=== PATIENT | male | born 1960 | race Caucasian/White ===

== ENCOUNTER 2017-02-24 10:31 | Inpatient (IN) | payer OTHER ==
--- NOTE | 2017-02-24 12:24 | ED ---
General Adult HPI - General Chief complaint: Abdominal Pain Stated complaint: abd pain Time Seen by Provider: 02/24/17 12:03 Source: patient, RN notes reviewed Mode of arrival: ambulatory Limitations: no limitations - History of Present Illness Initial comments: Patient is a 48-year-old male presents emergency room for evaluation shortness of breath. Patient states he has a history of COPD. Consider the past week he began having increasing shortness of breath. Patient states he also noticed that his abdomen is very distended along with swelling of his lower legs. Patient states he went to see his primary care provider today. Patient states that she was sent here for further workup. Patient states he was told that he gained 46 pounds in the last 2 months. Patient does admit that he had abnormal labs during last visit and was supposed to follow-up and have imaging and stress test done and never followed up. Patient states he has a history of stroke about 4 years ago. Patient denies history of OR. Patient does state he smokes about a pack per day. Patient states he has a history of alcohol abuse. Patient states he has been alcohol free for about 21 days. Patient states he' s having very short of breath. Patient states having abdominal pain from distention. Patient denies nausea or vomiting. - Related Data Home Medications Medication Instructions Recorded Confirmed Ferrous Sulfate [Feosol] 325 mg PO BID 02/24/17 02/24/17 Levothyroxine Sodium [Synthroid] 150 mcg PO DAILY 02/24/17 02/24/17 Mirtazapine [Remeron] 45 mg PO HS 02/24/17 02/24/17 Nitrostat 0.3mg 1 tab PO Q5M PRN 02/24/17 02/24/17 Pravastatin Sodium [Pravachol] 40 mg PO DAILY 02/24/17 02/24/17 QUEtiapine FUMARATE [SEROquel] 400 mg PO HS 02/24/17 02/24/17 amLODIPine [Norvasc] 10 mg PO DAILY 02/24/17 02/24/17 metFORMIN HCL [Glucophage] 500 mg PO BID 02/24/17 02/24/17 Allergies Allergy/AdvReac Type Severity Reaction Status Date / Time Penicillins Allergy Unknown Verified 02/24/17 13:11 Childhood Review of Systems ROS Statement: Those systems with pertinent positive or pertinent negative responses have been documented in the HPI. ROS Other: All systems not noted in ROS Statement are negative. Past Medical History Past Medical History: COPD, Hypertension, Thyroid Disorder History of Any Multi-Drug Resistant Organisms: None Reported Past Surgical History: Orthopedic Surgery Additional Past Surgical History / Comment(s): right kidney removed Past Psychological History: Depression Smoking Status: Current every day smoker Past Alcohol Use History: Heavy, Occasional Past Drug Use History: None Reported General Exam Limitations: no limitations General appearance: alert Head exam: Present: atraumatic, normocephalic, normal inspection Eye exam: Present: normal appearance Neck exam: Present: normal inspection Respiratory exam: Present: respiratory distress, rales, decreased breath sounds Cardiovascular Exam: Present: normal rhythm, tachycardia, normal heart sounds GI/Abdominal exam: Present: distended, tenderness Extremities exam: Present: other (Bilateral pitting edema) Back exam: Present: normal inspection Neurological exam: Present: alert, oriented X3 Psychiatric exam: Present: normal affect, normal mood Skin exam: Present: warm, dry, intact, normal color. Absent: rash Course Vital Signs 02/24/17 02/24/17 02/24/17 10:33 16:10 16:44 Temperature 97.5 F L 98.9 F 98.8 F Pulse Rate 108 H 99 Pulse Rate [ 100 Pulse Oximetery ] Respiratory 20 16 16 Rate Blood Pressure 149/68 160/85 Blood Pressure 170/80 [Left Arm] O2 Sat by Pulse 99 99 100 Oximetry EKG Findings - EKG Comments: EKG Findings:: Normal sinus rhythm, ventricular rate 100 bpm, DE interval 130 ms , QS duration 80 ms, QT/QTC 382/492 ms Medical Decision Making - Medical Decision Making Patient is a 56-year-old male presents to the emergency room for evaluation of shortness of breath and abdominal distention. D-dimer elevated. CT shows no evidence of PE. Case discussed Dr. Chavis. Dr. Chavis discussed case with Dr. Camargo who came in and evaluated patient. Patient will be admitted for further evaluation of ascites. - Lab Data Result diagrams: 02/24/17 12:42 02/24/17 12:42 Lab Results 02/24/17 02/24/17 02/24/17 Range/Units 12:42 12:42 12:42 WBC 2.6 L (3.8-10.6) k/uL RBC 3.42 L (4.30-5.90) m/uL Hgb 10.3 L (13.0-17.5) gm/dL Hct 32.6 L (39.0-53.0) % MCV 95.2 (80.0-100.0) fL MCH 30.2 (25.0-35.0) pg MCHC 31.7 (31.0-37.0) g/dL RDW 17.0 H (11.5-15.5) % Plt Count 115 L (150-450) k/uL Neutrophils % (Manual) 65.0 % Lymphocytes % (Manual) 24.0 % Monocytes % (Manual) 10.0 % Eosinophils % (Manual) 1.0 % Neutrophils # (Manual) 1.7 (1.3-7.7) k/uL Lymphocytes # (Manual) 0.6 L (1.0-4.8) k/uL Monocytes # (Manual) 0.3 (0-1.0) k/uL Eosinophils # (Manual) 0.0 (0-0.7) k/uL Nucleated RBCs 0 (0-0) /100 WBC Manual Slide Review Performed Hypochromasia Marked Poikilocytosis (manual Present Anisocytosis Slight PT (9.0-12.0) sec INR (<1.1) APTT (22.0-30.0) sec D-Dimer (<0.60) mg/L FEU Sodium 138 (137-145) mmol/L Potassium 4.1 (3.5-5.1) mmol/L Chloride 107 (98-107) mmol/L Carbon Dioxide 22 (22-30) mmol/L Anion Gap 9 mmol/L BUN 9 (9-20) mg/dL Creatinine 0.72 (0.66-1.25) mg/dL Est GFR (MDRD) Af Amer >60 (>60 ml/min/1.73 sqM) Est GFR (MDRD) Non-Af >60 (>60 ml/min/1.73 sqM) Glucose 111 H (74-99) mg/dL Estimated Ave Glu mg/dL mg/dL Hemoglobin A1c (4.2-6.1) % Plasma Lactic Acid Iker (0.7-2.0) mmol/L Calcium 8.7 (8.4-10.2) mg/dL Magnesium 1.8 (1.6-2.3) mg/dL Total Bilirubin 1.7 H (0.2-1.3) mg/dL AST 74 H (17-59) U/L ALT 33 (21-72) U/L Alkaline Phosphatase 146 H (38-126) U/L Total Creatine Kinase 120 (55-170) U/L CK-MB (CK-2) 3.6 H* (0.0-2.4) ng/mL CK-MB (CK-2) Rel Index 3.0 Troponin I <0.012 (0.000-0.034) ng/mL NT-Pro-B Natriuret Pep pg/mL Total Protein 7.5 (6.3-8.2) g/dL Albumin 3.1 L (3.5-5.0) g/dL Amylase 57 (30-110) U/L Lipase 149 (23-300) U/L 02/24/17 02/24/17 02/24/17 Range/Units 12:42 12:42 12:42 WBC (3.8-10.6) k/uL RBC (4.30-5.90) m/uL Hgb (13.0-17.5) gm/dL Hct (39.0-53.0) % MCV (80.0-100.0) fL MCH (25.0-35.0) pg MCHC (31.0-37.0) g/dL RDW (11.5-15.5) % Plt Count (150-450) k/uL Neutrophils % (Manual) % Lymphocytes % (Manual) % Monocytes % (Manual) % Eosinophils % (Manual) % Neutrophils # (Manual) (1.3-7.7) k/uL Lymphocytes # (Manual) (1.0-4.8) k/uL Monocytes # (Manual) (0-1.0) k/uL Eosinophils # (Manual) (0-0.7) k/uL Nucleated RBCs (0-0) /100 WBC Manual Slide Review Hypochromasia Poikilocytosis (manual Anisocytosis PT 15.4 H (9.0-12.0) sec INR 1.6 (<1.1) APTT 29.9 (22.0-30.0) sec D-Dimer 4.72 H (<0.60) mg/L FEU Sodium (137-145) mmol/L Potassium (3.5-5.1) mmol/L Chloride (98-107) mmol/L Carbon Dioxide (22-30) mmol/L Anion Gap mmol/L BUN (9-20) mg/dL Creatinine (0.66-1.25) mg/dL Est GFR (MDRD) Af Amer (>60 ml/min/1.73 sqM) Est GFR (MDRD) Non-Af (>60 ml/min/1.73 sqM) Glucose (74-99) mg/dL Estimated Ave Glu mg/dL mg/dL Hemoglobin A1c (4.2-6.1) % Plasma Lactic Acid Iker 2.8 H* (0.7-2.0) mmol/L Calcium (8.4-10.2) mg/dL Magnesium (1.6-2.3) mg/dL Total Bilirubin (0.2-1.3) mg/dL AST (17-59) U/L ALT (21-72) U/L Alkaline Phosphatase (38-126) U/L Total Creatine Kinase (55-170) U/L CK-MB (CK-2) (0.0-2.4) ng/mL CK-MB (CK-2) Rel Index Troponin I (0.000-0.034) ng/mL NT-Pro-B Natriuret Pep 38 pg/mL Total Protein (6.3-8.2) g/dL Albumin (3.5-5.0) g/dL Amylase (30-110) U/L Lipase (23-300) U/L 02/24/17 Range/Units 12:42 WBC (3.8-10.6) k/uL RBC (4.30-5.90) m/uL Hgb (13.0-17.5) gm/dL Hct (39.0-53.0) % MCV (80.0-100.0) fL MCH (25.0-35.0) pg MCHC (31.0-37.0) g/dL RDW (11.5-15.5) % Plt Count (150-450) k/uL Neutrophils % (Manual) % Lymphocytes % (Manual) % Monocytes % (Manual) % Eosinophils % (Manual) % Neutrophils # (Manual) (1.3-7.7) k/uL Lymphocytes # (Manual) (1.0-4.8) k/uL Monocytes # (Manual) (0-1.0) k/uL Eosinophils # (Manual) (0-0.7) k/uL Nucleated RBCs (0-0) /100 WBC Manual Slide Review Hypochromasia Poikilocytosis (manual Anisocytosis PT (9.0-12.0) sec INR (<1.1) APTT (22.0-30.0) sec D-Dimer (<0.60) mg/L FEU Sodium (137-145) mmol/L Potassium (3.5-5.1) mmol/L Chloride (98-107) mmol/L Carbon Dioxide (22-30) mmol/L Anion Gap mmol/L BUN (9-20) mg/dL Creatinine (0.66-1.25) mg/dL Est GFR (MDRD) Af Amer (>60 ml/min/1.73 sqM) Est GFR (MDRD) Non-Af (>60 ml/min/1.73 sqM) Glucose (74-99) mg/dL Estimated Ave Glu mg/dL 88 mg/dL Hemoglobin A1c 4.7 (4.2-6.1) % Plasma Lactic Acid Iker (0.7-2.0) mmol/L Calcium (8.4-10.2) mg/dL Magnesium (1.6-2.3) mg/dL Total Bilirubin (0.2-1.3) mg/dL AST (17-59) U/L ALT (21-72) U/L Alkaline Phosphatase (38-126) U/L Total Creatine Kinase (55-170) U/L CK-MB (CK-2) (0.0-2.4) ng/mL CK-MB (CK-2) Rel Index Troponin I (0.000-0.034) ng/mL NT-Pro-B Natriuret Pep pg/mL Total Protein (6.3-8.2) g/dL Albumin (3.5-5.0) g/dL Amylase (30-110) U/L Lipase (23-300) U/L - Radiology Data Radiology results: report reviewed, image reviewed Disposition Clinical Impression: Ascites Disposition: ADMITTED IP TO THIS [facility] Condition: Stable Decision Date: 02/24/17
[2017-02-24 12:59] LABS: Anisocytosis Slight; Aty Lym Flag Slight; CH 29.1; CHCM 30.7; HCT 32.6 % (39.0-53.0); HDW 3.12; HGB 10.3 gm/dL (13.0-17.5); Hypochromasia Marked; MCH 30.2 pg (25.0-35.0); MCHC 31.7 g/dL (31.0-37.0); MCV 95.2 fL (80.0-100.0); Mean Platelet Volume 9.2; RBC 3.42 m/uL (4.30-5.90); WBC 2.6 k/uL (3.8-10.6); WBC (Perox) 2.68
--- NOTE | 2017-02-24 13:12 | XR ---
EXAMINATION TYPE: XR chest 2V DATE OF EXAM: 02/24/2017 1:02 PM COMPARISON: Prior chest x-ray 08 June 2014 HISTORY: Chest pain TECHNIQUE: Frontal and lateral views of the chest are obtained. FINDINGS: There is no pleural effusion, or pneumothorax seen. The cardiac silhouette size is within normal limits. Strand-like densities at the right lung base likely represent subsegmental atelectas is. There are overlying cardiac leads. The osseous structures are intact. IMPRESSION: Basilar atelectasis, follow-up as indicated
[2017-02-24 13:17] LABS: ALT 33 U/L (21-72); AST 74 U/L (17-59); Alkaline Phosphatase 146 U/L (38-126); Amylase 57 U/L (30-110); Anion Gap 9 mmol/L; Blood Urea Nitrogen 9 mg/dL (9-20); Calcium 8.7 mg/dL (8.4-10.2); Carbon Dioxide 22 mmol/L (22-30); Chloride 107 mmol/L (98-107); Glucose 111 mg/dL (74-99); INR 1.6 (<1.1); Magnesium 1.8 mg/dL (1.6-2.3); Non-African American GFR(MDRD) >60 (>60 ml/min/1.73 sqM); Partial Thromboplastin Time 29.9 sec (22.0-30.0); Potassium 4.1 mmol/L (3.5-5.1); Prothrombin Time 15.4 sec (9.0-12.0); Sodium 138 mmol/L (137-145); Total Bilirubin 1.7 mg/dL (0.2-1.3); Total Protein 7.5 g/dL (6.3-8.2)
[2017-02-24 13:19] LABS: Creatine Kinase 120 U/L (55-170)
[2017-02-24] MEDS ORDERED: DEXAMETHASONE ORAL 4 MG/ML VIAL PO ONE (13:24)
[2017-02-24] MEDS ORDERED: RX INFO: IV CONTRAST WAS GIVEN 1 EACH MISC MISCELLANE PRN (13:24)
[2017-02-24 13:31] LABS: Troponin I <0.012 ng/mL (0.000-0.034)
[2017-02-24 13:34] LABS: Creatine Kinase MB 3.6 ng/mL (0.0-2.4)
[2017-02-24 13:53] LABS: Add Differential Manual Differential
[2017-02-24 13:56] LABS: Manual Review Performed; Nucleated Red Blood Cells 0 /100 WBC (0-0); Total Cells Counted 100
--- NOTE | 2017-02-24 14:25 | CT ---
EXAMINATION TYPE: CT angio chest DATE OF EXAM: 02/24/2017 2:09 PM COMPARISON: Chest x-ray same date HISTORY: SOB due to abdomen swelling CT DLP: 383.1 mGycm Automated exposure control for dose reduction was used. CONTRAST: CTA scan of the thorax is performed with IV Contrast, patient injected with 100 mL of Omnipaque 350, pulmonary embolism protocol. MIP images are created and reviewed. 3D reconstructed images are creat ed on an independent workstation and reviewed. FINDINGS: LUNGS: The lungs are grossly clear, there is no concerning parenchymal mass or nodule identified. T here is no pleural effusion or pneumothorax seen. The tracheobronchial tree is patent, some retained secretions likely present. AORTA: Root of the aorta measures approximately 4.1 cm, borderline enlarged. There are calcification s present in the coronary arteries. MEDIASTINUM: There is poor enhancement of the pulmonary artery and its branches, there is no CT evide nce for pulmonary embolism. There are no greater than 1 cm hilar or mediastinal lymph nodes. No pe ricardial effusion is seen. OTHER: There is extensive ascites. Nodular contour within the liver compatible with underlying cirrh osis. Hepatosplenomegaly is suspected. 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 IMPRESSION: THE EXAM IS LIMITED FOR PULMONARY EMBOLISM EVALUATION. ASCITES, EVIDENCE OF PORTAL HYPERTENSION WITH CIRRHOSIS, HEPATOSPLENOMEGALY. 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
[2017-02-24] MEDS ORDERED: PROCHLORPERAZINE 5 MG TAB PO PRN (15:37)
--- NOTE | 2017-02-24 17:34 | P.HPIM ---
History of Present Illness H&P Date: 02/24/17 Chief Complaint: abd distention 56 yr old with history of bipolar disorder, alcohol use was admitted to the hospital with complaints of worsening abdominal distention and lower extremity edema. pt's last drink was 21 days, ago. Pt noted progressively worsening of abdominal distention. Pt also noted a rash on his upper chest area. Pt has been drinking 6 beers regularly for the last few decades. Denies having chest pain, nausea, vomiting, TREVON, urinary urgency or frequency or change in bowel habits. NO fevers are reported. Pt doesnot have a history of liver disease in the past. Review of Systems All systems: negative (Noted in the HPI) Past Medical History Past Medical History: COPD, Hypertension, Thyroid Disorder History of Any Multi-Drug Resistant Organisms: None Reported Past Surgical History: Orthopedic Surgery Additional Past Surgical History / Comment(s): right kidney removed Past Psychological History: Depression Smoking Status: Current every day smoker Past Alcohol Use History: Heavy, Occasional Past Drug Use History: None Reported Medications and Allergies Home Medications Medication Instructions Recorded Confirmed Type Ferrous Sulfate [Feosol] 325 mg PO BID 02/24/17 02/24/17 History Levothyroxine Sodium [Synthroid] 150 mcg PO DAILY 02/24/17 02/24/17 History Mirtazapine [Remeron] 45 mg PO HS 02/24/17 02/24/17 History Nitrostat 0.3mg 1 tab PO Q5M PRN 02/24/17 02/24/17 History Pravastatin Sodium [Pravachol] 40 mg PO DAILY 02/24/17 02/24/17 History QUEtiapine FUMARATE [SEROquel] 400 mg PO HS 02/24/17 02/24/17 History amLODIPine [Norvasc] 10 mg PO DAILY 02/24/17 02/24/17 History metFORMIN HCL [Glucophage] 500 mg PO BID 02/24/17 02/24/17 History Allergies Allergy/AdvReac Type Severity Reaction Status Date / Time Penicillins Allergy Unknown Verified 02/24/17 13:11 Childhood Physical Exam Vitals: Vital Signs Temp Pulse Resp BP Pulse Ox 02/24/17 16:10 98.9 F 99 16 160/85 99 - Constitutional General appearance: average body habitus, no acute distress - EENT Eyes: PERRLA - Respiratory Respiratory: negative: CTA, dullness, rales, rhonchi - Cardiovascular Rhythm: regular Heart sounds: normal: S1, S2 Abnormal Heart Sounds: no systolic murmur leg Peripheral Edema: bilateral: 2+, Pitting - Gastrointestinal General gastrointestinal: distended, normal bowel sounds Localized gastrointestinal: tender: diffuse (ascites noted, not tense at this time.) - Integumentary Integumentary: rash (diffuse, purpura noted. ) - Neurologic Neurologic: CNII-XII intact (No focal deficits. ) - Psychiatric Psychiatric: A&O x's 3 Results CBC & Chem 7: 02/24/17 12:42 02/24/17 12:42 Assessment and Plan Plan: 1. Acute alcoholic Hepatitis causing ascites. 2. Pancytopenia likely sec to alcohol use. 3. Hypothyroidism 4. Bipolar disorder 5. HTN 6. Dyslipidemia Plan Hold off on paracentesis Iv lasix 40mg bid spironolactone 25mg bid Fluid restriction repeat labs Strict I/o DVT prophylaxis.
[2017-02-24 17:36] VITALS: BMI 33.5
[2017-02-24] MEDS: oxyCODONE-APAP 5-325MG 1 EACH TAB PO PRN ×2 (17:47→21:45)
[2017-02-24 18:07] LABS: Hemoglobin A1C 4.7 % (4.2-6.1)
[2017-02-24] MEDS: MIRTAZAPINE 45 MG TABLET PO SCH (20:16)
[2017-02-24] MEDS: FUROSEMIDE 10 MG/ML 4 ML VIAL IV SCH (20:17)
[2017-02-24] MEDS: QUEtiapine 400 MG TAB PO SCH (20:17)
[2017-02-24] MEDS: SPIRONOLACTONE 25 MG TAB PO SCH (20:17)
[2017-02-24 21:27] LABS: Hepatitis B Surface Ag Index 0.09
[2017-02-24 21:32] LABS: Hepatitis B Core IgM Index 0.05
[2017-02-24 21:44] LABS: Hepatitis C Virus IgG Index 0.06
[2017-02-24 21:46] LABS: Hepatitis C Virus IgG Ab Negative (Negative)
[2017-02-24 21:53] LABS: Glucose,Whole Blood 102 mg/dL (75-99)
[2017-02-25] MEDS: oxyCODONE-APAP 5-325MG 1 EACH TAB PO PRN ×5 (03:59→19:43)
[2017-02-25 04:09] LABS: Glucose,Whole Blood 82 mg/dL (75-99)
--- NOTE | 2017-02-25 06:16 | XR ---
EXAM: XR Right Elbow Complete, 3 or More Views. CLINICAL HISTORY: Reason: swollen right elbow TECHNIQUE: Frontal, lateral and oblique views of the right elbow. COMPARISON: No relevant prior studies available. FINDINGS: Bones/joints: Unremarkable. No acute fracture. No dislocation. Soft tissues: Soft tissue swelling is suspected in the lateral aspect of distal arm and elbow. IMPRESSION: No fracture or dislocation.
[2017-02-25] MEDS: NICOTINE 21MG/24HR PATCH TRANSDERM SCH (06:49)
[2017-02-25] MEDS: PANTOPRAZOLE 40 MG TABLET PO SCH (06:49)
[2017-02-25] MEDS: LEVOTHYROXINE 75 MCG TAB PO SCH (06:50)
[2017-02-25 07:06] LABS: INR 1.6 (<1.1); Prothrombin Time 15.3 sec (9.0-12.0)
[2017-02-25 07:08] LABS: ALT 27 U/L (21-72); AST 67 U/L (17-59); Alkaline Phosphatase 128 U/L (38-126); Anion Gap 7 mmol/L; Blood Urea Nitrogen 10 mg/dL (9-20); Calcium 8.4 mg/dL (8.4-10.2); Carbon Dioxide 24 mmol/L (22-30); Chloride 107 mmol/L (98-107); Glucose 78 mg/dL (74-99); Magnesium 1.8 mg/dL (1.6-2.3); Non-African American GFR(MDRD) >60 (>60 ml/min/1.73 sqM); Sodium 138 mmol/L (137-145); Total Bilirubin 1.4 mg/dL (0.2-1.3); Total Protein 6.9 g/dL (6.3-8.2)
[2017-02-25 07:40] LABS: Anisocytosis Slight; Aty Lym Flag Slight; CH 28.5; HCT 30.6 % (39.0-53.0); HDW 3.06; HGB 9.5 gm/dL (13.0-17.5); Hypochromasia Marked; MCH 29.6 pg (25.0-35.0); MCV 95.2 fL (80.0-100.0); Mean Platelet Volume 7.9; RBC 3.21 m/uL (4.30-5.90); RDW 16.6 % (11.5-15.5); WBC 2.8 k/uL (3.8-10.6); WBC (Perox) 2.86
[2017-02-25] MEDS: FUROSEMIDE 10 MG/ML 4 ML VIAL IV SCH (07:50)
[2017-02-25] MEDS: PRAVASTATIN SODIUM 40 MG TAB PO SCH (07:51)
[2017-02-25] MEDS: SPIRONOLACTONE 25 MG TAB PO SCH ×3 (07:51→19:45)
[2017-02-25 08:34] LABS: Add Differential Manual Differential
[2017-02-25 08:37] LABS: Nucleated Red Blood Cells 0 /100 WBC (0-0); Total Cells Counted 100
[2017-02-25 08:43] LABS: Polychromasia Present
[2017-02-25] MEDS: ENOXAPARIN 40 MG/0.4 ML SYRINGE SQ SCH (10:01)
[2017-02-25 12:13] LABS: Glucose,Whole Blood 96 mg/dL (75-99)
--- NOTE | 2017-02-25 13:08 | P.PN ---
Subjective 56 yr old with history of bipolar disorder, alcohol use was admitted to the hospital with complaints of worsening abdominal distention and lower extremity edema. pt's last drink was 21 days, ago. Pt noted progressively worsening of abdominal distention. Pt also noted a rash on his upper chest area. Pt has been drinking 6 beers regularly for the last few decades. Denies having chest pain, nausea, vomiting, TREVON, urinary urgency or frequency or change in bowel habits. NO fevers are reported. Pt doesnot have a history of liver disease in the past. 02/25/17 States to be feeling slightly better. Notices that his edema in his legs is decreased. States his abdomen is not as distended as well. States that he has been having diffuse cramps. No fevers, chills, nausea, vomiting, diarrhea reported at this time. Patient also does not report headaches, blurry vision or chest pain. Objective - Vital Signs Vital signs: Vital Signs Temp 97.3 F L 02/25/17 11:01 Pulse 92 02/25/17 11:01 Resp 18 02/25/17 11:01 BP 141/77 02/25/17 11:01 Pulse Ox 97 02/25/17 11:01 Intake & Output 02/24/17 02/25/17 02/25/17 18:59 06:59 18:59 Output Total 2240 275 Balance -2240 -275 Weight 112 kg 108.3 kg Output: Urine 2240 275 Other: Voiding Method Urinal Urinal # Voids 1 - Exam Physical exam Gen. appearance oriented 3 in no distress Neck is supple no JVD Lungs good air entry clear to auscultation no rhonchi or wheezing Heart S1-S2 heard regular rate and rhythm no murmurs appreciated Abdomen distended however no tense ascites noted tympanic to percussion. No organomegaly appreciated. Genitourinary no scrotal edema noted. Lower extremities 1+ edema significantly improved since admission Neurologically cranial nerves II-12 grossly intact no focal motor or sensory deficits noted Skin no abnormalities appreciated - Labs CBC & Chem 7: 02/25/17 06:18 02/25/17 06:18 Labs: Abnormal Lab Results - Last 24 Hours (Table) 02/24/17 02/25/17 02/25/17 Range/Units 21:42 06:18 06:18 WBC 2.8 L (3.8-10.6) k/uL RBC 3.21 L (4.30-5.90) m/uL Hgb 9.5 L (13.0-17.5) gm/dL Hct 30.6 L (39.0-53.0) % RDW 16.6 H (11.5-15.5) % Plt Count 133 L (150-450) k/uL Lymphocytes # (Manual) 0.5 L (1.0-4.8) k/uL PT 15.3 H (9.0-12.0) sec POC Glucose (mg/dL) 102 H (75-99) mg/dL Total Bilirubin (0.2-1.3) mg/dL AST (17-59) U/L Alkaline Phosphatase (38-126) U/L Albumin (3.5-5.0) g/dL 02/25/17 Range/Units 06:18 WBC (3.8-10.6) k/uL RBC (4.30-5.90) m/uL Hgb (13.0-17.5) gm/dL Hct (39.0-53.0) % RDW (11.5-15.5) % Plt Count (150-450) k/uL Lymphocytes # (Manual) (1.0-4.8) k/uL PT (9.0-12.0) sec POC Glucose (mg/dL) (75-99) mg/dL Total Bilirubin 1.4 H (0.2-1.3) mg/dL AST 67 H (17-59) U/L Alkaline Phosphatase 128 H (38-126) U/L Albumin 2.8 L (3.5-5.0) g/dL Assessment and Plan Plan: 1. Acute alcoholic Hepatitis causing ascites. 2. Pancytopenia likely sec to alcohol use. 3. Hypothyroidism 4. Bipolar disorder 5. HTN 6. Dyslipidemia Plan Continue holding off on paracentesis. Lasix will be increased to 60 mg IV twice a day. Spironolactone will be titrated up to 50 mg twice a day. DVT prophylaxis.
[2017-02-25] MEDS ORDERED: IPRATROPIUM-ALBUTEROL 3 ML NEB INHALATION PRN (15:20)
[2017-02-25] MEDS: MAGNESIUM OXIDE 400 MG TAB PO SCH ×2 (15:51→19:45)
[2017-02-25 17:16] LABS: Glucose,Whole Blood 87 mg/dL (75-99)
[2017-02-25] MEDS: FUROSEMIDE 10 MG/ML 10 ML VIAL IV SCH (19:44)
[2017-02-25] MEDS: MIRTAZAPINE 45 MG TABLET PO SCH (19:45)
[2017-02-25] MEDS: QUEtiapine 400 MG TAB PO SCH (19:45)
[2017-02-25 20:57] LABS: Glucose,Whole Blood 89 mg/dL (75-99)
[2017-02-26] MEDS: MAGNESIUM SULFATE-D5W PMX 1 GM in DEXTROSE/WATER 1 100ML.BAG IVPB SCH ×2 (00:10→01:40)
[2017-02-26] MEDS: oxyCODONE-APAP 5-325MG 1 EACH TAB PO PRN ×4 (00:11→15:48)
[2017-02-26 06:14] LABS: Glucose,Whole Blood 108 mg/dL (75-99)
[2017-02-26] MEDS: LEVOTHYROXINE 75 MCG TAB PO SCH (06:32)
[2017-02-26] MEDS: PANTOPRAZOLE 40 MG TABLET PO SCH (06:33)
[2017-02-26] MEDS: NICOTINE 21MG/24HR PATCH TRANSDERM SCH (06:33)
[2017-02-26 06:45] LABS: Anisocytosis Slight; CHCM 30.9; HCT 30.6 % (39.0-53.0); HDW 3.06; HGB 9.2 gm/dL (13.0-17.5); Hypochromasia Moderate; MCH 28.3 pg (25.0-35.0); MCHC 30.1 g/dL (31.0-37.0); MCV 93.9 fL (80.0-100.0); Mean Platelet Volume 8.7; RBC 3.26 m/uL (4.30-5.90); RDW 16.9 % (11.5-15.5); WBC 2.6 k/uL (3.8-10.6); WBC (Perox) 2.55
[2017-02-26 06:48] LABS: ALT 34 U/L (21-72); AST 65 U/L (17-59); Alkaline Phosphatase 117 U/L (38-126); Anion Gap 5 mmol/L; Blood Urea Nitrogen 12 mg/dL (9-20); Calcium 7.8 mg/dL (8.4-10.2); Carbon Dioxide 28 mmol/L (22-30); Chloride 104 mmol/L (98-107); Glucose 94 mg/dL (74-99); Magnesium 2.1 mg/dL (1.6-2.3); Non-African American GFR(MDRD) >60 (>60 ml/min/1.73 sqM); Potassium 3.9 mmol/L (3.5-5.1); Sodium 137 mmol/L (137-145); Total Protein 6.4 g/dL (6.3-8.2)
[2017-02-26 07:21] LABS: Add Differential Manual Differential
[2017-02-26 07:29] LABS: Manual Review Performed; Nucleated Red Blood Cells 0 /100 WBC (0-0); Total Cells Counted 100
[2017-02-26] MEDS: MAGNESIUM OXIDE 400 MG TAB PO SCH ×3 (09:49→21:14)
[2017-02-26] MEDS: PRAVASTATIN SODIUM 40 MG TAB PO SCH (09:49)
[2017-02-26] MEDS: SPIRONOLACTONE 25 MG TAB PO SCH ×2 (09:50→21:14)
[2017-02-26] MEDS: FUROSEMIDE 10 MG/ML 10 ML VIAL IV SCH ×2 (10:04→21:14)
[2017-02-26 12:12] LABS: Glucose,Whole Blood 145 mg/dL (75-99)
[2017-02-26] MEDS: ENOXAPARIN 40 MG/0.4 ML SYRINGE SQ SCH (12:33)
--- NOTE | 2017-02-26 15:25 | P.PN ---
Subjective 56 yr old with history of bipolar disorder, alcohol use was admitted to the hospital with complaints of worsening abdominal distention and lower extremity edema. pt's last drink was 21 days, ago. Pt noted progressively worsening of abdominal distention. Pt also noted a rash on his upper chest area. Pt has been drinking 6 beers regularly for the last few decades. Denies having chest pain, nausea, vomiting, TREVON, urinary urgency or frequency or change in bowel habits. NO fevers are reported. Pt doesnot have a history of liver disease in the past. 02/25/17 States to be feeling slightly better. Notices that his edema in his legs is decreased. States his abdomen is not as distended as well. States that he has been having diffuse cramps. No fevers, chills, nausea, vomiting, diarrhea reported at this time. Patient also does not report headaches, blurry vision or chest pain. 02/26/2017 Patient states to be feeling significantly better. Abdomen size has decreased according to him. No fevers, chills, nausea, vomiting, abdominal pain, chest pain, difficulty breathing reported. His respiratory status has significantly improved since admission as well. Objective - Vital Signs Vital signs: Vital Signs Temp 97.2 F L 02/26/17 11:00 Pulse 97 02/26/17 11:00 Resp 16 02/26/17 12:00 BP 121/70 02/26/17 11:00 Pulse Ox 96 02/26/17 11:00 Intake & Output 02/25/17 02/26/17 02/26/17 18:59 06:59 18:59 Intake Total 360 680 300 Output Total 525 2070 2200 Balance -165 -1390 -1900 Weight 107.1 kg Intake: IV 200 Magnesium Sulfate-D5w Pmx 200 1 gm In Dextrose/Water 1 100ml.bag @ 100 mls/hr IVPB Q1H ON LICENSE OF [facility] Rx#: [id number] Oral 360 480 300 Output: Urine 525 2070 2200 Other: Voiding Method Urinal Urinal # Voids 1 - Exam Physical exam Gen. appearance oriented 3 in no distress Neck is supple no JVD Lungs good air entry clear to auscultation no rhonchi or wheezing Heart S1-S2 heard regular rate and rhythm no murmurs appreciated Abdomen distended however no tense ascites noted tympanic to percussion. No organomegaly appreciated. Genitourinary no scrotal edema noted. Lower extremities 1+ edema significantly improved since admission Neurologically cranial nerves II-12 grossly intact no focal motor or sensory deficits noted Skin no abnormalities appreciated - Labs CBC & Chem 7: 02/26/17 06:17 02/26/17 06:17 Labs: Abnormal Lab Results - Last 24 Hours (Table) 02/26/17 02/26/17 02/26/17 Range/Units 06:12 06:17 06:17 WBC 2.6 L (3.8-10.6) k/uL RBC 3.26 L (4.30-5.90) m/uL Hgb 9.2 L (13.0-17.5) gm/dL Hct 30.6 L (39.0-53.0) % MCHC 30.1 L (31.0-37.0) g/dL RDW 16.9 H (11.5-15.5) % Plt Count 123 L (150-450) k/uL Lymphocytes # (Manual) 0.6 L (1.0-4.8) k/uL POC Glucose (mg/dL) 108 H (75-99) mg/dL Calcium 7.8 L (8.4-10.2) mg/dL AST 65 H (17-59) U/L Albumin 2.6 L (3.5-5.0) g/dL 02/26/17 Range/Units 12:10 WBC (3.8-10.6) k/uL RBC (4.30-5.90) m/uL Hgb (13.0-17.5) gm/dL Hct (39.0-53.0) % MCHC (31.0-37.0) g/dL RDW (11.5-15.5) % Plt Count (150-450) k/uL Lymphocytes # (Manual) (1.0-4.8) k/uL POC Glucose (mg/dL) 145 H (75-99) mg/dL Calcium (8.4-10.2) mg/dL AST (17-59) U/L Albumin (3.5-5.0) g/dL Assessment and Plan Plan: 1. Acute alcoholic Hepatitis causing ascites. 2. Pancytopenia likely sec to alcohol use. 3. Hypothyroidism 4. Bipolar disorder 5. HTN 6. Dyslipidemia Plan Continue holding off on paracentesis. Lasix will be increased to 60 mg IV twice a day. Spironolactone will be titrated up to 100 mg by mouth twice a day. Protein supplements will be added. If patient does have significant amount of distention we'll likely perform a bedside paracentesis tomorrow. DVT prophylaxis.
[2017-02-26 17:02] LABS: Glucose,Whole Blood 115 mg/dL (75-99)
[2017-02-26 20:31] LABS: Glucose,Whole Blood 98 mg/dL (75-99)
[2017-02-26] MEDS: RIFAMPIN 300 MG CAP PO SCH (21:13)
[2017-02-26] MEDS: MIRTAZAPINE 45 MG TABLET PO SCH (21:14)
[2017-02-26] MEDS: QUEtiapine 400 MG TAB PO SCH (21:15)
[2017-02-27 06:06] LABS: Glucose,Whole Blood 98 mg/dL (75-99)
[2017-02-27 06:33] LABS: ALT 31 U/L (21-72); AST 63 U/L (17-59); Alkaline Phosphatase 116 U/L (38-126); Anion Gap 4 mmol/L; Blood Urea Nitrogen 13 mg/dL (9-20); Carbon Dioxide 29 mmol/L (22-30); Chloride 104 mmol/L (98-107); Glucose 84 mg/dL (74-99); Non-African American GFR(MDRD) >60 (>60 ml/min/1.73 sqM); Potassium 3.8 mmol/L (3.5-5.1); Sodium 137 mmol/L (137-145); Total Bilirubin 1.5 mg/dL (0.2-1.3); Total Protein 6.6 g/dL (6.3-8.2)
[2017-02-27] MEDS: PANTOPRAZOLE 40 MG TABLET PO SCH (06:47)
[2017-02-27] MEDS: LEVOTHYROXINE 75 MCG TAB PO SCH (06:47)
[2017-02-27 06:49] LABS: Anisocytosis Slight; CHCM 31.3; HCT 30.1 % (39.0-53.0); HDW 3.11; HGB 9.3 gm/dL (13.0-17.5); Hypochromasia Moderate; MCH 28.7 pg (25.0-35.0); MCHC 30.9 g/dL (31.0-37.0); MCV 93.1 fL (80.0-100.0); Mean Platelet Volume 8.8; RBC 3.23 m/uL (4.30-5.90); RDW 16.8 % (11.5-15.5); WBC 2.3 k/uL (3.8-10.6); WBC (Perox) 2.37
[2017-02-27] MEDS: oxyCODONE-APAP 5-325MG 1 EACH TAB PO PRN ×2 (06:51→12:56)
[2017-02-27 07:16] LABS: Add Differential Manual Differential
[2017-02-27 07:21] LABS: Manual Review Performed; Nucleated Red Blood Cells 0 /100 WBC (0-0); Target Cells Present; Total Cells Counted 100
[2017-02-27] MEDS: NICOTINE 21MG/24HR PATCH TRANSDERM SCH (08:28)
[2017-02-27] MEDS: FUROSEMIDE 10 MG/ML 10 ML VIAL IV SCH (08:28)
[2017-02-27] MEDS: ENOXAPARIN 40 MG/0.4 ML SYRINGE SQ SCH (08:28)
[2017-02-27] MEDS: SPIRONOLACTONE 25 MG TAB PO SCH (08:28)
[2017-02-27] MEDS: MAGNESIUM OXIDE 400 MG TAB PO SCH (08:29)
[2017-02-27] MEDS: RIFAMPIN 300 MG CAP PO SCH (08:29)
[2017-02-27] MEDS: PRAVASTATIN SODIUM 40 MG TAB PO SCH (08:29)
[2017-02-27 08:45] VITALS: RESP 18
[2017-02-27 11:21] VITALS: BP 117/62; PULSE 87; TEMP 97.2
[2017-02-27 12:06] LABS: Glucose,Whole Blood 123 mg/dL (75-99)
--- NOTE | 2017-02-27 20:10 | P.DS ---
Providers Date of admission: 02/24/17 15:38 Attending physician: Darvin Camargo MD Primary care physician: [facility] Course: 56 yr old with history of bipolar disorder, alcohol use was admitted to the hospital with complaints of worsening abdominal distention and lower extremity edema. pt's last drink was 21 days, ago. Pt noted progressively worsening of abdominal distention. Pt also noted a rash on his upper chest area. Pt has been drinking 6 beers regularly for the last few decades. Denies having chest pain, nausea, vomiting, TREVON, urinary urgency or frequency or change in bowel habits. NO fevers are reported. Pt doesnot have a history of liver disease in the past. 02/25/17 States to be feeling slightly better. Notices that his edema in his legs is decreased. States his abdomen is not as distended as well. States that he has been having diffuse cramps. No fevers, chills, nausea, vomiting, diarrhea reported at this time. Patient also does not report headaches, blurry vision or chest pain. 02/26/2017 Patient states to be feeling significantly better. Abdomen size has decreased according to him. No fevers, chills, nausea, vomiting, abdominal pain, chest pain, difficulty breathing reported. His respiratory status has significantly improved since admission as well. 02/27/17 NO complaints reported. - Exam Physical exam Gen. appearance oriented 3 in no distress Neck is supple no JVD Lungs good air entry clear to auscultation no rhonchi or wheezing Heart S1-S2 heard regular rate and rhythm no murmurs appreciated Abdomen distended however no tense ascites noted tympanic to percussion. No organomegaly appreciated. Genitourinary no scrotal edema noted. Lower extremities 1+ edema significantly improved since admission Neurologically cranial nerves II-12 grossly intact no focal motor or sensory deficits noted Skin no abnormalities appreciated Assessment and Plan Plan: 1. Acute alcoholic Hepatitis causing ascites. 2. Pancytopenia likely sec to alcohol use. 3. Hypothyroidism 4. Bipolar disorder 5. HTN 6. Dyslipidemia Over 14 l negative since admission Dc home to [facility] up [facility]. Continue diuretics High protein diet recommended. NO need for paracentesis Renal function needs to monitered closely Pt only has one kidney. Patient Condition at Discharge: Stable Plan - Discharge Summary New Discharge Prescriptions: Furosemide [Lasix] 60 mg PO BID #60 tablet Magnesium Oxide [Mag-Ox] 400 mg PO TID #90 tab Spironolactone [Aldactone] 100 mg PO BID #60 tab Discharge Medication List Ferrous Sulfate [Iron (65 MG Elemental)] 325 mg PO BID 02/24/17 [History] Levothyroxine Sodium [Synthroid] 150 mcg PO DAILY 02/24/17 [History] Mirtazapine [Remeron] 45 mg PO HS 02/24/17 [History] Nitrostat 0.3mg 1 tab PO Q5M PRN 02/24/17 [History] Pravastatin Sodium [Pravachol] 40 mg PO DAILY 02/24/17 [History] QUEtiapine FUMARATE [SEROquel] 400 mg PO HS 02/24/17 [History] metFORMIN HCL [Glucophage] 500 mg PO BID 02/24/17 [History] Furosemide [Lasix] 60 mg PO BID #60 tablet 02/27/17 [Rx] Magnesium Oxide [Mag-Ox] 400 mg PO TID #90 tab 02/27/17 [Rx] Spironolactone [Aldactone] 100 mg PO BID #60 tab 02/27/17 [Rx] Follow up Appointment(s)/Referral(s): Lenora Tan MD [Primary Care Provider] - 1-2 days Ambulatory/Diagnostic Orders: Complete Blood Count w/diff [LAB.AMB] Time Frame: 1 Week, Location: Determined By Patient Comprehensive Metabolic Panel [LAB.AMB] Location: Determined By Patient Patient Instructions/Handouts: How to Stop Smoking (GEN), Ascites (GEN) Discharge Disposition: HOME SELF-CARE
== END 2017-02-27 16:55 | disposition home or self-care (01) | DRG 433 ==
LOC: EC 10:31 → 6SEL 15:38
PROVIDERS: ADMIT Internal Medicine; ATTEND Internal Medicine
DX: K70.11 Alcoholic hepatitis with ascites (principal); D61.818 Other pancytopenia; D50.9 Iron deficiency anemia, unspecified; I10 Essential (primary) hypertension; J44.9 Chronic obstructive pulmonary disease, unspecified; F10.10 Alcohol abuse, uncomplicated; E03.9 Hypothyroidism, unspecified; E78.5 Hyperlipidemia, unspecified; F31.9 Bipolar disorder, unspecified; R60.0 Localized edema; R25.2 Cramp and spasm; R21 Rash and other nonspecific skin eruption; F17.200 Nicotine dependence, unspecified, uncomplicated; Z88.0 Allergy status to penicillin; Z79.899 Other long term (current) drug therapy; Z86.73 Personal history of transient ischemic attack (TIA), and cerebral infarction without residual deficits; Z71.3 Dietary counseling and surveillance; Z91.19 Patient's noncompliance with other medical treatment and regimen; Z90.5 Acquired absence of kidney; Z79.84 Long term (current) use of oral hypoglycemic drugs
CPT/HCPCS: 36415; 71020; 71275; 80053; 80074; 82150; 82550; 82553; 83036; 83605; 83690; 83735; 83880; 84484; 85025; 85379; 85610; 85730; 87040; 93005; 99285

== ENCOUNTER → 2017-03-18 | Outpatient (CLI) | payer OTHER ==
[2017-03-18 11:19] LABS: ALT 24 U/L (21-72); AST 58 U/L (17-59); Alkaline Phosphatase 171 U/L (38-126); Anion Gap 9 mmol/L; Blood Urea Nitrogen 14 mg/dL (9-20); Calcium 8.9 mg/dL (8.4-10.2); Carbon Dioxide 24 mmol/L (22-30); Chloride 104 mmol/L (98-107); Cholesterol 180 mg/dL (<200); Glucose 94 mg/dL (74-99); HDL Cholesterol 41 mg/dL (40-60); Non-African American GFR(MDRD) >60 (>60 ml/min/1.73 sqM); Potassium 3.9 mmol/L (3.5-5.1); Sodium 137 mmol/L (137-145); Total Bilirubin 2.2 mg/dL (0.2-1.3); Total Protein 8.9 g/dL (6.3-8.2); Triglycerides 131 mg/dL (<150)
== END | disposition home or self-care (01) ==
LOC: LABWHC1 10:29
PROVIDERS: ATTEND Physician Assistant Medical
DX: E11.9 Type 2 diabetes mellitus without complications (principal); I10 Essential (primary) hypertension; E78.5 Hyperlipidemia, unspecified; R18.8 Other ascites; Z79.899 Other long term (current) drug therapy
CPT/HCPCS: 36415; 80053; 80061; 84436; 84443

== ENCOUNTER 2017-04-05 13:46 | Inpatient (IN) | payer OTHER ==
[2017-04-05] MEDS ORDERED: SODIUM CHLORIDE 0.9% 500 ML IV ONE (14:09)
[2017-04-05] MEDS ORDERED: SODIUM CHLORIDE 0.9% 1,000 ML with MVI, ADULT NO.4 WITH VIT K 10 ML, THIAMINE 100 MG, F... IV ONE ×4 (14:15)
--- NOTE | 2017-04-05 14:15 | ED ---
General Adult HPI - General Chief complaint: GI Bleed Stated complaint: Diabetic Seizure Time Seen by Provider: 04/05/17 13:55 Source: EMS, RN notes reviewed Mode of arrival: EMS Limitations: altered mental status - History of Present Illness Initial comments: This is a 56-year-old male who presents emergency Department by EMS. Per EMS the call came in for someone who was altered mentally and because the patient had a distended abdomen. There was some mention of a possible GI bleed. We are not sure why that was brought up. Patient is unable to give us any history he is only alert and oriented times one. Patient does not complain of any pain currently he denies headache denies chest pain denies abdominal pain. Aside from that there is no further history that's available no family member is with him and that is all the information EMS gave us. - Related Data Home Medications Medication Instructions Recorded Confirmed Ferrous Sulfate [Iron (65 MG 325 mg PO BID 02/24/17 04/05/17 Elemental)] Mirtazapine [Remeron] 45 mg PO HS 02/24/17 04/05/17 Pravastatin Sodium [Pravachol] 40 mg PO DAILY 02/24/17 04/05/17 QUEtiapine FUMARATE [SEROquel] 400 mg PO HS 02/24/17 04/05/17 metFORMIN HCL [Glucophage] 500 mg PO BID 02/24/17 04/05/17 Furosemide [Lasix] 60 mg PO BID 04/05/17 04/05/17 Lactulose 20 gm PO DAILY 04/05/17 04/05/17 Levothyroxine Sodium [Synthroid] 175 mcg PO DAILY 04/05/17 04/05/17 Nitroglycerin Sl Tabs [Nitrostat] 0.4 mg SUBLINGUAL Q5M PRN 04/05/17 04/05/17 Sennosides [Senokot] 8.6 mg PO DAILY PRN 04/05/17 04/05/17 Spironolactone [Aldactone] 100 mg PO BID 04/05/17 04/05/17 amLODIPine [Norvasc] 10 mg PO DAILY 04/05/17 04/05/17 Previous Rx's Medication Instructions Recorded Magnesium Oxide [Mag-Ox] 400 mg PO TID #90 tab 02/27/17 Allergies Allergy/AdvReac Type Severity Reaction Status Date / Time Penicillins Allergy Unknown Verified 04/05/17 14:48 Childhood Review of Systems ROS Statement: Those systems with pertinent positive or pertinent negative responses have been documented in the HPI. ROS Other: All systems not noted in ROS Statement are negative. Past Medical History Past Medical History: COPD, CVA/TIA, Diabetes Mellitus, Hypertension, Thyroid Disorder History of Any Multi-Drug Resistant Organisms: None Reported Past Surgical History: Orthopedic Surgery Additional Past Surgical History / Comment(s): right kidney removed Past Psychological History: Depression Smoking Status: Current every day smoker Past Alcohol Use History: Heavy, Occasional Past Drug Use History: Unable to Obtain General Exam - General Exam Comments Initial Comments: GENERAL: Patient is well-developed and well-nourished. Patient is nontoxic and well- hydrated and is in no acute distress. ENT: Neck is soft and supple. No significant lymphadenopathy is noted. Oropharynx is clear. Moist mucous membranes. Neck has full range of motion without eliciting any pain. EYES: The sclera were anicteric and conjunctiva were pink and moist. Extraocular movements were intact and pupils were equal round and reactive to light. Eyelids were unremarkable. PULMONARY: Unlabored respirations. Good breath sounds bilaterally. No audible rales rhonchi or wheezing was noted. CARDIOVASCULAR: There is a regular rate and rhythm without any murmurs gallops or rubs. ABDOMEN: Patient has a distended abdomen. No palpable organomegaly was noted. There is no palpable pulsatile mass. SKIN: Skin is clear with no lesions or rashes and otherwise unremarkable. NEUROLOGIC: Patient is alert and oriented 1. Cranial nerves II through XII are grossly intact. Motor and sensory are also intact. Normal speech, volume and content. Symmetrical smile. MUSCULOSKELETAL: Normal extremities with adequate strength and full range of motion. No lower extremity swelling or edema. No calf tenderness. LYMPHATICS: No significant lymphadenopathy is noted PSYCHIATRIC: Normal psychiatric evaluation. Limitations: altered mental status Course Vital Signs 04/05/17 04/05/17 04/05/17 13:55 14:04 15:04 Temperature 98.1 F Pulse Rate 105 H 106 H 104 H Respiratory 20 20 20 Rate Blood Pressure 115/78 132/75 131/69 O2 Sat by Pulse 100 100 10 L Oximetry 04/05/17 16:04 Temperature Pulse Rate 98 Respiratory 20 Rate Blood Pressure 126/60 O2 Sat by Pulse 100 Oximetry Medical Decision Making - Medical Decision Making EKG shows a sinus tachycardia at 108 bpm WI interval is 120 QRS is 82 QT interval 388 QTC is 519 per patient's EKG shows no ST segment elevation or depression or T wave abnormalities are noted. CT of the brain shows no acute abnormality. Chest x-ray shows no acute abnormality. Patient's ammonia level is elevated I believe the patient has hepatic encephalopathy says started patient on Lasix. I 'm also repeat CBCs to see if the patient's hemoglobin continues to drop as it has since beginning of the year. Spoke with Dr. Forbes agreed to admit the patient admitted the patient and I wrote admitting orders I continue lactulose on the floor as well as followed the CBCs in the emergency department. - Lab Data Result diagrams: 04/05/17 14:00 04/05/17 14:00 Lab Results 04/05/17 04/05/17 04/05/17 Range/Units 14:00 14:00 14:00 WBC (3.8-10.6) k/uL RBC (4.30-5.90) m/uL Hgb (13.0-17.5) gm/dL Hct (39.0-53.0) % MCV (80.0-100.0) fL MCH (25.0-35.0) pg MCHC (31.0-37.0) g/dL RDW (11.5-15.5) % Plt Count (150-450) k/uL Neutrophils % % Lymphocytes % % Monocytes % % Eosinophils % % Basophils % % Neutrophils # (1.3-7.7) k/uL Lymphocytes # (1.0-4.8) k/uL Monocytes # (0-1.0) k/uL Eosinophils # (0-0.7) k/uL Basophils # (0-0.2) k/uL Anisocytosis Macrocytosis PT (9.0-12.0) sec INR (<1.1) APTT (22.0-30.0) sec Sodium 137 (137-145) mmol/L Potassium 4.8 (3.5-5.1) mmol/L Chloride 108 H (98-107) mmol/L Carbon Dioxide 22 (22-30) mmol/L Anion Gap 7 mmol/L BUN 37 H (9-20) mg/dL Creatinine 0.76 (0.66-1.25) mg/dL Est GFR (MDRD) Af Amer >60 (>60 ml/min/1.73 sqM) Est GFR (MDRD) Non-Af >60 (>60 ml/min/1.73 sqM) Glucose 119 H (74-99) mg/dL POC Glucose (mg/dL) (75-99) mg/dL POC Glu Vision Therapist ID Calcium 8.9 (8.4-10.2) mg/dL Total Bilirubin 1.5 H (0.2-1.3) mg/dL AST 59 (17-59) U/L ALT 36 (21-72) U/L Alkaline Phosphatase 107 (38-126) U/L Ammonia 57 H (<30) umol/L Total Creatine Kinase 29 L (55-170) U/L CK-MB (CK-2) 0.6 (0.0-2.4) ng/mL CK-MB (CK-2) Rel Index 2.1 Troponin I <0.012 (0.000-0.034) ng/mL Total Protein 7.3 (6.3-8.2) g/dL Albumin 2.9 L (3.5-5.0) g/dL Urine Color Urine Appearance (Clear) Urine pH (5.0-8.0) Ur Specific [place] (1.001-1.035) Urine Protein (Negative) Urine Glucose (UA) (Negative) Urine Ketones (Negative) Urine Blood (Negative) Urine Nitrite (Negative) Urine Bilirubin (Negative) Urine Urobilinogen (<2.0) mg/dL Ur Leukocyte Esterase (Negative) Urine Opiates Screen (NotDetected) Ur Oxycodone Screen (NotDetected) Urine Methadone Screen (NotDetected) Ur Propoxyphene Screen (NotDetected) Ur Barbiturates Screen (NotDetected) U Tricyclic Antidepress (NotDetected) Ur Phencyclidine Scrn (NotDetected) Ur Amphetamines Screen (NotDetected) U Methamphetamines Scrn (NotDetected) U Benzodiazepines Scrn (NotDetected) Urine Cocaine Screen (NotDetected) U Marijuana (THC) Screen (NotDetected) Serum Alcohol <10 mg/dL 04/05/17 04/05/17 04/05/17 Range/Units 14:00 14:00 14:16 WBC 16.2 H (3.8-10.6) k/uL RBC 2.66 L (4.30-5.90) m/uL Hgb 8.0 L (13.0-17.5) gm/dL Hct 25.1 L (39.0-53.0) % MCV 94.4 (80.0-100.0) fL MCH 30.2 (25.0-35.0) pg MCHC 32.0 (31.0-37.0) g/dL RDW 21.1 H (11.5-15.5) % Plt Count 237 D (150-450) k/uL Neutrophils % 77 % Lymphocytes % 14 % Monocytes % 6 % Eosinophils % 0 % Basophils % 1 % Neutrophils # 12.4 H (1.3-7.7) k/uL Lymphocytes # 2.2 (1.0-4.8) k/uL Monocytes # 0.9 (0-1.0) k/uL Eosinophils # 0.1 (0-0.7) k/uL Basophils # 0.1 (0-0.2) k/uL Anisocytosis Moderate Macrocytosis Slight PT 15.6 H (9.0-12.0) sec INR 1.6 (<1.1) APTT 25.5 (22.0-30.0) sec Sodium (137-145) mmol/L Potassium (3.5-5.1) mmol/L Chloride (98-107) mmol/L Carbon Dioxide (22-30) mmol/L Anion Gap mmol/L BUN (9-20) mg/dL Creatinine (0.66-1.25) mg/dL Est GFR (MDRD) Af Amer (>60 ml/min/1.73 sqM) Est GFR (MDRD) Non-Af (>60 ml/min/1.73 sqM) Glucose (74-99) mg/dL POC Glucose (mg/dL) 118 H (75-99) mg/dL POC Glu Vision Therapist ID Gregoria Inman Calcium (8.4-10.2) mg/dL Total Bilirubin (0.2-1.3) mg/dL AST (17-59) U/L ALT (21-72) U/L Alkaline Phosphatase (38-126) U/L Ammonia (<30) umol/L Total Creatine Kinase (55-170) U/L CK-MB (CK-2) (0.0-2.4) ng/mL CK-MB (CK-2) Rel Index Troponin I (0.000-0.034) ng/mL Total Protein (6.3-8.2) g/dL Albumin (3.5-5.0) g/dL Urine Color Urine Appearance (Clear) Urine pH (5.0-8.0) Ur Specific [place] (1.001-1.035) Urine Protein (Negative) Urine Glucose (UA) (Negative) Urine Ketones (Negative) Urine Blood (Negative) Urine Nitrite (Negative) Urine Bilirubin (Negative) Urine Urobilinogen (<2.0) mg/dL Ur Leukocyte Esterase (Negative) Urine Opiates Screen (NotDetected) Ur Oxycodone Screen (NotDetected) Urine Methadone Screen (NotDetected) Ur Propoxyphene Screen (NotDetected) Ur Barbiturates Screen (NotDetected) U Tricyclic Antidepress (NotDetected) Ur Phencyclidine Scrn (NotDetected) Ur Amphetamines Screen (NotDetected) U Methamphetamines Scrn (NotDetected) U Benzodiazepines Scrn (NotDetected) Urine Cocaine Screen (NotDetected) U Marijuana (THC) Screen (NotDetected) Serum Alcohol mg/dL 04/05/17 04/05/17 Range/Units 15:18 15:18 WBC (3.8-10.6) k/uL RBC (4.30-5.90) m/uL Hgb (13.0-17.5) gm/dL Hct (39.0-53.0) % MCV (80.0-100.0) fL MCH (25.0-35.0) pg MCHC (31.0-37.0) g/dL RDW (11.5-15.5) % Plt Count (150-450) k/uL Neutrophils % % Lymphocytes % % Monocytes % % Eosinophils % % Basophils % % Neutrophils # (1.3-7.7) k/uL Lymphocytes # (1.0-4.8) k/uL Monocytes # (0-1.0) k/uL Eosinophils # (0-0.7) k/uL Basophils # (0-0.2) k/uL Anisocytosis Macrocytosis PT (9.0-12.0) sec INR (<1.1) APTT (22.0-30.0) sec Sodium (137-145) mmol/L Potassium (3.5-5.1) mmol/L Chloride (98-107) mmol/L Carbon Dioxide (22-30) mmol/L Anion Gap mmol/L BUN (9-20) mg/dL Creatinine (0.66-1.25) mg/dL Est GFR (MDRD) Af Amer (>60 ml/min/1.73 sqM) Est GFR (MDRD) Non-Af (>60 ml/min/1.73 sqM) Glucose (74-99) mg/dL POC Glucose (mg/dL) (75-99) mg/dL POC Glu Vision Therapist ID Calcium (8.4-10.2) mg/dL Total Bilirubin (0.2-1.3) mg/dL AST (17-59) U/L ALT (21-72) U/L Alkaline Phosphatase (38-126) U/L Ammonia (<30) umol/L Total Creatine Kinase (55-170) U/L CK-MB (CK-2) (0.0-2.4) ng/mL CK-MB (CK-2) Rel Index Troponin I (0.000-0.034) ng/mL Total Protein (6.3-8.2) g/dL Albumin (3.5-5.0) g/dL Urine Color Yellow Urine Appearance Clear (Clear) Urine pH 6.0 (5.0-8.0) Ur Specific [place] 1.013 (1.001-1.035) Urine Protein Negative (Negative) Urine Glucose (UA) Negative (Negative) Urine Ketones Negative (Negative) Urine Blood Negative (Negative) Urine Nitrite Negative (Negative) Urine Bilirubin Negative (Negative) Urine Urobilinogen 3.0 (<2.0) mg/dL Ur Leukocyte Esterase Negative (Negative) Urine Opiates Screen Not Detected (NotDetected) Ur Oxycodone Screen Not Detected (NotDetected) Urine Methadone Screen Not Detected (NotDetected) Ur Propoxyphene Screen Not Detected (NotDetected) Ur Barbiturates Screen Not Detected (NotDetected) U Tricyclic Antidepress Not Detected (NotDetected) Ur Phencyclidine Scrn Not Detected (NotDetected) Ur Amphetamines Screen Not Detected (NotDetected) U Methamphetamines Scrn Not Detected (NotDetected) U Benzodiazepines Scrn Not Detected (NotDetected) Urine Cocaine Screen Not Detected (NotDetected) U Marijuana (THC) Screen Not Detected (NotDetected) Serum Alcohol mg/dL Disposition Clinical Impression: Hepatic encephalopathy, Anemia, Dehydration Disposition: ADMITTED IP TO THIS [facility] Time of Disposition: 16:41
[2017-04-05 14:19] LABS: Glucose,Whole Blood 118 mg/dL (75-99)
[2017-04-05 14:27] LABS: Anisocytosis Moderate; Basophils # (A) 0.1 k/uL (0-0.2); Basophils % (A) 1 %; CH 30.1; CHCM 31.9; Eosinophils # (A) 0.1 k/uL (0-0.7); Eosinophils % (A) 0 %; HCT 25.1 % (39.0-53.0); HDW 2.59; Luc # (Auto) 0.53; Luc % (Auto) 3; Lymphocytes # (A) 2.2 k/uL (1.0-4.8); Lymphocytes % (A) 14 %; MCH 30.2 pg (25.0-35.0); MCV 94.4 fL (80.0-100.0); Macrocytosis Slight; Mean Platelet Volume 7.7; Monocytes # (A) 0.9 k/uL (0-1.0); Monocytes % (A) 6 %; Neutrophils # (A) 12.4 k/uL (1.3-7.7); Neutrophils % (A) 77 %; RBC 2.66 m/uL (4.30-5.90); RDW 21.1 % (11.5-15.5); WBC 16.2 k/uL (3.8-10.6)
[2017-04-05 14:39] LABS: ALT 36 U/L (21-72); AST 59 U/L (17-59); Alcohol <10 mg/dL; Alkaline Phosphatase 107 U/L (38-126); Anion Gap 7 mmol/L; Blood Urea Nitrogen 37 mg/dL (9-20); Calcium 8.9 mg/dL (8.4-10.2); Carbon Dioxide 22 mmol/L (22-30); Chloride 108 mmol/L (98-107); Glucose 119 mg/dL (74-99); Non-African American GFR(MDRD) >60 (>60 ml/min/1.73 sqM); Potassium 4.8 mmol/L (3.5-5.1); Sodium 137 mmol/L (137-145); Total Bilirubin 1.5 mg/dL (0.2-1.3); Total Protein 7.3 g/dL (6.3-8.2)
--- NOTE | 2017-04-05 14:42 | CT ---
EXAMINATION TYPE: CT brain wo con DATE OF EXAM: 04/05/2017 2:30 PM COMPARISON: NONE HISTORY: Patient poor historian. Patient shows signs of altered mental status. Patient possible sari betic seizure. CT DLP: 888.2 mGycm Automated exposure control for dose reduction was used. FINDINGS: There is no acute intracranial hemorrhage, mass effect, or midline shift identified. The ventricles and sulci are within normal limits in size. Cerebral vascular calcifications are present. There is a ge-related atrophy suspected. Periventricular white matter shows patchy low attenuation. The globes a re intact and the visualized sinuses are clear. IMPRESSION: No acute intracranial hemorrhage, mass effect, or midline shift is seen. Suspect some age-related atr ophy and chronic small vessel ischemia.
[2017-04-05 14:43] LABS: INR 1.6 (<1.1); Partial Thromboplastin Time 25.5 sec (22.0-30.0); Prothrombin Time 15.6 sec (9.0-12.0)
--- NOTE | 2017-04-05 14:44 | XR ---
EXAMINATION TYPE: XR chest 2V DATE OF EXAM: 04/05/2017 2:38 PM COMPARISON: Prior chest x-ray 24 February 2017 HISTORY: Altered mental status TECHNIQUE: Frontal and lateral views of the chest are obtained. FINDINGS: There is no focal air space opacity, pleural effusion, or pneumothorax seen. The cardiac silhouette size is within normal limits. There are overlying cardiac leads. Patient is rotated. The osseous structures are intact. IMPRESSION: No acute cardiopulmonary process.
[2017-04-05 14:47] LABS: Creatine Kinase 29 U/L (55-170)
[2017-04-05 14:58] LABS: Creatine Kinase MB 0.6 ng/mL (0.0-2.4); Troponin I <0.012 ng/mL (0.000-0.034)
[2017-04-05 15:28] LABS: Appearance,Urine Clear (Clear); Bilirubin,Urine Negative (Negative); Glucose,Urine (UA) Negative (Negative); Ketones,Urine Negative (Negative); Leukocyte Esterase,Urine Negative (Negative); Nitrite,Urine Negative (Negative); Protein,Urine Negative (Negative); Specific Gravity,Urine 1.013 (1.001-1.035); UA Billing (MACRO vs. MICRO) CHEM
[2017-04-05] MEDS ORDERED: LACTULOSE 20 GM/30 ML CUP PO ONE (16:09)
[2017-04-05] MEDS ORDERED: SODIUM CHLORIDE 0.9% 1,000 ML IV ONE (16:41)
[2017-04-05 19:49] VITALS: BMI 25.1
[2017-04-05] MEDS: QUEtiapine 400 MG TAB PO SCH (22:15)
[2017-04-05] MEDS: SPIRONOLACTONE 25 MG TAB PO SCH (22:15)
[2017-04-05] MEDS: MAGNESIUM OXIDE 400 MG TAB PO SCH (22:15)
[2017-04-05] MEDS: FUROSEMIDE 20 MG TAB PO SCH (22:15)
[2017-04-05] MEDS: MIRTAZAPINE 45 MG TABLET PO SCH (22:15)
[2017-04-05] MEDS: metFORMIN 500 MG TAB PO SCH (22:15)
[2017-04-05] MEDS: LACTULOSE 20 GM/30 ML CUP PO SCH (22:16)
[2017-04-05 22:18] LABS: Glucose,Whole Blood 130 mg/dL (75-99)
[2017-04-06] MEDS: LEVOTHYROXINE 75 MCG TAB PO SCH (05:58)
[2017-04-06] MEDS: LEVOTHYROXINE 100 MCG TAB PO SCH (05:58)
[2017-04-06 07:14] LABS: Glucose,Whole Blood 143 mg/dL (75-99)
[2017-04-06] MEDS: SPIRONOLACTONE 25 MG TAB PO SCH ×2 (09:56→21:00)
[2017-04-06] MEDS: FUROSEMIDE 20 MG TAB PO SCH ×2 (09:57→16:52)
[2017-04-06] MEDS: MAGNESIUM OXIDE 400 MG TAB PO SCH ×3 (09:57→21:00)
[2017-04-06] MEDS: FERROUS SULFATE 325 MG TAB PO SCH ×2 (09:58→20:59)
[2017-04-06] MEDS: metFORMIN 500 MG TAB PO SCH ×2 (09:58→20:59)
[2017-04-06] MEDS: amLODIPine 10 MG TAB PO SCH (09:58)
[2017-04-06 11:13] LABS: Glucose,Whole Blood 138 mg/dL (75-99)
[2017-04-06] MEDS: LACTULOSE 20 GM/30 ML CUP PO SCH ×4 (11:37→21:00)
[2017-04-06] MEDS ORDERED: SENNOSIDES 8.6 MG TAB PO PRN (13:44)
[2017-04-06] MEDS ORDERED: NITROGLYCERIN SL TABS 0.4 MG TAB SUBLINGUAL PRN (13:44)
--- NOTE | 2017-04-06 14:16 | P.CONS ---
History of Present Illness - Reason for Consult Consult date: 04/06/17 Hepatic encephalopathy Requesting physician: Darvin Camargo - History of Present Illness 56-year-old gentleman with a history of long-standing EtOH abuse, bipolar depression, CVA, COPD, diabetes mellitus, hypertension, and hypothyroidism. Patient admitted with mental status changes and elevated ammonia level 57. Recently hospitalized a month ago for acute alcohol hepatitis. Home medications include Aldactone, lactulose, and Lasix. He drinks alcohol when he can afford it. No history of paracentesis. Hemoglobin 8.0. MCV 94. White count 16.2. INR 1.6. Bilirubin 1.5. AST 59. ALT 36. Alkaline phosphates 107. No history of intravenous drug abuse or hepatitis. Hepatitis screen negative. Review of Systems Constitutional: Denies fever, chills, sweats, weight gain, or loss. HEENT: Negative for migraines, blurred vision or loss, earaches, drainage, tinnitus, oral mucosal lesions, dysphagia, or odynophagia. Cardiac: Nicotine cigarette dependency. Hypertension. Negative for chest pain , arrhythmias, or palpitation. Respiratory: COPD. Negative for shortness of breath, hemoptysis, cough, or sputum production. Gastrointestinal: See HPI for pertinent findings. Genitourinary: Negative for hematuria, urgency, frequency, polyuria, dysuria, or penile discharge. Musculoskeletal: Negative for muscle aches, swelling, arthritis, and arthralgias. Neurologic: History of CVA/TIA. Endocrine: Hypothyroidism problems. Diabetes mellitus. Skin: Negative for rash or itching. Psychiatric: History of bipolar depression. All systems: negative (See HPI) Past Medical History Past Medical History: COPD, CVA/TIA, Diabetes Mellitus, Hypertension, Thyroid Disorder History of Any Multi-Drug Resistant Organisms: None Reported Past Surgical History: Orthopedic Surgery Additional Past Surgical History / Comment(s): right kidney removed. kristina knee surgery. kidney stent for stones Past Psychological History: Bipolar, Depression Smoking Status: Current every day smoker Past Alcohol Use History: Heavy, Occasional Additional Past Alcohol Use History / Comment(s): has not drank in the past month Past Drug Use History: Unable to Obtain - Past Family History Mother Additional Family Medical History / Comment(s): skin cancer Medications and Allergies Home Medications Medication Instructions Recorded Confirmed Type Ferrous Sulfate [Iron (65 MG 325 mg PO BID 02/24/17 04/05/17 History Elemental)] Mirtazapine [Remeron] 45 mg PO HS 02/24/17 04/05/17 History Pravastatin Sodium [Pravachol] 40 mg PO DAILY 02/24/17 04/05/17 History QUEtiapine FUMARATE [SEROquel] 400 mg PO HS 02/24/17 04/05/17 History metFORMIN HCL [Glucophage] 500 mg PO BID 02/24/17 04/05/17 History Furosemide [Lasix] 60 mg PO BID 04/05/17 04/05/17 History Lactulose 20 gm PO DAILY 04/05/17 04/05/17 History Levothyroxine Sodium [Synthroid] 175 mcg PO DAILY 04/05/17 04/05/17 History Nitroglycerin Sl Tabs [Nitrostat] 0.4 mg SUBLINGUAL Q5M PRN 04/05/17 04/05/17 History Sennosides [Senokot] 8.6 mg PO DAILY PRN 04/05/17 04/05/17 History Spironolactone [Aldactone] 100 mg PO BID 04/05/17 04/05/17 History amLODIPine [Norvasc] 10 mg PO DAILY 04/05/17 04/05/17 History Allergies Allergy/AdvReac Type Severity Reaction Status Date / Time Penicillins Allergy Unknown Verified 04/05/17 14:48 Childhood Physical Exam Vitals: Vital Signs Temp Pulse Pulse Resp BP BP Pulse Ox 04/06/17 08:00 100 20 04/06/17 07:00 98.4 F 100 20 112/48 97 04/06/17 00:00 107 H 16 04/05/17 23:00 98.7 F 107 H 16 133/60 98 04/05/17 18:02 98 F 106 H 20 137/67 99 04/05/17 17:30 99.1 F 105 H 20 151/70 100 Intake and Output 04/05/17 04/06/17 04/06/17 22:59 06:59 14:59 Output Total 500 Balance -500 Output: Urine 500 Other: Voiding Method Diaper Diaper Incontinent Incontinent # Voids 3 Weight 81.647 kg General appearance: The patient is alert, oriented, in no acute distress. HET: Head is normocephalic and atraumatic. Pupils are equal and reactive. Oropharynx is clear without lesions. Neck: Supple without lymphadenopathy. Trachea midline. Heart: S1 S2. Regular rate and rhythm. Lungs: No crackles or wheezes are heard. Abdomen: Soft, nontender, bloated no appreciable ascites with bowel sounds. No peritoneal signs. No palpable organomegaly or masses. Extremities: Normal skin color and turgor. No cyanosis, rash, ulceration, clubbing, or edema. Radial and pedal pulses are 2/4 bilaterally. Neurological: No focal deficits. Strength and sensation are grossly intact. Results CBC & Chem 7: 04/05/17 14:00 04/05/17 14:00 Labs: Abnormal Lab Results - Last 24 Hours (Table) 04/05/17 04/06/17 04/06/17 Range/Units 22:17 07:03 11:03 POC Glucose (mg/dL) 130 H 143 H 138 H (75-99) mg/dL Ammonia (<30) umol/L 04/06/17 Range/Units 11:50 POC Glucose (mg/dL) (75-99) mg/dL Ammonia 55 H (<30) umol/L Assessment and Plan (1) Hepatic encephalopathy Status: Acute (2) Chronic liver disease Narrative/Plan: possible cirrhosis Status: Acute (3) ETOH abuse Status: Acute (4) Anemia Narrative/Plan: acute suspect chronic from ETOH abuse. No overt GI bleeding. Status: Acute Plan: 1. Continue with iron twice daily. 2. Folic acid daily. 3. Lactulose 30 g 4 times a day; 3-4 bowel movements daily. 4. Will obtain alpha-fetoprotein marker and ultrasound of the abdomen. 5. Alcohol abstinence strongly advised. 6. Protonix 40 mg daily. Thank you for this kind referral and the opportunity to participate in the care of your patient. This consultation was discussed with Dr. Arzola. The impression and plan of care have been directed as dictated.
[2017-04-06] MEDS ORDERED: LEVOFLOXACIN 500MG-D5W PMX 500 MG in DEXTROSE/WATER 1 100ML.BAG IVPB SCH (15:00)
--- NOTE | 2017-04-06 16:43 | HP ---
DATE OF ADMISSION: CHIEF COMPLAINT: Change in mental status. HISTORY OF PRESENT ILLNESS: This 56-year-old gentleman with past history of chronic obstructive pulmonary disease, history of diabetes, hypertension, hypothyroidism, history of bipolar depression, history of possible alcoholic hepatitis and possible cirrhosis of the liver was admitted to [facility] with complaints of change in mental status. Patient apparently drinks too much according to him. The patient's ammonia was found to be high. was suspected. The patient was admitted for further evaluation and treatment. There is no history of fever, rigors or chills. No history of headache, loss of consciousness or seizures. The patient is able to give a more coherent history at this time even though patient still has some change in mental status. Hepatic flapping tremors also seen. Hemoglobin was 8 and concern of GI bleed also. No active GI bleed after admission. Baseline CAT scan and chest x-ray were done, which did not show any acute abnormality. There is no history of fevers, rigors, headache, loss of consciousness or seizures. Hematoma of the right elbow present. PAST MEDICAL HISTORY: History of COPD, history of cerebrovascular accident, transient ischemic attack, history of diabetes mellitus type 2, hypertension, history of hypothyroidism, history of degenerative joint disease, history of knee surgery, kidney stones, bipolar depression. Medications prior to admission include home medications: 1. Nitro 0.4 sublingual p.r.n. 2. Synthroid 175 mcg p.o. daily. 3. Norvasc 10 mg p.o. daily. 4. Pravachol 40 mg daily. 5. Iron 325 mg p.o. b.i.d. 6. Aldactone 100 mg p.o. b.i.d. 7. Magnesium oxide 400 mg p.o. t.i.d. 8. Glucophage 500 mg p.o. b.i.d. 9. Remeron 45 mg q.h.s. 11. Seroquel 400 mg p.o. q.h.s. 12. Lactulose 20 grams p.o. daily. 13. Senokot 8.6 p.o. daily p.r.n. ALLERGIES: PENICILLIN. FAMILY HISTORY: History of skin cancer in the family. SOCIAL HISTORY: History of smoking on a daily basis. history of alcohol. REVIEW OF SYSTEMS: ENT: No diminished hearing or diminished vision. CARDIOVASCULAR: No angina. RESPIRATORY: As mentioned earlier. GI: No nausea. : No dysuria. NERVOUS SYSTEM: NO numbness or weakness. ALLERGY/IMMUNOLOGY: No asthma or hayfever. MUSCULOSKELETAL: As mentioned earlier. HEMATOLOGY/ONCOLOGY: No history of anemia. ENDOCRINE: History of diabetes mellitus and hypothyroidism. CONSTITUTIONAL: As mentioned earlier. DERMATOLOGY: Negative. RHEUMATOLOGY: Negative. PSYCHIATRY: As mentioned earlier. PHYSICAL EXAMINATION: Patient is alert and oriented x2. Pulse is 100, blood pressure 112/42, respirations 20, temperature 98.4. Pulse ox is 97% on room air. HEENT: Conjunctivae normal. Oral mucosa moist. CARDIOVASCULAR: S1 and S2, muffled. No S3, no S4. RESPIRATORY: Breath sounds diminished at the bases. No rhonchi, no crackles. ABDOMEN: Soft. Diffuse distention present. No mass palpable. Flanks are minimal also present. LEGS: No edema, no swelling. NERVOUS SYSTEM: Higher function as mentioned. Moves all four limbs. No focal motor sensory deficits. Gait not tested. Hepatic flap present. SKIN: No ulcer, rash or bleeding. LYMPHATIC: No lymphadenopathy in the neck, axillae or groin. JOINTS: No active arthropathy. LABS: At this time shows WBC 16.2, hemoglobin 8. INR is 1.6. Glucose 130. Chloride is 108. Ammonia is 57 and 55. ASSESSMENT: 1. Change in mental status and acute metabolic encephalopathy with hepatic encephalopathy secondary to hyperammonemia and chronic liver disease secondary to alcohol. 2. Alcoholic liver disease and chronic liver disease. 3. Increased WBC. 4. Anemia, normocytic. 5. Hematoma of the right elbow. 6. Coagulopathy secondary to chronic liver disease. 7. Increased random blood sugar. 8. Hyperbilirubinemia. 9. Hypoalbuminemia with mild to moderate protein calorie malnutrition. 10. History of cerebrovascular accident, transient ischemic attack. 11. History of chronic obstructive pulmonary disease. 12. Diabetes type 2. 13. Hypertension. 14. Hypothyroidism. 15. History of right kidney surgery. 16. Bilateral knee surgery. 17. Bipolar depression, not otherwise specified. 18. History of nicotine dependence. 19. FULL CODE. RECOMMENDATIONS AND DISCUSSION: This 56-year-old gentleman who presented with multiple complex medical issues, will monitor the patient closely. Continue the current management and continue with the symptomatic treatment. Will initiate broad-spectrum IV antibiotics as well. Obtain the cultures. Continue the rest of the medications and lactulose. Monitor blood sugars closely. Otherwise, guarded prognosis because of multiple complex medical issues. Further recommendations to follow. See orders for details. Copy of dictation forwarded to Dr. Tan who is the primary physician. Also obtain gastroenterology evaluation also. FATOU
[2017-04-06 17:07] LABS: Glucose,Whole Blood 122 mg/dL (75-99)
[2017-04-06 19:59] LABS: Glucose,Whole Blood 136 mg/dL (75-99)
[2017-04-06] MEDS: PRAVASTATIN SODIUM 40 MG TAB PO SCH (20:59)
[2017-04-06] MEDS: QUEtiapine 400 MG TAB PO SCH (20:59)
[2017-04-06] MEDS: MIRTAZAPINE 45 MG TABLET PO SCH (20:59)
[2017-04-07] MEDS: LEVOTHYROXINE 100 MCG TAB PO SCH (05:40)
[2017-04-07] MEDS: LEVOTHYROXINE 75 MCG TAB PO SCH (05:40)
[2017-04-07 07:10] LABS: Glucose,Whole Blood 142 mg/dL (75-99)
[2017-04-07] MEDS ORDERED: PANTOPRAZOLE 40 MG TABLET PO SCH (07:30)
[2017-04-07 08:16] LABS: INR 1.7 (<1.1); Prothrombin Time 16.7 sec (9.0-12.0)
[2017-04-07 08:30] LABS: Anion Gap 6 mmol/L; Blood Urea Nitrogen 38 mg/dL (9-20); Calcium 7.9 mg/dL (8.4-10.2); Carbon Dioxide 19 mmol/L (22-30); Chloride 109 mmol/L (98-107); Glucose 109 mg/dL (74-99); Non-African American GFR(MDRD) >60 (>60 ml/min/1.73 sqM); Potassium 4.1 mmol/L (3.5-5.1); Sodium 134 mmol/L (137-145)
--- NOTE | 2017-04-07 08:31 | P.PN ---
Subjective Principal diagnosis: Chronic liver disease history of EtOH abuse hepatic encephalopathy 56-year-old male admitted with acute hepatic encephalopathy with underlying alcohol liver disease EtOH abuse. Ultrasound abdomen scheduled this morning. Ammonia level pending. No bowel movements with lactulose. Denies abdominal pain. Afebrile. Objective - Vital Signs Vital signs: Vital Signs Temp 97.9 F 04/07/17 07:00 Pulse 95 04/07/17 07:00 Resp 18 04/07/17 07:00 BP 103/50 04/07/17 07:00 Pulse Ox 99 04/07/17 07:00 Intake & Output 04/06/17 04/07/17 04/07/17 18:59 06:59 18:59 Intake Total 1815 Output Total 500 200 Balance -500 1615 Weight 81.647 kg Intake: Intake, IV Titration 225 Amount Sodium Chloride 0.9% 1, 225 000 ml @ 75 mls/hr IV . [id number] ONE Rx#:[id number] Oral 1590 Output: Urine 500 200 Other: Voiding Method Diaper Urinal Incontinent Diaper Incontinent # Voids 450 2 - Exam General appearance: The patient is alert, oriented, in no acute distress. HET: Head is normocephalic and atraumatic. Pupils are equal and reactive. Oropharynx is clear without lesions. Neck: Supple without lymphadenopathy. Trachea midline. Heart: S1 S2. Regular rate and rhythm. Lungs: No crackles or wheezes are heard. Abdomen: Soft, nontender, obese protuberant, no appreciable large amount of ascites, with bowel sounds. No peritoneal signs. No palpable organomegaly or masses. Extremities: Normal skin color and turgor. No cyanosis, rash, ulceration, clubbing, or edema. Radial and pedal pulses are 2/4 bilaterally. Neurological: No focal deficits. Strength and sensation are grossly intact. - Labs CBC & Chem 7: 04/05/17 14:00 04/05/17 14:00 Labs: Abnormal Lab Results - Last 24 Hours (Table) 04/06/17 04/06/17 04/06/17 Range/Units 11:03 11:50 17:06 PT (9.0-12.0) sec POC Glucose (mg/dL) 138 H 122 H (75-99) mg/dL Ammonia 55 H (<30) umol/L 04/06/17 04/07/1704/07/17 Range/Units 19:58 07:08 07:37 PT 16.7 H (9.0-12.0) sec POC Glucose (mg/dL) 136 H 142 H (75-99) mg/dL Ammonia (<30) umol/L Microbiology - Last 24 Hours (Table) 04/06/17 15:35 Urine Culture - Preliminary Urine,Voided Assessment and Plan (1) Hepatic encephalopathy Status: Acute (2) Chronic liver disease Narrative/Plan: possible cirrhosis Status: Acute (3) ETOH abuse Status: Acute (4) Anemia Narrative/Plan: acute suspect chronic from ETOH abuse. No overt GI bleeding. Status: Acute Plan: 1. Ultrasound abdomen. 2. Await morning chemistries for review. 3. Low-salt diet. 4. Discharge per medicine if ammonia level is satisfactory. Continue lactulose on discharge 3-4 times daily; titrate 3-4 bowel movements daily. Return GI office in 1-2 weeks for reevaluation. Assessment and plan of care discussed with Dr. Arzola.
[2017-04-07 08:38] LABS: Anisocytosis Moderate; Basophils % (A) 0 %; CH 31.3; CHCM 31.7; Eosinophils % (A) 0 %; HDW 2.85; Hypochromasia Slight; Luc # (Auto) 0.21; Luc % (Auto) 3; Lymphocytes % (A) 12 %; MCH 31.2 pg (25.0-35.0); MCHC 31.5 g/dL (31.0-37.0); MCV 99.1 fL (80.0-100.0); Macrocytosis Moderate; Mean Platelet Volume 8.4; Monocytes # (A) 0.6 k/uL (0-1.0); Monocytes % (A) 7 %; Neutrophils # (A) 6.3 k/uL (1.3-7.7); Neutrophils % (A) 78 %; RBC 1.76 m/uL (4.30-5.90); RDW 23.5 % (11.5-15.5); WBC 8.1 k/uL (3.8-10.6); WBC (Perox) 8.18
[2017-04-07 08:56] LABS: HGB 5.5 gm/dL (13.0-17.5)
[2017-04-07 08:57] LABS: HCT 17.4 % (39.0-53.0)
--- NOTE | 2017-04-07 09:13 | XR ---
EXAMINATION TYPE: XR elbow complete RT DATE OF EXAM: 04/07/2017 9:06 AM COMPARISON: 02/25/2017 HISTORY: 56-year-old male hematoma, swelling distal elbow, open wound. TECHNIQUE: 3 views FINDINGS: Stable small corticated ossific density just distal to the medial epicondyle. No elbow joint effusion . No acute fracture, subluxation, or dislocation. No elbow joint effusion. IMPRESSION: Some subtle bony changes could represent chronic UCL injury. No acute osseous abnormality seen.
--- NOTE | 2017-04-07 09:38 | P.CNOR ---
History of Present Illness - HPI Consult date: 04/07/17 History of present illness: This is a 56-year-old male who was admitted for hepatic encephalopathy, dehydration and anemia yesterday by the emergency department. Orthopedics was consulted due to an area of swelling to the patient's right forearm. Patient is a poor historian and is unable to recall how this happened. Patient states he noticed this area of swelling for about one month. Patient states he fell yesterday. Patient denies IV drug abuse, but patient admits to being an alcoholic. Patient denies any numbness, tingling, or weakness in the right upper extremity. Review of Systems See HPI. Past Medical History Past Medical History: COPD, CVA/TIA, Diabetes Mellitus, Hypertension, Thyroid Disorder History of Any Multi-Drug Resistant Organisms: None Reported Past Surgical History: Orthopedic Surgery Additional Past Surgical History / Comment(s): right kidney removed. kristina knee surgery. kidney stent for stones Past Psychological History: Bipolar, Depression Smoking Status: Current every day smoker Past Alcohol Use History: Heavy, Occasional Additional Past Alcohol Use History / Comment(s): has not drank in the past month Past Drug Use History: Unable to Obtain - Past Family History Mother Additional Family Medical History / Comment(s): skin cancer Medications and Allergies Home Medications Medication Instructions Recorded Confirmed Type Ferrous Sulfate [Iron (65 MG 325 mg PO BID 02/24/17 04/05/17 History Elemental)] Mirtazapine [Remeron] 45 mg PO HS 02/24/17 04/05/17 History Pravastatin Sodium [Pravachol] 40 mg PO DAILY 02/24/17 04/05/17 History QUEtiapine FUMARATE [SEROquel] 400 mg PO HS 02/24/17 04/05/17 History metFORMIN HCL [Glucophage] 500 mg PO BID 02/24/17 04/05/17 History Furosemide [Lasix] 60 mg PO BID 04/05/17 04/05/17 History Lactulose 20 gm PO DAILY 04/05/17 04/05/17 History Levothyroxine Sodium [Synthroid] 175 mcg PO DAILY 04/05/17 04/05/17 History Nitroglycerin Sl Tabs [Nitrostat] 0.4 mg SUBLINGUAL Q5M PRN 04/05/17 04/05/17 History Sennosides [Senokot] 8.6 mg PO DAILY PRN 04/05/17 04/05/17 History Spironolactone [Aldactone] 100 mg PO BID 04/05/17 04/05/17 History amLODIPine [Norvasc] 10 mg PO DAILY 04/05/17 04/05/17 History Allergies Allergy/AdvReac Type Severity Reaction Status Date / Time Penicillins Allergy Unknown Verified 04/05/17 14:48 Childhood Physical Examination This is an area of erythema and swelling to the patient's proximal right forearm. The area is fluctuant and draining purulent material. The area has no apparent tenderness to palpation. Neurovascular status for the right upper extremity is intact. Results X-ray of the right forearm is done and reviewed showing: Some subtle bony changes could represent chronic ACL injury. No acute osseous abnormality seen. Reported by Dr. Clark - Labs Labs: Abnormal Lab Results - Last 24 Hours (Table) 04/06/17 04/06/17 04/06/17 Range/Units 11:03 11:50 17:06 RBC (4.30-5.90) m/uL Hgb (13.0-17.5) gm/dL Hct (39.0-53.0) % RDW (11.5-15.5) % Plt Count (150-450) k/uL PT (9.0-12.0) sec Sodium (137-145) mmol/L Chloride (98-107) mmol/L Carbon Dioxide (22-30) mmol/L BUN (9-20) mg/dL Glucose (74-99) mg/dL POC Glucose (mg/dL) 138 H 122 H (75-99) mg/dL Calcium (8.4-10.2) mg/dL Ammonia 55 H (<30) umol/L 04/06/17 04/07/17 04/07/17 Range/Units 19:58 07:08 07:37 RBC 1.76 L (4.30-5.90) m/uL Hgb 5.5 L* D (13.0-17.5) gm/dL Hct 17.4 L* (39.0-53.0) % RDW 23.5 H (11.5-15.5) % Plt Count 100 L D (150-450) k/uL PT (9.0-12.0) sec Sodium (137-145) mmol/L Chloride (98-107) mmol/L Carbon Dioxide (22-30) mmol/L BUN (9-20) mg/dL Glucose (74-99) mg/dL POC Glucose (mg/dL) 136 H 142 H (75-99) mg/dL Calcium (8.4-10.2) mg/dL Ammonia (<30) umol/L 04/07/17 04/07/17 Range/Units 07:37 07:37 RBC (4.30-5.90) m/uL Hgb (13.0-17.5) gm/dL Hct (39.0-53.0) % RDW (11.5-15.5) % Plt Count (150-450) k/uL PT 16.7 H (9.0-12.0) sec Sodium 134 L (137-145) mmol/L Chloride 109 H (98-107) mmol/L Carbon Dioxide 19 L (22-30) mmol/L BUN 38 H (9-20) mg/dL Glucose 109 H (74-99) mg/dL POC Glucose (mg/dL) (75-99) mg/dL Calcium 7.9 L (8.4-10.2) mg/dL Ammonia (<30) umol/L Microbiology - Last 24 Hours (Table) 04/06/17 15:35 Urine Culture - Preliminary Urine,Voided H & H 04/07/17 Range/Units 07:37 Hgb 5.5 L* D (13.0-17.5) gm/dL Hct 17.4 L* (39.0-53.0) % Coagulation 04/07/17 Range/Units 07:37 INR 1.7 (<1.1) Result Diagrams: 04/07/17 07:37 04/07/17 07:37 Assessment and Plan (1) Hematoma Status: Acute (2) Abscess Status: Acute Plan: Patient has been made NPO for I&D of right forearm taking place today, 2016.
[2017-04-07] MEDS ORDERED: FUROSEMIDE 10 MG/ML 2 ML VIAL IV ONE ×3 (10:12→20:00)
[2017-04-07] MEDS: SPIRONOLACTONE 25 MG TAB PO SCH ×2 (10:38→20:27)
[2017-04-07] MEDS: metFORMIN 500 MG TAB PO SCH ×2 (10:38→20:26)
[2017-04-07] MEDS: FUROSEMIDE 20 MG TAB PO SCH ×2 (10:39→15:20)
[2017-04-07 10:50] LABS: Manual Review Performed
[2017-04-07 10:51] LABS: Polychromasia Present
[2017-04-07] MEDS: MAGNESIUM OXIDE 400 MG TAB PO SCH ×3 (11:02→20:25)
[2017-04-07] MEDS: LACTULOSE 20 GM/30 ML CUP PO SCH ×4 (11:02→20:25)
[2017-04-07] MEDS: NICOTINE 14MG/24HR PATCH TRANSDERM SCH (11:02)
[2017-04-07] MEDS: PANTOPRAZOLE 40 MG/10 ML VIAL IVP SCH ×2 (11:12→20:26)
[2017-04-07] MEDS: FERROUS SULFATE 325 MG TAB PO SCH (11:23)
[2017-04-07 11:33] LABS: Glucose,Whole Blood 144 mg/dL (75-99)
[2017-04-07] MEDS ORDERED: SODIUM CHLORIDE 0.9% 500 ML IV ONE (12:16)
[2017-04-07] MEDS ORDERED: MIDAZOLAM 2 MG/2 ML VIAL ONE (12:16)
[2017-04-07] MEDS ORDERED: KETAMINE 10 MG/ML 20 ML VIAL ONE (12:16)
[2017-04-07] MEDS ORDERED: CLINDAMYCIN 600 MG in SODIUM CHLORIDE 0.9% 1,000 ML IRRIGATION ONE (12:16)
[2017-04-07] MEDS ORDERED: BUPIVACAINE (PF) 0.25% 30 ML VIAL SQ ONE (12:22)
--- NOTE | 2017-04-07 12:36 | P.OP ---
Date of Procedure: 04/07/17 Preoperative Diagnosis: Abscess right arm Postoperative Diagnosis: Abscess right arm Procedure(s) Performed: Incision and drainage of abscess of the right arm Surgeon: Marquez Pettit Canine Enforcement Officer #1: Rupa Seymour Estimated Blood Loss (ml): 5 Pathology: other (Gram stain and cultures) Condition: stable Disposition: PACU Indications for Procedure: This is a 56-year-old gentleman who is a poor historian. He has chronic hepatic encephalopathy. Apparently he injured his right arm and an indeterminate time. He has an area of swelling and drainage from his right arm , and after discussing the surgical and nonsurgical treatment options with him and his family at length, I recommended an incision and drainage of the site. Informed consent was obtained. Operative Findings: Operative findings are consistent with an abscess of the right arm Description of Procedure: Patient was seen and evaluated in the preoperative area, the operative site was marked with a skin marker. The patient was then brought to the operating room . A general anesthetic was administered by the anesthesia department. The right upper extremity was then prepped and draped in usual sterile fashion. A universal timeout was then performed confirming the patient's name, surgical site, ALLERGIES, and consent. The area was then sharply incised. A moderate amount of purulent material as well as coagulated blood expressed. This was then cultured. A knife was used to sharply excise skin, subcutanenous tissue and fascia. It was then irrigated with antibiotic solution. It was then packed open with gauze. A dressing was then applied. The administrative assistant front desk GIGI Jackson was required due the complexity of the surgery and the need for a skilled pathologist assistant. Patient was then transferred to recovery room in stable condition.
--- NOTE | 2017-04-07 13:07 | US ---
EXAMINATION TYPE: US abdomen limited DATE OF EXAM: 04/07/2017 11:25 AM COMPARISON: 09/08/2016 CLINICAL HISTORY: 56-year-old male elevated liver enzymes. Evaluated cirrhosis/ascites, history of ri ght nephrectomy. TECHNIQUE: Multiple sonographic images of the right upper quadrant are obtained. FINDINGS: Liver Length: 17.1 cm Gallbladder Wall: 3.5 mm CBD: 6.4 mm Right Kidney: Surgically absent Pancreas: Obscured by bowel gas Liver: Diffusely coarsened echotexture with nodular contour. No focal lesion is seen. Gallbladder: No abnormal gallbladder distention, pericholecystic fluid, or shadowing calculi. Gallbl adder wall measures borderline to mildly thickened, likely due to incomplete distention. Evidence for sonographic Casanova's sign: no CBD: Upper limits of normal in caliber. Right Kidney: Surgically absent The main portal vein and right portal vein branch were interrogated with color Doppler and spectral w aveform analysis. There is appropriate hepatopedal flow into the liver but with velocities of 10 cm/s or less. There is mild abdominal ascites fluid throughout the abdomen. IMPRESSION: 1. Frankly cirrhotic morphology of the liver. Abdominal ascites compatible with underlying portal zo ous hypertension. 2. There is appropriate direction of blood flow in the portal vein. However, blood flow is sluggish w hich is also in keeping with portal venous hypertension. 3. Right kidney surgically absent.
[2017-04-07] MEDS: amLODIPine 10 MG TAB PO SCH (15:14)
[2017-04-07 15:18] LABS: Anisocytosis Moderate; Basophils % (A) 0 %; CH 30.9; CHCM 33.2; Eosinophils # (A) 0.1 k/uL (0-0.7); Eosinophils % (A) 1 %; HCT 23.6 % (39.0-53.0); HDW 3.53; Luc # (Auto) 0.36; Luc % (Auto) 3; Lymphocytes # (A) 1.3 k/uL (1.0-4.8); Lymphocytes % (A) 12 %; MCH 30.7 pg (25.0-35.0); MCHC 32.7 g/dL (31.0-37.0); Macrocytosis Slight; Monocytes # (A) 0.7 k/uL (0-1.0); Monocytes % (A) 7 %; Neutrophils # (A) 8.7 k/uL (1.3-7.7); Neutrophils % (A) 78 %; Poikilocytosis Slight; RBC 2.51 m/uL (4.30-5.90); RDW 22.6 % (11.5-15.5); WBC 11.2 k/uL (3.8-10.6); WBC (Perox) 11.05
[2017-04-07] MEDS: THIAMINE 100 MG TAB PO SCH (15:20)
[2017-04-07] MEDS: SODIUM CHLORIDE 0.9% 1,000 ML IV SCH (15:20)
[2017-04-07] MEDS: FOLIC ACID 1 MG TAB PO SCH (15:20)
[2017-04-07] MEDS: MULTIVITAMINS, THERA 1 EACH TAB PO SCH (15:20)
[2017-04-07] MEDS: LEVOFLOXACIN 500 MG TAB PO SCH (15:20)
[2017-04-07 15:23] LABS: HGB 7.7 gm/dL (13.0-17.5)
[2017-04-07 17:23] LABS: Glucose,Whole Blood 115 mg/dL (75-99)
--- NOTE | 2017-04-07 19:35 | PN ---
DATE OF SERVICE: 04/07/2017 This 56-year-old gentleman with change in mental status, hepatic encephalopathy, also had significant hematoma of the left elbow also. Orthopedic surgery is planning incision and drainage. Patient also has anemia, which could multifactorial at this time. No active bleeding was noted. Hemoglobin dropped down to 5.5 at this time. PAST MEDICAL HISTORY: Reviewed. REVIEW OF SYSTEMS: CARDIOVASCULAR: No angina. RESPIRATORY: As mentioned earlier. GI: As mentioned earlier. GENITOURINARY: As mentioned earlier. NERVOUS SYSTEM: The patient is still drowsy at this time. Current medications are reviewed and include: 1. [place] 5 mg q.6. 2. Norvasc 10 mg daily. 3. Folic acid 1 mg daily. 4. Lasix 60 b.i.d. 5. Cephulac 30 mg q.i.d. 6. Levaquin 500 mg daily. 7. Synthroid 75 mcg. 8. ( ) 100 mg. 9. Magnesium oxide 400 mg. 10. Glucophage 500 mg daily. 11. Remeron 40 mg q.h.s. 12. Multivitamins 1 daily. 13. Habitrol 24 daily. 14. Protonix 40 mg b.i.d. 15. Seroquel 400 mg q.h.s. 16. Senokot. 17. Aldactone. 18. Vitamin B1. PHYSICAL EXAMINATION: The patient is alert and oriented x2. Pulse 89, blood pressure 124/56, respirations 18, temperature is 97.9. Pulse ox 99% on room air. HEENT: Conjunctivae normal. Oral mucosa moist. NECK: No jugular venous distention. No thyroid enlargement or carotid bruit. CARDIOVASCULAR: S1 and S2. No S3, no S4. Ejection systolic murmur present. RESPIRATORY: Breath sounds diminished at the bases. A few scattered rhonchi and crackles. ABDOMEN: Soft, distended. Ascites present. Nontender. No guarding. No rigidity. LEGS: Minimal edema. NERVOUS SYSTEM: Diffusely weak. Examination of the right elbow swelling and possible hematoma and abscess. LABS: WBC 8.1, hemoglobin is 5.5, and platelet count is 100 and INR 1.7, sodium 134. Ammonia is 59. ASSESSMENT: 1. Change in mental status acute metabolic encephalopathy hepatic encephalopathy secondary to hyperammonemia and chronic liver disease and cirrhosis of liver secondary to alcohol. 2. Abscess and hematoma of the right elbow. 3. Alcoholic liver disease with chronic liver disease. 4. Increased WBC. 5. Anemia, normocytic. 6. Coagulopathy secondary to chronic liver disease. 7. Increased random blood sugar. 8. Hyperbilirubinemia. 9. Hypoalbuminemia with mild to moderate protein calorie malnutrition. 10. History of cerebrovascular accident, transient ischemic attack. 11. History of chronic obstructive pulmonary disease. 12. Diabetes mellitus type 2. 13. Hypertension, essential. 14. Hypothyroidism. 15. History of right kidney surgery. 16. Bilateral knee surgery, degenerative joint disease. 17. Bipolar depression, not otherwise specified. 18. History of nicotine dependence. 19. FULL CODE. RECOMMENDATIONS AND DISCUSSION: I recommend to continue current medications. Continue symptomatic treatment. I would recommend 2 units of transfusion with Lasix and continue with lactulose to have at least 2 to 3 bowel movements. The patient also only had one bowel movement. Low protein diet. Orthopedic evaluation, possible incision and drainage of the abscess. Otherwise, continue the rest of the medications. Cultures. Guarded prognosis. Further recommendations to follow. MTDD
[2017-04-07 20:24] LABS: Glucose,Whole Blood 150 mg/dL (75-99)
[2017-04-07] MEDS: MIRTAZAPINE 45 MG TABLET PO SCH (20:26)
[2017-04-07] MEDS: PRAVASTATIN SODIUM 40 MG TAB PO SCH (20:27)
[2017-04-07] MEDS: QUEtiapine 400 MG TAB PO SCH (20:37)
[2017-04-07] MEDS ORDERED: IV VANCOMYCIN PER PHARMACY 1 EACH MISC MISCELLANE PRN (21:54)
--- NOTE | 2017-04-07 22:09 | P.CONS ---
History of Present Illness - Reason for Consult Consult date: 04/07/17 - Chief Complaint . Mental status - History of Present Illness 56-year-old male with a long-standing history of alcohol abuse as well as bipolar depression history of stroke and COPD other medical conditions that includes diabetes hypertension and hypothyroidism presents to the emergency center with altered mental status. Is a known long-standing history of alcohol abuse and hospitalization for acute hepatitis from alcohol use recently. Presents with marked change of his status. He was having distinct encephalopathy. Worsening ascites. Apparently developed a worsening abscess to his right arm. This has now been taking the operating room and incised and drained. Cultures are pending. Infectious disease consult for antibiotic recommendations given his extensive past medical history. The patient currently is unable to give any further history. It does seem to be comfortable. Review of Systems ROS unobtainable: due to mental status Past Medical History Past Medical History: COPD, CVA/TIA, Diabetes Mellitus, Hypertension, Thyroid Disorder History of Any Multi-Drug Resistant Organisms: None Reported Past Surgical History: Orthopedic Surgery Additional Past Surgical History / Comment(s): right kidney removed. kristina knee surgery. kidney stent for stones Past Psychological History: Bipolar, Depression Smoking Status: Current every day smoker Past Alcohol Use History: Heavy, Occasional Additional Past Alcohol Use History / Comment(s): has not drank in the past month Past Drug Use History: Unable to Obtain - Past Family History Mother Additional Family Medical History / Comment(s): skin cancer Medications and Allergies Home Medications and Allergies Comment(s): Current Medications Hydrocodone Bitart/Acetaminophen ([place] 5-325) 1 each PO Q6HR PRN PRN Reason: Pain Amlodipine Besylate (Norvasc) 10 mg PO DAILY [facility] Last Admin: 04/07/17 15:14 Dose: Not Given Folic Acid (Folic Acid) 1 mg PO DAILY@1200 [facility] Last Admin: 04/07/17 15:20 Dose: 1 mg Furosemide (Lasix) 60 mg PO BID@0900,1600 [facility] Last Admin: 04/07/17 15:20 Dose: 60 mg Sodium Chloride (Saline 0.9%) 1,000 mls @ 50 mls/hr IV .Q20H [facility] Last Admin: 04/07/17 15:20 Dose: 50 mls/hr Lactulose (Cephulac) 30 gm PO Q3H [place] Levofloxacin (Levaquin) 500 mg PO DAILY@1600 [facility] Last Admin: 04/07/17 15:20 Dose: 500 mg Levothyroxine Sodium (Synthroid) 75 mcg PO DAILY@0630 [facility] Last Admin: 04/07/17 05:40 Dose: 75 mcg Levothyroxine Sodium (Synthroid) 100 mcg PO DAILY@0630 [facility] Last Admin: 04/07/17 05:40 Dose: 100 mcg Magnesium Oxide (Mag-Ox) 400 mg PO TID [facility] Last Admin: 04/07/17 20:25 Dose: 400 mg Metformin HCl (Glucophage) 500 mg PO BID [facility] Last Admin: 04/07/17 20:26 Dose: 500 mg Mirtazapine (Remeron) 45 mg PO [facility] Last Admin: 04/07/17 20:26 Dose: 45 mg Miscellaneous Information (Pharmacy To Dose Iv Vancomycin) 1 each MISCELLANE DIRECTED PRN PRN Reason: Per Protocol Multivitamins (Theragran) 1 each PO DAILY@1200 [facility] Last Admin: 04/07/17 15:20 Dose: 1 each Nicotine (Habitrol 14mg/24hr Patch) 1 patch TRANSDERM DAILY [facility] Last Admin: 04/07/17 11:02 Dose: 1 patch Nitroglycerin (Nitrostat) 0.4 mg SUBLINGUAL Q5M PRN PRN Reason: Chest Pain Pantoprazole Sodium (Protonix) 40 mg IVP BID [facility] Last Admin: 04/07/17 20:26 Dose: 40 mg Pravastatin Sodium (Pravachol) 40 mg PO [facility] Last Admin: 04/07/17 20:27 Dose: 40 mg Quetiapine Fumarate (Seroquel) 400 mg PO [facility] Last Admin: 04/07/17 20:37 Dose: Not Given Senna (Senokot) 8.6 mg PO DAILY PRN PRN Reason: Constipation Spironolactone (Aldactone) 100 mg PO BID [facility] Last Admin: 04/07/17 20:27 Dose: Not Given Thiamine HCl (Vitamin B-1) 100 mg PO DAILY@1200 [facility] Last Admin: 04/07/17 15:20 Dose: 100 mg Home Medications Medication Instructions Recorded Confirmed Type Ferrous Sulfate [Iron (65 MG 325 mg PO BID 02/24/17 04/05/17 History Elemental)] Mirtazapine [Remeron] 45 mg PO HS 02/24/17 04/05/17 History Pravastatin Sodium [Pravachol] 40 mg PO DAILY 02/24/17 04/05/17 History QUEtiapine FUMARATE [SEROquel] 400 mg PO HS 02/24/17 04/05/17 History metFORMIN HCL [Glucophage] 500 mg PO BID 02/24/17 04/05/17 History Furosemide [Lasix] 60 mg PO BID 04/05/17 04/05/17 History Lactulose 20 gm PO DAILY 04/05/17 04/05/17 History Levothyroxine Sodium [Synthroid] 175 mcg PO DAILY 04/05/17 04/05/17 History Nitroglycerin Sl Tabs [Nitrostat] 0.4 mg SUBLINGUAL Q5M PRN 04/05/17 04/05/17 History Sennosides [Senokot] 8.6 mg PO DAILY PRN 04/05/17 04/05/17 History Spironolactone [Aldactone] 100 mg PO BID 04/05/17 04/05/17 History amLODIPine [Norvasc] 10 mg PO DAILY 04/05/17 04/05/17 History Allergies Allergy/AdvReac Type Severity Reaction Status Date / Time Penicillins Allergy Unknown Verified 04/05/17 14:48 Childhood Physical Exam Vitals: Vital Signs Temp Pulse Pulse Resp BP BP Pulse Ox 04/07/17 19:19 98.1 F 92 16 119/59 98 04/07/17 18:49 97.7 F 91 16 119/58 99 04/07/17 18:39 97.7 F 92 16 113/59 99 04/07/17 15:00 97.9 F 89 18 121/56 99 04/07/17 13:15 81 16 128/67 99 04/07/17 13:00 82 16 129/66 99 04/07/17 12:45 82 16 129/66 99 04/07/17 12:37 98.4 F 90 14 126/60 99 04/07/17 12:31 98 F 89 16 111/52 98 04/07/17 12:04 97.9 F 92 124/59 99 04/07/17 11:57 98 F 88 13 158/63 100 04/07/17 11:47 98.0 F 89 16 117/56 100 04/07/17 11:44 98 F 89 16 117/56 04/07/17 11:34 98.0 F 90 16 118/58 99 04/07/17 10:43 98.2 F 89 16 114/55 98 04/07/17 10:13 97.7 F 95 16 122/58 04/07/17 10:03 97.4 F L 94 16 101/52 04/07/17 07:00 97.9 F 95 18 103/50 99 04/06/17 23:00 97.9 F 100 16 108/55 100 Intake and Output 04/07/17 04/07/17 04/07/17 06:59 14:59 22:59 Intake Total 1090 721 0 Output Total 555 Balance 1090 166 0 Intake: IV 101 Oral 1090 Blood Product 620 0 Rc As-1 Unit 0 [id number] Rc As-1 Unit 310 [id number] Rc As-1 Unit 310 [id number] Output: Urine 550 Estimated Blood Loss 5 Other: Voiding Method Urinal Urinal Urinal Diaper Diaper Diaper Incontinent # Voids 2 56-year-old male who is mildly jaundiced his postoperative, with encephalopathy HEENT:mildly Icteric conjunctiva are pink and moist nasal mucosa grossly intact without significant lesions, there is no thrush. Neck: The neck is supple without significant lymphadenopathy or thyromegaly. Lungs: Good bilateral air entry without significant crackles or wheezing. There is no significant bronchial sounds. There is no egophony or dullness. Heart: Regular rate and rhythm with an audible S1-S2, no S3 no S4. There is no significant murmur click or rub, PMI was nondisplaced. Abdomen: Ascites is easily palpated. Organomegaly cannot be palpated. Abdomen does seem to be nontender. No palpable masses. Significant dilatated vessels of the abdominal wall. Extremities: The upper extremities have excellent pulses they are symmetric, no significant petechiae or telangiectasia. No splinter hemorrhages were noted. Lower extremity is evidence of trace edema. Peripheral pulses 2+ and symmetric. Neuro: The patient is I's open to stimulation only no other significant interactions at this time. Your does have evidence of asterixis Results CBC & Chem 7: 04/07/17 14:25 04/07/17 07:37 Labs: Abnormal Lab Results - Last 24 Hours (Table) 0504/07/17 04/07/17 Range/Units 07:08 07:37 07:37 WBC (3.8-10.6) k/uL RBC 1.76 L (4.30-5.90) m/uL Hgb 5.5 L* D (13.0-17.5) gm/dL Hct 17.4 L* (39.0-53.0) % RDW 23.5 H (11.5-15.5) % Plt Count 100 L D (150-450) k/uL Neutrophils # (1.3-7.7) k/uL PT 16.7 H (9.0-12.0) sec Sodium (137-145) mmol/L Chloride (98-107) mmol/L Carbon Dioxide (22-30) mmol/L BUN (9-20) mg/dL Glucose (74-99) mg/dL POC Glucose (mg/dL) 142 H (75-99) mg/dL Calcium (8.4-10.2) mg/dL Ammonia (<30) umol/L 04/07/17 04/07/17 04/07/17 Range/Units 07:37 07:37 11:30 WBC (3.8-10.6) k/uL RBC (4.30-5.90) m/uL Hgb (13.0-17.5) gm/dL Hct (39.0-53.0) % RDW (11.5-15.5) % Plt Count (150-450) k/uL Neutrophils # (1.3-7.7) k/uL PT (9.0-12.0) sec Sodium 134 L (137-145) mmol/L Chloride 109 H (98-107) mmol/L Carbon Dioxide 19 L (22-30) mmol/L BUN 38 H (9-20) mg/dL Glucose 109 H (74-99) mg/dL POC Glucose (mg/dL) 144 H (75-99) mg/dL Calcium 7.9 L (8.4-10.2) mg/dL Ammonia 59 H (<30) umol/L 04/07/17 04/07/17 04/07/17 Range/Units 14:25 17:16 20:23 WBC 11.2 H (3.8-10.6) k/uL RBC 2.51 L (4.30-5.90) m/uL Hgb 7.7 L D (13.0-17.5) gm/dL Hct 23.6 L (39.0-53.0) % RDW 22.6 H (11.5-15.5) % Plt Count 121 L (150-450) k/uL Neutrophils # 8.7 H (1.3-7.7) k/uL PT (9.0-12.0) sec Sodium (137-145) mmol/L Chloride (98-107) mmol/L Carbon Dioxide (22-30) mmol/L BUN (9-20) mg/dL Glucose (74-99) mg/dL POC Glucose (mg/dL) 115 H 150 H (75-99) mg/dL Calcium (8.4-10.2) mg/dL Ammonia (<30) umol/L Microbiology - Last 24 Hours (Table) 04/07/17 12:29 Anaerobic Culture - Preliminary Arm - Right 04/07/17 12:29 Wound Culture - Preliminary Arm - Right 04/06/17 13:59 Blood Culture - Preliminary Blood No Growth after 24 hours 04/06/17 15:35 Urine Culture - Preliminary Urine,Voided Laboratory Results WBC 11.2 k/uL (3.8-10.6) H 04/07/17 14:25 RBC 2.51 m/uL (4.30-5.90) L 04/07/17 14:25 Hgb 7.7 gm/dL (13.0-17.5) L D 04/07/17 14:25 Hct 23.6 % (39.0-53.0) L 04/07/17 14:25 MCV 94.0 fL (80.0-100.0) D 04/07/17 14:25 MCH 30.7 pg (25.0-35.0) 04/07/17 14:25 MCHC 32.7 g/dL (31.0-37.0) 04/07/17 14:25 RDW 22.6 % (11.5-15.5) H 04/07/17 14:25 Plt Count 121 k/uL (150-450) L 04/07/17 14:25 Neutrophils % 78 % 04/07/17 14:25 Lymphocytes % 12 % 04/07/17 14:25 Monocytes % 7 % 04/07/17 14:25 Eosinophils % 1 % 04/07/17 14:25 Basophils % 0 % 04/07/17 14:25 Neutrophils # 8.7 k/uL (1.3-7.7) H 04/07/17 14:25 Lymphocytes # 1.3 k/uL (1.0-4.8) 04/07/17 14:25 Monocytes # 0.7 k/uL (0-1.0) 04/07/17 14:25 Eosinophils # 0.1 k/uL (0-0.7) 04/07/17 14:25 Basophils # 0.0 k/uL (0-0.2) 04/07/17 14:25 Manual Slide Review Performed 04/07/17 07:37 Polychromasia Present 04/07/17 07:37 Hypochromasia Slight 04/07/17 07:37 Poikilocytosis Slight 04/07/17 14:25 Poikilocytosis (manual Present 04/07/17 07:37 Anisocytosis Moderate 04/07/17 14:25 Macrocytosis Slight 04/07/17 14:25 PT 16.7 sec (9.0-12.0) H 04/07/17 07:37 INR 1.7 (<1.1) 04/07/17 07:37 APTT 25.5 sec (22.0-30.0) 04/05/17 14:00 Sodium 134 mmol/L (137-145) L 04/07/17 07:37 Potassium 4.1 mmol/L (3.5-5.1) 04/07/17 07:37 Chloride 109 mmol/L (98-107) H 04/07/17 07:37 Carbon Dioxide 19 mmol/L (22-30) L 04/07/17 07:37 Anion Gap 6 mmol/L 04/07/17 07:37 BUN 38 mg/dL (9-20) H 04/07/17 07:37 Creatinine 1.06 mg/dL (0.66-1.25) 04/07/17 07:37 Est GFR (MDRD) Af Amer >60 (>60 ml/min/1.73 sqM) 04/07/17 07:37 Est GFR (MDRD) Non-Af >60 (>60 ml/min/1.73 sqM) 04/07/17 07:37 Glucose 109 mg/dL (74-99) H 04/07/17 07:37 POC Glucose (mg/dL) 150 mg/dL (75-99) H 04/07/17 20:23 POC Glu [employer] ID Jenelle Mcneil 04/07/17 20:23 Calcium 7.9 mg/dL (8.4-10.2) L 04/07/17 07:37 Total Bilirubin 1.5 mg/dL (0.2-1.3) H 04/05/17 14:00 AST 59 U/L (17-59) 04/05/17 14:00 ALT 36 U/L (21-72) 04/05/17 14:00 Alkaline Phosphatase 107 U/L (38-126) 04/05/17 14:00 Ammonia 59 umol/L (<30) H 04/07/17 07:37 Total Creatine Kinase 29 U/L (55-170) L 04/05/17 14:00 CK-MB (CK-2) 0.6 ng/mL (0.0-2.4) 04/05/17 14:00 CK-MB (CK-2) Rel Index 2.1 04/05/17 14:00 Troponin I <0.012 ng/mL (0.000-0.034) 04/05/17 14:00 Total Protein 7.3 g/dL (6.3-8.2) 04/05/17 14:00 Albumin 2.9 g/dL (3.5-5.0) L 04/05/17 14:00 Tumor Marker AFP 3.4 ng/mL (0.0-7.9) 04/06/17 11:50 Urine Color Yellow 04/05/17 15:18 Urine Appearance Clear (Clear) 04/05/17 15:18 Urine pH 6.0 (5.0-8.0) 04/05/17 15:18 Ur Specific [place] 1.013 (1.001-1.035) 04/05/17 15:18 Urine Protein Negative (Negative) 04/05/17 15:18 Urine Glucose (UA) Negative (Negative) 04/05/17 15:18 Urine Ketones Negative (Negative) 04/05/17 15:18 Urine Blood Negative (Negative) 04/05/17 15:18 Urine Nitrite Negative (Negative) 04/05/17 15:18 Urine Bilirubin Negative (Negative) 04/05/17 15:18 Urine Urobilinogen 3.0 mg/dL (<2.0) 04/05/17 15:18 Ur Leukocyte Esterase Negative (Negative) 04/05/17 15:18 Urine Opiates Screen Not Detected (NotDetected) 04/05/17 15:18 Ur Oxycodone Screen Not Detected (NotDetected) 04/05/17 15:18 Urine Methadone Screen Not Detected (NotDetected) 04/05/17 15:18 Ur Propoxyphene Screen Not Detected (NotDetected) 04/05/17 15:18 Ur Barbiturates Screen Not Detected (NotDetected) 04/05/17 15:18 U Tricyclic Antidepress Not Detected (NotDetected) 04/05/17 15:18 Ur Phencyclidine Scrn Not Detected (NotDetected) 04/05/17 15:18 Ur Amphetamines Screen Not Detected (NotDetected) 04/05/17 15:18 U Methamphetamines Scrn Not Detected (NotDetected) 04/05/17 15:18 U Benzodiazepines Scrn Not Detected (NotDetected) 04/05/17 15:18 Urine Cocaine Screen Not Detected (NotDetected) 04/05/17 15:18 U Marijuana (THC) Screen Not Detected (NotDetected) 04/05/17 15:18 Serum Alcohol <10 mg/dL 04/05/17 14:00 Blood Type A Negative 04/05/17 14:00 Blood Type Confirm A Negative 04/05/17 17:20 Blood Type Recheck CABO Indicated 04/05/17 14:00 Antibody Screen NEGATIVE 04/05/17 14:00 Crossmatch See Detail 04/05/17 14:00 Spec Expiration Date 04/08/2017229904/05/17 14:00 Microbiology 04/07/17 12:29 Arm - Right Anaerobic Culture - Preliminary 04/07/17 12:29 Arm - Right Wound Culture - Preliminary 04/06/17 13:59 Blood Blood Culture - Preliminary No Growth after 24 hours 04/06/17 15:35 Urine,Voided Urine Culture - Preliminary Assessment and Plan (1) Hepatic encephalopathy Narrative/Plan: 56-year-old male presents to Hospital altered mental status. His known history of extensive alcohol abuse. Is a known history of alcoholic hepatitis. Presents now with significant hepatic encephalopathy has been seen by gastroenterology treatment is being utilized. Patient did develop significant abscess to his right arm. Is now status post incision and drainage. Dressing is not removed since just a few hours and surgery. Patient is quite comfortable despite time again is quite encephalopathic. Does have evidence of some asterixis being seen. Patient does have leukocytosis likely due to the multiple processes at this time including abscess to his arm. He has significant anemia. Vancomycin therapy is added to current antibiotics with concerns with his history of prior hospitalization for persistent pathogen. Ultrasound process. Status: Acute (2) Abscess of right arm Status: Acute (3) Leukocytosis Status: Acute
[2017-04-07] MEDS ORDERED: VANCOMYCIN 2,000 MG in SODIUM CHLORIDE 0.9% 500 ML IVPB ONE (22:30)
[2017-04-08] MEDS: LACTULOSE 20 GM/30 ML CUP PO SCH ×7 (01:45→22:29)
[2017-04-08] MEDS: LEVOTHYROXINE 100 MCG TAB PO SCH (06:25)
[2017-04-08] MEDS: LEVOTHYROXINE 75 MCG TAB PO SCH (06:25)
[2017-04-08] MEDS ORDERED: PROPOFOL 10 MG/ML 20 ML VIAL IV ONE (07:02)
[2017-04-08] MEDS ORDERED: LIDOCAINE 1% INJ 10MG/ML (20 ML MDV) ONE (07:02)
[2017-04-08] MEDS ORDERED: IV FLUID CONTINUATION 1,000 ML IV ONE (07:07)
--- NOTE | 2017-04-08 07:20 | P.PCN ---
Date of Procedure: 04/08/17 Procedure(s) Performed: BRIEF HISTORY: Patient is a 56-year-old, pleasant, white male with history of alcohol cirrhosis of the liver was admitted to the hospital with hepatic encephalopathy. While in the hospital his drop his hemoglobin from 7.5-5.9 g/ dL requiring 2 units of blood transfusion. Yesterday his girlfriend stated that he had an episode of upper GI bleed prior to admission to the hospital. However the patient does not recall of this episode. Because of the severe anemia he scheduled for an upper endoscopy today. PROCEDURE PERFORMED: Esophagogastroduodenoscopy. PREOPERATIVE DIAGNOSIS: Severe anemia and recent episode of upper GI bleed. IV sedation per anesthesia. PROCEDURE: After informed consent was obtained, the patient was brought into the endoscopy unit. IV sedation was administered by Anesthesia under continuous monitoring. Initially the Olympus GIF-140 video endoscope was inserted into the mouth. Esophagus intubated without any difficulty. It was gradually advanced into the stomach and duodenum and carefully examined. The bulb and the second part of the duodenum appeared normal. The scope at this time was withdrawn to the stomach, adequately insufflated with air, and upon careful examination, mucosa of the antrum, body, cardia and the fundus had changes consistent with mild portal gastric hypertensive gastropathy. In the fundus of the stomach there was isolated large gastric varix identified with no stigmata of recent bleed. The scope was then withdrawn into the esophagus. The GE junction was located at 39 cm from the incisors. There were grade 1/2 distal esophageal varices seen. The rest of the esophagus appeared normal. There were no erosions or ulcerations seen and the patient tolerated the procedure well. IMPRESSION: 1. Gastric varices and grade 1/2 distal esophageal varices with no stigmata of recent bleed. 2. Portal hypertensive gastropathy. RECOMMENDATIONS: The findings of this examination were discussed with the patient . He will be started on a soft diet today. He will also be started on nonselective beta blockers to prevent variceal bleeding in the future.
[2017-04-08 08:00] LABS: Glucose,Whole Blood 116 mg/dL (75-99)
[2017-04-08 08:22] LABS: Anisocytosis Moderate; Basophils % (A) 0 %; CH 30.7; CHCM 33.8; Eosinophils # (A) 0.1 k/uL (0-0.7); Eosinophils % (A) 1 %; HCT 24.9 % (39.0-53.0); HDW 4.21; HGB 8.3 gm/dL (13.0-17.5); Hypochromasia Slight; Luc # (Auto) 0.39; Luc % (Auto) 3; Lymphocytes # (A) 1.3 k/uL (1.0-4.8); Lymphocytes % (A) 10 %; MCH 30.8 pg (25.0-35.0); MCHC 33.4 g/dL (31.0-37.0); MCV 92.3 fL (80.0-100.0); Macrocytosis Slight; Mean Platelet Volume 7.6; Monocytes # (A) 0.9 k/uL (0-1.0); Monocytes % (A) 7 %; Neutrophils # (A) 10.3 k/uL (1.3-7.7); Neutrophils % (A) 79 %; Poikilocytosis Moderate; RDW 22.7 % (11.5-15.5); WBC 13.1 k/uL (3.8-10.6); WBC (Perox) 12.94
[2017-04-08 08:23] LABS: Anion Gap 8 mmol/L; Blood Urea Nitrogen 32 mg/dL (9-20); Calcium 7.6 mg/dL (8.4-10.2); Carbon Dioxide 17 mmol/L (22-30); Chloride 110 mmol/L (98-107); Glucose 101 mg/dL (74-99); Non-African American GFR(MDRD) >60 (>60 ml/min/1.73 sqM); Potassium 3.9 mmol/L (3.5-5.1); Sodium 135 mmol/L (137-145)
[2017-04-08 08:42] LABS: INR 1.7 (<1.1); Prothrombin Time 16.3 sec (9.0-12.0)
[2017-04-08] MEDS: VANCOMYCIN 1,500 MG in SODIUM CHLORIDE 0.9% 250 ML IVPB SCH ×2 (08:52→22:27)
[2017-04-08] MEDS: SODIUM CHLORIDE 0.9% 1,000 ML IV SCH (08:53)
[2017-04-08] MEDS: PROPRANOLOL 10 MG TAB PO SCH ×3 (08:55→22:32)
[2017-04-08] MEDS: PANTOPRAZOLE 40 MG/10 ML VIAL IVP SCH ×2 (08:56→22:30)
[2017-04-08] MEDS: metFORMIN 500 MG TAB PO SCH ×2 (08:56→22:30)
[2017-04-08] MEDS: SPIRONOLACTONE 25 MG TAB PO SCH ×2 (08:56→22:29)
[2017-04-08] MEDS: amLODIPine 10 MG TAB PO SCH (08:56)
[2017-04-08] MEDS: RIFAXIMIN 550 MG TABLET PO SCH ×2 (08:56→22:29)
[2017-04-08] MEDS: MAGNESIUM OXIDE 400 MG TAB PO SCH ×3 (08:58→22:32)
[2017-04-08] MEDS: MULTIVITAMINS, THERA 1 EACH TAB PO SCH (08:59)
[2017-04-08] MEDS: THIAMINE 100 MG TAB PO SCH (08:59)
[2017-04-08] MEDS: NICOTINE 14MG/24HR PATCH TRANSDERM SCH (08:59)
[2017-04-08] MEDS: FOLIC ACID 1 MG TAB PO SCH (08:59)
--- NOTE | 2017-04-08 09:06 | P.PN ---
Subjective Principal diagnosis: Abscess of forearm. This is a 56-year-old male was admitted for hepatic encephalopathy, anemia and dehydration. Patient is status post I&D of the right forearm. Patient is postop day #1. Patient is doing well, denies any pain and has no new complaints. Objective - Vital Signs Vital signs: Vital Signs Temp 98 F 04/08/17 07:00 Pulse 85 04/08/17 07:00 Resp 18 04/08/17 07:00 BP 123/96 04/08/17 07:00 Pulse Ox 96 04/08/17 07:00 Intake & Output 04/07/17 04/08/17 04/08/17 18:59 06:59 18:59 Intake Total 721 1490 200 Output Total 555 Balance 166 1490 200 Intake: IV 101 200 Oral 1180 Blood Product 620 310 Rc As-1 Unit 0 310 [id number] Rc As-1 Unit 310 [id number] Rc As-1 Unit 310 [id number] Output: Urine 550 Estimated Blood Loss 5 Other: Voiding Method Urinal Urinal Diaper Diaper # Voids 3 # Bowel Movements 3 - Exam Right proximal forearm wound site with mild surrounding erythema, wound packing in place. No evidence of purulent drainage. No tenderness to palpation. Patient has full range of motion of the right upper extremity. Neurovascular status is intact. - Labs CBC & Chem 7: 04/08/17 07:48 04/08/17 07:48 Labs: Abnormal Lab Results - Last 24 Hours (Table) 04/07/17 04/07/17 04/07/17 Range/Units 07:37 07:37 11:30 WBC (3.8-10.6) k/uL RBC 1.76 L (4.30-5.90) m/uL Hgb 5.5 L* D (13.0-17.5) gm/dL Hct 17.4 L* (39.0-53.0) % RDW 23.5 H (11.5-15.5) % Plt Count 100 L D (150-450) k/uL Neutrophils # (1.3-7.7) k/uL PT (9.0-12.0) sec Sodium (137-145) mmol/L Chloride (98-107) mmol/L Carbon Dioxide (22-30) mmol/L BUN (9-20) mg/dL Glucose (74-99) mg/dL POC Glucose (mg/dL) 144 H (75-99) mg/dL Calcium (8.4-10.2) mg/dL Ammonia 59 H (<30) umol/L 04/07/17 04/07/17 04/07/17 Range/Units 14:25 17:16 20:23 WBC 11.2 H (3.8-10.6) k/uL RBC 2.51 L (4.30-5.90) m/uL Hgb 7.7 L D (13.0-17.5) gm/dL Hct 23.6 L (39.0-53.0) % RDW 22.6 H (11.5-15.5) % Plt Count 121 L (150-450) k/uL Neutrophils # 8.7 H (1.3-7.7) k/uL PT (9.0-12.0) sec Sodium (137-145) mmol/L Chloride (98-107) mmol/L Carbon Dioxide (22-30) mmol/L BUN (9-20) mg/dL Glucose (74-99) mg/dL POC Glucose (mg/dL) 115 H 150 H (75-99) mg/dL Calcium (8.4-10.2) mg/dL Ammonia (<30) umol/L 04/07/17 04/08/17 04/08/17 Range/Units 22:27 07:48 07:48 WBC 13.1 H (3.8-10.6) k/uL RBC 2.70 L (4.30-5.90) m/uL Hgb 8.3 L (13.0-17.5) gm/dL Hct 24.9 L (39.0-53.0) % RDW 22.7 H (11.5-15.5) % Plt Count 133 L (150-450) k/uL Neutrophils # 10.3 H (1.3-7.7) k/uL PT 16.3 H (9.0-12.0) sec Sodium (137-145) mmol/L Chloride (98-107) mmol/L Carbon Dioxide (22-30) mmol/L BUN (9-20) mg/dL Glucose (74-99) mg/dL POC Glucose (mg/dL) (75-99) mg/dL Calcium (8.4-10.2) mg/dL Ammonia 107 H (<30) umol/L 04/08/17 04/08/17 Range/Units 07:48 07:57 WBC (3.8-10.6) k/uL RBC (4.30-5.90) m/uL Hgb (13.0-17.5) gm/dL Hct (39.0-53.0) % RDW (11.5-15.5) % Plt Count (150-450) k/uL Neutrophils # (1.3-7.7) k/uL PT (9.0-12.0) sec Sodium 135 L (137-145) mmol/L Chloride 110 H (98-107) mmol/L Carbon Dioxide 17 L (22-30) mmol/L BUN 32 H (9-20) mg/dL Glucose 101 H (74-99) mg/dL POC Glucose (mg/dL) 116 H (75-99) mg/dL Calcium 7.6 L (8.4-10.2) mg/dL Ammonia (<30) umol/L Microbiology - Last 24 Hours (Table) 04/07/17 12:29 Gram Stain - Preliminary Arm - Right Wound Culture - Preliminary 04/07/17 12:29 Anaerobic Culture - Preliminary Arm - Right 04/06/17 13:59 Blood Culture - Preliminary Blood No Growth after 24 hours Assessment and Plan (1) Abscess Status: Acute Plan: #1. Continue antibiotics per medicine. #2. Continue routine wound care. #3. Will follow the patient closely.
--- NOTE | 2017-04-08 09:47 | P.PN ---
Subjective Principal diagnosis: Chronic liver disease history of EtOH abuse hepatic encephalopathy Status post incision and drainage right elbow abscess yesterday with orthopedics. Hemoglobin yesterday was 5.5 without overt GI bleeding such as hematemesis hematochezia or melena. s/p EGD this morning for evaluation of reported hematemesis prior to admission and anemia. Grade 1/2 varices identified without stigmata of bleeding. Variceal ligation not performed. Ammonia level CIX last night. Patient is alert this morning conversation is appropriate. He has had 4 large bowel movements. Tolerating clear liquids. Denies abdominal pain. Ultrasound abdomen reviewed features of cirrhosis small amount of abdominal ascites paracentesis not needed at this time. Objective - Vital Signs Vital signs: Vital Signs Temp 98 F 04/08/17 07:00 Pulse 85 04/08/17 07:00 Resp 18 04/08/17 07:00 BP 123/96 04/08/17 07:00 Pulse Ox 96 04/08/17 07:00 Intake & Output 04/07/17 04/08/17 04/08/17 18:59 06:59 18:59 Intake Total 721 1490 200 Output Total 555 Balance 166 1490 200 Intake: IV 101 200 Oral 1180 Blood Product 620 310 Rc As-1 Unit 0 310 [id number] Rc As-1 Unit 310 [id number] Rc As-1 Unit 310 [id number] Output: Urine 550 Estimated Blood Loss 5 Other: Voiding Method Urinal Urinal Diaper Diaper # Voids 3 # Bowel Movements 3 - Exam General appearance: The patient is alert, oriented, in no acute distress. HET: Head is normocephalic and atraumatic. Pupils are equal and reactive. Oropharynx is clear without lesions. Neck: Supple without lymphadenopathy. Trachea midline. Heart: S1 S2. Regular rate and rhythm. Lungs: No crackles or wheezes are heard. Abdomen: Soft, nontender, obese protuberant, no appreciable large amount of ascites, with bowel sounds. No peritoneal signs. No palpable organomegaly or masses. Extremities: Normal skin color and turgor. No cyanosis, rash, ulceration, clubbing, or edema. Radial and pedal pulses are 2/4 bilaterally. Neurological: Asterixis present. No focal deficits. Strength and sensation are grossly intact. - Labs CBC & Chem 7: 04/08/17 07:48 04/08/17 07:48 Labs: Abnormal Lab Results - Last 24 Hours (Table) 04/07/17 04/07/17 04/07/17 Range/Units 07:37 07:37 11:30 WBC (3.8-10.6) k/uL RBC 1.76 L (4.30-5.90) m/uL Hgb 5.5 L* D (13.0-17.5) gm/dL Hct 17.4 L* (39.0-53.0) % RDW 23.5 H (11.5-15.5) % Plt Count 100 L D (150-450) k/uL Neutrophils # (1.3-7.7) k/uL PT (9.0-12.0) sec Sodium (137-145) mmol/L Chloride (98-107) mmol/L Carbon Dioxide (22-30) mmol/L BUN (9-20) mg/dL Glucose (74-99) mg/dL POC Glucose (mg/dL) 144 H (75-99) mg/dL Calcium (8.4-10.2) mg/dL Ammonia 59 H (<30) umol/L 04/07/17 04/07/17 04/07/17 Range/Units 14:25 17:16 20:23 WBC 11.2 H (3.8-10.6) k/uL RBC 2.51 L (4.30-5.90) m/uL Hgb 7.7 L D (13.0-17.5) gm/dL Hct 23.6 L (39.0-53.0) % RDW 22.6 H (11.5-15.5) % Plt Count 121 L (150-450) k/uL Neutrophils # 8.7 H (1.3-7.7) k/uL PT (9.0-12.0) sec Sodium (137-145) mmol/L Chloride (98-107) mmol/L Carbon Dioxide (22-30) mmol/L BUN (9-20) mg/dL Glucose (74-99) mg/dL POC Glucose (mg/dL) 115 H 150 H (75-99) mg/dL Calcium (8.4-10.2) mg/dL Ammonia (<30) umol/L 04/07/17 04/08/17 04/08/17 Range/Units 22:27 07:48 07:48 WBC 13.1 H (3.8-10.6) k/uL RBC 2.70 L (4.30-5.90) m/uL Hgb 8.3 L (13.0-17.5) gm/dL Hct 24.9 L (39.0-53.0) % RDW 22.7 H (11.5-15.5) % Plt Count 133 L (150-450) k/uL Neutrophils # 10.3 H (1.3-7.7) k/uL PT 16.3 H (9.0-12.0) sec Sodium (137-145) mmol/L Chloride (98-107) mmol/L Carbon Dioxide (22-30) mmol/L BUN (9-20) mg/dL Glucose (74-99) mg/dL POC Glucose (mg/dL) (75-99) mg/dL Calcium (8.4-10.2) mg/dL Ammonia 107 H (<30) umol/L 04/08/17 04/08/17 04/08/17 Range/Units 07:48 07:48 07:57 WBC (3.8-10.6) k/uL RBC (4.30-5.90) m/uL Hgb (13.0-17.5) gm/dL Hct (39.0-53.0) % RDW (11.5-15.5) % Plt Count (150-450) k/uL Neutrophils # (1.3-7.7) k/uL PT (9.0-12.0) sec Sodium 135 L (137-145) mmol/L Chloride 110 H (98-107) mmol/L Carbon Dioxide 17 L (22-30) mmol/L BUN 32 H (9-20) mg/dL Glucose 101 H (74-99) mg/dL POC Glucose (mg/dL) 116 H (75-99) mg/dL Calcium 7.6 L (8.4-10.2) mg/dL Ammonia 65 H (<30) umol/L Microbiology - Last 24 Hours (Table) 04/07/17 12:29 Gram Stain - Preliminary Arm - Right Wound Culture - Preliminary 04/07/17 12:29 Anaerobic Culture - Preliminary Arm - Right 04/06/17 13:59 Blood Culture - Preliminary Blood No Growth after 24 hours Assessment and Plan (1) Hepatic encephalopathy Status: Acute (2) Chronic liver disease Status: Acute (3) ETOH abuse Status: Acute (4) Cirrhosis Status: Acute (5) Acute blood loss anemia Status: Acute (6) Ascites due to chronic alcoholic hepatitis Status: Acute (7) Abscess of right arm Status: Acute Plan: 1. Xifaxan 550 mg twice daily. 2. Adjust Lactulose 30 g 4 times a day. Patient is having more than 3 bowel movements daily. 3. Ammonia level pending we'll review. 4. Inderal 10 mg 3 times a day for esophageal varices management. 5. Low-salt diet. 6. We'll continue to monitor. Assessment and plan of care discussed with Dr. Azrola.
[2017-04-08 11:31] LABS: Glucose,Whole Blood 87 mg/dL (75-99)
--- NOTE | 2017-04-08 12:58 | CDI ---
In responding to this query, please exercise your independent professional judgment. The [facility] Coding Staff and Clinical Documentation Specialists appreciate your assistance in clarifying documentation, maintaining compliance with coding guidelines, accurately documenting patients condition and capturing severity of illness. The fact that a question is asked does not imply that any particular answer is desired or expected. Communication forms are a method of clarifying documentation and are not made part of the Legal Health Record. Thank you in advance for your clarification. Last Revision, September 2015 Janethtabitha Souza [address] [facility] [place] [address] Documentation Clarification Form Date: 04/08/2017 12:49:00 PM From: Shaunaelier Petercharity Admit Date: 04/05/2017 4:43:00 PM Patient Name: Brodie Douglass Visit Number: [id number] Dr. Marquez Pettit Per your progress notes/operative note, please clarify if a debridement was performed on 04/07/2017. Documentation included 'a knife was used to sharply excise skin, subcutaneous tissue and fascia'. History/Risk Factors: Abscess of right arm Clinical Indicators: Incision and Drainage of Abscess of right arm on 04/07 - tissue was excised Treatment: Irrigation Arm was packed open with gauze Five elements required for accurate and compliant documentation of a debridement : 1. Technique used (e.g., excisional, excised, cutting, etc.) 2. Instrument(s) used (e.g., scalpel, curette, etc.) 3. Nature of the tissue removed (e.g., necrotic, devitalized tissues, non- viable tissue, etc.) 4. Appearance and size of the wound (e.g., down to fresh bleeding tissue, 7cm x 10cm, etc.) 5. Depth of the debridement* (e.g., skin, subcutaneous tissue, fascia, muscle , bone, etc.) In order to capture the severity of condition and code the appropriate procedure could you please document the following: Excisional debridement (the removal of necrotic, devitalized tissue or slough by means of cutting away of tissue) Non-excisional debridement (the removal of necrotic, devitalized tissue or slough by means of flushing, brushing, or washing. (Irrigation) Other; with explanation for clinical findings Unable to determine (no explanation for clinical findings) Please document in your progress notes and discharge summary in order to capture severity of illness and risk of mortality. Include clinical findings that support your diagnosis. FYI: Press F11 to launch patient chart. Place X here if this finding has no clinical significance, is not applicable or if you are not able to provide any additional documentation. BARNEYD
[2017-04-08] MEDS: FUROSEMIDE 20 MG TAB PO SCH ×2 (13:14→17:38)
[2017-04-08 17:10] LABS: Glucose,Whole Blood 103 mg/dL (75-99)
[2017-04-08] MEDS: LEVOFLOXACIN 500 MG TAB PO SCH (17:38)
[2017-04-08] MEDS: PHYTONADIONE ORAL 5 MG/5 ML ORAL.SYRG PO SCH (17:39)
--- NOTE | 2017-04-08 19:09 | PN ---
DATE OF SERVICE: 04/08/2017 This 56-year-old gentleman who was admitted with change in mental status, also had acute metabolic encephalopathy and hepatic encephalopathy. The patient did not have bowel movements, but after increased dose of Lasix the patient had multiple, at least 3 or 4, large bowel movements. Patient's sensorium improved significantly. Ammonia is still elevated at 107 and 65. The patient also started on Rifaximin. Sodium is 135. WBC 13.1. Patient remains on empiric antibiotics and cultures are negative so for. PAST MEDICAL HISTORY: Reviewed. REVIEW OF SYSTEMS: CARDIOVASCULAR: No angina. RESPIRATORY: As mentioned earlier. GI: As mentioned earlier. : No dysuria. NERVOUS SYSTEM: As mentioned earlier, diffusely weak. Current medications are reviewed and include: 1. Tina 5 mg q.6. 2. Norvasc. 3. Folic acid. 4. Cephulac. 5. Levaquin 500 mg a day. 6. Synthroid 175 mcg p.o. daily. 7. Magnesium oxide 400 mg p.o. t.i.d. 9. Remeron 45 mg p.o. q.h.s. 10. Multivitamins 1 p.o. daily. 11. Habitrol 14 daily. 12. Nitrostat 0.4 sublingual. 13. Protonix 40 mg b.i.d. 14. Pravachol 40 mg p.o. daily. 15. Inderal 10 mg p.o. t.i.d. 16. Seroquel 400 mg q.h.s. 17. Rifaximin 550 mg p.o. b.i.d. 18. Senokot 8.6 daily. 19. Aldactone 100 mg b.i.d. 20. Vitamin B 100 mg daily. 21. Vancomycin IV. PHYSICAL EXAMINATION: Patient is alert, oriented x2. Pulse 85, blood pressure is 123/96, respirations 18, temperature 98.2. Pulse ox 90% on room air. HEENT: Conjunctivae normal. Oral mucosa moist. NECK: No jugular venous distention. CARDIOVASCULAR: S1 and S2, muffled. RESPIRATORY: Breath sounds diminished at the bases. A few scattered rhonchi and crackles. ABDOMEN: Soft, obese. Ascites present, mostly distention. Bowel sounds present. No guarding. no rigidity. No hepatosplenomegaly. LEGS: Minimal edema. NERVOUS SYSTEM: Higher function as mentioned. Moves all four limbs. No focal motor deficits. LYMPHATIC: No lymphadenopathy in the neck, axillae or groin. SKIN: No ulcer, rash or bleeding. LABS: WBC 13, hemoglobin 8.9, INR 1.7, sodium 135, ammonia 65. ASSESSMENT: 1. Change in mental status with acute metabolic encephalopathy, hepatic encephalopathy secondary to hyperammonemia and chronic liver disease and cirrhosis of liver secondary to alcohol. 2. Abscess and hematoma of the right elbow status post incision and drainage. 3. Alcoholic with chronic liver disease. 4. Increased WBC. 5. Anemia, normocytic. 6. Coagulopathy secondary to chronic liver disease. 7. Increased random blood sugar. 8. Hyperbilirubinemia. 9. Hypoalbuminemia with mild to moderate protein calorie malnutrition. 10. History of cerebrovascular accident, transient ischemic attack. 11. History of chronic obstructive pulmonary disease. 12. History of diabetes mellitus type 2. 13. Hypertension, essential. 14. Hypothyroidism. 15. History of right kidney surgery. 16. Bilateral knee surgery and degenerative joint disease. 17. Bipolar depression, not otherwise specified. 18. History of nicotine dependence. 19. FULL CODE. 20. Gastric varices and portal gastropathy. RECOMMENDATIONS AND DISCUSSION: In this 56-year-old gentleman who presented with multiple complex medical issues, we will monitor the patient closely. Continue the current medications and symptomatic treatment. Otherwise at this time I recommend continue with lactulose at least 2 to 3 bowel movements, rifaximin and EGD report noted, which showed gastric varices and grade 1 to 2 distal esophageal varices with bleed and portal hypertension and portal gastropathy. I recommend to continue the rest of the medications. Otherwise, repeat labs. The patient also had coagulopathy. Vitamin K will also be given. Further recommendations to follow. MTDD
[2017-04-08 21:03] LABS: Glucose,Whole Blood 125 mg/dL (75-99)
[2017-04-08] MEDS: PRAVASTATIN SODIUM 40 MG TAB PO SCH (22:30)
[2017-04-08] MEDS: MIRTAZAPINE 45 MG TABLET PO SCH (22:31)
[2017-04-08] MEDS: QUEtiapine 400 MG TAB PO SCH (22:32)
--- NOTE | 2017-04-08 23:44 | P.PN ---
Subjective Principal diagnosis: hepatic encephalopathy 56-year-old male with a long-standing history of alcohol abuse as well as bipolar depression history of stroke and COPD other medical conditions that includes diabetes hypertension and hypothyroidism presents to the emergency center with altered mental status. Is a known long-standing history of alcohol abuse and hospitalization for acute hepatitis from alcohol use recently. Presents with marked change of his status. He was having distinct encephalopathy. Worsening ascites. Apparently developed a worsening abscess to his right arm. This has now been taking the operating room and incised and drained. Cultures are pending. Infectious disease consult for antibiotic recommendations given his extensive past medical history. Patient is status post EGD. Evidence of bleeding and esophageal varices. Is being followed by gastroenterology. Objective - Vital Signs Vital signs: Vital Signs Temp 97.6 F 04/08/17 23:00 Pulse 64 04/08/17 23:00 Resp 18 04/08/17 23:00 BP 125/42 04/08/17 23:00 Pulse Ox 97 04/08/17 23:00 Intake & Output 04/08/17 04/08/17 04/09/17 06:59 18:59 06:59 Intake Total 1490 1250 Balance 1490 1250 Intake: IV 200 Intake, IV Titration 650 Amount Sodium Chloride 0.9% 1, 400 000 ml @ 50 mls/hr IV . Q20H TEQUILA Rx#:[id number] Vancomycin 1,500 mg In 250 Sodium Chloride 0.9% 250 ml @ 125 mls/hr IVPB Q12H TEQUILA Rx#:[id number] Oral 1180 400 Blood Product 310 Rc As-1 Unit 310 [id number] Other: Voiding Method Urinal Urinal Diaper Diaper # Voids 3 2 # Bowel Movements 3 1 - Exam 56-year-old male who is mildly jaundiced his postoperative, with encephalopathy HEENT:mildly Icteric conjunctiva are pink and moist nasal mucosa grossly intact without significant lesions, there is no thrush. Neck: The neck is supple without significant lymphadenopathy or thyromegaly. Lungs: Good bilateral air entry without significant crackles or wheezing. There is no significant bronchial sounds. There is no egophony or dullness. Heart: Regular rate and rhythm with an audible S1-S2, no S3 no S4. There is no significant murmur click or rub, PMI was nondisplaced. Abdomen: Ascites is easily palpated. Organomegaly cannot be palpated. Abdomen does seem to be nontender. No palpable masses. Significant dilatated vessels of the abdominal wall. Extremities: The upper extremities have excellent pulses they are symmetric, no significant petechiae or telangiectasia. No splinter hemorrhages were noted. Lower extremity is evidence of trace edema. Peripheral pulses 2+ and symmetric. Neuro: The patient isnow awake and alert. Still very poor - Labs CBC & Chem 7: 04/08/17 07:48 04/08/17 07:48 Labs: Abnormal Lab Results - Last 24 Hours (Table) 04/08/17 04/08/17 04/08/17 Range/Units 07:48 07:48 07:48 WBC 13.1 H (3.8-10.6) k/uL RBC 2.70 L (4.30-5.90) m/uL Hgb 8.3 L (13.0-17.5) gm/dL Hct 24.9 L (39.0-53.0) % RDW 22.7 H (11.5-15.5) % Plt Count 133 L (150-450) k/uL Neutrophils # 10.3 H (1.3-7.7) k/uL PT 16.3 H (9.0-12.0) sec Sodium 135 L (137-145) mmol/L Chloride 110 H (98-107) mmol/L Carbon Dioxide 17 L (22-30) mmol/L BUN 32 H (9-20) mg/dL Glucose 101 H (74-99) mg/dL POC Glucose (mg/dL) (75-99) mg/dL Calcium 7.6 L (8.4-10.2) mg/dL Ammonia (<30) umol/L 04/08/17 04/08/17 04/08/17 Range/Units 07:48 07:57 16:58 WBC (3.8-10.6) k/uL RBC (4.30-5.90) m/uL Hgb (13.0-17.5) gm/dL Hct (39.0-53.0) % RDW (11.5-15.5) % Plt Count (150-450) k/uL Neutrophils # (1.3-7.7) k/uL PT (9.0-12.0) sec Sodium (137-145) mmol/L Chloride (98-107) mmol/L Carbon Dioxide (22-30) mmol/L BUN (9-20) mg/dL Glucose (74-99) mg/dL POC Glucose (mg/dL) 116 H 103 H (75-99) mg/dL Calcium (8.4-10.2) mg/dL Ammonia 65 H (<30) umol/L 04/08/17 Range/Units 21:02 WBC (3.8-10.6) k/uL RBC (4.30-5.90) m/uL Hgb (13.0-17.5) gm/dL Hct (39.0-53.0) % RDW (11.5-15.5) % Plt Count (150-450) k/uL Neutrophils # (1.3-7.7) k/uL PT (9.0-12.0) sec Sodium (137-145) mmol/L Chloride (98-107) mmol/L Carbon Dioxide (22-30) mmol/L BUN (9-20) mg/dL Glucose (74-99) mg/dL POC Glucose (mg/dL) 125 H (75-99) mg/dL Calcium (8.4-10.2) mg/dL Ammonia (<30) umol/L Microbiology - Last 24 Hours (Table) 04/06/17 15:35 Urine Culture - Final Urine,Voided Enterococcus faecalis 04/06/17 13:59 Blood Culture - Preliminary Blood No Growth after 48 hours 04/07/17 12:29 Gram Stain - Preliminary Arm - Right Wound Culture - Preliminary Presumptive Staph aureus Laboratory Results WBC 13.1 k/uL (3.8-10.6) H 04/08/17 07:48 RBC 2.70 m/uL (4.30-5.90) L 04/08/17 07:48 Hgb 8.3 gm/dL (13.0-17.5) L 04/08/17 07:48 Hct 24.9 % (39.0-53.0) L 04/08/17 07:48 MCV 92.3 fL (80.0-100.0) 04/08/17 07:48 MCH 30.8 pg (25.0-35.0) 04/08/17 07:48 MCHC 33.4 g/dL (31.0-37.0) 04/08/17 07:48 RDW 22.7 % (11.5-15.5) H 04/08/17 07:48 Plt Count 133 k/uL (150-450) L 04/08/17 07:48 Neutrophils % 79 % 04/08/17 07:48 Lymphocytes % 10 % 04/08/17 07:48 Monocytes % 7 % 04/08/17 07:48 Eosinophils % 1 % 04/08/17 07:48 Basophils % 0 % 04/08/17 07:48 Neutrophils # 10.3 k/uL (1.3-7.7) H 04/08/17 07:48 Lymphocytes # 1.3 k/uL (1.0-4.8) 04/08/17 07:48 Monocytes # 0.9 k/uL (0-1.0) 04/08/17 07:48 Eosinophils # 0.1 k/uL (0-0.7) 04/08/17 07:48 Basophils # 0.0 k/uL (0-0.2) 04/08/17 07:48 Manual Slide Review Performed 04/07/17 07:37 Polychromasia Present 04/07/17 07:37 Hypochromasia Slight 04/08/17 07:48 Poikilocytosis Moderate 04/08/17 07:48 Poikilocytosis (manual Present 04/07/17 07:37 Anisocytosis Moderate 04/08/17 07:48 Macrocytosis Slight 04/08/17 07:48 PT 16.3 sec (9.0-12.0) H 04/08/17 07:48 INR 1.7 (<1.1) 04/08/17 07:48 APTT 25.5 sec (22.0-30.0) 04/05/17 14:00 Sodium 135 mmol/L (137-145) L 04/08/17 07:48 Potassium 3.9 mmol/L (3.5-5.1) 04/08/17 07:48 Chloride 110 mmol/L (98-107) H 04/08/17 07:48 Carbon Dioxide 17 mmol/L (22-30) L 04/08/17 07:48 Anion Gap 8 mmol/L 04/08/17 07:48 BUN 32 mg/dL (9-20) H 04/08/17 07:48 Creatinine 0.92 mg/dL (0.66-1.25) 04/08/17 07:48 Est GFR (MDRD) Af Amer >60 (>60 ml/min/1.73 sqM) 04/08/17 07:48 Est GFR (MDRD) Non-Af >60 (>60 ml/min/1.73 sqM) 04/08/17 07:48 Glucose 101 mg/dL (74-99) H 04/08/17 07:48 POC Glucose (mg/dL) 125 mg/dL (75-99) H 04/08/17 21:02 POC Glu Dormitory Maid ID Altagracia Lewis 04/08/17 21:02 Calcium 7.6 mg/dL (8.4-10.2) L 04/08/17 07:48 Total Bilirubin 1.5 mg/dL (0.2-1.3) H 04/05/17 14:00 AST 59 U/L (17-59) 04/05/17 14:00 ALT 36 U/L (21-72) 04/05/17 14:00 Alkaline Phosphatase 107 U/L (38-126) 04/05/17 14:00 Ammonia 65 umol/L (<30) H 04/08/17 07:48 Total Creatine Kinase 29 U/L (55-170) L 04/05/17 14:00 CK-MB (CK-2) 0.6 ng/mL (0.0-2.4) 04/05/17 14:00 CK-MB (CK-2) Rel Index 2.1 04/05/17 14:00 Troponin I <0.012 ng/mL (0.000-0.034) 04/05/17 14:00 Total Protein 7.3 g/dL (6.3-8.2) 04/05/17 14:00 Albumin 2.9 g/dL (3.5-5.0) L 04/05/17 14:00 Tumor Marker AFP 3.4 ng/mL (0.0-7.9) 04/06/17 11:50 Urine Color Yellow 04/05/17 15:18 Urine Appearance Clear (Clear) 04/05/17 15:18 Urine pH 6.0 (5.0-8.0) 04/05/17 15:18 Ur Specific [place] 1.013 (1.001-1.035) 04/05/17 15:18 Urine Protein Negative (Negative) 04/05/17 15:18 Urine Glucose (UA) Negative (Negative) 04/05/17 15:18 Urine Ketones Negative (Negative) 04/05/17 15:18 Urine Blood Negative (Negative) 04/05/17 15:18 Urine Nitrite Negative (Negative) 04/05/17 15:18 Urine Bilirubin Negative (Negative) 04/05/17 15:18 Urine Urobilinogen 3.0 mg/dL (<2.0) 04/05/17 15:18 Ur Leukocyte Esterase Negative (Negative) 04/05/17 15:18 Urine Opiates Screen Not Detected (NotDetected) 04/05/17 15:18 Ur Oxycodone Screen Not Detected (NotDetected) 04/05/17 15:18 Urine Methadone Screen Not Detected (NotDetected) 04/05/17 15:18 Ur Propoxyphene Screen Not Detected (NotDetected) 04/05/17 15:18 Ur Barbiturates Screen Not Detected (NotDetected) 04/05/17 15:18 U Tricyclic Antidepress Not Detected (NotDetected) 04/05/17 15:18 Ur Phencyclidine Scrn Not Detected (NotDetected) 04/05/17 15:18 Ur Amphetamines Screen Not Detected (NotDetected) 04/05/17 15:18 U Methamphetamines Scrn Not Detected (NotDetected) 04/05/17 15:18 U Benzodiazepines Scrn Not Detected (NotDetected) 04/05/17 15:18 Urine Cocaine Screen Not Detected (NotDetected) 04/05/17 15:18 U Marijuana (THC) Screen Not Detected (NotDetected) 04/05/17 15:18 Serum Alcohol <10 mg/dL 04/05/17 14:00 Blood Type A Negative 04/05/17 14:00 Blood Type Confirm A Negative 04/05/17 17:20 Blood Type Recheck CABO Indicated 04/05/17 14:00 Antibody Screen NEGATIVE 04/05/17 14:00 Crossmatch See Detail 04/05/17 14:00 Spec Expiration Date 04/08/2017229904/05/17 14:00 Microbiology 04/06/17 15:35 Urine,Voided Urine Culture - Final Enterococcus faecalis 04/06/17 13:59 Blood Blood Culture - Preliminary No Growth after 48 hours 04/07/17 12:29 Arm - Right Gram Stain - Preliminary 04/07/17 12:29 Arm - Right Wound Culture - Preliminary Presumptive Staph aureus 04/07/17 12:29 Arm - Right Anaerobic Culture - Preliminary Assessment and Plan (1) Hepatic encephalopathy Narrative/Plan: 56-year-old male presents to Hospital altered mental status. His known history of extensive alcohol abuse. Is a known history of alcoholic hepatitis. Presents now with significant hepatic encephalopathy has been seen by gastroenterology treatment is being utilized. Patient did develop significant abscess to his right arm. Is now status post incision and drainage. Dressing is not removed since just a few hours and surgery. Patient is quite comfortable despite time again is quite encephalopathic. had evidence of some asterixis yesterday Now improved. Patient does have leukocytosis likely due to the multiple processes at this time including abscess to his arm. He has significant anemia. Vancomycin therapy is added to current antibiotics with concerns with his history of prior hospitalization for persistent pathogen.currently lab is relating a staph iván Ultrasound process. Status: Acute (2) Abscess of right arm Status: Acute (3) Leukocytosis Status: Acute
[2017-04-09] MEDS: SODIUM CHLORIDE 0.9% 1,000 ML IV SCH ×2 (04:47→18:29)
[2017-04-09] MEDS: LEVOTHYROXINE 100 MCG TAB PO SCH (06:21)
[2017-04-09] MEDS: LEVOTHYROXINE 75 MCG TAB PO SCH (06:21)
[2017-04-09 07:24] LABS: Glucose,Whole Blood 109 mg/dL (75-99)
[2017-04-09 08:18] LABS: INR 1.6 (<1.1); Prothrombin Time 15.3 sec (9.0-12.0)
[2017-04-09 08:20] LABS: Anisocytosis Moderate; Basophils % (A) 0 %; CH 30.1; CHCM 32.3; Eosinophils # (A) 0.1 k/uL (0-0.7); Eosinophils % (A) 1 %; HCT 23.9 % (39.0-53.0); HDW 3.92; HGB 7.5 gm/dL (13.0-17.5); Hypochromasia Slight; Luc # (Auto) 0.27; Luc % (Auto) 4; Lymphocytes # (A) 1.4 k/uL (1.0-4.8); Lymphocytes % (A) 19 %; MCH 29.5 pg (25.0-35.0); MCHC 31.2 g/dL (31.0-37.0); MCV 94.4 fL (80.0-100.0); Macrocytosis Slight; Mean Platelet Volume 8.1; Monocytes # (A) 0.9 k/uL (0-1.0); Monocytes % (A) 12 %; Neutrophils # (A) 4.8 k/uL (1.3-7.7); Neutrophils % (A) 65 %; Poikilocytosis Slight; RBC 2.53 m/uL (4.30-5.90); RDW 21.9 % (11.5-15.5); WBC 7.5 k/uL (3.8-10.6); WBC (Perox) 7.62
[2017-04-09] MEDS: MAGNESIUM OXIDE 400 MG TAB PO SCH ×3 (09:02→20:53)
[2017-04-09] MEDS: RIFAXIMIN 550 MG TABLET PO SCH ×2 (09:03→20:53)
[2017-04-09] MEDS: PROPRANOLOL 10 MG TAB PO SCH ×3 (09:03→20:53)
[2017-04-09] MEDS: SPIRONOLACTONE 25 MG TAB PO SCH ×2 (09:03→20:43)
[2017-04-09] MEDS: NICOTINE 14MG/24HR PATCH TRANSDERM SCH (09:03)
[2017-04-09 09:04] LABS: Anion Gap 6 mmol/L; Blood Urea Nitrogen 25 mg/dL (9-20); Calcium 7.4 mg/dL (8.4-10.2); Carbon Dioxide 18 mmol/L (22-30); Chloride 108 mmol/L (98-107); Glucose 86 mg/dL (74-99); Non-African American GFR(MDRD) >60 (>60 ml/min/1.73 sqM); Potassium 3.7 mmol/L (3.5-5.1); Sodium 132 mmol/L (137-145)
[2017-04-09] MEDS: FUROSEMIDE 20 MG TAB PO SCH ×2 (09:06→16:13)
[2017-04-09] MEDS: LACTULOSE 20 GM/30 ML CUP PO SCH ×4 (09:11→21:54)
[2017-04-09] MEDS: PANTOPRAZOLE 40 MG/10 ML VIAL IVP SCH ×2 (09:11→20:52)
[2017-04-09] MEDS: metFORMIN 500 MG TAB PO SCH ×2 (09:12→20:52)
[2017-04-09] MEDS: PHYTONADIONE ORAL 5 MG/5 ML ORAL.SYRG PO SCH (09:14)
--- NOTE | 2017-04-09 09:20 | P.PN ---
Subjective Principal diagnosis: Abscess of forearm. This is a 56-year-old male was admitted for hepatic encephalopathy, anemia and dehydration. Patient was consulted for orthopedic evaluation due to a forearm abscess. Patient is status post I&D of the right forearm. Patient is postop day #2. Patient is doing well, denies any pain and has no new complaints. Objective - Vital Signs Vital signs: Vital Signs Temp 98.5 F 04/09/17 07:00 Pulse 71 04/09/17 07:00 Resp 16 04/09/17 07:00 BP 96/55 04/09/17 07:00 Pulse Ox 96 04/09/17 07:00 Intake & Output 04/08/17 04/09/17 04/09/17 18:59 06:59 18:59 Intake Total 1250 1380 Output Total 950 Balance 1250 430 Intake: IV 200 Intake, IV Titration 650 500 Amount Sodium Chloride 0.9% 1, 400 500 000 ml @ 50 mls/hr IV . Q20H [facility] Rx#:[id number] Vancomycin 1,500 mg In 250 Sodium Chloride 0.9% 250 ml @ 125 mls/hr IVPB Q12H [facility] Rx#:[id number] Oral 400 880 Output: Urine 950 Other: Voiding Method Urinal Urinal Diaper Diaper # Voids 2 3 # Bowel Movements 1 1 - Exam Right proximal forearm wound site with mild erythema, wound packing in place. Wound is healing well. No evidence of purulent drainage. No tenderness to palpation. Patient has full range of motion of the right upper extremity. Neurovascular status is intact. - Labs CBC & Chem 7: 04/09/17 07:51 04/09/17 07:51 Labs: Abnormal Lab Results - Last 24 Hours (Table) 04/08/17 04/08/17 04/08/17 Range/Units 07:48 16:58 21:02 RBC (4.30-5.90) m/uL Hgb (13.0-17.5) gm/dL Hct (39.0-53.0) % RDW (11.5-15.5) % Plt Count (150-450) k/uL PT (9.0-12.0) sec POC Glucose (mg/dL) 103 H 125 H (75-99) mg/dL Ammonia 65 H (<30) umol/L 0504/09/17 04/09/17 Range/Units 07:22 07:51 07:51 RBC 2.53 L (4.30-5.90) m/uL Hgb 7.5 L (13.0-17.5) gm/dL Hct 23.9 L (39.0-53.0) % RDW 21.9 H (11.5-15.5) % Plt Count 119 L (150-450) k/uL PT 15.3 H (9.0-12.0) sec POC Glucose (mg/dL) 109 H (75-99) mg/dL Ammonia (<30) umol/L Microbiology - Last 24 Hours (Table) 04/06/17 15:35 Urine Culture - Final Urine,Voided Enterococcus faecalis 04/06/17 13:59 Blood Culture - Preliminary Blood No Growth after 48 hours 04/07/17 12:29 Gram Stain - Preliminary Arm - Right Wound Culture - Preliminary Presumptive Staph aureus Assessment and Plan (1) Abscess Status: Acute Plan: #1. Continue antibiotics per medicine. #2. Continue routine daily wound care. #3. Patient may follow up in the office with Dr. Marquez Pettit if needed.
[2017-04-09] MEDS: HYDROcodone/APAP 5-325MG 1 EACH TAB PO PRN ×3 (09:27→20:53)
[2017-04-09] MEDS: amLODIPine 10 MG TAB PO SCH (09:30)
[2017-04-09] MEDS: VANCOMYCIN 1,500 MG in SODIUM CHLORIDE 0.9% 250 ML IVPB SCH ×2 (09:37→21:54)
--- NOTE | 2017-04-09 11:37 | P.PN ---
Subjective Principal diagnosis: Chronic liver disease history of EtOH abuse hepatic encephalopathy Status post incision and drainage right elbow abscess and EGD for evaluation of anemia and reported hematemesis prior to admission. Grade 1/2 varices identified without stigmata of bleeding. Variceal ligation not performed. Hemoglobin 7.5. No episodes of GI bleeding such as hematemesis hematochezia or melena. INR 1.6. Ammonia level 114 receiving lactulose and Xifaxan. Patient is alert this morning conversation is appropriate. Passing bowel movements. Tolerating regular liquids. Denies abdominal pain. Wound cultures presumptive Staphylococcus aureus. Urine culture Enterococcus faecalis. Objective - Vital Signs Vital signs: Vital Signs Temp 98.5 F 04/09/17 07:00 Pulse 71 04/09/17 08:00 Resp 16 04/09/17 08:00 BP 96/55 04/09/17 07:00 Pulse Ox 96 04/09/17 07:00 Intake & Output 04/08/17 04/09/17 04/09/17 18:59 06:59 18:59 Intake Total 1250 1380 Output Total 950 400 Balance 1250 430 -400 Intake: IV 200 Intake, IV Titration 650 500 Amount Sodium Chloride 0.9% 1, 400 500 000 ml @ 50 mls/hr IV . Q20H [facility] Rx#:[id number] Vancomycin 1,500 mg In 250 Sodium Chloride 0.9% 250 ml @ 125 mls/hr IVPB Q12H [facility] Rx#:[id number] Oral 400 880 Output: Urine 950 400 Other: Voiding Method Urinal Urinal Urinal Diaper Diaper Diaper # Voids 2 3 3 # Bowel Movements 1 1 1 - Exam General appearance: The patient is alert, oriented, in no acute distress. HET: Head is normocephalic and atraumatic. Pupils are equal and reactive. Oropharynx is clear without lesions. Neck: Supple without lymphadenopathy. Trachea midline. Heart: S1 S2. Regular rate and rhythm. Lungs: No crackles or wheezes are heard. Abdomen: Soft, nontender, obese protuberant, no appreciable large amount of ascites, with bowel sounds. No peritoneal signs. No palpable organomegaly or masses. Extremities: Normal skin color and turgor. No cyanosis, rash, ulceration, clubbing, or edema. Radial and pedal pulses are 2/4 bilaterally. Right elbow dressing intact. Neurological: Asterixis present. No focal deficits. Strength and sensation are grossly intact. - Labs CBC & Chem 7: 04/09/17 07:51 04/09/17 07:51 Labs: Abnormal Lab Results - Last 24 Hours (Table) 04/08/17 04/08/17 04/09/17 Range/Units 16:58 21:02 07:22 RBC (4.30-5.90) m/uL Hgb (13.0-17.5) gm/dL Hct (39.0-53.0) % RDW (11.5-15.5) % Plt Count (150-450) k/uL PT (9.0-12.0) sec Sodium (137-145) mmol/L Chloride (98-107) mmol/L Carbon Dioxide (22-30) mmol/L BUN (9-20) mg/dL POC Glucose (mg/dL) 103 H 125 H 109 H (75-99) mg/dL Calcium (8.4-10.2) mg/dL Ammonia (<30) umol/L 04/09/17 04/09/17 04/09/17 Range/Units 07:51 07:51 07:51 RBC 2.53 L (4.30-5.90) m/uL Hgb 7.5 L (13.0-17.5) gm/dL Hct 23.9 L (39.0-53.0) % RDW 21.9 H (11.5-15.5) % Plt Count 119 L (150-450) k/uL PT 15.3 H (9.0-12.0) sec Sodium 132 L (137-145) mmol/L Chloride 108 H (98-107) mmol/L Carbon Dioxide 18 L (22-30) mmol/L BUN 25 H (9-20) mg/dL POC Glucose (mg/dL) (75-99) mg/dL Calcium 7.4 L (8.4-10.2) mg/dL Ammonia (<30) umol/L 04/09/17 Range/Units 07:51 RBC (4.30-5.90) m/uL Hgb (13.0-17.5) gm/dL Hct (39.0-53.0) % RDW (11.5-15.5) % Plt Count (150-450) k/uL PT (9.0-12.0) sec Sodium (137-145) mmol/L Chloride (98-107) mmol/L Carbon Dioxide (22-30) mmol/L BUN (9-20) mg/dL POC Glucose (mg/dL) (75-99) mg/dL Calcium (8.4-10.2) mg/dL Ammonia 114 H (<30) umol/L Microbiology - Last 24 Hours (Table) 04/06/17 15:35 Urine Culture - Final Urine,Voided Enterococcus faecalis 04/06/17 13:59 Blood Culture - Preliminary Blood No Growth after 48 hours 04/07/17 12:29 Gram Stain - Preliminary Arm - Right Wound Culture - Preliminary Presumptive Staph aureus Assessment and Plan (1) Hepatic encephalopathy Narrative/Plan: Most likely exacerbated by wound in urine infection. Status: Acute (2) Chronic liver disease Narrative/Plan: possible cirrhosis Status: Acute (3) ETOH abuse Status: Acute (4) Cirrhosis Status: Acute (5) Acute blood loss anemia Status: Acute (6) Ascites due to chronic alcoholic hepatitis Status: Acute (7) Abscess of right arm Status: Acute Plan: 1. Continue Xifaxan 550 mg twice daily. 2. Continue Lactulose 30 g 4 times a day. 3. Ammonia level daily. 4. Inderal 10 mg 3 times a day for esophageal varices management. 5. Low-salt diet. 6. We'll continue to monitor. Assessment and plan of care discussed with Dr. Arzola.
[2017-04-09] MEDS: MULTIVITAMINS, THERA 1 EACH TAB PO SCH (11:50)
[2017-04-09] MEDS: FOLIC ACID 1 MG TAB PO SCH (11:51)
[2017-04-09] MEDS: THIAMINE 100 MG TAB PO SCH (11:52)
[2017-04-09 11:54] LABS: Glucose,Whole Blood 142 mg/dL (75-99)
--- NOTE | 2017-04-09 13:31 | CDI ---
In responding to this query, please exercise your independent professional judgment. The [facility] Coding Staff and Clinical Documentation Specialists appreciate your assistance in clarifying documentation, maintaining compliance with coding guidelines, accurately documenting patients condition and capturing severity of illness. The fact that a question is asked does not imply that any particular answer is desired or expected. Communication forms are a method of clarifying documentation and are not made part of the Legal Health Record. Thank you in advance for your clarification. Last Revision, September 2015 Janethtabitha Souza [address] [facility] [place] [address] Documentation Clarification Form Date: 04/08/2017 12:49:00 PM From: Shaunaelier Petercharity Admit Date: 04/05/2017 4:43:00 PM Patient Name: Brodie Douglass Visit Number: [id number] Dr. Marquez Pettit Per your progress notes/operative note, please clarify if a debridement was performed on 04/07/2017. Documentation included 'a knife was used to sharply excise skin, subcutaneous tissue and fascia'. History/Risk Factors: Abscess of right arm Clinical Indicators: Incision and Drainage of Abscess of right arm on 04/07 - tissue was excised Treatment: Irrigation Arm was packed open with gauze Five elements required for accurate and compliant documentation of a debridement : 1. Technique used (e.g., excisional, excised, cutting, etc.) 2. Instrument(s) used (e.g., scalpel, curette, etc.) 3. Nature of the tissue removed (e.g., necrotic, devitalized tissues, non- viable tissue, etc.) 4. Appearance and size of the wound (e.g., down to fresh bleeding tissue, 7cm x 10cm, etc.) 5. Depth of the debridement* (e.g., skin, subcutaneous tissue, fascia, muscle , bone, etc.) In order to capture the severity of condition and code the appropriate procedure could you please document the following: Excisional debridement (the removal of necrotic, devitalized tissue or slough by means of cutting away of tissue) Non-excisional debridement (the removal of necrotic, devitalized tissue or slough by means of flushing, brushing, or washing. (Irrigation) Other; with explanation for clinical findings Unable to determine (no explanation for clinical findings) Please document in your progress notes and discharge summary in order to capture severity of illness and risk of mortality. Include clinical findings that support your diagnosis. FYI: Press F11 to launch patient chart. Place X here if this finding has no clinical significance, is not applicable or if you are not able to provide any additional documentation. BARNEYD
--- NOTE | 2017-04-09 13:43 | XR ---
EXAMINATION TYPE: XR chest 2V DATE OF EXAM: 04/09/2017 1:40 PM HISTORY: Ascites. REFERENCE: Previous study dated 04/05/2017. FINDINGS: The lungs are clear. Pleural space are clear. Heart size is normal. IMPRESSION: NO ACUTE INTRATHORACIC ABNORMALITY.
[2017-04-09] MEDS: LEVOFLOXACIN 500 MG TAB PO SCH (16:13)
[2017-04-09 17:46] LABS: Glucose,Whole Blood 105 mg/dL (75-99)
[2017-04-09 20:12] LABS: Glucose,Whole Blood 127 mg/dL (75-99)
--- NOTE | 2017-04-09 20:26 | P.PN ---
Subjective Principal diagnosis: hepatic encephalopathy 56-year-old male with a long-standing history of alcohol abuse as well as bipolar depression history of stroke and COPD other medical conditions that includes diabetes hypertension and hypothyroidism presents to the emergency center with altered mental status. Is a known long-standing history of alcohol abuse and hospitalization for acute hepatitis from alcohol use recently. Presents with marked change of his status. He was having distinct encephalopathy. Worsening ascites. Apparently developed a worsening abscess to his right arm. This has now been taking the operating room and incised and drained. Cultures are pending. Infectious disease consult for antibiotic recommendations given his extensive past medical history. Patient is status post EGD. Evidence of bleeding and esophageal varices. Is being followed by gastroenterology. Has been some improvement today. Is doing well with the lactulose. Objective - Vital Signs Vital signs: Vital Signs Temp 98 F 04/09/17 15:00 Pulse 71 04/09/17 16:00 Resp 16 04/09/17 16:00 BP 93/56 04/09/17 15:00 Pulse Ox 98 04/09/17 15:00 Intake & Output 04/09/17 04/09/17 04/10/17 06:59 18:59 06:59 Intake Total 1380 1550 Output Total 950 2106 Balance 430 -556 Intake: Intake, IV Titration 500 950 Amount Sodium Chloride 0.9% 1, 500 000 ml @ 50 mls/hr IV . Q20H [facility] Rx#:[id number] Vancomycin 1,500 mg In 700 Sodium Chloride 0.9% 250 ml @ 125 mls/hr IVPB Q12H [facility] Rx#:[id number] Vancomycin 1,500 mg In 250 Sodium Chloride 0.9% 250 ml @ 125 mls/hr IVPB Q12H [facility] Rx#:[id number] Oral 880 600 Output: Urine 950 2100 Stool 6 Other: Voiding Method Urinal Urinal Diaper Diaper # Voids 3 3 # Bowel Movements 1 4 - Exam 56-year-old male who is mildly jaundiced his postoperative, with encephalopathy HEENT:mildly Icteric conjunctiva are pink and moist nasal mucosa grossly intact without significant lesions, there is no thrush. Neck: The neck is supple without significant lymphadenopathy or thyromegaly. Lungs: Good bilateral air entry without significant crackles or wheezing. There is no significant bronchial sounds. There is no egophony or dullness. Heart: Regular rate and rhythm with an audible S1-S2, no S3 no S4. There is no significant murmur click or rub, PMI was nondisplaced. Abdomen: Ascites is easily palpated. Organomegaly cannot be palpated. Abdomen does seem to be nontender. No palpable masses. Significant dilatated vessels of the abdominal wall. Extremities: The upper extremities have excellent pulses they are symmetric, no significant petechiae or telangiectasia. No splinter hemorrhages were noted. Lower extremity is evidence of trace edema. Peripheral pulses 2+ and symmetric. Neuro: The patient is now awake and alert. Still very poor historian - Labs CBC & Chem 7: 04/09/17 07:51 04/09/17 07:51 Labs: Abnormal Lab Results - Last 24 Hours (Table) 04/08/17 04/09/17 04/09/17 Range/Units 21:02 07:22 07:51 RBC 2.53 L (4.30-5.90) m/uL Hgb 7.5 L (13.0-17.5) gm/dL Hct 23.9 L (39.0-53.0) % RDW 21.9 H (11.5-15.5) % Plt Count 119 L (150-450) k/uL PT (9.0-12.0) sec Sodium (137-145) mmol/L Chloride (98-107) mmol/L Carbon Dioxide (22-30) mmol/L BUN (9-20) mg/dL POC Glucose (mg/dL) 125 H 109 H (75-99) mg/dL Calcium (8.4-10.2) mg/dL Ammonia (<30) umol/L 04/09/17 04/09/17 04/09/17 Range/Units 07:51 07:51 07:51 RBC (4.30-5.90) m/uL Hgb (13.0-17.5) gm/dL Hct (39.0-53.0) % RDW (11.5-15.5) % Plt Count (150-450) k/uL PT 15.3 H (9.0-12.0) sec Sodium 132 L (137-145) mmol/L Chloride 108 H (98-107) mmol/L Carbon Dioxide 18 L (22-30) mmol/L BUN 25 H (9-20) mg/dL POC Glucose (mg/dL) (75-99) mg/dL Calcium 7.4 L (8.4-10.2) mg/dL Ammonia 114 H (<30) umol/L 04/09/17 04/09/17 04/09/17 Range/Units 11:52 17:34 20:09 RBC (4.30-5.90) m/uL Hgb (13.0-17.5) gm/dL Hct (39.0-53.0) % RDW (11.5-15.5) % Plt Count (150-450) k/uL PT (9.0-12.0) sec Sodium (137-145) mmol/L Chloride (98-107) mmol/L Carbon Dioxide (22-30) mmol/L BUN (9-20) mg/dL POC Glucose (mg/dL) 142 H 105 H 127 H (75-99) mg/dL Calcium (8.4-10.2) mg/dL Ammonia (<30) umol/L Microbiology - Last 24 Hours (Table) 04/06/17 13:59 Blood Culture - Preliminary Blood No Growth after 72 hours 04/07/17 12:29 Anaerobic Culture - Preliminary Arm - Right 04/07/17 12:29 Gram Stain - Final Arm - Right Wound Culture - Final Staphylococcus aureus 04/06/17 15:35 Urine Culture - Final Urine,Voided Enterococcus faecalis Laboratory Results WBC 7.5 k/uL (3.8-10.6) 04/09/17 07:51 RBC 2.53 m/uL (4.30-5.90) L 04/09/17 07:51 Hgb 7.5 gm/dL (13.0-17.5) L 04/09/17 07:51 Hct 23.9 % (39.0-53.0) L 04/09/17 07:51 MCV 94.4 fL (80.0-100.0) 04/09/17 07:51 MCH 29.5 pg (25.0-35.0) 04/09/17 07:51 MCHC 31.2 g/dL (31.0-37.0) 04/09/17 07:51 RDW 21.9 % (11.5-15.5) H 04/09/17 07:51 Plt Count 119 k/uL (150-450) L 04/09/17 07:51 Neutrophils % 65 % 04/09/17 07:51 Lymphocytes % 19 % 04/09/17 07:51 Monocytes % 12 % 04/09/17 07:51 Eosinophils % 1 % 04/09/17 07:51 Basophils % 0 % 04/09/17 07:51 Neutrophils # 4.8 k/uL (1.3-7.7) 04/09/17 07:51 Lymphocytes # 1.4 k/uL (1.0-4.8) 04/09/17 07:51 Monocytes # 0.9 k/uL (0-1.0) 04/09/17 07:51 Eosinophils # 0.1 k/uL (0-0.7) 04/09/17 07:51 Basophils # 0.0 k/uL (0-0.2) 04/09/17 07:51 Manual Slide Review Performed 04/07/17 07:37 Polychromasia Present 04/07/17 07:37 Hypochromasia Slight 04/09/17 07:51 Poikilocytosis Slight 04/09/17 07:51 Poikilocytosis (manual Present 04/07/17 07:37 Anisocytosis Moderate 04/09/17 07:51 Macrocytosis Slight 04/09/17 07:51 PT 15.3 sec (9.0-12.0) H 04/09/17 07:51 INR 1.6 (<1.1) 04/09/17 07:51 APTT 25.5 sec (22.0-30.0) 04/05/17 14:00 Sodium 132 mmol/L (137-145) L 04/09/17 07:51 Potassium 3.7 mmol/L (3.5-5.1) 04/09/17 07:51 Chloride 108 mmol/L (98-107) H 04/09/17 07:51 Carbon Dioxide 18 mmol/L (22-30) L 04/09/17 07:51 Anion Gap 6 mmol/L 04/09/17 07:51 BUN 25 mg/dL (9-20) H 04/09/17 07:51 Creatinine 0.88 mg/dL (0.66-1.25) 04/09/17 07:51 Est GFR (MDRD) Af Amer >60 (>60 ml/min/1.73 sqM) 04/09/17 07:51 Est GFR (MDRD) Non-Af >60 (>60 ml/min/1.73 sqM) 04/09/17 07:51 Glucose 86 mg/dL (74-99) 04/09/17 07:51 POC Glucose (mg/dL) 127 mg/dL (75-99) H 04/09/17 20:09 POC Glu Email Designer Shameka Christianson 04/09/17 20:09 Calcium 7.4 mg/dL (8.4-10.2) L 04/09/17 07:51 Total Bilirubin 1.5 mg/dL (0.2-1.3) H 04/05/17 14:00 AST 59 U/L (17-59) 04/05/17 14:00 ALT 36 U/L (21-72) 04/05/17 14:00 Alkaline Phosphatase 107 U/L (38-126) 04/05/17 14:00 Ammonia 114 umol/L (<30) H 04/09/17 07:51 Total Creatine Kinase 29 U/L (55-170) L 04/05/17 14:00 CK-MB (CK-2) 0.6 ng/mL (0.0-2.4) 04/05/17 14:00 CK-MB (CK-2) Rel Index 2.1 04/05/17 14:00 Troponin I <0.012 ng/mL (0.000-0.034) 04/05/17 14:00 Total Protein 7.3 g/dL (6.3-8.2) 04/05/17 14:00 Albumin 2.9 g/dL (3.5-5.0) L 04/05/17 14:00 Tumor Marker AFP 3.4 ng/mL (0.0-7.9) 04/06/17 11:50 Urine Color Yellow 04/05/17 15:18 Urine Appearance Clear (Clear) 04/05/17 15:18 Urine pH 6.0 (5.0-8.0) 04/05/17 15:18 Ur Specific [place] 1.013 (1.001-1.035) 04/05/17 15:18 Urine Protein Negative (Negative) 04/05/17 15:18 Urine Glucose (UA) Negative (Negative) 04/05/17 15:18 Urine Ketones Negative (Negative) 04/05/17 15:18 Urine Blood Negative (Negative) 04/05/17 15:18 Urine Nitrite Negative (Negative) 04/05/17 15:18 Urine Bilirubin Negative (Negative) 04/05/17 15:18 Urine Urobilinogen 3.0 mg/dL (<2.0) 04/05/17 15:18 Ur Leukocyte Esterase Negative (Negative) 04/05/17 15:18 Urine Opiates Screen Not Detected (NotDetected) 04/05/17 15:18 Ur Oxycodone Screen Not Detected (NotDetected) 04/05/17 15:18 Urine Methadone Screen Not Detected (NotDetected) 04/05/17 15:18 Ur Propoxyphene Screen Not Detected (NotDetected) 04/05/17 15:18 Ur Barbiturates Screen Not Detected (NotDetected) 04/05/17 15:18 U Tricyclic Antidepress Not Detected (NotDetected) 04/05/17 15:18 Ur Phencyclidine Scrn Not Detected (NotDetected) 04/05/17 15:18 Ur Amphetamines Screen Not Detected (NotDetected) 04/05/17 15:18 U Methamphetamines Scrn Not Detected (NotDetected) 04/05/17 15:18 U Benzodiazepines Scrn Not Detected (NotDetected) 04/05/17 15:18 Urine Cocaine Screen Not Detected (NotDetected) 04/05/17 15:18 U Marijuana (THC) Screen Not Detected (NotDetected) 04/05/17 15:18 Serum Alcohol <10 mg/dL 04/05/17 14:00 Blood Type A Negative 04/05/17 14:00 Blood Type Confirm A Negative 04/05/17 17:20 Blood Type Recheck CABO Indicated 04/05/17 14:00 Antibody Screen NEGATIVE 04/05/17 14:00 Crossmatch See Detail 04/05/17 14:00 Spec Expiration Date 04/08/2017 - 229904/05/17 14:00 Microbiology 04/06/17 13:59 Blood Blood Culture - Preliminary No Growth after 72 hours 04/07/17 12:29 Arm - Right Anaerobic Culture - Preliminary 04/07/17 12:29 Arm - Right Gram Stain - Final 04/07/17 12:29 Arm - Right Wound Culture - Final Staphylococcus aureus 04/06/17 15:35 Urine,Voided Urine Culture - Final Enterococcus faecalis Assessment and Plan (1) Hepatic encephalopathy Narrative/Plan: 56-year-old male presents to Hospital altered mental status. His known history of extensive alcohol abuse. Is a known history of alcoholic hepatitis. Presents now with significant hepatic encephalopathy has been seen by gastroenterology treatment is being utilized. Patient did develop significant abscess to his right arm. Is now status post incision and drainage. Dressing is not removed since just a few hours and surgery. Patient is quite comfortable despite time again is quite encephalopathic. had evidence of some asterixis yesterday Now improved. Patient does have leukocytosis likely due to the multiple processes at this time including abscess to his arm. He has significant anemia. Vancomycin therapy is added to current antibiotics with concerns with his history of prior hospitalization . MSSA has been isolated from the arm ulcer, enterococcus from the urine. With his penicillin ALLERGY of unclear severity vancomycin will be continued and plan for the next period time. Cultures are negative. Status: Acute (2) Abscess of right arm Status: Acute (3) Leukocytosis Status: Acute
--- NOTE | 2017-04-09 20:29 | PN ---
DATE OF SERVICE: 04/09/2017 This 56-year-old gentleman admitted with change in mental status and acute hepatic encephalopathy is being closely monitored at this time. The patient had some abscess and hematoma formation which was incised, and the patient has multiple organisms grown from the culture. Wound culture is showing MSSA and the urine culture is showing Enterococcus faecalis which was vancomycin-sensitive. The patient is being closely monitored at this time. The patient still has some change in mental status. Past medical history reviewed. REVIEW OF SYSTEMS: CARDIOVASCULAR SYSTEM: No angina, palpitations. RESPIRATORY SYSTEM: As mentioned earlier. GI: As mentioned earlier. : No dysuria. NERVOUS SYSTEM: No numbness or weakness. Current medications are reviewed and include: 1. Monitor 5 mg q.6 p.r.n. 2. Norvasc 10 mg daily. 3. Folic acid 1 mg daily. 4. Lasix 60 mg b.i.d. 5. Cephulac 30 mg daily. 6. Levaquin 500 mg daily. 7. Synthroid 75 mcg p.o. daily and 100 mcg p.o. daily. 8. Magnesium oxide 400 mg p.o. t.i.d. 9. Glucophage 500 mg b.i.d. 10. Remeron 45 mg p.o. at bedtime. 11. Multivitamins 1 p.o. daily. 12. Habitrol 14 daily. 13. Nitrostat 0.4 sublingually p.r.n. 14. Protonix 40 mg IV b.i.d. 15. Vitamin K 5 mg p.o. daily. 16. Pravachol 40 mg at bedtime. 17. Inderal 10 mg p.o. t.i.d. 18. Seroquel 400 mg at bedtime. 19. Xifaxan 50 mg p.o. b.i.d. 20. Senokot 8.6 mg p.o. b.i.d. 21. Aldactone 100 mg p.o. b.i.d. 22. Vitamin B1 100 mg p.o. daily. 23. Vancomycin ( ) mg IV b.i.d. PHYSICAL EXAMINATION: Patient is alert and oriented x3. Pulse 64, blood pressure 93/56, respiration 18, temperature 98 degrees, pulse ox 98% on room air. HEENT: Conjunctivae normal. NECK: No jugular venous distention. CARDIOVASCULAR SYSTEM: S1, S2 muffled. RESPIRATORY SYSTEM: Breath sounds diminished at the bases. Scattered rhonchi. No crackles. ABDOMEN: Soft, nontender. No mass palpable. Mild diffuse distention. Minimal ascites. LEGS: Minimal edema. NERVOUS SYSTEM: Diffusely weak. Hepatic flap is still present. LABS: WBC 7.5, hemoglobin 7.5. INR is 1.6. Ammonia 114. ASSESSMENT: 1. Change in mental status with acute metabolic encephalopathy, hepatic encephalopathy secondary to hyperammonemia and chronic liver disease and cirrhosis of the liver secondary to alcohol. 2. Abscess and hematoma of the right elbow, status post incision and drainage. 3. Methicillin-susceptible Staphylococcus aureus from the wound culture and vancomycin-sensitive Enterococcus faecalis from the urine. 4. Alcoholic liver disease with chronic liver disease. 5. Increased white count. 6. Anemia, normocytic. 7. Coagulopathy secondary to chronic liver disease. 8. Increased random blood sugar. 9. Hyperbilirubinemia. 10. Hypoalbuminemia with mild to moderate protein-calorie malnutrition. 11. History of cerebrovascular accident, transient ischemic attack. 12. History of chronic obstructive pulmonary disease. 13. History of diabetes mellitus, type 2. 14. Hypertension, essential. 15. Hypothyroidism. 16. History of right kidney surgery. 17. Bilateral knee surgery with degenerative joint disease. 18. Bipolar depression not otherwise specified. 19. History of nicotine dependence. 20. Gastric varices and portal gastropathy. 21. FULL CODE. RECOMMENDATIONS AND DISCUSSION: I recommend to continue with the current medications, continue with the monitoring, symptomatic treatment, increase the dose of lactulose. Avoid sedatives. Guarded prognosis because of multiple complex medical issues. Further recommendations to follow. Patient is started on vancomycin.
[2017-04-09] MEDS: PRAVASTATIN SODIUM 40 MG TAB PO SCH (20:52)
[2017-04-09] MEDS: QUEtiapine 400 MG TAB PO SCH (21:51)
[2017-04-09] MEDS: MIRTAZAPINE 45 MG TABLET PO SCH (21:51)
[2017-04-10] MEDS: LEVOTHYROXINE 75 MCG TAB PO SCH (06:10)
[2017-04-10] MEDS: LEVOTHYROXINE 100 MCG TAB PO SCH (06:10)
[2017-04-10 07:37] LABS: Glucose,Whole Blood 85 mg/dL (75-99)
[2017-04-10 07:57] LABS: Anisocytosis Moderate; Basophils % (A) 0 %; CH 30.4; CHCM 32.7; Eosinophils # (A) 0.1 k/uL (0-0.7); Eosinophils % (A) 2 %; HGB 7.7 gm/dL (13.0-17.5); Hypochromasia Slight; INR 1.5 (<1.1); Luc # (Auto) 0.27; Luc % (Auto) 4; Lymphocytes # (A) 1.3 k/uL (1.0-4.8); Lymphocytes % (A) 18 %; MCH 30.3 pg (25.0-35.0); MCHC 32.1 g/dL (31.0-37.0); MCV 94.2 fL (80.0-100.0); Macrocytosis Slight; Mean Platelet Volume 7.9; Monocytes # (A) 0.9 k/uL (0-1.0); Monocytes % (A) 13 %; Neutrophils # (A) 4.7 k/uL (1.3-7.7); Neutrophils % (A) 64 %; Poikilocytosis Slight; Prothrombin Time 14.5 sec (9.0-12.0); RBC 2.55 m/uL (4.30-5.90); RDW 21.3 % (11.5-15.5); WBC 7.3 k/uL (3.8-10.6); WBC (Perox) 6.98
[2017-04-10] MEDS: amLODIPine 10 MG TAB PO SCH (08:00)
[2017-04-10] MEDS ORDERED: VANCOMYCIN TROUGH DUE 1 EACH MISC MISCELLANE ONE (08:00)
[2017-04-10 08:19] LABS: Anion Gap 5 mmol/L; Blood Urea Nitrogen 21 mg/dL (9-20); Calcium 7.5 mg/dL (8.4-10.2); Carbon Dioxide 19 mmol/L (22-30); Chloride 107 mmol/L (98-107); Glucose 72 mg/dL (74-99); Magnesium 2.2 mg/dL (1.6-2.3); Non-African American GFR(MDRD) >60 (>60 ml/min/1.73 sqM); Potassium 3.6 mmol/L (3.5-5.1); Sodium 131 mmol/L (137-145)
[2017-04-10] MEDS: NICOTINE 14MG/24HR PATCH TRANSDERM SCH (08:40)
[2017-04-10] MEDS: LACTULOSE 20 GM/30 ML CUP PO SCH ×4 (08:40→20:05)
[2017-04-10] MEDS: PANTOPRAZOLE 40 MG/10 ML VIAL IVP SCH ×2 (08:41→20:06)
[2017-04-10] MEDS: RIFAXIMIN 550 MG TABLET PO SCH ×2 (08:41→20:06)
[2017-04-10] MEDS: PROPRANOLOL 10 MG TAB PO SCH ×3 (08:41→20:06)
[2017-04-10] MEDS: FUROSEMIDE 20 MG TAB PO SCH ×2 (08:41→16:25)
[2017-04-10] MEDS: SPIRONOLACTONE 25 MG TAB PO SCH ×2 (08:42→20:07)
[2017-04-10] MEDS: MAGNESIUM OXIDE 400 MG TAB PO SCH ×3 (08:42→20:06)
[2017-04-10] MEDS: metFORMIN 500 MG TAB PO SCH ×2 (08:42→20:06)
[2017-04-10] MEDS: HYDROcodone/APAP 5-325MG 1 EACH TAB PO PRN (08:51)
[2017-04-10] MEDS: VANCOMYCIN 1,500 MG in SODIUM CHLORIDE 0.9% 250 ML IVPB SCH ×2 (09:30→20:05)
[2017-04-10 10:08] LABS: Polychromasia Present; Target Cells Present
[2017-04-10] MEDS: PHYTONADIONE ORAL 5 MG/5 ML ORAL.SYRG PO SCH (10:24)
[2017-04-10] MEDS: THIAMINE 100 MG TAB PO SCH (12:00)
[2017-04-10] MEDS: MULTIVITAMINS, THERA 1 EACH TAB PO SCH (12:00)
[2017-04-10] MEDS: FOLIC ACID 1 MG TAB PO SCH (12:00)
[2017-04-10 12:15] LABS: Glucose,Whole Blood 120 mg/dL (75-99)
[2017-04-10] MEDS: LEVOFLOXACIN 500 MG TAB PO SCH (16:25)
[2017-04-10 16:45] LABS: Glucose,Whole Blood 120 mg/dL (75-99)
--- NOTE | 2017-04-10 17:30 | PN ---
DATE OF SERVICE: 04/10/2017 Patient is a 56-year-old white male with history of alcoholic cirrhosis of the liver with portal hypertension, ascites and hepatic encephalopathy, admitted to the hospital with hepatic encephalopathy and gastrointestinal bleed. He had an upper endoscopy done 5 days ago that showed evidence of gastric and esophageal varices, but no active bleeding. Presently on Lasix 60 mg twice daily and spironolactone 100 mg twice daily for ascites. He is also on oral lactulose and Xifaxan for hepatic encephalopathy. He is feeling much better today. He is awake and oriented. He denies any symptoms. On physical examination, he appears comfortable in no apparent distress. Vitals as are stable. Blood pressure 193/56, pulse rate 64, temperature 98.7. HEENT unremarkable. Conjunctivae pink. Sclerae anicteric. Oral cavity, no lesions. NECK: No JVD. No lymph node enlargement. CHEST: Clear to auscultation. HEART: Regular rate and rhythm. ABDOMEN: Soft. Bowel sounds are positive. No organomegaly. EXTREMITIES: No pedal edema. SKIN: No rashes. NEURO: He is alert, and oriented x3. No focal deficits. ABDOMEN: Slightly distended. There was some free fluid noted. EXTREMITIES: No pedal edema. NEURO: Alert and oriented x2. No focal deficits. Labs done from today: WBC 7.3, hemoglobin 7.7, platelets 118, BUN is 21, creatinine 0.9, sodium 131, potassium 3.6, chloride 107, CO2 19. IMPRESSION: 1. Alcoholic cirrhosis of the liver with portal hypertension. 2. Ascites on Lasix 60 b.i.d. and Aldactone 100 b.i.d., gradually improving. 3. Hepatic encephalopathy on lactulose and oral Xifaxan and hepatic encephalopathy, resolved. Ammonia level is down to 35 today. 4. Generalized weakness. RECOMMENDATIONS: At this time, continue with the current diuretic regimen. Continue with oral Xifaxan as well as oral lactulose. Continue with a low salt diet and will follow him closely during his hospital stay. Thank you for this consultation.
[2017-04-10] MEDS: SODIUM CHLORIDE 0.9% 1,000 ML IV SCH (17:31)
[2017-04-10] MEDS: MIRTAZAPINE 45 MG TABLET PO SCH (20:06)
[2017-04-10] MEDS: PRAVASTATIN SODIUM 40 MG TAB PO SCH (20:06)
[2017-04-10] MEDS: QUEtiapine 400 MG TAB PO SCH (20:06)
[2017-04-10 20:13] LABS: Glucose,Whole Blood 109 mg/dL (75-99)
[2017-04-11] MEDS: LEVOTHYROXINE 100 MCG TAB PO SCH (06:17)
[2017-04-11] MEDS: LEVOTHYROXINE 75 MCG TAB PO SCH (06:17)
[2017-04-11 07:41] LABS: Glucose,Whole Blood 109 mg/dL (75-99)
[2017-04-11] MEDS: LACTULOSE 20 GM/30 ML CUP PO SCH ×4 (08:28→20:53)
[2017-04-11] MEDS: PANTOPRAZOLE 40 MG/10 ML VIAL IVP SCH ×2 (08:28→20:52)
[2017-04-11] MEDS: RIFAXIMIN 550 MG TABLET PO SCH ×2 (08:28→20:53)
[2017-04-11] MEDS: FUROSEMIDE 20 MG TAB PO SCH ×2 (08:28→17:26)
[2017-04-11] MEDS: SPIRONOLACTONE 25 MG TAB PO SCH ×2 (08:28→20:53)
[2017-04-11] MEDS: NICOTINE 14MG/24HR PATCH TRANSDERM SCH (08:29)
[2017-04-11] MEDS: MAGNESIUM OXIDE 400 MG TAB PO SCH ×3 (08:29→20:54)
[2017-04-11] MEDS: metFORMIN 500 MG TAB PO SCH ×2 (08:29→20:51)
[2017-04-11] MEDS: PROPRANOLOL 10 MG TAB PO SCH ×3 (08:29→22:39)
[2017-04-11] MEDS: VANCOMYCIN 1,500 MG in SODIUM CHLORIDE 0.9% 250 ML IVPB SCH ×2 (08:35→22:38)
[2017-04-11] MEDS: amLODIPine 10 MG TAB PO SCH (09:00)
[2017-04-11 09:18] LABS: INR 1.4 (<1.1); Prothrombin Time 14.1 sec (9.0-12.0)
[2017-04-11 09:21] LABS: Anisocytosis Moderate; Basophils % (A) 0 %; CH 29.6; CHCM 31.3; Eosinophils # (A) 0.2 k/uL (0-0.7); Eosinophils % (A) 2 %; HCT 26.7 % (39.0-53.0); HDW 3.64; HGB 8.2 gm/dL (13.0-17.5); Hypochromasia Moderate; Luc # (Auto) 0.26; Luc % (Auto) 3; Lymphocytes # (A) 0.9 k/uL (1.0-4.8); Lymphocytes % (A) 10 %; MCH 29.5 pg (25.0-35.0); MCHC 30.9 g/dL (31.0-37.0); MCV 95.4 fL (80.0-100.0); Macrocytosis Slight; Monocytes % (A) 10 %; Neutrophils # (A) 7.4 k/uL (1.3-7.7); Neutrophils % (A) 76 %; Poikilocytosis Slight; RDW 20.1 % (11.5-15.5); WBC 9.8 k/uL (3.8-10.6); WBC (Perox) 10.08
[2017-04-11 09:35] LABS: Anion Gap 8 mmol/L; Blood Urea Nitrogen 16 mg/dL (9-20); Calcium 7.7 mg/dL (8.4-10.2); Carbon Dioxide 17 mmol/L (22-30); Chloride 110 mmol/L (98-107); Glucose 95 mg/dL (74-99); Non-African American GFR(MDRD) >60 (>60 ml/min/1.73 sqM); Potassium 3.5 mmol/L (3.5-5.1); Sodium 135 mmol/L (137-145)
[2017-04-11] MEDS: PHYTONADIONE ORAL 5 MG/5 ML ORAL.SYRG PO SCH (10:05)
[2017-04-11] MEDS: THIAMINE 100 MG TAB PO SCH (12:00)
[2017-04-11 12:05] LABS: Glucose,Whole Blood 134 mg/dL (75-99)
[2017-04-11] MEDS: MULTIVITAMINS, THERA 1 EACH TAB PO SCH (12:08)
[2017-04-11] MEDS: FOLIC ACID 1 MG TAB PO SCH (12:09)
[2017-04-11] MEDS: ARTIFICIAL TEARS-HYPROMELLOSE DROPS 15 ML BTL BOTH EYES PRN (12:09)
--- NOTE | 2017-04-11 15:05 | PN ---
DATE OF SERVICE: 04/10/2017 This is a 56-year-old gentleman who was admitted with change in mental status as well as acute metabolic encephalopathy, is improving significantly. The patient is having increased bowel movements at this time. Ammonia is improved to 35 from 114 yesterday. No chest pain, no palpitations, no fever. On exam, alert and oriented x3. Pulse 66, blood pressure 108/63, respirations 16, temperature 97.7, pulse ox 99% on room air. HEENT: Conjunctivae normal. Oral mucosa moist. NECK: No JVD. No carotid bruits. CARDIOVASCULAR: S1 and S2. Tachycardic. LUNGS: Breath sounds diminished at the bases. Few scattered rhonchi and crackles. ABDOMEN: Soft, minimal distention. Minimal ascites present. EXTREMITIES: No edema. NERVOUS SYSTEM: No focal deficits. LABS: WBC 7.7, hemoglobin 7.7 and INR is 1.5. ASSESSMENT: 1. Change in mental status with acute metabolic encephalopathy and hepatic encephalopathy secondary to hyperammonemia and chronic liver disease and cirrhosis of the liver secondary to alcohol. 2. Mass with abscess/hematoma of the right elbow, status post incision and drainage. Abscess growing MSSA from the wound culture and enterococcus faecalis from the urine. 3. Alcoholic liver disease with chronic liver disease. 4. Increased WBC. 5. Anemia, normocytic. 6. Coagulopathy secondary to chronic liver disease. 7. Increased random blood sugar. 8. Hyperbilirubinemia. 9. Hypoalbuminemia with mild to moderate protein calorie malnutrition. 10. History of cerebrovascular accident, transient ischemic attack. 11. History of COPD. 12. History of diabetes mellitus type 2. 13. Hypertension, essential. 14. Hypothyroidism. 15. History of right kidney surgery. 16. Bilateral knee surgery. 17. Bilateral knee surgery with degenerative joint disease. 18. Bipolar depression, not otherwise specified. 19. History of nicotine dependence. 20. Gastric bypass and possible portal gastropathy with portal hypertension. 21. FULL CODE. RECOMMENDATIONS/DISCUSSION: In this 56-year-old gentleman who presented with multiple complex medical issues, we will monitor the patient closely. Continue current medications and symptomatic treatment. Continue IV antibiotics. Cultures as detailed above. Closely monitor. Further recommendations to follow. Prognosis guarded. See orders for details. The ammonia is improving as mentioned earlier. Discussed with family.
[2017-04-11] MEDS: LEVOFLOXACIN 500 MG TAB PO SCH (17:26)
[2017-04-11 17:46] LABS: Glucose,Whole Blood 128 mg/dL (75-99)
[2017-04-11] MEDS: SODIUM CHLORIDE 0.9% 1,000 ML IV SCH (18:13)
[2017-04-11] MEDS: MIRTAZAPINE 45 MG TABLET PO SCH (20:52)
[2017-04-11] MEDS: PRAVASTATIN SODIUM 40 MG TAB PO SCH (20:52)
[2017-04-11] MEDS: QUEtiapine 400 MG TAB PO SCH (20:53)
[2017-04-11 21:25] LABS: Glucose,Whole Blood 132 mg/dL (75-99)
[2017-04-12] MEDS: HYDROcodone/APAP 5-325MG 1 EACH TAB PO PRN (05:52)
[2017-04-12] MEDS: LEVOTHYROXINE 100 MCG TAB PO SCH (06:27)
[2017-04-12] MEDS: LEVOTHYROXINE 75 MCG TAB PO SCH (06:27)
[2017-04-12 07:33] LABS: Glucose,Whole Blood 132 mg/dL (75-99)
[2017-04-12 08:52] LABS: Anisocytosis Slight; Aty Lym Flag Slight; CH 29.7; CHCM 31.2; HCT 25.2 % (39.0-53.0); HDW 3.55; HGB 7.7 gm/dL (13.0-17.5); Hypochromasia Moderate; MCH 29.4 pg (25.0-35.0); MCHC 30.7 g/dL (31.0-37.0); MCV 95.8 fL (80.0-100.0); Macrocytosis Slight; Mean Platelet Volume 8.2; Poikilocytosis Slight; RBC 2.63 m/uL (4.30-5.90); RDW 19.6 % (11.5-15.5); WBC 8.3 k/uL (3.8-10.6); WBC (Perox) 8.71
[2017-04-12] MEDS: amLODIPine 10 MG TAB PO SCH (09:00)
[2017-04-12] MEDS: VANCOMYCIN 1,500 MG in SODIUM CHLORIDE 0.9% 250 ML IVPB SCH (09:11)
[2017-04-12] MEDS: NICOTINE 14MG/24HR PATCH TRANSDERM SCH (09:12)
[2017-04-12] MEDS: RIFAXIMIN 550 MG TABLET PO SCH (09:12)
[2017-04-12] MEDS: LACTULOSE 20 GM/30 ML CUP PO SCH ×2 (09:12→12:33)
[2017-04-12] MEDS: PANTOPRAZOLE 40 MG/10 ML VIAL IVP SCH (09:13)
[2017-04-12] MEDS: SPIRONOLACTONE 25 MG TAB PO SCH (09:13)
[2017-04-12] MEDS: FUROSEMIDE 20 MG TAB PO SCH (09:13)
[2017-04-12] MEDS: ARTIFICIAL TEARS-HYPROMELLOSE DROPS 15 ML BTL BOTH EYES PRN (09:14)
[2017-04-12] MEDS: PROPRANOLOL 10 MG TAB PO SCH (09:14)
[2017-04-12] MEDS: metFORMIN 500 MG TAB PO SCH (09:15)
[2017-04-12] MEDS: MAGNESIUM OXIDE 400 MG TAB PO SCH (09:15)
[2017-04-12 09:22] LABS: Anion Gap 6 mmol/L; Blood Urea Nitrogen 14 mg/dL (9-20); Calcium 7.2 mg/dL (8.4-10.2); Carbon Dioxide 17 mmol/L (22-30); Chloride 111 mmol/L (98-107); Glucose 97 mg/dL (74-99); Non-African American GFR(MDRD) >60 (>60 ml/min/1.73 sqM); Potassium 3.6 mmol/L (3.5-5.1); Sodium 134 mmol/L (137-145)
[2017-04-12 10:53] LABS: Add Differential Manual Differential
[2017-04-12 10:54] VITALS: BP 100/46; PULSE 70; RESP 18; TEMP 97
[2017-04-12 10:59] LABS: Nucleated Red Blood Cells 0 /100 WBC (0-0); Total Cells Counted 100
[2017-04-12 11:01] LABS: Polychromasia Present
[2017-04-12 11:47] LABS: Glucose,Whole Blood 124 mg/dL (75-99)
--- NOTE | 2017-04-12 12:03 | PN ---
DATE OF SERVICE: 04/11/2017 This 56-year-old gentleman who was admitted with change in mental status, metabolic encephalopathy is improving significantly. No chest pain or palpitation. The patient complained of some weakness. PT, OT is evaluating the patient and following the patient closely. The patient has alcoholic cirrhosis. On exam, alert and oriented x3. Pulse is 76, blood pressure 103/51, respirations 16, temperature 98.2, pulse ox 97% on room air. HEENT: Conjunctivae normal. NECK: No jugular venous distention. CARDIOVASCULAR: S1 and S2, muffled. RESPIRATORY: Breath sounds diminished at the bases. A few scattered rhonchi, no crackles. ABDOMEN: Soft, obese. Ascites present. LEGS: Minimal edema. NERVOUS SYSTEM: No focal deficits. LABS: Hemoglobin 8.2. Sodium 135. Ammonia is 46. ASSESSMENT: 1. Change in mental status with acute metabolic encephalopathy and hepatic encephalopathy secondary hyperammonemia and chronic liver disease cirrhosis of the liver secondary to alcohol. 2. Abscess, hematoma of the right elbow, status post incision and drainage showing methicillin-susceptible Staphylococcus aureus. 3. Enterococcus faecalis vancomycin sensitive from the urine culture. 4. Alcoholic liver disease with chronic liver disease. 5. Increased WBC. 6. Anemia, normocytic. 7. Coagulopathy secondary to chronic liver disease and cirrhosis of the liver. 8. Increased random blood sugar. 9. Hyperbilirubinemia secondary from chronic liver disease. 10. Hypoalbuminemia with mild to moderate protein calorie malnutrition. 11. History of cerebrovascular accident, transient ischemic attack. 12. History of chronic obstructive pulmonary disease. 13. History of diabetes type 2. 14. Hypertension, essential. 15. Hypothyroidism. 16. History of right kidney surgery. 17. Bilateral knee surgery with degenerative joint disease. 18. Bipolar depression, not otherwise specified. 19. History of nicotine dependence. 20. Portal gastropathy and portal hypertension. 21. FULL CODE. RECOMMENDATIONS AND DISCUSSION: This 56-year-old gentleman who presented with multiple complex medical issues. Will monitor the patient closely. Continue the current medications. Continue symptomatic treatment. Otherwise, repeat labs. Continue the current dose of medications and increase ambulation. Further recommendations to follow. MTDD
[2017-04-12] MEDS: FOLIC ACID 1 MG TAB PO SCH (12:33)
[2017-04-12] MEDS: MULTIVITAMINS, THERA 1 EACH TAB PO SCH (12:33)
[2017-04-12] MEDS: THIAMINE 100 MG TAB PO SCH (12:34)
--- NOTE | 2017-04-14 17:57 | DS ---
DATE OF ADMISSION: 04/05/2017 DATE OF DISCHARGE: 04/12/2017 FINAL DIAGNOSES: 1. Change in mental status with acute metabolic encephalopathy and hepatic secondary to hyperammonemia as well as chronic liver disease and cirrhosis of the liver secondary to ETOH. 2. Abscess and hematoma of the right elbow status post incision and drainage, Methicillin-susceptible Staph aureus. 3. Enterococcus faecalis Vancomycin from the urine culture. 4. Alcoholic liver disease with chronic liver disease. 5. Increased WBC. 6. Anemia, normocytic. 7. Coagulopathy secondary chronic liver disease and cirrhosis of the liver. 8. Increased random blood sugar. 9. Hyperbilirubinemia secondary from chronic liver disease. 10. Hypoalbuminemia with mild to moderate protein calorie malnutrition. 11. History of cerebrovascular accident, transient ischemic attack. 12. History of chronic obstructive pulmonary disease. 13. History of diabetes type 2. 14. History of hypertension, essential. 15. Hypothyroidism. 16. Right knee surgery. 17. Bilateral knee surgery with degenerative joint disease. 18. Bipolar depression, not otherwise specified. 19. History of nicotine dependence. 20. Portal gastropathy and portal hypertension. 21. FULL CODE. DISCHARGE DISPOSITION: The patient will be discharged in stable condition with guarded prognosis. Total time taken 35 minutes. HISTORY OF PRESENT ILLNESS: This 56 -year-old gentleman with a past medical history of multiple medical problems including change in mental status, hypoammonemia. The patient was given lactulose. Multiple bowel movements and ammonia also improved. Currently ammonia hovering around 50 to 68 with maintaining in mental status changes. Otherwise, on exam, vital signs are stable. CARDIOVASCULAR: S1, S2 muffled. A few scattered rhonchi. Abdomen is ascites. Legs minimal edema. Central nervous system: No focal deficits. LABS: Hemoglobin 7.7, ammonia 67 and 89 as mentioned earlier. DISCHARGE ADVICE AND MEDICATIONS: 1. Diet: Hepatic low protein activity as tolerated. 2. Follow up with Dr. Tan in 2 to 3 days. 3. CBC, CMP, follow up with Dr. Arzola as recommended. 4. The home medications are as follows: 5. Artificial tears, one drop b.i.d. 6. Iron sulfate 325 mg p.o. b.i.d. 7. Folic acid 1 mg p.o. daily. 8. Lasix 60 mg p.o. b.i.d. 9. Lactulose 30 mL q.i.d. Titrate 2 to 3 bowel movements per day. Discussed with the patient. 10. Synthroid 175 mcg p.o. daily. 11. Magnesium oxide 400 mg p.o. t.i.d. 12. Remeron 45 mg q.h.s. 13. Multivitamin 1 p.o. daily. 14. Habitrol 14 daily. 15. Nitro 0.4 sublingual p.r.n. 16. Vitamin K 5 mg p.o. daily. 17. Pravachol 40 mg p.o. daily. 18. Inderal 10 mg p.o. t.i.d. 19. Seroquel 400 mg q.h.s. 20. xifaxan 550 mg p.o. b.i.d. for a month. 21. Senokot 8.6 mg daily. 22. Aldactone 100 mg p.o. b.i.d. 23. Thiamine 100 mg p.o. daily. 24. Norvasc 10 mg p.o. daily. 25. Glucophage 500 mg p.o. b.i.d. 26. results to Dr. Tan. Once again, the patient will be discharged in a stable condition with guarded prognosis. [facility]
--- NOTE | 2017-04-16 12:41 | CDI ---
In responding to this query, please exercise your independent professional judgment. The [facility] Coding Staff and Clinical Documentation Specialists appreciate your assistance in clarifying documentation, maintaining compliance with coding guidelines, accurately documenting patients condition and capturing severity of illness. The fact that a question is asked does not imply that any particular answer is desired or expected. Communication forms are a method of clarifying documentation and are not made part of the Legal Health Record. Thank you in advance for your clarification. Last Revision, September 2015 Janethtabitha Souza [address] [facility] [place] [address] Documentation Clarification Form Date: 04/08/2017 12:49:00 PM From: Shauna Phan RN, CDI, CCDS Admit Date: 04/05/2017 4:43:00 PM Patient Name: Brodie Douglass Visit Number: [id number] Discharge Date: 04/12/17 Dr. Marquez Pettit: Per your progress notes/operative note, please clarify if a debridement was performed on 04/07/2017. Documentation included 'a knife was used to sharply excise skin, subcutaneous tissue and fascia'. History/Risk Factors: Abscess of right arm Clinical Indicators: Incision and Drainage of Abscess of right arm on 04/07 - tissue was excised Treatment: Irrigation Arm was packed open with gauze In order to capture the severity of condition and code the appropriate procedure could you please document the following: Excisional debridement (the removal of necrotic, devitalized tissue or slough by means of cutting away of tissue) Non-excisional debridement (the removal of necrotic, devitalized tissue or slough by means of flushing, brushing, or washing. (Irrigation) Other; with explanation for clinical findings Unable to determine (no explanation for clinical findings) Five elements required for accurate and compliant documentation of a debridement : 1. Technique used (e.g., excisional, excised, cutting, etc.) 2. Instrument(s) used (e.g., scalpel, curette, etc.) 3. Nature of the tissue removed (e.g., necrotic, devitalized tissues, non- viable tissue, etc.) 4. Appearance and size of the wound (e.g., down to fresh bleeding tissue, 7cm x 10cm, etc.) 5. Depth of the debridement* (e.g., skin, subcutaneous tissue, fascia, muscle , bone, etc.) Please document in your progress notes and discharge summary in order to capture severity of illness and risk of mortality. Include clinical findings that support your diagnosis. FYI: Press F11 to launch patient chart. Place X here if this finding has no clinical significance, is not applicable or if you are not able to provide any additional documentation. BARNEYD
== END 2017-04-12 15:35 | disposition home or self-care (01) | DRG 423 ==
LOC: EC 13:46 → 5MS5E 16:43
PROVIDERS: ADMIT Internal Medicine; ATTEND Internal Medicine
PROC: 0JBG0ZZ Excision of Right Lower Arm Subcutaneous Tissue and Fascia, Open Approach (ICD-10-PCS; 2017-04-07)
PROC: 0J9H0ZZ Drainage of Left Lower Arm Subcutaneous Tissue and Fascia, Open Approach (ICD-10-PCS; principal; 2017-04-07 12:00)
PROC: 0DJ08ZZ Inspection of Upper Intestinal Tract, Via Natural or Artificial Opening Endoscopic (ICD-10-PCS; 2017-04-08)
DX: K70.40 Alcoholic hepatic failure without coma (principal); G93.41 Metabolic encephalopathy; I85.01 Esophageal varices with bleeding; E44.0 Moderate protein-calorie malnutrition; K76.6 Portal hypertension; L02.413 Cutaneous abscess of right upper limb; D62 Acute posthemorrhagic anemia; D68.4 Acquired coagulation factor deficiency; K70.31 Alcoholic cirrhosis of liver with ascites; K70.11 Alcoholic hepatitis with ascites; F10.10 Alcohol abuse, uncomplicated; F17.200 Nicotine dependence, unspecified, uncomplicated; F31.9 Bipolar disorder, unspecified; I10 Essential (primary) hypertension; I86.4 Gastric varices; J44.9 Chronic obstructive pulmonary disease, unspecified; K31.89 Other diseases of stomach and duodenum; M19.90 Unspecified osteoarthritis, unspecified site; E86.0 Dehydration; E66.9 Obesity, unspecified; E11.9 Type 2 diabetes mellitus without complications; E03.9 Hypothyroidism, unspecified; S50.01XA Contusion of right elbow, initial encounter; Z79.899 Other long term (current) drug therapy; Z86.73 Personal history of transient ischemic attack (TIA), and cerebral infarction without residual deficits; Z87.442 Personal history of urinary calculi; Z88.0 Allergy status to penicillin; Z98.84 Bariatric surgery status; Z79.84 Long term (current) use of oral hypoglycemic drugs; A49.01 Methicillin susceptible Staphylococcus aureus infection, unspecified site; B95.2 Enterococcus as the cause of diseases classified elsewhere
CPT/HCPCS: 36415; 43235; 51701; 70450; 71020; 76705; 80048; 80053; 80202; 80306; 80320; 81003; 82105; 82140; 82550; 82553; 83735; 84484; 85025; 85610; 85730; 86850; 86900; 86901; 86920; 87040; 87070; 87075; 87077; 87086; 87186; 87205; 93005; 93975; 93976; 94760; 96361; 96365; 96366; 99285

== ENCOUNTER 2017-04-15 17:23 | Inpatient (IN) | payer OTHER ==
[2017-04-15] MEDS ORDERED: SODIUM CHLORIDE 0.9% 500 ML IV STA (17:48)
--- NOTE | 2017-04-15 17:53 | ED ---
Abdominal Pain HPI - General Chief Complaint: Abdominal Pain Stated Complaint: abdominal pain Time Seen by Provider: 04/15/17 17:44 Source: patient, EMS, RN notes reviewed Mode of arrival: EMS Limitations: no limitations - History of Present Illness Initial Comments: 56-year-old male presents to the emergency department with a chief complaint of increasing size of abdomen. Patient states she was recently discharged from the hospital on Wednesday. Patient states she was doing well until today when he woke up he notices abdomen was larger than normal. Patient is changes in mental status. Patient states the visiting nurse came to see him today and they noticed that his blood pressure was forcibly sent him here. Patient states that besides admitted to larger she has not noticed any other problems. Patient states that he is not having any other symptoms at this time.Patient denies any recent fever, chills, shortness of breath, chest pain, back pain, nausea vomiting, numbness or tingling, dysuria or hematuria, constipation or diarrhea, headaches or visual changes, or any other current symptoms. - Related Data Home Medications Medication Instructions Recorded Confirmed Ferrous Sulfate [Iron (65 MG 325 mg PO BID 02/24/17 04/15/17 Elemental)] Mirtazapine [Remeron] 45 mg PO HS 02/24/17 04/15/17 Pravastatin Sodium [Pravachol] 40 mg PO DAILY 02/24/17 04/15/17 metFORMIN HCL [Glucophage] 500 mg PO BID 02/24/17 04/15/17 Furosemide [Lasix] 20 mg PO BID 04/05/17 04/15/17 Nitroglycerin Sl Tabs [Nitrostat] 0.4 mg SUBLINGUAL Q5M PRN 04/05/17 04/15/17 Sennosides [Senokot] 8.6 mg PO DAILY PRN 04/05/17 04/15/17 Spironolactone [Aldactone] 100 mg PO BID 04/05/17 04/15/17 amLODIPine [Norvasc] 10 mg PO DAILY 04/05/17 04/15/17 Albuterol Inhaler [Ventolin Hfa 1 - 2 puff INHALATION RT-Q4H PRN 04/15/17 Inhaler] Lactulose [Cephulac] 30 gm PO QID 04/15/17 04/15/17 Multivitamins, Thera [Multivitamin 1 tab PO DAILY@1200 04/15/17 04/15/17 (formulary)] QUEtiapine [SEROquel] 100 mg PO HS 04/15/17 04/15/17 Previous Rx's Medication Instructions Recorded Magnesium Oxide [Mag-Ox] 400 mg PO TID #90 tab 02/27/17 Artificial Tears-Hypromellose 1 drops BOTH EYES TID PRN #0 bottle 04/12/17 [Artificial Tear Drops] Folic Acid 1 mg PO DAILY@1200 #30 tab 04/12/17 Nicotine 14Mg/24Hr Patch [Habitrol] 1 patch TRANSDERM DAILY #30 patch 04/12/17 Phytonadione Oral [Vitamin K Oral] 5 mg PO DAILY #30 oral.syrg 04/12/17 Propranolol [Inderal] 10 mg PO TID #90 tab 04/12/17 Rifaximin [Xifaxan] 550 mg PO BID #60 tablet 04/12/17 Thiamine [Vitamin B-1] 100 mg PO DAILY@1200 #30 tab 04/12/17 Allergies Allergy/AdvReac Type Severity Reaction Status Date / Time Penicillins Allergy Unknown Verified 04/15/17 17:40 Childhood Review of Systems ROS Statement: Those systems with pertinent positive or pertinent negative responses have been documented in the HPI. ROS Other: All systems not noted in ROS Statement are negative. Past Medical History Past Medical History: COPD, CVA/TIA, Diabetes Mellitus, Hyperlipidemia, Hypertension, Liver Disease, Thyroid Disorder Additional Past Medical History / Comment(s): etoh abuse, cirrosis History of Any Multi-Drug Resistant Organisms: None Reported Past Surgical History: Orthopedic Surgery Additional Past Surgical History / Comment(s): right kidney removed. kristina knee surgery. kidney stent for stones Past Psychological History: Bipolar, Depression Smoking Status: Current every day smoker Past Alcohol Use History: None Reported Additional Past Alcohol Use History / Comment(s): has not drank in the past month Past Drug Use History: None Reported - Past Family History Mother Additional Family Medical History / Comment(s): skin cancer General Exam - General Exam Comments Initial Comments: General: The patient is awake and alert, in no distress, and does not appear acutely ill. Eye: Pupils are equal, round and reactive to light, extra-ocular movements are intact; there is normal conjunctiva bilaterally. No signs of icterus. Ears, nose, mouth and throat: There are moist mucous membranes. Neck: The neck is supple, there is no tenderness. Cardiovascular: There is a regular rate and rhythm. No murmur, rub or gallop is appreciated. Respiratory: Lungs are clear to auscultation, respirations are non-labored, breath sounds are equal. No wheezes, stridor, rales, or rhonchi. Gastrointestinal: Distended, soft, ascites, non-tender abdomen without masses or organomegaly noted. There is no rebound or guarding present. No CVA tenderness. Bowel sounds are unremarkable. Back: There is no tenderness to palpation in the midline. There is no obvious deformity. No rashes noted. Musculoskeletal: Normal ROM, no tenderness, There is no pedal edema. There is no calf tenderness or swelling. Sensation intact. Pulses equal bilaterally 2+. Neurological: CN II-XII intact, There are no obvious motor or sensory deficits. Coordination appears grossly intact. Speech is normal. Skin: Skin is warm and dry and no rashes or lesions are noted. Psychiatric: Cooperative, appropriate mood & affect, normal judgment. Limitations: no limitations Course Vital Signs 04/15/17 04/15/17 17:35 19:44 Temperature 98.1 F Pulse Rate 67 76 Respiratory 18 22 Rate Blood Pressure 103/52 97/45 O2 Sat by Pulse 100 Oximetry Medical Decision Making - Medical Decision Making 56-year-old man presents for an increased distention to the abdomen with a history of cirrhosis and liver failure due to alcoholism. At this time the patient's lab work is reviewed. Patient does appear to have anemia that is new compared to previous hemoglobin of 7.7 which has appeared to be more closely patient's baseline. Hemoccult is positive and patient does have esophageal varices on recent scope. At this time we will give the patient 10 units of blood. Patient is also found to have an elevated lactic acid we will hydrate the patient appropriately as well. Patient does have an elevated potassium we will repeat this after hydration to see the patient's improvement. At this time we did discuss admission with the patient is in agreement with plan. All questions have been answered. Patient's ammonia is also found to be elevated however does appear to be closed patient's baseline. - Lab Data Result diagrams: 04/15/17 18:30 04/15/17 18:30 Lab Results 04/15/17 04/15/17 04/15/17 Range/Units 18:30 18:30 18:30 WBC 10.2 (3.8-10.6) k/uL RBC 1.79 L (4.30-5.90) m/uL Hgb 5.1 L* D (13.0-17.5) gm/dL Hct 17.0 L* (39.0-53.0) % MCV 95.0 (80.0-100.0) fL MCH 28.7 (25.0-35.0) pg MCHC 30.3 L (31.0-37.0) g/dL RDW 18.8 H (11.5-15.5) % Plt Count 197 (150-450) k/uL Neutrophils % 67 % Lymphocytes % 15 % Monocytes % 13 % Eosinophils % 1 % Basophils % 1 % Neutrophils # 6.8 (1.3-7.7) k/uL Lymphocytes # 1.5 (1.0-4.8) k/uL Monocytes # 1.3 H (0-1.0) k/uL Eosinophils # 0.1 (0-0.7) k/uL Basophils # 0.1 (0-0.2) k/uL Hypochromasia Marked Poikilocytosis Slight Anisocytosis Slight Macrocytosis Slight PT (9.0-12.0) sec INR (<1.1) APTT (22.0-30.0) sec Sodium 128 L (137-145) mmol/L Potassium 5.6 H (3.5-5.1) mmol/L Chloride 105 (98-107) mmol/L Carbon Dioxide 16 L (22-30) mmol/L Anion Gap 7 mmol/L BUN 33 H (9-20) mg/dL Creatinine 1.00 (0.66-1.25) mg/dL Est GFR (MDRD) Af Amer >60 (>60 ml/min/1.73 sqM) Est GFR (MDRD) Non-Af >60 (>60 ml/min/1.73 sqM) Glucose 72 L (74-99) mg/dL Plasma Lactic Acid Iker 5.4 H* (0.7-2.0) mmol/L Calcium 7.3 L (8.4-10.2) mg/dL Total Bilirubin 0.9 (0.2-1.3) mg/dL AST 47 (17-59) U/L ALT 41 (21-72) U/L Alkaline Phosphatase 104 (38-126) U/L Ammonia 77 H (<30) umol/L Total Protein 4.9 L (6.3-8.2) g/dL Albumin 1.9 L (3.5-5.0) g/dL Amylase 101 (30-110) U/L Lipase 565 H (23-300) U/L Stool Occult Blood (Negative) 04/15/17 04/15/17 Range/Units 18:30 19:47 WBC (3.8-10.6) k/uL RBC (4.30-5.90) m/uL Hgb (13.0-17.5) gm/dL Hct (39.0-53.0) % MCV (80.0-100.0) fL MCH (25.0-35.0) pg MCHC (31.0-37.0) g/dL RDW (11.5-15.5) % Plt Count (150-450) k/uL Neutrophils % % Lymphocytes % % Monocytes % % Eosinophils % % Basophils % % Neutrophils # (1.3-7.7) k/uL Lymphocytes # (1.0-4.8) k/uL Monocytes # (0-1.0) k/uL Eosinophils # (0-0.7) k/uL Basophils # (0-0.2) k/uL Hypochromasia Poikilocytosis Anisocytosis Macrocytosis PT 16.6 H (9.0-12.0) sec INR 1.7 (<1.1) APTT 26.3 (22.0-30.0) sec Sodium (137-145) mmol/L Potassium (3.5-5.1) mmol/L Chloride (98-107) mmol/L Carbon Dioxide (22-30) mmol/L Anion Gap mmol/L BUN (9-20) mg/dL Creatinine (0.66-1.25) mg/dL Est GFR (MDRD) Af Amer (>60 ml/min/1.73 sqM) Est GFR (MDRD) Non-Af (>60 ml/min/1.73 sqM) Glucose (74-99) mg/dL Plasma Lactic Acid Iker (0.7-2.0) mmol/L Calcium (8.4-10.2) mg/dL Total Bilirubin (0.2-1.3) mg/dL AST (17-59) U/L ALT (21-72) U/L Alkaline Phosphatase (38-126) U/L Ammonia (<30) umol/L Total Protein (6.3-8.2) g/dL Albumin (3.5-5.0) g/dL Amylase (30-110) U/L Lipase (23-300) U/L Stool Occult Blood Positive (Negative) Disposition Clinical Impression: Chronic liver disease, ETOH abuse, Esophageal varices, Acute blood loss anemia , GI bleed, Lactic acidosis, Hepatic encephalopathy, Ascites due to chronic alcoholic hepatitis, Dehydration, Hyperkalemia, Hyponatremia Disposition: ADMITTED IP TO THIS [facility] Condition: Fair Referrals: Lenora Tan MD [Primary Care Provider] - 1-2 days Time of Disposition: 20:11 Decision Date: 04/15/17 Decision Time: 20:12
[2017-04-15 19:04] LABS: Anisocytosis Slight; Basophils # (A) 0.1 k/uL (0-0.2); Basophils % (A) 1 %; CH 28.9; CHCM 30.6; Eosinophils # (A) 0.1 k/uL (0-0.7); Eosinophils % (A) 1 %; HDW 3.59; Hypochromasia Marked; Luc # (Auto) 0.45; Luc % (Auto) 5; Lymphocytes # (A) 1.5 k/uL (1.0-4.8); Lymphocytes % (A) 15 %; MCH 28.7 pg (25.0-35.0); MCHC 30.3 g/dL (31.0-37.0); Macrocytosis Slight; Mean Platelet Volume 8.6; Monocytes # (A) 1.3 k/uL (0-1.0); Monocytes % (A) 13 %; Neutrophils # (A) 6.8 k/uL (1.3-7.7); Neutrophils % (A) 67 %; Poikilocytosis Slight; RBC 1.79 m/uL (4.30-5.90); RDW 18.8 % (11.5-15.5); WBC 10.2 k/uL (3.8-10.6); WBC (Perox) 10.25
[2017-04-15 19:09] LABS: HGB 5.1 gm/dL (13.0-17.5)
[2017-04-15 19:12] LABS: INR 1.7 (<1.1); Partial Thromboplastin Time 26.3 sec (22.0-30.0); Prothrombin Time 16.6 sec (9.0-12.0)
[2017-04-15] MEDS ORDERED: SODIUM CHLORIDE 0.9% 1,000 ML IV STA (19:30)
[2017-04-15 19:34] LABS: ALT 41 U/L (21-72); AST 47 U/L (17-59); Alkaline Phosphatase 104 U/L (38-126); Amylase 101 U/L (30-110); Anion Gap 7 mmol/L; Blood Urea Nitrogen 33 mg/dL (9-20); Calcium 7.3 mg/dL (8.4-10.2); Carbon Dioxide 16 mmol/L (22-30); Chloride 105 mmol/L (98-107); Glucose 72 mg/dL (74-99); Non-African American GFR(MDRD) >60 (>60 ml/min/1.73 sqM); Potassium 5.6 mmol/L (3.5-5.1); Sodium 128 mmol/L (137-145); Total Bilirubin 0.9 mg/dL (0.2-1.3); Total Protein 4.9 g/dL (6.3-8.2)
--- NOTE | 2017-04-15 20:05 | XR ---
EXAMINATION TYPE: XR abdomen 2V DATE OF EXAM: 04/15/2017 7:34 PM COMPARISON: NONE HISTORY: pain TECHNIQUE: 1 upright and 3 supine views FINDINGS: The visualized lung bases and pleural spaces are negative. Bowel gas pattern is normal. There is no pneumoperitoneum or pneumatosis. The bones and soft tissues are unremarkable. IMPRESSION: NO ACUTE PROCESS.
[2017-04-15] MEDS ORDERED: NALOXONE 0.4 MG/ML 1 ML VIAL IV PRN (20:12)
[2017-04-15 20:15] LABS: Appearance,Urine Clear (Clear); Bilirubin,Urine Negative (Negative); Glucose,Urine (UA) Negative (Negative); Ketones,Urine Negative (Negative); Leukocyte Esterase,Urine Negative (Negative); Nitrite,Urine Negative (Negative); PH, Urine 5.5 (5.0-8.0); Protein,Urine Negative (Negative); Specific Gravity,Urine 1.009 (1.001-1.035); UA Billing (MACRO vs. MICRO) CHEM; Urobilinogen,Urine <2.0 mg/dL (<2.0)
[2017-04-15] MEDS ORDERED: METOCLOPRAMIDE 5 MG/ML 2 ML VIAL IVP STA (21:54)
[2017-04-15 23:36] LABS: Glucose,Whole Blood 85 mg/dL (75-99)
[2017-04-16 00:06] LABS: Anisocytosis Slight; CH 28.6; CHCM 30.4; HCT 21.7 % (39.0-53.0); Hypochromasia Marked; MCH 29.6 pg (25.0-35.0); MCHC 31.2 g/dL (31.0-37.0); Macrocytosis Slight; Mean Platelet Volume 8.7; Poikilocytosis Slight; RBC 2.29 m/uL (4.30-5.90); RDW 18.6 % (11.5-15.5); WBC 11.8 k/uL (3.8-10.6)
[2017-04-16 00:12] VITALS: BMI 29.0
[2017-04-16 00:13] LABS: HGB 6.8 gm/dL (13.0-17.5)
[2017-04-16] MEDS: SODIUM CHLORIDE 0.9% 1,000 ML IV SCH ×3 (00:17→16:39)
[2017-04-16] MEDS: OCTREOTIDE 200 MCG in SODIUM CHLORIDE 0.9% 100 ML IV SCH ×6 (00:48→20:48)
[2017-04-16] MEDS ORDERED: SODIUM CHLORIDE 0.9% 1,000 ML IV ONE ×2 (03:06→16:37)
[2017-04-16 05:38] LABS: ALT 35 U/L (21-72); AST 54 U/L (17-59); Alkaline Phosphatase 79 U/L (38-126); Anion Gap 7 mmol/L; Blood Urea Nitrogen 40 mg/dL (9-20); Calcium 6.8 mg/dL (8.4-10.2); Carbon Dioxide 13 mmol/L (22-30); Chloride 108 mmol/L (98-107); Glucose 89 mg/dL (74-99); Magnesium 1.8 mg/dL (1.6-2.3); Non-African American GFR(MDRD) >60 (>60 ml/min/1.73 sqM); Phosphorous 3.1 mg/dL (2.5-4.5); Potassium 5.3 mmol/L (3.5-5.1); Sodium 128 mmol/L (137-145); Total Protein 4.4 g/dL (6.3-8.2)
[2017-04-16] MEDS ORDERED: Magnesium Replacement Protocol 1 EACH MISC MISCELLANE PRN (05:42)
[2017-04-16] MEDS: MAGNESIUM SULFATE-D5W PMX 1 GM in DEXTROSE/WATER 1 100ML.BAG IVPB SCH ×2 (06:06→06:53)
[2017-04-16 07:36] LABS: Anisocytosis Slight; CH 28.5; CHCM 29.5; HDW 4.21; Hypochromasia Marked; MCH 30.1 pg (25.0-35.0); MCHC 30.8 g/dL (31.0-37.0); MCV 97.6 fL (80.0-100.0); Macrocytosis Slight; Mean Platelet Volume 9.2; Poikilocytosis Moderate; RBC 1.96 m/uL (4.30-5.90); RDW 18.8 % (11.5-15.5); WBC 10.1 k/uL (3.8-10.6); WBC (Perox) 9.75
[2017-04-16 07:37] LABS: HGB 5.9 gm/dL (13.0-17.5)
[2017-04-16 07:38] LABS: HCT 19.2 % (39.0-53.0)
[2017-04-16 07:53] LABS: INR 1.9 (<1.1)
--- NOTE | 2017-04-16 08:10 | XR ---
EXAMINATION TYPE: XR chest 1V DATE OF EXAM: 04/16/2017 6:42 AM COMPARISON: 04/09/2017 HISTORY: 56 year-old male shortness of breath TECHNIQUE: Single frontal view of the chest is obtained. FINDINGS: Heart is upper limits of normal in size. Lung volumes are low with crowded vascular markings. This re sults in some patchy left basilar opacity. No significant pleural effusion. IMPRESSION: Hypoventilatory changes with some patchy atelectasis or early infiltrate at the left base.
[2017-04-16 08:17] LABS: Glucose,Whole Blood 135 mg/dL (75-99)
[2017-04-16] MEDS: PIPERACILLIN-TAZOBACTAM 3.375 GM in DEXTROSE/WATER 1 50ML.BAG IVPB SCH ×2 (08:21→15:30)
[2017-04-16] MEDS: PANTOPRAZOLE 40 MG/10 ML VIAL IVP SCH ×2 (08:21→20:48)
[2017-04-16 08:45] LABS: Add Differential Manual Differential
[2017-04-16 08:50] LABS: Nucleated Red Blood Cells 0 /100 WBC (0-0); Total Cells Counted 100
[2017-04-16 08:53] LABS: Polychromasia Present
[2017-04-16] MEDS ORDERED: PANTOPRAZOLE 40 MG/10 ML VIAL IV SCH (09:00)
[2017-04-16 11:58] LABS: Glucose,Whole Blood 128 mg/dL (75-99)
--- NOTE | 2017-04-16 12:40 | P.CONS ---
History of Present Illness - Reason for Consult Consult date: 04/16/17 GI bleed Requesting physician: Darvin Camargo - History of Present Illness 56-year-old gentleman with a past medical history of long-standing EtOH abuse, hepatic encephalopathy, bipolar depression, CVA, COPD, diabetes mellitus, hypertension, esophageal varices, and hypothyroidism. Patient was evaluated by the GI service a week ago in regards to hepatic encephalopathy with elevated ammonia level as well as underlying alcohol liver disease/hepatitis. During his hospitalization hemoglobin decreased to 5.5 without overt bleeding however prior to admission there was reports that he may have had hematemesis. He received 3 units of blood and underwent EGD evaluation by Dr. Arzola on 2016 with findings of gastric varices and grade 1/2 distal esophageal varices with no stigmata of recent bleed. Portal hypertensive gastropathy. Discharged on 04/12/2017 and returned yesterday with reports of increased abdominal distention, hematemesis and bloody bowel movements red/black mix. Discharge hemoglobin was 7.7 on the . Admission hemoglobin 5.1 he has received 2 units of blood and repeat hemoglobin 6.8 but decreased to 5.9 this morning. He is receiving a third unit of blood with repeat CBC after infusion. Presently not receiving IV pressors. Receiving IV Sandostatin. INR 1.9. BUN 40. Creatinine 0.9. Total bilirubin 3.0. AST 54. ALT 35. Alkaline phosphatase 79. Ammonia 77. Review of Systems Constitutional: Denies fever, chills, sweats, weight gain, or loss. HEENT: Negative for migraines, blurred vision or loss, earaches, drainage, tinnitus, oral mucosal lesions, dysphagia, or odynophagia. Cardiac: Nicotine cigarette dependency. Hypertension. Negative for chest pain , arrhythmias, or palpitation. Respiratory: COPD. Negative for shortness of breath, hemoptysis, cough, or sputum production. Gastrointestinal: See HPI for pertinent findings. Genitourinary: Negative for hematuria, urgency, frequency, polyuria, dysuria, or penile discharge. Musculoskeletal: Negative for muscle aches, swelling, arthritis, and arthralgias. Neurologic: History of CVA/TIA. Endocrine: Hypothyroidism problems. Diabetes mellitus. Skin: Negative for rash or itching. Psychiatric: History of bipolar depression. All systems: negative (See HPI) Past Medical History Past Medical History: COPD, CVA/TIA, Diabetes Mellitus, Hyperlipidemia, Hypertension, Liver Disease, Thyroid Disorder Additional Past Medical History / Comment(s): etoh abuse, cirrosis History of Any Multi-Drug Resistant Organisms: None Reported Past Surgical History: Orthopedic Surgery Additional Past Surgical History / Comment(s): right kidney removed. kristina knee surgery. kidney stent for stones Past Psychological History: Bipolar, Depression Smoking Status: Current every day smoker Past Alcohol Use History: None Reported Additional Past Alcohol Use History / Comment(s): has not drank in the past month Past Drug Use History: None Reported - Past Family History Mother Additional Family Medical History / Comment(s): skin cancer Medications and Allergies Home Medications Medication Instructions Recorded Confirmed Type Ferrous Sulfate [Iron (65 MG 325 mg PO BID 02/24/17 04/15/17 History Elemental)] Mirtazapine [Remeron] 45 mg PO HS 02/24/17 04/15/17 History Pravastatin Sodium [Pravachol] 40 mg PO DAILY 02/24/17 04/15/17 History metFORMIN HCL [Glucophage] 500 mg PO BID 02/24/17 04/15/17 History Furosemide [Lasix] 20 mg PO BID 04/05/17 04/15/17 History Nitroglycerin Sl Tabs [Nitrostat] 0.4 mg SUBLINGUAL Q5M PRN 04/05/17 04/15/17 History Sennosides [Senokot] 8.6 mg PO DAILY PRN 04/05/17 04/15/17 History Spironolactone [Aldactone] 100 mg PO BID 04/05/17 04/15/17 History amLODIPine [Norvasc] 10 mg PO DAILY 04/05/17 04/15/17 History Albuterol Inhaler [Ventolin Hfa 1 - 2 puff INHALATION RT-Q4H PRN 04/15/17 History Inhaler] Lactulose [Cephulac] 30 gm PO QID 04/15/17 04/15/17 History Multivitamins, Thera [Multivitamin 1 tab PO DAILY@1200 04/15/17 04/15/17 History (formulary)] QUEtiapine [SEROquel] 100 mg PO HS 04/15/17 04/15/17 History Allergies Allergy/AdvReac Type Severity Reaction Status Date / Time Penicillins Allergy Unknown Verified 04/15/17 17:40 Childhood Physical Exam Vitals: Vital Signs Temp Pulse Resp BP Pulse Ox 04/16/17 11:00 73 17 114/50 100 04/16/17 10:32 97.7 F 71 20 103/47 100 04/16/17 10:22 97.5 F L 74 22 119/57 100 04/16/17 10:02 98 F 78 21 115/59 99 04/16/17 10:00 76 20 106/40 100 04/16/17 09:52 97.9 F 76 20 106/40 100 04/16/17 09:00 73 15 108/51 100 04/16/17 08:00 97.8 F 74 16 97/38 100 04/16/17 07:00 62 19 86/40 100 04/16/17 06:00 64 13 78/42 99 04/16/17 05:00 79 18 103/56 97 04/16/17 04:00 97.8 F 75 20 108/55 100 04/16/17 03:47 97.8 F 70 22 78/46 100 04/16/17 03:00 66 16 72/43 99 04/16/17 02:10 97.8 F 76 26 H 72/43 98 04/16/17 02:00 74 16 84/43 100 04/16/17 01:40 98.0 F 72 20 86/52 97 04/16/17 01:30 98.2 F 77 19 84/44 96 04/16/17 01:20 97.6 F 68 20 82/48 98 04/16/17 01:00 71 14 101/50 98 04/16/17 00:00 97.8 F 71 29 H 93/40 100 04/15/17 23:43 97.8 F 72 22 93/56 98 04/15/17 23:13 97.0 F L 74 24 90/45 100 04/15/17 23:03 96.9 F L 73 24 95/50 95 04/15/17 22:25 79 24 90/42 100 04/15/17 22:16 97.8 F 04/15/17 21:46 73 22 89/51 97 04/15/17 21:08 75 22 102/44 97 04/15/17 19:44 76 22 97/45 04/15/17 17:35 98.1 F 67 18 103/52 100 Intake and Output 04/15/17 04/16/17 04/16/17 22:59 06:59 14:59 Intake Total 1288.175 638.5 Output Total 500 375 Balance 788.175 263.5 Intake: IV 600 500 Sodium Chloride 0.9% 1, 600 500 000 ml @ 100 mls/hr IV . Q10H TEQUILA Rx#:[id number] Intake, IV Titration 68.175 138.5 Amount Octreotide 200 mcg In 68.175 101 Sodium Chloride 0.9% 100 ml @ 50 MCG/HR 25.25 mls/ hr IV .Q4H TEQUILA Rx#: [id number] Piperacillin-Tazobactam 3 37.5 .375 gm In Dextrose/Water 1 50ml.bag @ 12.5 mls/hr IVPB Q8HR TEQUILA Rx#: [id number] Oral 0 Blood Product 620 Rc Pheresis As-3 Unit 310 [id number] Rc Pheresis As-3 Unit 310 [id number] Output: Urine 500 375 Other: Voiding Method Urinal Urinal # Bowel Movements 1 1 Weight 94.6 kg 94.6 kg General appearance: The patient is alert, oriented, in no acute distress. HET: Head is normocephalic and atraumatic. Pupils are equal and reactive. Oropharynx is clear without lesions. Neck: Supple without lymphadenopathy. Trachea midline. Heart: S1 S2. Regular rate and rhythm. Lungs: No crackles or wheezes are heard. Abdomen: Soft, distended with moderate ascites, tympanic, with bowel sounds. Mild midepigastric tenderness. No peritoneal signs. No palpable organomegaly or masses. Extremities: Normal skin color and turgor. No cyanosis, rash, ulceration, clubbing, or edema. Radial and pedal pulses are 2/4 bilaterally. Mild asterixis. Bilateral palmar erythema. Neurological: No focal deficits. Strength and sensation are grossly intact. Results CBC & Chem 7: 04/16/17 04:50 04/16/17 04:50 Labs: Abnormal Lab Results - Last 24 Hours (Table) 04/15/17 04/15/17 04/15/17 Range/Units 18:30 18:30 18:30 WBC (3.8-10.6) k/uL RBC 1.79 L (4.30-5.90) m/uL Hgb 5.1 L* D (13.0-17.5) gm/dL Hct 17.0 L* (39.0-53.0) % MCHC 30.3 L (31.0-37.0) g/dL RDW 18.8 H (11.5-15.5) % Plt Count (150-450) k/uL Monocytes # 1.3 H (0-1.0) k/uL PT (9.0-12.0) sec Sodium 128 L (137-145) mmol/L Potassium 5.6 H (3.5-5.1) mmol/L Chloride (98-107) mmol/L Carbon Dioxide 16 L (22-30) mmol/L BUN 33 H (9-20) mg/dL Glucose 72 L (74-99) mg/dL POC Glucose (mg/dL) (75-99) mg/dL Plasma Lactic Acid Iker 5.4 H* (0.7-2.0) mmol/L Calcium 7.3 L (8.4-10.2) mg/dL Total Bilirubin (0.2-1.3) mg/dL Ammonia 77 H (<30) umol/L Total Protein 4.9 L (6.3-8.2) g/dL Albumin 1.9 L (3.5-5.0) g/dL Lipase 565 H (23-300) U/L Crossmatch 04/15/17 04/15/17 04/15/17 Range/Units 18:30 18:50 21:08 WBC (3.8-10.6) k/uL RBC (4.30-5.90) m/uL Hgb (13.0-17.5) gm/dL Hct (39.0-53.0) % MCHC (31.0-37.0) g/dL RDW (11.5-15.5) % Plt Count (150-450) k/uL Monocytes # (0-1.0) k/uL PT 16.6 H (9.0-12.0) sec Sodium (137-145) mmol/L Potassium (3.5-5.1) mmol/L Chloride (98-107) mmol/L Carbon Dioxide (22-30) mmol/L BUN (9-20) mg/dL Glucose (74-99) mg/dL POC Glucose (mg/dL) (75-99) mg/dL Plasma Lactic Acid Iker 6.6 H* (0.7-2.0) mmol/L Calcium (8.4-10.2) mg/dL Total Bilirubin (0.2-1.3) mg/dL Ammonia (<30) umol/L Total Protein (6.3-8.2) g/dL Albumin (3.5-5.0) g/dL Lipase (23-300) U/L Crossmatch See Detail 04/15/17 04/15/17 04/16/17 Range/Units 23:35 23:35 04:50 WBC 11.8 H (3.8-10.6) k/uL RBC 2.29 L 1.96 L (4.30-5.90) m/uL Hgb 6.8 L* D 5.9 L* (13.0-17.5) gm/dL Hct 21.7 L 19.2 L* (39.0-53.0) % MCHC 30.8 L (31.0-37.0) g/dL RDW 18.6 H 18.8 H (11.5-15.5) % Plt Count 148 L (150-450) k/uL Monocytes # (0-1.0) k/uL PT (9.0-12.0) sec Sodium (137-145) mmol/L Potassium (3.5-5.1) mmol/L Chloride (98-107) mmol/L Carbon Dioxide (22-30) mmol/L BUN (9-20) mg/dL Glucose (74-99) mg/dL POC Glucose (mg/dL) (75-99) mg/dL Plasma Lactic Acid Iker (0.7-2.0) mmol/L Calcium (8.4-10.2) mg/dL Total Bilirubin (0.2-1.3) mg/dL Ammonia (<30) umol/L Total Protein (6.3-8.2) g/dL Albumin (3.5-5.0) g/dL Lipase (23-300) U/L Crossmatch See Detail 04/16/17 04/16/17 04/16/17 Range/Units 04:50 04:50 07:38 WBC (3.8-10.6) k/uL RBC (4.30-5.90) m/uL Hgb (13.0-17.5) gm/dL Hct (39.0-53.0) % MCHC (31.0-37.0) g/dL RDW (11.5-15.5) % Plt Count (150-450) k/uL Monocytes # (0-1.0) k/uL PT 18.0 H (9.0-12.0) sec Sodium 128 L (137-145) mmol/L Potassium 5.3 H (3.5-5.1) mmol/L Chloride 108 H (98-107) mmol/L Carbon Dioxide 13 L (22-30) mmol/L BUN 40 H (9-20) mg/dL Glucose (74-99) mg/dL POC Glucose (mg/dL) (75-99) mg/dL Plasma Lactic Acid Iker 5.3 H* (0.7-2.0) mmol/L Calcium 6.8 L (8.4-10.2) mg/dL Total Bilirubin 3.0 H (0.2-1.3) mg/dL Ammonia (<30) umol/L Total Protein 4.4 L (6.3-8.2) g/dL Albumin 1.6 L (3.5-5.0) g/dL Lipase (23-300) U/L Crossmatch 04/16/17 04/16/17 Range/Units 08:14 11:57 WBC (3.8-10.6) k/uL RBC (4.30-5.90) m/uL Hgb (13.0-17.5) gm/dL Hct (39.0-53.0) % MCHC (31.0-37.0) g/dL RDW (11.5-15.5) % Plt Count (150-450) k/uL Monocytes # (0-1.0) k/uL PT (9.0-12.0) sec Sodium (137-145) mmol/L Potassium (3.5-5.1) mmol/L Chloride (98-107) mmol/L Carbon Dioxide (22-30) mmol/L BUN (9-20) mg/dL Glucose (74-99) mg/dL POC Glucose (mg/dL) 135 H 128 H (75-99) mg/dL Plasma Lactic Acid Iker (0.7-2.0) mmol/L Calcium (8.4-10.2) mg/dL Total Bilirubin (0.2-1.3) mg/dL Ammonia (<30) umol/L Total Protein (6.3-8.2) g/dL Albumin (3.5-5.0) g/dL Lipase (23-300) U/L Crossmatch Assessment and Plan (1) GI bleed Narrative/Plan: History of esophageal varices status post EGD 04/08/2017 without variceal ligation findings of gastric varices and 1/2 distal esophageal varices without stigmata of bleeding with portal hypertensive gastropathy. Suspect variceal bleed. Status: Acute (2) Coagulopathy Status: Acute (3) Acute blood loss anemia Status: Acute (4) Ascites due to chronic alcoholic hepatitis Status: Acute (5) Chronic liver disease Status: Acute (6) ETOH abuse Status: Acute (7) Esophageal varices Status: Acute (8) Hepatic encephalopathy Status: Acute Plan: 1. EGD evaluation today. 2. IV Protonix twice daily concomitant with IV Sandostatin. 3. FFP transfusion 4 units per INR 1.9. CBC PT/INR this afternoon after FFP infuse. 4. Nothing by mouth. 5. CBC every 6 hours. 6. We'll consider paracentesis after EGD is performed and patient is stabilized. For now will order ultrasound of the abdomen to assess for ascites. Diuretics as indicated. 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 The patient has indicated understanding and acceptance of the risks and procedures discussed. Thank you for this kind referral and the opportunity to participate in the care of your patient. This consultation was discussed with Dr. Blackwood. The impression and plan of care have been directed as dictated.
--- NOTE | 2017-04-16 14:35 | P.CNPUL ---
History of Present Illness Consult date: 04/16/17 Chief complaint: GI bleed, hypertension History of present illness: This is a 56-year-old male patient with known history of alcoholic liver cirrhosis in addition multiple to multiple other medical problems and comorbidities. The patient was drinking alcohol up to recently and apparently quit drinking approximately a month ago. He was in the hospital last week and he was seen by GI services regarding GI bleeding. He was admitted to the hospital for the same. Note that during his hospitalization, the patient's hematoma was at 5.5 and he got transfused with packed RBC a total of 3 units and he was evaluated by gastroenterology and underwent a EGD on 04/08/2017 and he was found to have gastric varices with a grade 1-2 distal esophageal varices without stigmata of any recent bleeding. He also had portal hypertensive gastropathy. He was discharged home to be admitted with the bowels of melanotic bowel movements yesterday and another episode this morning. On admission his hemoglobin was down to 5.1. The patient has already received 2 units of packed RBC. Repeat hemoglobin is up to 6.8 and subsequently dropped down to 5.9 this morning. Based on this, the patient will be given another unit of packed RBC. The patient is on octreotide. The patient will be undergoing another EGD by gastroenterology. Note that he is seated total of 4 units of IV fluids and currently he is on a maintenance IV fluids. He is a bit lethargic. A bit sleepy. Ammonia level is at 77. Abdomen is distended and there is positive ascites. No fever. No chills. No abdominal pain. No agitation. The patient's chest x-ray is free of any acute pulmonary infiltrates or pneumonias. I do not see any evidence of any pneumonia. Review of Systems All systems: negative Constitutional: Denies chills, Denies fever Eyes: denies blurred vision, denies pain Ears, nose, mouth and throat: Denies headache, Denies sore throat Cardiovascular: Denies chest pain, Denies shortness of breath Respiratory: Denies cough Gastrointestinal: Reports melena, Denies abdominal pain, Denies diarrhea, Denies nausea, Denies vomiting Musculoskeletal: Denies myalgias Integumentary: Denies pruritus, Denies rash Neurological: Denies numbness, Denies weakness Psychiatric: Denies anxiety, Denies depression Endocrine: Denies fatigue, Denies weight change Past Medical History Past Medical History: COPD, CVA/TIA, Diabetes Mellitus, Hyperlipidemia, Hypertension, Liver Disease, Thyroid Disorder Additional Past Medical History / Comment(s): Alcoholism, alcoholic liver cirrhosis, history of hepatic encephalopathy, portal hypertension and esophageal varices and portal hypertensive gastropathy, bipolar disorder, depression, CVA, COPD, diabetes mellitus, hypertension, hypothyroidism History of Any Multi-Drug Resistant Organisms: None Reported Past Surgical History: Orthopedic Surgery Additional Past Surgical History / Comment(s): Right nephrectomy, bilateral knee surgery, stents for kidney stones, EGD Past Psychological History: Bipolar, Depression Smoking Status: Current every day smoker Past Alcohol Use History: None Reported Additional Past Alcohol Use History / Comment(s): has not drank in the past month Past Drug Use History: None Reported - Past Family History Mother Additional Family Medical History / Comment(s): skin cancer Medications and Allergies Home Medications Medication Instructions Recorded Confirmed Type Ferrous Sulfate [Iron (65 MG 325 mg PO BID 02/24/17 04/15/17 History Elemental)] Mirtazapine [Remeron] 45 mg PO HS 02/24/17 04/15/17 History Pravastatin Sodium [Pravachol] 40 mg PO DAILY 02/24/17 04/15/17 History metFORMIN HCL [Glucophage] 500 mg PO BID 02/24/17 04/15/17 History Furosemide [Lasix] 20 mg PO BID 04/05/17 04/15/17 History Nitroglycerin Sl Tabs [Nitrostat] 0.4 mg SUBLINGUAL Q5M PRN 04/05/17 04/15/17 History Sennosides [Senokot] 8.6 mg PO DAILY PRN 04/05/17 04/15/17 History Spironolactone [Aldactone] 100 mg PO BID 04/05/17 04/15/17 History amLODIPine [Norvasc] 10 mg PO DAILY 04/05/17 04/15/17 History Albuterol Inhaler [Ventolin Hfa 1 - 2 puff INHALATION RT-Q4H PRN 04/15/17 History Inhaler] Lactulose [Cephulac] 30 gm PO QID 04/15/17 04/15/17 History Multivitamins, Thera [Multivitamin 1 tab PO DAILY@1200 04/15/17 04/15/17 History (formulary)] QUEtiapine [SEROquel] 100 mg PO HS 04/15/17 04/15/17 History Allergies Allergy/AdvReac Type Severity Reaction Status Date / Time Penicillins Allergy Unknown Verified 04/15/17 17:40 Childhood Physical Exam Vitals: Vital Signs Temp Pulse Resp BP Pulse Ox 04/16/17 14:01 97.8 F 74 18 122/44 100 04/16/17 14:00 74 13 122/44 99 04/16/17 13:16 97.9 F 77 14 88/37 100 04/16/17 13:15 97.9 F 72 14 96/43 100 04/16/17 13:10 98 F 73 16 91/44 100 04/16/17 13:06 98 F 73 18 91/44 100 04/16/17 13:00 97.7 F 73 17 109/46 100 04/16/17 12:16 97.9 F 18 105/46 100 04/16/17 12:00 97.9 F 68 12 114/43 100 04/16/17 11:00 73 17 114/50 100 04/16/17 10:32 97.7 F 71 20 103/47 100 04/16/17 10:22 97.5 F L 74 22 119/57 100 04/16/17 10:02 98 F 78 21 115/59 99 04/16/17 10:00 76 20 106/40 100 04/16/17 09:52 97.9 F 76 20 106/40 100 04/16/17 09:00 73 15 108/51 100 04/16/17 08:00 97.8 F 74 16 97/38 100 04/16/17 07:00 62 19 86/40 100 04/16/17 06:00 64 13 78/42 99 04/16/17 05:00 79 18 103/56 97 04/16/17 04:00 97.8 F 75 20 108/55 100 04/16/17 03:47 97.8 F 70 22 78/46 100 04/16/17 03:00 66 16 72/43 99 04/16/17 02:10 97.8 F 76 26 H 72/43 98 04/16/17 02:00 74 16 84/43 100 04/16/17 01:40 98.0 F 72 20 86/52 97 04/16/17 01:30 98.2 F 77 19 84/44 96 04/16/17 01:20 97.6 F 68 20 82/48 98 04/16/17 01:00 71 14 101/50 98 04/16/17 00:00 97.8 F 71 29 H 93/40 100 04/15/17 23:43 97.8 F 72 22 93/56 98 04/15/17 23:13 97.0 F L 74 24 90/45 100 04/15/17 23:03 96.9 F L 73 24 95/50 95 04/15/17 22:25 79 24 90/42 100 04/15/17 22:16 97.8 F 04/15/17 21:46 73 22 89/51 97 04/15/17 21:08 75 22 102/44 97 04/15/17 19:44 76 22 97/45 04/15/17 17:35 98.1 F 67 18 103/52 100 Intake and Output 04/15/17 04/16/17 04/16/17 22:59 06:59 14:59 Intake Total 2649.469 0295.0 Output Total 500 626 Balance 570.018 3817.0 Intake: IV 600 800 Sodium Chloride 0.9% 1, 600 800 000 ml @ 100 mls/hr IV . Q10H TE[facility] Rx#:[id number] Intake, IV Titration 68.175 252.0 Amount Octreotide 200 mcg In 68.175 202 Sodium Chloride 0.9% 100 ml @ 50 MCG/HR 25.25 mls/ hr IV .Q4H [facility] Rx#: [id number] Piperacillin-Tazobactam 3 50.0 .375 gm In Dextrose/Water 1 50ml.bag @ 12.5 mls/hr IVPB Q8HR [facility] Rx#: [id number] Oral 0 Blood Product 620 1357 Ffp 24 Cp2d Unit 216 [id number] Ffp 24 Cpd Unit 305 [id number] Rc As-1 Unit 310 [id number] Rc Pheresis As-3 Unit 310 [id number] Rc Pheresis As-3 Unit 310 [id number] Output: Urine 500 625 Urine/Stool Mix 1 Other: Voiding Method Urinal Urinal # Bowel Movements 1 1 Weight 94.6 kg 94.6 kg Not in acute acute distress, resting comfortably in bed. Pain. No shortness of breath.Head exam was generally normal. There was no scleral icterus or corneal arcus. Mucous membranes were moist.Neck was supple and without jugular venous distension, thyromegaly, or carotid bruits. Carotids were easily palpable bilaterally. There was no adenopathy. Patient has conjunctival pallor. No icterus. Lung sounds are diminished in the lung bases bilaterally. Otherwise breath sounds are equal and symmetrical. My normal heart abdomen is distended and there is positive ascites. There is no direct tenderness, rebound tenderness or guarding. Extremities show trace edema and there is no cyanosis or clubbing. Neurologically, awake and alert and moving all flex images without any limitation. Results - Laboratory Findings CBC and BMP: 04/16/17 04:50 04/16/17 04:50 PT/INR, D-dimer PT 18.0 sec (9.0-12.0) H 04/16/17 07:38 INR 1.9 (<1.1) 04/16/17 07:38 Abnormal lab findings: Abnormal Labs 04/15/17 04/15/17 04/15/17 18:30 18:30 18:30 WBC RBC 1.79 L Hgb 5.1 L* D Hct 17.0 L* MCHC 30.3 L RDW 18.8 H Plt Count Monocytes # 1.3 H PT Sodium 128 L Potassium 5.6 H Chloride Carbon Dioxide 16 L BUN 33 H Glucose 72 L POC Glucose (mg/dL) Plasma Lactic Acid Iker 5.4 H* Calcium 7.3 L Total Bilirubin Ammonia 77 H Total Protein 4.9 L Albumin 1.9 L Lipase 565 H Crossmatch 04/15/17 04/15/17 04/15/17 18:30 18:50 21:08 WBC RBC Hgb Hct MCHC RDW Plt Count Monocytes # PT 16.6 H Sodium Potassium Chloride Carbon Dioxide BUN Glucose POC Glucose (mg/dL) Plasma Lactic Acid Iker 6.6 H* Calcium Total Bilirubin Ammonia Total Protein Albumin Lipase Crossmatch See Detail 04/15/17 04/15/17 04/16/17 23:35 23:35 04:50 WBC 11.8 H RBC 2.29 L 1.96 L Hgb 6.8 L* D 5.9 L* Hct 21.7 L 19.2 L* MCHC 30.8 L RDW 18.6 H 18.8 H Plt Count 148 L Monocytes # PT Sodium Potassium Chloride Carbon Dioxide BUN Glucose POC Glucose (mg/dL) Plasma Lactic Acid Iker Calcium Total Bilirubin Ammonia Total Protein Albumin Lipase Crossmatch See Detail 04/16/17 04/16/17 04/16/17 04:50 04:50 07:38 WBC RBC Hgb Hct MCHC RDW Plt Count Monocytes # PT 18.0 H Sodium 128 L Potassium 5.3 H Chloride 108 H Carbon Dioxide 13 L BUN 40 H Glucose POC Glucose (mg/dL) Plasma Lactic Acid Iker 5.3 H* Calcium 6.8 L Total Bilirubin 3.0 H Ammonia Total Protein 4.4 L Albumin 1.6 L Lipase Crossmatch 04/16/17 04/16/17 08:14 11:57 WBC RBC Hgb Hct MCHC RDW Plt Count Monocytes # PT Sodium Potassium Chloride Carbon Dioxide BUN Glucose POC Glucose (mg/dL) 135 H 128 H Plasma Lactic Acid Iker Calcium Total Bilirubin Ammonia Total Protein Albumin Lipase Crossmatch - Diagnostic Findings Chest x-ray: image reviewed Assessment and Plan Plan: Assessment 1 GI bleeding in the setting of liver cirrhosis. This is likely an upper GI bleed as the patient is known to have portal hypertension, esophageal varices and portal hypertensive gastropathy. Last EGD was done on 04/08/2017 and the patient did not have any variceal ligation and the patient also had grade 1 distal esophageal varices. There was no stigmata of any acute bleeding. 2 hypotension secondary to GI bleed, improved 3 profound anemia secondary to GI bleed, status post incision packed RBCs 4 alcoholic liver cirrhosis 5 liver cirrhosis with stigmata of chronic liver failure including coagulopathy and portal hypertension and hepatic encephalopathy 6 ascites 7 coagulopathy with an INR of 1.9 secondary to liver cirrhosis 8 hypertension 9 diabetes mellitus 10 COPD 11 CVA 12 bipolar disorder /depression 13 hypernatremia secondary to above 14 non-anion gap metabolic acidosis Plan We'll continue monitoring this patient in intensive care unit. IV fluids. Packed RBC to maintain hemoglobin above 7. Give 2 units of fresh frozen plasma. IV Protonix. I view of 2 types. EGD today. IV Zosyn as an empiric antibiotic coverage. No evidence of any pneumonia at this point. No evidence of any aspiration. Monitor the hemoglobin. Paracentesis probably later stage as the patient has significant amount of ascitic fluid accumulation. Watch for any signs of hepatic encephalopathy. Monitor neuro status. Monitored hemodynamics. We'll follow.
--- NOTE | 2017-04-16 15:02 | P.HPIM ---
History of Present Illness H&P Date: 04/16/17 56-year-old gentleman with history of alcoholic cirrhosis who was admitted to the hospital multiple times in the last 5 weeks with decompensation. Patient was apparently seen in the hospital over week ago with the GI bleed was noted to have gastric and esophageal varices. No intervention was done at that time Patient comes in to the hospital with complains of and intermittent dizziness and chest pain. Patient noted to have one episode of hematemesis and multiple episodes of dark stools or the last 24 hours. In the emergency room patient was noted to have a hemoglobin around the 5 g per DL ophelia patient was given 3 units of PRBC and triaged to the intensive care unit as an active GI bleed Patient was also given 3 L of crystalloids. Patient is started on Protonix 40 mg IV twice a day and octreotide 50 mg IV At the time of evaluation patient states to be not having any additional symptoms Review of Systems All systems: negative (Noted in HPI) Past Medical History Past Medical History: COPD, CVA/TIA, Diabetes Mellitus, Hyperlipidemia, Hypertension, Liver Disease, Thyroid Disorder Additional Past Medical History / Comment(s): Alcoholism, alcoholic liver cirrhosis, history of hepatic encephalopathy, portal hypertension and esophageal varices and portal hypertensive gastropathy, bipolar disorder, depression, CVA, COPD, diabetes mellitus, hypertension, hypothyroidism History of Any Multi-Drug Resistant Organisms: None Reported Past Surgical History: Orthopedic Surgery Additional Past Surgical History / Comment(s): Right nephrectomy, bilateral knee surgery, stents for kidney stones, EGD Past Psychological History: Bipolar, Depression Smoking Status: Current every day smoker Past Alcohol Use History: None Reported Additional Past Alcohol Use History / Comment(s): has not drank in the past month Past Drug Use History: None Reported - Past Family History Mother Additional Family Medical History / Comment(s): skin cancer Medications and Allergies Home Medications Medication Instructions Recorded Confirmed Type Ferrous Sulfate [Iron (65 MG 325 mg PO BID 02/24/17 04/15/17 History Elemental)] Mirtazapine [Remeron] 45 mg PO HS 02/24/17 04/15/17 History Pravastatin Sodium [Pravachol] 40 mg PO DAILY 02/24/17 04/15/17 History metFORMIN HCL [Glucophage] 500 mg PO BID 02/24/17 04/15/17 History Furosemide [Lasix] 20 mg PO BID 04/05/17 04/15/17 History Nitroglycerin Sl Tabs [Nitrostat] 0.4 mg SUBLINGUAL Q5M PRN 04/05/17 04/15/17 History Sennosides [Senokot] 8.6 mg PO DAILY PRN 04/05/17 04/15/17 History Spironolactone [Aldactone] 100 mg PO BID 04/05/17 04/15/17 History amLODIPine [Norvasc] 10 mg PO DAILY 04/05/17 04/15/17 History Albuterol Inhaler [Ventolin Hfa 1 - 2 puff INHALATION RT-Q4H PRN 04/15/17 History Inhaler] Lactulose [Cephulac] 30 gm PO QID 04/15/17 04/15/17 History Multivitamins, Thera [Multivitamin 1 tab PO DAILY@1200 04/15/17 04/15/17 History (formulary)] QUEtiapine [SEROquel] 100 mg PO HS 04/15/17 04/15/17 History Allergies Allergy/AdvReac Type Severity Reaction Status Date / Time Penicillins Allergy Unknown Verified 04/15/17 17:40 Childhood Physical Exam Vitals: Vital Signs Temp Pulse Resp BP Pulse Ox 04/16/17 14:53 98.1 F 14 112/45 100 04/16/17 14:43 98 F 77 14 112/50 100 04/16/17 14:42 98 F 77 14 112/50 100 04/16/17 14:31 97.9 F 73 14 107/45 100 04/16/17 14:21 97.9 F 74 20 113/46 100 04/16/17 14:01 97.8 F 74 18 122/44 100 04/16/17 14:00 74 13 122/44 99 04/16/17 13:16 97.9 F 77 14 88/37 100 04/16/17 13:15 97.9 F 72 14 96/43 100 04/16/17 13:10 98 F 73 16 91/44 100 04/16/17 13:06 98 F 73 18 91/44 100 04/16/17 13:00 97.7 F 73 17 109/46 100 04/16/17 12:16 97.9 F 18 105/46 100 04/16/17 12:00 97.9 F 68 12 114/43 100 04/16/17 11:00 73 17 114/50 100 04/16/17 10:32 97.7 F 71 20 103/47 100 04/16/17 10:22 97.5 F L 74 22 119/57 100 04/16/17 10:02 98 F 78 21 115/59 99 04/16/17 10:00 76 20 106/40 100 04/16/17 09:52 97.9 F 76 20 106/40 100 04/16/17 09:00 73 15 108/51 100 04/16/17 08:00 97.8 F 74 16 97/38 100 04/16/17 07:00 62 19 86/40 100 04/16/17 06:00 64 13 78/42 99 04/16/17 05:00 79 18 103/56 97 04/16/17 04:00 97.8 F 75 20 108/55 100 04/16/17 03:47 97.8 F 70 22 78/46 100 04/16/17 03:00 66 16 72/43 99 04/16/17 02:10 97.8 F 76 26 H 72/43 98 04/16/17 02:00 74 16 84/43 100 04/16/17 01:40 98.0 F 72 20 86/52 97 04/16/17 01:30 98.2 F 77 19 84/44 96 04/16/17 01:20 97.6 F 68 20 82/48 98 04/16/17 01:00 71 14 101/50 98 04/16/17 00:00 97.8 F 71 29 H 93/40 100 04/15/17 23:43 97.8 F 72 22 93/56 98 04/15/17 23:13 97.0 F L 74 24 90/45 100 04/15/17 23:03 96.9 F L 73 24 95/50 95 04/15/17 22:25 79 24 90/42 100 04/15/17 22:16 97.8 F 05 21:46 73 22 89/51 97 04/15/17 21:08 75 22 102/44 97 04/15/17 19:44 76 22 97/45 05 17:35 98.1 F 67 18 103/52 100 Intake and Output 04/15/17 04/16/17 04/16/17 22:59 06:59 14:59 Intake Total 3150.939 5187.0 Output Total 500 626 Balance 744.614 1184.0 Intake: IV 600 800 Sodium Chloride 0.9% 1, 600 800 000 ml @ 100 mls/hr IV . Q10H [facility] Rx#:[id number] Intake, IV Titration 68.175 252.0 Amount Octreotide 200 mcg In 68.175 202 Sodium Chloride 0.9% 100 ml @ 50 MCG/HR 25.25 mls/ hr IV .Q4H [facility] Rx#: [id number] Piperacillin-Tazobactam 3 50.0 .375 gm In Dextrose/Water 1 50ml.bag @ 12.5 mls/hr IVPB Q8HR [facility] Rx#: [id number] Oral 0 Blood Product 620 1585 Ffp 24 Cp2d Unit 216 [id number] Ffp 24 Cp2d Unit 228 [id number] Ffp 24 Cp2d Unit 0 [id number] Ffp 24 Cpd Unit 305 [id number] Rc As-1 Unit 310 [id number] Rc Pheresis As-3 Unit 310 [id number] Rc Pheresis As-3 Unit 310 [id number] Output: Urine 500 625 Urine/Stool Mix 1 Other: Voiding Method Urinal Urinal # Bowel Movements 1 1 Weight 94.6 kg 94.6 kg Physical exam Gen. appearance oriented 3 in no distress Neck is supple no JVD Lungs good air entry clear to auscultation no rhonchi or wheezing Heart S1-S2 heard regular rate and rhythm no murmurs appreciated Abdomen distended nontender to palpation no organomegaly Neurologically cranial nerves II-12 grossly intact no focal motor or sensory deficits noted Skin no abnormalities appreciated Results CBC & Chem 7: 04/16/17 04:50 04/16/17 04:50 Labs: Abnormal Lab Results - Last 24 Hours (Table) 04/15/17 04/15/17 04/15/17 Range/Units 18:30 18:30 18:30 WBC (3.8-10.6) k/uL RBC 1.79 L (4.30-5.90) m/uL Hgb 5.1 L* D (13.0-17.5) gm/dL Hct 17.0 L* (39.0-53.0) % MCHC 30.3 L (31.0-37.0) g/dL RDW 18.8 H (11.5-15.5) % Plt Count (150-450) k/uL Monocytes # 1.3 H (0-1.0) k/uL PT (9.0-12.0) sec Sodium 128 L (137-145) mmol/L Potassium 5.6 H (3.5-5.1) mmol/L Chloride (98-107) mmol/L Carbon Dioxide 16 L (22-30) mmol/L BUN 33 H (9-20) mg/dL Glucose 72 L (74-99) mg/dL POC Glucose (mg/dL) (75-99) mg/dL Plasma Lactic Acid Iker 5.4 H* (0.7-2.0) mmol/L Calcium 7.3 L (8.4-10.2) mg/dL Total Bilirubin (0.2-1.3) mg/dL Ammonia 77 H (<30) umol/L Total Protein 4.9 L (6.3-8.2) g/dL Albumin 1.9 L (3.5-5.0) g/dL Lipase 565 H (23-300) U/L Crossmatch 04/15/17 04/15/17 04/15/17 Range/Units 18:30 18:50 21:08 WBC (3.8-10.6) k/uL RBC (4.30-5.90) m/uL Hgb (13.0-17.5) gm/dL Hct (39.0-53.0) % MCHC (31.0-37.0) g/dL RDW (11.5-15.5) % Plt Count (150-450) k/uL Monocytes # (0-1.0) k/uL PT 16.6 H (9.0-12.0) sec Sodium (137-145) mmol/L Potassium (3.5-5.1) mmol/L Chloride (98-107) mmol/L Carbon Dioxide (22-30) mmol/L BUN (9-20) mg/dL Glucose (74-99) mg/dL POC Glucose (mg/dL) (75-99) mg/dL Plasma Lactic Acid Iker 6.6 H* (0.7-2.0) mmol/L Calcium (8.4-10.2) mg/dL Total Bilirubin (0.2-1.3) mg/dL Ammonia (<30) umol/L Total Protein (6.3-8.2) g/dL Albumin (3.5-5.0) g/dL Lipase (23-300) U/L Crossmatch See Detail 04/15/17 04/15/17 04/16/17 Range/Units 23:35 23:35 04:50 WBC 11.8 H (3.8-10.6) k/uL RBC 2.29 L 1.96 L (4.30-5.90) m/uL Hgb 6.8 L* D 5.9 L* (13.0-17.5) gm/dL Hct 21.7 L 19.2 L* (39.0-53.0) % MCHC 30.8 L (31.0-37.0) g/dL RDW 18.6 H 18.8 H (11.5-15.5) % Plt Count 148 L (150-450) k/uL Monocytes # (0-1.0) k/uL PT (9.0-12.0) sec Sodium (137-145) mmol/L Potassium (3.5-5.1) mmol/L Chloride (98-107) mmol/L Carbon Dioxide (22-30) mmol/L BUN (9-20) mg/dL Glucose (74-99) mg/dL POC Glucose (mg/dL) (75-99) mg/dL Plasma Lactic Acid Iker (0.7-2.0) mmol/L Calcium (8.4-10.2) mg/dL Total Bilirubin (0.2-1.3) mg/dL Ammonia (<30) umol/L Total Protein (6.3-8.2) g/dL Albumin (3.5-5.0) g/dL Lipase (23-300) U/L Crossmatch See Detail 04/16/17 04/16/17 04/16/17 Range/Units 04:50 04:50 07:38 WBC (3.8-10.6) k/uL RBC (4.30-5.90) m/uL Hgb (13.0-17.5) gm/dL Hct (39.0-53.0) % MCHC (31.0-37.0) g/dL RDW (11.5-15.5) % Plt Count (150-450) k/uL Monocytes # (0-1.0) k/uL PT 18.0 H (9.0-12.0) sec Sodium 128 L (137-145) mmol/L Potassium 5.3 H (3.5-5.1) mmol/L Chloride 108 H (98-107) mmol/L Carbon Dioxide 13 L (22-30) mmol/L BUN 40 H (9-20) mg/dL Glucose (74-99) mg/dL POC Glucose (mg/dL) (75-99) mg/dL Plasma Lactic Acid Iker 5.3 H* (0.7-2.0) mmol/L Calcium 6.8 L (8.4-10.2) mg/dL Total Bilirubin 3.0 H (0.2-1.3) mg/dL Ammonia (<30) umol/L Total Protein 4.4 L (6.3-8.2) g/dL Albumin 1.6 L (3.5-5.0) g/dL Lipase (23-300) U/L Crossmatch 04/16/17 04/16/17 Range/Units 08:14 11:57 WBC (3.8-10.6) k/uL RBC (4.30-5.90) m/uL Hgb (13.0-17.5) gm/dL Hct (39.0-53.0) % MCHC (31.0-37.0) g/dL RDW (11.5-15.5) % Plt Count (150-450) k/uL Monocytes # (0-1.0) k/uL PT (9.0-12.0) sec Sodium (137-145) mmol/L Potassium (3.5-5.1) mmol/L Chloride (98-107) mmol/L Carbon Dioxide (22-30) mmol/L BUN (9-20) mg/dL Glucose (74-99) mg/dL POC Glucose (mg/dL) 135 H 128 H (75-99) mg/dL Plasma Lactic Acid Iker (0.7-2.0) mmol/L Calcium (8.4-10.2) mg/dL Total Bilirubin (0.2-1.3) mg/dL Ammonia (<30) umol/L Total Protein (6.3-8.2) g/dL Albumin (3.5-5.0) g/dL Lipase (23-300) U/L Crossmatch Thrombosis Risk Factor Assmnt - Choose All That Apply Each Factor Represents 1 point: Abnormal pulmonary function (COPD), Age 41-60 years, Sepsis (< 1month) Other Risk Factors: No Other congenital or acquired thrombophilia - If yes, enter type in comment: No Thrombosis Risk Factor Assessment Total Risk Factor Score: 3 Thrombosis Risk Factor Assessment Level: Moderate Risk Assessment and Plan Plan: #1 acute upper GI blood loss likely variceal in nature #2 non-anion gap metabolic acidosis #3 hyponatremia likely hypovolemic #4 hyperkalemia #5 decompensated liver cirrhosis #6 lactic acidosis #7 hypoalbuminemia #8 hypotension due to blood loss Plan Continue ongoing care. Once patient undergoes a EGD with possible intervention thereafter patient can be started on Midrin 10 mg 3 times a day. Repeat labs in a.m. Patient can be started on IV Lasix once blood pressures are stable Continue with Protonix and octreotide at this time Once patient is stable we'll need to diurese out the large volume that was given in resuscitation
[2017-04-16] MEDS ORDERED: IV FLUID CONTINUATION 1,000 ML IV ONE (15:55)
[2017-04-16 16:13] LABS: Anisocytosis Slight; Basophils # (A) 0.1 k/uL (0-0.2); Basophils % (A) 1 %; CH 29.7; CHCM 33.4; Eosinophils # (A) 0.1 k/uL (0-0.7); Eosinophils % (A) 1 %; HCT 20.8 % (39.0-53.0); HDW 4.83; Hypochromasia Moderate; Luc # (Auto) 0.42; Luc % (Auto) 4; Lymphocytes # (A) 1.8 k/uL (1.0-4.8); Lymphocytes % (A) 19 %; MCH 30.1 pg (25.0-35.0); MCHC 33.4 g/dL (31.0-37.0); Monocytes # (A) 1.1 k/uL (0-1.0); Monocytes % (A) 11 %; Neutrophils # (A) 6.2 k/uL (1.3-7.7); Neutrophils % (A) 64 %; Poikilocytosis Marked; RDW 19.1 % (11.5-15.5); WBC 9.7 k/uL (3.8-10.6); WBC (Perox) 8.98
[2017-04-16 16:18] LABS: HGB 6.9 gm/dL (13.0-17.5); MCV 90.1 fL (80.0-100.0)
[2017-04-16 16:20] LABS: INR 1.5 (<1.1); Prothrombin Time 14.5 sec (9.0-12.0)
[2017-04-16] MEDS ORDERED: LIDOCAINE 1% INJ 10MG/ML (20 ML MDV) ONE (16:21)
[2017-04-16] MEDS ORDERED: PROPOFOL 10 MG/ML 20 ML VIAL IV ONE (16:21)
--- NOTE | 2017-04-16 17:21 | P.PCN ---
Date of Procedure: 04/16/17 Preoperative Diagnosis: Postoperative Diagnosis: Procedure(s) Performed: Procedure: Esophagogastroduodenoscopy. PREOPERATIVE DIAGNOSIS: Severe anemia and recent episode of upper GI bleed. POSTOPERATIVE DIAGNOSIS: 1. Gastric varices with stigmata of prior bleeding and grade 1 to 2 distal esophageal varices with no stigmata of recent bleed. 2. Portal hypertensive gastropathy. 3. No active bleeding noted on this exam. Preparation and sedation: Was provided by anesthesia. Brief Clinical history: The patient is a 56-year-old male with past medical history of long-standing EtOH abuse and alcoholic cirrhosis with portal HTN and hepatic encephalopathy and esophageal and gastric varices and portal gastropathy , bipolar depression, CVA, COPD, diabetes mellitus, hypertension and hypothyroidism. Patient was evaluated by our service a week ago in regards to hepatic encephalopathy with elevated ammonia level as well as underlying alcohol liver disease/hepatitis. During his hospitalization hemoglobin decreased to 5.5 without overt bleeding however prior to admission there was reports that he may have had hematemesis. He received 3 units of blood and underwent EGD evaluation by Dr. Arzola on 04/08/2017 with findings of gastric varices and grade 1 to 2 distal esophageal varices with no stigmata of recent bleed as well as portal hypertensive gastropathy. He was discharged on 2016 and returned yesterday with reports of increased abdominal distention, hematemesis and bloody bowel movements red/black mix. His discharge hemoglobin was 7.7 on the . Admission hemoglobin 5.1 last night. He has received 2 units of blood and repeat hemoglobin was 6.8 but decreased to 5.9 this morning. He is receiving a third unit of blood with repeat CBC after infusion. Receiving IV Sandostatin. INR 1.9, received 4 units of FFP prior to this EGD. Total bilirubin 3.0. AST 54. ALT 35. Alkaline phosphatase 79. Ammonia 77. Other details as per H&P and dictated consultation. This evaluation is to asses for the source of bleeding and guide therapy. PROCEDURE: Procedure was performed at the bedside in ICU. After informed consent was obtained, IV sedation was administered by Anesthesia under continuous monitoring. Initially the Olympus GIF-160 video upper endoscope was inserted into the mouth. Esophagus was intubated without any difficulty. The endoscope was gradually advanced into the stomach and duodenum which were carefully examined. The bulb and the second part of the duodenum appeared normal. The scope at this time was withdrawn to the stomach which was adequately insufflated with air, and upon careful examination, mucosa of the antrum, body, cardia and the fundus had changes consistent with portal gastric hypertensive gastropathy. In the fundus of the stomach there was isolated large gastric varix identified with stigmata of recent bleed. A picture was obtained. The scope was then withdrawn into the esophagus. The GE junction was located at 39 cm from the incisors. There were grade 1 to 2 distal esophageal varices seen. The rest of the esophagus appeared normal. There were no erosions or ulcerations seen. Additional pictures were obtained in the esophagus. The patient tolerated the procedure well. Plan: The findings of this examination were discussed with the patient and family. Sandostatin will be continued. Consideration can be made for transfer to a tertiary center for possible TIPS. I will discuss with you and follow with you with interest. Implants: Indications for Procedure: Operative Findings: Description of Procedure:
[2017-04-16 17:45] LABS: Glucose,Whole Blood 111 mg/dL (75-99)
[2017-04-16] MEDS: MIDODRINE 5 MG TAB PO SCH (17:55)
[2017-04-16] MEDS ORDERED: FUROSEMIDE 10 MG/ML 4 ML VIAL IV ONE (19:00)
[2017-04-16 22:55] LABS: Anisocytosis Slight; Basophils # (A) 0.1 k/uL (0-0.2); Basophils % (A) 1 %; CH 29.5; CHCM 32.6; Eosinophils # (A) 0.2 k/uL (0-0.7); Eosinophils % (A) 2 %; HCT 23.7 % (39.0-53.0); HDW 4.44; HGB 7.6 gm/dL (13.0-17.5); Hypochromasia Moderate; Luc # (Auto) 0.27; Luc % (Auto) 3; Lymphocytes # (A) 1.4 k/uL (1.0-4.8); Lymphocytes % (A) 18 %; MCH 29.4 pg (25.0-35.0); MCHC 32.1 g/dL (31.0-37.0); MCV 91.7 fL (80.0-100.0); Mean Platelet Volume 8.2; Monocytes # (A) 0.9 k/uL (0-1.0); Monocytes % (A) 11 %; Neutrophils # (A) 5.1 k/uL (1.3-7.7); Neutrophils % (A) 65 %; Poikilocytosis Moderate; RBC 2.59 m/uL (4.30-5.90); RDW 18.6 % (11.5-15.5); WBC 7.9 k/uL (3.8-10.6); WBC (Perox) 7.93
[2017-04-17] MEDS: OCTREOTIDE 200 MCG in SODIUM CHLORIDE 0.9% 100 ML IV SCH ×4 (00:30→11:36)
[2017-04-17] MEDS: PIPERACILLIN-TAZOBACTAM 3.375 GM in DEXTROSE/WATER 1 50ML.BAG IVPB SCH ×3 (00:32→16:26)
[2017-04-17] MEDS: SODIUM CHLORIDE 0.9% 1,000 ML IV SCH ×2 (02:44→13:08)
[2017-04-17 06:12] LABS: Anisocytosis Slight; Basophils % (A) 0 %; CH 29.7; CHCM 33.1; Eosinophils # (A) 0.1 k/uL (0-0.7); Eosinophils % (A) 2 %; HCT 23.4 % (39.0-53.0); HDW 4.59; HGB 7.7 gm/dL (13.0-17.5); Hypochromasia Moderate; Luc # (Auto) 0.27; Luc % (Auto) 4; Lymphocytes # (A) 1.2 k/uL (1.0-4.8); Lymphocytes % (A) 16 %; Monocytes % (A) 13 %; Neutrophils # (A) 5.1 k/uL (1.3-7.7); Neutrophils % (A) 66 %; Poikilocytosis Moderate; RBC 2.57 m/uL (4.30-5.90); RDW 18.9 % (11.5-15.5); WBC 7.6 k/uL (3.8-10.6); WBC (Perox) 7.66
[2017-04-17 06:19] LABS: INR 1.6 (<1.1); Prothrombin Time 15.4 sec (9.0-12.0)
[2017-04-17 06:37] LABS: ALT 50 U/L (21-72); AST 94 U/L (17-59); Alkaline Phosphatase 94 U/L (38-126); Anion Gap 5 mmol/L; Bilirubin, Delta 1.2 mg/dL (0.0-0.2); Blood Urea Nitrogen 28 mg/dL (9-20); Calcium 7.4 mg/dL (8.4-10.2); Carbon Dioxide 19 mmol/L (22-30); Chloride 110 mmol/L (98-107); Glucose 92 mg/dL (74-99); Magnesium 2.2 mg/dL (1.6-2.3); Non-African American GFR(MDRD) >60 (>60 ml/min/1.73 sqM); Potassium 3.9 mmol/L (3.5-5.1); Sodium 134 mmol/L (137-145); Total Bilirubin 2.6 mg/dL (0.2-1.3); Total Protein 5.4 g/dL (6.3-8.2)
[2017-04-17 07:31] LABS: Glucose,Whole Blood 100 mg/dL (75-99)
--- NOTE | 2017-04-17 08:01 | XR ---
EXAMINATION TYPE: XR chest 1V DATE OF EXAM: 04/17/2017 7:10 AM COMPARISON: 04/16/2017 HISTORY: 56 year-old male shortness of breath TECHNIQUE: Single frontal view of the chest is obtained. FINDINGS: There is now interval clearance at the left base and a new band of atelectasis at the right base. Hea rt is normal size. Upper to mid lungs appear clear. IMPRESSION: Resolution of previous opacity at the left base with a new band of atelectasis at the right base.
[2017-04-17] MEDS: MIDODRINE 5 MG TAB PO SCH ×4 (09:00→17:44)
[2017-04-17] MEDS: PANTOPRAZOLE 40 MG/10 ML VIAL IVP SCH ×2 (09:01→20:27)
--- NOTE | 2017-04-17 10:07 | P.PN ---
Subjective Principal diagnosis: Gastrointestinal bleeding This is a 56-year-old male patient with known history of alcoholic liver cirrhosis in addition multiple to multiple other medical problems and comorbidities. The patient was drinking alcohol up to recently and apparently quit drinking approximately a month ago. He was in the hospital last week and he was seen by GI services regarding GI bleeding. He was admitted to the hospital for the same. Note that during his hospitalization, the patient's hematoma was at 5.5 and he got transfused with packed RBC a total of 3 units and he was evaluated by gastroenterology and underwent a EGD on 04/08/2017 and he was found to have gastric varices with a grade 1-2 distal esophageal varices without stigmata of any recent bleeding. He also had portal hypertensive gastropathy. He was discharged home to be admitted with the bowels of melanotic bowel movements yesterday and another episode this morning. On admission his hemoglobin was down to 5.1. The patient has already received 2 units of packed RBC. Repeat hemoglobin is up to 6.8 and subsequently dropped down to 5.9 this morning. Based on this, the patient will be given another unit of packed RBC. The patient is on octreotide. The patient will be undergoing another EGD by gastroenterology. Note that he is seated total of 4 units of IV fluids and currently he is on a maintenance IV fluids. He is a bit lethargic. A bit sleepy. Ammonia level is at 77. Abdomen is distended and there is positive ascites. No fever. No chills. No abdominal pain. No agitation. The patient's chest x-ray is free of any acute pulmonary infiltrates or pneumonias. I do not see any evidence of any pneumonia. The patient is seen again today in 04/17/2017 in follow-up in the intensive care unit. He is awake and alert in no acute distress. He did undergo EGD yesterday which revealed gastric varices with stigmata of prior bleeding and grade 1-2 distal esophageal varices with no stigmata of recent bleed. There was portal hypertensive gastropathy. No active bleeding throughout the exam. He has had no active bleeding throughout the night. Current hemoglobin 7.7. He is status post 4 units of packed red blood cell infusions and 4 units of fresh frozen plasma. He remains on Octreotide at 50 g per hour. He remains on Protonix IV 40 mg twice a day. He has some vague abdominal discomfort. Otherwise no complaints. He currently has no pulmonary complaints. No shortness of breath, cough or congestion. He is maintaining good O2 saturations in the 90s on room air. He is covered with Zosyn. Objective - Vital Signs Vital signs: Vital Signs Temp 97.8 F 04/17/17 04:00 Pulse 72 04/17/17 07:00 Resp 22 04/17/17 07:00 BP 115/54 04/17/17 07:00 Pulse Ox 97 04/17/17 07:00 Intake & Output 04/16/17 04/17/17 04/17/17 18:59 06:59 18:59 Intake Total 4250.0 1862.113 300 Output Total 1026 1850 Balance 3224.0 12.113 300 Weight 98.2 kg Intake: IV 1350 1200 300 Sodium Chloride 0.9% 1, 1200 1200 300 000 ml @ 100 mls/hr IV . Q10H [facility] Rx#:[id number] Intake, IV Titration 378.0 352.113 Amount Octreotide 200 mcg In 303 339.613 Sodium Chloride 0.9% 100 ml @ 50 MCG/HR 25.25 mls/ hr IV .Q4H [facility] Rx#: [id number] Piperacillin-Tazobactam 3 75.0 12.5 .375 gm In Dextrose/Water 1 50ml.bag @ 12.5 mls/hr IVPB Q8HR TEQU[facility]A Rx#: [id number] Oral 50 Blood Product 2472 310 Ffp 24 Cp2d Unit 216 [id number] Ffp 24 Cp2d Unit 228 [id number] Ffp 24 Cp2d Unit 177 [id number] Ffp 24 Cpd Unit 305 [id number] Rc As-1 Unit 310 [id number] Rc Pheresis As-3 Unit 0 310 [id number] Output: Urine 1025 1850 Urine/Stool Mix 1 Other: Voiding Method Urinal Urinal # Bowel Movements 1 - Exam Not in acute acute distress, resting comfortably in bed. Pain. No shortness of breath.Head exam was generally normal. There was no scleral icterus or corneal arcus. Mucous membranes were moist.Neck was supple and without jugular venous distension, thyromegaly, or carotid bruits. Carotids were easily palpable bilaterally. There was no adenopathy. Patient has conjunctival pallor. No icterus. Lung sounds are diminished in the lung bases bilaterally. Otherwise breath sounds are equal and symmetrical. My normal heart abdomen is distended and there is positive ascites. There is no direct tenderness, rebound tenderness or guarding. Extremities show trace edema and there is no cyanosis or clubbing. Neurologically, awake and alert and moving all flex images without any limitation. - Labs CBC & Chem 7: 04/17/17 05:31 04/17/17 05:31 Labs: Abnormal Lab Results - Last 24 Hours (Table) 04/15/17 04/15/17 04/16/17 Range/Units 18:50 23:35 11:57 RBC (4.30-5.90) m/uL Hgb (13.0-17.5) gm/dL Hct (39.0-53.0) % RDW (11.5-15.5) % Monocytes # (0-1.0) k/uL PT (9.0-12.0) sec Sodium (137-145) mmol/L Chloride (98-107) mmol/L Carbon Dioxide (22-30) mmol/L BUN (9-20) mg/dL POC Glucose (mg/dL) 128 H (75-99) mg/dL Calcium (8.4-10.2) mg/dL Total Bilirubin (0.2-1.3) mg/dL Unconjugated Bilirubin (0.0-1.1) mg/dL Delta Bilirubin (0.0-0.2) mg/dL AST (17-59) U/L Total Protein (6.3-8.2) g/dL Albumin (3.5-5.0) g/dL Lipase (23-300) U/L Crossmatch See Detail See Detail 04/16/17 04/16/17 04/16/17 Range/Units 16:04 16:04 17:43 RBC 2.30 L (4.30-5.90) m/uL Hgb 6.9 L* (13.0-17.5) gm/dL Hct 20.8 L (39.0-53.0) % RDW 19.1 H (11.5-15.5) % Monocytes # 1.1 H (0-1.0) k/uL PT 14.5 H (9.0-12.0) sec Sodium (137-145) mmol/L Chloride (98-107) mmol/L Carbon Dioxide (22-30) mmol/L BUN (9-20) mg/dL POC Glucose (mg/dL) 111 H (75-99) mg/dL Calcium (8.4-10.2) mg/dL Total Bilirubin (0.2-1.3) mg/dL Unconjugated Bilirubin (0.0-1.1) mg/dL Delta Bilirubin (0.0-0.2) mg/dL AST (17-59) U/L Total Protein (6.3-8.2) g/dL Albumin (3.5-5.0) g/dL Lipase (23-300) U/L Crossmatch 04/16/17 04/17/17 04/17/17 Range/Units 22:36 05:31 05:31 RBC 2.59 L 2.57 L (4.30-5.90) m/uL Hgb 7.6 L 7.7 L (13.0-17.5) gm/dL Hct 23.7 L 23.4 L (39.0-53.0) % RDW 18.6 H 18.9 H (11.5-15.5) % Monocytes # (0-1.0) k/uL PT (9.0-12.0) sec Sodium 134 L (137-145) mmol/L Chloride 110 H (98-107) mmol/L Carbon Dioxide 19 L (22-30) mmol/L BUN 28 H (9-20) mg/dL POC Glucose (mg/dL) (75-99) mg/dL Calcium 7.4 L (8.4-10.2) mg/dL Total Bilirubin 2.6 H (0.2-1.3) mg/dL Unconjugated Bilirubin 1.3 H (0.0-1.1) mg/dL Delta Bilirubin 1.2 H (0.0-0.2) mg/dL AST 94 H (17-59) U/L Total Protein 5.4 L (6.3-8.2) g/dL Albumin 2.1 L (3.5-5.0) g/dL Lipase 394 H (23-300) U/L Crossmatch 04/17/17 04/17/17 Range/Units 05:31 07:29 RBC (4.30-5.90) m/uL Hgb (13.0-17.5) gm/dL Hct (39.0-53.0) % RDW (11.5-15.5) % Monocytes # (0-1.0) k/uL PT 15.4 H (9.0-12.0) sec Sodium (137-145) mmol/L Chloride (98-107) mmol/L Carbon Dioxide (22-30) mmol/L BUN (9-20) mg/dL POC Glucose (mg/dL) 100 H (75-99) mg/dL Calcium (8.4-10.2) mg/dL Total Bilirubin (0.2-1.3) mg/dL Unconjugated Bilirubin (0.0-1.1) mg/dL Delta Bilirubin (0.0-0.2) mg/dL AST (17-59) U/L Total Protein (6.3-8.2) g/dL Albumin (3.5-5.0) g/dL Lipase (23-300) U/L Crossmatch Microbiology - Last 24 Hours (Table) 04/16/17 04:50 Blood Culture - Preliminary Blood No Growth after 24 hours Assessment and Plan Plan: Assessment 1 GI bleeding in the setting of liver cirrhosis. This is likely an upper GI bleed as the patient is known to have portal hypertension, esophageal varices and portal hypertensive gastropathy. Last EGD was done on 04/08/2017 and the patient did not have any variceal ligation and the patient also had grade 1 distal esophageal varices. There was no stigmata of any acute bleeding. Repeat EGD done on 04/16/2017 revealed gastric varices with stigmata of prior bleeding and a grade 1-2 distal esophageal varices with no stigmata of recent bleed. There is portal hypertensive gastropathy. No active bleeding during this exam. 2 hypotension secondary to GI bleed, improved, not requiring pressors. 3 profound anemia secondary to GI bleed, status post 4 units packed RBCs, current hemoglobin 7.7. 4 alcoholic liver cirrhosis 5 liver cirrhosis with stigmata of chronic liver failure including coagulopathy and portal hypertension and hepatic encephalopathy 6 ascites 7 coagulopathy with an INR of 1.9 secondary to liver cirrhosis, currently 1.6. 8 hypertension 9 diabetes mellitus 10 COPD 11 CVA 12 bipolar disorder /depression 13 hypernatremia secondary to above 14 non-anion gap metabolic acidosis Plan: The patient was seen and evaluated by Dr. Moore. His chest x-ray shows resolution of the previous opacity in the left base and some atelectasis at the right base. We'll add bronchodilators and encourage cough and deep breathing exercises and initiate incentive spirometer. He is currently stable with hemoglobin of 7.7. Currently hemodynamically stable. We will discontinue the octreotide. He remains on IV Protonix. We will resume his home medications. We 'll transfer him out of the intensive care unit. We'll continue to monitor his hemoglobins and watch for any recurrence of bleeding.
[2017-04-17] MEDS ORDERED: NITROGLYCERIN SL TABS 0.4 MG TAB SUBLINGUAL PRN (10:09)
[2017-04-17] MEDS ORDERED: SENNOSIDES 8.6 MG TAB PO PRN (10:09)
[2017-04-17] MEDS ORDERED: ARTIFICIAL TEARS-HYPROMELLOSE DROPS 15 ML BTL BOTH EYES PRN (10:09)
[2017-04-17] MEDS: NICOTINE 14MG/24HR PATCH TRANSDERM SCH (11:35)
[2017-04-17] MEDS: SPIRONOLACTONE 25 MG TAB PO SCH ×2 (11:36→20:27)
[2017-04-17] MEDS: PRAVASTATIN SODIUM 40 MG TAB PO SCH ×2 (11:37→13:04)
[2017-04-17] MEDS: PROPRANOLOL 10 MG TAB PO SCH ×5 (11:39→22:05)
[2017-04-17] MEDS: FOLIC ACID 1 MG TAB PO SCH (11:42)
[2017-04-17] MEDS: THIAMINE 100 MG TAB PO SCH (11:42)
[2017-04-17 11:45] LABS: Anisocytosis Slight; Basophils % (A) 0 %; CH 29.7; CHCM 32.9; Eosinophils # (A) 0.2 k/uL (0-0.7); Eosinophils % (A) 2 %; HCT 24.2 % (39.0-53.0); HDW 4.51; HGB 8.1 gm/dL (13.0-17.5); Hypochromasia Moderate; Luc # (Auto) 0.25; Luc % (Auto) 3; Lymphocytes # (A) 1.2 k/uL (1.0-4.8); Lymphocytes % (A) 14 %; MCH 30.6 pg (25.0-35.0); MCHC 33.5 g/dL (31.0-37.0); MCV 91.4 fL (80.0-100.0); Mean Platelet Volume 8.2; Monocytes # (A) 1.1 k/uL (0-1.0); Monocytes % (A) 13 %; Neutrophils # (A) 5.7 k/uL (1.3-7.7); Neutrophils % (A) 68 %; Poikilocytosis Moderate; RBC 2.65 m/uL (4.30-5.90); RDW 18.9 % (11.5-15.5); WBC 8.4 k/uL (3.8-10.6); WBC (Perox) 8.23
[2017-04-17 12:16] LABS: Glucose,Whole Blood 114 mg/dL (75-99)
[2017-04-17] MEDS: LACTULOSE 20 GM/30 ML CUP PO SCH ×3 (13:08→20:27)
[2017-04-17] MEDS: MAGNESIUM OXIDE 400 MG TAB PO SCH ×2 (16:24→20:27)
[2017-04-17] MEDS: FUROSEMIDE 20 MG TAB PO SCH (17:44)
[2017-04-17 17:55] LABS: Anisocytosis Slight; Basophils % (A) 1 %; CH 29.5; CHCM 31.9; Eosinophils # (A) 0.2 k/uL (0-0.7); Eosinophils % (A) 3 %; HCT 24.6 % (39.0-53.0); HDW 4.22; HGB 7.8 gm/dL (13.0-17.5); Hypochromasia Moderate; Luc # (Auto) 0.23; Luc % (Auto) 3; Lymphocytes # (A) 1.2 k/uL (1.0-4.8); Lymphocytes % (A) 16 %; MCH 29.9 pg (25.0-35.0); MCHC 31.9 g/dL (31.0-37.0); MCV 93.6 fL (80.0-100.0); Macrocytosis Slight; Mean Platelet Volume 8.1; Monocytes # (A) 0.9 k/uL (0-1.0); Monocytes % (A) 13 %; Neutrophils # (A) 4.8 k/uL (1.3-7.7); Neutrophils % (A) 65 %; Poikilocytosis Moderate; RBC 2.63 m/uL (4.30-5.90); RDW 18.8 % (11.5-15.5); WBC 7.4 k/uL (3.8-10.6); WBC (Perox) 7.72
--- NOTE | 2017-04-17 18:28 | P.PN ---
Subjective 56-year-old gentleman with history of alcoholic cirrhosis who was admitted to the hospital multiple times in the last 5 weeks with decompensation. Patient was apparently seen in the hospital over week ago with the GI bleed was noted to have gastric and esophageal varices. No intervention was done at that time Patient comes in to the hospital with complains of and intermittent dizziness and chest pain. Patient noted to have one episode of hematemesis and multiple episodes of dark stools or the last 24 hours. In the emergency room patient was noted to have a hemoglobin around the 5 g per DL ophelia patient was given 3 units of PRBC and triaged to the intensive care unit as an active GI bleed Patient was also given 3 L of crystalloids. Patient is started on Protonix 40 mg IV twice a day and octreotide 50 mg IV At the time of evaluation patient states to be not having any additional symptoms 04/17/17 No cp, dizziness, fatigue reported abdomen is distended No further episodes of nausea, vomiting no further bowel movements with blood reported. Objective - Vital Signs Vital signs: Vital Signs Temp 97.9 F 04/17/17 16:00 Pulse 70 04/17/17 16:00 Resp 24 04/17/17 16:00 BP 112/67 04/17/17 16:00 Pulse Ox 100 04/17/17 12:00 Intake & Output 04/16/17 04/17/17 04/17/17 18:59 06:59 18:59 Intake Total 4250.0 1862.113 901 Output Total 1026 1850 500 Balance 3224.0 12.113 401 Weight 98.2 kg 98.2 kg Intake: IV 1350 1200 800 Sodium Chloride 0.9% 1, 1200 1200 800 000 ml @ 100 mls/hr IV . Q10H [facility] Rx#:[id number] Intake, IV Titration 378.0 352.113 101 Amount Octreotide 200 mcg In 303 339.613 101 Sodium Chloride 0.9% 100 ml @ 50 MCG/HR 25.25 mls/ hr IV .Q4H [facility] Rx#: [id number] Piperacillin-Tazobactam 3 75.0 12.5 .375 gm In Dextrose/Water 1 50ml.bag @ 12.5 mls/hr IVPB Q8HR [facility] Rx#: [id number] Oral 50 Blood Product 2472 310 Ffp 24 Cp2d Unit 216 [id number] Ffp 24 Cp2d Unit 228 [id number] Ffp 24 Cp2d Unit 177 [id number] Ffp 24 Cpd Unit 305 [id number] Rc As-1 Unit 310 [id number] Rc Pheresis As-3 Unit 0 310 [id number] Output: Urine 1025 1850 500 Urine/Stool Mix 1 Other: Voiding Method Urinal Urinal Urinal # Bowel Movements 1 1 - Constitutional General appearance: Present: no acute distress - EENT Eyes: Present: EOMI - Neck Neck: Present: normal ROM - Respiratory Respiratory: bilateral: diminished, negative: rales, rhonchi - Cardiovascular Rhythm: regular Heart sounds: normal: S1, S2 Abnormal Heart Sounds: Absent: systolic murmur - Peripheral edema leg Peripheral Edema: bilateral: 2+, Pitting - Gastrointestinal General gastrointestinal: Present: distended (dull to percussion above the umbilicus) - Neurologic Neurologic: Present: CNII-XII intact. Absent: focal deficits - Psychiatric Psychiatric: Present: A&O x's 3 - Labs CBC & Chem 7: 04/17/17 17:46 04/17/17 05:31 Labs: Abnormal Lab Results - Last 24 Hours (Table) 04/15/17 04/16/17 04/17/17 Range/Units 23:35 22:36 05:31 RBC 2.59 L (4.30-5.90) m/uL Hgb 7.6 L (13.0-17.5) gm/dL Hct 23.7 L (39.0-53.0) % RDW 18.6 H (11.5-15.5) % Monocytes # (0-1.0) k/uL PT (9.0-12.0) sec Sodium 134 L (137-145) mmol/L Chloride 110 H (98-107) mmol/L Carbon Dioxide 19 L (22-30) mmol/L BUN 28 H (9-20) mg/dL POC Glucose (mg/dL) (75-99) mg/dL Calcium 7.4 L (8.4-10.2) mg/dL Total Bilirubin 2.6 H (0.2-1.3) mg/dL Unconjugated Bilirubin 1.3 H (0.0-1.1) mg/dL Delta Bilirubin 1.2 H (0.0-0.2) mg/dL AST 94 H (17-59) U/L Total Protein 5.4 L (6.3-8.2) g/dL Albumin 2.1 L (3.5-5.0) g/dL Lipase 394 H (23-300) U/L Crossmatch See Detail 04/17/17 04/17/17 04/17/17 Range/Units 05:31 05:31 07:29 RBC 2.57 L (4.30-5.90) m/uL Hgb 7.7 L (13.0-17.5) gm/dL Hct 23.4 L (39.0-53.0) % RDW 18.9 H (11.5-15.5) % Monocytes # (0-1.0) k/uL PT 15.4 H (9.0-12.0) sec Sodium (137-145) mmol/L Chloride (98-107) mmol/L Carbon Dioxide (22-30) mmol/L BUN (9-20) mg/dL POC Glucose (mg/dL) 100 H (75-99) mg/dL Calcium (8.4-10.2) mg/dL Total Bilirubin (0.2-1.3) mg/dL Unconjugated Bilirubin (0.0-1.1) mg/dL Delta Bilirubin (0.0-0.2) mg/dL AST (17-59) U/L Total Protein (6.3-8.2) g/dL Albumin (3.5-5.0) g/dL Lipase (23-300) U/L Crossmatch 04/17/17 04/17/17 04/17/17 Range/Units 11:28 12:14 17:46 RBC 2.65 L 2.63 L (4.30-5.90) m/uL Hgb 8.1 L 7.8 L (13.0-17.5) gm/dL Hct 24.2 L 24.6 L (39.0-53.0) % RDW 18.9 H 18.8 H (11.5-15.5) % Monocytes # 1.1 H (0-1.0) k/uL PT (9.0-12.0) sec Sodium (137-145) mmol/L Chloride (98-107) mmol/L Carbon Dioxide (22-30) mmol/L BUN (9-20) mg/dL POC Glucose (mg/dL) 114 H (75-99) mg/dL Calcium (8.4-10.2) mg/dL Total Bilirubin (0.2-1.3) mg/dL Unconjugated Bilirubin (0.0-1.1) mg/dL Delta Bilirubin (0.0-0.2) mg/dL AST (17-59) U/L Total Protein (6.3-8.2) g/dL Albumin (3.5-5.0) g/dL Lipase (23-300) U/L Crossmatch Microbiology - Last 24 Hours (Table) 04/16/17 04:50 Blood Culture - Preliminary Blood No Growth after 24 hours Assessment and Plan Plan: #1 acute upper GI blood loss likely variceal in nature #2 non-anion gap metabolic acidosis #3 hyponatremia likely hypovolemic #4 hyperkalemia #5 decompensated liver cirrhosis #6 lactic acidosis #7 hypoalbuminemia #8 hypotension due to blood loss Plan hb stable restart diuretics continue midodrine strict I/O one dose of lasix 40mg iv transfer out of ICU will discuss transfer edna, as pt has had multiple bleeding episodes would benefit from TIPS
[2017-04-17] MEDS ORDERED: FUROSEMIDE 10 MG/ML 4 ML VIAL IV STA (18:30)
[2017-04-17] MEDS ORDERED: FUROSEMIDE 20 MG TAB PO STA (19:37)
[2017-04-17 20:05] LABS: Glucose,Whole Blood 162 mg/dL (75-99)
[2017-04-17] MEDS: QUEtiapine 100 MG TAB PO SCH (20:27)
[2017-04-17] MEDS: MIRTAZAPINE 45 MG TABLET PO SCH (20:27)
[2017-04-17] MEDS: FERROUS SULFATE 325 MG TAB PO SCH (20:27)
[2017-04-17] MEDS: RIFAXIMIN 550 MG TABLET PO SCH (20:27)
[2017-04-18] MEDS: PIPERACILLIN-TAZOBACTAM 3.375 GM in DEXTROSE/WATER 1 50ML.BAG IVPB SCH ×3 (00:05→16:13)
[2017-04-18] MEDS: SODIUM CHLORIDE 0.9% 1,000 ML IV SCH ×3 (00:07→17:58)
[2017-04-18 05:17] LABS: Anion Gap 4 mmol/L; Blood Urea Nitrogen 17 mg/dL (9-20); Calcium 7.5 mg/dL (8.4-10.2); Carbon Dioxide 20 mmol/L (22-30); Chloride 112 mmol/L (98-107); Glucose 84 mg/dL (74-99); Non-African American GFR(MDRD) >60 (>60 ml/min/1.73 sqM); Potassium 3.8 mmol/L (3.5-5.1); Sodium 136 mmol/L (137-145)
[2017-04-18] MEDS ORDERED: Potassium Replacement Protocol 1 EACH MISC MISCELLANE PRN (06:03)
[2017-04-18 06:11] LABS: Anisocytosis Slight; Basophils % (A) 1 %; CH 29.4; CHCM 31.6; Eosinophils # (A) 0.2 k/uL (0-0.7); Eosinophils % (A) 3 %; HCT 25.5 % (39.0-53.0); HDW 4.03; Hypochromasia Moderate; Luc # (Auto) 0.15; Luc % (Auto) 3; Lymphocytes # (A) 1.2 k/uL (1.0-4.8); Lymphocytes % (A) 21 %; MCH 29.5 pg (25.0-35.0); MCHC 31.4 g/dL (31.0-37.0); Macrocytosis Slight; Mean Platelet Volume 7.9; Monocytes # (A) 0.6 k/uL (0-1.0); Monocytes % (A) 12 %; Neutrophils # (A) 3.3 k/uL (1.3-7.7); Neutrophils % (A) 61 %; Poikilocytosis Moderate; RBC 2.71 m/uL (4.30-5.90); RDW 18.7 % (11.5-15.5); WBC 5.5 k/uL (3.8-10.6); WBC (Perox) 5.33
[2017-04-18] MEDS ORDERED: POTASSIUM CHLORIDE ER 20 MEQ TAB.ER PO SCH (06:59)
[2017-04-18] MEDS: ALBUTEROL NEBULIZED 2.5 MG/3 ML INHALATION PRN (07:50)
[2017-04-18 07:51] LABS: Glucose,Whole Blood 91 mg/dL (75-99)
[2017-04-18 08:38] LABS: Manual Review Performed
[2017-04-18] MEDS ORDERED: PHYTONADIONE ORAL 5 MG/5 ML ORAL.SYRG PO SCH (09:00)
[2017-04-18] MEDS: INSULIN LISPRO (humaLOG) 300 UNIT/3 ML VIAL SQ SCH ×3 (09:03→17:22)
[2017-04-18] MEDS: MIDODRINE 5 MG TAB PO SCH ×3 (09:04→17:40)
[2017-04-18] MEDS: PANTOPRAZOLE 40 MG/10 ML VIAL IVP SCH ×2 (09:05→22:11)
[2017-04-18] MEDS: RIFAXIMIN 550 MG TABLET PO SCH (09:08)
[2017-04-18] MEDS: FERROUS SULFATE 325 MG TAB PO SCH ×2 (09:10→22:11)
[2017-04-18] MEDS: FUROSEMIDE 20 MG TAB PO SCH (09:10)
[2017-04-18] MEDS: NICOTINE 14MG/24HR PATCH TRANSDERM SCH (09:10)
[2017-04-18] MEDS: LACTULOSE 20 GM/30 ML CUP PO SCH ×4 (09:13→22:13)
[2017-04-18] MEDS: MAGNESIUM OXIDE 400 MG TAB PO SCH ×2 (09:13→16:13)
[2017-04-18] MEDS: SPIRONOLACTONE 25 MG TAB PO SCH ×2 (09:14→22:13)
--- NOTE | 2017-04-18 09:21 | XR ---
EXAMINATION TYPE: XR chest 1V DATE OF EXAM: 04/18/2017 6:53 AM COMPARISON: NONE INDICATION: Short of breath, previous abnormal chest TECHNIQUE: Single frontal view of the chest is obtained. FINDINGS: The heart size is normal. The pulmonary vasculature is normal. The lungs are clear. Previous right basilar atelectasis has resolved. IMPRESSION: 1. No acute pulmonary process.
--- NOTE | 2017-04-18 10:52 | P.PN ---
Subjective This is a 56-year-old male patient with known history of alcoholic liver cirrhosis in addition multiple to multiple other medical problems and comorbidities. The patient was drinking alcohol up to recently and apparently quit drinking approximately a month ago. He was in the hospital last week and he was seen by GI services regarding GI bleeding. He was admitted to the hospital for the same. Note that during his hospitalization, the patient's hematoma was at 5.5 and he got transfused with packed RBC a total of 3 units and he was evaluated by gastroenterology and underwent a EGD on 04/08/2017 and he was found to have gastric varices with a grade 1-2 distal esophageal varices without stigmata of any recent bleeding. He also had portal hypertensive gastropathy. He was discharged home to be admitted with the bowels of melanotic bowel movements yesterday and another episode this morning. On admission his hemoglobin was down to 5.1. The patient has already received 2 units of packed RBC. Repeat hemoglobin is up to 6.8 and subsequently dropped down to 5.9 this morning. Based on this, the patient will be given another unit of packed RBC. The patient is on octreotide. The patient will be undergoing another EGD by gastroenterology. Note that he is seated total of 4 units of IV fluids and currently he is on a maintenance IV fluids. He is a bit lethargic. A bit sleepy. Ammonia level is at 77. Abdomen is distended and there is positive ascites. No fever. No chills. No abdominal pain. No agitation. The patient's chest x-ray is free of any acute pulmonary infiltrates or pneumonias. I do not see any evidence of any pneumonia. The patient is seen again today in 04/17/2017 in follow-up in the intensive care unit. He is awake and alert in no acute distress. He did undergo EGD yesterday which revealed gastric varices with stigmata of prior bleeding and grade 1-2 distal esophageal varices with no stigmata of recent bleed. There was portal hypertensive gastropathy. No active bleeding throughout the exam. He has had no active bleeding throughout the night. Current hemoglobin 7.7. He is status post 4 units of packed red blood cell infusions and 4 units of fresh frozen plasma. He remains on Octreotide at 50 g per hour. He remains on Protonix IV 40 mg twice a day. He has some vague abdominal discomfort. Otherwise no complaints. He currently has no pulmonary complaints. No shortness of breath, cough or congestion. He is maintaining good O2 saturations in the 90s on room air. He is covered with Zosyn. On 04/18/2017 the patient is resting comfortably in bed. No evidence of bleeding. The acute side drip has been discontinued. The patient is on IV Protonix. Hemodynamically stable and the patient is not hypotensive at this point. The patient is producing some urine output around 50 mL an hourly basis. He has a massive ascites and he may benefit from paracentesis at a later stage. He wants his diet to be advanced which I think it's possible. No signs of encephalopathy. Most recent hemoglobin is at 8. IV fluids are running at 100 mL an hour of 0.9 saline and this needs to be kept down. His creatinine today is at 0.9. BNP is at 17. The bicarb level is at 20. Objective - Vital Signs Vital signs: Vital Signs Temp 98.2 F 04/18/17 04:00 Pulse 78 04/18/17 09:00 Resp 26 H 04/18/17 09:00 BP 133/64 04/18/17 09:00 Pulse Ox 98 04/18/17 09:00 Intake & Output 04/17/17 04/18/17 04/18/17 18:59 06:59 18:59 Intake Total 1351 1600 350 Output Total 650 875 250 Balance 701 725 100 Weight 98.2 kg 98.6 kg Intake: IV 1200 1200 300 Sodium Chloride 0.9% 1, 1200 1200 300 000 ml @ 100 mls/hr IV . Q10H [facility] Rx#:[id number] Intake, IV Titration 151 50 Amount Octreotide 200 mcg In 101 Sodium Chloride 0.9% 100 ml @ 50 MCG/HR 25.25 mls/ hr IV .Q4H [facility] Rx#: [id number] Piperacillin-Tazobactam 3 50 50 .375 gm In Dextrose/Water 1 50ml.bag @ 12.5 mls/hr IVPB Q8HR [facility] Rx#: [id number] Oral 400 Output: Urine 650 875 250 Other: Voiding Method Urinal Urinal # Voids 1 # Bowel Movements 1 1 1 - Exam Not in acute acute distress, resting comfortably in bed. Pain. No shortness of breath.Head exam was generally normal. There was no scleral icterus or corneal arcus. Mucous membranes were moist.Neck was supple and without jugular venous distension, thyromegaly, or carotid bruits. Carotids were easily palpable bilaterally. There was no adenopathy. Patient has conjunctival pallor. No icterus. Lung sounds are diminished in the lung bases bilaterally. Otherwise breath sounds are equal and symmetrical. My normal heart abdomen is distended and there is positive ascites. There is no direct tenderness, rebound tenderness or guarding. Extremities show trace edema and there is no cyanosis or clubbing. Neurologically, awake and alert and moving all flex images without any limitation. - Labs CBC & Chem 7: 04/18/17 04:04 04/18/17 04:04 Labs: Abnormal Lab Results - Last 24 Hours (Table) 04/15/17 04/17/17 04/17/17 Range/Units 18:50 11:28 12:14 RBC 2.65 L (4.30-5.90) m/uL Hgb 8.1 L (13.0-17.5) gm/dL Hct 24.2 L (39.0-53.0) % RDW 18.9 H (11.5-15.5) % Plt Count (150-450) k/uL Monocytes # 1.1 H (0-1.0) k/uL Sodium (137-145) mmol/L Chloride (98-107) mmol/L Carbon Dioxide (22-30) mmol/L POC Glucose (mg/dL) 114 H (75-99) mg/dL Calcium (8.4-10.2) mg/dL Crossmatch See Detail 04/17/17 04/17/17 04/18/17 Range/Units 17:46 20:03 04:04 RBC 2.63 L (4.30-5.90) m/uL Hgb 7.8 L (13.0-17.5) gm/dL Hct 24.6 L (39.0-53.0) % RDW 18.8 H (11.5-15.5) % Plt Count (150-450) k/uL Monocytes # (0-1.0) k/uL Sodium 136 L (137-145) mmol/L Chloride 112 H (98-107) mmol/L Carbon Dioxide 20 L (22-30) mmol/L POC Glucose (mg/dL) 162 H (75-99) mg/dL Calcium 7.5 L (8.4-10.2) mg/dL Crossmatch 04/18/17 Range/Units 04:04 RBC 2.71 L (4.30-5.90) m/uL Hgb 8.0 L (13.0-17.5) gm/dL Hct 25.5 L (39.0-53.0) % RDW 18.7 H (11.5-15.5) % Plt Count 129 L (150-450) k/uL Monocytes # (0-1.0) k/uL Sodium (137-145) mmol/L Chloride (98-107) mmol/L Carbon Dioxide (22-30) mmol/L POC Glucose (mg/dL) (75-99) mg/dL Calcium (8.4-10.2) mg/dL Crossmatch Microbiology - Last 24 Hours (Table) 04/16/17 04:50 Blood Culture - Preliminary Blood No Growth after 48 hours Assessment and Plan Plan: Assessment 1 GI bleeding in the setting of liver cirrhosis. This is likely an upper GI bleed as the patient is known to have portal hypertension, esophageal varices and portal hypertensive gastropathy. Last EGD was done on 04/08/2017 and the patient did not have any variceal ligation and the patient also had grade 1 distal esophageal varices. There was no stigmata of any acute bleeding. On 04/18/2017 the patient is being seen in follow-up in no signs of any recurrent bleeding. His last endoscopy was done on 04/16 and there was no stigmata of acute bleeding. The hemoglobin stable at 8.0. 2 hypotension secondary to GI bleed, improved 3 profound anemia secondary to GI bleed, status post asked fusion packed RBCs 4 alcoholic liver cirrhosis 5 liver cirrhosis with stigmata of chronic liver failure including coagulopathy and portal hypertension and hepatic encephalopathy 6 ascites, massive 7 coagulopathy with an INR of 1.6 secondary to liver cirrhosis 8 hypertension 9 diabetes mellitus 10 COPD 11 CVA 12 bipolar disorder /depression 13 hyponatremia secondary to above, improved 14 non-anion gap metabolic acidosis, resolved Plan Patient is stable. The patient is awaiting to be transferred out of the intensive care unit. Advance diet. Consider large volume paracentesis in a.m. regarding the massive abdominal ascites.
[2017-04-18] MEDS: PROPRANOLOL 10 MG TAB PO SCH ×2 (11:50→16:13)
[2017-04-18 12:57] LABS: Glucose,Whole Blood 95 mg/dL (75-99)
[2017-04-18] MEDS: THIAMINE 100 MG TAB PO SCH (12:59)
[2017-04-18] MEDS: FOLIC ACID 1 MG TAB PO SCH (12:59)
[2017-04-18] MEDS: FUROSEMIDE 10 MG/ML 4 ML VIAL IV SCH ×2 (13:31→22:10)
[2017-04-18] MEDS: traMADol 50 MG TAB PO PRN ×2 (14:02→22:19)
[2017-04-18 16:50] LABS: Glucose,Whole Blood 88 mg/dL (75-99)
--- NOTE | 2017-04-18 17:43 | P.PN ---
Subjective 56-year-old gentleman with history of alcoholic cirrhosis who was admitted to the hospital multiple times in the last 5 weeks with decompensation. Patient was apparently seen in the hospital over week ago with the GI bleed was noted to have gastric and esophageal varices. No intervention was done at that time Patient comes in to the hospital with complains of and intermittent dizziness and chest pain. Patient noted to have one episode of hematemesis and multiple episodes of dark stools or the last 24 hours. In the emergency room patient was noted to have a hemoglobin around the 5 g per DL ophelia patient was given 3 units of PRBC and triaged to the intensive care unit as an active GI bleed Patient was also given 3 L of crystalloids. Patient is started on Protonix 40 mg IV twice a day and octreotide 50 mg IV At the time of evaluation patient states to be not having any additional symptoms 04/17/17 No cp, dizziness, fatigue reported abdomen is distended No further episodes of nausea, vomiting no further bowel movements with blood reported. 04/18 states to have some alysa No cp, fevers, chills, headaches, blurry vision, bleeding episodes reported Objective - Vital Signs Vital signs: Vital Signs Temp 97.1 F L 04/18/17 16:00 Pulse 61 04/18/17 16:00 Resp 20 04/18/17 16:00 BP 126/68 04/18/17 16:00 Pulse Ox 100 04/18/17 16:00 Intake & Output 04/17/17 04/18/17 04/18/17 18:59 06:59 18:59 Intake Total 1351 1600 490 Output Total 917 106 7148 Balance 701 725 -1660 Weight 98.2 kg 98.6 kg 98.6 kg Intake: IV 1200 1200 440 Sodium Chloride 0.9% 1, 1200 1200 440 000 ml @ 100 mls/hr IV . Q10H [facility] Rx#:[id number] Intake, IV Titration 151 50 Amount Octreotide 200 mcg In 101 Sodium Chloride 0.9% 100 ml @ 50 MCG/HR 25.25 mls/ hr IV .Q4H [facility] Rx#: [id number] Piperacillin-Tazobactam 3 50 50 .375 gm In Dextrose/Water 1 50ml.bag @ 12.5 mls/hr IVPB Q8HR [facility] Rx#: [id number] Oral 400 Output: Urine 714 401 7576 Stool 1000 Other: Voiding Method Urinal Urinal Urinal # Voids 3 # Bowel Movements 1 1 3 - Constitutional General appearance: Present: no acute distress - EENT Eyes: Present: EOMI, PERRLA - Neck Neck: Present: normal ROM - Respiratory Respiratory: bilateral: diminished, negative: rales, rhonchi - Cardiovascular Rhythm: regular Heart sounds: normal: S1, S2 Abnormal Heart Sounds: Present: systolic murmur - Gastrointestinal General gastrointestinal: Present: distended (asictes noted, not tense, appropriately tender to palpation), normal bowel sounds - Integumentary Integumentary: Present: normal - Neurologic Neurologic: Present: CNII-XII intact. Absent: focal deficits - Psychiatric Psychiatric: Present: A&O x's 3, appropriate affect - Labs CBC & Chem 7: 04/18/17 04:04 04/18/17 04:04 Labs: Abnormal Lab Results - Last 24 Hours (Table) 04/15/17 04/17/17 04/17/17 Range/Units 18:50 17:46 20:03 RBC 2.63 L (4.30-5.90) m/uL Hgb 7.8 L (13.0-17.5) gm/dL Hct 24.6 L (39.0-53.0) % RDW 18.8 H (11.5-15.5) % Plt Count (150-450) k/uL Sodium (137-145) mmol/L Chloride (98-107) mmol/L Carbon Dioxide (22-30) mmol/L POC Glucose (mg/dL) 162 H (75-99) mg/dL Calcium (8.4-10.2) mg/dL Crossmatch See Detail 04/18/17 04/18/17 Range/Units 04:04 04:04 RBC 2.71 L (4.30-5.90) m/uL Hgb 8.0 L (13.0-17.5) gm/dL Hct 25.5 L (39.0-53.0) % RDW 18.7 H (11.5-15.5) % Plt Count 129 L (150-450) k/uL Sodium 136 L (137-145) mmol/L Chloride 112 H (98-107) mmol/L Carbon Dioxide 20 L (22-30) mmol/L POC Glucose (mg/dL) (75-99) mg/dL Calcium 7.5 L (8.4-10.2) mg/dL Crossmatch Microbiology - Last 24 Hours (Table) 04/16/17 04:50 Blood Culture - Preliminary Blood No Growth after 48 hours Assessment and Plan Plan: #1 acute upper GI blood loss likely variceal in nature #2 non-anion gap metabolic acidosis #3 hyponatremia likely hypovolemic #4 hyperkalemia #5 decompensated liver cirrhosis #6 lactic acidosis #7 hypoalbuminemia #8 hypotension due to blood loss Plan hb stable restart diuretics continue midodrine strict I/O lasix 40mg iv bid repeat labs b gustavo PPI will discuss transfer edna, as pt has had multiple bleeding episodes would benefit from TIPS
[2017-04-18] MEDS: MIRTAZAPINE 45 MG TABLET PO SCH (22:11)
[2017-04-19] MEDS: RIFAXIMIN 550 MG TABLET PO SCH ×2 (00:16→09:17)
[2017-04-19] MEDS: QUEtiapine 100 MG TAB PO SCH (00:16)
[2017-04-19] MEDS: INSULIN LISPRO (humaLOG) 300 UNIT/3 ML VIAL SQ SCH ×3 (00:21→14:04)
[2017-04-19] MEDS: MAGNESIUM OXIDE 400 MG TAB PO SCH ×2 (00:21→09:17)
[2017-04-19] MEDS: PROPRANOLOL 10 MG TAB PO SCH ×2 (00:22→09:16)
[2017-04-19 06:37] LABS: Anisocytosis Slight; CH 29.5; HCT 24.3 % (39.0-53.0); HDW 3.87; HGB 7.5 gm/dL (13.0-17.5); Hypochromasia Marked; MCH 29.5 pg (25.0-35.0); MCHC 30.7 g/dL (31.0-37.0); MCV 96.2 fL (80.0-100.0); Macrocytosis Slight; Mean Platelet Volume 7.7; Poikilocytosis Slight; RBC 2.53 m/uL (4.30-5.90); RDW 19.1 % (11.5-15.5); WBC (Perox) 4.01
[2017-04-19 06:53] LABS: Glucose,Whole Blood 85 mg/dL (75-99)
[2017-04-19] MEDS: SODIUM CHLORIDE 0.9% 1,000 ML IV SCH (07:09)
[2017-04-19 07:19] LABS: ALT 48 U/L (21-72); AST 66 U/L (17-59); Alkaline Phosphatase 96 U/L (38-126); Anion Gap 4 mmol/L; Blood Urea Nitrogen 12 mg/dL (9-20); Calcium 7.5 mg/dL (8.4-10.2); Carbon Dioxide 20 mmol/L (22-30); Chloride 111 mmol/L (98-107); Glucose 73 mg/dL (74-99); Magnesium 1.9 mg/dL (1.6-2.3); Non-African American GFR(MDRD) >60 (>60 ml/min/1.73 sqM); Potassium 3.9 mmol/L (3.5-5.1); Sodium 135 mmol/L (137-145); Total Bilirubin 1.9 mg/dL (0.2-1.3); Total Protein 5.3 g/dL (6.3-8.2)
[2017-04-19 07:47] LABS: Add Differential Manual Differential
[2017-04-19 07:52] LABS: Manual Review Performed; Myelocytes % 0.5 %; Nucleated Red Blood Cells 0 /100 WBC (0-0); Total Cells Counted 200
[2017-04-19] MEDS: SPIRONOLACTONE 25 MG TAB PO SCH (09:16)
[2017-04-19] MEDS: FERROUS SULFATE 325 MG TAB PO SCH (09:16)
[2017-04-19] MEDS: PIPERACILLIN-TAZOBACTAM 3.375 GM in DEXTROSE/WATER 1 50ML.BAG IVPB SCH ×2 (09:16)
[2017-04-19] MEDS: NICOTINE 14MG/24HR PATCH TRANSDERM SCH (09:17)
[2017-04-19] MEDS: traMADol 50 MG TAB PO PRN (09:17)
[2017-04-19] MEDS: PANTOPRAZOLE 40 MG/10 ML VIAL IVP SCH (09:18)
[2017-04-19] MEDS: LACTULOSE 20 GM/30 ML CUP PO SCH ×2 (09:18→14:02)
[2017-04-19] MEDS: FUROSEMIDE 10 MG/ML 4 ML VIAL IV SCH (09:18)
--- NOTE | 2017-04-19 11:02 | P.PN ---
Subjective Principal diagnosis: Acute GI bleeding in the setting of liver cirrhosis and portal hypertension. This is a 56-year-old male patient with known history of alcoholic liver cirrhosis in addition multiple to multiple other medical problems and comorbidities. The patient was drinking alcohol up to recently and apparently quit drinking approximately a month ago. He was in the hospital last week and he was seen by GI services regarding GI bleeding. He was admitted to the hospital for the same. Note that during his hospitalization, the patient's hematoma was at 5.5 and he got transfused with packed RBC a total of 3 units and he was evaluated by gastroenterology and underwent a EGD on 04/08/2017 and he was found to have gastric varices with a grade 1-2 distal esophageal varices without stigmata of any recent bleeding. He also had portal hypertensive gastropathy. He was discharged home to be admitted with the bowels of melanotic bowel movements yesterday and another episode this morning. On admission his hemoglobin was down to 5.1. The patient has already received 2 units of packed RBC. Repeat hemoglobin is up to 6.8 and subsequently dropped down to 5.9 this morning. Based on this, the patient will be given another unit of packed RBC. The patient is on octreotide. The patient will be undergoing another EGD by gastroenterology. Note that he is seated total of 4 units of IV fluids and currently he is on a maintenance IV fluids. He is a bit lethargic. A bit sleepy. Ammonia level is at 77. Abdomen is distended and there is positive ascites. No fever. No chills. No abdominal pain. No agitation. The patient's chest x-ray is free of any acute pulmonary infiltrates or pneumonias. I do not see any evidence of any pneumonia. The patient is seen again today in 04/17/2017 in follow-up in the intensive care unit. He is awake and alert in no acute distress. He did undergo EGD yesterday which revealed gastric varices with stigmata of prior bleeding and grade 1-2 distal esophageal varices with no stigmata of recent bleed. There was portal hypertensive gastropathy. No active bleeding throughout the exam. He has had no active bleeding throughout the night. Current hemoglobin 7.7. He is status post 4 units of packed red blood cell infusions and 4 units of fresh frozen plasma. He remains on Octreotide at 50 g per hour. He remains on Protonix IV 40 mg twice a day. He has some vague abdominal discomfort. Otherwise no complaints. He currently has no pulmonary complaints. No shortness of breath, cough or congestion. He is maintaining good O2 saturations in the 90s on room air. He is covered with Zosyn. On 04/18/2017 the patient is resting comfortably in bed. No evidence of bleeding. The acute side drip has been discontinued. The patient is on IV Protonix. Hemodynamically stable and the patient is not hypotensive at this point. The patient is producing some urine output around 50 mL an hourly basis. He has a massive ascites and he may benefit from paracentesis at a later stage. He wants his diet to be advanced which I think it's possible. No signs of encephalopathy. Most recent hemoglobin is at 8. IV fluids are running at 100 mL an hour of 0.9 saline and this needs to be kept down. His creatinine today is at 0.9. BNP is at 17. The bicarb level is at 20. On 04/19/2017, patient seems to be resting again in bed, comfortable, in no distress, no evidence of any active bleeding. Patient remains on Protonix, hemodynamically stable, good urine output noted, however the main issue remains is his massive ascites. Patient may benefit from ultrasound guided paracentesis by interventional radiology. No signs of encephalopathy. Hemoglobin is 7.5 today, normal metabolic profile was noted. Total bilirubin is 1.9. Liver enzymes were noted. Albumin is 1.9. Objective - Vital Signs Vital signs: Vital Signs Temp 96.6 F L 04/19/17 08:00 Pulse 98 04/19/17 08:00 Resp 20 04/19/17 08:00 BP 115/64 04/19/17 08:00 Pulse Ox 98 04/19/17 08:59 Intake & Output 04/18/17 04/19/17 04/19/17 18:59 06:59 18:59 Intake Total 1090 400 Output Total 2950 3625 850 Balance -8898 -9924 -679 Weight 98.6 kg 100.5 kg Intake: IV 440 Sodium Chloride 0.9% 1, 440 000 ml @ 100 mls/hr IV . Q10H [facility] Rx#:[id number] Intake, IV Titration 50 Amount Piperacillin-Tazobactam 3 50 .375 gm In Dextrose/Water 1 50ml.bag @ 12.5 mls/hr IVPB Q8HR [facility] Rx#: [id number] Oral 600 400 Output: Urine 1600 1450 600 Stool 1350 1625 250 Other: Voiding Method Urinal Urinal # Voids 1 1 1 # Bowel Movements 1 1 1 - Exam Physical Exam: Revealed a 56-year-old white male in no distress. HEENT:[Neck is supple.] [No neck masses.] [No thyromegaly.] [No JVD.] Chest: [Diminished breath sounds at the bases no crackles or rhonchi or wheezes. ] Cardiac Exam: [Normal S1 and S2, no S3 gallop, no murmur.] Abdomen: [Distended, positive ascites, no guarding, no rebound, positive bowel sounds..] Extremities: [No clubbing, no edema, no cyanosis.] Neurological Exam: [No focal neurologic deficit.] - Labs CBC & Chem 7: 04/19/17 06:08 04/19/17 06:08 Labs: Abnormal Lab Results - Last 24 Hours (Table) 04/15/17 04/19/17 04/19/17 Range/Units 18:50 06:08 06:08 RBC 2.53 L (4.30-5.90) m/uL Hgb 7.5 L (13.0-17.5) gm/dL Hct 24.3 L (39.0-53.0) % MCHC 30.7 L (31.0-37.0) g/dL RDW 19.1 H (11.5-15.5) % Plt Count 131 L (150-450) k/uL Lymphocytes # (Manual) 0.9 L (1.0-4.8) k/uL Sodium 135 L (137-145) mmol/L Chloride 111 H (98-107) mmol/L Carbon Dioxide 20 L (22-30) mmol/L Glucose 73 L (74-99) mg/dL Calcium 7.5 L (8.4-10.2) mg/dL Total Bilirubin 1.9 H (0.2-1.3) mg/dL AST 66 H (17-59) U/L Total Protein 5.3 L (6.3-8.2) g/dL Albumin 1.9 L (3.5-5.0) g/dL Crossmatch See Detail Microbiology - Last 24 Hours (Table) 04/16/17 04:50 Blood Culture - Preliminary Blood No Growth after 72 hours Assessment and Plan Plan: 1 GI bleeding in the setting of liver cirrhosis. This is likely an upper GI bleed as the patient is known to have portal hypertension, esophageal varices and portal hypertensive gastropathy. Last EGD was done on 04/08/2017 and the patient did not have any variceal ligation and the patient also had grade 1 distal esophageal varices. There was no stigmata of any acute bleeding. On 04/18/2017 the patient is being seen in follow-up in no signs of any recurrent bleeding. His last endoscopy was done on 04/16 and there was no stigmata of acute bleeding. The hemoglobin stable at 8.0. On 04/19/2017, patient is about the same, relatively asymptomatic, however I think it is probably time to consider ultrasound guided paracentesis by interventional radiology for his massive ascites. 2 hypotension secondary to GI bleed, improved 3 profound anemia secondary to GI bleed, status post asked fusion packed RBCs 4 alcoholic liver cirrhosis 5 liver cirrhosis with stigmata of chronic liver failure including coagulopathy and portal hypertension and hepatic encephalopathy 6 ascites, massive. I believe the patient may benefit from paracentesis. 7 coagulopathy with an INR of 1.6 secondary to liver cirrhosis 8 hypertension 9 diabetes mellitus 10 COPD 11 CVA 12 bipolar disorder /depression 13 hyponatremia secondary to above, improved 14 non-anion gap metabolic acidosis, resolved Recommendation: Continue present supportive care measures, consider large volume paracentesis by interventional radiology. We will continue to follow. Time with Patient: Less than 30
[2017-04-19 12:07] LABS: Glucose,Whole Blood 95 mg/dL (75-99)
[2017-04-19] MEDS: FOLIC ACID 1 MG TAB PO SCH (14:03)
[2017-04-19] MEDS: THIAMINE 100 MG TAB PO SCH (14:03)
[2017-04-19] MEDS: MIDODRINE 5 MG TAB PO SCH (14:03)
--- NOTE | 2017-04-19 14:11 | P.DS ---
Providers Date of admission: 04/15/17 20:25 Attending physician: Heavenly Cardenas Consults: 04/15/17 20:25 Consult Physician Routine Consulting Provider: Ambreen Arzola Consult Reason/Comments: GI bleed Do you want consulting provider notified?: Yes, Notify in am 04/15/17 22:20 Consult Physician Routine Consulting Provider: Analy Moore Consult Reason/Comments: acute blood loss anemia, gi bleed Do you want consulting provider notified?: Already Contacted Primary care physician: Lenora [facility] Course: 6-year-old gentleman with history of alcoholic cirrhosis who was admitted to the hospital multiple times in the last 5 weeks with decompensation. Patient was apparently seen in the hospital over week ago with the GI bleed was noted to have gastric and esophageal varices. No intervention was done at that time Patient comes in to the hospital with complains of and intermittent dizziness and chest pain. Patient noted to have one episode of hematemesis and multiple episodes of dark stools or the last 24 hours. In the emergency room patient was noted to have a hemoglobin around the 5 g per DL ophelia patient was given 3 units of PRBC and triaged to the intensive care unit as an active GI bleed Patient was also given 3 L of crystalloids. Patient is started on Protonix 40 mg IV twice a day and octreotide 50 mg IV At the time of evaluation patient states to be not having any additional symptoms 04/17/17 No cp, dizziness, fatigue reported abdomen is distended No further episodes of nausea, vomiting no further bowel movements with blood reported. 04/18 states to have some alysa No cp, fevers, chills, headaches, blurry vision, bleeding episodes reported - Constitutional General appearance: Present: no acute distress - EENT Eyes: Present: EOMI, PERRLA - Neck Neck: Present: normal ROM - Respiratory Respiratory: bilateral: diminished, negative: rales, rhonchi - Cardiovascular Rhythm: regular Heart sounds: normal: S1, S2 Abnormal Heart Sounds: Present: systolic murmur - Gastrointestinal General gastrointestinal: Present: distended (asictes noted, not tense, appropriately tender to palpation), normal bowel sounds - Integumentary Integumentary: Present: normal - Neurologic Neurologic: Present: CNII-XII intact. Absent: focal deficits - Psychiatric Psychiatric: Present: A&O x's 3, appropriate affect Assessment and Plan Plan: #1 acute upper GI blood loss likely variceal in nature #2 non-anion gap metabolic acidosis #3 hyponatremia likely hypovolemic #4 hyperkalemia #5 decompensated liver cirrhosis #6 lactic acidosis #7 hypoalbuminemia #8 hypotension due to blood loss 9. RLL pneumonia HCAP on zosyn day 5 Plan hb stable continue midodrine strict I/O lasix 40mg iv bid repeat labs b gustavo PPI as pt has had multiple bleeding episodes. was noted to have gastric varices, no intervention was done. During 2 EGD's no active bleeding was noted. s/p 4 units of prbc this admission Consideration for TIPS. Patient Condition at Discharge: Fair Plan - Discharge Summary Discharge Medication List Ferrous Sulfate [Iron (65 MG Elemental)] 325 mg PO BID 02/24/17 [History] Mirtazapine [Remeron] 45 mg PO HS 02/24/17 [History] Pravastatin Sodium [Pravachol] 40 mg PO DAILY 02/24/17 [History] metFORMIN HCL [Glucophage] 500 mg PO BID 02/24/17 [History] Magnesium Oxide [Mag-Ox] 400 mg PO TID #90 tab 02/27/17 [Rx] Furosemide [Lasix] 20 mg PO BID 04/05/17 [History] Nitroglycerin Sl Tabs [Nitrostat] 0.4 mg SUBLINGUAL Q5M PRN 04/05/17 [History] Sennosides [Senokot] 8.6 mg PO DAILY PRN 04/05/17 [History] Spironolactone [Aldactone] 100 mg PO BID 04/05/17 [History] amLODIPine [Norvasc] 10 mg PO DAILY 04/05/17 [History] Artificial Tears-Hypromellose [Artificial Tear Drops] 1 drops BOTH EYES TID PRN #0 bottle 04/12/17 [Rx] Folic Acid 1 mg PO DAILY@1200 #30 tab 04/12/17 [Rx] Nicotine 14Mg/24Hr Patch [Habitrol] 1 patch TRANSDERM DAILY #30 patch 04/12/17 [ Rx] Phytonadione Oral [Vitamin K Oral] 5 mg PO DAILY #30 oral.syrg 04/12/17 [Rx] Propranolol [Inderal] 10 mg PO TID #90 tab 04/12/17 [Rx] Rifaximin [Xifaxan] 550 mg PO BID #60 tablet 04/12/17 [Rx] Thiamine [Vitamin B-1] 100 mg PO DAILY@1200 #30 tab 04/12/17 [Rx] Albuterol Inhaler [Ventolin Hfa Inhaler] 1 - 2 puff INHALATION RT-Q4H PRN [History] Lactulose [Cephulac] 30 gm PO QID 04/15/17 [History] Multivitamins, Thera [Multivitamin (formulary)] 1 tab PO DAILY@1200 04/15/17 [ History] QUEtiapine [SEROquel] 100 mg PO HS 04/15/17 [History] Follow up Appointment(s)/Referral(s): Lenora Tan MD [Primary Care Provider] - 1-2 days
[2017-04-19] MEDS ORDERED: traMADol 50 MG TAB PO STA (16:04)
[2017-04-19] MEDS: ALBUTEROL NEBULIZED 2.5 MG/3 ML INHALATION PRN (16:22)
[2017-04-19 16:39] LABS: Glucose,Whole Blood 90 mg/dL (75-99)
[2017-04-19 18:00] VITALS: BP 109/67; PULSE 57; RESP 18; TEMP 96.9
== END 2017-04-19 18:06 | disposition short-term general hospital (02) | DRG 432 ==
LOC: EC 17:23 → 6SEL 20:25 → 6ICU 23:16 → 6SEL 04-18 12:27
PROVIDERS: ADMIT Internal Medicine; ATTEND Internal Medicine
PROC: 30233N1 Transfusion of Nonautologous Red Blood Cells into Peripheral Vein, Percutaneous Approach (ICD-10-PCS; 2017-04-15)
PROC: 0DJ08ZZ Inspection of Upper Intestinal Tract, Via Natural or Artificial Opening Endoscopic (ICD-10-PCS; 2017-04-16)
PROC: 30233L1 Transfusion of Nonautologous Fresh Plasma into Peripheral Vein, Percutaneous Approach (ICD-10-PCS; principal; 2017-04-16 07:30)
DX: K70.31 Alcoholic cirrhosis of liver with ascites (principal); J18.9 Pneumonia, unspecified organism; K70.11 Alcoholic hepatitis with ascites; K92.0 Hematemesis; D68.4 Acquired coagulation factor deficiency; E87.2 Acidosis; I95.9 Hypotension, unspecified; K76.6 Portal hypertension; J44.0 Chronic obstructive pulmonary disease with (acute) lower respiratory infection; I85.10 Secondary esophageal varices without bleeding; E87.1 Hypo-osmolality and hyponatremia; D62 Acute posthemorrhagic anemia; K92.1 Melena; K72.90 Hepatic failure, unspecified without coma; E88.09 Other disorders of plasma-protein metabolism, not elsewhere classified; E87.5 Hyperkalemia; I86.4 Gastric varices; K31.89 Other diseases of stomach and duodenum; F10.20 Alcohol dependence, uncomplicated; E03.9 Hypothyroidism, unspecified; E78.5 Hyperlipidemia, unspecified; E86.1 Hypovolemia; E11.9 Type 2 diabetes mellitus without complications; F17.210 Nicotine dependence, cigarettes, uncomplicated; I10 Essential (primary) hypertension; F31.9 Bipolar disorder, unspecified; Z87.442 Personal history of urinary calculi; Z90.5 Acquired absence of kidney; Z86.73 Personal history of transient ischemic attack (TIA), and cerebral infarction without residual deficits; Z79.2 Long term (current) use of antibiotics; Z79.84 Long term (current) use of oral hypoglycemic drugs; Z79.899 Other long term (current) drug therapy; Y95 Nosocomial condition
CPT/HCPCS: 36415; 36430; 43235; 71010; 74020; 80048; 80053; 81003; 82140; 82150; 82248; 82272; 83605; 83690; 83735; 84100; 85025; 85027; 85610; 85730; 86850; 86870; 86880; 86900; 86901; 86920; 87040; 94640; 94760; 96361; 96374; 99285

== ENCOUNTER → 2017-05-11 | Outpatient (CLI) | payer OTHER ==
[2017-05-11 12:04] LABS: ALT 35 U/L (21-72); AST 73 U/L (17-59); Alkaline Phosphatase 141 U/L (38-126); Anion Gap 8 mmol/L; Blood Urea Nitrogen 18 mg/dL (9-20); Calcium 9.3 mg/dL (8.4-10.2); Carbon Dioxide 22 mmol/L (22-30); Chloride 109 mmol/L (98-107); Glucose 106 mg/dL (74-99); Non-African American GFR(MDRD) >60 (>60 ml/min/1.73 sqM); Potassium 4.5 mmol/L (3.5-5.1); Sodium 139 mmol/L (137-145); Total Bilirubin 1.5 mg/dL (0.2-1.3); Total Protein 7.6 g/dL (6.3-8.2)
[2017-05-11 12:13] LABS: Anisocytosis Slight; Basophils # (A) 0.1 k/uL (0-0.2); Basophils % (A) 1 %; CH 29.7; CHCM 30.4; Eosinophils # (A) 0.1 k/uL (0-0.7); Eosinophils % (A) 2 %; HCT 36.2 % (39.0-53.0); HDW 2.63; Hypochromasia Moderate; Luc # (Auto) 0.24; Luc % (Auto) 4; Lymphocytes # (A) 0.8 k/uL (1.0-4.8); Lymphocytes % (A) 14 %; MCH 29.9 pg (25.0-35.0); MCHC 30.5 g/dL (31.0-37.0); MCV 98.1 fL (80.0-100.0); Macrocytosis Moderate; Mean Platelet Volume 8.3; Monocytes # (A) 0.6 k/uL (0-1.0); Monocytes % (A) 11 %; Neutrophils # (A) 3.9 k/uL (1.3-7.7); Neutrophils % (A) 68 %; RBC 3.69 m/uL (4.30-5.90); RDW 19.5 % (11.5-15.5); WBC 5.8 k/uL (3.8-10.6)
== END | disposition home or self-care (01) ==
LOC: LABWHC1 11:26
DX: K70.31 Alcoholic cirrhosis of liver with ascites (principal)
CPT/HCPCS: 36415; 80053; 82105; 82140; 85025

== ENCOUNTER → 2017-07-02 | Outpatient (CLI) | payer OTHER ==
[2017-07-02 11:25] LABS: Anisocytosis Slight; Basophils % (A) 1 %; CH 31.9; CHCM 32.6; Eosinophils # (A) 0.1 k/uL (0-0.7); Eosinophils % (A) 4 %; HCT 37.9 % (39.0-53.0); HDW 2.97; HGB 12.1 gm/dL (13.0-17.5); Luc % (Auto) 3; Lymphocytes % (A) 30 %; MCH 31.4 pg (25.0-35.0); MCV 98.2 fL (80.0-100.0); Macrocytosis Slight; Mean Platelet Volume 8.9; Monocytes # (A) 0.3 k/uL (0-1.0); Monocytes % (A) 9 %; Neutrophils # (A) 1.7 k/uL (1.3-7.7); Neutrophils % (A) 54 %; RBC 3.85 m/uL (4.30-5.90); RDW 16.5 % (11.5-15.5); WBC 3.2 k/uL (3.8-10.6); WBC (Perox) 3.48
[2017-07-02 11:42] LABS: INR 1.5 (<1.2); Prothrombin Time 14.4 sec (9.0-12.0)
[2017-07-02 13:14] LABS: ALT 36 U/L (21-72); AST 52 U/L (17-59); Alkaline Phosphatase 105 U/L (38-126); Anion Gap 7 mmol/L; Blood Urea Nitrogen 9 mg/dL (9-20); Carbon Dioxide 23 mmol/L (22-30); Chloride 109 mmol/L (98-107); Glucose 214 mg/dL (74-99); Magnesium 1.7 mg/dL (1.6-2.3); Non-African American GFR(MDRD) >60 (>60 ml/min/1.73 sqM); Sodium 139 mmol/L (137-145); Total Bilirubin 1.3 mg/dL (0.2-1.3); Total Protein 6.7 g/dL (6.3-8.2)
[2017-07-02 13:17] LABS: Hemoglobin A1C 5.1 % (4.2-6.1)
[2017-07-02 13:59] LABS: Vitamin B12 827 pg/mL (239-931)
== END | disposition home or self-care (01) ==
LOC: LABWHC1 11:03
PROVIDERS: ATTEND Physician Assistant Medical
DX: E55.9 Vitamin D deficiency, unspecified (principal); E11.9 Type 2 diabetes mellitus without complications; F10.20 Alcohol dependence, uncomplicated; K70.31 Alcoholic cirrhosis of liver with ascites
CPT/HCPCS: 36415; 80053; 82140; 82306; 82607; 83036; 83735; 84439; 84443; 85025; 85610

== ENCOUNTER → 2017-11-18 | Outpatient (CLI) | payer OTHER ==
[2017-11-18 08:53] LABS: CH 31.4; CHCM 32.4; HCT 43.4 % (39.0-53.0); HDW 2.71; HGB 13.7 gm/dL (13.0-17.5); MCH 30.6 pg (25.0-35.0); MCHC 31.4 g/dL (31.0-37.0); MCV 97.4 fL (80.0-100.0); Macrocytosis Slight; Mean Platelet Volume 8.8; RBC 4.46 m/uL (4.30-5.90); RDW 15.9 % (11.5-15.5); WBC 4.7 k/uL (3.8-10.6)
[2017-11-18 09:37] LABS: ALT 40 U/L (21-72); AST 53 U/L (17-59); Alkaline Phosphatase 133 U/L (38-126); Anion Gap 6 mmol/L; Blood Urea Nitrogen 13 mg/dL (9-20); Calcium 9.9 mg/dL (8.4-10.2); Carbon Dioxide 29 mmol/L (22-30); Chloride 106 mmol/L (98-107); Cholesterol 195 mg/dL (<200); Glucose 113 mg/dL (74-99); HDL Cholesterol 58 mg/dL (40-60); Non-African American GFR(MDRD) >60 (>60 ml/min/1.73 sqM); Potassium 4.5 mmol/L (3.5-5.1); Sodium 141 mmol/L (137-145); Total Bilirubin 1.3 mg/dL (0.2-1.3); Total Protein 7.8 g/dL (6.3-8.2)
== END | disposition home or self-care (01) ==
LOC: LABWHC1 08:20
DX: E78.2 Mixed hyperlipidemia (principal); E11.9 Type 2 diabetes mellitus without complications; K70.31 Alcoholic cirrhosis of liver with ascites
CPT/HCPCS: 36415; 80053; 80061; 82105; 82140; 83036; 85027

== ENCOUNTER 2017-12-21 13:58 | Emergency (ER) | payer OTHER ==
[2017-12-21 15:23] LABS: Appearance,Urine Clear (Clear); Bacteria,Urine Few /hpf; Bilirubin,Urine Negative (Negative); Blood,Urine Large (Negative); Color,Urine Light Red; Glucose,Urine (UA) Negative (Negative); Ketones,Urine Negative (Negative); Leukocyte Esterase,Urine Large (Negative); Nitrite,Urine Negative (Negative); Protein,Urine Trace (Negative); RBC,Urine 75 /hpf (0-5); Specific Gravity,Urine 1.006 (1.001-1.035); Squamous Epithelial Cell,Urine 1 /hpf (0-4); Urobilinogen,Urine <2.0 mg/dL (<2.0); WBC,Urine 71 /hpf (0-5)
[2017-12-21 15:29] LABS: Basophils % (A) 0 %; Eosinophils # (A) 0.1 k/uL (0-0.7); Eosinophils % (A) 3 %; HCT 39.1 % (39.0-53.0); HGB 12.8 gm/dL (13.0-17.5); Lymphocytes # (A) 0.7 k/uL (1.0-4.8); Lymphocytes % (A) 27 %; MCH 31.3 pg (25.0-35.0); MCHC 32.7 g/dL (31.0-37.0); MCV 95.6 fL (80.0-100.0); Mean Platelet Volume 10.2; Monocytes # (A) 0.3 k/uL (0-1.0); Monocytes % (A) 12 %; Neutrophils # (A) 1.4 k/uL (1.3-7.7); Neutrophils % (A) 54 %; RBC 4.08 m/uL (4.30-5.90); RDW 13.9 % (11.5-15.5); WBC 2.6 k/uL (3.8-10.6)
[2017-12-21 15:39] LABS: Anion Gap 8 mmol/L; Blood Urea Nitrogen 14 mg/dL (9-20); Calcium 9.4 mg/dL (8.4-10.2); Carbon Dioxide 22 mmol/L (22-30); Chloride 106 mmol/L (98-107); Glucose 250 mg/dL (74-99); Potassium 4.5 mmol/L (3.5-5.1); Sodium 136 mmol/L (137-145)
--- NOTE | 2017-12-21 15:50 | CT ---
EXAMINATION TYPE: CT abdomen pelvis wo con DATE OF EXAM: 12/21/2017 COMPARISON: NONE HISTORY: Hematuria without pain CT DLP: 1110 mGycm Automated exposure control for dose reduction was used. TECHNIQUE: Helical acquisition of images was performed from the lung bases through the pelvis. FINDINGS: LUNG BASES: Linear left basilar subsegmental atelectasis is noted. Small paraseptal bleb is also seen . LIVER/GB: There is a cirrhotic morphology of the liver and TIPS catheter. Embolization coils are seen near the splenic veins from prior probable variceal embolizations. Cholelithiasis is incidentally no driss. Evaluation for hepatic masses is limited without the utilization of intravenous contrast and sec ondary to the patient's underlying hepatocellular disease. There is splenic enlargement indicative of portal venous hypertension and gastrohepatic varices, splenic varices and esophageal varices. There is also recanalization of the umbilical vein. No abdominal ascites or anasarca is noted. PANCREAS: No significant abnormality is seen. SPLEEN: Splenomegaly ADRENALS: No significant abnormality is seen. KIDNEYS: Some renal arterial calcifications are seen although at least one punctate 2 mm upper pole a nd one punctate 2 mm lower pole nonobstructing left renal calculi are seen. 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 There is compensatory hypertrophy of the left kidney. No evidence of hy dronephrosis. No hydroureter. FREE AIR: No free air is visualized ADENOPATHY: None visualized REPRODUCTIVE ORGANS: No significant abnormality is seen URINARY BLADDER: Urinary bladder is partially decompressed with circumferential urinary bladder wall thickening and trabeculation. Correlation with urinalysis is recommended. OSSEOUS STRUCTURES: Sclerotic focus of the L3 vertebral body likely represents a benign bone island. Osseous structures appear intact. BOWEL: No evidence of bowel obstruction, bowel enlargement or dilatation. Evaluation is somewhat rivas ited given the lack of oral contrast. IMPRESSION: 1. NONOBSTRUCTING LEFT RENAL CALCULI. NO OBSTRUCTIVE UROPATHY. 2. CIRCUMFERENTIAL TRABECULATED URINARY BLADDER WALL THICKENING. THIS IS PARTIALLY RELATED TO INCOMPL ETE DISTENTION BUT CYSTITIS IS ALSO SUSPECTED. CORRELATE WITH URINALYSIS. 3. CIRRHOTIC MORPHOLOGY OF THE LIVER WITH PORTAL VENOUS SHUNT, SEQUELA PORTAL VENOUS HYPERTENSION, AN D ABDOMINAL/ESOPHAGEAL VARICES. NO EVIDENCE OF ASCITES. 4. CHOLELITHIASIS.
[2017-12-21 16:18] LABS: Platelet Count 73 k/uL (150-450)
[2017-12-21 16:21] VITALS: BP 139/65; PULSE 64; RESP 16; TEMP 98.1
--- NOTE | 2017-12-21 16:29 | ED ---
Male Urogenital HPI - General Chief complaint: Urogenital Stated complaint: blood in urine Time Seen by Provider: 12/21/17 14:53 Source: patient, family Mode of arrival: ambulatory Limitations: no limitations - History of Present Illness Initial comments: This 57-year-old white male presents with a complaint of some hematuria. He states that it just started this morning. He denies any urgency or dysuria. He states that he normally has frequency due to him being on Lasix and this is unchanged. He denies any fevers or chills. He denies any abdominal or flank pain. He apparently was seen at the urgent care and they sent him to the ER for further evaluation. They did not note any urinary tract infection at the urgent care. He denies any previous similar incidents. - Related Data Home Medications Medication Instructions Recorded Confirmed Ferrous Sulfate [Iron (65 MG 325 mg PO BID 02/24/17 12/21/17 Elemental)] Pravastatin Sodium [Pravachol] 40 mg PO DAILY 02/24/17 12/21/17 metFORMIN HCL [Glucophage] 500 mg PO DAILY 02/24/17 12/21/17 Nitroglycerin Sl Tabs [Nitrostat] 0.4 mg SUBLINGUAL Q5M PRN 04/05/17 12/21/17 Albuterol Inhaler [Ventolin Hfa 1 - 2 puff INHALATION RT-Q4H PRN 04/15/17 Inhaler] QUEtiapine [SEROquel] 150 mg PO HS 04/15/17 12/21/17 Cholecalciferol [Vitamin D3] 5,000 unit PO DAILY 11/08/17 12/21/17 Levothyroxine Sodium [Synthroid] 175 mcg PO DAILY 11/08/17 12/21/17 Multivitamins, Thera [Multivitamin 1 tab PO DAILY@1200 12/21/17 12/21/17 (formulary)] Previous Rx's Medication Instructions Recorded Magnesium Oxide [Mag-Ox] 400 mg PO TID #90 tab 02/27/17 Folic Acid 1 mg PO DAILY@1200 #30 tab 04/12/17 Rifaximin [Xifaxan] 550 mg PO BID #60 tablet 04/12/17 Furosemide [Lasix] 40 mg PO BID #60 tab 11/10/17 Lactulose [Cephulac] 20 gm PO QID #0 11/10/17 Thiamine [Vitamin B-1] 100 mg PO DAILY@1200 #30 tab 11/10/17 Ciprofloxacin HCl [Cipro] 500 mg PO Q12HR #20 tablet 12/21/17 Allergies Allergy/AdvReac Type Severity Reaction Status Date / Time Penicillins Allergy Unknown Verified 12/21/17 15:28 Childhood Review of Systems ROS Statement: Those systems with pertinent positive or pertinent negative responses have been documented in the HPI. ROS Other: All systems not noted in ROS Statement are negative. Past Medical History Past Medical History: COPD, CVA/TIA, Diabetes Mellitus, Hearing Disorder / Deafness, Hyperlipidemia, Hypertension, Liver Disease, Thyroid Disorder Additional Past Medical History / Comment(s): Alcoholism, alcoholic liver cirrhosis, history of hepatic encephalopathy, portal hypertension and esophageal varices and portal hypertensive gastropathy, bipolar disorder, depression, CVA, COPD, diabetes mellitus, hypertension, hypothyroidism, per "lt ear is deaf" History of Any Multi-Drug Resistant Organisms: None Reported Past Surgical History: Orthopedic Surgery Additional Past Surgical History / Comment(s): Right nephrectomy, bilateral knee surgery, stents for kidney stones, EGD Past Anesthesia/Blood Transfusion Reactions: No Reported Reaction Additional Past Anesthesia/Blood Transfusion Reaction / Comment(s): blood trandfusion - no known reaction Past Psychological History: Bipolar, Depression Smoking Status: Current every day smoker Past Alcohol Use History: None Reported Past Drug Use History: None Reported - Past Family History Mother Additional Family Medical History / Comment(s): skin cancer Father History Unknown: Yes Additional Family Medical History / Comment(s): pt was raised buy his step dad. General Exam - General Exam Comments Initial Comments: GENERAL: The patient is well nourished and well hydrated. VITAL SIGNS: Heart rate, blood pressure, respiratory rate reviewed as recorded in nurse's notes. EYES: Pupils are round and reactive. Extraocular movements are intact. No conjunctival / lid redness or swelling. ENT: No external evidence of injury, swelling, or ecchymosis. Airway is patent. Throat is clear. NECK: Nontender. No swelling or evidence of injury. No subcutaneous emphysema. Trachea is midline. No thyroid mass. HEART: Regular rate and rhythm. Good peripheral pulses. LUNGS/CHEST: Breath sounds clear and equal bilaterally. No rales, rhonchi, or wheezes. No ecchymosis, subcutaneous emphysema, or tenderness. ABDOMEN: Abdomen soft without tenderness. No palpable masses or organomegaly. No peritoneal signs. No abdominal wall swelling or ecchymosis. EXTREMITIES: No extremity tenderness. Normal muscle tone and function. No thoracolumbar tenderness. NEUROLOGIC: Sensation is grossly intact. Cranial nerve exam reveals face is symmetrical, tongue is midline, speech is clear. SKIN: No abrasions or ecchymosis is noted. No induration or masses noted. PSYCHIATRIC: Alert and oriented. Appropriate behavior and judgment. Limitations: no limitations Course Vital Signs 12/21/17 12/21/17 14:55 16:21 Temperature 98.3 F 98.1 F Pulse Rate 90 64 Respiratory 20 16 Rate Blood Pressure 144/65 139/65 O2 Sat by Pulse 98 95 Oximetry Medical Decision Making - Medical Decision Making The patient was seen and examined. All diagnostics were reviewed. The computed tomography scan of the abdomen and pelvis does show some stones in the kidneys but there is no obstructive uropathy noted. They do note some cystitis. The scan also shows multiple sequelae of his advanced liver disease and cirrhosis. Please see report for details. He apparently has stopped the alcohol use. The urinalysis does show evidence of hematuria but it also shows evidence of a urinary tract infection. It is felt as though he likely does have gross hematuria due to the urinary tract infection. He will be treated with antibiotics. The laboratory does show evidence of a pancytopenia. This is a changes compared to previous. The exact cause is not definitively determine but it is felt as though he should have close follow-up with his primary care physician in this regard. Return parameters are discussed and he leaves in no distress. - Lab Data Result diagrams: 12/21/17 15:18 12/21/17 15:18 Lab Results 12/21/17 12/21/17 12/21/17 Range/Units 15:00 15:18 15:18 WBC 2.6 L (3.8-10.6) k/uL RBC 4.08 L (4.30-5.90) m/uL Hgb 12.8 L (13.0-17.5) gm/dL Hct 39.1 (39.0-53.0) % MCV 95.6 (80.0-100.0) fL MCH 31.3 (25.0-35.0) pg MCHC 32.7 (31.0-37.0) g/dL RDW 13.9 (11.5-15.5) % Plt Count 73 L (150-450) k/uL Neutrophils % 54 % Lymphocytes % 27 % Monocytes % 12 % Eosinophils % 3 % Basophils % 0 % Neutrophils # 1.4 (1.3-7.7) k/uL Lymphocytes # 0.7 L (1.0-4.8) k/uL Monocytes # 0.3 (0-1.0) k/uL Eosinophils # 0.1 (0-0.7) k/uL Basophils # 0.0 (0-0.2) k/uL Manual Slide Review Performed RBC Morphology Normal Sodium 136 L (137-145) mmol/L Potassium 4.5 (3.5-5.1) mmol/L Chloride 106 (98-107) mmol/L Carbon Dioxide 22 (22-30) mmol/L Anion Gap 8 mmol/L BUN 14 (9-20) mg/dL Creatinine 0.86 (0.66-1.25) mg/dL Est GFR (MDRD) Af Amer >60 (>60 ml/min/1.73 sqM) Est GFR (MDRD) Non-Af >60 (>60 ml/min/1.73 sqM) Glucose 250 H (74-99) mg/dL Calcium 9.4 (8.4-10.2) mg/dL Urine Color Light Red Urine Appearance Clear (Clear) Urine pH 6.0 (5.0-8.0) Ur Specific [place] 1.006 (1.001-1.035) Urine Protein Trace H (Negative) Urine Glucose (UA) Negative (Negative) Urine Ketones Negative (Negative) Urine Blood Large H (Negative) Urine Nitrite Negative (Negative) Urine Bilirubin Negative (Negative) Urine Urobilinogen <2.0 (<2.0) mg/dL Ur Leukocyte Esterase Large H (Negative) Urine RBC 75 H (0-5) /hpf Urine WBC 71 H (0-5) /hpf Ur Squamous Epith Cells 1 (0-4) /hpf Urine Bacteria Few H (None) /hpf Disposition Clinical Impression: Pancytopenia, UTI (urinary tract infection), Hematuria Disposition: HOME SELF-CARE Condition: Good Instructions: Urinary Tract Infection in Men (ED), Hematuria (ED) Prescriptions: Ciprofloxacin HCl [Cipro] 500 mg PO Q12HR #20 tablet Referrals: Lenora Tan MD [Primary Care Provider] - 1-2 days Time of Disposition: 16:27
[2017-12-21] MEDS ORDERED: LEVOFLOXACIN 750 MG TAB PO STA (16:34)
== END 2017-12-21 16:49 | disposition home or self-care (01) ==
LOC: EC 13:58
DX: N39.0 Urinary tract infection, site not specified (principal); D61.818 Other pancytopenia; E11.9 Type 2 diabetes mellitus without complications; E78.5 Hyperlipidemia, unspecified; E03.9 Hypothyroidism, unspecified; F31.9 Bipolar disorder, unspecified; F17.200 Nicotine dependence, unspecified, uncomplicated; Z86.73 Personal history of transient ischemic attack (TIA), and cerebral infarction without residual deficits; Z79.84 Long term (current) use of oral hypoglycemic drugs; Z79.899 Other long term (current) drug therapy; Z88.0 Allergy status to penicillin
CPT/HCPCS: 36415; 74176; 80048; 81001; 85025; 99284

== ENCOUNTER → 2018-03-25 | Outpatient (CLI) | payer OTHER ==
[2018-03-25 08:54] LABS: Basophils # (A) 0.1 k/uL (0-0.2); Basophils % (A) 1 %; Eosinophils # (A) 0.2 k/uL (0-0.7); Eosinophils % (A) 4 %; HCT 47.9 % (39.0-53.0); HGB 16.2 gm/dL (13.0-17.5); Lymphocytes # (A) 1.6 k/uL (1.0-4.8); Lymphocytes % (A) 32 %; MCH 30.8 pg (25.0-35.0); MCHC 33.8 g/dL (31.0-37.0); MCV 90.9 fL (80.0-100.0); Mean Platelet Volume 8.9; Monocytes # (A) 0.4 k/uL (0-1.0); Monocytes % (A) 8 %; Neutrophils # (A) 2.6 k/uL (1.3-7.7); Neutrophils % (A) 53 %; Platelet Count 108 k/uL (150-450); RBC 5.27 m/uL (4.30-5.90); RDW 13.7 % (11.5-15.5); WBC 4.9 k/uL (3.8-10.6)
[2018-03-25 09:00] LABS: INR 1.5 (<1.2); Prothrombin Time 13.7 sec (9.0-12.0)
[2018-03-25 09:03] LABS: ALT 34 U/L (21-72); AST 44 U/L (17-59); Albumin 3.9 g/dL (3.5-5.0); Alkaline Phosphatase 162 U/L (38-126); Anion Gap 12 mmol/L; Bilirubin, Delta 0.7 mg/dL (0.0-0.2); Bilirubin,Unconjugated 1.8 mg/dL (0.0-1.1); Blood Urea Nitrogen 12 mg/dL (9-20); Calcium 10.1 mg/dL (8.4-10.2); Carbon Dioxide 28 mmol/L (22-30); Chloride 102 mmol/L (98-107); Cholesterol 163 mg/dL (<200); Glucose 274 mg/dL (74-99); HDL Cholesterol 45 mg/dL (40-60); LDL Cholesterol,Calculated 87 mg/dL (0-99); Potassium 4.1 mmol/L (3.5-5.1); Sodium 142 mmol/L (137-145); Total Bilirubin 2.5 mg/dL (0.2-1.3); Triglycerides 153 mg/dL (<150)
[2018-03-25 09:20] LABS: T4, Free (Free Thyroxine) 2.12 ng/dL (0.78-2.19)
[2018-03-25 16:19] LABS: Iron Saturation 54.74 (15.00-50.00)
[2018-03-25 17:23] LABS: Hemoglobin A1C 10.8 % (4.0-6.0)
== END | disposition home or self-care (01) ==
LOC: LABWHC1 08:28
PROVIDERS: ATTEND Physician Assistant
DX: K70.30 Alcoholic cirrhosis of liver without ascites (principal); E11.9 Type 2 diabetes mellitus without complications; E03.9 Hypothyroidism, unspecified
CPT/HCPCS: 36415; 80053; 80061; 82140; 82248; 83036; 83540; 83550; 84439; 84443; 85025; 85610

== ENCOUNTER → 2018-07-01 | Outpatient (CLI) | payer OTHER ==
[2018-07-01 09:11] LABS: HGB 12.8 gm/dL (13.0-17.5); MCH 31.2 pg (25.0-35.0); MCHC 33.6 g/dL (31.0-37.0); MCV 92.8 fL (80.0-100.0); Mean Platelet Volume 8.2; RDW 13.3 % (11.5-15.5); WBC 2.8 k/uL (3.8-10.6)
[2018-07-01 09:25] LABS: Platelet Count 61 k/uL (150-450)
[2018-07-01 10:14] LABS: ALT 35 U/L (21-72); AST 41 U/L (17-59); Albumin 3.1 g/dL (3.5-5.0); Alkaline Phosphatase 163 U/L (38-126); Anion Gap 7 mmol/L; Blood Urea Nitrogen 14 mg/dL (9-20); Calcium 9.5 mg/dL (8.4-10.2); Carbon Dioxide 24 mmol/L (22-30); Chloride 105 mmol/L (98-107); Glucose 277 mg/dL (74-99); Magnesium 1.6 mg/dL (1.6-2.3); Potassium 3.9 mmol/L (3.5-5.1); Sodium 136 mmol/L (137-145); Total Bilirubin 1.2 mg/dL (0.2-1.3); Total Protein 6.7 g/dL (6.3-8.2)
[2018-07-01 10:27] LABS: T4, Free (Free Thyroxine) 1.43 ng/dL (0.78-2.19)
[2018-07-01 16:34] LABS: Iron Saturation 20.88 (15.00-50.00)
== END | disposition home or self-care (01) ==
LOC: LABWHC1 08:47
PROVIDERS: ATTEND Physician Assistant Medical
DX: E78.2 Mixed hyperlipidemia (principal); E55.9 Vitamin D deficiency, unspecified; Z79.899 Other long term (current) drug therapy
CPT/HCPCS: 36415; 80053; 82140; 82306; 82607; 83540; 83550; 83735; 84439; 84443; 85027

== ENCOUNTER 2018-08-05 13:48 | Observation (INO) | payer OTHER ==
[2018-08-05] MEDS ORDERED: SODIUM CHLORIDE 0.9% 1,000 ML IV ONE (14:08)
--- NOTE | 2018-08-05 14:23 | ED ---
General Adult HPI - General Chief complaint: Altered Mental Status Stated complaint: Altered LOC Time Seen by Provider: 08/05/18 14:08 Source: family, EMS, RN notes reviewed, old records reviewed Mode of arrival: EMS Limitations: altered mental status - History of Present Illness Initial comments: This is a 4-year-old male to the ER for evaluation of multiple altered mental status. Patient's poor historian unable to give history. Patient has known underlying history of hepatic cirrhosis secondary to alcohol use. Hyperammonemia secondary to cirrhosis. History obtained from patient EMS. They deny any recent alcohol use - Related Data Home Medications Medication Instructions Recorded Confirmed Ferrous Sulfate [Iron (65 MG 325 mg PO BID 02/24/17 08/05/18 Elemental)] metFORMIN HCL [Glucophage] 500 mg PO TID 02/24/17 08/05/18 Nitroglycerin Sl Tabs [Nitrostat] 0.4 mg SUBLINGUAL Q5M PRN 04/05/17 08/05/18 Levothyroxine Sodium [Synthroid] 175 mcg PO DAILY 11/08/17 08/05/18 Multivitamins, Thera [Multivitamin 1 tab PO DAILY@1200 12/21/17 08/05/18 (formulary)] Furosemide [Lasix] 20 mg PO DAILY 08/05/18 08/05/18 Lisinopril [Prinivil] 5 mg PO DAILY 08/05/18 08/05/18 QUEtiapine FUMARATE [SEROquel] 200 mg PO HS 08/05/18 08/05/18 Rifaximin [Xifaxan] 550 mg PO AC-BID 08/05/18 08/05/18 Previous Rx's Medication Instructions Recorded Magnesium Oxide [Mag-Ox] 400 mg PO TID #90 tab 02/27/17 Folic Acid 1 mg PO DAILY@1200 #30 tab 04/12/17 Allergies Allergy/AdvReac Type Severity Reaction Status Date / Time Penicillins Allergy Unknown Verified 08/05/18 14:46 Childhood Review of Systems ROS Statement: Those systems with pertinent positive or pertinent negative responses have been documented in the HPI. ROS Other: All systems not noted in ROS Statement are negative. Past Medical History Past Medical History: COPD, CVA/TIA, Diabetes Mellitus, Hearing Disorder / Deafness, Hyperlipidemia, Hypertension, Liver Disease, Thyroid Disorder Additional Past Medical History / Comment(s): Alcoholism, alcoholic liver cirrhosis, history of hepatic encephalopathy, portal hypertension and esophageal varices and portal hypertensive gastropathy, bipolar disorder, depression, CVA, COPD, diabetes mellitus, hypertension, hypothyroidism, per "lt ear is deaf" History of Any Multi-Drug Resistant Organisms: None Reported Past Surgical History: Orthopedic Surgery Additional Past Surgical History / Comment(s): Right nephrectomy, bilateral knee surgery, stents for kidney stones, EGD Past Anesthesia/Blood Transfusion Reactions: No Reported Reaction Additional Past Anesthesia/Blood Transfusion Reaction / Comment(s): blood trandfusion - no known reaction Past Psychological History: Bipolar, Depression Smoking Status: Current every day smoker Past Alcohol Use History: None Reported Past Drug Use History: None Reported - Past Family History Mother Additional Family Medical History / Comment(s): skin cancer Father History Unknown: Yes Additional Family Medical History / Comment(s): pt was raised buy his step dad. General Exam Limitations: altered mental status General appearance: alert, in no apparent distress Head exam: Present: atraumatic, normocephalic, normal inspection Eye exam: Present: normal appearance, PERRL, EOMI. Absent: scleral icterus, conjunctival injection, periorbital swelling ENT exam: Present: normal exam, mucous membranes moist Neck exam: Present: normal inspection. Absent: tenderness, meningismus, lymphadenopathy Respiratory exam: Present: normal lung sounds bilaterally. Absent: respiratory distress, wheezes, rales, rhonchi, stridor Cardiovascular Exam: Present: regular rate, normal rhythm, normal heart sounds. Absent: systolic murmur, diastolic murmur, rubs, gallop, clicks GI/Abdominal exam: Present: soft, normal bowel sounds. Absent: distended, tenderness, guarding, rebound, rigid Extremities exam: Present: normal inspection, full ROM, normal capillary refill. Absent: tenderness, pedal edema, joint swelling, calf tenderness Back exam: Present: normal inspection Neurological exam: Present: alert, oriented X3, CN II-XII intact Psychiatric exam: Present: normal affect, normal mood Skin exam: Present: warm, dry, intact, normal color. Absent: rash Course Vital Signs 08/05/18 08/05/18 13:53 15:00 Temperature 97.9 F Pulse Rate 78 65 Respiratory 18 18 Rate Blood Pressure 177/87 161/74 O2 Sat by Pulse 97 96 Oximetry - Reevaluation(s) Reevaluation #1: 08/05/18 15:03 Patient's medical record is reviewed including prior ER visits and hospitalizations EKG Findings - EKG Comments: EKG Findings:: EKG shows normal sinus rate of 74, OR 144, QRS 70, QTc 463 Medical Decision Making - Medical Decision Making 4-year-old male the ER with hepatic encephalopathy, patient is unresponsive significant significantly encephalopathic and ammonia of 103. We'll admit placed on lactulose admitted for electrolytes and evaluation - Lab Data Result diagrams: 08/05/18 14:18 08/05/18 14:18 Lab Results 08/05/18 08/05/18 08/05/18 Range/Units 14:18 14:18 14:18 WBC 3.6 L (3.8-10.6) k/uL RBC 4.60 (4.30-5.90) m/uL Hgb 14.0 (13.0-17.5) gm/dL Hct 42.6 (39.0-53.0) % MCV 92.7 (80.0-100.0) fL MCH 30.5 (25.0-35.0) pg MCHC 32.9 (31.0-37.0) g/dL RDW 14.5 (11.5-15.5) % PT (9.0-12.0) sec INR (<1.2) APTT (22.0-30.0) sec Sodium (137-145) mmol/L Potassium (3.5-5.1) mmol/L Chloride (98-107) mmol/L Carbon Dioxide (22-30) mmol/L Anion Gap mmol/L BUN (9-20) mg/dL Creatinine (0.66-1.25) mg/dL Est GFR (CKD-EPI)AfAm (>60 ml/min/1.73 sqM) Est GFR (CKD-EPI)NonAf (>60 ml/min/1.73 sqM) Glucose (74-99) mg/dL Calcium (8.4-10.2) mg/dL Total Bilirubin (0.2-1.3) mg/dL AST (17-59) U/L ALT (21-72) U/L Alkaline Phosphatase (38-126) U/L Ammonia 105 H (<30) umol/L Total Creatine Kinase 46 L (55-170) U/L Total Protein (6.3-8.2) g/dL Albumin (3.5-5.0) g/dL 08/05/18 08/05/18 Range/Units 14:18 14:18 WBC (3.8-10.6) k/uL RBC (4.30-5.90) m/uL Hgb (13.0-17.5) gm/dL Hct (39.0-53.0) % MCV (80.0-100.0) fL MCH (25.0-35.0) pg MCHC (31.0-37.0) g/dL RDW (11.5-15.5) % PT 12.6 H (9.0-12.0) sec INR 1.3 H (<1.2) APTT 26.8 (22.0-30.0) sec Sodium 144 (137-145) mmol/L Potassium 4.5 (3.5-5.1) mmol/L Chloride 114 H (98-107) mmol/L Carbon Dioxide 20 L (22-30) mmol/L Anion Gap 10 mmol/L BUN 11 (9-20) mg/dL Creatinine 0.65 L (0.66-1.25) mg/dL Est GFR (CKD-EPI)AfAm >90 (>60 ml/min/1.73 sqM) Est GFR (CKD-EPI)NonAf >90 (>60 ml/min/1.73 sqM) Glucose 206 H (74-99) mg/dL Calcium 9.6 (8.4-10.2) mg/dL Total Bilirubin 1.6 H (0.2-1.3) mg/dL AST 41 (17-59) U/L ALT 34 (21-72) U/L Alkaline Phosphatase 148 H (38-126) U/L Ammonia (<30) umol/L Total Creatine Kinase (55-170) U/L Total Protein 7.5 (6.3-8.2) g/dL Albumin 3.6 (3.5-5.0) g/dL Disposition Clinical Impression: Delirium due to general medical condition, Hepatic encephalopathy Disposition: ADMITTED IP TO THIS HOSP Condition: Fair Is patient prescribed a controlled substance at d/c from ED?: No Referrals: [facility] [Primary Care Provider] - 1-2 days
[2018-08-05] MEDS ORDERED: LORazepam 2 MG/ML INJ IV STA (14:32)
[2018-08-05] MEDS ORDERED: SODIUM CHLORIDE 0.9% 1,000 ML IV STA (14:32)
[2018-08-05 14:41] LABS: INR 1.3 (<1.2); Partial Thromboplastin Time 26.8 sec (22.0-30.0); Prothrombin Time 12.6 sec (9.0-12.0)
[2018-08-05 14:45] LABS: ALT 34 U/L (21-72); AST 41 U/L (17-59); Albumin 3.6 g/dL (3.5-5.0); Alkaline Phosphatase 148 U/L (38-126); Anion Gap 10 mmol/L; Blood Urea Nitrogen 11 mg/dL (9-20); Calcium 9.6 mg/dL (8.4-10.2); Carbon Dioxide 20 mmol/L (22-30); Chloride 114 mmol/L (98-107); Glucose 206 mg/dL (74-99); Potassium 4.5 mmol/L (3.5-5.1); Sodium 144 mmol/L (137-145); Total Bilirubin 1.6 mg/dL (0.2-1.3); Total Protein 7.5 g/dL (6.3-8.2)
[2018-08-05 14:55] LABS: HCT 42.6 % (39.0-53.0); MCH 30.5 pg (25.0-35.0); MCHC 32.9 g/dL (31.0-37.0); MCV 92.7 fL (80.0-100.0); Mean Platelet Volume 9.8; Poikilocytosis Slight; RDW 14.5 % (11.5-15.5); WBC 3.6 k/uL (3.8-10.6)
[2018-08-05] MEDS ORDERED: THIAMINE 100 MG/ML 2 ML VIAL IM STA (15:00)
[2018-08-05] MEDS ORDERED: LORazepam 2 MG/ML INJ IV PRN ×3 (15:00)
[2018-08-05] MEDS ORDERED: LACTULOSE 20 GM/30 ML CUP PO ONE (15:02)
[2018-08-05 15:07] LABS: Creatine Kinase MB 0.4 ng/mL (0.0-2.4); Troponin I 0.018 ng/mL (0.000-0.034)
[2018-08-05 15:11] LABS: Band Neutrophils % 1 %; Eosinophils # (M) 0.04 k/uL (0-0.7); Lymphocytes # (M) 0.86 k/uL (1.0-4.8); Monocytes # (M) 0.29 k/uL (0-1.0); Neutrophils % (M) 66 %; Nucleated Red Blood Cells 0 /100 WBC (0-0); Total Cells Counted 100
[2018-08-05 15:12] LABS: Platelet Count 89 k/uL (150-450); Poikilocytosis (M) Present
[2018-08-05 17:05] LABS: Glucose,Whole Blood 190 mg/dL (75-99)
[2018-08-05] MEDS: THIAMINE 100 MG TAB PO SCH (17:26)
[2018-08-05] MEDS: INSULIN ASPART 100 UNIT/ML 1 ML 10 ML VIAL SQ SCH ×2 (17:44→22:12)
--- NOTE | 2018-08-05 17:50 | P.HPIM ---
History of Present Illness H&P Date: 08/05/18 Chief Complaint: Altered mental status Patient is a 58-year-old male with a known history of hypertension, diabetes type 2, history of CVA/TIA and alcohol at liver cirrhosis and previous encephalopathy was brought to the hospital due to altered mental status. Patient has been incontinent and not responding very well since morning as per family and was brought to the hospital. Denied any complaints of fever or chills. No nausea vomiting or diarrhea. Denied any complains abdominal pain. Denied any recent illnesses. Denied cough or sputum production. Patient was found have hyper ammonemia with level 104. Patient denied any recent alcohol use. Patient is awake alert and and oriented but very lethargic and could not provide complete history. Most of the history was taken from the family at bedside and EMS note. Review of Systems Constitutional: Patient denies any fever or chills . No generalized weakness or weight loss. Abdomen: Patient denied nausea vomiting and diarrhea and abdominal pain. Cardiovascular: Patient denies any chest pain or short of breath no palpitations. Respiratory: patient denied any cough is from production. No shortness of breath Complete review of systems could not be obtained from the patient. Past Medical History Past Medical History: COPD, CVA/TIA, Diabetes Mellitus, Hearing Disorder / Deafness, Hyperlipidemia, Hypertension, Liver Disease, Thyroid Disorder Additional Past Medical History / Comment(s): Alcoholism, alcoholic liver cirrhosis, history of hepatic encephalopathy, portal hypertension and esophageal varices and portal hypertensive gastropathy, bipolar disorder, depression, CVA, COPD, diabetes mellitus, hypertension, hypothyroidism, per "lt ear is deaf" History of Any Multi-Drug Resistant Organisms: None Reported Past Surgical History: Orthopedic Surgery Additional Past Surgical History / Comment(s): Right nephrectomy, bilateral knee surgery, stents for kidney stones, EGD Past Anesthesia/Blood Transfusion Reactions: No Reported Reaction Additional Past Anesthesia/Blood Transfusion Reaction / Comment(s): blood trandfusion - no known reaction Past Psychological History: Bipolar, Depression Smoking Status: Current every day smoker Past Alcohol Use History: None Reported Past Drug Use History: None Reported - Past Family History Mother Additional Family Medical History / Comment(s): skin cancer Father History Unknown: Yes Additional Family Medical History / Comment(s): pt was raised buy his step dad. Medications and Allergies Home Medications Medication Instructions Recorded Confirmed Type Ferrous Sulfate [Iron (65 MG 325 mg PO BID 02/24/17 08/05/18 History Elemental)] metFORMIN HCL [Glucophage] 500 mg PO TID 02/24/17 08/05/18 History Magnesium Oxide [Mag-Ox] 400 mg PO TID #90 tab 02/27/17 08/05/18 Rx Nitroglycerin Sl Tabs [Nitrostat] 0.4 mg SUBLINGUAL Q5M PRN 04/05/17 08/05/18 History Folic Acid 1 mg PO DAILY@1200 #30 tab 04/12/17 08/05/18 Rx Levothyroxine Sodium [Synthroid] 175 mcg PO DAILY 11/08/17 08/05/18 History Multivitamins, Thera [Multivitamin 1 tab PO DAILY@1200 12/21/17 08/05/18 History (formulary)] Furosemide [Lasix] 20 mg PO DAILY 08/05/18 08/05/18 History Lactulose [Cephulac] 30 gm PO QID 08/05/18 08/05/18 History Lisinopril [Prinivil] 5 mg PO DAILY 08/05/18 08/05/18 History QUEtiapine FUMARATE [SEROquel] 200 mg PO HS 08/05/18 08/05/18 History Rifaximin [Xifaxan] 550 mg PO AC-BID 08/05/18 08/05/18 History Allergies Allergy/AdvReac Type Severity Reaction Status Date / Time Penicillins Allergy Unknown Verified 08/05/18 14:46 Childhood Physical Exam Vitals: Vital Signs Temp Pulse Pulse Resp BP BP Pulse Ox 08/05/18 16:39 98.8 F 84 16 151/78 93 L 08/05/18 15:56 93 18 161/74 98 08/05/18 15:00 65 18 161/74 96 08/05/18 13:53 97.9 F 78 18 177/87 97 Intake and Output 08/05/18 08/05/18 08/05/18 06:59 14:59 22:59 Other: Weight 104.326 kg PHYSICAL EXAMINATION: Patient is lying in the bed comfortably, no acute distress, awake alert and oriented but very drowsy and lethargic.. HEENT: Normocephalic. Neck is supple. Pupils reactive. Nostrils clear. Oral cavity is moist. Ears reveal no drainage. Neck reveals no JVD, carotid bruits, or thyromegaly. CHEST EXAMINATION: Trachea is central. Symmetrical expansion. Lung lance clear to auscultation and percussion. CARDIAC: Normal S1, S2 with no gallops. No murmurs ABDOMEN: Soft. Bowel sounds normal. No organomegaly. No abdominal bruits. Extremities: reveal no edema. No clubbing or cyanosis Neurologically awake, alert, oriented x3 . Lethargic and drowsy. with well- coordinated movements. No focal deficits noted Skin: No rash or skin lesions. Psychiatric: Coperative. Could not be assessed completely Musculoskeletal: No joint swelling or deformity. Normal range of motion. Results CBC & Chem 7: 08/05/18 14:18 08/05/18 14:18 Labs: Abnormal Lab Results - Last 24 Hours (Table) 08/05/18 08/05/18 08/05/18 Range/Units 14:18 14:18 14:18 WBC 3.6 L (3.8-10.6) k/uL Plt Count 89 L (150-450) k/uL Lymphocytes # (Manual) 0.86 L (1.0-4.8) k/uL PT (9.0-12.0) sec INR (<1.2) Chloride (98-107) mmol/L Carbon Dioxide (22-30) mmol/L Creatinine (0.66-1.25) mg/dL Glucose (74-99) mg/dL POC Glucose (mg/dL) (75-99) mg/dL Total Bilirubin (0.2-1.3) mg/dL Alkaline Phosphatase (38-126) U/L Ammonia 105 H (<30) umol/L Total Creatine Kinase 46 L (55-170) U/L 08/05/18 08/05/18 08/05/18 Range/Units 14:18 14:18 16:55 WBC (3.8-10.6) k/uL Plt Count (150-450) k/uL Lymphocytes # (Manual) (1.0-4.8) k/uL PT 12.6 H (9.0-12.0) sec INR 1.3 H (<1.2) Chloride 114 H (98-107) mmol/L Carbon Dioxide 20 L (22-30) mmol/L Creatinine 0.65 L (0.66-1.25) mg/dL Glucose 206 H (74-99) mg/dL POC Glucose (mg/dL) 190 H (75-99) mg/dL Total Bilirubin 1.6 H (0.2-1.3) mg/dL Alkaline Phosphatase 148 H (38-126) U/L Ammonia (<30) umol/L Total Creatine Kinase (55-170) U/L Thrombosis Risk Factor Assmnt - DVT/VTE Prophylaxis DVT/VTE Prophylaxis: Pharmacologic Prophylaxis ordered Assessment and Plan Assessment: Acute hepatic encephalopathy with ammonia level 104 Alcoholic liver cirrhosis History of alcohol abuse Chronic thrombocytopenia Coagulopathy with INR level I.3 due to alcohol liver disease Hypertension. Uncontrolled Mild hyperglycemia with uncontrolled diabetes type 2. [id number] at home History of CVA/TIA without residual deficits. Hearing disorder/deafness Hyperlipidemia Hypothyroidism Portal hypertension and esophageal varices and portal hypertensive gastropathy Depression/bipolar disorder COPD stable Currently every day smoker DVT prophylaxis Plan: Patient will be continued on lactulose twice daily. Continue with gentle hydration and continue the home medications and follow up closely. Insulin sliding scale. Follow-up labs tomorrow. Further recommendations based on the clinical course. Prognosis is poor with multiple medical problems and comorbid conditions. Time with Patient: Greater than 30
[2018-08-05] MEDS ORDERED: LACTULOSE 20 GM/30 ML CUP PO SCH ×2 (18:15→21:00)
[2018-08-05 20:21] LABS: Appearance,Urine Clear (Clear); Bilirubin,Urine Negative (Negative); Blood,Urine Negative (Negative); Color,Urine Yellow; Glucose,Urine (UA) 2+ (Negative); Ketones,Urine Negative (Negative); Leukocyte Esterase,Urine Negative (Negative); Nitrite,Urine Negative (Negative); Protein,Urine Negative (Negative); Specific Gravity,Urine 1.015 (1.001-1.035)
[2018-08-05] MEDS: MAGNESIUM OXIDE 400 MG TAB PO SCH (20:22)
[2018-08-05] MEDS: LACTULOSE 20 GM/30 ML CUP PO SCH (20:25)
[2018-08-05 20:31] LABS: Amphetamine Screen,Urine Not Detected (NotDetected); Barbiturate Screen,Urine Not Detected (NotDetected); Benzodiazepines Screen,Urine Detected (NotDetected); Cocaine Screen,Urine Not Detected (NotDetected); Methadone Screen, Urine Not Detected (NotDetected); Opiate Screen,Urine Not Detected (NotDetected); Oxycodone Screen, Urine Not Detected (NotDetected); Phencyclidine Screen,Urine Not Detected (NotDetected); Tricyclic Antidepressant,Urine Detected (NotDetected); Urn Cannabinoid Scrn Not Detected (NotDetected)
[2018-08-05] MEDS ORDERED: QUEtiapine 200 MG TAB PO SCH (21:00)
[2018-08-05 21:07] LABS: Glucose,Whole Blood 234 mg/dL (75-99)
[2018-08-06 00:19] VITALS: RESP 20
[2018-08-06 06:24] VITALS: BP 156/79; PULSE 82; TEMP 98.1
[2018-08-06] MEDS ORDERED: LEVOTHYROXINE 100 MCG TAB PO SCH (06:30)
[2018-08-06] MEDS ORDERED: LEVOTHYROXINE 75 MCG TAB PO SCH (06:30)
[2018-08-06 07:30] LABS: Glucose,Whole Blood 173 mg/dL (75-99)
[2018-08-06] MEDS ORDERED: RIFAXIMIN 550 MG TABLET PO SCH (07:30)
[2018-08-06] MEDS: LACTULOSE 20 GM/30 ML CUP PO SCH ×2 (07:55→12:15)
[2018-08-06] MEDS: MAGNESIUM OXIDE 400 MG TAB PO SCH (07:55)
[2018-08-06] MEDS: INSULIN ASPART 100 UNIT/ML 1 ML 10 ML VIAL SQ SCH ×2 (07:55→12:47)
[2018-08-06 08:25] LABS: Basophils % (A) 1 %; Eosinophils # (A) 0.1 k/uL (0-0.7); Eosinophils % (A) 4 %; HCT 40.7 % (39.0-53.0); HGB 13.1 gm/dL (13.0-17.5); Lymphocytes % (A) 25 %; MCHC 32.2 g/dL (31.0-37.0); MCV 93.2 fL (80.0-100.0); Mean Platelet Volume 8.4; Monocytes # (A) 0.3 k/uL (0-1.0); Monocytes % (A) 8 %; Neutrophils # (A) 2.3 k/uL (1.3-7.7); Neutrophils % (A) 59 %; Platelet Count 101 k/uL (150-450); RBC 4.37 m/uL (4.30-5.90); WBC 3.8 k/uL (3.8-10.6)
[2018-08-06 08:31] LABS: ALT 33 U/L (21-72); AST 38 U/L (17-59); Albumin 3.2 g/dL (3.5-5.0); Alkaline Phosphatase 130 U/L (38-126); Anion Gap 6 mmol/L; Blood Urea Nitrogen 10 mg/dL (9-20); Carbon Dioxide 23 mmol/L (22-30); Chloride 112 mmol/L (98-107); Glucose 246 mg/dL (74-99); Potassium 4.1 mmol/L (3.5-5.1); Sodium 141 mmol/L (137-145); Total Bilirubin 1.8 mg/dL (0.2-1.3); Total Protein 6.8 g/dL (6.3-8.2)
[2018-08-06] MEDS ORDERED: LISINOPRIL 5 MG TAB PO SCH (09:00)
[2018-08-06] MEDS ORDERED: ENOXAPARIN 40 MG/0.4 ML SYRINGE SQ SCH (09:00)
[2018-08-06] MEDS ORDERED: FUROSEMIDE 20 MG TAB PO SCH (09:00)
[2018-08-06] MEDS ORDERED: MULTIVITAMINS, THERA 1 EACH TAB PO SCH (12:00)
[2018-08-06] MEDS ORDERED: FOLIC ACID 1 MG TAB PO SCH (12:00)
[2018-08-06] MEDS: THIAMINE 100 MG TAB PO SCH (12:15)
[2018-08-06 12:29] LABS: Glucose,Whole Blood 265 mg/dL (75-99)
[2018-08-06 18:36] LABS: Hemoglobin A1C 10.7 % (4.0-6.0)
--- NOTE | 2018-08-07 05:08 | DS ---
DISCHARGE SUMMARY FINAL DIAGNOSES: 1. Acute hepatic encephalopathy with ammonia level of 104, improved. 2. Alcoholic liver cirrhosis history. 3. History of EtOH. 4. History of chronic thrombocytopenia. 5. Coagulopathy with INR 1.3. 6. Hypertension. 7. History of CVA, TIA. DISCHARGE DISPOSITION: The patient is discharged with guarded prognosis. HISTORY OF PRESENT ILLNESS: This 58-year-old gentleman with a past medical history was admitted with acute hepatic encephalopathy with ammonia is elevated more than 100. Patient improved significantly. On exam, vitals are stable. Cardiovascular S1, S2. Abdomen is soft. Nervous system: No focal deficits. The ammonia improved to 46. The patient is keen on going home at this time. DISCHARGE DIET: Hepatic. FOLLOWUP: Follow up with the [facility] in 1-2 days. Follow up with the GI as recommended. MEDICATIONS: 1. Iron sulfate 320 mg p.o. b.i.d. 2. Lasix 20 mg p.o. daily. 3. Cephulac 30 grams p.o. q.i.d. until having 2-3 bowel movements per day. 4. Synthroid 175 mcg p.o. daily. 5. Prinivil 5 mg p.o. daily. 6. Glucophage 500 mg p.o. t.i.d. 7. Multivitamins 1 p.o. daily. 8. Nitrostat 0.4 mg p.r.n. 9. Seroquel 200 mg q.h.s. 10.Xifaxan 50 mg p.o. b.i.d. 11.Folic acid 1 mg p.o. daily. 12.Magnesium oxide 400 mg t.i.d. 13.Thiamine 100 mg p.o. b.i.d. Once again, the patient is being discharged in stable condition with guarded prognosis. MMODL / IJN: [id number] / MTDD
== END 2018-08-06 14:31 | disposition home or self-care (01) ==
LOC: EC 13:48 → 4MS4W 15:00 → INTOOBSV 15:00 → UNDODISIN 08-06 14:31
PROVIDERS: ADMIT Hospitalist; ATTEND Hospitalist
DX: K72.00 Acute and subacute hepatic failure without coma (principal); D68.9 Coagulation defect, unspecified; I85.10 Secondary esophageal varices without bleeding; K76.6 Portal hypertension; D69.6 Thrombocytopenia, unspecified; E03.9 Hypothyroidism, unspecified; E11.65 Type 2 diabetes mellitus with hyperglycemia; E78.5 Hyperlipidemia, unspecified; F17.200 Nicotine dependence, unspecified, uncomplicated; I10 Essential (primary) hypertension; J44.9 Chronic obstructive pulmonary disease, unspecified; K70.30 Alcoholic cirrhosis of liver without ascites; F31.9 Bipolar disorder, unspecified; K31.89 Other diseases of stomach and duodenum; F10.20 Alcohol dependence, uncomplicated; H91.92 Unspecified hearing loss, left ear; Z79.84 Long term (current) use of oral hypoglycemic drugs; Z79.890 Hormone replacement therapy; Z79.899 Other long term (current) drug therapy; Z90.5 Acquired absence of kidney; Z87.442 Personal history of urinary calculi; Z86.73 Personal history of transient ischemic attack (TIA), and cerebral infarction without residual deficits; Z88.0 Allergy status to penicillin; Z80.8 Family history of malignant neoplasm of other organs or systems
CPT/HCPCS: 96361 ×4; 96372 ×2; 96374; 99285; 36415; 93005; 80053 ×2; 82140 ×2; 82550; 82553; 84484; 85025 ×2; 85610; 85730; 81003; 80306; 87086; 83036; G0378 ×2; J2060; J3411; J1650

== ENCOUNTER → 2018-08-08 | Outpatient (CLI) | payer OTHER ==
[2018-08-08 09:26] LABS: HCT 37.4 % (39.0-53.0); HGB 12.5 gm/dL (13.0-17.5); MCH 30.7 pg (25.0-35.0); MCHC 33.4 g/dL (31.0-37.0); MCV 91.9 fL (80.0-100.0); Mean Platelet Volume 8.1; RBC 4.07 m/uL (4.30-5.90); RDW 13.8 % (11.5-15.5); WBC 1.8 k/uL (3.8-10.6)
[2018-08-08 09:30] LABS: Platelet Count 70 k/uL (150-450)
[2018-08-08 10:26] LABS: Band Neutrophils % 1 %; Eosinophils # (M) 0.07 k/uL (0-0.7); Lymphocytes # (M) 0.83 k/uL (1.0-4.8); Monocytes # (M) 0.27 k/uL (0-1.0); Neutrophils % (M) 34 %; Nucleated Red Blood Cells 0 /100 WBC (0-0); Total Cells Counted 100
[2018-08-08 10:28] LABS: Anisocytosis (M) Present; Poikilocytosis (M) Present
== END | disposition home or self-care (01) ==
LOC: LABWHC1 08:20
PROVIDERS: ATTEND Hospitalist
DX: D64.9 Anemia, unspecified (principal)
CPT/HCPCS: 36415; 82140; 85025

== ENCOUNTER 2018-08-18 09:19 | Observation (INO) | payer OTHER ==
[2018-08-18] MEDS ORDERED: SODIUM CHLORIDE 0.9% 1,000 ML IV ONE ×2 (09:26)
--- NOTE | 2018-08-18 09:30 | ED ---
Altered Mental Status HPI - General Stated Complaint: Altered mental status Time Seen by Provider: 08/18/18 09:19 Source: patient, EMS, RN notes reviewed, old records reviewed Mode of arrival: EMS - History of Present Illness Initial Comments: This is a [id number] male who was brought in by EMS when family called because of altered level of consciousness. This is been progressing over last 2 days apparently. The patient is awake alert oriented only to his name. Of note he was recently admitted for apparently a similar episode he does have a history of hypertension type 2 diabetes CVA/TIA has had a previous history of cirrhosis and encephalopathy he apparently at that time was found have an ammonia level CIV. Past history also includes COPD and some deafness hyperlipidemia and thyroid disorder MD Complaint: altered mental status, confusion, decreased responsiveness - Related Data Home Medications Medication Instructions Recorded Confirmed metFORMIN HCL [Glucophage] 500 mg PO TID 02/24/17 08/18/18 Nitroglycerin Sl Tabs [Nitrostat] 0.4 mg SUBLINGUAL Q5M PRN 04/05/17 08/18/18 Levothyroxine Sodium [Synthroid] 175 mcg PO DAILY 11/08/17 08/18/18 Furosemide [Lasix] 20 mg PO DAILY 08/05/18 08/18/18 Lactulose [Cephulac] 30 gm PO QID 08/05/18 08/18/18 Lisinopril [Prinivil] 5 mg PO DAILY 08/05/18 08/18/18 QUEtiapine FUMARATE [SEROquel] 200 mg PO HS 08/05/18 08/18/18 Cholecalciferol [Vitamin D3] 5,000 unit PO DAILY 08/18/18 08/18/18 Ferrous Sulfate [Feosol] 325 mg PO BID 08/18/18 08/18/18 Rifaximin [Xifaxan] 200 mg PO BID 08/18/18 08/18/18 Previous Rx's Medication Instructions Recorded Magnesium Oxide [Mag-Ox] 400 mg PO TID #90 tab 02/27/17 Folic Acid 1 mg PO DAILY@1200 #30 tab 04/12/17 Allergies Allergy/AdvReac Type Severity Reaction Status Date / Time Penicillins Allergy Unknown Verified 08/18/18 09:35 Childhood Review of Systems ROS Statement: Those systems with pertinent positive or pertinent negative responses have been documented in the HPI. ROS Other: All systems not noted in ROS Statement are negative. Limitations: ROS unobtainable due to patients medical condition Past Medical History Past Medical History: COPD, CVA/TIA, Diabetes Mellitus, Hearing Disorder / Deafness, Hyperlipidemia, Hypertension, Liver Disease, Thyroid Disorder Additional Past Medical History / Comment(s): Alcoholism, alcoholic liver cirrhosis, history of hepatic encephalopathy, portal hypertension and esophageal varices and portal hypertensive gastropathy, bipolar disorder, depression, CVA, COPD, diabetes mellitus, hypertension, hypothyroidism, per "lt ear is deaf" History of Any Multi-Drug Resistant Organisms: None Reported Past Surgical History: Orthopedic Surgery Additional Past Surgical History / Comment(s): Right nephrectomy, bilateral knee surgery, stents for kidney stones, EGD Past Anesthesia/Blood Transfusion Reactions: No Reported Reaction Additional Past Anesthesia/Blood Transfusion Reaction / Comment(s): blood trandfusion - no known reaction Past Psychological History: Bipolar, Depression Smoking Status: Current every day smoker Past Alcohol Use History: None Reported Past Drug Use History: None Reported - Past Family History Mother Additional Family Medical History / Comment(s): skin cancer Father History Unknown: Yes Additional Family Medical History / Comment(s): pt was raised buy his step dad. General Exam - General Exam Comments Initial Comments: Is a well-developed well-nourished awake alert but confused male General appearance: alert, in no apparent distress Head exam: Present: atraumatic, normocephalic, normal inspection Eye exam: Present: normal appearance, PERRL, EOMI. Absent: scleral icterus, conjunctival injection, periorbital swelling ENT exam: Present: mucous membranes dry Neck exam: Present: normal inspection. Absent: tenderness, meningismus, lymphadenopathy Respiratory exam: Present: normal lung sounds bilaterally. Absent: respiratory distress, wheezes, rales, rhonchi, stridor Cardiovascular Exam: Present: regular rate, normal rhythm, normal heart sounds. Absent: systolic murmur, diastolic murmur, rubs, gallop, clicks GI/Abdominal exam: Present: soft, normal bowel sounds. Absent: distended, tenderness, guarding, rebound, rigid Extremities exam: Present: normal inspection, full ROM, normal capillary refill. Absent: tenderness, pedal edema, joint swelling, calf tenderness Back exam: Present: normal inspection Neurological exam: Present: alert, altered, CN II-XII intact Psychiatric exam: Present: flat affect Skin exam: Present: warm, dry, intact, normal color. Absent: rash Course Vital Signs 08/18/18 08/18/18 09:31 09:56 Temperature 97.5 F L Pulse Rate 107 H 104 H Respiratory 18 18 Rate Blood Pressure 176/77 160/76 O2 Sat by Pulse 98 98 Oximetry - Reevaluation(s) Reevaluation #1: 08/18/18 12:05 Further evaluation the patient reveals no changes mentation still no family members available Medical Decision Making - Medical Decision Making Patient will be admitted for inpatient evaluation of a pack encephalopathy dehydration and altered mental status - Lab Data Result diagrams: 08/18/18 09:12 08/18/18 09:12 Lab Results 08/18/18 08/18/18 08/18/18 Range/Units 09:12 09:12 09:12 WBC 2.3 L (3.8-10.6) k/uL RBC 4.70 (4.30-5.90) m/uL Hgb 14.2 (13.0-17.5) gm/dL Hct 43.3 (39.0-53.0) % MCV 92.1 (80.0-100.0) fL MCH 30.3 (25.0-35.0) pg MCHC 32.9 (31.0-37.0) g/dL RDW 14.5 (11.5-15.5) % Plt Count 68 L (150-450) k/uL Neutrophils % 50 % Lymphocytes % 32 % Monocytes % 7 % Eosinophils % 5 % Basophils % 2 % Neutrophils # 1.1 L (1.3-7.7) k/uL Lymphocytes # 0.7 L (1.0-4.8) k/uL Monocytes # 0.2 (0-1.0) k/uL Eosinophils # 0.1 (0-0.7) k/uL Basophils # 0.1 (0-0.2) k/uL Manual Slide Review Performed PT (9.0-12.0) sec INR (<1.2) APTT (22.0-30.0) sec Sodium (137-145) mmol/L Potassium (3.5-5.1) mmol/L Chloride (98-107) mmol/L Carbon Dioxide (22-30) mmol/L Anion Gap mmol/L BUN (9-20) mg/dL Creatinine (0.66-1.25) mg/dL Est GFR (CKD-EPI)AfAm (>60 ml/min/1.73 sqM) Est GFR (CKD-EPI)NonAf (>60 ml/min/1.73 sqM) Glucose (74-99) mg/dL POC Glucose (mg/dL) (75-99) mg/dL POC Glu Gambling Box Person ID Calcium (8.4-10.2) mg/dL Total Bilirubin (0.2-1.3) mg/dL AST (17-59) U/L ALT (21-72) U/L Alkaline Phosphatase (38-126) U/L Ammonia 93 H (<30) umol/L Total Creatine Kinase 29 L (55-170) U/L CK-MB (CK-2) 0.4 (0.0-2.4) ng/mL CK-MB (CK-2) Rel Index 1.4 Troponin I <0.012 (0.000-0.034) ng/mL Total Protein (6.3-8.2) g/dL Albumin (3.5-5.0) g/dL TSH (0.465-4.680) mIU/L Free T4 (0.78-2.19) ng/dL Urine Color Urine Appearance (Clear) Urine pH (5.0-8.0) Ur Specific [place] (1.001-1.035) Urine Protein (Negative) Urine Glucose (UA) (Negative) Urine Ketones (Negative) Urine Blood (Negative) Urine Nitrite (Negative) Urine Bilirubin (Negative) Urine Urobilinogen (<2.0) mg/dL Ur Leukocyte Esterase (Negative) Urine WBC (0-5) /hpf Ur Squamous Epith Cells (0-4) /hpf Urine Mucus (None) /hpf Urine Opiates Screen (NotDetected) Ur Oxycodone Screen (NotDetected) Urine Methadone Screen (NotDetected) Ur Propoxyphene Screen (NotDetected) Ur Barbiturates Screen (NotDetected) U Tricyclic Antidepress (NotDetected) Ur Phencyclidine Scrn (NotDetected) Ur Amphetamines Screen (NotDetected) U Methamphetamines Scrn (NotDetected) U Benzodiazepines Scrn (NotDetected) Urine Cocaine Screen (NotDetected) U Marijuana (THC) Screen (NotDetected) Serum Alcohol mg/dL 08/18/18 08/18/18 08/18/18 Range/Units 09:12 09:12 09:12 WBC (3.8-10.6) k/uL RBC (4.30-5.90) m/uL Hgb (13.0-17.5) gm/dL Hct (39.0-53.0) % MCV (80.0-100.0) fL MCH (25.0-35.0) pg MCHC (31.0-37.0) g/dL RDW (11.5-15.5) % Plt Count (150-450) k/uL Neutrophils % % Lymphocytes % % Monocytes % % Eosinophils % % Basophils % % Neutrophils # (1.3-7.7) k/uL Lymphocytes # (1.0-4.8) k/uL Monocytes # (0-1.0) k/uL Eosinophils # (0-0.7) k/uL Basophils # (0-0.2) k/uL Manual Slide Review PT 12.6 H (9.0-12.0) sec INR 1.3 H (<1.2) APTT 24.6 (22.0-30.0) sec Sodium 145 (137-145) mmol/L Potassium 4.2 (3.5-5.1) mmol/L Chloride 114 H (98-107) mmol/L Carbon Dioxide 18 L (22-30) mmol/L Anion Gap 13 mmol/L BUN 12 (9-20) mg/dL Creatinine 0.78 (0.66-1.25) mg/dL Est GFR (CKD-EPI)AfAm >90 (>60 ml/min/1.73 sqM) Est GFR (CKD-EPI)NonAf >90 (>60 ml/min/1.73 sqM) Glucose 156 H (74-99) mg/dL POC Glucose (mg/dL) (75-99) mg/dL POC Glu Gambling Box Person ID Calcium 9.7 (8.4-10.2) mg/dL Total Bilirubin 1.5 H (0.2-1.3) mg/dL AST 43 (17-59) U/L ALT 26 (21-72) U/L Alkaline Phosphatase 148 H (38-126) U/L Ammonia (<30) umol/L Total Creatine Kinase (55-170) U/L CK-MB (CK-2) (0.0-2.4) ng/mL CK-MB (CK-2) Rel Index Troponin I (0.000-0.034) ng/mL Total Protein 7.6 (6.3-8.2) g/dL Albumin 3.6 (3.5-5.0) g/dL TSH 0.367 L (0.465-4.680) mIU/L Free T4 2.59 H (0.78-2.19) ng/dL Urine Color Yellow Urine Appearance Clear (Clear) Urine pH 6.5 (5.0-8.0) Ur Specific [place] 1.015 (1.001-1.035) Urine Protein Negative (Negative) Urine Glucose (UA) Negative (Negative) Urine Ketones Negative (Negative) Urine Blood Negative (Negative) Urine Nitrite Negative (Negative) Urine Bilirubin Negative (Negative) Urine Urobilinogen <2.0 (<2.0) mg/dL Ur Leukocyte Esterase Trace H (Negative) Urine WBC 9 H (0-5) /hpf Ur Squamous Epith Cells <1 (0-4) /hpf Urine Mucus Rare H (None) /hpf Urine Opiates Screen Not Detected (NotDetected) Ur Oxycodone Screen Not Detected (NotDetected) Urine Methadone Screen Not Detected (NotDetected) Ur Propoxyphene Screen Not Detected (NotDetected) Ur Barbiturates Screen Not Detected (NotDetected) U Tricyclic Antidepress Detected H (NotDetected) Ur Phencyclidine Scrn Not Detected (NotDetected) Ur Amphetamines Screen Not Detected (NotDetected) U Methamphetamines Scrn Not Detected (NotDetected) U Benzodiazepines Scrn Not Detected (NotDetected) Urine Cocaine Screen Not Detected (NotDetected) U Marijuana (THC) Screen Not Detected (NotDetected) Serum Alcohol <10 mg/dL 08/18/18 Range/Units 09:59 WBC (3.8-10.6) k/uL RBC (4.30-5.90) m/uL Hgb (13.0-17.5) gm/dL Hct (39.0-53.0) % MCV (80.0-100.0) fL MCH (25.0-35.0) pg MCHC (31.0-37.0) g/dL RDW (11.5-15.5) % Plt Count (150-450) k/uL Neutrophils % % Lymphocytes % % Monocytes % % Eosinophils % % Basophils % % Neutrophils # (1.3-7.7) k/uL Lymphocytes # (1.0-4.8) k/uL Monocytes # (0-1.0) k/uL Eosinophils # (0-0.7) k/uL Basophils # (0-0.2) k/uL Manual Slide Review PT (9.0-12.0) sec INR (<1.2) APTT (22.0-30.0) sec Sodium (137-145) mmol/L Potassium (3.5-5.1) mmol/L Chloride (98-107) mmol/L Carbon Dioxide (22-30) mmol/L Anion Gap mmol/L BUN (9-20) mg/dL Creatinine (0.66-1.25) mg/dL Est GFR (CKD-EPI)AfAm (>60 ml/min/1.73 sqM) Est GFR (CKD-EPI)NonAf (>60 ml/min/1.73 sqM) Glucose (74-99) mg/dL POC Glucose (mg/dL) 166 H (75-99) mg/dL POC Glu Gambling Box Person ID Salgat, Padmini Calcium (8.4-10.2) mg/dL Total Bilirubin (0.2-1.3) mg/dL AST (17-59) U/L ALT (21-72) U/L Alkaline Phosphatase (38-126) U/L Ammonia (<30) umol/L Total Creatine Kinase (55-170) U/L CK-MB (CK-2) (0.0-2.4) ng/mL CK-MB (CK-2) Rel Index Troponin I (0.000-0.034) ng/mL Total Protein (6.3-8.2) g/dL Albumin (3.5-5.0) g/dL TSH (0.465-4.680) mIU/L Free T4 (0.78-2.19) ng/dL Urine Color Urine Appearance (Clear) Urine pH (5.0-8.0) Ur Specific [place] (1.001-1.035) Urine Protein (Negative) Urine Glucose (UA) (Negative) Urine Ketones (Negative) Urine Blood (Negative) Urine Nitrite (Negative) Urine Bilirubin (Negative) Urine Urobilinogen (<2.0) mg/dL Ur Leukocyte Esterase (Negative) Urine WBC (0-5) /hpf Ur Squamous Epith Cells (0-4) /hpf Urine Mucus (None) /hpf Urine Opiates Screen (NotDetected) Ur Oxycodone Screen (NotDetected) Urine Methadone Screen (NotDetected) Ur Propoxyphene Screen (NotDetected) Ur Barbiturates Screen (NotDetected) U Tricyclic Antidepress (NotDetected) Ur Phencyclidine Scrn (NotDetected) Ur Amphetamines Screen (NotDetected) U Methamphetamines Scrn (NotDetected) U Benzodiazepines Scrn (NotDetected) Urine Cocaine Screen (NotDetected) U Marijuana (THC) Screen (NotDetected) Serum Alcohol mg/dL - EKG Data -: EKG Interpreted by Me EKG shows normal: sinus rhythm (Sinus tachycardia rate 114. We'll 148 QRS 84 QT since QTC 346/[address] configuration) - Radiology Data Radiology results: report reviewed (I did review the imaging and report no acute findings on either the CAT scan or the X-ray), image reviewed Critical Care Time Critical Care Time: Yes Critical Care Time: 34 minutes of critical care time which includes monitoring the EMS run and discussed with paramedics history physical labs x-rays several reevaluation of the patient. Review of old charting was available. Discussed with the beta physician admission orders and documentation of the above. Disposition Clinical Impression: Hepatic encephalopathy, Dehydration Disposition: ADMITTED IP TO THIS HOSP Condition: Stable Referrals: [facility] [Primary Care Provider] - 1-2 days
[2018-08-18 10:09] LABS: Basophils # (A) 0.1 k/uL (0-0.2); Basophils % (A) 2 %; Eosinophils # (A) 0.1 k/uL (0-0.7); Eosinophils % (A) 5 %; HCT 43.3 % (39.0-53.0); HGB 14.2 gm/dL (13.0-17.5); Lymphocytes # (A) 0.7 k/uL (1.0-4.8); Lymphocytes % (A) 32 %; MCH 30.3 pg (25.0-35.0); MCHC 32.9 g/dL (31.0-37.0); MCV 92.1 fL (80.0-100.0); Mean Platelet Volume 8.9; Monocytes # (A) 0.2 k/uL (0-1.0); Monocytes % (A) 7 %; Neutrophils # (A) 1.1 k/uL (1.3-7.7); Neutrophils % (A) 50 %; RDW 14.5 % (11.5-15.5); WBC 2.3 k/uL (3.8-10.6)
[2018-08-18 10:10] LABS: Glucose,Whole Blood 166 mg/dL (75-99)
[2018-08-18 10:25] LABS: INR 1.3 (<1.2); Partial Thromboplastin Time 24.6 sec (22.0-30.0); Prothrombin Time 12.6 sec (9.0-12.0)
[2018-08-18 10:28] LABS: Creatine Kinase 29 U/L (55-170)
[2018-08-18 10:29] LABS: Platelet Count 68 k/uL (150-450)
[2018-08-18 10:30] LABS: ALT 26 U/L (21-72); AST 43 U/L (17-59); Albumin 3.6 g/dL (3.5-5.0); Alcohol <10 mg/dL; Alkaline Phosphatase 148 U/L (38-126); Anion Gap 13 mmol/L; Blood Urea Nitrogen 12 mg/dL (9-20); Calcium 9.7 mg/dL (8.4-10.2); Carbon Dioxide 18 mmol/L (22-30); Chloride 114 mmol/L (98-107); Glucose 156 mg/dL (74-99); Potassium 4.2 mmol/L (3.5-5.1); Sodium 145 mmol/L (137-145); Total Bilirubin 1.5 mg/dL (0.2-1.3); Total Protein 7.6 g/dL (6.3-8.2)
[2018-08-18 10:32] LABS: Amphetamine Screen,Urine Not Detected (NotDetected); Barbiturate Screen,Urine Not Detected (NotDetected); Benzodiazepines Screen,Urine Not Detected (NotDetected); Cocaine Screen,Urine Not Detected (NotDetected); Methadone Screen, Urine Not Detected (NotDetected); Opiate Screen,Urine Not Detected (NotDetected); Oxycodone Screen, Urine Not Detected (NotDetected); Phencyclidine Screen,Urine Not Detected (NotDetected); Tricyclic Antidepressant,Urine Detected (NotDetected); Urn Cannabinoid Scrn Not Detected (NotDetected)
[2018-08-18 10:40] LABS: Creatine Kinase MB 0.4 ng/mL (0.0-2.4); Troponin I <0.012 ng/mL (0.000-0.034)
[2018-08-18 10:41] LABS: Appearance,Urine Clear (Clear); Bilirubin,Urine Negative (Negative); Blood,Urine Negative (Negative); Color,Urine Yellow; Glucose,Urine (UA) Negative (Negative); Ketones,Urine Negative (Negative); Leukocyte Esterase,Urine Trace (Negative); Mucus,Urine Rare /hpf; Nitrite,Urine Negative (Negative); PH, Urine 6.5 (5.0-8.0); Protein,Urine Negative (Negative); Specific Gravity,Urine 1.015 (1.001-1.035); Squamous Epithelial Cell,Urine <1 /hpf (0-4); Urobilinogen,Urine <2.0 mg/dL (<2.0); WBC,Urine 9 /hpf (0-5)
--- NOTE | 2018-08-18 11:03 | XR ---
EXAMINATION TYPE: XR chest 2V DATE OF EXAM: 08/18/2018 COMPARISON: 11/08/2017 HISTORY: Shortness of breath TECHNIQUE: Frontal and lateral views of the chest are obtained. FINDINGS: Scattered senescent parenchymal changes noted. Hyperinflation compatible with COPD. No evidence for infiltrate. No evidence for atelectasis. Heart size is stable. Mediastinal structures are stable and grossly unremarkable. No evidence for hilar prominence. Degenerative changes dorsal spine. IMPRESSION: 1. No evidence for acute pulmonary disease.
[2018-08-18 11:38] LABS: T4, Free (Free Thyroxine) 2.59 ng/dL (0.78-2.19)
--- NOTE | 2018-08-18 11:41 | CT ---
EXAMINATION TYPE: CT brain wo con DATE OF EXAM: 08/18/2018 COMPARISON: 11/08/2017 HISTORY: Altered mental status CT DLP: [address] of the brain was performed. The ventricles, basal cisterns and sulci overlying the cerebral convexities demonstrate mild enlargem ent. There is no evidence for intracranial hemorrhage or sulcal effacement. There is decreased attenuation about the periventricular white matter and deep white matter of both c erebral hemispheres, compatible with chronic small vessel ischemia. Differential diagnosis does inclu de demyelination. No mass effects are seen.No midline shift. Osseous calvarium is intact. If symptoms persist consider MRI. IMPRESSION: 1. Age related atrophic and chronic small vessel ischemic change without acute intracranial process s een at this time.
[2018-08-18] MEDS ORDERED: NALOXONE 0.4 MG/ML 1 ML VIAL IV PRN (12:07)
[2018-08-18] MEDS ORDERED: NITROGLYCERIN SL TABS 0.4 MG TAB SUBLINGUAL PRN (12:15)
[2018-08-18] MEDS: INSULIN ASPART 100 UNIT/ML 1 ML 10 ML VIAL SQ SCH ×3 (13:16→20:57)
[2018-08-18] MEDS: SODIUM CHLORIDE 0.9% 1,000 ML IV SCH ×2 (13:18→22:12)
[2018-08-18] MEDS: metFORMIN 500 MG TAB PO SCH ×2 (15:20→17:50)
[2018-08-18] MEDS: LACTULOSE 20 GM/30 ML CUP PO SCH ×3 (15:21→22:13)
[2018-08-18] MEDS: MAGNESIUM OXIDE 400 MG TAB PO SCH ×2 (15:22→20:59)
[2018-08-18 17:12] LABS: Glucose,Whole Blood 125 mg/dL (75-99)
[2018-08-18] MEDS: FERROUS SULFATE 325 MG TAB PO SCH (17:42)
[2018-08-18 20:52] LABS: Glucose,Whole Blood 120 mg/dL (75-99)
[2018-08-18] MEDS: RIFAXIMIN 200 MG TAB PO SCH (20:58)
[2018-08-18] MEDS ORDERED: QUEtiapine 200 MG TAB PO SCH (21:00)
[2018-08-19 05:07] VITALS: TEMP 97.9
[2018-08-19] MEDS ORDERED: LEVOTHYROXINE 75 MCG TAB PO SCH (06:30)
[2018-08-19] MEDS ORDERED: LEVOTHYROXINE 100 MCG TAB PO SCH (06:30)
[2018-08-19 07:02] LABS: Glucose,Whole Blood 101 mg/dL (75-99)
[2018-08-19] MEDS: LACTULOSE 20 GM/30 ML CUP PO SCH ×2 (08:18→12:33)
[2018-08-19] MEDS: metFORMIN 500 MG TAB PO SCH (08:19)
[2018-08-19] MEDS: RIFAXIMIN 200 MG TAB PO SCH (08:20)
[2018-08-19] MEDS: FERROUS SULFATE 325 MG TAB PO SCH (08:21)
[2018-08-19] MEDS: INSULIN ASPART 100 UNIT/ML 1 ML 10 ML VIAL SQ SCH ×2 (08:21→12:34)
[2018-08-19 08:40] LABS: Basophils % (A) 1 %; Eosinophils # (A) 0.1 k/uL (0-0.7); Eosinophils % (A) 5 %; HGB 12.4 gm/dL (13.0-17.5); Lymphocytes # (A) 0.9 k/uL (1.0-4.8); Lymphocytes % (A) 37 %; MCH 30.5 pg (25.0-35.0); MCHC 32.7 g/dL (31.0-37.0); MCV 93.2 fL (80.0-100.0); Mean Platelet Volume 9.2; Monocytes # (A) 0.2 k/uL (0-1.0); Monocytes % (A) 8 %; Neutrophils # (A) 1.1 k/uL (1.3-7.7); Neutrophils % (A) 45 %; RBC 4.08 m/uL (4.30-5.90); RDW 14.7 % (11.5-15.5); WBC 2.5 k/uL (3.8-10.6)
[2018-08-19 08:58] LABS: ALT 19 U/L (21-72); AST 40 U/L (17-59); Albumin 3.1 g/dL (3.5-5.0); Alkaline Phosphatase 129 U/L (38-126); Anion Gap 7 mmol/L; Blood Urea Nitrogen 14 mg/dL (9-20); Calcium 8.4 mg/dL (8.4-10.2); Carbon Dioxide 19 mmol/L (22-30); Chloride 117 mmol/L (98-107); Glucose 142 mg/dL (74-99); Potassium 4.1 mmol/L (3.5-5.1); Sodium 143 mmol/L (137-145); Total Bilirubin 1.5 mg/dL (0.2-1.3); Total Protein 6.7 g/dL (6.3-8.2)
[2018-08-19] MEDS ORDERED: LISINOPRIL 5 MG TAB PO SCH (09:00)
[2018-08-19] MEDS ORDERED: FUROSEMIDE 20 MG TAB PO SCH (09:00)
[2018-08-19] MEDS ORDERED: CHOLECALCIFEROL 1,000 UNIT TAB PO SCH (09:00)
[2018-08-19 10:14] LABS: Platelet Count 69 k/uL (150-450)
[2018-08-19 10:15] LABS: Anisocytosis (M) Present; Poikilocytosis (M) Present
[2018-08-19] MEDS: MAGNESIUM OXIDE 400 MG TAB PO SCH ×2 (11:02→15:39)
[2018-08-19 11:43] LABS: Glucose,Whole Blood 165 mg/dL (75-99)
--- NOTE | 2018-08-19 11:43 | P.HPIM ---
History of Present Illness 58-year-old gentleman came in with altered mental status found to have hyperammonemia. Patient does have history of cirrhosis and does use lactulose and ran out of rifaximin which he got it filled today. Patient ammonia has gone down from 91-70 and feeling better now wanted to go home. Patient does have lactic acidosis I ordered it because of metformin and the his lactic acid is definitely elevated patient is not a candidate for metformin because of the liver failure. Metformin will be discontinued although lactic acid again patient will be discharged later in the day as he is insisting on going home. Patient has elevated it T4 and low TSH will cut down the dose of thyroid hormone. Review of Systems REVIEW OF SYSTEMS: CONSTITUTIONAL: No fever, no malaise, no fatigue. HEENT: No recent visual problems or hearing problems. Denied any sore throat. CARDIOVASCULAR: No chest pain, orthopnea, PND, no palpitations, no syncope. PULMONARY: No shortness of breath, no cough, no hemoptysis. GASTROINTESTINAL: No diarrhea, no nausea, no vomiting, no abdominal pain. Normoactive bowel sounds. NEUROLOGICAL: No headaches, no weakness, no numbness. HEMATOLOGICAL: Denies any bleeding or petechiae. GENITOURINARY: Denies any burning micturition, frequency, or urgency. MUSCULOSKELETAL/RHEUMATOLOGICAL: Denies any joint pain, swelling, or any muscle pain. ENDOCRINE: Denies any polyuria or polydipsia. The rest of the 14-point review of systems is negative. Past Medical History Past Medical History: COPD, CVA/TIA, Diabetes Mellitus, Hearing Disorder / Deafness, Hyperlipidemia, Hypertension, Liver Disease, Thyroid Disorder Additional Past Medical History / Comment(s): Pt recently admitted to [facility] on 08/05/18 with acute hepatic encephalopathy/increased ammonia levels. Other hx: Alcoholism, alcoholic liver cirrhosis, history of hepatic encephalopathy, portal hypertension and esophageal varices and portal hypertensive gastropathy, significant other states pt has not drank alcohol since March 2018, CVA, kidney stones, hypothyroidism, L ear deafness. 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 Medications and Allergies Home Medications Medication Instructions Recorded Confirmed Type metFORMIN HCL [Glucophage] 500 mg PO TID 02/24/17 08/18/18 History Magnesium Oxide [Mag-Ox] 400 mg PO TID #90 tab 02/27/17 08/18/18 Rx Nitroglycerin Sl Tabs [Nitrostat] 0.4 mg SUBLINGUAL Q5M PRN 04/05/17 08/18/18 History Folic Acid 1 mg PO DAILY@1200 #30 tab 04/12/17 08/18/18 Rx Levothyroxine Sodium [Synthroid] 175 mcg PO DAILY 11/08/17 08/18/18 History Furosemide [Lasix] 20 mg PO DAILY 08/05/18 08/18/18 History Lactulose [Cephulac] 30 gm PO QID 08/05/18 08/18/18 History Lisinopril [Prinivil] 5 mg PO DAILY 08/05/18 08/18/18 History QUEtiapine FUMARATE [SEROquel] 200 mg PO HS 08/05/18 08/18/18 History Cholecalciferol [Vitamin D3] 5,000 unit PO DAILY 08/18/18 08/18/18 History Ferrous Sulfate [Feosol] 325 mg PO BID 08/18/18 08/18/18 History Rifaximin [Xifaxan] 200 mg PO BID 08/18/18 08/18/18 History Allergies Allergy/AdvReac Type Severity Reaction Status Date / Time Penicillins Allergy Unknown Verified 08/18/18 09:35 Childhood Physical Exam Vitals: Vital Signs Temp Pulse Pulse Resp BP BP BP 08/19/18 06:55 08/19/18 05:05 97.9 F 90 17 119/65 08/18/18 21:56 98.5 F 89 14 160/70 08/18/18 13:14 97.2 F L 87 17 151/67 08/18/18 12:42 97.9 F 93 16 150/66 Pulse Ox 09/21/18 06:55 96 08/19/18 05:05 96 08/18/18 21:56 95 08/18/18 13:14 98 08/18/18 12:42 97 Intake and Output 08/18/18 08/19/18 08/19/18 22:59 06:59 14:59 Intake Total 60 600 Output Total 400 Balance -340 600 Intake: Intake, IV Titration 480 Amount Sodium Chloride 0.9% 1, 480 000 ml @ 80 mls/hr IV . [id number] Rx#:[id number] Oral 60 120 Output: Stool 400 Other: Voiding Method Bedside Commode Bedside Commode Bedside Commode # Voids 1 # Bowel Movements 1 Weight 104.3 kg PHYSICAL EXAMINATION: GENERAL: The patient is alert and oriented x3, not in any acute distress. Well developed, well nourished. HEENT: Pupils are round and equally reacting to light. EOMI. No scleral icterus. No conjunctival pallor. Normocephalic, atraumatic. No pharyngeal erythema. No thyromegaly. CARDIOVASCULAR: S1 and S2 present. No murmurs, rubs, or gallops. PULMONARY: Chest is clear to auscultation, no wheezing or crackles. ABDOMEN: Soft, nontender, nondistended, normoactive bowel sounds. No palpable organomegaly. MUSCULOSKELETAL: No joint swelling or deformity. EXTREMITIES: No cyanosis, clubbing, or pedal edema. NEUROLOGICAL: Gross neurological examination did not reveal any focal deficits. SKIN: No rashes. Results CBC & Chem 7: 08/19/18 08:23 08/19/18 08:23 Labs: Abnormal Lab Results - Last 24 Hours (Table) 08/18/18 08/18/18 08/18/18 Range/Units 09:12 17:11 20:32 WBC (3.8-10.6) k/uL RBC (4.30-5.90) m/uL Hgb (13.0-17.5) gm/dL Hct (39.0-53.0) % Plt Count (150-450) k/uL Neutrophils # (1.3-7.7) k/uL Lymphocytes # (1.0-4.8) k/uL Chloride (98-107) mmol/L Carbon Dioxide (22-30) mmol/L Glucose (74-99) mg/dL POC Glucose (mg/dL) 125 H 120 H (75-99) mg/dL Plasma Lactic Acid Iker (0.7-2.0) mmol/L Total Bilirubin (0.2-1.3) mg/dL ALT (21-72) U/L Alkaline Phosphatase (38-126) U/L Ammonia (<30) umol/L Albumin (3.5-5.0) g/dL Free T4 2.59 H (0.78-2.19) ng/dL 08/19/18 08/19/18 08/19/18 Range/Units 06:57 08:23 08:23 WBC 2.5 L (3.8-10.6) k/uL RBC 4.08 L (4.30-5.90) m/uL Hgb 12.4 L (13.0-17.5) gm/dL Hct 38.0 L (39.0-53.0) % Plt Count 69 L (150-450) k/uL Neutrophils # 1.1 L (1.3-7.7) k/uL Lymphocytes # 0.9 L (1.0-4.8) k/uL Chloride 117 H (98-107) mmol/L Carbon Dioxide 19 L (22-30) mmol/L Glucose 142 H (74-99) mg/dL POC Glucose (mg/dL) 101 H (75-99) mg/dL Plasma Lactic Acid Iker (0.7-2.0) mmol/L Total Bilirubin 1.5 H (0.2-1.3) mg/dL ALT 19 L (21-72) U/L Alkaline Phosphatase 129 H (38-126) U/L Ammonia (<30) umol/L Albumin 3.1 L (3.5-5.0) g/dL Free T4 (0.78-2.19) ng/dL 08/19/18 08/19/18 Range/Units 08:23 08:23 WBC (3.8-10.6) k/uL RBC (4.30-5.90) m/uL Hgb (13.0-17.5) gm/dL Hct (39.0-53.0) % Plt Count (150-450) k/uL Neutrophils # (1.3-7.7) k/uL Lymphocytes # (1.0-4.8) k/uL Chloride (98-107) mmol/L Carbon Dioxide (22-30) mmol/L Glucose (74-99) mg/dL POC Glucose (mg/dL) (75-99) mg/dL Plasma Lactic Acid Iker 2.8 H* (0.7-2.0) mmol/L Total Bilirubin (0.2-1.3) mg/dL ALT (21-72) U/L Alkaline Phosphatase (38-126) U/L Ammonia 76 H (<30) umol/L Albumin (3.5-5.0) g/dL Free T4 (0.78-2.19) ng/dL Thrombosis Risk Factor Assmnt - Choose All That Apply Any of the Below Risk Factors Present?: Yes Each Factor Represents 1 point: Abnormal pulmonary function (COPD), Age 41-60 years, Obesity (BMI >25) Other Risk Factors: No Other congenital or acquired thrombophilia - If yes, enter type in comment: No Thrombosis Risk Factor Assessment Total Risk Factor Score: 3 Thrombosis Risk Factor Assessment Level: Moderate Risk Assessment and Plan Plan: -Altered mental status secondary to hepatic encephalopathy: Improved ammonia level patient will be discharged on lactulose and will continue his is a pack Kerrie and. -Anion gap metabolic acidosis as well as non-anion gap metabolic acidosis anion gap metabolic acidosis secondary to lactic acidosis which is again secondary to metformin which will be discontinued as since patient wanted to go home as repeat ammonia level and lactic acid level need to be obtained on Wednesday. Patient will be discharged on . -Cirrhosis: Probable alcoholic cirrhosis dietary counseling was provided will get a naphthalene operator helper to evaluate the patient patient since patient is diabetic as well as cirrhotic they're not many foods that he can tolerate. -Type 2 diabetes mellitus: Management as mentioned about his continue metformin -hyperlipidemia -Hypothyroidism will cut down the dose of levothyroxine.
[2018-08-19] MEDS ORDERED: FOLIC ACID 1 MG TAB PO SCH (12:00)
[2018-08-19] MEDS: SODIUM CHLORIDE 0.9% 1,000 ML IV SCH (12:34)
[2018-08-19 13:03] VITALS: BMI 31.1
--- NOTE | 2018-08-19 14:18 | P.DS ---
Providers Date of admission: 08/18/18 12:17 Attending physician: Xiomara Langston Primary care physician: [facility] Course: Will be discharged today patient the did receive dietary counseling I believe lactic acidosis is secondary to metformin 8 is expected to improve in next couple days. Patient is not hypovolemic apparently continues to drink counseling regarding alcoholism was provided. Patient will be referred to Dr. Lucy Gonzales Patient Condition at Discharge: Stable Plan - Discharge Summary Discharge Rx Participant: No New Discharge Prescriptions: New Levothyroxine Sodium 150 mcg PO DAILY #30 tablet sitaGLIPtin PHOSPHATE [Januvia] 50 mg PO DAILY #30 tab Continue Magnesium Oxide [Mag-Ox] 400 mg PO TID #90 tab Nitroglycerin Sl Tabs [Nitrostat] 0.4 mg SUBLINGUAL Q5M PRN PRN Reason: Chest Pain Folic Acid 1 mg PO DAILY@1200 #30 tab QUEtiapine FUMARATE [SEROquel] 200 mg PO HS Lisinopril [Prinivil] 5 mg PO DAILY Furosemide [Lasix] 20 mg PO DAILY Lactulose [Cephulac] 30 gm PO QID Cholecalciferol [Vitamin D3] 5,000 unit PO DAILY Rifaximin [Xifaxan] 200 mg PO BID Ferrous Sulfate [Iron (65 MG Elemental)] 325 mg PO BID Discontinued metFORMIN HCL [Glucophage] 500 mg PO TID Levothyroxine Sodium [Synthroid] 175 mcg PO DAILY Discharge Medication List Magnesium Oxide [Mag-Ox] 400 mg PO TID #90 tab 02/27/17 [Rx] Nitroglycerin Sl Tabs [Nitrostat] 0.4 mg SUBLINGUAL Q5M PRN 04/05/17 [History] Folic Acid 1 mg PO DAILY@1200 #30 tab 04/12/17 [Rx] Furosemide [Lasix] 20 mg PO DAILY 08/05/18 [History] Lactulose [Cephulac] 30 gm PO QID 08/05/18 [History] Lisinopril [Prinivil] 5 mg PO DAILY 08/05/18 [History] QUEtiapine FUMARATE [SEROquel] 200 mg PO HS 08/05/18 [History] Cholecalciferol [Vitamin D3] 5,000 unit PO DAILY 08/18/18 [History] Ferrous Sulfate [Iron (65 MG Elemental)] 325 mg PO BID 08/18/18 [History] Rifaximin [Xifaxan] 200 mg PO BID 08/18/18 [History] Levothyroxine Sodium 150 mcg PO DAILY #30 tablet 08/19/18 [Rx] sitaGLIPtin PHOSPHATE [Januvia] 50 mg PO DAILY #30 tab 08/19/18 [Rx] Follow up Appointment(s)/Referral(s): Lucy Gonzales MD [STAFF PHYSICIAN] - 3 Days [facility] [Primary Care Provider] - 1-2 days Patient Instructions/Handouts: Levothyroxine (By mouth), Sitagliptin (By mouth) , Hepatic Encephalopathy (DC) Discharge Disposition: HOME SELF-CARE
[2018-08-19 15:00] VITALS: BP 170/74; PULSE 92; RESP 16
== END 2018-08-19 16:58 | disposition home or self-care (01) ==
LOC: EC 09:19 → INTOOBSV 12:17 → 5MS5E 12:17 → UNDODISIN 08-19 16:10
PROVIDERS: ADMIT Internal Medicine; ATTEND Internal Medicine
DX: K70.40 Alcoholic hepatic failure without coma (principal); E87.2 Acidosis; K76.6 Portal hypertension; T38.3X5A Adverse effect of insulin and oral hypoglycemic [antidiabetic] drugs, initial encounter; K70.30 Alcoholic cirrhosis of liver without ascites; E86.0 Dehydration; E11.9 Type 2 diabetes mellitus without complications; F10.20 Alcohol dependence, uncomplicated; K31.89 Other diseases of stomach and duodenum; E78.5 Hyperlipidemia, unspecified; J44.9 Chronic obstructive pulmonary disease, unspecified; I10 Essential (primary) hypertension; E03.9 Hypothyroidism, unspecified; F31.9 Bipolar disorder, unspecified; H91.92 Unspecified hearing loss, left ear; E66.9 Obesity, unspecified; Z68.31 Body mass index [BMI] 31.0-31.9, adult; Z79.84 Long term (current) use of oral hypoglycemic drugs; Z79.890 Hormone replacement therapy; Z79.899 Other long term (current) drug therapy; Z88.0 Allergy status to penicillin; Z96.653 Presence of artificial knee joint, bilateral; Z86.73 Personal history of transient ischemic attack (TIA), and cerebral infarction without residual deficits; Z87.442 Personal history of urinary calculi; Z87.891 Personal history of nicotine dependence; Z90.5 Acquired absence of kidney; Z80.8 Family history of malignant neoplasm of other organs or systems
CPT/HCPCS: 96361 ×3; 96360; 99291; 36415; 94760; 93005; 84439; 80053 ×2; 84443; 82140 ×2; 82550; 82553; 83605; 84484; 85025 ×2; 85610; 85730; 81001; 80306; 71046; 70450; G0378 ×2; G0480; 80320

== ENCOUNTER → 2018-08-22 | Outpatient (CLI) | payer OTHER ==
[2018-08-22 07:47] LABS: HCT 36.8 % (39.0-53.0); HGB 12.3 gm/dL (13.0-17.5); MCH 31.2 pg (25.0-35.0); MCHC 33.5 g/dL (31.0-37.0); MCV 93.2 fL (80.0-100.0); Mean Platelet Volume 8.3; RBC 3.95 m/uL (4.30-5.90); RDW 14.7 % (11.5-15.5); WBC 2.5 k/uL (3.8-10.6)
[2018-08-22 07:49] LABS: Platelet Count 73 k/uL (150-450)
[2018-08-22 08:02] LABS: Lactic Acid, Venous 1.3 mmol/L (0.7-2.0)
[2018-08-22 08:31] LABS: ALT 19 U/L (21-72); AST 50 U/L (17-59); Albumin 3.2 g/dL (3.5-5.0); Alkaline Phosphatase 128 U/L (38-126); Anion Gap 5 mmol/L; Blood Urea Nitrogen 10 mg/dL (9-20); Calcium 8.9 mg/dL (8.4-10.2); Carbon Dioxide 23 mmol/L (22-30); Chloride 110 mmol/L (98-107); Glucose 143 mg/dL (74-99); Sodium 138 mmol/L (137-145); Total Bilirubin 1.4 mg/dL (0.2-1.3); Total Protein 6.8 g/dL (6.3-8.2)
[2018-08-22 09:17] LABS: Potassium 4.4 mmol/L (3.5-5.1)
== END ==
LOC: LABWHC1 07:15
PROVIDERS: ATTEND Internal Medicine
DX: K72.90 Hepatic failure, unspecified without coma (principal)
CPT/HCPCS: 36415; 80053; 82140; 83605; 85027

== ENCOUNTER → 2018-09-20 | Outpatient (CLI) | payer OTHER ==
[2018-09-20 08:20] LABS: ALT 32 U/L (21-72); AST 47 U/L (17-59); Albumin 3.4 g/dL (3.5-5.0); Alkaline Phosphatase 132 U/L (38-126); Anion Gap 6 mmol/L; Blood Urea Nitrogen 14 mg/dL (9-20); Calcium 9.3 mg/dL (8.4-10.2); Carbon Dioxide 26 mmol/L (22-30); Chloride 108 mmol/L (98-107); Cholesterol 186 mg/dL (<200); Glucose 216 mg/dL (74-99); HDL Cholesterol 61 mg/dL (40-60); LDL Cholesterol,Calculated 98 mg/dL (0-99); Sodium 140 mmol/L (137-145); Total Bilirubin 1.5 mg/dL (0.2-1.3); Total Protein 7.2 g/dL (6.3-8.2); Triglycerides 135 mg/dL (<150)
[2018-09-20 08:23] LABS: Basophils % (A) 0 %; Eosinophils # (A) 0.1 k/uL (0-0.7); Eosinophils % (A) 4 %; HCT 40.3 % (39.0-53.0); HGB 13.3 gm/dL (13.0-17.5); Lymphocytes # (A) 0.8 k/uL (1.0-4.8); Lymphocytes % (A) 29 %; MCH 30.7 pg (25.0-35.0); MCHC 32.9 g/dL (31.0-37.0); MCV 93.2 fL (80.0-100.0); Monocytes # (A) 0.2 k/uL (0-1.0); Monocytes % (A) 8 %; Neutrophils # (A) 1.4 k/uL (1.3-7.7); Neutrophils % (A) 55 %; RBC 4.32 m/uL (4.30-5.90); RDW 13.8 % (11.5-15.5); WBC 2.6 k/uL (3.8-10.6)
[2018-09-20 08:37] LABS: T4, Free (Free Thyroxine) 1.14 ng/dL (0.78-2.19)
[2018-09-20 08:49] LABS: Platelet Count 84 k/uL (150-450)
--- NOTE | 2018-09-20 11:26 | US ---
EXAMINATION TYPE: US liver DATE OF EXAM: 09/20/2018 COMPARISON: CT & US CLINICAL HISTORY: K70.31 Alcohol cirrhosis. Alcoholic cirrhosis, TIPS placed in 2017 EXAM MEASUREMENTS: Liver Length: 17.0 cm Gallbladder Wall: 0.3 cm CBD: 0.5 cm Pancreas: Varicosities at pancreatic head as seen on previous Liver: Heterogeneous, lobulated contour, TIPS patent and PV flow hepatopedal Gallbladder: Multiple gallstones as seen on previous CT Evidence for sonographic Casanova's sign: No CBD: wnl Right Kidney: Surgically absent IMPRESSION: 1. Patency of the TIPS and hepatopedal flow within the portal vein. 2. Hepatic cirrhosis. 3. Cholelithiasis with no current sonographic evidence of acute cholecystitis.
[2018-09-20 16:20] LABS: Vitamin D 25 Hydroxy 28.8 ng/mL (30.0-100.0)
== END | disposition home or self-care (01) ==
LOC: RADUSWWP 07:15
DX: K74.60 Unspecified cirrhosis of liver (principal); E11.65 Type 2 diabetes mellitus with hyperglycemia; E03.9 Hypothyroidism, unspecified; E55.9 Vitamin D deficiency, unspecified
CPT/HCPCS: 76705; 80053; 80061; 82043; 82105; 82140; 82306; 82570; 84439; 84443; 85025

== ENCOUNTER → 2018-11-15 | Outpatient (CLI) | payer OTHER ==
[2018-11-15 06:50] LABS: Basophils % (A) 0 %; Eosinophils % (A) 0 %; HCT 36.4 % (39.0-53.0); HGB 11.7 gm/dL (13.0-17.5); Lymphocytes # (A) 0.4 k/uL (1.0-4.8); Lymphocytes % (A) 6 %; MCH 30.8 pg (25.0-35.0); MCHC 32.3 g/dL (31.0-37.0); MCV 95.4 fL (80.0-100.0); Mean Platelet Volume 9.3; Monocytes # (A) 0.2 k/uL (0-1.0); Monocytes % (A) 4 %; Neutrophils # (A) 5.4 k/uL (1.3-7.7); Neutrophils % (A) 89 %; RBC 3.81 m/uL (4.30-5.90); RDW 14.4 % (11.5-15.5); WBC 6.1 k/uL (3.8-10.6)
[2018-11-15 07:14] LABS: Platelet Count 84 k/uL (150-450)
[2018-11-15 11:52] LABS: Albumin 3.6 g/dL (3.80-4.90); Albumin/Globulin Ratio 1.13 (1.20-2.10); Anion Gap 7.5 mmol/L (4.00-12.00); Calcium 8.8 mg/dL (8.7-10.3); Carbon Dioxide 22.5 mmol/L (21.6-31.8); Globulin 3.2 g/dL (2.1-3.7); Potassium 4.6 mmol/L (3.5-5.5); Total Protein 6.8 g/dL (6.2-8.2)
[2018-11-15 11:53] LABS: Iron Saturation 37.12 (15.00-50.00)
[2018-11-15 12:00] LABS: Vitamin D 25 Hydroxy 30.9 ng/mL (30.0-100.0)
[2018-11-15 12:34] LABS: T4, Free (Free Thyroxine) 0.9 ng/dL (0.80-1.80)
[2018-11-15 15:01] LABS: Hemoglobin A1C 7.1 % (4.0-6.0)
== END ==
LOC: LABWHC1 06:30
PROVIDERS: ATTEND Physician Assistant Medical
DX: I10 Essential (primary) hypertension (principal); E03.9 Hypothyroidism, unspecified; E11.9 Type 2 diabetes mellitus without complications; D50.9 Iron deficiency anemia, unspecified; Z12.5 Encounter for screening for malignant neoplasm of prostate
CPT/HCPCS: 84439; 80053; 82607; 82728; 82140; 83540; 83550; 83735; 84443; 85025; 82306; 83036; 36415; G0103

== ENCOUNTER → 2019-04-03 | Outpatient (CLI) | payer OTHER ==
[2019-04-03 08:35] LABS: HCT 40.9 % (39.0-53.0); HGB 13.5 gm/dL (13.0-17.5); MCH 32.1 pg (25.0-35.0); MCV 97.2 fL (80.0-100.0); Mean Platelet Volume 8.9; RBC 4.21 m/uL (4.30-5.90); RDW 15.4 % (11.5-15.5); WBC 3.7 k/uL (3.8-10.6)
[2019-04-03 12:38] LABS: Eosinophils # (M) 0.11 k/uL (0-0.7); Lymphocytes # (M) 1.22 k/uL (1.0-4.8); Monocytes # (M) 0.59 k/uL (0-1.0); Neutrophils # (M) 1.78 k/uL (1.3-7.7); Neutrophils % (M) 48 %; Nucleated Red Blood Cells 0 /100 WBC (0-0); Total Cells Counted 100
[2019-04-03 12:39] LABS: Platelet Count 99 k/uL (150-450)
[2019-04-03 16:40] LABS: Vitamin D 25 Hydroxy 40.6 ng/mL (30.0-100.0)
[2019-04-03 16:41] LABS: Albumin 3.6 g/dL (3.80-4.90); Albumin/Globulin Ratio 1.24 (1.60-3.17); Anion Gap 4.5 mmol/L (4.00-12.00); Calcium 9.6 mg/dL (8.7-10.3); Carbon Dioxide 25.5 mmol/L (21.6-31.8); Globulin 2.9 g/dL (1.6-3.3); LDL Cholesterol,Calculated 103.2 mg/dL (0.0-131.0); Magnesium 1.8 mg/dL (1.5-2.4); Potassium 4.3 mmol/L (3.5-5.5); Total Bilirubin 1.3 mg/dL (0.3-1.2); Total Protein 6.5 g/dL (6.2-8.2); VLDL Calculation 22.8 mg/dL (5.00-40.00)
== END | disposition home or self-care (01) ==
LOC: LABWHC1 07:31
PROVIDERS: ATTEND Internal Medicine
DX: E11.65 Type 2 diabetes mellitus with hyperglycemia (principal); E03.9 Hypothyroidism, unspecified; I10 Essential (primary) hypertension; E55.9 Vitamin D deficiency, unspecified; D50.9 Iron deficiency anemia, unspecified; K74.60 Unspecified cirrhosis of liver
CPT/HCPCS: 36415; 80053; 80061; 82043; 82140; 82306; 82570; 82607; 83036; 83735; 84439; 84443; 85025

== ENCOUNTER → 2019-07-27 | Outpatient (CLI) | payer OTHER ==
[2019-07-27 20:35] LABS: Hemoglobin A1C 5.7 % (4.0-6.0)
== END | disposition home or self-care (01) ==
LOC: LABWHC1 09:26
PROVIDERS: ATTEND Internal Medicine
DX: E11.65 Type 2 diabetes mellitus with hyperglycemia (principal)
CPT/HCPCS: 36415; 83036

== ENCOUNTER → 2019-08-24 | Outpatient (CLI) | payer OTHER ==
[2019-08-24 09:13] LABS: Anisocytosis Slight; HCT 38.4 % (39.0-53.0); MCH 31.7 pg (25.0-35.0); MCHC 33.8 g/dL (31.0-37.0); MCV 93.8 fL (80.0-100.0); Mean Platelet Volume 9.1; RBC 4.09 m/uL (4.30-5.90); RDW 16.5 % (11.5-15.5); WBC 3.5 k/uL (3.8-10.6)
[2019-08-24 09:35] LABS: Platelet Count 69 k/uL (150-450)
[2019-08-24 17:20] LABS: African American GFR (CKD) 93.7 (60.0-200.0); Albumin 3.5 g/dL (3.80-4.90); Albumin/Globulin Ratio 1.35 (1.60-3.17); Anion Gap 10.3 mmol/L (4.00-12.00); Calcium 8.7 mg/dL (8.7-10.3); Carbon Dioxide 19.7 mmol/L (21.6-31.8); Globulin 2.6 g/dL (1.6-3.3); Potassium 4.1 mmol/L (3.5-5.5); Total Bilirubin 1.5 mg/dL (0.2-1.2); Total Protein 6.1 g/dL (6.2-8.2)
== END | disposition home or self-care (01) ==
LOC: LABWHC1 08:41
PROVIDERS: ATTEND Physician Assistant
DX: K70.31 Alcoholic cirrhosis of liver with ascites (principal)
CPT/HCPCS: 36415; 80053; 82105; 82140; 85027

== ENCOUNTER → 2019-08-24 | Outpatient (CLI) | payer OTHER ==
--- NOTE | 2019-08-24 11:58 | US ---
EXAMINATION TYPE: US liver DATE OF EXAM: 08/24/2019 COMPARISON: US & CT 2018 CLINICAL HISTORY: K70.31 Alcoholic cirrhosis w/ascites. Alcoholic cirrhosis, TIPS procedure 2017, His tory of right nephrectomy EXAM MEASUREMENTS: Liver Length: 16.4 cm Gallbladder Wall: 0.3 cm CBD: 0.5 cm Right Kidney: surgically absent Pancreas: varicosities at pancreatic head as seen on previous, limited by overlying midline bowel ga s Liver: Cirrhotic morphology, heterogeneous, lobulated contour, TIPS patent, portal vein patent with hepatopedal flow Gallbladder: multiple gallstones as seen on previous Evidence for sonographic Casanova's sign: no CBD: wnl Right Kidney: surgically absent IMPRESSION: 1. Hepatopedal flow is maintained in the portal vein and the TIPS appears patent. 2. Redemonstration of peripancreatic varicosities, cirrhotic morphology of the liver, and cholelithia sis.
== END | disposition home or self-care (01) ==
LOC: RADUSWWP 08:58
PROVIDERS: ATTEND Internal Medicine Gastroenterology
DX: K74.60 Unspecified cirrhosis of liver (principal); K80.20 Calculus of gallbladder without cholecystitis without obstruction; I86.8 Varicose veins of other specified sites
CPT/HCPCS: 76705

== ENCOUNTER 2019-09-14 14:41 | Inpatient (IN) | payer OTHER ==
[2019-09-14] MEDS ORDERED: LACTULOSE 20 GM/30 ML CUP PO STA (15:09)
[2019-09-14] MEDS ORDERED: SODIUM CHLORIDE 0.9% 1,000 ML IV ONE ×2 (15:09)
[2019-09-14 15:22] LABS: Basophils % (A) 1 %; Eosinophils # (A) 0.1 k/uL (0-0.7); Eosinophils % (A) 2 %; HCT 43.4 % (39.0-53.0); HGB 13.5 gm/dL (13.0-17.5); Lymphocytes # (A) 0.9 k/uL (1.0-4.8); Lymphocytes % (A) 22 %; MCH 30.6 pg (25.0-35.0); MCHC 31.2 g/dL (31.0-37.0); MCV 98.1 fL (80.0-100.0); Mean Platelet Volume 8.3; Monocytes # (A) 0.2 k/uL (0-1.0); Monocytes % (A) 6 %; Neutrophils # (A) 2.7 k/uL (1.3-7.7); Neutrophils % (A) 66 %; RBC 4.43 m/uL (4.30-5.90); RDW 14.9 % (11.5-15.5); WBC 4.1 k/uL (3.8-10.6)
[2019-09-14 15:30] LABS: ALT 35 U/L (21-72); AST 58 U/L (17-59); African American GFR (CKD) 88 (>60 ml/min/1.73 sqM); Albumin 3.5 g/dL (3.5-5.0); Alcohol <10 mg/dL; Alkaline Phosphatase 99 U/L (38-126); Anion Gap 7 mmol/L; Blood Urea Nitrogen 17 mg/dL (9-20); Calcium 9.8 mg/dL (8.4-10.2); Carbon Dioxide 22 mmol/L (22-30); Chloride 113 mmol/L (98-107); Glucose 109 mg/dL (74-99); Potassium 4.5 mmol/L (3.5-5.1); Sodium 142 mmol/L (137-145); Total Bilirubin 1.7 mg/dL (0.2-1.3); Total Protein 7.3 g/dL (6.3-8.2)
[2019-09-14 15:34] LABS: INR 1.3 (<1.2); Partial Thromboplastin Time 31.6 sec (22.0-30.0); Prothrombin Time 13.4 sec (9.0-12.0)
--- NOTE | 2019-09-14 15:46 | CT ---
EXAMINATION TYPE: CT brain wo con DATE OF EXAM: 09/14/2019 COMPARISON: 08/18/2018 INDICATION: Altered mental status DLP: 1147.4 mGycm, Automated exposure control for dose reduction was used. CONTRAST: None CT of the brain is performed utilizing 3 mm thick sections through the posterior fossa and 3 mm thick sections through the remaining calvarium. Study is performed within 24 hours of arrival to the hosp [facility]. No abnormal hyperdensity is present to suggest an acute intracranial hemorrhage. No mass lesion is evident. Small lacunar infarct within the right basal ganglia may be present. This may be an interval change f rom 2018. This is of indeterminate age. No additional suspicious areas of ischemic change or infarcts are evident. Ventricles and sulci are appropriate for the patient age. Paranasal sinuses and mastoid air cells within the [id number] are clear. IMPRESSIONS: 1. Small lacunar infarct right basal ganglion of indeterminate age. This is an interval change from 2018.
--- NOTE | 2019-09-14 15:47 | XR ---
EXAMINATION TYPE: XR chest 2V DATE OF EXAM: 09/14/2019 COMPARISON: 08/18/2018 INDICATION: Altered mental status TECHNIQUE: Frontal and lateral views of the chest are obtained. FINDINGS: The heart size is normal. The pulmonary vasculature is normal. The lungs are clear. IMPRESSION: 1. No acute pulmonary process.
--- NOTE | 2019-09-14 15:49 | ED ---
Altered Mental Status HPI - General Chief Complaint: Altered Mental Status Stated Complaint: Abnormal labs Time Seen by Provider: 09/14/19 15:01 Source: EMS, RN notes reviewed, old records reviewed Mode of arrival: EMS Limitations: altered mental status - History of Present Illness Initial Comments: 59-year-old male presents emergency room today after being evaluated by [facility]. Patient had [facility] to come check on him due to see they found the Patient was altered. According to [facility] and EMS, he hasn't taking his meds for the past week. Patient is unable to state date or why he is here. He denies any pain at this time. He reports that he has a history of cirrhosis, and has a history of a TIPS procedure in the past. Patient has been reportedly sober for the past 3 years. Patient reports that he has not been taking his lactulose other medications for over a week. Patient's reports that they're currently moving. They started shows significant swelling is her extremities and was resting at home last night trying to keep his feet up and elevated and he started to have some changes in mental status last night. - Related Data Home Medications Medication Instructions Recorded Confirmed Nitroglycerin Sl Tabs [Nitrostat] 0.4 mg SUBLINGUAL Q5M PRN 04/05/17 08/18/18 Furosemide [Lasix] 20 mg PO DAILY 08/05/18 08/18/18 Lactulose [Cephulac] 30 gm PO QID 08/05/18 08/18/18 Lisinopril [Prinivil] 5 mg PO DAILY 08/05/18 08/18/18 QUEtiapine FUMARATE [SEROquel] 200 mg PO HS 08/05/18 08/18/18 Cholecalciferol [Vitamin D3 (25 5,000 unit PO DAILY 08/18/18 08/18/18 Mcg = 1000 Iu)] Ferrous Sulfate [Iron (65 MG 325 mg PO BID 08/18/18 08/18/18 Elemental)] Rifaximin [Xifaxan] 200 mg PO BID 08/18/18 08/18/18 Previous Rx's Medication Instructions Recorded Magnesium Oxide [Mag-Ox] 400 mg PO TID #90 tab 02/27/17 Folic Acid 1 mg PO DAILY@1200 #30 tab 04/12/17 Levothyroxine Sodium 150 mcg PO DAILY #30 tablet 08/19/18 sitaGLIPtin PHOSPHATE [Januvia] 50 mg PO DAILY #30 tab 08/19/18 Allergies Allergy/AdvReac Type Severity Reaction Status Date / Time Penicillins Allergy Unknown Verified 09/14/19 18:00 Childhood Review of Systems ROS Statement: Those systems with pertinent positive or pertinent negative responses have been documented in the HPI. ROS Other: All systems not noted in ROS Statement are negative. Past Medical History Past Medical History: COPD, CVA/TIA, Diabetes Mellitus, Hearing Disorder / Deafness, Hyperlipidemia, Hypertension, Liver Disease, Thyroid Disorder Additional Past Medical History / Comment(s): Pt recently admitted to [facility] on 08/05/18 with acute hepatic encephalopathy/increased ammonia levels. Other hx: Alcoholism, alcoholic liver cirrhosis, history of hepatic encephalopathy, portal hypertension and esophageal varices and portal hypertensive gastropathy, significant other states pt has not drank alcohol since March 2018, CVA, kidney stones, hypothyroidism, L ear deafness. History of Any Multi-Drug Resistant Organisms: None Reported Past Surgical History: Joint Replacement Additional Past Surgical History / Comment(s): Right nephrectomy as an for nonfunctioning kidney, bilateral total knee surgery, liver drain or stents done at [facility], EGD Past Anesthesia/Blood Transfusion Reactions: No Reported Reaction Additional Past Anesthesia/Blood Transfusion Reaction / Comment(s): blood trandfusion - no known reaction Past Psychological History: Bipolar, Depression Smoking Status: Former smoker - Past Family History Mother Family Medical History: Cancer Additional Family Medical History / Comment(s): skin cancer Father History Unknown: Yes Additional Family Medical History / Comment(s): pt was raised buy his step dad. General Exam - General Exam Comments Initial Comments: [id number] male. Unable to state the time or date. Does know location and know name. Limitations: altered mental status General appearance: alert, in no apparent distress Head exam: Present: atraumatic, normocephalic, normal inspection Eye exam: Present: normal appearance, PERRL, EOMI. Absent: scleral icterus, conjunctival injection, periorbital swelling ENT exam: Present: normal exam, mucous membranes moist Neck exam: Present: normal inspection. Absent: tenderness, meningismus, lymphadenopathy Respiratory exam: Present: normal lung sounds bilaterally Cardiovascular Exam: Present: regular rate, normal rhythm, normal heart sounds. Absent: systolic murmur, diastolic murmur, rubs, gallop, clicks GI/Abdominal exam: Present: soft, normal bowel sounds. Absent: distended, tenderness, guarding, rebound, rigid Extremities exam: Present: normal inspection, full ROM, normal capillary refill. Absent: tenderness, pedal edema, joint swelling, calf tenderness Back exam: Present: normal inspection Neurological exam: Present: alert Expanded Patient oriented to: Present: person, place Speech: Present: expressive aphasia Cranial nerves: EOM's Intact: Normal, Facial Sensation: Normal Cerebellar function: Finger to Nose: Abnormal Right (unable to preform) Sensory exam: Upper Extremity Light Touch: Normal, Lower Extremity Light Touch: Normal Motor strength exam: RUE: 5, LUE: 5, RLE: 5, LLE: 5 Eye Response: (4) open spontaneously Motor Response: (6) obeys commands (obeys some commands) Verbal Response: (4) confused conversation Keyur Total: 14 Psychiatric exam: Present: normal affect, normal mood Skin exam: Present: warm, dry, intact, normal color. Absent: rash Course Vital Signs 09/14/19 09/14/19 09/14/19 14:45 15:22 16:37 Temperature 98.0 F Pulse Rate 94 87 77 Respiratory 18 18 18 Rate Blood Pressure 176/82 159/93 172/65 O2 Sat by Pulse 99 97 97 Oximetry 09/14/19 17:53 Temperature 99.4 F Pulse Rate 86 Respiratory 18 Rate Blood Pressure 187/70 O2 Sat by Pulse 99 Oximetry Medical Decision Making - Medical Decision Making 59-year-old male presents emergency department today for altered mental status. Was evaluated by [facility] today and reportedly has not been taking his medications for the past week. He has had a history of cirrhosis and liver failure. He is supposed to take daily lactulose. They're concerned this was his previous exacerbation of elevated ammonia levels. This time patient's ammonia levels within normal limits. He does have altered mental status GCS of 14 with confused conversation and some aphasia noted. Patient CT without contrast was completed for concern for initial falls he is unable to give a complete history. There is evidence of old lacunar infarct. Family reports that his symptoms started over 24 hours ago. I discussed case with Dr. Vanessa. We will do CT CAZARES Patient. He was given aspirin. Patient continues to have some confused conversation, and ability to follow commands with finger to nose. Patient CT angios shows some carotid artery bifurcations with no evidence of hemodynamic stenosis. Negative CT angiogram of the brain. Patient has been advised patient will be admitted for further evaluation for AMS, lacunar infarct. - Lab Data Result diagrams: 09/14/19 14:54 09/14/19 14:54 Lab Results 09/14/19 09/14/19 09/14/19 Range/Units 14:54 14:54 14:54 WBC 4.1 (3.8-10.6) k/uL RBC 4.43 (4.30-5.90) m/uL Hgb 13.5 (13.0-17.5) gm/dL Hct 43.4 (39.0-53.0) % MCV 98.1 (80.0-100.0) fL MCH 30.6 (25.0-35.0) pg MCHC 31.2 (31.0-37.0) g/dL RDW 14.9 (11.5-15.5) % Plt Count 69 L (150-450) k/uL Neutrophils % 66 % Lymphocytes % 22 % Monocytes % 6 % Eosinophils % 2 % Basophils % 1 % Neutrophils # 2.7 (1.3-7.7) k/uL Lymphocytes # 0.9 L (1.0-4.8) k/uL Monocytes # 0.2 (0-1.0) k/uL Eosinophils # 0.1 (0-0.7) k/uL Basophils # 0.0 (0-0.2) k/uL Manual Slide Review Performed PT (9.0-12.0) sec INR (<1.2) APTT (22.0-30.0) sec Sodium 142 (137-145) mmol/L Potassium 4.5 (3.5-5.1) mmol/L Chloride 113 H (98-107) mmol/L Carbon Dioxide 22 (22-30) mmol/L Anion Gap 7 mmol/L BUN 17 (9-20) mg/dL Creatinine 1.06 (0.66-1.25) mg/dL Est GFR (CKD-EPI)AfAm 88 (>60 ml/min/1.73 sqM) Est GFR (CKD-EPI)NonAf 76 (>60 ml/min/1.73 sqM) Glucose 109 H (74-99) mg/dL Calcium 9.8 (8.4-10.2) mg/dL Total Bilirubin 1.7 H (0.2-1.3) mg/dL AST 58 (17-59) U/L ALT 35 (21-72) U/L Alkaline Phosphatase 99 (38-126) U/L Ammonia 25 (<30) umol/L Troponin I (0.000-0.034) ng/mL Total Protein 7.3 (6.3-8.2) g/dL Albumin 3.5 (3.5-5.0) g/dL Serum Alcohol <10 mg/dL 09/14/19 09/14/19 Range/Units 14:54 14:54 WBC (3.8-10.6) k/uL RBC (4.30-5.90) m/uL Hgb (13.0-17.5) gm/dL Hct (39.0-53.0) % MCV (80.0-100.0) fL MCH (25.0-35.0) pg MCHC (31.0-37.0) g/dL RDW (11.5-15.5) % Plt Count (150-450) k/uL Neutrophils % % Lymphocytes % % Monocytes % % Eosinophils % % Basophils % % Neutrophils # (1.3-7.7) k/uL Lymphocytes # (1.0-4.8) k/uL Monocytes # (0-1.0) k/uL Eosinophils # (0-0.7) k/uL Basophils # (0-0.2) k/uL Manual Slide Review PT 13.4 H (9.0-12.0) sec INR 1.3 H (<1.2) APTT 31.6 H (22.0-30.0) sec Sodium (137-145) mmol/L Potassium (3.5-5.1) mmol/L Chloride (98-107) mmol/L Carbon Dioxide (22-30) mmol/L Anion Gap mmol/L BUN (9-20) mg/dL Creatinine (0.66-1.25) mg/dL Est GFR (CKD-EPI)AfAm (>60 ml/min/1.73 sqM) Est GFR (CKD-EPI)NonAf (>60 ml/min/1.73 sqM) Glucose (74-99) mg/dL Calcium (8.4-10.2) mg/dL Total Bilirubin (0.2-1.3) mg/dL AST (17-59) U/L ALT (21-72) U/L Alkaline Phosphatase (38-126) U/L Ammonia (<30) umol/L Troponin I <0.012 (0.000-0.034) ng/mL Total Protein (6.3-8.2) g/dL Albumin (3.5-5.0) g/dL Serum Alcohol mg/dL Interpretation: no acute changes - Radiology Data Radiology results: report reviewed EKG shows normal sinus rhythm normal EKG. Ventricular rate of 83 bpm. DE interval is 142 ms. QRS duration is 82 ms. QT QTC 376/441 ms. Chest x-rays negative for any acute cardiopulmonary process. CT of the brain shows a small lacunar infarct on the right basal ganglion of indeterminate age. Interval change from 2018. CT angio shows Mild plaque at the artery bifurcations with no evidence of hemodynamic stenosis. Negative CT angios of the brain. Disposition Clinical Impression: AMS (altered mental status), Basal ganglia infarction Disposition: ADMITTED IP TO THIS HOSP Is patient prescribed a controlled substance at d/c from ED?: No Referrals: [facility] [Primary Care Provider] - 1-2 days Time of Disposition: 18:01
[2019-09-14 15:55] LABS: Platelet Count 69 k/uL (150-450)
[2019-09-14] MEDS ORDERED: ASPIRIN 325 MG TAB PO STA (16:00)
--- NOTE | 2019-09-14 17:39 | CT ---
EXAMINATION TYPE: CT angio head neck DATE OF EXAM: 09/14/2019 HISTORY: Neruo Deficit. COMPARISON: CT DLP: 753 mGycm. Automated Exposure Control for Dose Reduction was Utilized. TECHNIQUE: CTA scan of the neck is performed with IV Contrast, patient injected with 65 mL of Isovue 370, axial images are obtained, coronal and sagittal reformatted images are reviewed. Three-D recons tructed images are created on an independent workstation and reviewed. FINDINGS: There is normal branching pattern of the great vessels on the aortic arch. There is bilateral arteria l flow in the subclavian arteries. There is bilateral arterial flow in the common internal and external carotid arteries. There is bilat eral arterial flow in the vertebral arteries. Right vertebral artery is larger than the left. There i s atherosclerotic plaque at the carotid artery bifurcations. There is mild plaque formation with lume n narrowing of approximately 20% at the origins of both internal carotid arteries. There is no eviden ce of hemodynamic stenosis. There is no evidence of carotid or vertebral artery aneurysm or dissectio n. There is arterial flow in the anterior middle and posterior cerebral arteries. There is arterial flow in the vertebrobasilar artery system. There is no contrast seen in the posterior communicating arter ies. There is normal contrast opacification of the venous sinuses. I see no evidence of intracranial aneurysm or neovascularity. There is no evidence of intracranial arterial stenosis. IMPRESSION: There is mild plaque at the carotid artery bifurcations with no evidence of hemodynamic stenosis. Neg ative CT angiogram of the brain.
[2019-09-14] MEDS ORDERED: LABETALOL 5 MG/ML VIAL MDV IVP PRN (17:56)
[2019-09-14] MEDS: SODIUM CHLORIDE 0.9% 1,000 ML IV SCH (18:02)
[2019-09-14] MEDS ORDERED: hydrALAZINE HCL 20 MG/ML 1 ML VIAL IVP STA (18:03)
[2019-09-14] MEDS: MAGNESIUM OXIDE 400 MG TAB PO SCH (21:41)
[2019-09-14] MEDS: FAMOTIDINE 20 MG/2 ML VIAL IV SCH (21:42)
[2019-09-14] MEDS: RIFAXIMIN 550 MG TABLET PO SCH (22:36)
[2019-09-14 23:30] LABS: Glucose,Whole Blood 86 mg/dL (75-99)
[2019-09-15 00:20] LABS: Appearance,Urine Clear (Clear); Bacteria,Urine Occasional /hpf; Bilirubin,Urine Negative (Negative); Blood,Urine Negative (Negative); Color,Urine Yellow; Glucose,Urine (UA) Negative (Negative); Ketones,Urine Negative (Negative); Leukocyte Esterase,Urine Trace (Negative); Mucus,Urine Few /hpf; Nitrite,Urine Negative (Negative); Protein,Urine Trace (Negative); RBC,Urine 2 /hpf (0-5); Squamous Epithelial Cell,Urine 2 /hpf (0-4); WBC,Urine 12 /hpf (0-5)
[2019-09-15 00:22] LABS: Amphetamine Screen,Urine Not Detected (NotDetected); Barbiturate Screen,Urine Not Detected (NotDetected); Benzodiazepines Screen,Urine Not Detected (NotDetected); Cocaine Screen,Urine Not Detected (NotDetected); Methadone Screen, Urine Not Detected (NotDetected); Opiate Screen,Urine Not Detected (NotDetected); Oxycodone Screen, Urine Not Detected (NotDetected); Phencyclidine Screen,Urine Not Detected (NotDetected); Tricyclic Antidepressant,Urine Detected (NotDetected); Urn Cannabinoid Scrn Not Detected (NotDetected)
[2019-09-15 00:25] LABS: Specific Gravity,Urine >1.050 (1.001-1.035)
[2019-09-15 00:33] VITALS: BMI 35.4
--- NOTE | 2019-09-15 01:08 | P.HPIM ---
History of Present Illness H&P Date: 09/14/19 The patient is a 59 yo M with a PMH of alcoholic liver cirrhosis, hepatic encephalopathy, esophageal varices, COPD, hx of CVA, HTN, DM, and hypothyroidism who had presented to the ED due to confusion. The patient was confused during the interview and unable to provide any meaningful history. The patient that he does not know why he is at the hospital. History obtained from the chart. As per the ED documentation, the patient was evaluated by [facility] who had activated EMS since the patient was confused and not been taking his medications. The patient's had reported that they were moving and that the patient might not been taking his medications regularly. She had also reported noticing increased swelling of the patient's legs over the past few days. The patient himself denied having any active complaints. He denied headache, abdominal pain, nausea, vomiting, diarrhea, fever, or chills. He does not know why he is at the hospital. He was not able to state the year or name the hospital. He could not recall any of his medical history or the medications that he takes. He did endorse that he drinks and smokes regularly though couldn't specify the amount. The patient underwent an extensive evaluation in the ED w/ CT brain showing small lacunar infarct not previously seen. CTA of neck was unremarkable. EKG showed NSR @ [address]-T wave changes noted. CXR was unremarkable. Lab evaluation revealed WBC count of 4.1, hgb13.5, platelets 69, T bili 1.7, alb 3.5, Trop < 0.012, BUN 17, and Cr 1.06. Attempted to contact Ruthie Arizmendi ([phone]) w/ no response (person to contact) Past Medical History Past Medical History: COPD, CVA/TIA, Diabetes Mellitus, Hearing Disorder / Deafness, Hyperlipidemia, Hypertension, Liver Disease, Thyroid Disorder Additional Past Medical History / Comment(s): Pt recently admitted to [facility] on 08/05/18 with acute hepatic encephalopathy/increased ammonia levels. Other hx: Alcoholism, alcoholic liver cirrhosis, history of hepatic encephalopathy, portal hypertension and esophageal varices and portal hypertensive gastropathy, significant other states pt has not drank alcohol since March 2018, CVA, kidney stones, hypothyroidism, L ear deafness. History of Any Multi-Drug Resistant Organisms: None Reported Past Surgical History: Joint Replacement Additional Past Surgical History / Comment(s): Right nephrectomy as an for nonfunctioning kidney, bilateral total knee surgery, liver drain or stents done at [facility] Past Anesthesia/Blood Transfusion Reactions: No Reported Reaction Additional Past Anesthesia/Blood Transfusion Reaction / Comment(s): blood trandfusion - no known reaction Past Psychological History: Bipolar, Depression Smoking Status: Former smoker - Past Family History Mother Family Medical History: Cancer Additional Family Medical History / Comment(s): skin cancer Father History Unknown: Yes Additional Family Medical History / Comment(s): pt was raised buy his step dad. Medications and Allergies Home Medications Medication Instructions Recorded Confirmed Type Furosemide [Lasix] 20 mg PO DAILY 08/05/18 09/14/19 History Lactulose [Cephulac] 20 gm PO QID 08/05/18 09/14/19 History Cholecalciferol [Vitamin D3 (25 5,000 unit PO DAILY 08/18/18 09/14/19 History Mcg = 1000 Iu)] Ferrous Sulfate [Iron (65 MG 325 mg PO MOWEFR 08/18/18 09/14/19 History Elemental)] Levothyroxine Sodium 150 mcg PO DAILY #30 tablet 08/19/18 09/14/19 Rx Atorvastatin Calcium [Lipitor] 10 mg PO DAILY 09/14/19 09/14/19 History Insulin Glargine,Hum.rec.anlog 1 dose SQ DIRECTED 09/14/19 09/14/19 History [Basaglar Kwikpen U-100] Lisinopril [Zestril] 10 mg PO DAILY 09/14/19 09/14/19 History Magnesium Oxide [Mag-Ox] 400 mg PO BID 09/14/19 09/14/19 History Multivitamins, Thera [Multivitamin 1 tab PO DAILY 09/14/19 09/14/19 History (formulary)] Nicotine 21Mg/24Hr Patch [Habitrol] 1 patch TRANSDERM DAILY 09/14/19 09/14/19 History Pioglitazone [Actos] 15 mg PO DAILY 09/14/19 09/14/19 History Rifaximin [Xifaxan] 550 mg PO BID 09/14/19 09/14/19 History Allergies Allergy/AdvReac Type Severity Reaction Status Date / Time Penicillins Allergy Unknown Verified 09/14/19 18:00 Childhood Physical Exam Vitals: Vital Signs Temp Pulse Resp BP Pulse Ox 09/14/19 19:38 76 18 169/78 100 09/14/19 17:53 99.4 F 86 18 187/70 99 09/14/19 16:37 77 18 172/65 97 09/14/19 15:22 87 18 159/93 97 09/14/19 14:45 98.0 F 94 18 176/82 99 Intake and Output 09/14/19 09/14/19 09/14/19 06:59 14:59 22:59 Other: Weight 106.141 kg General: non toxic, no distress, appears older than stated age, obese Derm: no unusual rashes/lesions no unusual ecchymoses, warm, dry Head: atraumatic, normocephalic, symmetric Eyes: EOMI, no lid lag, anicteric sclera, pupils equal round reactive to light ENT: Nose and ears atraumatic, no thrush, no pharyngeal erythema Neck: No thyromegaly, no cervical lymphadenopathy, trachea midline, supple Mouth: no lip lesion, mucus membranes moist Cardiovascular: S1S2 reg, no murmur, positive posterior tibial pulse bilateral, 1+ kristina LE edema, capillary refill less than 2 seconds Lungs: CTA bilateral, no rhonchi, no rales , no accessory muscle use Abdominal: soft, nontender to palpation, no guarding, no appreciable organomegaly, normal bowel sounds Ext: no gross muscle atrophy, muscle strength 5 out of 5 in all 4 extremities grossly, no contractures, Neuro: CN II-XI grossly intact, light touch intact all 4 extremities, finger to nose within normal limits, no asterixis noted Psych: Awake, alert, oriented only to self and aware that he is in hospital, not oriented to time/date Results CBC & Chem 7: 09/14/19 14:54 09/14/19 14:54 Labs: Abnormal Lab Results - Last 24 Hours (Table) 09/14/19 09/14/19 09/14/19 Range/Units 14:54 14:54 14:54 Plt Count 69 L (150-450) k/uL Lymphocytes # 0.9 L (1.0-4.8) k/uL PT 13.4 H (9.0-12.0) sec INR 1.3 H (<1.2) APTT 31.6 H (22.0-30.0) sec Chloride 113 H (98-107) mmol/L Glucose 109 H (74-99) mg/dL Total Bilirubin 1.7 H (0.2-1.3) mg/dL Assessment and Plan Plan: Altered mental status in setting of alcoholic cirrhosis -Possibly due to hepatic encephalopathy, though ammonia levels within normal limits at 25 -Monitor ammonia levels -Continue with patient's home medications including lactulose -Consult neurology due to new findings on to be a contaminantCT Brain -Neurochecks -Fall, aspiration, seizure precautions Thrombocytopenia, chronic -Stable Type 2 DM -SUSANA with FS -Levemir 10 U qhs -Hold oral hypoglycemic agents HTN -C/w home meds: Lisinopril Hypothyroidism -C/w levothyroxine DVT prophylaxis -IPCDs The patient is admitted with an anticipated more than 2 midnight stay for evaluation of AMS CODE STATUS: Full Code Discussed with: Patient Anticipated discharge date: 3-[address]: Home A total of 40 minutes was spent on the care of this complex patient more than 50% of the time was spent in counseling and care coordination.
[2019-09-15] MEDS: SODIUM CHLORIDE 0.9% 1,000 ML IV SCH ×3 (04:00→23:37)
[2019-09-15 05:18] LABS: HCT 39.2 % (39.0-53.0); HGB 12.2 gm/dL (13.0-17.5); MCH 31.1 pg (25.0-35.0); MCHC 31.2 g/dL (31.0-37.0); MCV 99.7 fL (80.0-100.0); Macrocytosis Slight; RBC 3.93 m/uL (4.30-5.90); RDW 14.9 % (11.5-15.5); WBC 3.2 k/uL (3.8-10.6)
[2019-09-15 05:19] LABS: Platelet Count 64 k/uL (150-450)
[2019-09-15 05:29] LABS: Albumin 3.2 g/dL (3.5-5.0); Calcium 8.9 mg/dL (8.4-10.2); Potassium 3.9 mmol/L (3.5-5.1); Total Bilirubin 1.7 mg/dL (0.2-1.3); Total Protein 6.6 g/dL (6.3-8.2)
[2019-09-15 08:01] LABS: Glucose,Whole Blood 91 mg/dL (75-99)
[2019-09-15] MEDS: LACTULOSE 20 GM/30 ML CUP PO SCH ×5 (08:25→22:09)
[2019-09-15] MEDS: INSULIN ASPART (NovoLOG) 100 UNIT/ML VIAL SQ SCH ×3 (08:26→17:21)
[2019-09-15] MEDS ORDERED: FERROUS SULFATE 325 MG TAB PO SCH (09:00)
[2019-09-15] MEDS: MULTIVITAMINS, THERA 1 EACH TAB PO SCH (10:01)
[2019-09-15] MEDS: LEVOTHYROXINE 75 MCG TAB PO SCH (10:02)
[2019-09-15] MEDS: CHOLECALCIFEROL 1,000 UNIT TAB PO SCH (10:03)
[2019-09-15] MEDS: ATORVASTATIN 10 MG TAB PO SCH (10:06)
[2019-09-15] MEDS: MAGNESIUM OXIDE 400 MG TAB PO SCH ×2 (10:07→21:16)
[2019-09-15] MEDS: FUROSEMIDE 20 MG TAB PO SCH (10:07)
[2019-09-15] MEDS: LISINOPRIL 10 MG TAB PO SCH (10:07)
[2019-09-15] MEDS: FAMOTIDINE 20 MG/2 ML VIAL IV SCH ×2 (10:09→21:16)
[2019-09-15] MEDS: NICOTINE 21MG/24HR PATCH TRANSDERM SCH (10:39)
[2019-09-15] MEDS: RIFAXIMIN 550 MG TABLET PO SCH ×2 (10:39→21:16)
--- NOTE | 2019-09-15 12:01 | P.PN ---
Subjective Progress Note Date: 09/15/19 Principal diagnosis: Altered mental status Patient feels okay today, he denies chest pain, no abdominal pain, no nausea no vomiting no shortness of breath. He denies focal weakness Objective - Vital Signs Vital signs: Vital Signs Temp 98.7 F 09/15/19 08:00 Pulse 78 09/15/19 11:00 Resp 16 09/15/19 11:00 BP 162/77 09/15/19 11:00 Pulse Ox 94 L 09/15/19 11:00 Intake & Output 09/14/19 09/15/19 09/15/19 18:59 06:59 18:59 Intake Total 100 800 Output Total 300 915 Balance -200 -115 Weight 106.141 kg 115.2 kg Intake: IV 100 800 Sodium Chloride 0.9% 1, 100 800 000 ml @ 100 mls/hr IV . Q10H ONE Rx#:[id number] Output: Urine 300 915 Other: Voiding Method Urinal Urinal - Exam General: non toxic, no distress, Derm: no unusual rashes/lesions no unusual ecchymoses, warm, dry Head: atraumatic, normocephalic, symmetric Eyes: EOMI, no lid lag ENT: Nose and ears atraumatic Neck: No thyromegaly, no cervical lymphadenopathy, trachea midline, supple Mouth: no lip lesion, mucus membranes moist Cardiovascular: S1S2 reg, no murmur, positive posterior tibial pulse bilateral, 1+ kristina LE edema, capillary refill less than 2 seconds Lungs: CTA bilateral, no rhonchi, no rales Abdominal: soft, nontender to palpation Ext: no gross muscle atrophy Neuro: CN II-XI grossly intact Psych: Awake, alert, oriented x3 - Labs CBC & Chem 7: 09/15/19 04:53 09/15/19 04:53 Labs: Abnormal Lab Results - Last 24 Hours (Table) 09/14/19 09/14/19 09/14/19 Range/Units 14:54 14:54 14:54 WBC (3.8-10.6) k/uL RBC (4.30-5.90) m/uL Hgb (13.0-17.5) gm/dL Plt Count 69 L (150-450) k/uL Lymphocytes # 0.9 L (1.0-4.8) k/uL PT 13.4 H (9.0-12.0) sec INR 1.3 H (<1.2) APTT 31.6 H (22.0-30.0) sec Chloride 113 H (98-107) mmol/L Carbon Dioxide (22-30) mmol/L Glucose 109 H (74-99) mg/dL Total Bilirubin 1.7 H (0.2-1.3) mg/dL Ammonia (<30) umol/L Albumin (3.5-5.0) g/dL HDL Cholesterol (40-60) mg/dL Ur Specific [place] (1.001-1.035) Urine Protein (Negative) Ur Leukocyte Esterase (Negative) Urine WBC (0-5) /hpf Urine Bacteria (None) /hpf Urine Mucus (None) /hpf U Tricyclic Antidepress (NotDetected) 09/14/19 09/15/19 09/15/19 Range/Units 23:35 04:53 04:53 WBC 3.2 L (3.8-10.6) k/uL RBC 3.93 L (4.30-5.90) m/uL Hgb 12.2 L (13.0-17.5) gm/dL Plt Count 64 L (150-450) k/uL Lymphocytes # (1.0-4.8) k/uL PT (9.0-12.0) sec INR (<1.2) APTT (22.0-30.0) sec Chloride 114 H (98-107) mmol/L Carbon Dioxide 20 L (22-30) mmol/L Glucose (74-99) mg/dL Total Bilirubin 1.7 H (0.2-1.3) mg/dL Ammonia (<30) umol/L Albumin 3.2 L (3.5-5.0) g/dL HDL Cholesterol 33 L (40-60) mg/dL Ur Specific [place] >1.050 H (1.001-1.035) Urine Protein Trace H (Negative) Ur Leukocyte Esterase Trace H (Negative) Urine WBC 12 H (0-5) /hpf Urine Bacteria Occasional H (None) /hpf Urine Mucus Few H (None) /hpf U Tricyclic Antidepress Detected H (NotDetected) 09/15/19 Range/Units 04:53 WBC (3.8-10.6) k/uL RBC (4.30-5.90) m/uL Hgb (13.0-17.5) gm/dL Plt Count (150-450) k/uL Lymphocytes # (1.0-4.8) k/uL PT (9.0-12.0) sec INR (<1.2) APTT (22.0-30.0) sec Chloride (98-107) mmol/L Carbon Dioxide (22-30) mmol/L Glucose (74-99) mg/dL Total Bilirubin (0.2-1.3) mg/dL Ammonia 37 H (<30) umol/L Albumin (3.5-5.0) g/dL HDL Cholesterol (40-60) mg/dL Ur Specific [place] (1.001-1.035) Urine Protein (Negative) Ur Leukocyte Esterase (Negative) Urine WBC (0-5) /hpf Urine Bacteria (None) /hpf Urine Mucus (None) /hpf U Tricyclic Antidepress (NotDetected) Assessment and Plan Plan: Altered mental status in setting of alcoholic cirrhosis -Possibly due to hepatic encephalopathy -Monitor -Continue lactulose -Consult neurology due to new findings on CT Brain -Possible small lack or infarct right basilar ganglion of indetermined -Fall, aspiration, seizure precautions -PT/OT -Obtain brain MRI - Started aspirin, continue Lipitor Thrombocytopenia, chronic -Stable, monitor. Type 2 DM -SUSANA with FS -Levemir 10 U qhs -Hold oral hypoglycemic agents HTN -C/w home meds: Lisinopril Hypothyroidism -C/w levothyroxine DVT prophylaxis -IPCDs CODE STATUS: Full Code Anticipated discharge date: 1-[address]: Home
[2019-09-15 12:03] LABS: Glucose,Whole Blood 116 mg/dL (75-99)
[2019-09-15] MEDS: ASPIRIN 325 MG TAB PO SCH (15:20)
--- NOTE | 2019-09-15 15:28 | MR ---
EXAMINATION TYPE: MR brain wo con DATE OF EXAM: 09/15/2019 COMPARISON: MRI brain November 09, 2017. CT brain from yesterday. HISTORY: Altered mental status TECHNIQUE: Multiplanar, multisequence imaging of the brain and brainstem is performed without IV cont rast. FINDINGS: Diffusion weighted images demonstrate no evidence of a recent infarct or other diffusion abnormality. There is no worrisome extra-axial fluid collection. Mild ventricular and sulcal prominence. Scattered foci of hyperintense signal most prominent in the deep and periventricular levels. Prominent Virchow -Bola space suspected inferior right basal ganglia image 16 unchanged from prior MRI versus old lacu yefri infarct. Midline structures demonstrate normal morphology. The craniocervical junction appears within normal limits. Normal vascular flow voids are present. The visualized sinuses are clear and the globes are i ntact. IMPRESSION: No evidence of a recent infarct. Mild diffuse cerebral atrophy and moderate chronic small vessel ischemic changes redemonstrated.
--- NOTE | 2019-09-15 15:49 | P.CNNES ---
History of Present Illness Consult date: 09/15/19 Requesting physician: Tayler Yu Reason for Consult: Altered mental status History of Present Illness: Patient is a 59-year-old male with history of alcoholic liver cirrhosis, hepatic encephalopathy, esophageal varices, history of CVA, hypertension, who presented to the ED due to mental confusion. Patient's has mentioned that they were moving, therefore patient may not have taken his medication regularly. Patient has been complaining of increased swelling of the legs. Denies any focal neurological symptoms. Patient had computed tomography scan of the head which revealed small lacunar infarct right basal ganglia on of indeterminate age. Patient underwent CTA of head and neck, which revealed mild plaque at the carotid artery bifurcations with no evidence of hemodynamically significant stenosis. MRI of the brain showed no evidence of recent infarct. Mild diffuse cerebral atrophy and moderate chronic small vessel ischemic change. Patient denies diabetes. He has smoked half pack per day since he is he was in sixth-grade. Patient states that he has drank a lot, "as much as he could", from age 38s up to age 56 when he quit 3 years ago. Denies any drug use. Past Medical History Past Medical History: COPD, CVA/TIA, Diabetes Mellitus, Hearing Disorder / Deafness, Hyperlipidemia, Hypertension, Liver Disease, Thyroid Disorder Additional Past Medical History / Comment(s): Pt recently admitted to [facility] on 08/05/18 with acute hepatic encephalopathy/increased ammonia levels. Other hx: Alcoholism, alcoholic liver cirrhosis, history of hepatic encephalopathy, portal hypertension and esophageal varices and portal hypertensive gastropathy, significant other states pt has not drank alcohol since March 2018, CVA, kidney stones, hypothyroidism, L ear deafness. 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 Medications and Allergies Home Medications Medication Instructions Recorded Confirmed Type Furosemide [Lasix] 20 mg PO DAILY 08/05/18 09/15/19 History Lactulose [Cephulac] 20 gm PO QID 08/05/18 09/15/19 History Cholecalciferol [Vitamin D3 (25 5,000 unit PO DAILY 08/18/18 09/15/19 History Mcg = 1000 Iu)] Ferrous Sulfate [Iron (65 MG 325 mg PO MOWEFR 08/18/18 09/15/19 History Elemental)] Levothyroxine Sodium 150 mcg PO DAILY #30 tablet 08/19/18 09/15/19 Rx Atorvastatin Calcium [Lipitor] 10 mg PO DAILY 09/14/19 09/15/19 History Insulin Glargine,Hum.rec.anlog 25 units SQ HS 09/14/19 09/15/19 History [Basaglar Kwikpen U-100] Lisinopril [Zestril] 10 mg PO DAILY 09/14/19 09/15/19 History Magnesium Oxide [Mag-Ox] 400 mg PO BID 09/14/19 09/15/19 History Multivitamins, Thera [Multivitamin 1 tab PO DAILY 09/14/19 09/15/19 History (formulary)] Nicotine 21Mg/24Hr Patch [Habitrol] 1 patch TRANSDERM DAILY 09/14/19 09/15/19 History Pioglitazone [Actos] 15 mg PO DAILY 09/14/19 09/15/19 History Rifaximin [Xifaxan] 550 mg PO BID 09/14/19 09/15/19 History QUEtiapine [SEROquel] 200 mg PO HS 09/15/19 09/15/19 History Allergies Allergy/AdvReac Type Severity Reaction Status Date / Time Penicillins Allergy Unknown Verified 09/14/19 18:00 Childhood Physical Examination - Vital Signs Vital Signs: Vital Signs Temp Pulse Resp BP Pulse Ox 09/15/19 12:00 98.5 F 75 15 170/70 94 L 09/15/19 11:00 78 16 162/77 94 L 09/15/19 10:00 79 17 161/73 95 09/15/19 09:00 82 15 174/77 95 09/15/19 08:00 98.7 F 89 17 156/64 95 09/15/19 07:57 96 09/15/19 07:00 85 17 156/65 95 09/15/19 06:00 85 20 163/73 94 L 09/15/19 05:00 80 20 157/67 94 L 09/15/19 04:00 98.7 F 79 14 175/68 92 L 09/15/19 03:00 86 10 L 168/69 96 09/15/19 02:00 86 12 160/66 96 09/15/19 01:00 89 15 149/61 96 09/15/19 00:00 98.6 F 88 17 169/64 96 09/14/19 23:30 98.6 F 22 96 09/14/19 21:47 75 18 155/65 98 09/14/19 21:33 74 18 181/72 100 09/14/19 19:38 76 18 169/78 100 09/14/19 17:53 99.4 F 86 18 187/70 99 09/14/19 16:37 77 18 172/65 97 Intake and Output 09/15/19 09/15/19 09/15/19 06:59 14:59 22:59 Intake Total 100 800 Output Total 300 1815 Balance -200 -1015 Intake: IV 100 800 Sodium Chloride 0.9% 1, 100 800 000 ml @ 100 mls/hr IV . Q10H ONE Rx#:[id number] Output: Urine 300 1815 Other: Voiding Method Urinal Urinal Weight 115.2 kg On examination patient is a late middle aged male, in no distress. Patient at present is fully alert awake oriented. He knows that it is August 2019 that he is in [facility] in [facility]. She knows name of the current president. Speech and language functions are normal. Cranial nerves are normal. Visual lance are full. Face is symmetric and tongue protrudes the midline. On muscle strength testing there is no drift and the strength is normal in arms and legs. Reflexes are diminished and plantars are downgoing. Tone and bulk of muscles normal. Bruit or murmur. Results Patient's hemoglobin A1c is 5.7 on 07/27/2019. Ammonia is 37. Patient's total cholesterol is 139, LDL 77, HDL 33. Folate 19.2. B12 is 601. - Laboratory Findings CBC and BMP: 09/15/19 04:53 09/15/19 04:53 Abnormal Lab Findings: Abnormal Labs 09/14/19 09/14/19 09/14/19 14:54 14:54 14:54 WBC RBC Hgb Plt Count 69 L Lymphocytes # 0.9 L PT 13.4 H INR 1.3 H APTT 31.6 H Chloride 113 H Carbon Dioxide Glucose 109 H POC Glucose (mg/dL) Total Bilirubin 1.7 H Ammonia Albumin HDL Cholesterol Ur Specific [place] Urine Protein Ur Leukocyte Esterase Urine WBC Urine Bacteria Urine Mucus U Tricyclic Antidepress 09/14/19 09/15/19 09/15/19 23:35 04:53 04:53 WBC 3.2 L RBC 3.93 L Hgb 12.2 L Plt Count 64 L Lymphocytes # PT INR APTT Chloride 114 H Carbon Dioxide 20 L Glucose POC Glucose (mg/dL) Total Bilirubin 1.7 H Ammonia Albumin 3.2 L HDL Cholesterol 33 L Ur Specific [place] >1.050 H Urine Protein Trace H Ur Leukocyte Esterase Trace H Urine WBC 12 H Urine Bacteria Occasional H Urine Mucus Few H U Tricyclic Antidepress Detected H 09/15/19 09/15/19 04:53 12:01 WBC RBC Hgb Plt Count Lymphocytes # PT INR APTT Chloride Carbon Dioxide Glucose POC Glucose (mg/dL) 116 H Total Bilirubin Ammonia 37 H Albumin HDL Cholesterol Ur Specific [place] Urine Protein Ur Leukocyte Esterase Urine WBC Urine Bacteria Urine Mucus U Tricyclic Antidepress Assessment and Plan Assessment: * Altered mental status, likely due to hepatic encephalopathy. Apparently ammonia level is normal. * Hepatic cirrhosis. * Old lacunar infarct. * Tobacco user. * Hypertension. * Thrombocytopenia due to hepatic disease. Plan: * Neurologically, no other workup is indicated. * Consider starting aspirin 81 mg daily if no medical contraindication. However because of thrombocytopenia would be reluctant to start aspirin. * Strongly recommend tobacco cessation. * Avoid statins due to advanced liver disease. * Neurologically clear. We will sign off.
[2019-09-15 16:51] LABS: Glucose,Whole Blood 97 mg/dL (75-99)
[2019-09-15 20:43] LABS: Glucose,Whole Blood 98 mg/dL (75-99)
[2019-09-16 06:09] LABS: Basophils % (A) 1 %; Eosinophils # (A) 0.1 k/uL (0-0.7); Eosinophils % (A) 4 %; HGB 13.1 gm/dL (13.0-17.5); Lymphocytes # (A) 0.8 k/uL (1.0-4.8); Lymphocytes % (A) 24 %; MCH 32.5 pg (25.0-35.0); MCHC 33.6 g/dL (31.0-37.0); MCV 96.8 fL (80.0-100.0); Mean Platelet Volume 7.3; Monocytes # (A) 0.3 k/uL (0-1.0); Monocytes % (A) 8 %; Neutrophils # (A) 1.9 k/uL (1.3-7.7); Neutrophils % (A) 59 %; RBC 4.03 m/uL (4.30-5.90); RDW 14.2 % (11.5-15.5); WBC 3.2 k/uL (3.8-10.6)
[2019-09-16 06:10] LABS: Platelet Count 65 k/uL (150-450)
[2019-09-16 06:25] LABS: ALT 33 U/L (21-72); AST 63 U/L (17-59); African American GFR (CKD) >90 (>60 ml/min/1.73 sqM); Albumin 3.6 g/dL (3.5-5.0); Alkaline Phosphatase 94 U/L (38-126); Anion Gap 6 mmol/L; Blood Urea Nitrogen 12 mg/dL (9-20); Calcium 9.6 mg/dL (8.4-10.2); Carbon Dioxide 24 mmol/L (22-30); Chloride 110 mmol/L (98-107); Glucose 105 mg/dL (74-99); Potassium 4.1 mmol/L (3.5-5.1); Sodium 140 mmol/L (137-145); Total Bilirubin 2.6 mg/dL (0.2-1.3); Total Protein 7.3 g/dL (6.3-8.2)
[2019-09-16] MEDS: LEVOTHYROXINE 75 MCG TAB PO SCH (06:37)
[2019-09-16 06:56] LABS: Glucose,Whole Blood 112 mg/dL (75-99)
[2019-09-16] MEDS: INSULIN ASPART (NovoLOG) 100 UNIT/ML VIAL SQ SCH ×2 (07:53→12:48)
[2019-09-16] MEDS: ATORVASTATIN 10 MG TAB PO SCH (10:02)
[2019-09-16] MEDS: ASPIRIN 325 MG TAB PO SCH (10:02)
[2019-09-16] MEDS: CHOLECALCIFEROL 1,000 UNIT TAB PO SCH (10:03)
[2019-09-16] MEDS: FUROSEMIDE 20 MG TAB PO SCH (10:03)
[2019-09-16] MEDS: LISINOPRIL 10 MG TAB PO SCH (10:03)
[2019-09-16] MEDS: MAGNESIUM OXIDE 400 MG TAB PO SCH (10:04)
[2019-09-16] MEDS: RIFAXIMIN 550 MG TABLET PO SCH (10:05)
[2019-09-16] MEDS: LACTULOSE 20 GM/30 ML CUP PO SCH ×2 (10:05→13:46)
[2019-09-16] MEDS: FAMOTIDINE 20 MG/2 ML VIAL IV SCH (10:05)
[2019-09-16] MEDS: NICOTINE 21MG/24HR PATCH TRANSDERM SCH (10:11)
[2019-09-16] MEDS: MULTIVITAMINS, THERA 1 EACH TAB PO SCH (10:11)
[2019-09-16 12:09] LABS: Glucose,Whole Blood 108 mg/dL (75-99)
[2019-09-16 12:47] VITALS: BP 158/69; PULSE 73; RESP 19; TEMP 98.5
[2019-09-16] MEDS: SODIUM CHLORIDE 0.9% 1,000 ML IV SCH (12:47)
--- NOTE | 2019-09-16 12:58 | P.DS ---
Providers Date of admission: 09/14/19 18:30 Expected date of discharge: 09/16/19 Attending physician: Titus Robins MD Consults: 09/14/19 17:57 Consult Physician Urgent Consulting Provider: Grace Day Consult Reason/Comments: Lacunar infarct, AMS Do you want consulting provider notified?: Yes Primary care physician: [facility] [place] [facility] Hospital Course: Discharge Diagnosis: Hepatic encephalopathy Hx of TIPS Alcoholic cirrhosis Thrombocytopenia Dm 2 insulin requiring Accelerated hypertension Morbid obesity with BMI 34.6 Hx of Esophageal varicies Hospital Course: Patient is a 59-year-old male past medical history of alcoholic liver cirrhosis with prior esophageal varices and hepatic encephalopathy, COPD, prior stroke, diabetes, and hypertension who presented to the emergency department due to confusion. Per documentation the patient was evaluated by [facility] who activated EMS the patient was confused and had not been taking medications. He had also noted some increased swelling in the patient's legs over the past few days. On arrival to the ER here he was hypertensive the blood pressure 176/82. Initial laboratory analysis was consistent with his chronic thrombocytopenia and elevated bilirubin. UDS demonstrated tricyclic antidepressants. He was admitted for further monitoring. Head CT demonstrated a small lacunar infarct in the right basal ganglia of indeterminate age, chest x-ray was negative, CT head and neck showed mild plaquing of the carotid artery bifurcations and no significant hemodynamic stenosis. There is concern altered mentation. Possible acute stroke. He underwent a MRI brain which showed no evidence of recent infarct but did demonstrate mild diffuse cerebral atrophy and moderate chronic small vessel ischemic changes. He is evaluated by neurology who felt this was likely due to hepatic encephalopathy and not stroke. They did suggest adding a baby aspirin daily if okay with GI. His mentation improved with resumption of his home medications including lactulose and Xifaxan. On the morning of 09/16 he was back to baseline. He was determined stable for discharge home. We will resume his home lactulose twice daily and Xifaxan. He has appointment with Beryl Hahn PA-C at the GI clinic in 2 days. He will discu ss with her then whether he is a candidate for a baby aspirin daily. He was given instructions to stay off of Actos and reduce his long-acting insulin doses as his blood sugars have been normal here without insulin. Samson that he may have had a component of confusion secondary to hypoglycemia, though most blood sugar here was 97. He will also continue to follow at the [facility] as his primary medical home. He states he is unsure if he is taking his medications at home as they had just recently moved. He denies needing refills on any medications. Patient seen and examined at bedside. Feeling well. No chest pain, shortness breath, nausea, or vomiting. Still having some lower extremity edema but this significant as prior. Vital signs reviewed and stable. General: non toxic, no distress, appears at stated age Derm: warm, dry Head: atraumatic, normocephalic, symmetric Eyes: EOMI, no lid lag, anicteric sclera Mouth: no lip lesion, mucus membranes moist Cardiovascular: S1S2 reg, no murmur, positive posterior tibial pulse bilateral, Lungs: CTA bilateral, no rhonchi, no rales , no accessory muscle use, distended Abdominal: soft, nontender to palpation, no guarding, no appreciable organomegaly Ext: no gross muscle atrophy, no edema, no contractures Neuro: CN II-XI grossly intact, no focal neuro deficits Psych: Alert, oriented, appropriate affect A total of 35 minutes of time were spent preparing this complex discharge summary . Patient Condition at Discharge: Stable Plan - Discharge Summary Discharge Rx Participant: No New Discharge Prescriptions: Continue Furosemide [Lasix] 20 mg PO DAILY Cholecalciferol [Vitamin D3 (25 Mcg = 1000 Iu)] 5,000 unit PO DAILY Ferrous Sulfate [Iron (65 MG Elemental)] 325 mg PO MOWEFR Levothyroxine Sodium 150 mcg PO DAILY #30 tablet Atorvastatin Calcium [Lipitor] 10 mg PO DAILY Rifaximin [Xifaxan] 550 mg PO BID Nicotine 21Mg/24Hr Patch [Habitrol] 1 patch TRANSDERM DAILY Multivitamins, Thera [Multivitamin (formulary)] 1 tab PO DAILY Magnesium Oxide [Mag-Ox] 400 mg PO BID Lisinopril [Zestril] 10 mg PO DAILY QUEtiapine [SEROquel] 200 mg PO HS Changed Insulin Glargine,Hum.rec.anlog [Basaglar Kwikpen U-100] 20 units SQ HS #0 Lactulose [Cephulac] 20 gm PO BID #0 Discontinued Pioglitazone [Actos] 15 mg PO DAILY Discharge Medication List Furosemide [Lasix] 20 mg PO DAILY 08/05/18 [History] Cholecalciferol [Vitamin D3 (25 Mcg = 1000 Iu)] 5,000 unit PO DAILY 08/18/18 [History] Ferrous Sulfate [Iron (65 MG Elemental)] 325 mg PO MOWEFR 08/18/18 [History] Levothyroxine Sodium 150 mcg PO DAILY #30 tablet 08/19/18 [Rx] Atorvastatin Calcium [Lipitor] 10 mg PO DAILY 09/14/19 [History] Lisinopril [Zestril] 10 mg PO DAILY 09/14/19 [History] Magnesium Oxide [Mag-Ox] 400 mg PO BID 09/14/19 [History] Multivitamins, Thera [Multivitamin (formulary)] 1 tab PO DAILY 09/14/19 [History] Nicotine 21Mg/24Hr Patch [Habitrol] 1 patch TRANSDERM DAILY 09/14/19 [History] Rifaximin [Xifaxan] 550 mg PO BID 09/14/19 [History] QUEtiapine [SEROquel] 200 mg PO HS 09/15/19 [History] Insulin Glargine,Hum.rec.anlog [Basaglar Kwikpen U-100] 20 units SQ HS #0 09/16/19 [Rx] Lactulose [Cephulac] 20 gm PO BID #0 09/16/19 [Rx] Follow up Appointment(s)/Referral(s): [facility] [Primary Care Provider] - 1-2 days Beryl Hahn PAC [REFERRING] - As Needed (at scheduled appointment on 09/18) Patient Instructions/Handouts: Cirrhosis (DC), Hypoglycemia in a Person with Diabetes (DC) Activity/Diet/Wound Care/Special Instructions: Activity: as tolerated Diet: 2 gram sodium, 2L fluid restriction Special Instructions: Please ask Beryl if you can start a daily baby aspirin regiment to decrease your risk of stroke due to diabetes and high blood pressure Follow blood pressure closely as it was elevated in the hospital. Take blood sugar every morning or if confused. your blood sugars were 97-110 here without your basaglar insulin and actos.
== END 2019-09-16 14:52 | disposition home or self-care (01) | DRG 433 ==
LOC: EC 14:41 → 3SCARD 18:30 → 2SICU 22:00
PROVIDERS: ADMIT Family Medicine; ATTEND Family Medicine
DX: K70.40 Alcoholic hepatic failure without coma (principal); K76.6 Portal hypertension; I85.10 Secondary esophageal varices without bleeding; D69.59 Other secondary thrombocytopenia; E03.9 Hypothyroidism, unspecified; E11.9 Type 2 diabetes mellitus without complications; E66.01 Morbid (severe) obesity due to excess calories; E78.5 Hyperlipidemia, unspecified; F32.9 Major depressive disorder, single episode, unspecified; H91.90 Unspecified hearing loss, unspecified ear; I10 Essential (primary) hypertension; J44.9 Chronic obstructive pulmonary disease, unspecified; K70.30 Alcoholic cirrhosis of liver without ascites; Z68.34 Body mass index [BMI] 34.0-34.9, adult; Z72.0 Tobacco use; Z79.4 Long term (current) use of insulin; Z79.890 Hormone replacement therapy; Z79.899 Other long term (current) drug therapy; Z80.8 Family history of malignant neoplasm of other organs or systems; Z86.73 Personal history of transient ischemic attack (TIA), and cerebral infarction without residual deficits; Z90.5 Acquired absence of kidney; Z91.14 Patient's other noncompliance with medication regimen; Y63.6 Underdosing and nonadministration of necessary drug, medicament or biological substance; Z88.0 Allergy status to penicillin; I65.29 Occlusion and stenosis of unspecified carotid artery; K31.89 Other diseases of stomach and duodenum; Z96.653 Presence of artificial knee joint, bilateral
CPT/HCPCS: 36415; 70450; 70496; 70498; 70551; 71046; 80053; 80061; 80306; 80320; 81001; 82140; 84484; 85025; 85027; 85610; 85730; 93005; 96360; 96361; 96374; 96375; 99285

== ENCOUNTER → 2019-11-01 | Outpatient (CLI) | payer OTHER ==
[2019-11-01 19:16] LABS: Hemoglobin A1C 6.4 % (4.0-6.0)
== END | disposition home or self-care (01) ==
LOC: LABWHC1 10:24
PROVIDERS: ATTEND Internal Medicine
DX: E11.65 Type 2 diabetes mellitus with hyperglycemia (principal)
CPT/HCPCS: 36415; 83036

== ENCOUNTER 2019-11-24 16:37 | Observation (INO) | payer OTHER ==
[2019-11-24] MEDS ORDERED: SODIUM CHLORIDE 0.9% 1,000 ML IV ONE (17:02)
[2019-11-24 17:14] LABS: Basophils % (A) 1 %; Eosinophils # (A) 0.2 k/uL (0-0.7); Eosinophils % (A) 4 %; HCT 38.1 % (39.0-53.0); Lymphocytes # (A) 0.9 k/uL (1.0-4.8); Lymphocytes % (A) 20 %; MCH 32.2 pg (25.0-35.0); MCHC 34.2 g/dL (31.0-37.0); MCV 94.2 fL (80.0-100.0); Mean Platelet Volume 10.3; Monocytes # (A) 0.2 k/uL (0-1.0); Monocytes % (A) 5 %; Neutrophils # (A) 2.9 k/uL (1.3-7.7); Neutrophils % (A) 67 %; RBC 4.04 m/uL (4.30-5.90); RDW 13.6 % (11.5-15.5); WBC 4.4 k/uL (3.8-10.6)
--- NOTE | 2019-11-24 17:17 | ED ---
Altered Mental Status HPI - General Chief Complaint: Altered Mental Status Stated Complaint: AMS Time Seen by Provider: 11/24/19 16:40 Source: EMS Mode of arrival: EMS Limitations: altered mental status - History of Present Illness Initial Comments: The patient is a 59-year-old male with past medical history of end-stage liver disease secondary to alcohol abuse who presents emergency Department with altered mental status. Patient's is at bedside and helps provide history. She states that yesterday the patient's was acting slightly "off". It seemed to progress overnight and into today. States that she's been with him the whole time. He has become less active and more confused. She questioned him whether he is taking his medications and he finally admitted that he did not. He is on rifaximin and lactulose in order to keep his ammonia levels normal. She states that he will have 4 bowel movements a day and he has only had 1 today. The patient has not urinated at all. She denies that he fell or hit his head. There is been no nausea or vomiting from the patient. No recent illnesses. No fevers or chills. The patient denies any headaches or visual changes. No unilateral numbness or weakness. Patient does admit to me that he does not take his medications. Denies any back or abdominal pain. reports the patient recently had a stroke. Remainder of the HPI is limited because the patient's current condition. - Related Data Home Medications Medication Instructions Recorded Confirmed Furosemide [Lasix] 20 mg PO DAILY 08/05/18 11/24/19 Cholecalciferol [Vitamin D3 (25 5,000 unit PO DAILY 08/18/18 11/24/19 Mcg = 1000 Iu)] Ferrous Sulfate [Iron (65 MG 325 mg PO MOWEFR 08/18/18 11/24/19 Elemental)] Atorvastatin Calcium [Lipitor] 10 mg PO DAILY 09/14/19 11/24/19 Lisinopril [Zestril] 10 mg PO DAILY 09/14/19 11/24/19 Magnesium Oxide [Mag-Ox] 400 mg PO BID 09/14/19 11/24/19 Multivitamins, Thera [Multivitamin 1 tab PO DAILY 09/14/19 11/24/19 (formulary)] Nicotine 21Mg/24Hr Patch [Habitrol] 1 patch TRANSDERM DAILY 09/14/19 11/24/19 Rifaximin [Xifaxan] 550 mg PO BID 09/14/19 11/24/19 Albuterol Inhaler [Ventolin Hfa 1 - 2 puff INHALATION RT-Q4H PRN 11/24/19 11/24/19 Inhaler] Aspirin EC [Ecotrin Low Dose] 81 mg PO DAILY 11/24/19 11/24/19 Insulin Glargine,Hum.rec.anlog 25 unit SQ HS 11/24/19 11/24/19 [Basaglar Kwikpen U-100] Nitrostat 0.3mg 0.3 mg SL Q5M PRN 11/24/19 11/24/19 Pioglitazone [Actos] 15 mg PO DAILY 11/24/19 11/24/19 QUEtiapine XR [SEROquel XR] 200 mg PO HS 11/24/19 11/24/19 Previous Rx's Medication Instructions Recorded Levothyroxine Sodium 150 mcg PO DAILY #30 tablet 08/19/18 Insulin Glargine,Hum.rec.anlog 20 units SQ HS #0 09/16/19 [Basaglar Kwikpen U-100] Lactulose [Cephulac] 20 gm PO QID #1 11/27/19 Tamsulosin [Flomax] 0.4 mg PO PC-BRKFST #30 cap.er.24h 11/27/19 Allergies Allergy/AdvReac Type Severity Reaction Status Date / Time Penicillins Allergy Unknown Verified 09/14/19 18:00 Childhood Review of Systems ROS Statement: Those systems with pertinent positive or pertinent negative responses have been documented in the HPI. ROS Other: All systems not noted in ROS Statement are negative. Past Medical History Past Medical History: COPD, CVA/TIA, Diabetes Mellitus, Hearing Disorder / Deafness, Hyperlipidemia, Hypertension, Liver Disease, Thyroid Disorder Additional Past Medical History / Comment(s): Pt recently admitted to [facility] on 08/05/18 with acute hepatic encephalopathy/increased ammonia levels. Other hx: Alcoholism, alcoholic liver cirrhosis, history of hepatic encephalopathy, portal hypertension and esophageal varices and portal hypertensive gastropathy, significant other states pt has not drank alcohol since March 2018, CVA, kidney stones, hypothyroidism, L ear deafness. 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, bilateral total knee surgery, liver drain or stents done at [facility], [place] Past Anesthesia/Blood Transfusion Reactions: No Reported Reaction Additional Past Anesthesia/Blood Transfusion Reaction / Comment(s): blood trandfusion - no known reaction Past Psychological History: Bipolar, Depression Smoking Status: Former smoker Past Alcohol Use History: None Reported Past Drug Use History: None Reported - Past Family History Mother Family Medical History: Cancer Additional Family Medical History / Comment(s): skin cancer Father History Unknown: Yes Additional Family Medical History / Comment(s): pt was raised buy his step dad. General Exam Limitations: altered mental status General appearance: other (confused, tremorous, follows commands. ) Head exam: Present: atraumatic, normocephalic Eye exam: Present: PERRL, EOMI Pupils: Present: normal accommodation ENT exam: Present: mucous membranes dry Neck exam: Absent: tenderness, meningismus Respiratory exam: Present: normal lung sounds bilaterally. Absent: respiratory distress, wheezes, rales, rhonchi Cardiovascular Exam: Present: regular rate, normal rhythm GI/Abdominal exam: Present: other (obese). Absent: tenderness, guarding, rebound Extremities exam: Present: pedal edema, other (asterixis bilaterally upper extremities) Neurological exam: Present: altered, CN II-XII intact, other (follows commands) Psychiatric exam: Present: flat affect Skin exam: Present: diaphoretic Course Vital Signs 11/24/19 11/24/19 11/24/19 16:42 18:21 19:00 Temperature 98.7 F Pulse Rate 82 77 82 Respiratory 18 18 18 Rate Blood Pressure 187/78 157/74 161/67 O2 Sat by Pulse 99 99 98 Oximetry 11/24/19 19:44 Temperature Pulse Rate 75 Respiratory 18 Rate Blood Pressure 163/65 O2 Sat by Pulse 97 Oximetry Medical Decision Making - Medical Decision Making Upon the patient was placed in room 24. A thorough history and physical was performed. a peripheral IV is established. A 12-lead EKG is performed. I recommended laboratory studies and a CT of the patient's brain. CBC shows a platelet count of 78. The patient has chronic thrombocytopenia. INR is elevated at 1.3. CMP shows a glucose of 128. Total bilirubin 1.5. Ammonia elevated at 69. Urinalysis shows 2+ glucose. Urine drug screen positive for tricyclic antidepressants. Salicylate is 1.8. Alcohol is negative. CT of the patient's brain demonstrates no acute findings. chest x-ray demonstrates no active cardiopulmonary disease. I discussed the results with the patient and his at bedside. I reviewed the patient's record. He has had previous altered mental status with normal ammonia levels. Patient was hospitalized and returned to baseline once placed back on rifaximin and lactulose. He was evaluated by neurology and they attribute in the change to his mental status to hepatic encephalopathy. Because of this I called and discussed the case with Dr. Sinha. She does accept admission for the patient. I gave the patient a dose of lactulose while in the ER. I did start his home medications. Patient was then transferred to the floor in stable condition - Lab Data Result diagrams: 11/27/19 07:12 11/27/19 07:12 Lab Results 11/24/19 11/24/19 11/24/19 Range/Units 16:46 16:46 16:46 WBC 4.4 (3.8-10.6) k/uL RBC 4.04 L (4.30-5.90) m/uL Hgb 13.0 (13.0-17.5) gm/dL Hct 38.1 L (39.0-53.0) % MCV 94.2 (80.0-100.0) fL MCH 32.2 (25.0-35.0) pg MCHC 34.2 (31.0-37.0) g/dL RDW 13.6 (11.5-15.5) % Plt Count 78 L (150-450) k/uL Neutrophils % 67 % Lymphocytes % 20 % Monocytes % 5 % Eosinophils % 4 % Basophils % 1 % Neutrophils # 2.9 (1.3-7.7) k/uL Lymphocytes # 0.9 L (1.0-4.8) k/uL Monocytes # 0.2 (0-1.0) k/uL Eosinophils # 0.2 (0-0.7) k/uL Basophils # 0.0 (0-0.2) k/uL Manual Slide Review Performed PT 13.3 H (9.0-12.0) sec INR 1.3 H (<1.2) APTT 29.3 (22.0-30.0) sec Sodium 141 (137-145) mmol/L Potassium 4.2 (3.5-5.1) mmol/L Chloride 116 H (98-107) mmol/L Carbon Dioxide 21 L (22-30) mmol/L Anion Gap 4 mmol/L BUN 13 (9-20) mg/dL Creatinine 0.98 (0.66-1.25) mg/dL Est GFR (CKD-EPI)AfAm >90 (>60 ml/min/1.73 sqM) Est GFR (CKD-EPI)NonAf 84 (>60 ml/min/1.73 sqM) Glucose 128 H (74-99) mg/dL Calcium 8.9 (8.4-10.2) mg/dL Total Bilirubin 1.5 H (0.2-1.3) mg/dL AST 45 (17-59) U/L ALT 21 (4-49) U/L Alkaline Phosphatase 103 (38-126) U/L Ammonia (<30) umol/L Creatine Kinase 70 (55-170) U/L Troponin I (0.000-0.034) ng/mL Total Protein 7.0 (6.3-8.2) g/dL Albumin 3.3 L (3.5-5.0) g/dL TSH (0.465-4.680) mIU/L Urine Color Urine Appearance (Clear) Urine pH (5.0-8.0) Ur Specific [place] (1.001-1.035) Urine Protein (Negative) Urine Glucose (UA) (Negative) Urine Ketones (Negative) Urine Blood (Negative) Urine Nitrite (Negative) Urine Bilirubin (Negative) Urine Urobilinogen (<2.0) mg/dL Ur Leukocyte Esterase (Negative) Salicylates 1.1 mg/dL Urine Opiates Screen (NotDetected) Ur Oxycodone Screen (NotDetected) Urine Methadone Screen (NotDetected) Ur Propoxyphene Screen (NotDetected) Acetaminophen <10.0 ug/mL Ur Barbiturates Screen (NotDetected) U Tricyclic Antidepress (NotDetected) Ur Phencyclidine Scrn (NotDetected) Ur Amphetamines Screen (NotDetected) U Methamphetamines Scrn (NotDetected) U Benzodiazepines Scrn (NotDetected) Urine Cocaine Screen (NotDetected) U Marijuana (THC) Screen (NotDetected) Serum Alcohol <10 mg/dL 11/24/19 11/24/19 11/24/19 Range/Units 16:46 16:46 16:46 WBC (3.8-10.6) k/uL RBC (4.30-5.90) m/uL Hgb (13.0-17.5) gm/dL Hct (39.0-53.0) % MCV (80.0-100.0) fL MCH (25.0-35.0) pg MCHC (31.0-37.0) g/dL RDW (11.5-15.5) % Plt Count (150-450) k/uL Neutrophils % % Lymphocytes % % Monocytes % % Eosinophils % % Basophils % % Neutrophils # (1.3-7.7) k/uL Lymphocytes # (1.0-4.8) k/uL Monocytes # (0-1.0) k/uL Eosinophils # (0-0.7) k/uL Basophils # (0-0.2) k/uL Manual Slide Review PT (9.0-12.0) sec INR (<1.2) APTT (22.0-30.0) sec Sodium (137-145) mmol/L Potassium (3.5-5.1) mmol/L Chloride (98-107) mmol/L Carbon Dioxide (22-30) mmol/L Anion Gap mmol/L BUN (9-20) mg/dL Creatinine (0.66-1.25) mg/dL Est GFR (CKD-EPI)AfAm (>60 ml/min/1.73 sqM) Est GFR (CKD-EPI)NonAf (>60 ml/min/1.73 sqM) Glucose (74-99) mg/dL Calcium (8.4-10.2) mg/dL Total Bilirubin (0.2-1.3) mg/dL AST (17-59) U/L ALT (4-49) U/L Alkaline Phosphatase (38-126) U/L Ammonia 69 H (<30) umol/L Creatine Kinase (55-170) U/L Troponin I <0.012 (0.000-0.034) ng/mL Total Protein (6.3-8.2) g/dL Albumin (3.5-5.0) g/dL TSH 0.959 (0.465-4.680) mIU/L Urine Color Urine Appearance (Clear) Urine pH (5.0-8.0) Ur Specific [place] (1.001-1.035) Urine Protein (Negative) Urine Glucose (UA) (Negative) Urine Ketones (Negative) Urine Blood (Negative) Urine Nitrite (Negative) Urine Bilirubin (Negative) Urine Urobilinogen (<2.0) mg/dL Ur Leukocyte Esterase (Negative) Salicylates mg/dL Urine Opiates Screen (NotDetected) Ur Oxycodone Screen (NotDetected) Urine Methadone Screen (NotDetected) Ur Propoxyphene Screen (NotDetected) Acetaminophen ug/mL Ur Barbiturates Screen (NotDetected) U Tricyclic Antidepress (NotDetected) Ur Phencyclidine Scrn (NotDetected) Ur Amphetamines Screen (NotDetected) U Methamphetamines Scrn (NotDetected) U Benzodiazepines Scrn (NotDetected) Urine Cocaine Screen (NotDetected) U Marijuana (THC) Screen (NotDetected) Serum Alcohol mg/dL 11/24/19 Range/Units 17:54 WBC (3.8-10.6) k/uL RBC (4.30-5.90) m/uL Hgb (13.0-17.5) gm/dL Hct (39.0-53.0) % MCV (80.0-100.0) fL MCH (25.0-35.0) pg MCHC (31.0-37.0) g/dL RDW (11.5-15.5) % Plt Count (150-450) k/uL Neutrophils % % Lymphocytes % % Monocytes % % Eosinophils % % Basophils % % Neutrophils # (1.3-7.7) k/uL Lymphocytes # (1.0-4.8) k/uL Monocytes # (0-1.0) k/uL Eosinophils # (0-0.7) k/uL Basophils # (0-0.2) k/uL Manual Slide Review PT (9.0-12.0) sec INR (<1.2) APTT (22.0-30.0) sec Sodium (137-145) mmol/L Potassium (3.5-5.1) mmol/L Chloride (98-107) mmol/L Carbon Dioxide (22-30) mmol/L Anion Gap mmol/L BUN (9-20) mg/dL Creatinine (0.66-1.25) mg/dL Est GFR (CKD-EPI)AfAm (>60 ml/min/1.73 sqM) Est GFR (CKD-EPI)NonAf (>60 ml/min/1.73 sqM) Glucose (74-99) mg/dL Calcium (8.4-10.2) mg/dL Total Bilirubin (0.2-1.3) mg/dL AST (17-59) U/L ALT (4-49) U/L Alkaline Phosphatase (38-126) U/L Ammonia (<30) umol/L Creatine Kinase (55-170) U/L Troponin I (0.000-0.034) ng/mL Total Protein (6.3-8.2) g/dL Albumin (3.5-5.0) g/dL TSH (0.465-4.680) mIU/L Urine Color Yellow Urine Appearance Clear (Clear) Urine pH 8.0 (5.0-8.0) Ur Specific [place] 1.020 (1.001-1.035) Urine Protein Trace H (Negative) Urine Glucose (UA) 2+ H (Negative) Urine Ketones Negative (Negative) Urine Blood Negative (Negative) Urine Nitrite Negative (Negative) Urine Bilirubin Negative (Negative) Urine Urobilinogen <2.0 (<2.0) mg/dL Ur Leukocyte Esterase Negative (Negative) Salicylates mg/dL Urine Opiates Screen Not Detected (NotDetected) Ur Oxycodone Screen Not Detected (NotDetected) Urine Methadone Screen Not Detected (NotDetected) Ur Propoxyphene Screen Not Detected (NotDetected) Acetaminophen ug/mL Ur Barbiturates Screen Not Detected (NotDetected) U Tricyclic Antidepress Detected H (NotDetected) Ur Phencyclidine Scrn Not Detected (NotDetected) Ur Amphetamines Screen Not Detected (NotDetected) U Methamphetamines Scrn Not Detected (NotDetected) U Benzodiazepines Scrn Not Detected (NotDetected) Urine Cocaine Screen Not Detected (NotDetected) U Marijuana (THC) Screen Not Detected (NotDetected) Serum Alcohol mg/dL - EKG Data EKG Comments: EKG demonstrates a normal sinus rhythm with a ventricular rate of 76. MI interval is 148. QRS 86. QTC of 456. No acute ST segment elevations or depressions concerning for ischemic changes Disposition Clinical Impression: Altered mental status, Hepatic encephalopathy, Chronic liver disease, Coagulopathy, Hyperammonemia Disposition: ADMITTED IP TO THIS [facility] Condition: Serious Is patient prescribed a controlled substance at d/c from ED?: No Decision to Admit Reason: Admit from EC Decision Date: 11/24/19 Decision Time: 19:17
[2019-11-24 17:19] LABS: Platelet Count 78 k/uL (150-450)
[2019-11-24 17:26] LABS: INR 1.3 (<1.2); Partial Thromboplastin Time 29.3 sec (22.0-30.0); Prothrombin Time 13.3 sec (9.0-12.0)
[2019-11-24 17:38] LABS: ALT 21 U/L (4-49); AST 45 U/L (17-59); Acetaminophen <10.0 ug/mL; African American GFR (CKD) >90 (>60 ml/min/1.73 sqM); Albumin 3.3 g/dL (3.5-5.0); Alcohol <10 mg/dL; Alkaline Phosphatase 103 U/L (38-126); Anion Gap 4 mmol/L; Blood Urea Nitrogen 13 mg/dL (9-20); Calcium 8.9 mg/dL (8.4-10.2); Carbon Dioxide 21 mmol/L (22-30); Chloride 116 mmol/L (98-107); Creatine Kinase 70 U/L (55-170); Glucose 128 mg/dL (74-99); Non-African American GFR(CKD) 84 (>60 ml/min/1.73 sqM); Potassium 4.2 mmol/L (3.5-5.1); Salicylate 1.1 mg/dL; Sodium 141 mmol/L (137-145); Total Bilirubin 1.5 mg/dL (0.2-1.3)
--- NOTE | 2019-11-24 17:57 | CT ---
EXAMINATION TYPE: CT brain wo con DATE OF EXAM: 11/24/2019 COMPARISON: None HISTORY: Altered mental status CT DLP: mGycm Automated exposure control for dose reduction was used. Ventricles have normal size. There is no mass effect nor midline shift. There is no sign of intracran ial hemorrhage. There is no evidence of cerebral edema. Calvarium is intact. IMPRESSION: Negative CT scan of the brain. No significant change.
--- NOTE | 2019-11-24 17:59 | XR ---
EXAMINATION TYPE: XR chest 2V DATE OF EXAM: 11/24/2019 COMPARISON: 09/14/2019 HISTORY: Altered mental status TECHNIQUE: 2 views FINDINGS: Heart and mediastinum are normal. Lungs are clear of consolidation. Costophrenic angles are clear. There are chest leads. Bony thorax is intact. IMPRESSION: No active cardiopulmonary disease. Inspiration decreased slightly compared to last exam.
[2019-11-24 18:05] LABS: Appearance,Urine Clear (Clear); Bilirubin,Urine Negative (Negative); Blood,Urine Negative (Negative); Color,Urine Yellow; Glucose,Urine (UA) 2+ (Negative); Ketones,Urine Negative (Negative); Leukocyte Esterase,Urine Negative (Negative); Nitrite,Urine Negative (Negative); Protein,Urine Trace (Negative); Urobilinogen,Urine <2.0 mg/dL (<2.0)
[2019-11-24] MEDS ORDERED: LACTULOSE 20 GM/30 ML CUP PO ONE (18:17)
[2019-11-24 18:20] LABS: Amphetamine Screen,Urine Not Detected (NotDetected); Barbiturate Screen,Urine Not Detected (NotDetected); Benzodiazepines Screen,Urine Not Detected (NotDetected); Cocaine Screen,Urine Not Detected (NotDetected); Methadone Screen, Urine Not Detected (NotDetected); Opiate Screen,Urine Not Detected (NotDetected); Oxycodone Screen, Urine Not Detected (NotDetected); Phencyclidine Screen,Urine Not Detected (NotDetected); Tricyclic Antidepressant,Urine Detected (NotDetected); Urn Cannabinoid Scrn Not Detected (NotDetected)
[2019-11-24] MEDS ORDERED: NALOXONE 0.4 MG/ML 1 ML VIAL IV PRN (19:09)
[2019-11-24] MEDS: SODIUM CHLORIDE 0.9% 1,000 ML IV SCH (19:43)
[2019-11-24 21:02] LABS: Glucose,Whole Blood 164 mg/dL (75-99)
[2019-11-24] MEDS: INSULIN DETEMIR (LEVEMIR) 100 UNIT/ML SYR SQ SCH (22:19)
[2019-11-24] MEDS: RIFAXIMIN 550 MG TABLET PO SCH (22:19)
[2019-11-24] MEDS: MAGNESIUM OXIDE 400 MG TAB PO SCH (22:19)
[2019-11-25] MEDS: LACTULOSE 20 GM/30 ML CUP PO PRN ×3 (00:42→15:44)
[2019-11-25] MEDS ORDERED: NITROGLYCERIN SL TABS 0.4 MG TAB SUBLINGUAL PRN (01:30)
[2019-11-25] MEDS ORDERED: ALBUTEROL NEBULIZED 2.5 MG/3 ML INHALATION PRN (04:00)
[2019-11-25] MEDS: LEVOTHYROXINE 75 MCG TAB PO SCH (05:03)
[2019-11-25] MEDS: SODIUM CHLORIDE 0.9% 1,000 ML IV SCH ×2 (05:08→15:43)
[2019-11-25 07:32] LABS: Basophils % (A) 1 %; Eosinophils # (A) 0.2 k/uL (0-0.7); Eosinophils % (A) 4 %; HCT 38.8 % (39.0-53.0); HGB 12.4 gm/dL (13.0-17.5); Lymphocytes # (A) 0.9 k/uL (1.0-4.8); Lymphocytes % (A) 21 %; MCH 30.8 pg (25.0-35.0); MCHC 32.1 g/dL (31.0-37.0); MCV 95.9 fL (80.0-100.0); Mean Platelet Volume 9.2; Monocytes # (A) 0.3 k/uL (0-1.0); Monocytes % (A) 8 %; Neutrophils # (A) 2.8 k/uL (1.3-7.7); Neutrophils % (A) 63 %; RBC 4.04 m/uL (4.30-5.90); RDW 13.8 % (11.5-15.5); WBC 4.5 k/uL (3.8-10.6)
[2019-11-25 07:49] LABS: ALT 19 U/L (4-49); AST 41 U/L (17-59); African American GFR (CKD) >90 (>60 ml/min/1.73 sqM); Albumin 3.1 g/dL (3.5-5.0); Alkaline Phosphatase 91 U/L (38-126); Anion Gap 7 mmol/L; Blood Urea Nitrogen 16 mg/dL (9-20); Calcium 8.3 mg/dL (8.4-10.2); Carbon Dioxide 20 mmol/L (22-30); Chloride 116 mmol/L (98-107); Glucose 140 mg/dL (74-99); Non-African American GFR(CKD) 86 (>60 ml/min/1.73 sqM); Platelet Count 79 k/uL (150-450); Sodium 143 mmol/L (137-145); Total Bilirubin 1.8 mg/dL (0.2-1.3); Total Protein 6.7 g/dL (6.3-8.2)
[2019-11-25] MEDS: RIFAXIMIN 550 MG TABLET PO SCH ×2 (08:33→21:52)
[2019-11-25] MEDS: NICOTINE 21MG/24HR PATCH TRANSDERM SCH (08:33)
[2019-11-25] MEDS: MAGNESIUM OXIDE 400 MG TAB PO SCH ×2 (08:33→21:52)
[2019-11-25] MEDS: ATORVASTATIN 10 MG TAB PO SCH (08:33)
[2019-11-25] MEDS: FUROSEMIDE 20 MG TAB PO SCH (08:33)
[2019-11-25] MEDS: MULTIVITAMINS, THERA 1 EACH TAB PO SCH (08:33)
[2019-11-25] MEDS: CHOLECALCIFEROL 1,000 UNIT TAB PO SCH (08:33)
[2019-11-25] MEDS: LISINOPRIL 10 MG TAB PO SCH (08:33)
[2019-11-25] MEDS ORDERED: LACTULOSE 20 GM/30 ML CUP PO SCH (09:00)
--- NOTE | 2019-11-25 09:24 | HP ---
HISTORY AND PHYSICAL DATE OF SERVICE: 11/24/2019 CHIEF COMPLAINT: Change in mental status. HISTORY OF PRESENT ILLNESS: This 59-year-old gentleman with a past medical history of multiple medical problems, alcoholic liver disease, cirrhosis of the liver, hepatic encephalopathy, chronic thrombocytopenia, hypertension, history of CVA, TIA, being followed by [facility] in the outpatient setting was apparently not very compliant with taking lactulose. The patient apparently had an argument with one of the family members and stopped taking lactulose. In any case, the patient was getting progressively confused. Patient came to [facility] and ammonia level was found to be 169. Patient admitted for further evaluation and treatment. There is no history of fever, rigors or chills. No history of headache, loss of consciousness or seizures. No chest pain. No palpitations. Alcohol level was less than 10. PAST MEDICAL HISTORY: History of COPD, CVA, TIA, diabetes mellitus, hypertension, hyperlipidemia, history of liver disease, hypothyroidism. MEDICATIONS: Prior to admission include home medications are: 1. Rifaximin 550 mg p.o. b.i.d. 2. Seroquel 200 mg q.h.s. 3. Actos 50 mg p.o. daily. 4. Nitrostat 0.3 q.5h p.r.n. 5. Habitrol 14 daily. 6. Multivitamins 1 p.o. daily. 7. Magnesium oxide 400 mg p.o. b.i.d. 8. Zestril 10 mg p.o. daily. 9. Levothyroxine 150 mcg p.o. daily. 10.Cephulac 20 g p.o. q.i.d. 11.Basaglar 20 units subcu q.h.s., 25 units subcu q.h.s. 12.Lasix 20 mg p.o. daily. 13.Iron 320 mg Wednesday, Wednesday and Wednesday. 14.Vitamin D3 5000 daily. 15.Lipitor 10 mg p.o. daily. 16.Ecotrin 81 mg. 17.Ventolin HFA 1-2 puffs q.4 p.r.n. ALLERGIES: PENICILLIN. FAMILY HISTORY: History of skin cancer in the family. SOCIAL HISTORY: Previous history of smoking. No history of current smoking or alcohol intake. REVIEW OF SYSTEMS: ENT: No diminished vision. No diminished hearing. CARDIOVASCULAR: No angina or palpitations. RESPIRATORY: As mentioned earlier. GI as mentioned earlier. no dysuria or hematuria. Nervous System: As mentioned earlier. ALLERGIES/IMMUNOLOGY: No asthmas or hayfever. MUSCULOSKELETAL System as mentioned earlier. HEMATOLOGY/ONCOLOGY: No history of anemia. ENDOCRINE: Diabetes mellitus. CONSTITUTIONAL: As mentioned earlier. DERMATOLOGY: Negative. RHEUMATOLOGY: Negative. PSYCHIATRIC: As mentioned earlier. PHYSICAL EXAM: Patient alert and oriented x2. Pulse 69. Blood pressure 166/83, respirations 16, temp 97.8, pulse ox 98% on room air. HEENT is conjunctivae normal. Neck: No JVD. CARDIOVASCULAR: S1, S2 muffled. No S3, no S4. RESPIRATORY: Breath sounds diminished in the bases. No rhonchi. No crackles. ABDOMEN is soft, obese. Flanks are dull. No mass palpable. Otherwise no mass palpable. LEGS: Bilateral leg edema. NERVOUS SYSTEM: Higher functions as mentioned earlier. Moves all 4 limbs. Mild diffuse weakness. Lymphatics: No lymph nodes palpable in the neck, axilla or groin. SKIN: No ulcer, rash or bleeding. JOINTS: No active deforming arthropathy. LABS: WBC 4.4, hemoglobin 13.3, INR 1.3, glucose 128, total bilirubin is 1.5. Other labs are noted. ASSESSMENT: 1. Change in mental status acute hepatic encephalopathy. 2. History of cirrhosis of the liver, possibly alcoholic in nature. 3. Mild coagulopathy secondary to chronic liver disease. 4. Chronic obstructive pulmonary disease. 5. Cerebrovascular accident, transient ischemic attack. 6. Diabetes mellitus type 2. 7. History of noncompliance. 8. History of hearing defect, deafness. 9. History of hypertension. 10.History of hyperlipidemia. 11.History of ETOH. 12.History of portal hypertension, esophageal varices and portal gastropathy. 13.History of nephrolithiasis. 14.History of degenerative joint disease. 15.History of bipolar depression. 16.History of nicotine dependence. 17.FULL CODE. RECOMMENDATIONS AND DISCUSSION: In this 59-year-old gentleman who presented with multiple complex medical issues, we will monitor the patient closely, continue the current medications, management and symptomatic treatment. I recommend lactulose every four 4 hours to obtain 2-3 bowel movements per day. Monitor ammonia closely. Gastroenterology has been consulted. Resume the home medications. Avoid sedatives. Continue with Xifaxan. Prognosis guarded because of multiple complex medical issues. Further recommendations to follow. See orders for details. I would also recommend empiric antibiotics also. MMODL / IJN: [id number] /
[2019-11-25] MEDS ORDERED: PANTOPRAZOLE 40 MG TABLET PO SCH (18:45)
--- NOTE | 2019-11-25 20:53 | PN ---
PROGRESS NOTE DATE OF SERVICE: 11/25/2019 This 59-year-old gentleman who was admitted with change in mental status, acute metabolic encephalopathy, hepatic encephalopathy and elevated ammonia yesterday but lactulose was initiated and ammonia is today improved to 29. The patient is still confused, slightly improved sensorium. CO2 is still low. Patient started on empiric antibiotics. Also cultures are negative so far. PAST MEDICAL HISTORY: Reviewed. REVIEW OF SYSTEMS: Review of systems could not be taken the patient is confused. CURRENT MEDICATIONS: Reviewed and include: 1. Ventolin 2.5 q.4 p.r.n. 2. Lipitor 10 mg p.o. daily. 3. Rocephin 1 g IV daily. 4. Vitamin D3 5000 daily. 5. Lasix 20 mg p.o. daily. 6. Levemir 20 units subcu q.h.s. 7. Cephulac 20 mg q.4. 8. Synthroid 150 mcg p.o. 9. Zestril 10 mg p.o. daily. 10.Magnesium oxide. 11.Multivitamins. 12.Narcan. 13.Habitrol . 14.Xifaxan. 15.Flomax 0.4 daily. PHYSICAL EXAMINATION: Patient is alert, oriented times one. Pulse 98, blood pressure 182/80, respiration 18, temperature 98.2, pulse ox 94% on room air. HEENT: Conjunctivae normal. NECK: No JVD. CARDIOVASCULAR: S1, S2 muffled. RESPIRATIONS: Breath sounds diminished in the bases. A few scattered rhonchi. ABDOMEN: Soft, obese, nontender. Minimal ascites. LEGS bilateral leg edema. NERVOUS SYSTEM: Diffusely weak. LABS: WBC 4.2, hemoglobin 12.4, otherwise glucose 140. Other labs are noted and total bilirubin is 1.8. Albumin is 3.1 ASSESSMENT: 1. Change in mental status, acute on chronic hepatic encephalopathy. 2. History of cirrhosis of liver, possibly alcoholic liver disease. 3. Mild coagulopathy secondary to chronic liver disease. 4. Chronic obstructive pulmonary disease. 5. Cerebrovascular accident, transient ischemic attack. 6. Diabetes mellitus type 2. 7. History of noncompliance. 8. Hearing defects and deafness. 9. History of hypertension. 10.History of hyperlipidemia. 11.History EtOH. 12.History of portal hypertension. 13.Esophageal varices and portal gastropathy. 14.History of nephrolithiasis. 15.History of degenerative joint disease. 16.History of bipolar depression. 17.History of nicotine dependence. 18.FULL CODE. 19.Thrombocytopenia and anemia with bicytopenia, possibly secondary to cirrhosis of the liver. RECOMMENDATIONS AND DISCUSSION: This 59-year-old gentleman with a past medical history of multiple medical problems, at this time, I recommend to continue current management. Continue symptomatic treatment. Continue with lactulose to ensure 2-3 bowel movements per day. Continue with Xifaxan. Continue with empiric antibiotics. Will cut down the IV fluids and otherwise monitor blood sugars closely, Accu-Cheks a.c. and at bedtime. Resume the home medications. Prognosis guarded because of multiple complex medical issues. Further recommendations to follow. See orders for details. MMODL / IJN: [id number] /
[2019-11-25 21:30] LABS: Glucose,Whole Blood 148 mg/dL (75-99)
[2019-11-25] MEDS: INSULIN DETEMIR (LEVEMIR) 100 UNIT/ML SYR SQ SCH (21:52)
[2019-11-25] MEDS: INSULIN ASPART (NovoLOG) 100 UNIT/ML VIAL SQ SCH (21:52)
--- NOTE | 2019-11-25 22:25 | P.CONS ---
History of Present Illness - Reason for Consult Consult date: 11/25/19 Hepatic encephalopathy, decompensated cirrhosis Requesting physician: Jreman Forte - Chief Complaint Altered mental status - History of Present Illness 59-year-old male with a known medical history of decompensated alcoholic cirrhosis with hepatic encephalopathy and esophageal varices, portal hypertensive gastropathy, hypertension, history of CVA/TIA who presents to the hospital for complaints of altered mental status. Of note history has been taken in discussion with the patient in on review of the electronic medical record. Patient was brought to the hospital by family members due to concerns over confusion. Patient has a known history of encephalopathy treated with lactulose and rifaximin therapy. The patient has been noncompliant with medications at home and subsequently had increased confusion. On presentation to the hospital ammonia level was found to be elevated at 169. No reported fevers, chills, signs or symptoms of GI bleed. Last EGD on record in 03/2017 with findings of gastric and esophageal varices and portal hypertensive gastr opathy. Review of Systems REVIEW OF SYSTEMS: CONSTITUTIONAL: Denies any fevers, chills, weight change or fatigue. CARDIOVASCULAR: Denies any chest pain, palpitations high or low blood pressures RESPIRATORY: Denies any shortness of breath, hemoptysis or cough. GENITOURINARY: No dysuria or hematuria. MUSCULOSKELETAL: No weakness reported. SKIN: Denies any new rashes or lesions, jaundice or pallor. PSYCHIATRIC: Denies any depression or anxiety. NEUROLOGY: Denies headache, denies any new focal deficits, confusion reported on presentation. EARS/NOSE/THROAT: No recent hearing change, congestion, nasal discharge or sore throat. EYES: No pain in eyes, discharge or change in vision. GASTROINTESTINAL: As per HPI. Past Medical History Past Medical History: COPD, CVA/TIA, Diabetes Mellitus, Hearing Disorder / Deafness, Hyperlipidemia, Hypertension, Liver Disease, Thyroid Disorder Additional Past Medical History / Comment(s): Pt recently admitted to [facility] on 08/05/18 with acute hepatic encephalopathy/increased ammonia levels. Other hx: Alcoholism, alcoholic liver cirrhosis, history of hepatic encephalopathy, portal hypertension and esophageal varices and portal hypertensive gastropathy, significant other states pt has not drank alcohol since March 2018, CVA, kidney stones, hypothyroidism, L ear deafness. 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, [place] Past Anesthesia/Blood Transfusion Reactions: No Reported Reaction Additional Past Anesthesia/Blood Transfusion Reaction / Comm: blood trandfusion - no known reaction Past Psychological History: Bipolar, Depression Smoking Status: Former smoker Past Alcohol Use History: None Reported Past Drug Use History: None Reported - Past Family History Mother Family Medical History: Cancer Additional Family Medical History / Comment(s): skin cancer Father History Unknown: Yes Additional Family Medical History / Comment(s): pt was raised buy his step dad. Medications and Allergies Home Medications Medication Instructions Recorded Confirmed Type Furosemide [Lasix] 20 mg PO DAILY 08/05/18 11/24/19 History Cholecalciferol [Vitamin D3 (25 5,000 unit PO DAILY 08/18/18 11/24/19 History Mcg = 1000 Iu)] Ferrous Sulfate [Iron (65 MG 325 mg PO MOWEFR 08/18/18 11/24/19 History Elemental)] Levothyroxine Sodium 150 mcg PO DAILY #30 tablet 08/19/18 11/24/19 Rx Atorvastatin Calcium [Lipitor] 10 mg PO DAILY 09/14/19 11/24/19 History Lisinopril [Zestril] 10 mg PO DAILY 09/14/19 11/24/19 History Magnesium Oxide [Mag-Ox] 400 mg PO BID 09/14/19 11/24/19 History Multivitamins, Thera [Multivitamin 1 tab PO DAILY 09/14/19 11/24/19 History (formulary)] Nicotine 21Mg/24Hr Patch [Habitrol] 1 patch TRANSDERM DAILY 09/14/19 11/24/19 History Rifaximin [Xifaxan] 550 mg PO BID 09/14/19 11/24/19 History Insulin Glargine,Hum.rec.anlog 20 units SQ HS #0 09/16/19 11/24/19 Rx [Basaglar Kwikpen U-100] Albuterol Inhaler [Ventolin Hfa 1 - 2 puff INHALATION RT-Q4H PRN 11/24/19 11/24/19 History Inhaler] Aspirin EC [Ecotrin Low Dose] 81 mg PO DAILY 11/24/19 11/24/19 History Insulin Glargine,Hum.rec.anlog 25 unit SQ HS 11/24/19 11/24/19 History [Basaglar Kwikpen U-100] Lactulose [Cephulac] 20 gm PO QID 11/24/19 11/24/19 History Nitrostat 0.3mg 0.3 mg SL Q5M PRN 11/24/19 11/24/19 History Pioglitazone [Actos] 15 mg PO DAILY 11/24/19 11/24/19 History QUEtiapine XR [SEROquel XR] 200 mg PO HS 11/24/19 11/24/19 History Allergies Allergy/AdvReac Type Severity Reaction Status Date / Time Penicillins Allergy Unknown Verified 09/14/19 18:00 Childhood Physical Exam Vitals: Vital Signs Temp Pulse Pulse Resp BP BP Pulse Ox 11/25/19 07:00 98.4 F 82 12 162/65 96 11/25/19 03:00 16 11/25/19 01:57 98.2 F 81 16 165/72 97 11/25/19 00:42 16 11/24/19 20:09 97.8 F 69 16 166/83 99 11/24/19 19:44 75 18 163/65 97 11/24/19 19:00 82 18 161/67 98 11/24/19 18:21 77 18 157/74 99 11/24/19 16:42 98.7 F 82 18 187/78 99 Intake and Output 11/24/19 11/25/19 11/25/19 22:59 06:59 14:59 Output Total 650 1472 Balance -650 -1472 Output: Urine 650 300 Straight 650 Post Void Residual 1172 Other: Weight 99.79 kg On physical examination, patient appears comfortable in no apparent distress. HEAD: Normocephalic, atraumatic. EYES: No scleral icterus. No conjunctival injection. MOUTH: No lesions, tongue midline. NECK: Trachea midline, no gross abnormalities. CHEST: Clear to auscultation with no wheezing or rhonchi appreciated. HEART: Regular rate and rhythm. ABDOMEN: Soft, obese. Bowel sounds are positive. No organomegaly. No guarding or rigidity. EXTREMITIES: No pedal edema. SKIN: No rashes, no jaundice. NEUROLOGIC: Alert and oriented to person. No asterixis on exam. No focal deficits. Results CBC & Chem 7: 11/25/19 07:00 11/25/19 07:00 Labs: Abnormal Lab Results - Last 24 Hours (Table) 11/24/19 11/24/19 11/24/19 Range/Units 16:46 16:46 16:46 RBC 4.04 L (4.30-5.90) m/uL Hgb (13.0-17.5) gm/dL Hct 38.1 L (39.0-53.0) % Plt Count 78 L (150-450) k/uL Lymphocytes # 0.9 L (1.0-4.8) k/uL PT 13.3 H (9.0-12.0) sec INR 1.3 H (<1.2) Chloride 116 H (98-107) mmol/L Carbon Dioxide 21 L (22-30) mmol/L Glucose 128 H (74-99) mg/dL POC Glucose (mg/dL) (75-99) mg/dL Calcium (8.4-10.2) mg/dL Total Bilirubin 1.5 H (0.2-1.3) mg/dL Ammonia (<30) umol/L Albumin 3.3 L (3.5-5.0) g/dL Urine Protein (Negative) Urine Glucose (UA) (Negative) U Tricyclic Antidepress (NotDetected) 11/24/19 11/24/19 11/24/19 Range/Units 16:46 17:54 21:00 RBC (4.30-5.90) m/uL Hgb (13.0-17.5) gm/dL Hct (39.0-53.0) % Plt Count (150-450) k/uL Lymphocytes # (1.0-4.8) k/uL PT (9.0-12.0) sec INR (<1.2) Chloride (98-107) mmol/L Carbon Dioxide (22-30) mmol/L Glucose (74-99) mg/dL POC Glucose (mg/dL) 164 H (75-99) mg/dL Calcium (8.4-10.2) mg/dL Total Bilirubin (0.2-1.3) mg/dL Ammonia 69 H (<30) umol/L Albumin (3.5-5.0) g/dL Urine Protein Trace H (Negative) Urine Glucose (UA) 2+ H (Negative) U Tricyclic Antidepress Detected H (NotDetected) 11/25/19 11/25/19 Range/Units 07:00 07:00 RBC 4.04 L (4.30-5.90) m/uL Hgb 12.4 L (13.0-17.5) gm/dL Hct 38.8 L (39.0-53.0) % Plt Count 79 L (150-450) k/uL Lymphocytes # 0.9 L (1.0-4.8) k/uL PT (9.0-12.0) sec INR (<1.2) Chloride 116 H (98-107) mmol/L Carbon Dioxide 20 L (22-30) mmol/L Glucose 140 H (74-99) mg/dL POC Glucose (mg/dL) (75-99) mg/dL Calcium 8.3 L (8.4-10.2) mg/dL Total Bilirubin 1.8 H (0.2-1.3) mg/dL Ammonia (<30) umol/L Albumin 3.1 L (3.5-5.0) g/dL Urine Protein (Negative) Urine Glucose (UA) (Negative) U Tricyclic Antidepress (NotDetected) Chest x-ray: report reviewed (No cardiopulmonary disease noted on x-ray of the chest) Assessment and Plan (1) Altered mental status Narrative/Plan: 59-year-old male with a known history of decompensated alcohol cirrhosis or which she is currently abstinent from alcohol, who presented to the hospital due to confusion and altered mental status. History from the patient's family was of noncompliance with his medications at home for which she is on lactulose and rifaximin therapy for treatment of hepatic encephalopathy. Subsequently patient became increasingly confused and presents to the hospital for further evaluation. Patient also has a known history of prior variceal bleed with esophageal and gastric varices noted on EGD in 03/2017 as well as portal hypertensive gastropathy. No signs or symptoms of GI bleeding at this time. Current Visit: Yes Status: Acute Code(s): R41.82 - ALTERED MENTAL STATUS, UNSPECIFIED SNOMED Code(s): 945954399 (2) Chronic liver disease Current Visit: Yes Status: Acute Code(s): K76.9 - LIVER DISEASE, UNSPECIFIED SNOMED Code(s): 840112636 (3) Hepatic encephalopathy Current Visit: Yes Status: Acute Code(s): K72.90 - HEPATIC FAILURE, UNSPECIFIED WITHOUT COMA SNOMED Code(s): 98824403 (4) Hyperammonemia Current Visit: Yes Status: Acute Code(s): E72.20 - DISORDER OF UREA CYCLE METABOLISM, UNSPECIFIED SNOMED Code(s): 3823251 (5) Esophageal varices Current Visit: No Status: Acute Code(s): I85.00 - ESOPHAGEAL VARICES WITHOUT BLEEDING SNOMED Code(s): 96038732 Plan: Supportive care Okay for sodium short diet Continue lactulose, titrate for 2-3 bowel movements daily Continue rifaximin 550 mg twice a day Continue to monitor clinically Continue alcohol abstinence Continue Lasix therapy Thank you for allowing us dysphagia in the care of the patient we will continue to follow
[2019-11-26] MEDS: PANTOPRAZOLE 40 MG/10 ML VIAL IVP SCH ×3 (00:54→22:08)
[2019-11-26] MEDS: ONDANSETRON 4 MG/2 ML VIAL IVP PRN ×2 (00:54→05:58)
[2019-11-26] MEDS: SODIUM CHLORIDE 0.9% 1,000 ML IV SCH ×3 (03:00→16:09)
[2019-11-26] MEDS: LEVOTHYROXINE 75 MCG TAB PO SCH (05:07)
[2019-11-26] MEDS: CHOLECALCIFEROL 1,000 UNIT TAB PO SCH (07:41)
[2019-11-26] MEDS: MULTIVITAMINS, THERA 1 EACH TAB PO SCH (07:41)
[2019-11-26] MEDS: RIFAXIMIN 550 MG TABLET PO SCH ×2 (07:41→22:09)
[2019-11-26] MEDS: FUROSEMIDE 20 MG TAB PO SCH (07:42)
[2019-11-26] MEDS: NICOTINE 21MG/24HR PATCH TRANSDERM SCH (07:42)
[2019-11-26] MEDS: INSULIN ASPART (NovoLOG) 100 UNIT/ML VIAL SQ SCH ×4 (07:42→22:09)
[2019-11-26] MEDS: TAMSULOSIN 0.4 MG CAP.ER.24H PO SCH (07:42)
[2019-11-26] MEDS: MAGNESIUM OXIDE 400 MG TAB PO SCH ×2 (07:42→22:09)
[2019-11-26] MEDS: ATORVASTATIN 10 MG TAB PO SCH (07:42)
[2019-11-26] MEDS: LISINOPRIL 10 MG TAB PO SCH (07:42)
[2019-11-26 07:47] LABS: Basophils % (A) 0 %; Eosinophils # (A) 0.1 k/uL (0-0.7); Eosinophils % (A) 2 %; HCT 36.2 % (39.0-53.0); HGB 12.5 gm/dL (13.0-17.5); Lymphocytes # (A) 0.8 k/uL (1.0-4.8); Lymphocytes % (A) 16 %; MCH 32.2 pg (25.0-35.0); MCHC 34.4 g/dL (31.0-37.0); MCV 93.6 fL (80.0-100.0); Mean Platelet Volume 9.2; Monocytes # (A) 0.4 k/uL (0-1.0); Monocytes % (A) 8 %; Neutrophils # (A) 3.5 k/uL (1.3-7.7); Neutrophils % (A) 71 %; RBC 3.87 m/uL (4.30-5.90); RDW 13.5 % (11.5-15.5); WBC 4.9 k/uL (3.8-10.6)
[2019-11-26 08:07] LABS: African American GFR (CKD) >90 (>60 ml/min/1.73 sqM); Anion Gap 5 mmol/L; Blood Urea Nitrogen 14 mg/dL (9-20); Calcium 8.6 mg/dL (8.4-10.2); Carbon Dioxide 23 mmol/L (22-30); Chloride 111 mmol/L (98-107); Glucose 133 mg/dL (74-99); Non-African American GFR(CKD) 90 (>60 ml/min/1.73 sqM); Potassium 4.3 mmol/L (3.5-5.1); Sodium 139 mmol/L (137-145)
[2019-11-26 08:12] LABS: Platelet Count 76 k/uL (150-450)
[2019-11-26] MEDS: THIAMINE 100 MG TAB PO SCH (11:38)
[2019-11-26] MEDS: FOLIC ACID 1 MG TAB PO SCH (11:38)
[2019-11-26 11:43] LABS: Glucose,Whole Blood 135 mg/dL (75-99)
[2019-11-26] MEDS: LACTULOSE 20 GM/30 ML CUP PO PRN (16:12)
[2019-11-26 16:58] LABS: Glucose,Whole Blood 160 mg/dL (75-99)
[2019-11-26 20:15] LABS: Glucose,Whole Blood 135 mg/dL (75-99)
[2019-11-26] MEDS: INSULIN DETEMIR (LEVEMIR) 100 UNIT/ML SYR SQ SCH (22:09)
--- NOTE | 2019-11-26 22:38 | PN ---
PROGRESS NOTE DATE OF SERVICE: 11/26/2019. This 59-year-old gentleman was admitted with change in mental status, acute hepatic encephalopathy, is being closely monitored. No chest pain. No palpitations. No fever. The patient is much more alert. PHYSICAL EXAM: Pulse 81, blood pressure 185/69, respiration 17, temperature is 98.2, pulse ox 98% on room air. HEENT: Conjunctivae normal. Oral mucosa moist. NECK: No jugular venous distention. No lymph node enlargement. CARDIOVASCULAR: S1, S2. RESPIRATORY: Diminished breath sounds at the bases. Scattered rhonchi and crackles. ABDOMEN: Soft, obese, nontender. LEGS: No edema, no swelling. NERVOUS SYSTEM: No focal deficits. LABS: WBC 4.2, hemoglobin 12.5. Ammonia is 22. ASSESSMENT: 1. Change in mental status, acute hepatic encephalopathy with acute metabolic encephalopathy. 2. History of cirrhosis of the liver, possibly alcoholic liver disease. 3. Mild coagulopathy secondary to chronic liver disease. 4. Hypertension. 5. Chronic obstructive pulmonary disease. 6. Cerebrovascular accident, transient ischemic attack. 7. Diabetes type 2. 8. History of noncompliance. 9. History of hearing defect. 10.Hyperlipidemia. 11.History of ETOH. 12.History of portal hypertension. 13.History of esophageal varices and portal gastropathy. 14.History of nephrolithiasis. 15.History of degenerative joint disease. 16.History of bipolar depression. 17.History of nicotine dependence. 18.FULL CODE. RECOMMENDATIONS AND DISCUSSION: In this 59-year-old gentleman who presented with multiple complex medical issues, we will monitor the patient closely, continue the current management, continue symptomatic treatment. Otherwise, I recommend continue with lactulose. Repeat labs. Increase ambulation. Continue with Xifaxan. Closely follow with Gastroenterology. Guarded prognosis. Further recommendations to follow. Repeat labs have been ordered. MMODL / IJN: [id number] /
[2019-11-27 04:00] VITALS: RESP 18
[2019-11-27] MEDS: LEVOTHYROXINE 75 MCG TAB PO SCH (05:20)
[2019-11-27 06:56] LABS: Glucose,Whole Blood 101 mg/dL (75-99)
[2019-11-27] MEDS: INSULIN ASPART (NovoLOG) 100 UNIT/ML VIAL SQ SCH ×2 (07:09→11:37)
[2019-11-27 07:37] LABS: Basophils % (A) 1 %; Eosinophils # (A) 0.2 k/uL (0-0.7); Eosinophils % (A) 5 %; HCT 35.5 % (39.0-53.0); Lymphocytes # (A) 0.9 k/uL (1.0-4.8); Lymphocytes % (A) 23 %; MCH 31.7 pg (25.0-35.0); MCHC 33.9 g/dL (31.0-37.0); MCV 93.5 fL (80.0-100.0); Mean Platelet Volume 8.5; Monocytes # (A) 0.3 k/uL (0-1.0); Monocytes % (A) 9 %; Neutrophils # (A) 2.2 k/uL (1.3-7.7); Neutrophils % (A) 59 %; RDW 13.6 % (11.5-15.5); WBC 3.8 k/uL (3.8-10.6)
[2019-11-27 07:47] LABS: Platelet Count 61 k/uL (150-450)
[2019-11-27 07:49] VITALS: BP 162/76; PULSE 70; TEMP 98.1
[2019-11-27 07:54] LABS: African American GFR (CKD) >90 (>60 ml/min/1.73 sqM); Anion Gap 5 mmol/L; Blood Urea Nitrogen 13 mg/dL (9-20); Carbon Dioxide 23 mmol/L (22-30); Chloride 111 mmol/L (98-107); Glucose 100 mg/dL (74-99); Non-African American GFR(CKD) 90 (>60 ml/min/1.73 sqM); Sodium 139 mmol/L (137-145)
[2019-11-27] MEDS: PANTOPRAZOLE 40 MG/10 ML VIAL IVP SCH (09:21)
[2019-11-27] MEDS: LISINOPRIL 10 MG TAB PO SCH (09:23)
[2019-11-27] MEDS: TAMSULOSIN 0.4 MG CAP.ER.24H PO SCH (09:23)
[2019-11-27] MEDS: ATORVASTATIN 10 MG TAB PO SCH (09:23)
[2019-11-27] MEDS: MAGNESIUM OXIDE 400 MG TAB PO SCH (09:23)
[2019-11-27] MEDS: MULTIVITAMINS, THERA 1 EACH TAB PO SCH (09:23)
[2019-11-27] MEDS: NICOTINE 21MG/24HR PATCH TRANSDERM SCH (09:23)
[2019-11-27] MEDS: FUROSEMIDE 20 MG TAB PO SCH (09:23)
[2019-11-27] MEDS: RIFAXIMIN 550 MG TABLET PO SCH (09:23)
[2019-11-27] MEDS: CHOLECALCIFEROL 1,000 UNIT TAB PO SCH (09:23)
[2019-11-27] MEDS: THIAMINE 100 MG TAB PO SCH (11:25)
[2019-11-27] MEDS: FOLIC ACID 1 MG TAB PO SCH (11:25)
[2019-11-27 11:35] LABS: Glucose,Whole Blood 121 mg/dL (75-99)
--- NOTE | 2019-11-28 07:12 | DS ---
DISCHARGE SUMMARY DATE OF SERVICE: 11/27/2019 FINAL DIAGNOSES: 1. Change in mental status, acute hepatic encephalopathy with acute metabolic encephalopathy. 2. History of cirrhosis of the liver possible alcoholic liver disease. 3. Mild coagulopathy secondary to chronic liver disease. 4. Hypertension. 5. Chronic obstructive pulmonary disease. 6. Cerebrovascular accident, transient ischemic attack. 7. Diabetes mellitus type 2. 8. History of noncompliance. 9. History of hearing defect. 10.Hyperlipidemia. 11.History of EtOH. 12.History of portal hypertension. 13.History of esophageal varices and portal gastropathy. 14.History of nephrolithiasis. 15.History of degenerative joint disease. 16.History of bipolar depression. 17.History of nicotine dependence. 18.FULL CODE. DISCHARGE DISPOSITION: The patient will be discharged in stable condition with guarded prognosis. HISTORY OF PRESENT ILLNESS: This 59-year-old gentleman with past medical history of multiple medical problems admitted with acute hepatic encephalopathy and change in mental status. The ammonia was elevated up to 69. The patient had an element of noncompliance and lactulose initiated. Gastroenterology saw the patient. Patient improved significantly. On exam, vitals are stable. CARDIOVASCULAR: S1, S2 muffled. ABDOMEN: Soft. NERVOUS SYSTEM: No focal deficit. The patient will be discharged in stable condition and guarded prognosis. Diet is cardiac. Activity limited until followup. Follow up with [facility] as advised. Follow up with GI as recommended. Medications are as follows: 1. Actos 15 mg p.o. daily. 2. Lantus 25 units subcu at bedtime. 3. Ecotrin 81 mg daily. 4. Habitrol 21 daily. 5. Iron sulfate 325 mg daily. 6. Lasix 20 mg p.o. daily. 7. Lipitor 10 mg daily. 8. Magnesium oxide 400 mg b.i.d. 9. Multivitamins 1 p.o. daily. 10.Nitrostat p.r.n. 11.Seroquel XR 200 mg at bedtime. 12.Albuterol p.r.n. 13.Vitamin D3, 5000 daily. 14.Xifaxan 550 mg p.o. b.i.d. 15.Zestril 15 mg p.o. daily. 16.Lantus 20 units subcu at bedtime. 17.Cephulac 20 grams p.o. q.i.d. 18.Flomax 0.4 b.i.d. 19.Levothyroxine 150 mcg p.o. daily. Once again, the patient will be discharged in stable condition and guarded prognosis. ANIL / MICHELLE: [id number] /
== END 2019-11-27 13:58 | disposition home or self-care (01) ==
LOC: EC 16:37 → 4SSUR 19:09 → INTOOBSV 19:09 → UNDOADMIN 19:09 → UNDODISIN 11-27 13:58
PROVIDERS: ADMIT Internal Medicine; ATTEND Internal Medicine
DX: K70.40 Alcoholic hepatic failure without coma (principal); G93.41 Metabolic encephalopathy; D68.4 Acquired coagulation factor deficiency; F31.30 Bipolar disorder, current episode depressed, mild or moderate severity, unspecified; I85.00 Esophageal varices without bleeding; K76.6 Portal hypertension; D64.9 Anemia, unspecified; D69.59 Other secondary thrombocytopenia; E11.9 Type 2 diabetes mellitus without complications; E78.5 Hyperlipidemia, unspecified; I10 Essential (primary) hypertension; J44.9 Chronic obstructive pulmonary disease, unspecified; K31.89 Other diseases of stomach and duodenum; Z79.4 Long term (current) use of insulin; Z79.82 Long term (current) use of aspirin; Z79.890 Hormone replacement therapy; Z79.899 Other long term (current) drug therapy; Z80.8 Family history of malignant neoplasm of other organs or systems; Z86.73 Personal history of transient ischemic attack (TIA), and cerebral infarction without residual deficits; Z87.442 Personal history of urinary calculi; Z87.891 Personal history of nicotine dependence; Z90.5 Acquired absence of kidney; Z91.14 Patient's other noncompliance with medication regimen; Z91.19 Patient's noncompliance with other medical treatment and regimen; Z88.0 Allergy status to penicillin; K74.60 Unspecified cirrhosis of liver
CPT/HCPCS: 96376 ×2; 96361 ×4; 96365; 96375; 99285; 36415; 94640; 93005; 97161; 80053 ×2; 80048 ×2; 84443; 82140 ×4; 82550; 84484; 85025 ×4; 85610; 85730; 81003; 80306; 83520; 71046; 70450; G0378 ×4; G0480 ×2; S4990 ×3; J2405; J0696 ×3; C9113 ×2; 80320; 80329; 96360

== ENCOUNTER 2019-12-19 21:21 | Emergency (ER) | payer OTHER ==
[2019-12-19 21:45] LABS: Glucose,Whole Blood 106 mg/dL (75-99)
--- NOTE | 2019-12-19 21:45 | ED ---
Altered Mental Status HPI - General Stated Complaint: Altered Mental Time Seen by Provider: 12/19/19 21:29 - History of Present Illness Initial Comments: This patient is a 59-year-old man brought to have evaluation for altered mental status. Most of the history is from the patient's , as the patient is only able to ask simple direct questions at this point. Patient's states that starting around noon he began to be somewhat more confused and less active around the house. Patient's states that it seems similar to when his ammonia level was elevated in the past. She reports that he had not taken all of his lactulose doses today. She believes that he was compliant with all his medication yesterday. The patient is able to answer that he does not feel well, but cannot provide any specifics. He is not able to indicate any localized pain. Not able to indicate any dyspnea. MD Complaint: altered mental status Onset/Timin -: hour(s) Severity: moderate Consistency of Symptoms: getting worse Context: history of similar presentation, liver disease, COPD Associated Symptoms: denies other symptoms - Related Data Home Medications Medication Instructions Recorded Confirmed Furosemide [Lasix] 20 mg PO DAILY 08/05/18 12/19/19 Cholecalciferol [Vitamin D3 (25 5,000 unit PO DAILY 08/18/18 12/19/19 Mcg = 1000 Iu)] Ferrous Sulfate [Iron (65 MG 325 mg PO MOWEFR 08/18/18 12/19/19 Elemental)] Atorvastatin Calcium [Lipitor] 10 mg PO DAILY 09/14/19 12/19/19 Lisinopril [Zestril] 10 mg PO DAILY 09/14/19 12/19/19 Magnesium Oxide [Mag-Ox] 400 mg PO BID 09/14/19 12/19/19 Multivitamins, Thera [Multivitamin 1 tab PO DAILY 09/14/19 12/19/19 (formulary)] Nicotine 21Mg/24Hr Patch [Habitrol] 1 patch TRANSDERM DAILY 09/14/19 12/19/19 Rifaximin [Xifaxan] 550 mg PO BID 09/14/19 12/19/19 Albuterol Inhaler [Ventolin Hfa 1 - 2 puff INHALATION RT-Q4H PRN 11/24/19 12/19/19 Inhaler] Aspirin EC [Ecotrin Low Dose] 81 mg PO DAILY 12/27/19 01/21/20 Nitrostat 0.3mg 0.3 mg SL Q5M PRN 11/24/19 12/19/19 Pioglitazone [Actos] 15 mg PO DAILY 11/24/19 12/19/19 QUEtiapine XR [SEROquel XR] 200 mg PO HS 11/24/19 12/19/19 Previous Rx's Medication Instructions Recorded Levothyroxine Sodium 150 mcg PO DAILY #30 tablet 08/19/18 Insulin Glargine,Hum.rec.anlog 20 units SQ HS #0 09/16/19 [Basaglar Kwikpen U-100] Lactulose [Cephulac] 20 gm PO QID #1 11/27/19 Tamsulosin [Flomax] 0.4 mg PO PC-BRKFST #30 cap.er.24h 11/27/19 Ciprofloxacin HCl [Cipro] 500 mg PO Q12HR #14 tablet 12/20/19 Allergies Allergy/AdvReac Type Severity Reaction Status Date / Time Penicillins Allergy Unknown Verified 12/19/19 21:53 Childhood Review of Systems ROS Statement: Those systems with pertinent positive or pertinent negative responses have been documented in the HPI. ROS Other: All systems not noted in ROS Statement are negative. Limitations: ROS unobtainable due to patients medical condition (Altered mental status) Past Medical History Past Medical History: COPD, CVA/TIA, Diabetes Mellitus, Hearing Disorder / Deafness, Hyperlipidemia, Hypertension, Liver Disease, Thyroid Disorder Additional Past Medical History / Comment(s): Pt recently admitted to [facility] on 08/05/18 with acute hepatic encephalopathy/increased ammonia levels. Other hx: Alcoholism, alcoholic liver cirrhosis, history of hepatic encephalopathy, portal hypertension and esophageal varices and portal hypertensive gastropathy, significant other states pt has not drank alcohol since March 2018, CVA, kidney stones, hypothyroidism, L ear deafness. Last Myocardial Infarction Date:: unknown History of Any Multi-Drug Resistant Organisms: None Reported Past Surgical History: Joint Replacement Additional Past Surgical History / Comment(s): Right nephrectomy as an for nonfunctioning kidney, bilateral total knee surgery, liver drain or stents done at [facility], EGD Past Anesthesia/Blood Transfusion Reactions: No Reported Reaction Additional Past Anesthesia/Blood Transfusion Reaction / Comment(s): blood trandfusion - no known reaction Past Psychological History: Bipolar, Depression Smoking Status: Former smoker Past Alcohol Use History: None Reported Past Drug Use History: None Reported - Past Family History Mother Family Medical History: Cancer Additional Family Medical History / Comment(s): skin cancer Father History Unknown: Yes Additional Family Medical History / Comment(s): pt was raised buy his step dad. General Exam General appearance: alert Head exam: Present: atraumatic, normocephalic Eye exam: Present: normal appearance, PERRL, EOMI. Absent: scleral icterus, conjunctival injection ENT exam: Present: mucous membranes dry Neck exam: Present: normal inspection, full ROM. Absent: meningismus Respiratory exam: Present: normal lung sounds bilaterally. Absent: respiratory distress, wheezes, rales, rhonchi, stridor Cardiovascular Exam: Present: regular rate, normal rhythm, normal heart sounds. Absent: systolic murmur, diastolic murmur, rubs, gallop GI/Abdominal exam: Present: soft. Absent: distended, tenderness, guarding, rebound, rigid, mass, pulsatile mass Extremities exam: Present: normal inspection, normal capillary refill. Absent: pedal edema, calf tenderness Back exam: Present: normal inspection. Absent: CVA tenderness (R), CVA tenderness (L) Neurological exam: Present: alert, CN II-XII intact, other (The patient is not able to fully comply with neurologic exam as she is only able to follow very simple one step commands. He does not manifest any focal neurologic deficit in that he is able to move all 4 extremities and does respond to touch of the extremities.). Absent: oriented X3 (Patient is oriented only to person.), motor sensory deficit Skin exam: Present: warm, dry, intact, normal color. Absent: rash Course Vital Signs 12/19/19 12/19/19 12/20/19 21:30 23:03 00:00 Temperature 99.7 F H 98.7 F Pulse Rate 86 80 78 Respiratory 20 18 18 Rate Blood Pressure 105/92 148/60 151/60 O2 Sat by Pulse 98 95 98 Oximetry Medical Decision Making - Lab Data Result diagrams: 12/19/19 21:43 12/19/19 21:43 Lab Results 12/19/19 12/19/19 12/19/19 Range/Units 21:34 21:43 21:43 WBC 4.2 (3.8-10.6) k/uL RBC 4.35 (4.30-5.90) m/uL Hgb 13.3 (13.0-17.5) gm/dL Hct 42.1 (39.0-53.0) % MCV 96.8 (80.0-100.0) fL MCH 30.5 (25.0-35.0) pg MCHC 31.5 (31.0-37.0) g/dL RDW 14.6 (11.5-15.5) % Plt Count 78 L (150-450) k/uL Neutrophils % 69 % Lymphocytes % 17 % Monocytes % 8 % Eosinophils % 3 % Basophils % 2 % Neutrophils # 2.9 (1.3-7.7) k/uL Lymphocytes # 0.7 L (1.0-4.8) k/uL Monocytes # 0.3 (0-1.0) k/uL Eosinophils # 0.1 (0-0.7) k/uL Basophils # 0.1 (0-0.2) k/uL PT (9.0-12.0) sec INR (<1.2) APTT (22.0-30.0) sec VBG pH (7.31-7.41) VBG pCO2 (37-51) mmHg VBG HCO3 (24-28) mmol/L Sodium (137-145) mmol/L Potassium (3.5-5.1) mmol/L Chloride (98-107) mmol/L Carbon Dioxide (22-30) mmol/L Anion Gap mmol/L BUN (9-20) mg/dL Creatinine (0.66-1.25) mg/dL Est GFR (CKD-EPI)AfAm (>60 ml/min/1.73 sqM) Est GFR (CKD-EPI)NonAf (>60 ml/min/1.73 sqM) Glucose (74-99) mg/dL POC Glucose (mg/dL) 106 H (75-99) mg/dL POC Glu [employer] Operator ID [place] Plasma Lactic Acid Iker 2.0 (0.7-2.0) mmol/L Calcium (8.4-10.2) mg/dL Total Bilirubin (0.2-1.3) mg/dL AST (17-59) U/L ALT (4-49) U/L Alkaline Phosphatase (38-126) U/L Ammonia 27 (<30) umol/L Troponin I (0.000-0.034) ng/mL Total Protein (6.3-8.2) g/dL Albumin (3.5-5.0) g/dL Urine Color Urine Appearance (Clear) Urine pH (5.0-8.0) Ur Specific [place] (1.001-1.035) Urine Protein (Negative) Urine Glucose (UA) (Negative) Urine Ketones (Negative) Urine Blood (Negative) Urine Nitrite (Negative) Urine Bilirubin (Negative) Urine Urobilinogen (<2.0) mg/dL Ur Leukocyte Esterase (Negative) Urine RBC (0-5) /hpf Urine WBC (0-5) /hpf Ur Squamous Epith Cells (0-4) /hpf Urine Bacteria (None) /hpf Urine Mucus (None) /hpf Urine Yeast (Budding) (None) /hpf Urine Opiates Screen (NotDetected) Ur Oxycodone Screen (NotDetected) Urine Methadone Screen (NotDetected) Ur Propoxyphene Screen (NotDetected) Ur Barbiturates Screen (NotDetected) U Tricyclic Antidepress (NotDetected) Ur Phencyclidine Scrn (NotDetected) Ur Amphetamines Screen (NotDetected) U Methamphetamines Scrn (NotDetected) U Benzodiazepines Scrn (NotDetected) Urine Cocaine Screen (NotDetected) U Marijuana (THC) Screen (NotDetected) 12/19/19 12/19/19 12/19/19 Range/Units 21:43 21:43 21:43 WBC (3.8-10.6) k/uL RBC (4.30-5.90) m/uL Hgb (13.0-17.5) gm/dL Hct (39.0-53.0) % MCV (80.0-100.0) fL MCH (25.0-35.0) pg MCHC (31.0-37.0) g/dL RDW (11.5-15.5) % Plt Count (150-450) k/uL Neutrophils % % Lymphocytes % % Monocytes % % Eosinophils % % Basophils % % Neutrophils # (1.3-7.7) k/uL Lymphocytes # (1.0-4.8) k/uL Monocytes # (0-1.0) k/uL Eosinophils # (0-0.7) k/uL Basophils # (0-0.2) k/uL PT 13.1 H (9.0-12.0) sec INR 1.3 H (<1.2) APTT 23.2 (22.0-30.0) sec VBG pH (7.31-7.41) VBG pCO2 (37-51) mmHg VBG HCO3 (24-28) mmol/L Sodium 142 (137-145) mmol/L Potassium 4.1 (3.5-5.1) mmol/L Chloride 115 H (98-107) mmol/L Carbon Dioxide 23 (22-30) mmol/L Anion Gap 4 mmol/L BUN 13 (9-20) mg/dL Creatinine 0.87 (0.66-1.25) mg/dL Est GFR (CKD-EPI)AfAm >90 (>60 ml/min/1.73 sqM) Est GFR (CKD-EPI)NonAf >90 (>60 ml/min/1.73 sqM) Glucose 117 H (74-99) mg/dL POC Glucose (mg/dL) (75-99) mg/dL POC Glu [employer] Operator ID Plasma Lactic Acid Iker (0.7-2.0) mmol/L Calcium 9.2 (8.4-10.2) mg/dL Total Bilirubin 1.4 H (0.2-1.3) mg/dL AST 50 (17-59) U/L ALT 25 (4-49) U/L Alkaline Phosphatase 109 (38-126) U/L Ammonia (<30) umol/L Troponin I <0.012 (0.000-0.034) ng/mL Total Protein 7.1 (6.3-8.2) g/dL Albumin 3.3 L (3.5-5.0) g/dL Urine Color Urine Appearance (Clear) Urine pH (5.0-8.0) Ur Specific [place] (1.001-1.035) Urine Protein (Negative) Urine Glucose (UA) (Negative) Urine Ketones (Negative) Urine Blood (Negative) Urine Nitrite (Negative) Urine Bilirubin (Negative) Urine Urobilinogen (<2.0) mg/dL Ur Leukocyte Esterase (Negative) Urine RBC (0-5) /hpf Urine WBC (0-5) /hpf Ur Squamous Epith Cells (0-4) /hpf Urine Bacteria (None) /hpf Urine Mucus (None) /hpf Urine Yeast (Budding) (None) /hpf Urine Opiates Screen (NotDetected) Ur Oxycodone Screen (NotDetected) Urine Methadone Screen (NotDetected) Ur Propoxyphene Screen (NotDetected) Ur Barbiturates Screen (NotDetected) U Tricyclic Antidepress (NotDetected) Ur Phencyclidine Scrn (NotDetected) Ur Amphetamines Screen (NotDetected) U Methamphetamines Scrn (NotDetected) U Benzodiazepines Scrn (NotDetected) Urine Cocaine Screen (NotDetected) U Marijuana (THC) Screen (NotDetected) 12/19/19 12/19/19 Range/Units 21:47 23:07 WBC (3.8-10.6) k/uL RBC (4.30-5.90) m/uL Hgb (13.0-17.5) gm/dL Hct (39.0-53.0) % MCV (80.0-100.0) fL MCH (25.0-35.0) pg MCHC (31.0-37.0) g/dL RDW (11.5-15.5) % Plt Count (150-450) k/uL Neutrophils % % Lymphocytes % % Monocytes % % Eosinophils % % Basophils % % Neutrophils # (1.3-7.7) k/uL Lymphocytes # (1.0-4.8) k/uL Monocytes # (0-1.0) k/uL Eosinophils # (0-0.7) k/uL Basophils # (0-0.2) k/uL PT (9.0-12.0) sec INR (<1.2) APTT (22.0-30.0) sec VBG pH 7.47 H (7.31-7.41) VBG pCO2 30 L (37-51) mmHg VBG HCO3 22 L (24-28) mmol/L Sodium (137-145) mmol/L Potassium (3.5-5.1) mmol/L Chloride (98-107) mmol/L Carbon Dioxide (22-30) mmol/L Anion Gap mmol/L BUN (9-20) mg/dL Creatinine (0.66-1.25) mg/dL Est GFR (CKD-EPI)AfAm (>60 ml/min/1.73 sqM) Est GFR (CKD-EPI)NonAf (>60 ml/min/1.73 sqM) Glucose (74-99) mg/dL POC Glucose (mg/dL) (75-99) mg/dL POC Glu [employer] Operator ID Plasma Lactic Acid Iker (0.7-2.0) mmol/L Calcium (8.4-10.2) mg/dL Total Bilirubin (0.2-1.3) mg/dL AST (17-59) U/L ALT (4-49) U/L Alkaline Phosphatase (38-126) U/L Ammonia (<30) umol/L Troponin I (0.000-0.034) ng/mL Total Protein (6.3-8.2) g/dL Albumin (3.5-5.0) g/dL Urine Color Yellow Urine Appearance Cloudy (Clear) Urine pH 6.5 (5.0-8.0) Ur Specific [place] 1.024 (1.001-1.035) Urine Protein Trace H (Negative) Urine Glucose (UA) Negative (Negative) Urine Ketones Trace H (Negative) Urine Blood Negative (Negative) Urine Nitrite Negative (Negative) Urine Bilirubin Negative (Negative) Urine Urobilinogen 6.0 (<2.0) mg/dL Ur Leukocyte Esterase Large H (Negative) Urine RBC 1 (0-5) /hpf Urine WBC 73 H (0-5) /hpf Ur Squamous Epith Cells 1 (0-4) /hpf Urine Bacteria Rare H (None) /hpf Urine Mucus Many H (None) /hpf Urine Yeast (Budding) Occasional H (None) /hpf Urine Opiates Screen Not Detected (NotDetected) Ur Oxycodone Screen Not Detected (NotDetected) Urine Methadone Screen Not Detected (NotDetected) Ur Propoxyphene Screen Not Detected (NotDetected) Ur Barbiturates Screen Not Detected (NotDetected) U Tricyclic Antidepress Detected H (NotDetected) Ur Phencyclidine Scrn Not Detected (NotDetected) Ur Amphetamines Screen Not Detected (NotDetected) U Methamphetamines Scrn Not Detected (NotDetected) U Benzodiazepines Scrn Not Detected (NotDetected) Urine Cocaine Screen Not Detected (NotDetected) U Marijuana (THC) Screen Not Detected (NotDetected) - EKG Data -: EKG Interpreted by Me EKG shows normal: sinus rhythm, axis (Normal), intervals (Normal), QRS complexes (Normal), ST-T waves (Normal) Rate: normal (Rate 84 bpm) Interpretation: normal EKG Disposition Clinical Impression: Urinary tract infection Disposition: HOME SELF-CARE Condition: Fair Instructions (If sedation given, give patient instructions): Urinary Tract Infection in Men (ED) Prescriptions: Ciprofloxacin HCl [Cipro] 500 mg PO Q12HR #14 tablet Is patient prescribed a controlled substance at d/c from ED?: No Referrals: [facility] [Primary Care Provider] - 1-2 days
[2019-12-19 22:00] LABS: Basophils # (A) 0.1 k/uL (0-0.2); Basophils % (A) 2 %; Eosinophils # (A) 0.1 k/uL (0-0.7); Eosinophils % (A) 3 %; HCT 42.1 % (39.0-53.0); HGB 13.3 gm/dL (13.0-17.5); Lymphocytes # (A) 0.7 k/uL (1.0-4.8); Lymphocytes % (A) 17 %; MCH 30.5 pg (25.0-35.0); MCHC 31.5 g/dL (31.0-37.0); MCV 96.8 fL (80.0-100.0); Mean Platelet Volume 9.6; Monocytes # (A) 0.3 k/uL (0-1.0); Monocytes % (A) 8 %; Neutrophils # (A) 2.9 k/uL (1.3-7.7); Neutrophils % (A) 69 %; RBC 4.35 m/uL (4.30-5.90); RDW 14.6 % (11.5-15.5); WBC 4.2 k/uL (3.8-10.6)
[2019-12-19 22:05] LABS: VBG PH 7.47 (7.31-7.41)
[2019-12-19 22:05] LABS: Platelet Count 78 k/uL (150-450)
[2019-12-19 22:14] LABS: ALT 25 U/L (4-49); AST 50 U/L (17-59); African American GFR (CKD) >90 (>60 ml/min/1.73 sqM); Albumin 3.3 g/dL (3.5-5.0); Alkaline Phosphatase 109 U/L (38-126); Anion Gap 4 mmol/L; Blood Urea Nitrogen 13 mg/dL (9-20); Calcium 9.2 mg/dL (8.4-10.2); Carbon Dioxide 23 mmol/L (22-30); Chloride 115 mmol/L (98-107); Glucose 117 mg/dL (74-99); INR 1.3 (<1.2); Non-African American GFR(CKD) >90 (>60 ml/min/1.73 sqM); Partial Thromboplastin Time 23.2 sec (22.0-30.0); Potassium 4.1 mmol/L (3.5-5.1); Prothrombin Time 13.1 sec (9.0-12.0); Sodium 142 mmol/L (137-145); Total Bilirubin 1.4 mg/dL (0.2-1.3); Total Protein 7.1 g/dL (6.3-8.2)
--- NOTE | 2019-12-19 22:19 | XR ---
EXAMINATION TYPE: XR chest 1V portable DATE OF EXAM: 12/19/2019 COMPARISON: 11/24/2019 HISTORY: Altered mental status TECHNIQUE: Single view FINDINGS: There is no heart failure nor confluent pneumonic infiltrate. Costophrenic angles are clear . There are chest leads. IMPRESSION: No active cardiopulmonary disease. No pleural effusion.
--- NOTE | 2019-12-19 22:23 | CT ---
EXAMINATION TYPE: CT brain wo con DATE OF EXAM: 12/19/2019 COMPARISON: 11/24/2019 HISTORY: ALTERED MENTAL STATUS CT DLP: 1319.4 mGycm Automated exposure control for dose reduction was used. Multiple axial sections were obtained of the brain without contrast. Ventricles have normal size. There is no mass effect nor midline shift. There is no sign of intracran ial hemorrhage. Calvarium is intact. There is no evidence of cerebral edema. IMPRESSION: Negative head CT scan. No change.
[2019-12-19 23:04] VITALS: RESP 18; TEMP 98.7
[2019-12-19 23:33] LABS: Appearance,Urine Cloudy (Clear); Bacteria,Urine Rare /hpf; Bilirubin,Urine Negative (Negative); Blood,Urine Negative (Negative); Budding Yeast,Urine Occasional /hpf; Color,Urine Yellow; Glucose,Urine (UA) Negative (Negative); Ketones,Urine Trace (Negative); Leukocyte Esterase,Urine Large (Negative); Mucus,Urine Many /hpf; Nitrite,Urine Negative (Negative); PH, Urine 6.5 (5.0-8.0); Protein,Urine Trace (Negative); RBC,Urine 1 /hpf (0-5); Specific Gravity,Urine 1.024 (1.001-1.035); Squamous Epithelial Cell,Urine 1 /hpf (0-4); WBC,Urine 73 /hpf (0-5)
[2019-12-19 23:37] LABS: Amphetamine Screen,Urine Not Detected (NotDetected); Barbiturate Screen,Urine Not Detected (NotDetected); Benzodiazepines Screen,Urine Not Detected (NotDetected); Cocaine Screen,Urine Not Detected (NotDetected); Methadone Screen, Urine Not Detected (NotDetected); Opiate Screen,Urine Not Detected (NotDetected); Oxycodone Screen, Urine Not Detected (NotDetected); Phencyclidine Screen,Urine Not Detected (NotDetected); Tricyclic Antidepressant,Urine Detected (NotDetected); Urn Cannabinoid Scrn Not Detected (NotDetected)
[2019-12-20] VITALS: PULSE 78
[2019-12-20] MEDS ORDERED: LEVOFLOXACIN 750 MG TAB PO STA (01:11)
[2019-12-20 01:17] VITALS: BP 158/72
== END 2019-12-20 01:30 | disposition home or self-care (01) ==
LOC: EC 21:21
DX: N39.0 Urinary tract infection, site not specified (principal); R41.82 Altered mental status, unspecified; J44.9 Chronic obstructive pulmonary disease, unspecified; E11.9 Type 2 diabetes mellitus without complications; H91.92 Unspecified hearing loss, left ear; E78.5 Hyperlipidemia, unspecified; I10 Essential (primary) hypertension; F31.9 Bipolar disorder, unspecified; Z87.891 Personal history of nicotine dependence; Z88.0 Allergy status to penicillin; Z79.82 Long term (current) use of aspirin; Z79.84 Long term (current) use of oral hypoglycemic drugs; Z79.899 Other long term (current) drug therapy; Z86.73 Personal history of transient ischemic attack (TIA), and cerebral infarction without residual deficits
CPT/HCPCS: 36415; 93005; 80053; 82140; 82803; 83605; 84484; 85025; 85610; 85730; 81001; 87040; 80306; 87086; 71045; 70450; 99285; 96365; J0696; 87077; 87186

== ENCOUNTER → 2020-07-03 | Outpatient (CLI) | payer OTHER ==
[2020-07-03 09:54] LABS: Basophils % (A) 1 %; Eosinophils # (A) 0.2 k/uL (0-0.7); Eosinophils % (A) 5 %; HGB 15.3 gm/dL (13.0-17.5); Lymphocytes % (A) 27 %; MCH 31.9 pg (25.0-35.0); MCHC 32.5 g/dL (31.0-37.0); MCV 98.2 fL (80.0-100.0); Mean Platelet Volume 10.1; Monocytes # (A) 0.4 k/uL (0-1.0); Monocytes % (A) 10 %; Neutrophils # (A) 2.1 k/uL (1.3-7.7); Neutrophils % (A) 55 %; Platelet Count 86 k/uL (150-450); RBC 4.79 m/uL (4.30-5.90); RDW 13.5 % (11.5-15.5); WBC 3.8 k/uL (3.8-10.6)
[2020-07-03 10:22] LABS: INR 1.3 (<1.2); Prothrombin Time 13.4 sec (9.0-12.0)
[2020-07-03 19:10] LABS: Albumin 3.5 g/dL (3.80-4.90); Albumin/Globulin Ratio 1.13 (1.60-3.17); Bilirubin, Conjugated 0.6 mg/dL (0.20-0.40); Bilirubin,Unconjugated 0.8 mg/dL; Chol/HDL Ratio 2.8; Globulin 3.1 g/dL (1.6-3.3); LDL Cholesterol,Calculated 86.6 mg/dL (0.0-131.0); Total Bilirubin 1.4 mg/dL (0.3-1.2); Total Protein 6.6 g/dL (6.2-8.2); VLDL Calculation 21.4 mg/dL (5.00-40.00)
[2020-07-03 19:16] LABS: Hemoglobin A1C 5.9 % (4.0-6.0)
[2020-07-03 19:17] LABS: Prostate Specific Antigen 0.6 ng/mL (0.0-4.5); T4, Free (Free Thyroxine) 1.2 ng/dL (0.80-1.80)
== END | disposition home or self-care (01) ==
LOC: LABWHC1 08:25
PROVIDERS: ATTEND Physician Assistant
DX: Z12.5 Encounter for screening for malignant neoplasm of prostate (principal); K70.31 Alcoholic cirrhosis of liver with ascites; E11.9 Type 2 diabetes mellitus without complications; E03.9 Hypothyroidism, unspecified
CPT/HCPCS: 36415; 80061; 80076; 82105; 83036; 84153; 84439; 84443; 85025; 85610

== ENCOUNTER → 2020-08-12 | Outpatient (CLI) | payer OTHER ==
--- NOTE | 2020-08-12 09:40 | US ---
EXAMINATION TYPE: US liver DATE OF EXAM: 08/12/2020 COMPARISON: US 08/24/19. CT December 21, 2017. CLINICAL HISTORY: K70.31 Alcoholic cirrhosis. EXAM MEASUREMENTS: Liver Length: 16.2 cm Gallbladder Wall: 0.3 cm CBD: 0.4 cm Right Kidney: Surgically absent cm Pancreas: Partially Obscured by bowel gas Liver: heterogeneous, lobulated contour, TIPS patent, portal vein patent with hepatopedal flow Gallbladder: Multiple stones, as seen previously. Wall appeared somewhat thickened, but GB not overl y distended. Evidence for sonographic Casanova's sign: No CBD: wnl Right Kidney: Surgically absent Heterogeneous hyperechoic appearance of liver with lobulated contour redemonstrated. Evaluation for f ocal masses suboptimal due to the heterogeneity. Vascularity in the TIPS is documented. No new surrou nding ascites. Satisfactory monophasic hepatopedal flow in the main portal vein. Satisfactory biphas ic hepatopedal flow in the hepatic artery. Poorly distended gallbladder with multiple shadowing galls tones. IMPRESSION: Persistent cirrhotic liver. No new ascites. No new ductal dilatation. Multiple Gallstones redemonstrated.
== END | disposition home or self-care (01) ==
LOC: RADUSWWP 08:55 → EEVIPCON 09:00
PROVIDERS: ATTEND Internal Medicine Gastroenterology
DX: K74.60 Unspecified cirrhosis of liver (principal); K80.20 Calculus of gallbladder without cholecystitis without obstruction
CPT/HCPCS: 76705

== ENCOUNTER → 2021-01-17 | Outpatient (CLI) | payer OTHER ==
[2021-01-17 15:57] LABS: Albumin 3.6 g/dL (3.80-4.90); Albumin/Globulin Ratio 1.13 (1.60-3.17); Bilirubin, Conjugated 0.6 mg/dL (0.20-0.40); Globulin 3.2 g/dL (1.6-3.3); Total Bilirubin 1.6 mg/dL (0.3-1.2); Total Protein 6.8 g/dL (6.2-8.2)
[2021-01-17 16:18] LABS: HCT 43.7 % (39.6-50.0); HGB 14.3 g/dL (13.0-17.0); MCH 31.5 pg (27.0-32.0); MCHC 32.7 g/dL (32.0-37.0); MCV 96.3 fL (80.0-97.0); Mean Platelet Volume 13.1 fL (9.5-12.2); Platelet Count 89 X 10*3/uL (140-440); RBC 4.54 X 10*6/uL (4.40-5.60); RDW 13.1 % (11.5-14.5); WBC 4.86 X 10*3/uL (4.50-10.00)
[2021-01-17 16:44] LABS: INR 1.23 (0.90-1.11); Prothrombin Time 13.2 sec (9.9-11.9)
[2021-01-17 19:03] LABS: Hemoglobin A1C 8.6 % (4.0-6.0)
== END | disposition home or self-care (01) ==
LOC: LABWHC1 08:21
PROVIDERS: ATTEND Internal Medicine
DX: K70.31 Alcoholic cirrhosis of liver with ascites (principal); E11.65 Type 2 diabetes mellitus with hyperglycemia
CPT/HCPCS: 36415; 80076; 82105; 83036; 85027; 85610

== ENCOUNTER → 2021-01-17 | Outpatient (CLI) | payer OTHER ==
--- NOTE | 2021-01-17 14:24 | US ---
EXAMINATION TYPE: US liver DATE OF EXAM: 01/17/2021 COMPARISON: NONE CLINICAL HISTORY: K70.31 Alcoholic cirrhosis liver W/ascities. EXAM MEASUREMENTS: Liver Length: 13.7 cm Gallbladder Wall: 0.4 cm normal less than 0.3 cm. CBD: 0.4 cm Right Kidney: Surgically absent Pancreas: Obscured by bowel gas Liver: heterogeneous, lobulated contour, TIPS patent Gallbladder: stones, slightly thickened wall, appears similar to previous Evidence for sonographic Casanova's sign: no CBD: wnl Right Kidney: Surgically absent IMPRESSION: 1. Cholelithiasis in a contracted gallbladder. Wall is thickened. Consider chronic cholecystitis. Fin dings were present previously. 2. Heterogenous lobular liver can be compatible cirrhosis.
== END | disposition home or self-care (01) ==
LOC: RADUSWWP 08:06
PROVIDERS: ATTEND Internal Medicine Gastroenterology
DX: K80.20 Calculus of gallbladder without cholecystitis without obstruction (principal); K82.8 Other specified diseases of gallbladder
CPT/HCPCS: 76705

== ENCOUNTER → 2021-06-10 | Outpatient (CLI) | payer OTHER ==
[2021-06-10 16:48] LABS: Microalbumin Creatinine Ratio <30 mg/g Creat (0-30); Urine Creatinine 46.9 mg/dL
[2021-06-10 18:47] LABS: Hemoglobin A1C 6.2 % (4.0-6.0)
[2021-06-10 20:44] LABS: African American GFR (CKD) 74.7 (60.0-200.0); Anion Gap 8.7 mmol/L (4.00-12.00); BUN/Creat Ratio 12.5 Ratio (12.00-20.00); Calcium 9.6 mg/dL (8.7-10.3); Carbon Dioxide 25.3 mmol/L (21.6-31.8); Chol/HDL Ratio 3.41; Non-African American GFR(CKD) 64.4 (60.0-200.0); Potassium 4.3 mmol/L (3.5-5.5)
[2021-06-10 20:52] LABS: T4, Free (Free Thyroxine) 1.2 ng/dL (0.80-1.80)
== END | disposition home or self-care (01) ==
LOC: LABWHC1 08:49 → EEVIPCON 08:49
PROVIDERS: ATTEND Family Medicine
DX: E11.65 Type 2 diabetes mellitus with hyperglycemia (principal); E03.9 Hypothyroidism, unspecified; E55.9 Vitamin D deficiency, unspecified
CPT/HCPCS: 36415; 80048; 80061; 82043; 82306; 82570; 83036; 84439; 84443

== ENCOUNTER → 2021-09-15 | Outpatient (CLI) | payer OTHER ==
[2021-09-15 16:31] LABS: INR 1.22 (0.90-1.11); Prothrombin Time 13.1 sec (9.9-11.9)
[2021-09-15 17:41] LABS: Basophils # (A) 0.04 X 10*3/uL (0.00-0.10); Eosinophils # (A) 0.23 X 10*3/uL (0.04-0.35); Eosinophils % (A) 5.7 %; HCT 44.9 % (39.6-50.0); HGB 14.4 g/dL (13.0-17.0); Lymphocytes # (A) 1.12 X 10*3/uL (0.90-5.00); Lymphocytes % (A) 27.5 %; MCH 31.8 pg (27.0-32.0); MCHC 32.1 g/dL (32.0-37.0); MCV 99.1 fL (80.0-97.0); Mean Platelet Volume 12.5 fL (9.5-12.2); Monocytes # (A) 0.47 X 10*3/uL (0.20-1.00); Monocytes % (A) 11.5 %; Neutrophils % (A) 54.1 %; Platelet Count 87 X 10*3/uL (140-440); RBC 4.53 X 10*6/uL (4.40-5.60); RDW 14.6 % (11.5-14.5); WBC 4.07 X 10*3/uL (4.50-10.00)
[2021-09-15 17:45] LABS: Albumin 3.6 g/dL (3.8-4.9); Albumin/Globulin Ratio 0.98 (1.60-3.17); Bilirubin, Conjugated 0.53 mg/dL (0.20-0.40); Bilirubin,Unconjugated 0.9 mg/dL (0.20-1.00); Globulin 3.6 g/dL (1.6-3.3); Total Bilirubin 1.4 mg/dL (0.30-1.20); Total Protein 7.2 g/dL (6.2-8.2)
[2021-09-15 17:50] LABS: African American GFR (CKD) 67.3 (60.0-200.0); Albumin 3.6 g/dL (3.8-4.9); Anion Gap 10.8 mmol/L (4.00-12.00); BUN/Creat Ratio 10.85 Ratio (12.00-20.00); Blood Urea Nitrogen 14.1 mg/dL (9.0-27.0); Calcium 9.5 mg/dL (8.7-10.3); Carbon Dioxide 22.8 mmol/L (21.6-31.8); Chol/HDL Ratio 3.47 Ratio; Globulin 3.6 g/dL (1.6-3.3); HDL Cholesterol 63.2 mg/dL (40.00-60.00); LDL Cholesterol,Calculated 130.4 mg/dL (0.0-131.0); Non-African American GFR(CKD) 58.1 (60.0-200.0); Potassium 4.1 mmol/L (3.5-5.5); Prostate Specific Antigen 1.3 ng/mL (0.00-4.50); Total Bilirubin 1.4 mg/dL (0.30-1.20); Total Protein 7.1 g/dL (6.2-8.2); VLDL Calculation 25.4 mg/dL (5.00-40.00)
== END | disposition home or self-care (01) ==
LOC: LABWHC1 09:08
PROVIDERS: ATTEND Nurse Practitioner Family
DX: Z12.5 Encounter for screening for malignant neoplasm of prostate (principal); D61.818 Other pancytopenia; I10 Essential (primary) hypertension; K70.31 Alcoholic cirrhosis of liver with ascites; E11.65 Type 2 diabetes mellitus with hyperglycemia
CPT/HCPCS: 36415; 80053; 80061; 80076; 83036; 84153; 85025; 85610

== ENCOUNTER → 2022-01-15 | Outpatient (CLI) | payer OTHER ==
[2022-01-15 15:50] LABS: ALT 19 U/L (10-49); AST 45 U/L (14-35); Albumin 3.2 g/dL (3.8-4.9); Albumin/Globulin Ratio 0.95 (1.60-3.17); Alkaline Phosphatase 97 U/L (41-126); BUN/Creat Ratio 10.08 Ratio (12.00-20.00); Bilirubin, Conjugated 0.55 mg/dL (0.20-0.40); Bilirubin,Unconjugated 1.03 mg/dL (0.20-1.00); Blood Urea Nitrogen 12.4 mg/dL (9.0-27.0); Calcium 9.1 mg/dL (8.7-10.3); Carbon Dioxide 23.6 mmol/L (20.0-27.5); Chloride 105 mmol/L (96-109); Chol/HDL Ratio 2.65 Ratio; Globulin 3.4 g/dL (1.6-3.3); Glucose 99 mg/dL (70-110); LDL Cholesterol,Calculated 71.8 mg/dL (0.0-131.0); Non-African American GFR(CKD) 62.1 (60.0-200.0); Sodium 139 mmol/L (135-145); Total Protein 6.5 g/dL (6.2-8.2); VLDL Calculation 14.82 mg/dL (5.00-40.00)
[2022-01-15 17:29] LABS: HCT 44.4 % (39.6-50.0); HGB 14.1 g/dL (13.0-17.0); MCH 31.3 pg (27.0-32.0); MCHC 31.8 g/dL (32.0-37.0); MCV 98.4 fL (80.0-97.0); Mean Platelet Volume 13.3 fL (9.5-12.2); NRBC Per 100 WBC 0 /100 WBCS (0.0-0.0); Platelet Count 72 X 10*3/uL (140-440); RBC 4.51 X 10*6/uL (4.40-5.60); RDW 14.6 % (11.5-14.5); WBC 3.54 X 10*3/uL (4.50-10.00)
[2022-01-15 18:45] LABS: Urine Creatinine 62.6 mg/dL (39.0-259.0)
== END | disposition home or self-care (01) ==
LOC: LABWHC1 09:19
PROVIDERS: ATTEND Internal Medicine Gastroenterology
DX: E03.9 Hypothyroidism, unspecified (principal); E55.9 Vitamin D deficiency, unspecified; E11.65 Type 2 diabetes mellitus with hyperglycemia; K70.31 Alcoholic cirrhosis of liver with ascites
CPT/HCPCS: 36415; 80053; 80061; 82043; 82105; 82248; 82306; 82570; 83036; 84439; 84443; 85027

== ENCOUNTER → 2022-03-09 | Outpatient (CLI) | payer OTHER ==
--- NOTE | 2022-03-09 10:16 | US ---
EXAMINATION TYPE: US liver DATE OF EXAM: 03/09/2022 COMPARISON: US CLINICAL HISTORY: K70.31 ALCOHOLIC CIRRHOSIS WITH ASCITIES. Cirrhosis, h/o TIPS procedure, right kidn ey surgically absent EXAM MEASUREMENTS: Liver Length: 14.5 cm Gallbladder Wall: 0.4 cm CBD: 0.6 cm Right Kidney: Surgically absent Pancreas: Head wnl, body and tail gassed out Liver: Coarse echotexture, lobulated contour, heterogeneous, TIPS patent Gallbladder: Gallstones at dependent portion Evidence for sonographic Casanova's sign: No CBD: wnl Right Kidney: Surgically absent Similar findings to previous exam IMPRESSION: 1. Cholelithiasis. 2. Hepatic steatosis with the lobulated hepatic contour.
== END | disposition home or self-care (01) ==
LOC: RADUSWWP 09:44
PROVIDERS: ATTEND Internal Medicine Gastroenterology
DX: K70.31 Alcoholic cirrhosis of liver with ascites (principal); K76.0 Fatty (change of) liver, not elsewhere classified; K80.20 Calculus of gallbladder without cholecystitis without obstruction; Z90.5 Acquired absence of kidney
CPT/HCPCS: 76705

== ENCOUNTER → 2022-05-19 | Outpatient (CLI) | payer OTHER ==
[2022-05-19 11:08] LABS: Creatinine,Urine Random 86.6 mg/dL; Protein/Creatinine Ratio,Urine 0.092
== END | disposition home or self-care (01) ==
LOC: LABWHC1 09:54
PROVIDERS: ATTEND Family Medicine
DX: E11.65 Type 2 diabetes mellitus with hyperglycemia (principal)
CPT/HCPCS: 36415; 82570; 83036; 84156

== ENCOUNTER → 2022-08-31 | Outpatient (CLI) | payer OTHER ==
--- NOTE | 2022-08-31 10:18 | US ---
EXAMINATION TYPE: US liver DATE OF EXAM: 08/31/2022 COMPARISON: NONE CLINICAL HISTORY: K70.31 ALCOHOLIC CIRRHOSIS OF LIVER WITH ASCITES. hx tips procedure. Hx gall stone s. Right kidney removed. TECHNIQUE: Multiple sonographic images of the right upper quadrant are obtained. FINDINGS: EXAM MEASUREMENTS: Liver Length: 13.8 cm Gallbladder Wall: 0.2 cm CBD: 0.3 cm Pancreas: Tail obscured by overlying bowel gas Liver: Heterogenous. Coarse. Nodular. No evidence of prior TIPS with color Doppler flow within t he tubing. Gallbladder: Multiple mobile echogenic foci seen Evidence for sonographic Casanvoa's sign: neg CBD: wnl Right Kidney: Surgically absent IMPRESSION: 1. Cirrhosis without evidence of suspicious mass. 2. Patent TIPS
== END | disposition home or self-care (01) ==
LOC: RADUSWWP 09:14
PROVIDERS: ATTEND Internal Medicine Gastroenterology
DX: K70.31 Alcoholic cirrhosis of liver with ascites (principal)
CPT/HCPCS: 76705

== ENCOUNTER → 2022-09-22 | Outpatient (CLI) | payer OTHER ==
[2022-09-22 15:12] LABS: Albumin 3.2 g/dL (3.8-4.9); Bilirubin, Conjugated 0.68 mg/dL (0.20-0.40); Bilirubin,Unconjugated 0.92 mg/dL (0.20-1.00); Globulin 3.2 g/dL (1.6-3.3); Total Bilirubin 1.6 mg/dL (0.30-1.20); Total Protein 6.4 g/dL (6.2-8.2)
[2022-09-22 15:22] LABS: HCT 43.1 % (39.6-50.0); HGB 14.3 g/dL (13.0-17.0); Immature Platelet Fraction 10.2 % (1.1-6.1); MCH 31.8 pg (27.0-32.0); MCHC 33.2 g/dL (32.0-37.0); MCV 95.8 fL (80.0-97.0); NRBC Per 100 WBC 0 /100 WBCS (0.0-0.0); Platelet Count 71 X 10*3/uL (140-440); RBC Morphology NORMAL; RDW 14.6 % (11.5-14.5); WBC 3.29 X 10*3/uL (4.50-10.00)
== END | disposition home or self-care (01) ==
LOC: LABWHC1 09:36
PROVIDERS: ATTEND Internal Medicine Gastroenterology
DX: K70.31 Alcoholic cirrhosis of liver with ascites (principal); E11.65 Type 2 diabetes mellitus with hyperglycemia
CPT/HCPCS: 36415; 80076; 82105; 83036; 85027

== ENCOUNTER 2023-06-23 09:06 | Inpatient (IN) | payer OTHER ==
[2023-06-23] MEDS ORDERED: LORazepam 2 MG/ML INJ IV STA ×2 (10:04→13:53)
[2023-06-23] MEDS ORDERED: hydrALAZINE HCL 20 MG/ML 1 ML VIAL IVP STA (10:11)
--- NOTE | 2023-06-23 10:12 | ED ---
General Adult HPI - General Chief complaint: Altered Mental Status Stated complaint: AMS Time Seen by Provider: 06/23/23 09:21 Source: patient, EMS, RN notes reviewed, old records reviewed Mode of arrival: EMS - History of Present Illness Initial comments: Patient is a 62-year-old male who presents emergency Department for altered mental status. Has had increased confusion. Also increasing tremors. Unknown for how long. EMS brought the patient here from a house where he lives. Unknown when he last took any of his medications. Does have history of alcoholic cirrhosis, prior CVA, COPD, hypertension. Patient appears confused. Denies any acute complaints. No other acute complaints at this time. Presents for further evaluation at this time. Appears anxious. Does have tremors. - Related Data Home Medications Medication Instructions Recorded Confirmed Furosemide [Lasix] 20 mg PO DAILY 08/05/18 06/23/23 Ferrous Sulfate [Iron (65 MG 325 mg PO MOWEFR 08/18/18 06/23/23 Elemental)] Multivitamins, Thera [Multivitamin 1 tab PO DAILY 09/14/19 06/23/23 (formulary)] Rifaximin [Xifaxan] 550 mg PO AC-BID 09/14/19 06/23/23 lisinopriL [Zestril] 10 mg PO DAILY 09/14/19 06/23/23 Albuterol Inhaler [Ventolin Hfa 2 puff INHALATION RT-QID PRN 06/23/23 06/23/23 Inhaler] Ipratropium-Albuterol Nebulize 3 ml INHALATION RT-Q6H PRN 06/23/23 06/23/23 [Duoneb 0.5 mg-3 mg/3 ml Soln] Lactulose 30 gm PO QID 06/23/23 06/23/23 Levothyroxine Sodium [Synthroid] 125 mcg PO DAILY 06/23/23 06/23/23 Thiamine [Vitamin B-1] 100 mg PO DAILY 06/23/23 06/23/23 Allergies Allergy/AdvReac Type Severity Reaction Status Date / Time Penicillins Allergy Unknown Verified 06/23/23 12:12 Childhood Review of Systems ROS Statement: Those systems with pertinent positive or pertinent negative responses have been documented in the HPI. ROS Other: All systems not noted in ROS Statement are negative. Past Medical History Past Medical History: COPD, CVA/TIA, Diabetes Mellitus, Hearing Disorder / Deafness, Hyperlipidemia, Hypertension, Liver Disease, Thyroid Disorder Additional Past Medical History / Comment(s): Pt recently admitted to [facility] on 08/05/18 with acute hepatic encephalopathy/increased ammonia levels. Other hx: Alcoholism, alcoholic liver cirrhosis, history of hepatic encephalopathy, portal hypertension and esophageal varices and portal hypertensive gastropathy, significant other states pt has not drank alcohol since March 2018, CVA, kidney stones, hypothyroidism, L ear deafness. Last Myocardial Infarction Date:: unknown History of Any Multi-Drug Resistant Organisms: None Reported Past Surgical History: Joint Replacement Additional Past Surgical History / Comment(s): Right nephrectomy as an for nonfunctioning kidney, bilateral total knee surgery, liver drain or stents done at [facility], EGD Past Anesthesia/Blood Transfusion Reactions: No Reported Reaction Additional Past Anesthesia/Blood Transfusion Reaction / Comment(s): blood trandfusion - no known reaction Past Psychological History: Bipolar, Depression Past Alcohol Use History: None Reported Past Drug Use History: None Reported - Past Family History Mother Family Medical History: Cancer Additional Family Medical History / Comment(s): skin cancer Father History Unknown: Yes Additional Family Medical History / Comment(s): pt was raised buy his step dad. General Exam - General Exam Comments Initial Comments: General: Tremulous. Appears anxious. HEAD: Normal with no signs of head trauma. EYES: PERRLA, EOMI, conjunctiva normal, no discharge. Pupils are 2 mm and equal bilaterally. ENT: Hearing grossly intact, normal oropharynx. RESPIRATORY: Clear breath sounds bilaterally. No wheezes, rales, or rhonchi. No hypoxia. C/V: Regular rate and rhythm. S1 and S2 auscultated, no edema, peripheral pulses 2+ and intact throughout. Patient is hypertensive. ABD: Abd is soft, nontender, nondistended EXT: Normal range of motion, no obvious deformity SKIN: Diffuse skin changes of unknown chronicity. NEURO: Alert and oriented times one to tube. Apparently patient is alert and oriented 3-4 baseline. No obvious deficits. Course Vital Signs 06/23/23 06/23/23 06/23/23 09:12 10:01 10:38 Temperature 97.7 F Pulse Rate 105 H 93 102 H Respiratory 12 15 15 Rate Blood Pressure 203/177 195/73 177/82 O2 Sat by Pulse 99 95 94 L Oximetry Medical Decision Making - Medical Decision Making Was pt. sent in by a medical professional or institution (, [employer], [employer], urgent care, hospital, or penitentiary...) When possible be specific @ -No Did you speak to anyone other than the patient for history (EMS, parent, family, police, friend...)? What history was obtained from this source @ -No Did you review nursing and triage notes (agree or disagree)? Why? @ -I reviewed and agree with nursing and triage notes Were old charts reviewed (outside hosp., previous admission, EMS record, old EKG, old radiological studies, urgent care reports/EKG's, penitentiary records)? Report findings @ -Old charts reviewed from 2019 Differential Diagnosis (chest pain, altered mental status, abdominal pain women, abdominal pain men, vaginal bleeding, weakness, fever, dyspnea, syncope, headache, dizziness, GI bleed, back pain, seizure, CVA, palpatations, mental health, musculoskeletal)? @ -Differential Altered Mental Status: Hypoglycemia, DKA, hypercapnia, ETOH, overdose, CO poisoning, trauma, myxedema coma, HTN encephalopathy, infection, encephalitis, psychosis, intercranial hemorrhage, hepatic encephalopathy, meningitis, CVA, this is not meant to be an all-inclusive list EKG interpreted by me (3pts min.). @ -As above X-rays interpreted by me (1pt min.). @ -Chest x-ray reveals no obvious acute cardio pulmonary process. CT interpreted by me (1pt min.). @ -CT brain reveals no obvious acute intracranial process. U/S interpreted by me (1pt. min.). @ -None done What testing was considered but not performed or refused? (CT, X-rays, U/S, labs)? Why? @ -None What meds were considered but not given or refused? Why? @ -None Did you discuss the management of the patient with other professionals (professionals i.e. , [employer], [employer], lab, RT, psych nurse, director social, vertical mill operator, teacher, inshore undersea warfare officer, onsite case manager)? Give summary @ -Spoke with the admitting physician, Dr. Tamez who accepted the patient. [facility] Was smoking cessation discussed for >3mins.? @ -No Was critical care preformed (if so, how long)? @ -No Were there social determinants of health that impacted care today? How? (Homelessness, low income, unemployed, alcoholism, drug addiction, transportation, low edu. Level, literacy, decrease access to med. care, custodial, rehab)? @ -No Was there de-escalation of care discussed even if they declined (Discuss DNR or withdrawal of care, Hospice)? DNR status @ -No What co-morbidities impacted this encounter? (DM, HTN, Smoking, COPD, CAD, Cancer, CVA, ARF, Chemo, Hep., AIDS, mental health diagnosis, sleep apnea, morbid obesity)? @ -None Was patient admitted / discharged? Hospital course, mention meds given and route, prescriptions, significant lab abnormalities, going to OR and other pertinent info. @ -Based on the patient's presentation and physical exam, patient presents with confusion of unknown chronicity and tremors. Unknown if patient is taking his medications. Presents from home. Patient is hypertensive. Cannot provide much history. Is confused. Alert and oriented to person and place only. We will obtain a general altered mental status workup. Patient appears anxious which may explain his hypertension and we will administer a dose of Ativan and reevaluate. We will obtain CT imaging of the brain as well as chest x-ray. Patient was in agreement this plan. Nursing staff will attempt to contact family or guardian. Patient's labs are remarkable for chronic thrombocytopenia. Chronic mild anemia. Patient appears to have hepatic encephalopathy with an ammonia of 150. Lactic acid is elevated to 3.7 which is likely chronic secondary to his poor liver function. No evidence of acute infectious process at this time. Imaging is unremarkable. EKG is unremarkable. Imaging is unremarkable. At this time, I do suspect that his altered mental status is likely secondary to hepatic encephalopathy. Patient was started on lactulose. He requires admission. We still have not been able to contact family. I spoke with the admitting team, Dr. Tamez who accepted the patient. Patient admitted in stable condition. Undiagnosed new problem with uncertain prognosis? @ -No Drug Therapy requiring intensive monitoring for toxicity (Heparin, Nitro, Insulin, Cardizem)? @ -No Were any procedures done? @ -No Diagnosis/symptom? @ -Hepatic encephalopathy Acute, or Chronic, or Acute on Chronic? @ -Acute Uncomplicated (without systemic symptoms) or Complicated (systemic symptoms)? @ -Complicated Side effects of treatment? @ -none Exacerbation, Progression, or Severe Exacerbation] @ -no Poses a threat to life or bodily function? @ -Yes Diagnosis/symptom? @ -History of alcoholic liver cirrhosis Acute, or Chronic, or Acute on Chronic? @ -Chronic Uncomplicated (without systemic symptoms) or Complicated (systemic symptoms)? @ -Complicated Side effects of treatment? @ -none Exacerbation, Progression, or Severe Exacerbation] @ -no Poses a threat to life or bodily function? @ -no - Lab Data Result diagrams: 06/23/23 10:01 06/23/23 10:01 Lab Results 06/23/23 06/23/23 06/23/23 Range/Units 10:01 10:01 10:01 WBC 5.2 (3.8-10.6) k/uL RBC 3.90 L (4.30-5.90) m/uL Hgb 12.7 L (13.0-17.5) gm/dL Hct 38.6 L (39.0-53.0) % MCV 99.1 (80.0-100.0) fL MCH 32.6 (25.0-35.0) pg MCHC 32.9 (31.0-37.0) g/dL RDW 15.6 H (11.5-15.5) % Plt Count 88 L (150-450) k/uL MPV 9.5 Neutrophils % 68 % Lymphocytes % 19 % Monocytes % 8 % Eosinophils % 1 % Basophils % 0 % Neutrophils # 3.6 (1.3-7.7) k/uL Lymphocytes # 1.0 (1.0-4.8) k/uL Monocytes # 0.4 (0-1.0) k/uL Eosinophils # 0.1 (0-0.7) k/uL Basophils # 0.0 (0-0.2) k/uL Macrocytosis Slight PT 13.9 H (9.0-12.0) sec INR 1.4 H (<1.2) APTT 27.4 (22.0-30.0) sec Sodium (137-145) mmol/L Potassium (3.5-5.1) mmol/L Chloride (98-107) mmol/L Carbon Dioxide (22-30) mmol/L Anion Gap mmol/L BUN (9-20) mg/dL Creatinine (0.66-1.25) mg/dL Est GFR (CKD-EPI)AfAm (>60 ml/min/1.73 sqM) Est GFR (CKD-EPI)NonAf (>60 ml/min/1.73 sqM) Glucose (74-99) mg/dL Lactic Ac Sepsis Rflx Plasma Lactic Acid [place] (0.7-2.0) mmol/L Calcium (8.4-10.2) mg/dL Total Bilirubin (0.2-1.3) mg/dL AST (17-59) U/L ALT (4-49) U/L Alkaline Phosphatase (38-126) U/L Ammonia (<30) umol/L Troponin I (0.000-0.034) ng/mL Total Protein (6.3-8.2) g/dL Albumin (3.5-5.0) g/dL Urine Color Light Red Urine Appearance Clear (Clear) Urine pH 6.0 (5.0-8.0) Ur Specific [place] 1.016 (1.001-1.035) Urine Protein Negative (Negative) Urine Glucose (UA) 4+ H (Negative) Urine Ketones Negative (Negative) Urine Blood Negative (Negative) Urine Nitrite Negative (Negative) Urine Bilirubin Negative (Negative) Urine Urobilinogen <2.0 (<2.0) mg/dL Ur Leukocyte Esterase Negative (Negative) Urine Opiates Screen Not Detected (NotDetected) Ur Oxycodone Screen Not Detected (NotDetected) Urine Methadone Screen Not Detected (NotDetected) Ur Propoxyphene Screen Not Detected (NotDetected) Ur Barbiturates Screen Not Detected (NotDetected) U Tricyclic Antidepress Not Detected (NotDetected) Ur Phencyclidine Scrn Not Detected (NotDetected) Ur Amphetamines Screen Not Detected (NotDetected) U Methamphetamines Scrn Not Detected (NotDetected) U Benzodiazepines Scrn Not Detected (NotDetected) Urine Cocaine Screen Not Detected (NotDetected) U Marijuana (THC) Screen Detected H (NotDetected) Serum Alcohol mg/dL Influenza Type A (PCR) (Not Detectd) Influenza Type B (PCR) (Not Detectd) RSV (PCR) (Not Detectd) SARS-CoV-2 (PCR) (Not Detectd) 06/23/23 06/23/23 06/23/23 Range/Units 10:01 10:01 10:01 WBC (3.8-10.6) k/uL RBC (4.30-5.90) m/uL Hgb (13.0-17.5) gm/dL Hct (39.0-53.0) % MCV (80.0-100.0) fL MCH (25.0-35.0) pg MCHC (31.0-37.0) g/dL RDW (11.5-15.5) % Plt Count (150-450) k/uL MPV Neutrophils % % Lymphocytes % % Monocytes % % Eosinophils % % Basophils % % Neutrophils # (1.3-7.7) k/uL Lymphocytes # (1.0-4.8) k/uL Monocytes # (0-1.0) k/uL Eosinophils # (0-0.7) k/uL Basophils # (0-0.2) k/uL Macrocytosis PT (9.0-12.0) sec INR (<1.2) APTT (22.0-30.0) sec Sodium 141 (137-145) mmol/L Potassium 4.2 (3.5-5.1) mmol/L Chloride 114 H (98-107) mmol/L Carbon Dioxide 19 L (22-30) mmol/L Anion Gap 8 mmol/L BUN 14 (9-20) mg/dL Creatinine 1.16 (0.66-1.25) mg/dL Est GFR (CKD-EPI)AfAm 77 (>60 ml/min/1.73 sqM) Est GFR (CKD-EPI)NonAf 67 (>60 ml/min/1.73 sqM) Glucose 134 H (74-99) mg/dL Lactic Ac Sepsis Rflx Plasma Lactic Acid [place] 3.7 H* (0.7-2.0) mmol/L Calcium 9.1 (8.4-10.2) mg/dL Total Bilirubin 2.2 H (0.2-1.3) mg/dL AST 64 H (17-59) U/L ALT 35 (4-49) U/L Alkaline Phosphatase 131 H (38-126) U/L Ammonia 150 H (<30) umol/L Troponin I 0.024 (0.000-0.034) ng/mL Total Protein 6.9 (6.3-8.2) g/dL Albumin 3.1 L (3.5-5.0) g/dL Urine Color Urine Appearance (Clear) Urine pH (5.0-8.0) Ur Specific [place] (1.001-1.035) Urine Protein (Negative) Urine Glucose (UA) (Negative) Urine Ketones (Negative) Urine Blood (Negative) Urine Nitrite (Negative) Urine Bilirubin (Negative) Urine Urobilinogen (<2.0) mg/dL Ur Leukocyte Esterase (Negative) Urine Opiates Screen (NotDetected) Ur Oxycodone Screen (NotDetected) Urine Methadone Screen (NotDetected) Ur Propoxyphene Screen (NotDetected) Ur Barbiturates Screen (NotDetected) U Tricyclic Antidepress (NotDetected) Ur Phencyclidine Scrn (NotDetected) Ur Amphetamines Screen (NotDetected) U Methamphetamines Scrn (NotDetected) U Benzodiazepines Scrn (NotDetected) Urine Cocaine Screen (NotDetected) U Marijuana (THC) Screen (NotDetected) Serum Alcohol <10 mg/dL Influenza Type A (PCR) (Not Detectd) Influenza Type B (PCR) (Not Detectd) RSV (PCR) (Not Detectd) SARS-CoV-2 (PCR) (Not Detectd) 06/23/23 06/23/23 Range/Units 10:01 11:17 WBC (3.8-10.6) k/uL RBC (4.30-5.90) m/uL Hgb (13.0-17.5) gm/dL Hct (39.0-53.0) % MCV (80.0-100.0) fL MCH (25.0-35.0) pg MCHC (31.0-37.0) g/dL RDW (11.5-15.5) % Plt Count (150-450) k/uL MPV Neutrophils % % Lymphocytes % % Monocytes % % Eosinophils % % Basophils % % Neutrophils # (1.3-7.7) k/uL Lymphocytes # (1.0-4.8) k/uL Monocytes # (0-1.0) k/uL Eosinophils # (0-0.7) k/uL Basophils # (0-0.2) k/uL Macrocytosis PT (9.0-12.0) sec INR (<1.2) APTT (22.0-30.0) sec Sodium (137-145) mmol/L Potassium (3.5-5.1) mmol/L Chloride (98-107) mmol/L Carbon Dioxide (22-30) mmol/L Anion Gap mmol/L BUN (9-20) mg/dL Creatinine (0.66-1.25) mg/dL Est GFR (CKD-EPI)AfAm (>60 ml/min/1.73 sqM) Est GFR (CKD-EPI)NonAf (>60 ml/min/1.73 sqM) Glucose (74-99) mg/dL Lactic Ac Sepsis Rflx Y Plasma Lactic Acid [place] (0.7-2.0) mmol/L Calcium (8.4-10.2) mg/dL Total Bilirubin (0.2-1.3) mg/dL AST (17-59) U/L ALT (4-49) U/L Alkaline Phosphatase (38-126) U/L Ammonia (<30) umol/L Troponin I (0.000-0.034) ng/mL Total Protein (6.3-8.2) g/dL Albumin (3.5-5.0) g/dL Urine Color Urine Appearance (Clear) Urine pH (5.0-8.0) Ur Specific [place] (1.001-1.035) Urine Protein (Negative) Urine Glucose (UA) (Negative) Urine Ketones (Negative) Urine Blood (Negative) Urine Nitrite (Negative) Urine Bilirubin (Negative) Urine Urobilinogen (<2.0) mg/dL Ur Leukocyte Esterase (Negative) Urine Opiates Screen (NotDetected) Ur Oxycodone Screen (NotDetected) Urine Methadone Screen (NotDetected) Ur Propoxyphene Screen (NotDetected) Ur Barbiturates Screen (NotDetected) U Tricyclic Antidepress (NotDetected) Ur Phencyclidine Scrn (NotDetected) Ur Amphetamines Screen (NotDetected) U Methamphetamines Scrn (NotDetected) U Benzodiazepines Scrn (NotDetected) Urine Cocaine Screen (NotDetected) U Marijuana (THC) Screen (NotDetected) Serum Alcohol mg/dL Influenza Type A (PCR) Not Detected (Not Detectd) Influenza Type B (PCR) Not Detected (Not Detectd) RSV (PCR) Not Detected (Not Detectd) SARS-CoV-2 (PCR) Not Detected (Not Detectd) - EKG Data -: EKG Interpreted by Me EKG Comments: 12-lead Electrocardiogram Interpretation Note EKG was reviewed and interpreted by myself. 12-lead ECG performed at 1042 is in terpreted by me as revealing normal sinus rhythm at a rate of 97 beats per minute. [place] is normal. SD interval is 162 ms, QRS duration is 89 ms, QTc is 426 seconds.. There were no ST or T wave abnormalities to suggest myocardial ischemia or injury. R wave progression across the precordium was satisfactory. By my interpretation this EKG is non-diagnostic for acute ischemia. Disposition Clinical Impression: Hypertensive encephalopathy Disposition: ADMITTED IP TO THIS HOSP Condition: Serious Time of Disposition: 12:48
[2023-06-23 10:19] LABS: Basophils % (A) 0 %; Eosinophils # (A) 0.1 k/uL (0-0.7); Eosinophils % (A) 1 %; HCT 38.6 % (39.0-53.0); HGB 12.7 gm/dL (13.0-17.5); Lymphocytes % (A) 19 %; MCH 32.6 pg (25.0-35.0); MCHC 32.9 g/dL (31.0-37.0); MCV 99.1 fL (80.0-100.0); Macrocytosis Slight; Mean Platelet Volume 9.5; Monocytes # (A) 0.4 k/uL (0-1.0); Monocytes % (A) 8 %; Neutrophils # (A) 3.6 k/uL (1.3-7.7); Neutrophils % (A) 68 %; RDW 15.6 % (11.5-15.5); WBC 5.2 k/uL (3.8-10.6)
[2023-06-23 10:37] LABS: Platelet Count 88 k/uL (150-450)
[2023-06-23 10:43] LABS: ALT 35 U/L (4-49); AST 64 U/L (17-59); African American GFR (CKD) 77 (>60 ml/min/1.73 sqM); Albumin 3.1 g/dL (3.5-5.0); Alcohol <10 mg/dL; Alkaline Phosphatase 131 U/L (38-126); Anion Gap 8 mmol/L; Blood Urea Nitrogen 14 mg/dL (9-20); Calcium 9.1 mg/dL (8.4-10.2); Carbon Dioxide 19 mmol/L (22-30); Chloride 114 mmol/L (98-107); Glucose 134 mg/dL (74-99); Non-African American GFR(CKD) 67 (>60 ml/min/1.73 sqM); Potassium 4.2 mmol/L (3.5-5.1); Sodium 141 mmol/L (137-145); Total Bilirubin 2.2 mg/dL (0.2-1.3); Total Protein 6.9 g/dL (6.3-8.2)
[2023-06-23 10:50] LABS: INR 1.4 (<1.2); Partial Thromboplastin Time 27.4 sec (22.0-30.0); Prothrombin Time 13.9 sec (9.0-12.0)
--- NOTE | 2023-06-23 11:06 | XR ---
EXAMINATION TYPE: XR chest 2V DATE OF EXAM: 06/23/2023 10:38 AM COMPARISON: Chest radiographs from 12/19/2018 TECHNIQUE: XR chest 2V Frontal and lateral views of the chest. CLINICAL INDICATION:Male, 62 years old with history of altered mental status; FINDINGS: Lungs/Pleura: There is no evidence of pleural effusion, focal consolidation, or pneumothorax. Pulmonary vascularity: Unremarkable. Heart/mediastinum: Cardiomediastinal silhouette is unremarkable. Musculoskeletal: No acute osseous pathology. IMPRESSION: No acute cardiopulmonary disease/process.
[2023-06-23 11:09] LABS: Amphetamine Screen,Urine Not Detected (NotDetected); Barbiturate Screen,Urine Not Detected (NotDetected); Benzodiazepines Screen,Urine Not Detected (NotDetected); Cocaine Screen,Urine Not Detected (NotDetected); Methadone Screen, Urine Not Detected (NotDetected); Opiate Screen,Urine Not Detected (NotDetected); Oxycodone Screen, Urine Not Detected (NotDetected); Phencyclidine Screen,Urine Not Detected (NotDetected); Tricyclic Antidepressant,Urine Not Detected (NotDetected); Urn Cannabinoid Scrn Detected (NotDetected)
[2023-06-23 11:17] LABS: Lactic Acid, Venous 3.7 mmol/L (0.7-2.0)
[2023-06-23] MEDS ORDERED: SODIUM CHLORIDE 0.9% 500 ML 500 ML IV STA (11:38)
[2023-06-23] MEDS ORDERED: LACTULOSE 20 GM/30 ML CUP PO SCH (11:45)
[2023-06-23 12:20] LABS: Appearance,Urine Clear (Clear); Bilirubin,Urine Negative (Negative); Blood,Urine Negative (Negative); Color,Urine Light Red; Glucose,Urine (UA) 4+ (Negative); Ketones,Urine Negative (Negative); Leukocyte Esterase,Urine Negative (Negative); Nitrite,Urine Negative (Negative); Protein,Urine Negative (Negative); Specific Gravity,Urine 1.016 (1.001-1.035); Urobilinogen,Urine <2.0 mg/dL (<2.0)
--- NOTE | 2023-06-23 12:42 | CT ---
EXAMINATION TYPE: CT brain wo con CT DLP: 1261 mGycm, Automated exposure control for dose reduction was used. DATE OF EXAM: 06/23/2023 10:32 AM COMPARISON: 12/19/2019. CLINICAL INDICATION:Male, 62 years old with history of Altered mental status, TECHNIQUE: Brain: Axial CT images of the brain were obtained with coronal and sagittal reformats created and rev iewed. Contrast used: None. Oral contrast used: None. FINDINGS: Brain: Extra-axial spaces: No abnormal extra-axial fluid collections. Ventricular system: Within normal limits Cerebral parenchyma: No acute intraparenchymal hemorrhage or mass effect. The simental-white junction is well differentiated. Cerebellum: Unremarkable. Mass effect: No evidence of midline shift. Intracranial vasculature: Atherosclerotic calcifications of the intracranial vessels. Soft tissues: Normal. Calvarium/osseous structures: No depressed skull fracture. Paranasal sinuses and mastoid air cells: Mild scattered paranasal sinus disease. Visualized orbits: Orbital contents are intact. IMPRESSION: No acute intracranial process.
[2023-06-23] MEDS ORDERED: NALOXONE 0.4 MG/ML 1 ML VIAL IV PRN (12:54)
[2023-06-23] MEDS ORDERED: HALOPERIDOL LACTATE 5 MG/ML 1 ML VIAL IVP STA (13:53)
[2023-06-23] MEDS ORDERED: IPRATROPIUM-ALBUTEROL 3 ML NEB INHALATION PRN (15:57)
[2023-06-23] MEDS ORDERED: ALBUTEROL NEBULIZED 2.5 MG/3 ML INHALATION PRN (15:57)
--- NOTE | 2023-06-23 16:31 | P.HPIM ---
History of Present Illness H&P Date: 06/23/23 Patient is a 62-year-old male with history of known alcoholic cirrhosis with prior esophageal varices and hepatic encephalopathy, COPD, prior stroke, diabetes, hypertension presenting with altered mentation. Patient is a poor historian. Patient also received sedative medications in the ED. Per report, family was concerned about altered mentation and decided to bring patient to the hospital. In the ED, temperature was 97.7, pulse 105, respiratory rate 12, blood pressure 203/177, saturating at 99% on room air. WBC 5.2, hemoglobin 12.7, platelets 88, PT was 13.9, INR 1.4, sodium 141, chloride 114, bicarb 19, anion gap 8, creatinine 1.16, lactate 2.7, total bilirubin 2.2, AST 64, ALT 35, ALP and 31, ammonia 150, troponin negative, urine shows 4+ glucose, toxicology shows positive for marijuana, respiratory viral panel negative. Head CT does not show any acute process. Chest x-ray independently interpreted, shows no acute process. Patient admitted for hepatic encephalopathy. Pertinent positives and negatives as discussed in HPI, a complete review of systems was performed and all other systems are negative. Patient seen and examined at bedside. Vital signs reviewed General: nontoxic, no distress, appears older than stated age, sedated Derm: warm, dry Head: atraumatic, normocephalic, symmetric Eyes: no lid lag, anicteric sclera, pupils equal round reactive to light ENT: Nose and ears atraumatic Neck: No thyromegaly, supple Mouth: no lip lesion, mucus membranes moist Cardiovascular: S1S2 reg, systolic murmur, no edema Lungs: clear to auscultation bilateral, no rhonchi, no rales, no wheeze, no accessory muscle use Abdominal: soft, nontender to palpation, no guarding, no appreciable organomegaly Ext: no gross muscle atrophy, no contractures Neuro: Moving all extremities, sedated Psych: unable to assess Assessment/Plan: Active: Hepatic encephalopathy Hyperammonemia Alcoholic liver cirrhosis Elevated INR Thrombocytopenia Non-anion gap metabolic acidosis Mild normocytic anemia Lactic acidosis Malignant hypertension -Lactulose, titrate based on 2-3 bowel movements per day -Continue home rifaximin -Blood cultures pending -MELD score of 15 points, approximately 6% estimated 3 month mortality -Elevated INR, thrombocytopenia, normocytic anemia likely in the setting of cirrhosis -Lactic acidosis possibly type B in the setting of liver cirrhosis, continue to trend -Increase Lasix to 40 daily, started on Aldactone 1 mg daily, should help with malignant hypertension -Continue home lisinopril Chronic: COPD Hypothyroidism Hypertension The patient is admitted with an anticipated greater than 2 midnight stay as inpatient status for evaluation of hepatic encephalopathy. Surrogate decision-maker: Mother CODE STATUS: Full code DVT prophylaxis: Subcu heparin Anticipated discharge date: Pending clinical course Anticipated discharge place: Pending clinical course A total of 65 minutes was spent on the care of this complex patient more than 50% of the time was spent in counseling and care coordination. Past Medical History Past Medical History: COPD, CVA/TIA, Diabetes Mellitus, Hearing Disorder / Deafness, Hyperlipidemia, Hypertension, Liver Disease, Thyroid Disorder Additional Past Medical History / Comment(s): Pt recently admitted to [facility] on 08/05/18 with acute hepatic encephalopathy/increased ammonia levels. Other hx: Alcoholism, alcoholic liver cirrhosis, history of hepatic encephalopathy, portal hypertension and esophageal varices and portal hypertensive gastropathy, significant other states pt has not drank alcohol since March 2018, CVA, kidney stones, hypothyroidism, L ear deafness. Last Myocardial Infarction Date:: unknown History of Any Multi-Drug Resistant Organisms: None Reported Past Surgical History: Joint Replacement Additional Past Surgical History / Comment(s): Right nephrectomy as an for nonfunctioning kidney, bilateral total knee surgery, liver drain or stents done at [facility], EGD Past Anesthesia/Blood Transfusion Reactions: No Reported Reaction Additional Past Anesthesia/Blood Transfusion Reaction / Comment(s): blood trandfusion - no known reaction Past Psychological History: Bipolar, Depression Past Alcohol Use History: None Reported Past Drug Use History: None Reported - Past Family History Mother Family Medical History: Cancer Additional Family Medical History / Comment(s): skin cancer Father History Unknown: Yes Additional Family Medical History / Comment(s): pt was raised buy his step dad. Medications and Allergies Home Medications Medication Instructions Recorded Confirmed Type Furosemide [Lasix] 20 mg PO DAILY 08/05/18 06/23/23 History Ferrous Sulfate [Iron (65 MG 325 mg PO MOWEFR 08/18/18 06/23/23 History Elemental)] Multivitamins, Thera [Multivitamin 1 tab PO DAILY 09/14/19 06/23/23 History (formulary)] Rifaximin [Xifaxan] 550 mg PO AC-BID 09/14/19 06/23/23 History lisinopriL [Zestril] 10 mg PO DAILY 09/14/19 06/23/23 History Albuterol Inhaler [Ventolin Hfa 2 puff INHALATION RT-QID PRN 06/23/23 06/23/23 History Inhaler] Ipratropium-Albuterol Nebulize 3 ml INHALATION RT-Q6H PRN 06/23/23 06/23/23 History [Duoneb 0.5 mg-3 mg/3 ml Soln] Lactulose 30 gm PO QID 06/23/23 06/23/23 History Levothyroxine Sodium [Synthroid] 125 mcg PO DAILY 06/23/23 06/23/23 History Thiamine [Vitamin B-1] 100 mg PO DAILY 06/23/23 06/23/23 History Allergies Allergy/AdvReac Type Severity Reaction Status Date / Time Penicillins Allergy Unknown Verified 06/23/23 12:12 Childhood Physical Exam Vitals: Vital Signs Temp Pulse Resp BP Pulse Ox 06/23/23 10:38 102 H 15 177/82 94 L 06/23/23 10:01 93 15 195/73 95 06/23/23 09:12 97.7 F 105 H 12 203/177 99 Intake and Output 06/23/23 06/23/23 06/23/23 06:59 14:59 22:59 Other: Weight 86.183 kg Results CBC & Chem 7: 06/23/23 10:01 06/23/23 10:01 Labs: Abnormal Lab Results - Last 24 Hours (Table) 06/23/23 06/23/23 06/23/23 Range/Units 10:01 10:01 10:01 RBC 3.90 L (4.30-5.90) m/uL Hgb 12.7 L (13.0-17.5) gm/dL Hct 38.6 L (39.0-53.0) % RDW 15.6 H (11.5-15.5) % Plt Count 88 L (150-450) k/uL PT 13.9 H (9.0-12.0) sec INR 1.4 H (<1.2) Chloride (98-107) mmol/L Carbon Dioxide (22-30) mmol/L Glucose (74-99) mg/dL Plasma Lactic Acid Iker (0.7-2.0) mmol/L Total Bilirubin (0.2-1.3) mg/dL AST (17-59) U/L Alkaline Phosphatase (38-126) U/L Ammonia (<30) umol/L Albumin (3.5-5.0) g/dL Urine Glucose (UA) 4+ H (Negative) U Marijuana (THC) Screen Detected H (NotDetected) 06/23/23 06/23/23 Range/Units 10:01 10:01 RBC (4.30-5.90) m/uL Hgb (13.0-17.5) gm/dL Hct (39.0-53.0) % RDW (11.5-15.5) % Plt Count (150-450) k/uL PT (9.0-12.0) sec INR (<1.2) Chloride 114 H (98-107) mmol/L Carbon Dioxide 19 L (22-30) mmol/L Glucose 134 H (74-99) mg/dL Plasma Lactic Acid Iker 3.7 H* (0.7-2.0) mmol/L Total Bilirubin 2.2 H (0.2-1.3) mg/dL AST 64 H (17-59) U/L Alkaline Phosphatase 131 H (38-126) U/L Ammonia 150 H (<30) umol/L Albumin 3.1 L (3.5-5.0) g/dL Urine Glucose (UA) (Negative) U Marijuana (THC) Screen (NotDetected)
[2023-06-23] MEDS ORDERED: LORazepam 2 MG/ML INJ IV PRN ×2 (17:44)
[2023-06-23 19:54] LABS: Glucose,Whole Blood 83 mg/dL (70-110)
[2023-06-23] MEDS: LACTULOSE 20 GM/30 ML CUP PO SCH (23:25)
[2023-06-24] MEDS: RIFAXIMIN 550 MG TABLET PO SCH ×3 (00:22→17:04)
[2023-06-24] MEDS: LACTULOSE 20 GM/30 ML CUP PO SCH ×5 (00:22→20:16)
[2023-06-24] MEDS: HEPARIN SODIUM,PORCINE/PF 5,000 UNIT/0.5 ML SYRINGE SQ SCH ×3 (00:23→15:06)
[2023-06-24] MEDS: LORazepam 2 MG/ML INJ IV PRN ×5 (03:47→18:42)
[2023-06-24 05:59] LABS: Glucose,Whole Blood 97 mg/dL (70-110)
[2023-06-24] MEDS: LEVOTHYROXINE 125 MCG TAB PO SCH (06:52)
[2023-06-24] MEDS ORDERED: FUROSEMIDE 20 MG TAB PO SCH (09:00)
[2023-06-24] MEDS: FUROSEMIDE 40 MG TAB PO SCH (09:08)
[2023-06-24] MEDS: MULTIVITAMINS, THERA 1 EACH TAB PO SCH (09:08)
[2023-06-24] MEDS: SPIRONOLACTONE 25 MG TAB PO SCH (09:08)
[2023-06-24] MEDS: THIAMINE 100 MG TAB PO SCH (09:08)
[2023-06-24] MEDS: lisinopriL 10 MG TAB PO SCH (09:08)
[2023-06-24 09:39] LABS: Basophils % (A) 0 %; Eosinophils # (A) 0.2 k/uL (0-0.7); Eosinophils % (A) 4 %; HCT 35.5 % (39.0-53.0); HGB 11.7 gm/dL (13.0-17.5); Lymphocytes # (A) 1.3 k/uL (1.0-4.8); Lymphocytes % (A) 31 %; MCH 32.3 pg (25.0-35.0); MCHC 32.9 g/dL (31.0-37.0); MCV 98.2 fL (80.0-100.0); Macrocytosis Slight; Mean Platelet Volume 9.7; Monocytes # (A) 0.3 k/uL (0-1.0); Monocytes % (A) 8 %; Neutrophils # (A) 2.3 k/uL (1.3-7.7); Neutrophils % (A) 54 %; RBC 3.62 m/uL (4.30-5.90); RDW 15.4 % (11.5-15.5); WBC 4.2 k/uL (3.8-10.6)
[2023-06-24 10:33] LABS: ALT 32 U/L (4-49); AST 58 U/L (17-59); African American GFR (CKD) >90 (>60 ml/min/1.73 sqM); Albumin 2.4 g/dL (3.5-5.0); Alkaline Phosphatase 94 U/L (38-126); Anion Gap 4 mmol/L; Blood Urea Nitrogen 15 mg/dL (9-20); Calcium 8.6 mg/dL (8.4-10.2); Carbon Dioxide 21 mmol/L (22-30); Chloride 115 mmol/L (98-107); Glucose 71 mg/dL (74-99); Magnesium 1.9 mg/dL (1.6-2.3); Non-African American GFR(CKD) 79 (>60 ml/min/1.73 sqM); Potassium 4.1 mmol/L (3.5-5.1); Sodium 140 mmol/L (137-145); Total Protein 5.9 g/dL (6.3-8.2)
[2023-06-24 10:45] LABS: Platelet Count 72 k/uL (150-450)
[2023-06-24 11:29] LABS: Glucose,Whole Blood 114 mg/dL (70-110)
--- NOTE | 2023-06-24 13:06 | P.PN ---
Subjective Progress Note Date: 06/24/23 Hospital Course: Patient is a 62-year-old male with history of known alcoholic cirrhosis with prior esophageal varices and hepatic encephalopathy, COPD, prior stroke, diabetes, hypertension presenting with altered mentation. In the ED, temperature was 97.7, pulse 105, respiratory rate 12, blood pressure 203/177, saturating at 99% on room air. WBC 5.2, hemoglobin 12.7, platelets 88, PT was 13.9, INR 1.4, sodium 141, chloride 114, bicarb 19, anion gap 8, creatinine 1.16, lactate 2.7, total bilirubin 2.2, AST 64, ALT 35, ALP and 31, ammonia 150, troponin negative, urine shows 4+ glucose, toxicology shows positive for marijuana, respiratory viral panel negative. Head CT does not show any acute process. Chest x-ray independently interpreted, shows no acute process. Patient admitted for hepatic encephalopathy. Encephalopathy improving, patient having bowel movements. Subjective: Patient seen and examined at bedside. No acute events overnight. Patient is now having bowel movements. Pertinent positives and negatives as discussed above, a complete review of systems was performed and all other systems are negative. Vitals Signs Reviewed. General: nontoxic, no distress, appears older than stated age Derm: warm, dry Head: atraumatic, normocephalic, symmetric Eyes: EOMI, no lid lag, anicteric sclera Mouth: no lip lesion, mucus membranes moist Cardiovascular: S1S2 reg, no murmur Lungs: CTA bilateral, no rhonchi, no rales , no accessory muscle use Abdominal: soft, nontender to palpation, no guarding, no appreciable organomegaly Ext: no gross muscle atrophy, no edema, no contractures Neuro: CN II-XI grossly intact, no focal neuro deficits, asterixis Psych: Alert, oriented 2, appropriate affect Data Reviewed Today: Pertinent Labs: WBC 4.2, hemoglobin 11.7, platelets 72, bicarb 21, creatinine 1.00, magnesium 1.9, glucose range between 71-114 Imaging: No new imaging Assessment and Plan: Active: Hepatic encephalopathy Hyperammonemia Alcoholic liver cirrhosis Elevated INR Thrombocytopenia Non-anion gap metabolic acidosis, improving Mild normocytic anemia Lactic acidosis, type B Malignant hypertension, resolved suspected etoh withdrawal -Lactulose, titrate based on 2-3 bowel movements per day -Continue home rifaximin -Blood cultures positive likely contaminant, repeat blood cultures -MELD score of 15 points, approximately 6% estimated 3 month mortality -Elevated INR, thrombocytopenia, normocytic anemia likely in the setting of cirrhosis -Increase Lasix to 40 daily, started on Aldactone 100 mg daily -Continue home lisinopril -patient is not oriented, not able to leave AMA -Also on CIWA protocol, IV ativan PRN, unsure when last Etoh drink was Chronic: COPD Hypothyroidism Hypertension DVT ppx: heparin Code status: full code Anticipated discharge place: pending clinical course Anticipated discharge time: pending clinical course Objective - Vital Signs Vital signs: Vital Signs Temp 98.2 F 06/24/23 09:04 Pulse 76 06/24/23 11:36 Resp 20 06/24/23 11:36 BP 153/61 06/24/23 11:36 Pulse Ox 96 06/24/23 11:36 FiO2 Intake & Output 06/23/23 06/24/23 06/24/23 18:59 06:59 18:59 Output Total 1400 1300 Balance -1400 -1300 Weight 86.183 kg 88.2 kg Output: Urine 1400 1300 Straight 700 300 Other: Voiding Method Indwelling Catheter Urinal Urinal # Voids 0 1 # Bowel Movements 0 1 - Labs CBC & Chem 7: 06/24/23 09:11 06/24/23 09:11 Labs: Abnormal Lab Results - Last 24 Hours (Table) 06/24/23 06/24/23 06/24/23 Range/Units 09:11 09:11 11:28 RBC 3.62 L (4.30-5.90) m/uL Hgb 11.7 L (13.0-17.5) gm/dL Hct 35.5 L (39.0-53.0) % Plt Count 72 L (150-450) k/uL Chloride 115 H (98-107) mmol/L Carbon Dioxide 21 L (22-30) mmol/L Glucose 71 L (74-99) mg/dL POC Glucose (mg/dL) 114 H (70-110) mg/dL Total Bilirubin 2.0 H (0.2-1.3) mg/dL Total Protein 5.9 L (6.3-8.2) g/dL Albumin 2.4 L (3.5-5.0) g/dL Microbiology - Last 24 Hours (Table) 06/23/23 09:45 Blood Culture Gram Stain - Preliminary Blood
[2023-06-24] MEDS ORDERED: VANCOMYCIN IV PER PHARMACY 1 EACH MISC MISCELLANE PRN (13:21)
[2023-06-24] MEDS: VANCOMYCIN 1,500 MG in SODIUM CHLORIDE 0.9% 500 ML 500 ML IVPB SCH (15:28)
[2023-06-24 16:16] LABS: Glucose,Whole Blood 92 mg/dL (70-110)
[2023-06-24 20:01] LABS: Glucose,Whole Blood 95 mg/dL (70-110)
[2023-06-25] MEDS: HEPARIN SODIUM,PORCINE/PF 5,000 UNIT/0.5 ML SYRINGE SQ SCH ×3 (01:09→16:04)
[2023-06-25] MEDS: VANCOMYCIN 1,500 MG in SODIUM CHLORIDE 0.9% 500 ML 500 ML IVPB SCH ×2 (03:06→16:04)
[2023-06-25 06:09] LABS: Glucose,Whole Blood 78 mg/dL (70-110)
[2023-06-25] MEDS: LEVOTHYROXINE 125 MCG TAB PO SCH (06:32)
[2023-06-25] MEDS: RIFAXIMIN 550 MG TABLET PO SCH ×2 (06:32→16:04)
[2023-06-25 06:50] LABS: Basophils % (A) 1 %; Eosinophils # (A) 0.1 k/uL (0-0.7); Eosinophils % (A) 5 %; HCT 32.5 % (39.0-53.0); Lymphocytes # (A) 0.6 k/uL (1.0-4.8); Lymphocytes % (A) 31 %; MCH 32.9 pg (25.0-35.0); MCHC 33.7 g/dL (31.0-37.0); MCV 97.7 fL (80.0-100.0); Mean Platelet Volume 9.2; Monocytes # (A) 0.2 k/uL (0-1.0); Monocytes % (A) 10 %; Neutrophils % (A) 51 %; Platelet Count 62 k/uL (150-450); RBC 3.33 m/uL (4.30-5.90); RDW 15.2 % (11.5-15.5); WBC 1.9 k/uL (3.8-10.6)
[2023-06-25] MEDS: LORazepam 2 MG/ML INJ IV PRN (06:55)
[2023-06-25 07:03] LABS: ALT 28 U/L (4-49); AST 52 U/L (17-59); African American GFR (CKD) >90 (>60 ml/min/1.73 sqM); Albumin 2.2 g/dL (3.5-5.0); Alkaline Phosphatase 87 U/L (38-126); Anion Gap 2 mmol/L; Blood Urea Nitrogen 13 mg/dL (9-20); Carbon Dioxide 25 mmol/L (22-30); Chloride 112 mmol/L (98-107); Glucose 78 mg/dL (74-99); Non-African American GFR(CKD) 80 (>60 ml/min/1.73 sqM); Potassium 3.9 mmol/L (3.5-5.1); Sodium 139 mmol/L (137-145); Total Bilirubin 1.7 mg/dL (0.2-1.3); Total Protein 5.1 g/dL (6.3-8.2)
[2023-06-25] MEDS: THIAMINE 100 MG TAB PO SCH (09:00)
[2023-06-25] MEDS: lisinopriL 10 MG TAB PO SCH (09:00)
[2023-06-25] MEDS: FUROSEMIDE 40 MG TAB PO SCH (09:00)
[2023-06-25] MEDS: LACTULOSE 20 GM/30 ML CUP PO SCH ×5 (09:00→21:28)
[2023-06-25] MEDS: MULTIVITAMINS, THERA 1 EACH TAB PO SCH (09:00)
[2023-06-25] MEDS: SPIRONOLACTONE 25 MG TAB PO SCH (09:00)
[2023-06-25 11:42] LABS: Glucose,Whole Blood 104 mg/dL (70-110)
[2023-06-25] MEDS ORDERED: NICOTINE 21MG/24HR PATCH TRANSDERM STA (11:44)
--- NOTE | 2023-06-25 13:52 | P.PN ---
Subjective Progress Note Date: 06/25/23 Hospital Course: Patient is a 62-year-old male with history of known alcoholic cirrhosis with pr ior esophageal varices and hepatic encephalopathy, COPD, prior stroke, diabetes, hypertension presenting with altered mentation. In the ED, temperature was 97.7, pulse 105, respiratory rate 12, blood pressure 203/177, saturating at 99% on room air. WBC 5.2, hemoglobin 12.7, platelets 88, PT was 13.9, INR 1.4, sodium 141, chloride 114, bicarb 19, anion gap 8, creatinine 1.16, lactate 2.7, total bilirubin 2.2, AST 64, ALT 35, ALP and 31, ammonia 150, troponin negative, urine shows 4+ glucose, toxicology shows positive for marijuana, respiratory viral panel negative. Head CT does not show any acute process. Chest x-ray independently interpreted, shows no acute process. Patient admitted for hepatic encephalopathy. Encephalopathy improving, patient having bowel movements. Blood cultures positive for coag negative staph, likely contaminant. He has had a blood cultures pending. Patient currently on IV vancomycin. Subjective: Patient seen and examined at bedside. No acute events overnight. Patient is now having bowel movements. Pertinent positives and negatives as discussed above, a complete review of systems was performed and all other systems are negative. Vitals Signs Reviewed. General: nontoxic, no distress, appears older than stated age Derm: warm, dry Head: atraumatic, normocephalic, symmetric Eyes: EOMI, no lid lag, anicteric sclera Mouth: no lip lesion, mucus membranes moist Cardiovascular: S1S2 reg, no murmur Lungs: CTA bilateral, no rhonchi, no rales , no accessory muscle use Abdominal: soft, nontender to palpation, no guarding, no appreciable organomegaly Ext: no gross muscle atrophy, no edema, no contractures Neuro: CN II-XI grossly intact, no focal neuro deficits, asterixis Psych: Alert, oriented 2, appropriate affect Data Reviewed Today: Pertinent Labs: WBC 1.9, 1111, platelets 62, creatinine 0.99, glucose ranged between 78-104 Imaging: No new imaging Assessment and Plan: Active: Hepatic encephalopathy Hyperammonemia Alcoholic liver cirrhosis Bacteremia, suspected contaminant Elevated INR Pancytopenia Non-anion gap metabolic acidosis, resolved Lactic acidosis, type B Malignant hypertension, resolved History of alcohol dependence -Lactulose, titrate based on 2-3 bowel movements per day -Continue home rifaximin -Blood cultures positive for coagulase-negative staph likely contaminant, repeat blood cultures -Currently on IV vancomycin -MELD score of 15 points, approximately 6% estimated 3 month mortality -Elevated INR, and pancytopenia likely in the setting of cirrhosis -On Lasix 40 daily, started on Aldactone 100 mg daily -Continue home lisinopril -patient is not oriented, not able to leave AMA -Reportedly per PCP, patient has been in remission for alcohol dependence Chronic: COPD Hypothyroidism Hypertension DVT ppx: heparin Code status: full code Anticipated discharge place: pending clinical course Anticipated discharge time: pending clinical course Objective - Vital Signs Vital signs: Vital Signs Temp 97.8 F 06/25/23 12:00 Pulse 76 06/25/23 12:00 Resp 18 06/25/23 12:27 BP 145/64 06/25/23 12:00 Pulse Ox 95 06/25/23 12:00 FiO2 Intake & Output 06/24/23 06/25/23 06/25/23 18:59 06:59 18:59 Intake Total 360 Balance 360 Weight 99 kg Intake: Oral 360 Other: Voiding Method Urinal Toilet Toilet # Voids 1 1 1 # Bowel Movements 1 - Labs CBC & Chem 7: 06/25/23 06:22 06/25/23 06:22 Labs: Abnormal Lab Results - Last 24 Hours (Table) 06/25/23 06/25/23 Range/Units 06:22 06:22 WBC 1.9 L (3.8-10.6) k/uL RBC 3.33 L (4.30-5.90) m/uL Hgb 11.0 L (13.0-17.5) gm/dL Hct 32.5 L (39.0-53.0) % Plt Count 62 L (150-450) k/uL Neutrophils # 1.0 L (1.3-7.7) k/uL Lymphocytes # 0.6 L (1.0-4.8) k/uL Chloride 112 H (98-107) mmol/L Calcium 8.0 L (8.4-10.2) mg/dL Total Bilirubin 1.7 H (0.2-1.3) mg/dL Total Protein 5.1 L (6.3-8.2) g/dL Albumin 2.2 L (3.5-5.0) g/dL Microbiology - Last 24 Hours (Table) 06/23/23 09:30 Blood Culture Gram Stain - Preliminary Blood Blood Culture - Preliminary Coagulase Negative Staph Coagulase Negative Staph#2 06/23/23 09:45 Blood Culture Gram Stain - Preliminary Blood Blood Culture - Preliminary Gram Neg Bacilli Coagulase Negative Staph Coagulase Negative Staph#2
[2023-06-25 16:44] LABS: Glucose,Whole Blood 107 mg/dL (70-110)
[2023-06-26] MEDS: HEPARIN SODIUM,PORCINE/PF 5,000 UNIT/0.5 ML SYRINGE SQ SCH ×3 (00:01→16:33)
[2023-06-26] MEDS: VANCOMYCIN 1,500 MG in SODIUM CHLORIDE 0.9% 500 ML 500 ML IVPB SCH ×2 (01:41→14:17)
[2023-06-26 06:16] LABS: Glucose,Whole Blood 96 mg/dL (70-110)
[2023-06-26] MEDS: RIFAXIMIN 550 MG TABLET PO SCH ×2 (06:48→16:33)
[2023-06-26] MEDS: LEVOTHYROXINE 125 MCG TAB PO SCH (06:48)
[2023-06-26] MEDS: LACTULOSE 20 GM/30 ML CUP PO SCH ×4 (08:59→20:18)
[2023-06-26] MEDS: lisinopriL 10 MG TAB PO SCH (09:00)
[2023-06-26] MEDS: SPIRONOLACTONE 25 MG TAB PO SCH (09:00)
[2023-06-26] MEDS: MULTIVITAMINS, THERA 1 EACH TAB PO SCH (09:00)
[2023-06-26] MEDS: THIAMINE 100 MG TAB PO SCH (09:00)
[2023-06-26] MEDS: FUROSEMIDE 40 MG TAB PO SCH (09:00)
[2023-06-26 11:34] LABS: Glucose,Whole Blood 86 mg/dL (70-110)
[2023-06-26] MEDS ORDERED: VANCOMYCIN TROUGH DUE 1 EACH MISC MISCELLANE ONE (13:00)
[2023-06-26 13:33] LABS: Basophils % (A) 1 %; Eosinophils # (A) 0.1 k/uL (0-0.7); Eosinophils % (A) 3 %; HCT 37.3 % (39.0-53.0); HGB 12.5 gm/dL (13.0-17.5); Lymphocytes # (A) 0.6 k/uL (1.0-4.8); Lymphocytes % (A) 19 %; MCH 32.7 pg (25.0-35.0); MCHC 33.5 g/dL (31.0-37.0); MCV 97.4 fL (80.0-100.0); Mean Platelet Volume 9.5; Monocytes # (A) 0.3 k/uL (0-1.0); Monocytes % (A) 11 %; Neutrophils # (A) 1.9 k/uL (1.3-7.7); Neutrophils % (A) 63 %; RBC 3.83 m/uL (4.30-5.90); WBC 2.9 k/uL (3.8-10.6)
[2023-06-26 13:41] LABS: Platelet Count 70 k/uL (150-450)
[2023-06-26 13:46] LABS: ALT 33 U/L (4-49); AST 59 U/L (17-59); African American GFR (CKD) 83 (>60 ml/min/1.73 sqM); Albumin 2.6 g/dL (3.5-5.0); Alkaline Phosphatase 104 U/L (38-126); Anion Gap 6 mmol/L; Blood Urea Nitrogen 10 mg/dL (9-20); Calcium 8.8 mg/dL (8.4-10.2); Carbon Dioxide 22 mmol/L (22-30); Chloride 110 mmol/L (98-107); Glucose 120 mg/dL (74-99); Magnesium 1.7 mg/dL (1.6-2.3); Non-African American GFR(CKD) 72 (>60 ml/min/1.73 sqM); Potassium 3.9 mmol/L (3.5-5.1); Sodium 138 mmol/L (137-145); Total Bilirubin 1.9 mg/dL (0.2-1.3); Total Protein 6.3 g/dL (6.3-8.2)
--- NOTE | 2023-06-26 14:37 | P.PN ---
Subjective Progress Note Date: 06/26/23 Hospital Course: Patient is a 62-year-old male with history of known alcoholic cirrhosis with prior esophageal varices and hepatic encephalopathy, COPD, prior stroke, diabetes, hypertension presenting with altered mentation. In the ED, temperature was 97.7, pulse 105, respiratory rate 12, blood pressure 203/177, saturating at 99% on room air. WBC 5.2, hemoglobin 12.7, platelets 88, PT was 13.9, INR 1.4, sodium 141, chloride 114, bicarb 19, anion gap 8, creatinine 1.16, lactate 2.7, total bilirubin 2.2, AST 64, ALT 35, ALP and 31, ammonia 150, troponin negative, urine shows 4+ glucose, toxicology shows positive for marijuana, respiratory viral panel negative. Head CT does not show any acute process. Chest x-ray independently interpreted, shows no acute process. Patient admitted for hepatic encephalopathy. Encephalopathy improving, patient having bowel movements. Blood cultures positive for coag negative staph, likely contaminant. Repeat blood cultures are negative. Vancomycin discontinued. Subjective: Patient seen and examined at bedside. No acute events overnight. Pertinent positives and negatives as discussed above, a complete review of systems was performed and all other systems are negative. Vitals Signs Reviewed. General: nontoxic, no distress, appears older than stated age Derm: warm, dry Head: atraumatic, normocephalic, symmetric Eyes: EOMI, no lid lag, anicteric sclera Mouth: no lip lesion, mucus membranes moist Cardiovascular: S1S2 reg, no murmur Lungs: CTA bilateral, no rhonchi, no rales , no accessory muscle use Abdominal: soft, nontender to palpation, no guarding, no appreciable organomegaly Ext: no gross muscle atrophy, no edema, no contractures Neuro: CN II-XI grossly intact, no focal neuro deficits, asterixis Psych: Alert, oriented 3, appropriate affect Data Reviewed Today: Pertinent Labs: WBC 2.9, hemoglobin 12.5, platelet 70, creatinine 1.08 Imaging: No new imaging Assessment and Plan: Active: Hepatic encephalopathy, resolving Hyperammonemia Alcoholic liver cirrhosis Bacteremia, contaminant Elevated INR Pancytopenia Non-anion gap metabolic acidosis, resolved Lactic acidosis, type B Malignant hypertension, resolved History of alcohol dependence -Lactulose, titrate based on 2-3 bowel movements per day -Continue home rifaximin -Blood cultures positive for coagulase-negative staph likely contaminant, repeat blood cultures negative growth to date -Vancomycin discontinued -MELD score of 15 points, approximately 6% estimated 3 month mortality -Elevated INR, and pancytopenia likely in the setting of cirrhosis -On Lasix 40 daily, on Aldactone 100 mg daily -Continue home lisinopril -Encephalopathy has improved Chronic: COPD Hypothyroidism Hypertension DVT ppx: heparin Code status: full code Anticipated discharge place: Home Anticipated discharge time: Likely tomorrow Objective - Vital Signs Vital signs: Vital Signs Temp 98.3 F 06/26/23 11:30 Pulse 76 06/26/23 11:30 Resp 16 06/26/23 11:30 BP 122/54 06/26/23 11:30 Pulse Ox 98 06/26/23 11:30 FiO2 Intake & Output 06/25/23 06/26/23 06/26/23 18:59 06:59 18:59 Intake Total 540 240 240 Output Total 1150 900 400 Balance -610 660 -160 Intake: Oral 540 240 240 Output: Urine 1150 900 400 Other: Voiding Method Toilet Toilet Toilet Urinal Urinal Urinal # Voids 1 1 1 # Bowel Movements 1 1 - Labs CBC & Chem 7: 06/26/23 13:16 06/26/23 13:16 Labs: Abnormal Lab Results - Last 24 Hours (Table) 06/26/23 06/26/23 Range/Units 13:16 13:16 WBC 2.9 L (3.8-10.6) k/uL RBC 3.83 L (4.30-5.90) m/uL Hgb 12.5 L (13.0-17.5) gm/dL Hct 37.3 L (39.0-53.0) % Plt Count 70 L (150-450) k/uL Lymphocytes # 0.6 L (1.0-4.8) k/uL Chloride 110 H (98-107) mmol/L Glucose 120 H (74-99) mg/dL Total Bilirubin 1.9 H (0.2-1.3) mg/dL Albumin 2.6 L (3.5-5.0) g/dL Microbiology - Last 24 Hours (Table) 06/23/23 09:30 Blood Culture Gram Stain - Final Blood Blood Culture - Final Coagulase Negative Staph Coagulase Negative Staph#2 06/23/23 09:45 Blood Culture Gram Stain - Final Blood Blood Culture - Final Coagulase Negative Staph Pseudomonas luteola Coagulase Negative Staph#2 06/24/23 13:44 Blood Culture - Preliminary Blood
[2023-06-26] MEDS ORDERED: MELATONIN 5 MG TABLET PO ONE (20:16)
[2023-06-26] MEDS ORDERED: NICOTINE 7MG/24HR PATCH TRANSDERM STA (21:59)
[2023-06-27] MEDS: HEPARIN SODIUM,PORCINE/PF 5,000 UNIT/0.5 ML SYRINGE SQ SCH ×2 (00:16→08:41)
[2023-06-27] MEDS: LEVOTHYROXINE 125 MCG TAB PO SCH (06:49)
[2023-06-27] MEDS: RIFAXIMIN 550 MG TABLET PO SCH (06:50)
[2023-06-27 08:40] VITALS: RESP 18
[2023-06-27] MEDS: LACTULOSE 20 GM/30 ML CUP PO SCH (08:41)
[2023-06-27] MEDS: THIAMINE 100 MG TAB PO SCH (08:41)
[2023-06-27] MEDS: FUROSEMIDE 40 MG TAB PO SCH (08:41)
[2023-06-27] MEDS: SPIRONOLACTONE 25 MG TAB PO SCH (08:41)
[2023-06-27] MEDS: lisinopriL 10 MG TAB PO SCH (08:41)
[2023-06-27] MEDS: MULTIVITAMINS, THERA 1 EACH TAB PO SCH (08:44)
[2023-06-27 08:53] LABS: African American GFR (CKD) 85 (>60 ml/min/1.73 sqM); Anion Gap 3 mmol/L; Blood Urea Nitrogen 10 mg/dL (9-20); Calcium 8.9 mg/dL (8.4-10.2); Carbon Dioxide 25 mmol/L (22-30); Chloride 111 mmol/L (98-107); Glucose 75 mg/dL (74-99); Non-African American GFR(CKD) 74 (>60 ml/min/1.73 sqM); Sodium 139 mmol/L (137-145)
[2023-06-27 09:12] LABS: Basophils % (A) 1 %; Eosinophils # (A) 0.2 k/uL (0-0.7); Eosinophils % (A) 5 %; HCT 39.4 % (39.0-53.0); HGB 12.9 gm/dL (13.0-17.5); Lymphocytes # (A) 1.3 k/uL (1.0-4.8); Lymphocytes % (A) 30 %; MCH 32.7 pg (25.0-35.0); MCHC 32.8 g/dL (31.0-37.0); MCV 99.6 fL (80.0-100.0); Macrocytosis Slight; Mean Platelet Volume 10.7; Monocytes # (A) 0.4 k/uL (0-1.0); Monocytes % (A) 10 %; Neutrophils # (A) 2.2 k/uL (1.3-7.7); Neutrophils % (A) 51 %; RBC 3.96 m/uL (4.30-5.90); RDW 15.2 % (11.5-15.5); WBC 4.3 k/uL (3.8-10.6)
[2023-06-27 09:13] LABS: Platelet Count 85 k/uL (150-450)
[2023-06-27 12:07] VITALS: BP 128/76; PULSE 63; TEMP 98
--- NOTE | 2023-06-27 12:12 | P.DS ---
Providers Date of admission: 06/23/23 12:54 Expected date of discharge: 06/27/23 Attending physician: Shayan Tamez MD Primary care physician: [facility] Course: Discharge Diagnosis: Hepatic encephalopathy Hyperammonemia Alcoholic liver cirrhosis Bacteremia, contaminant Elevated INR Pancytopenia Non-anion gap metabolic acidosis Lactic acidosis, type B Malignant hypertension History of alcohol dependence Hospital Course: Patient is a 62-year-old male with history of known alcoholic cirrhosis with prior esophageal varices and hepatic encephalopathy, COPD, prior stroke, diabetes, hypertension presenting with altered mentation. In the ED, temperature was 97.7, pulse 105, respiratory rate 12, blood pressure 203/177, saturating at 99% on room air. WBC 5.2, hemoglobin 12.7, platelets 88, PT was 13.9, INR 1.4, sodium 141, chloride 114, bicarb 19, anion gap 8, creatinine 1.16, lactate 2.7, total bilirubin 2.2, AST 64, ALT 35, ALP and 31, ammonia 150, troponin negative, urine shows 4+ glucose, toxicology shows positive for marijuana, respiratory viral panel negative. Head CT does not show any acute process. Chest x-ray independently interpreted, shows no acute process. Patient admitted for hepatic encephalopathy. Encephalopathy improving, patient having bowel movements. Blood cultures positive for coag negative staph, likely contaminant. Repeat blood cultures are negative. Vancomycin discontinued. Patient being discharged on lactulose and rifaximin. Patient seen and examined at bedside. Vital signs reviewed and stable. General: nontoxic, no distress, appears older than stated age Derm: warm, dry Head: atraumatic, normocephalic, symmetric Eyes: EOMI, no lid lag, anicteric sclera Mouth: no lip lesion, mucus membranes moist Cardiovascular: S1S2 reg, no murmur Lungs: CTA bilateral, no rhonchi, no rales , no accessory muscle use Abdominal: soft, nontender to palpation, no guarding, no appreciable organomegaly Ext: no gross muscle atrophy, no edema, no contractures Neuro: CN II-XI grossly intact, no focal neuro deficits, asterixis Psych: Alert, oriented 3, appropriate affect A total of 36 minutes of time were spent preparing this complex discharge summary. Patient was discharged on 06/27/23 at 11:10. Patient Condition at Discharge: Stable Plan - Discharge Summary Discharge Rx Participant: No New Discharge Prescriptions: New Spironolactone [Aldactone] 100 mg PO DAILY #60 tab Lactulose [Cephulac] 20 gm PO TID #1000 ml Rifaximin [Xifaxan] 550 mg PO AC-BID #60 tab Furosemide [Lasix] 40 mg PO DAILY #60 tab Continue Ferrous Sulfate [Iron (65 MG Elemental)] 325 mg PO MOWEFR Multivitamins, Thera [Multivitamin (formulary)] 1 tab PO DAILY lisinopriL [Zestril] 10 mg PO DAILY Thiamine [Vitamin B-1] 100 mg PO DAILY Levothyroxine Sodium [Synthroid] 125 mcg PO DAILY Ipratropium-Albuterol Nebulize [Duoneb 0.5 mg-3 mg/3 ml Soln] 3 ml INHALATION RT-Q6H PRN PRN Reason: Shortness Of Breath Albuterol Inhaler [Ventolin Hfa Inhaler] 2 puff INHALATION RT-QID PRN PRN Reason: Shortness Of Breath Discontinued Furosemide [Lasix] 20 mg PO DAILY Rifaximin [Xifaxan] 550 mg PO AC-BID Lactulose 30 gm PO QID Discharge Medication List Ferrous Sulfate [Iron (65 MG Elemental)] 325 mg PO MOWEFR 08/18/18 [History] Multivitamins, Thera [Multivitamin (formulary)] 1 tab PO DAILY 09/14/19 [History] lisinopriL [Zestril] 10 mg PO DAILY 09/14/19 [History] Albuterol Inhaler [Ventolin Hfa Inhaler] 2 puff INHALATION RT-QID PRN 06/23/23 [History] Ipratropium-Albuterol Nebulize [Duoneb 0.5 mg-3 mg/3 ml Soln] 3 ml INHALATION RT-Q6H PRN 06/23/23 [History] Levothyroxine Sodium [Synthroid] 125 mcg PO DAILY 06/23/23 [History] Thiamine [Vitamin B-1] 100 mg PO DAILY 06/23/23 [History] Furosemide [Lasix] 40 mg PO DAILY #60 tab 06/27/23 [Rx] Lactulose [Cephulac] 20 gm PO TID #1000 ml 06/27/23 [Rx] Rifaximin [Xifaxan] 550 mg PO AC-BID #60 tab 06/27/23 [Rx] Spironolactone [Aldactone] 100 mg PO DAILY #60 tab 06/27/23 [Rx] Follow up Appointment(s)/Referral(s): [facility] Timur chatterjee [Primary Care Provider] - 1-2 days (please call on normal business hours ) Patient Instructions/Handouts: Hepatic Encephalopathy (DC) Activity/Diet/Wound Care/Special Instructions: Please see your PCP and also your GI physician. Make sure you have 2-3 BM with lactulose. Discharge Disposition: HOME SELF-CARE
== END 2023-06-27 12:50 | disposition home or self-care (01) | DRG 280 ==
LOC: EC 09:06 → 3SCARD 12:54
PROVIDERS: ADMIT Student in an Organized Health Care Education/Training Program; ATTEND Student in an Organized Health Care Education/Training Program
DX: K76.82 Hepatic encephalopathy (principal); K70.30 Alcoholic cirrhosis of liver without ascites; D61.818 Other pancytopenia; J44.9 Chronic obstructive pulmonary disease, unspecified; K76.6 Portal hypertension; E11.9 Type 2 diabetes mellitus without complications; F10.21 Alcohol dependence, in remission; E87.20 Acidosis, unspecified; I10 Essential (primary) hypertension; E03.9 Hypothyroidism, unspecified; E78.5 Hyperlipidemia, unspecified; H91.90 Unspecified hearing loss, unspecified ear; R01.1 Cardiac murmur, unspecified; R79.1 Abnormal coagulation profile; Y90.0 Blood alcohol level of less than 20 mg/100 ml; Z20.822 Contact with and (suspected) exposure to COVID-19; Z96.653 Presence of artificial knee joint, bilateral; Z90.5 Acquired absence of kidney; Z87.19 Personal history of other diseases of the digestive system; Z86.73 Personal history of transient ischemic attack (TIA), and cerebral infarction without residual deficits; Z79.890 Hormone replacement therapy; Z88.0 Allergy status to penicillin; Z79.899 Other long term (current) drug therapy
CPT/HCPCS: 36415; 70450; 71046; 80048; 80053; 80202; 80306; 80320; 81003; 82140; 83605; 83735; 84484; 85025; 85610; 85730; 87040; 87077; 87186; 87636; 93005; 94760; 96361; 96374; 96375; 96376; 99285

== ENCOUNTER 2023-07-11 17:20 | Inpatient (IN) | payer MEDICARE, OTHER ==
[2023-07-11] MEDS ORDERED: SODIUM CHLORIDE 0.9% 1,000 ML IV ONE (17:28)
--- NOTE | 2023-07-11 17:33 | ED ---
Altered Mental Status HPI - General Chief Complaint: Altered Mental Status Stated Complaint: Altered Mental Status Time Seen by Provider: 07/11/23 17:32 - History of Present Illness Initial Comments: Patient is a 62-year-old male presenting to the emergency room via EMS with concerns of altered mental status. According to EMS patient has a history of elevated ammonia levels due to alcoholic cirrhosis along with bacteremia, sepsis that has caused altered mental status in the past. The patient is pleasantly confused with a severe tremor alert and oriented 0 but answering questions. He denies any pain in any location. Upon arrival he is afebrile and normotensive. In addition to his hepatic encephalopathy and alcoholic cirrhosis and bacteremia he has a past medical history significant for CVA, hypothyroidis m, hypertension, hyperlipidemia, in the left ear, COPD and diabetes. - Related Data Home Medications Medication Instructions Recorded Confirmed Ferrous Sulfate [Iron (65 MG 325 mg PO MOWEFR 08/18/18 07/11/23 Elemental)] Multivitamins, Thera [Multivitamin 1 tab PO DAILY 09/14/19 07/11/23 (formulary)] lisinopriL [Zestril] 10 mg PO DAILY 09/14/19 07/11/23 Albuterol Inhaler [Ventolin Hfa 2 puff INHALATION RT-QID PRN 06/23/23 07/11/23 Inhaler] Ipratropium-Albuterol Nebulize 3 ml INHALATION RT-Q6H PRN 06/23/23 07/11/23 [Duoneb 0.5 mg-3 mg/3 ml Soln] Levothyroxine Sodium [Synthroid] 125 mcg PO DAILY 06/23/23 07/11/23 Thiamine [Vitamin B-1] 100 mg PO DAILY 06/23/23 07/11/23 Previous Rx's Medication Instructions Recorded Furosemide [Lasix] 40 mg PO DAILY #60 tab 06/27/23 Lactulose [Cephulac] 20 gm PO TID #1000 ml 06/27/23 Rifaximin [Xifaxan] 550 mg PO AC-BID #60 tab 06/27/23 Spironolactone [Aldactone] 100 mg PO DAILY #60 tab 06/27/23 Allergies Allergy/AdvReac Type Severity Reaction Status Date / Time Penicillins Allergy Unknown Verified 07/11/23 18:13 Childhood Review of Systems ROS Statement: Those systems with pertinent positive or pertinent negative responses have been documented in the HPI. ROS Other: All systems not noted in ROS Statement are negative. Past Medical History Past Medical History: COPD, CVA/TIA, Diabetes Mellitus, Hearing Disorder / Deafness, Hyperlipidemia, Hypertension, Liver Disease, Thyroid Disorder Additional Past Medical History / Comment(s): Pt recently admitted to [facility] on 08/05/18 with acute hepatic encephalopathy/increased ammonia levels. Other hx: Alcoholism, alcoholic liver cirrhosis, history of hepatic encephalopathy, portal hypertension and esophageal varices and portal hypertensive gastropathy, significant other states pt has not drank alcohol since March 2018, CVA, kidney stones, hypothyroidism, L ear deafness. 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 Pt has [facility] therapist that comes to home and is to establish with home care nurse-company unknown. Pt and significant other cannot drive, rides are arranged thru [facility]. Pt's significant other manages his medications. Smoking Status: Current every day smoker Past Alcohol Use History: None Reported Additional Past Alcohol Use History / Comment(s): started smoking 1972 (age 14) currently smokes 1 PPD , pt's stated pt is recovering alcohoic- quit march 2018 Past Drug Use History: None Reported - Past Family History Mother Family Medical History: Cancer Additional Family Medical History / Comment(s): skin cancer Father History Unknown: Yes Additional Family Medical History / Comment(s): pt was raised buy his step dad. General Exam Limitations: altered mental status General appearance: alert, in no apparent distress Head exam: Present: atraumatic, normocephalic, normal inspection Eye exam: Present: normal appearance, PERRL. Absent: scleral icterus, conjunctival injection, periorbital swelling, periorbital tenderness ENT exam: Present: normal exam, mucous membranes moist Neck exam: Present: normal inspection. Absent: tenderness Respiratory exam: Present: normal lung sounds bilaterally. Absent: respiratory distress, wheezes, rales, rhonchi, stridor Cardiovascular Exam: Present: regular rate, normal rhythm, normal heart sounds. Absent: systolic murmur, diastolic murmur, rubs, gallop, clicks GI/Abdominal exam: Present: soft, normal bowel sounds. Absent: distended, tenderness, guarding, rebound, rigid Rectal exam: Present: deferred Extremities exam: Present: normal inspection, other (tremors). Absent: pedal edema, joint swelling Back exam: Present: normal inspection Neurological exam: Present: alert Expanded Patient oriented to: Absent: person, place, time Speech: Present: fluid speech (slow but fluid) Psychiatric exam: Present: flat affect Expanded Focused psych exam: Present: restlessness Skin exam: Present: other (discolored lower extremities) Course Vital Signs 07/11/23 07/11/23 07/11/23 17:23 19:06 20:00 Temperature 98.8 F Pulse Rate 97 94 86 Respiratory 18 18 20 Rate Blood Pressure 112/84 112/84 171/66 O2 Sat by Pulse 100 99 100 Oximetry 07/11/23 07/11/23 21:00 23:26 Temperature Pulse Rate 87 94 Respiratory 16 Rate Blood Pressure 170/70 181/81 O2 Sat by Pulse 100 100 Oximetry Medical Decision Making - Medical Decision Making Was pt. sent in by a medical professional or institution (, PA, CLERK CASHIER, urgent care, hospital, or half-way...) When possible be specific @ -No Did you speak to anyone other than the patient for history (EMS, parent, family, police, friend...)? What history was obtained from this source @ -Yes comments spoke with EMS regarding past medical history and presenting complaint. Did you review nursing and triage notes (agree or disagree)? Why? @ -I reviewed and agree with nursing and triage notes Were old charts reviewed (outside hosp., previous admission, EMS record, old EKG, old radiological studies, urgent care reports/EKG's, half-way records)? Report findings @ -No old charts were reviewed Differential Diagnosis (chest pain, altered mental status, abdominal pain women, abdominal pain men, vaginal bleeding, weakness, fever, dyspnea, syncope, headache, dizziness, GI bleed, back pain, seizure, CVA, palpatations, mental health, musculoskeletal)? @ -Differential Altered Mental Status: Hypoglycemia, DKA, hypercapnia, ETOH, overdose, CO poisoning, trauma, myxedema coma, HTN encephalopathy, infection, encephalitis, psychosis, intercranial hemorrhage, hepatic encephalopathy, meningitis, CVA, this is not meant to be an all-inclusive list EKG interpreted by me (3pts min.). @ -Sinus rhythm, ventricular rate 88 bpm, MT interval 151 ms, QRS duration 89 ms, QT/QTC 383/429 ms, PRT axes 60, 15, 70 X-rays interpreted by me (1pt min.). @ -Chest x-ray CT interpreted by me (1pt min.). @ -None done U/S interpreted by me (1pt. min.). @ -None done What testing was considered but not performed or refused? (CT, X-rays, U/S, labs)? Why? @ -None What meds were considered but not given or refused? Why? @ -None Did you discuss the management of the patient with other professionals (professionals i.e. , PA, CLERK CASHIER, lab, RT, psych nurse, manager social media, it support consultant, teacher, second officer, registered nurse hh case manager)? Give summary @ -No Was smoking cessation discussed for >3mins.? @ -No Was critical care preformed (if so, how long)? @ -No Were there social determinants of health that impacted care today? How? (Homelessness, low income, unemployed, alcoholism, drug addiction, transportation, low edu. Level, literacy, decrease access to med. care, residential, rehab)? @ -No Was there de-escalation of care discussed even if they declined (Discuss DNR or withdrawal of care, Hospice)? DNR status @ -No What co-morbidities impacted this encounter? (DM, HTN, Smoking, COPD, CAD, Cancer, CVA, ARF, Chemo, Hep., AIDS, mental health diagnosis, sleep apnea, morbid obesity)? @ -None Was patient admitted / discharged? Hospital course, mention meds given and route, prescriptions, significant lab abnormalities, going to OR and other pertinent info. @ -62-year-old male presenting to the emergency room via EMS with concerns of altered mental status. According to EMS patient has a history of elevated ammonia levels due to alcoholic cirrhosis along with bacteremia, sepsis that has caused altered mental status in the past. Will start workup for altered mental status with chest x-ray, EKG, CBC, CMP, drug screen, coags, urinalysis, troponin and ammonia level. Will will give 1 L IV fluid bolus as well. Laboratory studies reveal elevated ammonia level of 237 will start on lactulose 30 g. Electrolytes are also abnormal with potassium 5.6 which is slightly hemolyzed, chloride of 113, the next day to 17 T1 and creatinine are normal. Glucose elevated at 112. Bilirubin elevated at 2.5 AST elevated at 85 with normal early a LT normal alkaline phosphate. Coags show hypercoagulability with a PT of 12.9 and an INR of 1.3 along with thrombocytopenia with a platelet count of 78 hemoglobin low at 12.3. Urinalysis is negative. Urine drug screen was positive for marijuana. EKG shows sinus rhythm. Chest x-ray shows bibasilar atelectasis no pleural effusion or focal consolidation. CT of the brain ordered and images completed without any evidence of intracranial hemorrhage of facial report pending. Spoke with Dr. ledezma on [facility] regarding patient presentation recommendation of admission for hepatic encephalopathy. 30 g of lactulose orally ordered. Dr. Hendrix is accepting of admission and requesting GI to be consultation. Will continue IV hydration and defer further electrolyte correction and further lactulose orders to admitting team. Will admit patient in stable condition to medical surgical unit under [facility] for further evaluation and treatment of hepatic encephalopathy. Undiagnosed new problem with uncertain prognosis? @ -No Drug Therapy requiring intensive monitoring for toxicity (Heparin, Nitro, Insulin, Cardizem)? @ -No Were any procedures done? @ -No Diagnosis/symptom? @ -Hepatic encephalopathy Acute, or Chronic, or Acute on Chronic? @ -Acute on chronic Uncomplicated (without systemic symptoms) or Complicated (systemic symptoms)? @ -Complicated Side effects of treatment? @ -No Exacerbation, Progression, or Severe Exacerbation? @ -No Poses a threat to life or bodily function? How? (Chest pain, USA, CO, pneumonia, PE, COPD, DKA, ARF, appy, cholecystitis, CVA, Diverticulitis, Homicidal, Suicidal, threat to staff... and all critical care pts) @ -Yes, at risk for worsening hepatic encephalopathy and electrolyte derangement. Case discussed with Dr. Shannon - Lab Data Result diagrams: 07/11/23 19:01 07/11/23 19:01 Lab Results 07/11/23 07/11/23 07/11/23 Range/Units 19:01 19:01 19:01 WBC 4.4 (3.8-10.6) k/uL RBC 3.69 L (4.30-5.90) m/uL Hgb 12.3 L (13.0-17.5) gm/dL Hct 35.7 L (39.0-53.0) % MCV 96.9 (80.0-100.0) fL MCH 33.4 (25.0-35.0) pg MCHC 34.5 (31.0-37.0) g/dL RDW 15.0 (11.5-15.5) % Plt Count 78 L (150-450) k/uL MPV 9.1 Neutrophils % 77 % Lymphocytes % 13 % Monocytes % 6 % Eosinophils % 1 % Basophils % 0 % Neutrophils # 3.4 (1.3-7.7) k/uL Lymphocytes # 0.6 L (1.0-4.8) k/uL Monocytes # 0.3 (0-1.0) k/uL Eosinophils # 0.1 (0-0.7) k/uL Basophils # 0.0 (0-0.2) k/uL PT 12.9 H (9.0-12.0) sec INR 1.3 H (<1.2) APTT 25.7 (22.0-30.0) sec Sodium 138 (137-145) mmol/L Potassium 5.6 H (3.5-5.1) mmol/L Chloride 113 H (98-107) mmol/L Carbon Dioxide 17 L (22-30) mmol/L Anion Gap 8 mmol/L BUN 20 (9-20) mg/dL Creatinine 1.11 (0.66-1.25) mg/dL Est GFR (CKD-EPI)AfAm 81 (>60 ml/min/1.73 sqM) Est GFR (CKD-EPI)NonAf 70 (>60 ml/min/1.73 sqM) Glucose 112 H (74-99) mg/dL POC Glucose (mg/dL) (70-110) mg/dL POC Glu Vaccine Key Customer Leader ID Calcium 9.1 (8.4-10.2) mg/dL Total Bilirubin 2.5 H (0.2-1.3) mg/dL AST 85 H (17-59) U/L ALT 37 (4-49) U/L Alkaline Phosphatase 113 (38-126) U/L Ammonia (<30) umol/L Troponin I (0.000-0.034) ng/mL Total Protein 7.6 (6.3-8.2) g/dL Albumin 3.4 L (3.5-5.0) g/dL Urine Color Urine Appearance (Clear) Urine pH (5.0-8.0) Ur Specific [place] (1.001-1.035) Urine Protein (Negative) Urine Glucose (UA) (Negative) Urine Ketones (Negative) Urine Blood (Negative) Urine Nitrite (Negative) Urine Bilirubin (Negative) Urine Urobilinogen (<2.0) mg/dL Ur Leukocyte Esterase (Negative) Urine Opiates Screen (NotDetected) Ur Oxycodone Screen (NotDetected) Urine Methadone Screen (NotDetected) Ur Propoxyphene Screen (NotDetected) Ur Barbiturates Screen (NotDetected) U Tricyclic Antidepress (NotDetected) Ur Phencyclidine Scrn (NotDetected) Ur Amphetamines Screen (NotDetected) U Methamphetamines Scrn (NotDetected) U Benzodiazepines Scrn (NotDetected) Urine Cocaine Screen (NotDetected) U Marijuana (THC) Screen (NotDetected) 07/11/23 07/11/23 07/11/23 Range/Units 19:01 19:01 19:10 WBC (3.8-10.6) k/uL RBC (4.30-5.90) m/uL Hgb (13.0-17.5) gm/dL Hct (39.0-53.0) % MCV (80.0-100.0) fL MCH (25.0-35.0) pg MCHC (31.0-37.0) g/dL RDW (11.5-15.5) % Plt Count (150-450) k/uL MPV Neutrophils % % Lymphocytes % % Monocytes % % Eosinophils % % Basophils % % Neutrophils # (1.3-7.7) k/uL Lymphocytes # (1.0-4.8) k/uL Monocytes # (0-1.0) k/uL Eosinophils # (0-0.7) k/uL Basophils # (0-0.2) k/uL PT (9.0-12.0) sec INR (<1.2) APTT (22.0-30.0) sec Sodium (137-145) mmol/L Potassium (3.5-5.1) mmol/L Chloride (98-107) mmol/L Carbon Dioxide (22-30) mmol/L Anion Gap mmol/L BUN (9-20) mg/dL Creatinine (0.66-1.25) mg/dL Est GFR (CKD-EPI)AfAm (>60 ml/min/1.73 sqM) Est GFR (CKD-EPI)NonAf (>60 ml/min/1.73 sqM) Glucose (74-99) mg/dL POC Glucose (mg/dL) 121 H (70-110) mg/dL POC Glu Vaccine Key Customer Leader ID Rajinder, Sheryl Calcium (8.4-10.2) mg/dL Total Bilirubin (0.2-1.3) mg/dL AST (17-59) U/L ALT (4-49) U/L Alkaline Phosphatase (38-126) U/L Ammonia 237 H (<30) umol/L Troponin I 0.018 (0.000-0.034) ng/mL Total Protein (6.3-8.2) g/dL Albumin (3.5-5.0) g/dL Urine Color Urine Appearance (Clear) Urine pH (5.0-8.0) Ur Specific [place] (1.001-1.035) Urine Protein (Negative) Urine Glucose (UA) (Negative) Urine Ketones (Negative) Urine Blood (Negative) Urine Nitrite (Negative) Urine Bilirubin (Negative) Urine Urobilinogen (<2.0) mg/dL Ur Leukocyte Esterase (Negative) Urine Opiates Screen (NotDetected) Ur Oxycodone Screen (NotDetected) Urine Methadone Screen (NotDetected) Ur Propoxyphene Screen (NotDetected) Ur Barbiturates Screen (NotDetected) U Tricyclic Antidepress (NotDetected) Ur Phencyclidine Scrn (NotDetected) Ur Amphetamines Screen (NotDetected) U Methamphetamines Scrn (NotDetected) U Benzodiazepines Scrn (NotDetected) Urine Cocaine Screen (NotDetected) U Marijuana (THC) Screen (NotDetected) 07/11/23 Range/Units 22:00 WBC (3.8-10.6) k/uL RBC (4.30-5.90) m/uL Hgb (13.0-17.5) gm/dL Hct (39.0-53.0) % MCV (80.0-100.0) fL MCH (25.0-35.0) pg MCHC (31.0-37.0) g/dL RDW (11.5-15.5) % Plt Count (150-450) k/uL MPV Neutrophils % % Lymphocytes % % Monocytes % % Eosinophils % % Basophils % % Neutrophils # (1.3-7.7) k/uL Lymphocytes # (1.0-4.8) k/uL Monocytes # (0-1.0) k/uL Eosinophils # (0-0.7) k/uL Basophils # (0-0.2) k/uL PT (9.0-12.0) sec INR (<1.2) APTT (22.0-30.0) sec Sodium (137-145) mmol/L Potassium (3.5-5.1) mmol/L Chloride (98-107) mmol/L Carbon Dioxide (22-30) mmol/L Anion Gap mmol/L BUN (9-20) mg/dL Creatinine (0.66-1.25) mg/dL Est GFR (CKD-EPI)AfAm (>60 ml/min/1.73 sqM) Est GFR (CKD-EPI)NonAf (>60 ml/min/1.73 sqM) Glucose (74-99) mg/dL POC Glucose (mg/dL) (70-110) mg/dL POC Glu Vaccine Key Customer Leader ID Calcium (8.4-10.2) mg/dL Total Bilirubin (0.2-1.3) mg/dL AST (17-59) U/L ALT (4-49) U/L Alkaline Phosphatase (38-126) U/L Ammonia (<30) umol/L Troponin I (0.000-0.034) ng/mL Total Protein (6.3-8.2) g/dL Albumin (3.5-5.0) g/dL Urine Color Yellow Urine Appearance Clear (Clear) Urine pH 6.0 (5.0-8.0) Ur Specific [place] 1.018 (1.001-1.035) Urine Protein Negative (Negative) Urine Glucose (UA) Negative (Negative) Urine Ketones Negative (Negative) Urine Blood Negative (Negative) Urine Nitrite Negative (Negative) Urine Bilirubin Negative (Negative) Urine Urobilinogen <2.0 (<2.0) mg/dL Ur Leukocyte Esterase Negative (Negative) Urine Opiates Screen Not Detected (NotDetected) Ur Oxycodone Screen Not Detected (NotDetected) Urine Methadone Screen Not Detected (NotDetected) Ur Propoxyphene Screen Not Detected (NotDetected) Ur Barbiturates Screen Not Detected (NotDetected) U Tricyclic Antidepress Not Detected (NotDetected) Ur Phencyclidine Scrn Not Detected (NotDetected) Ur Amphetamines Screen Not Detected (NotDetected) U Methamphetamines Scrn Not Detected (NotDetected) U Benzodiazepines Scrn Not Detected (NotDetected) Urine Cocaine Screen Not Detected (NotDetected) U Marijuana (THC) Screen Detected H (NotDetected) - Radiology Data Radiology results: report reviewed, image reviewed Disposition Clinical Impression: Hepatic encephalopathy Disposition: ADMITTED IP TO THIS [facility] Condition: Stable Time of Disposition: 22:38
[2023-07-11 19:12] LABS: Glucose,Whole Blood 121 mg/dL (70-110)
[2023-07-11 19:45] LABS: Basophils % (A) 0 %; Eosinophils # (A) 0.1 k/uL (0-0.7); Eosinophils % (A) 1 %; HCT 35.7 % (39.0-53.0); HGB 12.3 gm/dL (13.0-17.5); Lymphocytes # (A) 0.6 k/uL (1.0-4.8); Lymphocytes % (A) 13 %; MCH 33.4 pg (25.0-35.0); MCHC 34.5 g/dL (31.0-37.0); MCV 96.9 fL (80.0-100.0); Mean Platelet Volume 9.1; Monocytes # (A) 0.3 k/uL (0-1.0); Monocytes % (A) 6 %; Neutrophils # (A) 3.4 k/uL (1.3-7.7); Neutrophils % (A) 77 %; Platelet Count 78 k/uL (150-450); RBC 3.69 m/uL (4.30-5.90); WBC 4.4 k/uL (3.8-10.6)
[2023-07-11 19:58] LABS: ALT 37 U/L (4-49); AST 85 U/L (17-59); African American GFR (CKD) 81 (>60 ml/min/1.73 sqM); Albumin 3.4 g/dL (3.5-5.0); Alkaline Phosphatase 113 U/L (38-126); Anion Gap 8 mmol/L; Blood Urea Nitrogen 20 mg/dL (9-20); Calcium 9.1 mg/dL (8.4-10.2); Carbon Dioxide 17 mmol/L (22-30); Chloride 113 mmol/L (98-107); Glucose 112 mg/dL (74-99); Non-African American GFR(CKD) 70 (>60 ml/min/1.73 sqM); Sodium 138 mmol/L (137-145); Total Bilirubin 2.5 mg/dL (0.2-1.3); Total Protein 7.6 g/dL (6.3-8.2)
[2023-07-11 20:02] LABS: INR 1.3 (<1.2); Partial Thromboplastin Time 25.7 sec (22.0-30.0); Prothrombin Time 12.9 sec (9.0-12.0)
--- NOTE | 2023-07-11 20:17 | XR ---
EXAMINATION TYPE: XR chest 1V DATE OF EXAM: 07/11/2023 8:05 PM COMPARISON: Chest radiographs from 12/19/2019 TECHNIQUE: XR chest 1V Frontal view of the chest. CLINICAL INDICATION:Male, 62 years old with history of altered mental status; FINDINGS: Lungs/Pleura: Bibasilar atelectasis. No evidence for pneumothorax, pleural effusion or focal consolid ation. Pulmonary vascularity: Unremarkable. Heart/mediastinum: Cardiomediastinal silhouette is unremarkable. Musculoskeletal: No acute osseous pathology. IMPRESSION: No acute cardiopulmonary disease/process.
[2023-07-11 20:39] LABS: Potassium 5.6 mmol/L (3.5-5.1)
[2023-07-11] MEDS ORDERED: LACTULOSE 20 GM/30 ML CUP PO ONE (21:27)
[2023-07-11] MEDS ORDERED: NALOXONE 0.4 MG/ML 1 ML VIAL IV PRN (22:38)
[2023-07-11 22:41] LABS: Appearance,Urine Clear (Clear); Bilirubin,Urine Negative (Negative); Blood,Urine Negative (Negative); Color,Urine Yellow; Glucose,Urine (UA) Negative (Negative); Ketones,Urine Negative (Negative); Leukocyte Esterase,Urine Negative (Negative); Nitrite,Urine Negative (Negative); Protein,Urine Negative (Negative); Specific Gravity,Urine 1.018 (1.001-1.035); Urobilinogen,Urine <2.0 mg/dL (<2.0)
[2023-07-11 22:51] LABS: Amphetamine Screen,Urine Not Detected (NotDetected); Barbiturate Screen,Urine Not Detected (NotDetected); Benzodiazepines Screen,Urine Not Detected (NotDetected); Cocaine Screen,Urine Not Detected (NotDetected); Methadone Screen, Urine Not Detected (NotDetected); Opiate Screen,Urine Not Detected (NotDetected); Oxycodone Screen, Urine Not Detected (NotDetected); Phencyclidine Screen,Urine Not Detected (NotDetected); Tricyclic Antidepressant,Urine Not Detected (NotDetected); Urn Cannabinoid Scrn Detected (NotDetected)
[2023-07-12] MEDS: SODIUM CHLORIDE 0.9% 1,000 ML IV SCH ×2 (00:07→11:34)
--- NOTE | 2023-07-12 00:25 | CT ---
EXAM: CT Head Without Intravenous Contrast CLINICAL HISTORY: ITS.REASON CT Reason: AMS TECHNIQUE: Axial computed tomography images of the head/brain without intravenous contrast. CTDI is 47.2 mGy and DLP is 1225.4 mGy-cm. This CT exam was performed using one or more of the following dose reduction techniques: automated exposure control, adjustment of the mA and/or kV according to patient size, and/or use of iterative reconstruction technique. COMPARISON: No relevant prior studies available. FINDINGS: No acute intracranial hemorrhage. No midline shift or mass effect. The territorial simental-white matter differentiation is maintained throughout. Age-related cerebral volume loss. Periventricular and subcortical white matter hypoattenuation, consistent with chronic microangiopathy. The visualized orbits appear grossly unremarkable. The calvarium is intact. The visualized paranasal sinuses and mastoid air cells are grossly clear. IMPRESSION: No acute intracranial hemorrhage, midline shift, or mass effect.
[2023-07-12] MEDS ORDERED: IPRATROPIUM-ALBUTEROL 3 ML NEB INHALATION PRN (03:53)
--- NOTE | 2023-07-12 03:54 | P.HPIM ---
History of Present Illness H&P Date: 07/11/23 Patient is a 62-year-old male with a PMH of alcoholic cirrhosis with esophageal varices, COPD, history of CVA, type II DM, and hypertension who presents to the emergency room brought in via EMS for altered mental status. History obtained from the chart and ED provider as the patient was also recommended time of interview and could not provide any meaningful history. The patient is a long-standing history of alcohol abuse with ongoing use with hepatic encephalopathy. The patient was recently admitted on 06/23 for similar complaints of altered mental status, at which time he was noted to have an ammonia 150. Patient had reportedly not been taking his home medications including lactulose. The patient was restarted on his home medications and his mentation improved and he was discharged home on 06/27. The patient was combative in the emergency room and was not answering questions appropriately. CT brain in the emergency room was unremarkable. Chest x-ray was also unremarkable. EKG revealed sinus rhythm at [address]/T-wave changes noted as reviewed by me. Laboratory evaluation revealed an ammonia of 237 with troponin 0.018 and total bilirubin 2.5 and CO2 17. ED documentation reviewed and case discussed with ED provider. Review of systems: Unable to obtain due to mental status Physical examination: Vital signs reviewed General: Chronically ill-appearing male, disheveled, appears older than stated age, normal weight Derm: no unusual rashes/lesions, warm Head: atraumatic, normocephalic, symmetric Eyes: EOMI, no lid lag, mild scleral icterus noted, pupils equal round reactive to light ENT: Nose and ears atraumatic Neck: No cervical lymphadenopathy, trachea midline, supple Mouth: no lip lesion, mucus membranes moist Cardiovascular: S1S2 reg, no murmur, positive dorsalis pedis pulse bilateral, no edema Lungs: CTA bilateral, no rhonchi, no rales, no accessory muscle use Abdominal: soft, nontender to palpation, no guarding Ext: Moving all extremities, no gross muscle atrophy, no contractures Neuro: no gross focal neuro deficits Psych: Oriented only to self, not oriented to person and place, combative Assessment: Altered mental status, suspect hepatic encephalopathy Alcoholic cirrhosis Thrombocytopenia, likely due to alcohol use Chronic conditions: COPD, history of CVA, type II DM, hypertension Imaging: CT brain in the emergency room was unremarkable. Chest x-ray was also unremarkable. EKG revealed sinus rhythm at [address]/T-wave changes noted as reviewed by me. Data Review: Laboratory evaluation revealed an ammonia of 237 with troponin 0.018 and total bilirubin 2.5 and CO2 17. Plan: Continue with lactulose and monitor ammonia levels Continue remaining home medications including Lasix and rifaximin Monitor CBC DVT prophylaxis: IPCDs The patient is admitted with an anticipated greater than 2 midnight stay for evaluation of AMS CODE STATUS: Full Code Anticipated discharge place: Home Past Medical History Past Medical History: COPD, CVA/TIA, Diabetes Mellitus, Hearing Disorder / D eafness, Hyperlipidemia, Hypertension, Liver Disease, Thyroid Disorder Additional Past Medical History / Comment(s): Pt recently admitted to [facility] on 08/05/18 with acute hepatic encephalopathy/increased ammonia levels. Other hx: Alcoholism, alcoholic liver cirrhosis, history of hepatic encephalopathy, portal hypertension and esophageal varices and portal hypertensive gastropathy, significant other states pt has not drank alcohol since March 2018, CVA, kidney stones, hypothyroidism, L ear deafness. Last Myocardial Infarction Date:: unknown History of Any Multi-Drug Resistant Organisms: None Reported Past Surgical History: Joint Replacement Additional Past Surgical History / Comment(s): Right nephrectomy as an for nonfunctioning kidney, bilateral total knee surgery, liver drain or stents done at [facility], EGD Past Anesthesia/Blood Transfusion Reactions: No Reported Reaction Additional Past Anesthesia/Blood Transfusion Reaction / Comment(s): blood trandfusion - no known reaction Past Psychological History: Bipolar, Depression Additional Psychological History / Comment(s): Pt lives with and 1 pet dog in 2 story home wthat has 4 porch steps. Pt has [facility] therapist that comes to home and is to establish with home care nurse-company unknown. Pt and significant other cannot drive, rides are arranged thru [facility]. Pt's significant other manages his medications. Smoking Status: Current every day smoker Past Alcohol Use History: None Reported Additional Past Alcohol Use History / Comment(s): started smoking 1972 (age 14) currently smokes 1 PPD , pt's stated pt is recovering alcohoic- quit march 2018 Past Drug Use History: None Reported - Past Family History Mother Family Medical History: Cancer Additional Family Medical History / Comment(s): skin cancer Father History Unknown: Yes Additional Family Medical History / Comment(s): pt was raised buy his step dad. Medications and Allergies Home Medications Medication Instructions Recorded Confirmed Type Ferrous Sulfate [Iron (65 MG 325 mg PO MOWEFR 08/18/18 07/11/23 History Elemental)] Multivitamins, Thera [Multivitamin 1 tab PO DAILY 09/14/19 07/11/23 History (formulary)] lisinopriL [Zestril] 10 mg PO DAILY 09/14/19 07/11/23 History Albuterol Inhaler [Ventolin Hfa 2 puff INHALATION RT-QID PRN 06/23/23 07/11/23 History Inhaler] Ipratropium-Albuterol Nebulize 3 ml INHALATION RT-Q6H PRN 06/23/23 07/11/23 History [Duoneb 0.5 mg-3 mg/3 ml Soln] Levothyroxine Sodium [Synthroid] 125 mcg PO DAILY 06/23/23 07/11/23 History Thiamine [Vitamin B-1] 100 mg PO DAILY 06/23/23 07/11/23 History Furosemide [Lasix] 40 mg PO DAILY #60 tab 06/27/23 07/11/23 Rx Lactulose [Cephulac] 20 gm PO TID #1000 ml 06/27/23 07/11/23 Rx Rifaximin [Xifaxan] 550 mg PO AC-BID #60 tab 06/27/23 07/11/23 Rx Spironolactone [Aldactone] 100 mg PO DAILY #60 tab 06/27/23 07/11/23 Rx Allergies Allergy/AdvReac Type Severity Reaction Status Date / Time Penicillins Allergy Unknown Verified 07/11/23 18:13 Childhood Physical Exam Vitals: Vital Signs Temp Pulse Resp BP Pulse Ox 07/11/23 21:00 87 16 170/70 100 07/11/23 20:00 86 20 171/66 100 07/11/23 19:06 94 18 112/84 99 07/11/23 17:23 98.8 F 97 18 112/84 100 Intake and Output 07/11/23 07/11/23 07/12/23 14:59 22:59 06:59 Other: Weight 106.594 kg Results CBC & Chem 7: 07/11/23 19:01 07/11/23 19:01 Labs: Abnormal Lab Results - Last 24 Hours (Table) 07/11/23 07/11/23 07/11/23 Range/Units 19:01 19:01 19:01 RBC 3.69 L (4.30-5.90) m/uL Hgb 12.3 L (13.0-17.5) gm/dL Hct 35.7 L (39.0-53.0) % Plt Count 78 L (150-450) k/uL Lymphocytes # 0.6 L (1.0-4.8) k/uL PT 12.9 H (9.0-12.0) sec INR 1.3 H (<1.2) Potassium 5.6 H (3.5-5.1) mmol/L Chloride 113 H (98-107) mmol/L Carbon Dioxide 17 L (22-30) mmol/L Glucose 112 H (74-99) mg/dL POC Glucose (mg/dL) (70-110) mg/dL Total Bilirubin 2.5 H (0.2-1.3) mg/dL AST 85 H (17-59) U/L Ammonia (<30) umol/L Albumin 3.4 L (3.5-5.0) g/dL U Marijuana (THC) Screen (NotDetected) 07/11/23 07/11/23 07/11/23 Range/Units 19: 19:10 22:00 RBC (4.30-5.90) m/uL Hgb (13.0-17.5) gm/dL Hct (39.0-53.0) % Plt Count (150-450) k/uL Lymphocytes # (1.0-4.8) k/uL PT (9.0-12.0) sec INR (<1.2) Potassium (3.5-5.1) mmol/L Chloride (98-107) mmol/L Carbon Dioxide (22-30) mmol/L Glucose (74-99) mg/dL POC Glucose (mg/dL) 121 H (70-110) mg/dL Total Bilirubin (0.2-1.3) mg/dL AST (17-59) U/L Ammonia 237 H (<30) umol/L Albumin (3.5-5.0) g/dL U Marijuana (THC) Screen Detected H (NotDetected)
[2023-07-12 05:22] LABS: Glucose,Whole Blood 98 mg/dL (70-110)
[2023-07-12 05:22] LABS: Glucose,Whole Blood 95 mg/dL (70-110)
[2023-07-12] MEDS ORDERED: THIAMINE 100 MG/ML 2 ML VIAL IM STA (05:29)
[2023-07-12] MEDS ORDERED: LORazepam 2 MG/ML INJ IV PRN ×3 (05:29)
[2023-07-12] MEDS: LACTULOSE 20 GM/30 ML CUP PO SCH ×5 (05:30→22:14)
[2023-07-12] MEDS: LEVOTHYROXINE 125 MCG TAB PO SCH (06:43)
[2023-07-12 07:22] LABS: Glucose,Whole Blood 109 mg/dL (70-110)
[2023-07-12] MEDS: MULTIVITAMINS, THERA 1 EACH TAB PO SCH ×2 (08:09→11:39)
[2023-07-12] MEDS: lisinopriL 10 MG TAB PO SCH ×2 (08:09→11:37)
[2023-07-12] MEDS: FERROUS SULFATE 325 MG TAB PO SCH ×2 (08:09→11:39)
[2023-07-12] MEDS: FUROSEMIDE 40 MG TAB PO SCH ×2 (08:09→11:37)
[2023-07-12] MEDS: RIFAXIMIN 550 MG TABLET PO SCH ×2 (08:09→18:02)
[2023-07-12] MEDS: THIAMINE 100 MG TAB PO SCH ×2 (08:09→11:39)
[2023-07-12] MEDS: SPIRONOLACTONE 25 MG TAB PO SCH ×2 (08:09→11:38)
[2023-07-12 08:53] LABS: HCT 31.5 % (39.0-53.0); HGB 10.7 gm/dL (13.0-17.5); MCH 33.5 pg (25.0-35.0); MCHC 33.9 g/dL (31.0-37.0); MCV 98.9 fL (80.0-100.0); Macrocytosis Slight; Mean Platelet Volume 9.5; RBC 3.18 m/uL (4.30-5.90); RDW 14.9 % (11.5-15.5); WBC 4.6 k/uL (3.8-10.6)
[2023-07-12 09:05] LABS: ALT 31 U/L (4-49); AST 52 U/L (17-59); African American GFR (CKD) >90 (>60 ml/min/1.73 sqM); Albumin 2.6 g/dL (3.5-5.0); Albumin/Globulin Ratio 0.8; Alkaline Phosphatase 89 U/L (38-126); Anion Gap 5 mmol/L; Blood Urea Nitrogen 19 mg/dL (9-20); Calcium 8.8 mg/dL (8.4-10.2); Carbon Dioxide 17 mmol/L (22-30); Chloride 119 mmol/L (98-107); Globulin 3.4 g/dL; Glucose 100 mg/dL (74-99); Non-African American GFR(CKD) 86 (>60 ml/min/1.73 sqM); Potassium 4.5 mmol/L (3.5-5.1); Sodium 141 mmol/L (137-145)
[2023-07-12 09:09] LABS: Platelet Count 65 k/uL (150-450)
[2023-07-12] MEDS: LACTULOSE 200 GM/300 ML (FROM 1/2 GAL JUG) RECTAL SCH ×3 (11:33→23:21)
[2023-07-12 11:52] LABS: Glucose,Whole Blood 115 mg/dL (70-110)
[2023-07-12 17:05] LABS: Glucose,Whole Blood 112 mg/dL (70-110)
--- NOTE | 2023-07-12 19:27 | P.PN ---
Subjective Progress Note Date: 07/12/23 Hospital course: Patient is a pleasant 62-year-old male with a past medical history of alcoholic cirrhosis with esophageal varices, COPD, history of CVA, right nephrectomy, hypertension, hyperlipidemia, and hypothyroidism. He presented to the emergency department via EMS with concerns of altered mental status with history of recurrent episodes of elevated ammonia levels resulting in hepatic encephalopathy. He underwent full evaluation in the emergency department. Vital signs upon arrival showing blood pressure 112/84, heart rate 97, respiratory rate 18, temp 98.8F, SpO2 of 100% on room air. EKG was completed showing normal sinus rhythm at 80 bpm with no significant T-wave or ST abnormalities upon personal review and interpretation. Chest x-ray completed negative for acute cardiopulmonary process. CT head negative for acute intercranial process. Labs completed and reviewed. CBC showing bicytopenia with hemoglobin of 12.3 and platelet count of 78. Coreg elation profile revealing elevated PT of 12.9 and INR of 1.3. BMP revealing hyperkalemia with potassium of 5.6 and metabolic acidosis with chloride of 113, bicarb 17, anion gap of 8. Glucose was 112. Liver profile revealing Bilirubin elevated at 2.5 and AST 85. Ammonia levels significantly elevated at 237. Troponin was 0.018. Urinalysis negative for infection and urine drug screen positive for marijuana. Patient was admitted under our services with consultation to director of tax services. Combined MELD score 14 point showing a 6% estimated at 3 month mortality Physical exam: Vital signs reviewed and stable. General: Nontoxic, no distress and appears stated age. Derm: Skin warm and dry, normal coloration for ethnicity. Head: Atraumatic, normocephalic and symmetric. Eyes: EOMs intact, no lid lag, and anicteric sclera Mouth: no lip lesions, mucus membranes moist Cardiovascular: regular rate and rhythm with normal S1S2, no murmur, positive posterior tibial pulses bilaterally, and cap refill < 2 seconds. Lungs: Respirations even, regular, and unlabored on room air. Lungs CTA bilaterally, no rhonchi, no rales, no wheezing, and no accessory muscle usage. Abdominal: soft, nontender to palpation, no guarding, no appreciable organomegaly Ext: ROM intact. No gross muscle atrophy, no edema, no contractures Neuro: Speech clear, face symmetrical and CN II-XII grossly intact with no noted focal neuro deficits Psych: Alert and oriented to person, place, time, and situation. Appropriate and pleasant affect. Assessment and Plan of Care: Hepatic encephalopathy secondary to hyperammonia Alcoholic liver cirrhosis with previous known esophageal varices Bicytopenia secondary to chronic alcohol abuse Hyperbilirubinemia Elevated liver enzymes Hypertension Gastroenterology following, discussed plan of care with gastroenterology VAULT KEEPER. Telemetry monitoring Increase lactulose to 30 g 3 times daily Continue rifaximin 550 mg twice daily Neuro checks every 4 hours Fall precautions placed Order placed for sitter at bedside to maintain patient's safety Continue close monitoring with repeat labs to monitor for improvement in ammonia levels. -Continue monitoring of CIWA scores and patient to be medicated with Ativan 0.5 mg every 4 hours as needed for CIWA score of 4-5, Ativan 1 mg every 4 hours for CIWA score of 6-7, Ativan 2 mg every 3 hours CIWA score of 8-9, and Ativan 2 mg every 2 hours forr CIWA score of 10 or greater. -Thiamine 100 mg twice a day -Multivitamin daily -Folate 1 mg daily Data review: Morning labs reviewed. CBC showing bicytopenia with hemoglobin of 10.7 and platelet count of 65. BMP revealing non-anion gap metabolic acidosis with hyperchloremia with chloride of 119 bicarb is 17, and anion gap of 5. Glucose stable at 100. Liver profile showing elevated total bili of 2.0. Ammonia level is improving from previous 237 down to 100. Vital signs reviewed. Blood pressure 154/63, heart rate 99, respiratory rate 24, temp 98.5F, SpO2 of 96% on room air. CODE STATUS: Full code DVT prophylaxis: SCDs Discussed with: Pt, gastroenterology VAULT KEEPER and RN Anticipated discharge date: clinical course to determine Anticipated discharge place: home Patient was seen independently by Nurse Pracitioner. This document was prepared using [employer] dictation software. Please allow for errors in machining supervisor, while rare they do occur. I reviewed the documentation as provided by the VIRGEN above, who is the original author of this note. I agree with the documented assessment and plan, with the following changes: none Objective - Vital Signs Vital signs: Vital Signs Temp 98.5 F 07/12/23 07:02 Pulse 99 07/12/23 07:02 Resp 24 07/12/23 07:02 BP 154/63 07/12/23 07:02 Pulse Ox 96 07/12/23 07:02 FiO2 Intake & Output 07/11/23 07/12/23 07/12/23 18:59 06:59 18:59 Intake Total 600 Output Total 1000 Balance 600 -1000 Weight 106.594 kg Intake: IV 600 Sodium Chloride 0.9% 1, 600 000 ml @ 75 mls/hr IV . [id number] [facility] Rx#:[id number] Output: Urine 1000 Other: Voiding Method Diaper - Labs CBC & Chem 7: 07/13/23 07:56 07/13/23 07:56 Labs: Abnormal Lab Results - Last 24 Hours (Table) 07/11/23 07/11/23 07/11/23 Range/Units 19:01 19:01 19:01 RBC 3.69 L (4.30-5.90) m/uL Hgb 12.3 L (13.0-17.5) gm/dL Hct 35.7 L (39.0-53.0) % Plt Count 78 L (150-450) k/uL Lymphocytes # 0.6 L (1.0-4.8) k/uL PT 12.9 H (9.0-12.0) sec INR 1.3 H (<1.2) Potassium 5.6 H (3.5-5.1) mmol/L Chloride 113 H (98-107) mmol/L Carbon Dioxide 17 L (22-30) mmol/L Glucose 112 H (74-99) mg/dL POC Glucose (mg/dL) (70-110) mg/dL Total Bilirubin 2.5 H (0.2-1.3) mg/dL AST 85 H (17-59) U/L Ammonia (<30) umol/L Total Protein (6.3-8.2) g/dL Albumin 3.4 L (3.5-5.0) g/dL U Marijuana (THC) Screen (NotDetected) 07/11/23 07/11/23 07/11/23 Range/Units 19:01 19:10 22:00 RBC (4.30-5.90) m/uL Hgb (13.0-17.5) gm/dL Hct (39.0-53.0) % Plt Count (150-450) k/uL Lymphocytes # (1.0-4.8) k/uL PT (9.0-12.0) sec INR (<1.2) Potassium (3.5-5.1) mmol/L Chloride (98-107) mmol/L Carbon Dioxide (22-30) mmol/L Glucose (74-99) mg/dL POC Glucose (mg/dL) 121 H (70-110) mg/dL Total Bilirubin (0.2-1.3) mg/dL AST (17-59) U/L Ammonia 237 H (<30) umol/L Total Protein (6.3-8.2) g/dL Albumin (3.5-5.0) g/dL U Marijuana (THC) Screen Detected H (NotDetected) 07/12/23 07/12/23 Range/Units 08:29 08:29 RBC (4.30-5.90) m/uL Hgb (13.0-17.5) gm/dL Hct (39.0-53.0) % Plt Count (150-450) k/uL Lymphocytes # (1.0-4.8) k/uL PT (9.0-12.0) sec INR (<1.2) Potassium (3.5-5.1) mmol/L Chloride 119 H (98-107) mmol/L Carbon Dioxide 17 L (22-30) mmol/L Glucose 100 H (74-99) mg/dL POC Glucose (mg/dL) (70-110) mg/dL Total Bilirubin 2.0 H (0.2-1.3) mg/dL AST (17-59) U/L Ammonia 100 H (<30) umol/L Total Protein 6.0 L (6.3-8.2) g/dL Albumin 2.6 L (3.5-5.0) g/dL U Marijuana (THC) Screen (NotDetected)
[2023-07-12 20:34] LABS: Glucose,Whole Blood 103 mg/dL (70-110)
[2023-07-13] MEDS: SODIUM CHLORIDE 0.9% 1,000 ML IV SCH ×2 (05:03→17:11)
[2023-07-13] MEDS: LACTULOSE 200 GM/300 ML (FROM 1/2 GAL JUG) RECTAL SCH (06:15)
[2023-07-13] MEDS: LEVOTHYROXINE 125 MCG TAB PO SCH (06:16)
[2023-07-13 07:01] LABS: Glucose,Whole Blood 105 mg/dL (70-110)
[2023-07-13 08:25] LABS: African American GFR (CKD) >90 (>60 ml/min/1.73 sqM); Anion Gap 2 mmol/L; Blood Urea Nitrogen 16 mg/dL (9-20); Calcium 7.9 mg/dL (8.4-10.2); Carbon Dioxide 20 mmol/L (22-30); Chloride 118 mmol/L (98-107); Glucose 85 mg/dL (74-99); HCT 29.1 % (39.0-53.0); HGB 10.1 gm/dL (13.0-17.5); MCH 34.2 pg (25.0-35.0); MCHC 34.8 g/dL (31.0-37.0); MCV 98.4 fL (80.0-100.0); Mean Platelet Volume 9.7; Non-African American GFR(CKD) >90 (>60 ml/min/1.73 sqM); Potassium 3.6 mmol/L (3.5-5.1); RBC 2.96 m/uL (4.30-5.90); RDW 15.2 % (11.5-15.5); Sodium 140 mmol/L (137-145); WBC 3.6 k/uL (3.8-10.6)
[2023-07-13 08:33] LABS: Platelet Count 64 k/uL (150-450)
[2023-07-13] MEDS: THIAMINE 100 MG TAB PO SCH (08:40)
[2023-07-13] MEDS: SPIRONOLACTONE 25 MG TAB PO SCH (08:40)
[2023-07-13] MEDS: LACTULOSE 20 GM/30 ML CUP PO SCH ×3 (08:40→21:13)
[2023-07-13] MEDS: RIFAXIMIN 550 MG TABLET PO SCH ×2 (08:41→17:28)
[2023-07-13] MEDS: MULTIVITAMINS, THERA 1 EACH TAB PO SCH (08:41)
[2023-07-13] MEDS: FUROSEMIDE 40 MG TAB PO SCH (08:41)
[2023-07-13] MEDS: lisinopriL 10 MG TAB PO SCH (08:41)
[2023-07-13 12:31] LABS: Glucose,Whole Blood 114 mg/dL (70-110)
--- NOTE | 2023-07-13 15:34 | P.CONS ---
History of Present Illness - Reason for Consult Consult date: 07/12/23 Hepatic encephalopathy, alcohol cirrhosis Requesting physician: Margarita Mccray - Chief Complaint Confusion, altered mental status changes - History of Present Illness This is 62-year-old male with a history of alcoholic cirrhosis of the liver, CVA, hypothyroidism, hypertension, hyperlipidemia, COPD and diabetes. HPI is obtained from patient's chart as patient remains with altered mental status changes and is very lethargic. After reviewing chart looks like patient has a history of alcoholic liver cirrhosis and history of hepatic encephalopathy with portal hypertension and esophageal varices possibly diagnosed back in 2018. Patient was brought in by EMS for altered mental status changes. He currently has soft wrist restraints in place with a sitter at the bedside. He is resting with his eyes closed but arousable with stimulation. He has not answering que stions appropriately. Review of Systems ROS unobtainable: due to mental status Past Medical History Past Medical History: COPD, CVA/TIA, Diabetes Mellitus, Hearing Disorder / Deafness, Hyperlipidemia, Hypertension, Liver Disease, Thyroid Disorder Additional Past Medical History / Comment(s): Pt recently admitted to [facility] on 08/05/18 with acute hepatic encephalopathy/increased ammonia levels. Other hx: Alcoholism, alcoholic liver cirrhosis, history of hepatic encephalopathy, portal hypertension and esophageal varices and portal hypertensive gastropathy, significant other states pt has not drank alcohol since March 2018, CVA, kidney stones, hypothyroidism, L ear deafness. 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 Pt has [facility] therapist that comes to home and is to establish with home care nurse-company unknown. Pt and significant other cannot drive, rides are arranged thru [facility]. Pt's significant other manages his medications. Smoking Status: Current every day smoker Past Alcohol Use History: Abuse Additional Past Alcohol Use History / Comment(s): started smoking 1972 (age 14) currently smokes 1 PPD , pt's stated pt is recovering alcohoic- quit march 2018 Past Drug Use History: None Reported - Past Family History Mother Family Medical History: Cancer Additional Family Medical History / Comment(s): skin cancer Father History Unknown: Yes Additional Family Medical History / Comment(s): pt was raised buy his step dad. Medications and Allergies Home Medications Medication Instructions Recorded Confirmed Type Ferrous Sulfate [Iron (65 MG 325 mg PO MOWEFR 08/18/18 07/11/23 History Elemental)] Multivitamins, Thera [Multivitamin 1 tab PO DAILY 09/14/19 07/11/23 History (formulary)] lisinopriL [Zestril] 10 mg PO DAILY 09/14/19 07/11/23 History Albuterol Inhaler [Ventolin Hfa 2 puff INHALATION RT-QID PRN 06/23/23 07/11/23 History Inhaler] Ipratropium-Albuterol Nebulize 3 ml INHALATION RT-Q6H PRN 06/23/23 07/11/23 History [Duoneb 0.5 mg-3 mg/3 ml Soln] Levothyroxine Sodium [Synthroid] 125 mcg PO DAILY 06/23/23 07/11/23 History Thiamine [Vitamin B-1] 100 mg PO DAILY 06/23/23 07/11/23 History Furosemide [Lasix] 40 mg PO DAILY #60 tab 06/27/23 07/11/23 Rx Lactulose [Cephulac] 20 gm PO TID #1000 ml 06/27/23 07/11/23 Rx Rifaximin [Xifaxan] 550 mg PO AC-BID #60 tab 06/27/23 07/11/23 Rx Spironolactone [Aldactone] 100 mg PO DAILY #60 tab 06/27/23 07/11/23 Rx Allergies Allergy/AdvReac Type Severity Reaction Status Date / Time Penicillins Allergy Unknown Verified 07/11/23 18:13 Childhood Physical Exam Vitals: Vital Signs Temp Pulse Pulse Pulse Resp BP BP 07/12/23 11:05 98.9 F 83 22 171/68 07/12/23 07:02 98.5 F 99 24 154/63 07/12/23 01:56 86 18 07/12/23 00:44 97.3 F L 95 22 158/67 07/11/23 23:26 94 181/81 07/11/23 21:00 87 16 170/70 07/11/23 20:00 86 20 171/66 07/11/23 19:06 94 18 112/84 07/11/23 17:23 98.8 F 97 18 112/84 Pulse Ox 07/12/23 11:05 99 07/12/23 07:02 96 07/12/23 01:56 07/12/23 00:44 98 07/11/23 23:26 100 07/11/23 21:00 100 07/11/23 20:00 100 07/11/23 19:06 99 07/11/23 17:23 100 Intake and Output 07/11/23 07/12/23 07/12/23 22:59 06:59 14:59 Intake Total 600 Output Total 1000 Balance 600 -1000 Intake: IV 600 Sodium Chloride 0.9% 1, 600 000 ml @ 75 mls/hr IV . [id number] [facility] Rx#:[id number] Output: Urine 1000 Other: Voiding Method Diaper Diaper Weight 106.594 kg 106.594 kg General appearance: The patient is lethargic, confused. HET: Head is normocephalic and atraumatic. Conjunctiva pink. Sclera anicteric. Neck: Supple without lymphadenopathy. Trachea midline. Heart: S1 S2. Regular rate and rhythm. Lungs: Clear to auscultation. Abdomen: Soft, nontender, nondistended with bowel sounds. No guarding or rigidity. Skin: No rashes. No jaundice. Extremities: Normal skin color and turgor. No pedal edema. Neurological: Patient is sleeping, lethargic, easily arousable but confused. Results CBC & Chem 7: 07/13/23 07:56 07/13/23 07:56 Labs: Abnormal Lab Results - Last 24 Hours (Table) 07/11/23 07/11/23 07/11/23 Range/Units 19:01 19:01 19:01 RBC 3.69 L (4.30-5.90) m/uL Hgb 12.3 L (13.0-17.5) gm/dL Hct 35.7 L (39.0-53.0) % Plt Count 78 L (150-450) k/uL Lymphocytes # 0.6 L (1.0-4.8) k/uL PT 12.9 H (9.0-12.0) sec INR 1.3 H (<1.2) Potassium 5.6 H (3.5-5.1) mmol/L Chloride 113 H (98-107) mmol/L Carbon Dioxide 17 L (22-30) mmol/L Glucose 112 H (74-99) mg/dL POC Glucose (mg/dL) (70-110) mg/dL Total Bilirubin 2.5 H (0.2-1.3) mg/dL AST 85 H (17-59) U/L Ammonia (<30) umol/L Total Protein (6.3-8.2) g/dL Albumin 3.4 L (3.5-5.0) g/dL U Marijuana (THC) Screen (NotDetected) 07/11/23 07/11/23 07/11/23 Range/Units 19:01 19:10 22:00 RBC (4.30-5.90) m/uL Hgb (13.0-17.5) gm/dL Hct (39.0-53.0) % Plt Count (150-450) k/uL Lymphocytes # (1.0-4.8) k/uL PT (9.0-12.0) sec INR (<1.2) Potassium (3.5-5.1) mmol/L Chloride (98-107) mmol/L Carbon Dioxide (22-30) mmol/L Glucose (74-99) mg/dL POC Glucose (mg/dL) 121 H (70-110) mg/dL Total Bilirubin (0.2-1.3) mg/dL AST (17-59) U/L Ammonia 237 H (<30) umol/L Total Protein (6.3-8.2) g/dL Albumin (3.5-5.0) g/dL U Marijuana (THC) Screen Detected H (NotDetected) 07/12/23 07/12/23 07/12/23 Range/Units 08:29 08:29 08:29 RBC 3.18 L (4.30-5.90) m/uL Hgb 10.7 L (13.0-17.5) gm/dL Hct 31.5 L (39.0-53.0) % Plt Count 65 L (150-450) k/uL Lymphocytes # (1.0-4.8) k/uL PT (9.0-12.0) sec INR (<1.2) Potassium (3.5-5.1) mmol/L Chloride 119 H (98-107) mmol/L Carbon Dioxide 17 L (22-30) mmol/L Glucose 100 H (74-99) mg/dL POC Glucose (mg/dL) (70-110) mg/dL Total Bilirubin 2.0 H (0.2-1.3) mg/dL AST (17-59) U/L Ammonia 100 H (<30) umol/L Total Protein 6.0 L (6.3-8.2) g/dL Albumin 2.6 L (3.5-5.0) g/dL U Marijuana (THC) Screen (NotDetected) 07/12/23 Range/Units 11:46 RBC (4.30-5.90) m/uL Hgb (13.0-17.5) gm/dL Hct (39.0-53.0) % Plt Count (150-450) k/uL Lymphocytes # (1.0-4.8) k/uL PT (9.0-12.0) sec INR (<1.2) Potassium (3.5-5.1) mmol/L Chloride (98-107) mmol/L Carbon Dioxide (22-30) mmol/L Glucose (74-99) mg/dL POC Glucose (mg/dL) 115 H (70-110) mg/dL Total Bilirubin (0.2-1.3) mg/dL AST (17-59) U/L Ammonia (<30) umol/L Total Protein (6.3-8.2) g/dL Albumin (3.5-5.0) g/dL U Marijuana (THC) Screen (NotDetected) Assessment and Plan (1) Hepatic encephalopathy Narrative/Plan: 62-year-old male with known history of alcoholic liver cirrhosis with many years of alcohol abuse presented to the emergency department with confusion. Chart reviewed as patient is confused and lethargic. He has a history of alcoholic cirrhosis looks as though diagnosed approximately in 2018 with history of hepatic encephalopathy, portal hypertension and esophageal varices. Patient with noted elevated ammonia at 228 on admission. Likely dealing with decompensated cirrhosis of the liver due to alcohol abuse. Continue lactulose, give rectally if needed. Current Visit: Yes Status: Acute Code(s): K72.90 - HEPATIC FAILURE, UNSPECIFIED WITHOUT COMA SNOMED Code(s): 17936742 (2) Alcoholic cirrhosis of liver Current Visit: Yes Status: Acute Code(s): K70.30 - ALCOHOLIC CIRRHOSIS OF LIVER WITHOUT ASCITES SNOMED Code(s): 582602939 (3) ETOH abuse Current Visit: No Status: Acute Code(s): F10.10 - ALCOHOL ABUSE, UNCOMPLICATED SNOMED Code(s): 48696112 Plan: 1. Continue symptomatic and supportive care 2. Lactulose 30 g 3 times a day, can give rectal as ordered if the patient unable to take oral 3. Xifaxan 550 mg by mouth twice a day 4. Continue alcohol abstinence 5. Patient to follow-up with gastroenterology following discharge 6. A nticipate discharge within the next 24 hours Thank you for this consultation, we will continue to follow. Dr. America Arzola I agree with the dictator's note, documented as a scribe by Dipika MCKEON.
--- NOTE | 2023-07-13 15:38 | P.PN ---
Subjective Progress Note Date: 07/13/23 Principal diagnosis: This is 62-year-old male with a history of alcoholic cirrhosis of the liver, CVA, hypothyroidism, hypertension, hyperlipidemia, COPD and diabetes. HPI is obtained from patient's chart as patient remains with altered mental status changes and is very lethargic. After reviewing chart looks like patient has a history of alcoholic liver cirrhosis and history of hepatic encephalopathy with portal hypertension and esophageal varices possibly diagnosed back in 2018. Patient was brought in by EMS for altered mental status changes. He currently has soft wrist restraints in place with a sitter at the bedside. He is resting with his eyes closed but arousable with stimulation. He has not answering questions appropriately. 1523 Patient seen and examined today as follow-up. He is much more awake and alert. He was able to take his oral lactulose and is having at least 3-4 bowel movements a day. Ammonia level continues to trend down with repeat ammonia 61. Patient denies any abdominal pain, no nausea or vomiting. Patient states he quit drinking many years ago. States he was taking his medication as prescribed. Objective - Vital Signs Vital signs: Vital Signs Temp 98.8 F 07/13/23 12:13 Pulse 64 07/13/23 12:13 Resp 20 07/13/23 12:13 BP 126/65 07/13/23 12:13 Pulse Ox 97 07/13/23 12:13 FiO2 Intake & Output 07/12/23 07/13/23 07/13/23 18:59 06:59 18:59 Output Total 2775 1300 300 Balance -2775 -1300 -300 Weight 106.594 kg Output: Urine 2775 1300 300 Other: Voiding Method Diaper Indwelling Catheter Indwelling Catheter # Bowel Movements 1 1 1 - Exam General appearance: The patient is alert, oriented, appears in no acute distress. HET: Head is normocephalic and atraumatic. Conjunctiva pink. Sclera anicteric. Neck: Supple without lymphadenopathy. Abdomen: Soft, nontender, nondistended with bowel sounds. No guarding or rigidity. Extremities: Normal skin color and turgor. No pedal edema Skin: No rashes, no jaundice Neurological: No focal deficits. Alert and oriented. - Labs CBC & Chem 7: 07/13/23 07:56 07/13/23 07:56 Labs: Abnormal Lab Results - Last 24 Hours (Table) 07/12/23 07/13/23 07/13/23 Range/Units 17:01 07:56 07:56 WBC 3.6 L (3.8-10.6) k/uL RBC 2.96 L (4.30-5.90) m/uL Hgb 10.1 L (13.0-17.5) gm/dL Hct 29.1 L (39.0-53.0) % Plt Count 64 L (150-450) k/uL Chloride 118 H (98-107) mmol/L Carbon Dioxide 20 L (22-30) mmol/L POC Glucose (mg/dL) 112 H (70-110) mg/dL Calcium 7.9 L (8.4-10.2) mg/dL Ammonia (<30) umol/L 07/13/23 07/13/23 Range/Units 07:56 12:29 WBC (3.8-10.6) k/uL RBC (4.30-5.90) m/uL Hgb (13.0-17.5) gm/dL Hct (39.0-53.0) % Plt Count (150-450) k/uL Chloride (98-107) mmol/L Carbon Dioxide (22-30) mmol/L POC Glucose (mg/dL) 114 H (70-110) mg/dL Calcium (8.4-10.2) mg/dL Ammonia 61 H (<30) umol/L Microbiology - Last 24 Hours (Table) 07/11/23 19:05 Blood Culture - Preliminary Blood 07/11/23 19:20 Blood Culture - Preliminary Blood Assessment and Plan (1) Hepatic encephalopathy Narrative/Plan: 62-year-old male with known history of alcoholic liver cirrhosis with many years of alcohol abuse presented to the emergency department with confusion. Chart reviewed as patient is confused and lethargic. He has a history of alcoholic cirrhosis looks as though diagnosed approximately in 2018 with history of hepatic encephalopathy, portal hypertension and esophageal varices. Patient with noted elevated ammonia at 228 on admission. Likely dealing with decompensated cirrhosis of the liver due to alcohol abuse. Continue lactulose, give rectally if needed. Current Visit: Yes Status: Acute Code(s): K72.90 - HEPATIC FAILURE, UNSPECIFIED WITHOUT COMA SNOMED Code(s): 97002299 (2) Alcoholic cirrhosis of liver Current Visit: Yes Status: Acute Code(s): K70.30 - ALCOHOLIC CIRRHOSIS OF LIVER WITHOUT ASCITES SNOMED Code(s): 943577484 Plan: 1. Continue symptomatic and supportive care 2. Continue lactulose 30 g 3 times a day, titrate to have 3-4 bowel movements daily. Must have 1 dose daily. 3. Continue Xifaxan 550 mg by mouth twice a day 4. Continue alcohol abstinence 5. Encourage ambulation 6. Anticipate discharge in the next 24 hours Thank you for this consultation, we will continue to follow. Dr. America Arzola I agree with the dictator's note, documented as a scribe by Dipika Guaman.
--- NOTE | 2023-07-13 16:00 | P.PN ---
Subjective Progress Note Date: 07/13/23 Hospital course: Patient is a pleasant 62-year-old male with a past medical history of alcoholic cirrhosis with esophageal varices, COPD with continued nicotine dependence, history of CVA, right nephrectomy, hypertension, hyperlipidemia, and hypothyroidism. He presented to the emergency department via EMS on 07/11/23 with concerns of altered mental status with history of recurrent episodes of elevated ammonia levels resulting in hepatic encephalopathy. He underwent full evaluation in the emergency department. Vital signs upon arrival showing blood pressure 112/84, heart rate 97, respiratory rate 18, temp 98.8F, SpO2 of 100% on room air. EKG was completed showing normal sinus rhythm at 80 bpm with no significant T-wave or ST abnormalities upon personal review and interpretation. Chest x-ray completed negative for acute cardiopulmonary process. CT head negative for acute intercranial process. Labs completed and reviewed. CBC showing bicytopenia with hemoglobin of 12.3 and platelet count of 78. Coreg elation profile revealing elevated PT of 12.9 and INR of 1.3. BMP revealing hyperkalemia with potassium of 5.6 and metabolic acidosis with chloride of 113, bicarb 17, anion gap of 8. Glucose was 112. Liver profile revealing Bilirubin elevated at 2.5 and AST 85. Ammonia levels significantly elevated at 237. Troponin was 0.018. Urinalysis negative for infection and urine drug screen positive for marijuana. Patient was admitted under our services with consultation to asbestos siding installer. Combined MELD score 14 points showing a 6% estimated 3 month mortality. Physical exam: Patient seen and fully evaluated at bedside this morning. Patient a complete turnaround compared to yesterday's assessment. Yesterday patient was very somnolent and upon awakening only able to state his first name and repeatedly state "I'm good". This morning patient sitting up in bed alert to person, place, time, and situation. Patient answering questions appropriately. Patient confirms history of alcoholic cirrhosis with previous reported esophageal varices. He denies having any hemoptysis or hematemesis. Patient reports it has been greater than 7 years since his last drink. He denies any needs or complaints or needs at this time. Patient having frequent bowel movements. Ammonia levels decreasing down to 61 from initial 237. Vital signs reviewed and stable. General: Nontoxic, no distress at this time. Appears older than stated age. Derm: Skin warm and dry, jaundiced Head: Atraumatic, normocephalic and symmetric. Eyes: EOMs intact, no lid lag, and garlic Terrace Mouth: no lip lesions, mucus membranes moist Cardiovascular: regular rate and rhythm with normal S1S2, no murmur, positive posterior tibial pulses bilaterally, and cap refill < 2 seconds. Lungs: Respirations even, regular, and unlabored on room air. Lungs CTA bilaterally, no rhonchi, no rales, no wheezing, and no accessory muscle usage. Abdominal: soft distended, nontender to palpation, no guarding, no appreciable organomegaly Ext: ROM intact. No gross muscle atrophy, no edema, no contractures Neuro: Speech clear, face symmetrical and CN II-XII grossly intact with no noted focal neuro deficits Psych: Alert and oriented to person, place, time, and situation. Appropriate and pleasant affect. Assessment and Plan of Care: Hepatic encephalopathy secondary to hyperammonia Alcoholic liver cirrhosis with previous known esophageal varices Pancytopenia secondary to chronic alcohol abuse Hyperbilirubinemia Elevated liver enzymes Hypertension COPD with continued nicotine dependence Gastroenterology following, discussed plan of care with gastroenterology FARMWORKER recommending once ammonia levels are back to normal, titrate lactulose to have 3-4 bowel movements daily. Continue Telemetry monitoring Continue with increased dose of lactulose at 30 g 3 times daily along with rifaximin 550 mg twice daily, spironolactone 100 mg daily, and Lasix 40 mg daily. Order placed for repeat CBC, CMP and ammonia levels tomorrow morning to monitor for improvement in hyperammonia, follow-up on liver function and pancytopenia -Continue Thiamine 100 mg twice a day, Multivitamin daily, amd Folate 1 mg daily Data review: Morning labs reviewed. CBC showing pancytopenia with WBC count of 3.6, hem oglobin 10.1, and platelet count of 64. BMP pending. Ammonia levels significantly improving down to 61 from initial 237. Patient's mentation now back to baseline. Vital signs reviewed. Blood pressure 133/64, heart rate 79, respiratory rate 20, temperature 98.8F, SpO2 of 96% on room air. Imaging review: No new imaging for review at this time. CODE STATUS: Full code DVT prophylaxis: SCDs Discussed with: Pt, gastroenterology FARMWORKER and RN Anticipated discharge date: Likely 24-[address]: home with Patient was seen independently by Nurse Pracitioner. This document was prepared using [employer] dictation software. Please allow for errors in shingle inspector, while rare they do occur. I reviewed the documentation as provided by the VIRGEN above, who is the original author of this note. I agree with the documented assessment and plan, with the following changes: none Objective - Vital Signs Vital signs: Vital Signs Temp 98.8 F 07/13/23 08:00 Pulse 79 07/13/23 08:00 Resp 20 07/13/23 08:00 BP 133/64 07/13/23 08:00 Pulse Ox 96 07/13/23 08:00 FiO2 Intake & Output 07/12/23 07/13/23 07/13/23 18:59 06:59 18:59 Output Total 2775 1300 Balance -2775 -1300 Weight 106.594 kg Output: Urine 2775 1300 Other: Voiding Method Diaper Indwelling Catheter # Bowel Movements 1 1 - Labs CBC & Chem 7: 07/13/23 07:56 07/13/23 07:56 Labs: Abnormal Lab Results - Last 24 Hours (Table) 07/12/23 07/12/23 07/12/23 Range/Units 08:29 08:29 08:29 WBC (3.8-10.6) k/uL RBC 3.18 L (4.30-5.90) m/uL Hgb 10.7 L (13.0-17.5) gm/dL Hct 31.5 L (39.0-53.0) % Plt Count 65 L (150-450) k/uL Chloride 119 H (98-107) mmol/L Carbon Dioxide 17 L (22-30) mmol/L Glucose 100 H (74-99) mg/dL POC Glucose (mg/dL) (70-110) mg/dL Calcium (8.4-10.2) mg/dL Total Bilirubin 2.0 H (0.2-1.3) mg/dL Ammonia 100 H (<30) umol/L Total Protein 6.0 L (6.3-8.2) g/dL Albumin 2.6 L (3.5-5.0) g/dL 07/12/23 07/12/23 07/13/23 Range/Units 11:46 17:01 07:56 WBC 3.6 L (3.8-10.6) k/uL RBC 2.96 L (4.30-5.90) m/uL Hgb 10.1 L (13.0-17.5) gm/dL Hct 29.1 L (39.0-53.0) % Plt Count 64 L (150-450) k/uL Chloride (98-107) mmol/L Carbon Dioxide (22-30) mmol/L Glucose (74-99) mg/dL POC Glucose (mg/dL) 115 H 112 H (70-110) mg/dL Calcium (8.4-10.2) mg/dL Total Bilirubin (0.2-1.3) mg/dL Ammonia (<30) umol/L Total Protein (6.3-8.2) g/dL Albumin (3.5-5.0) g/dL 07/13/23 07/13/23 Range/Units 07:56 07:56 WBC (3.8-10.6) k/uL RBC (4.30-5.90) m/uL Hgb (13.0-17.5) gm/dL Hct (39.0-53.0) % Plt Count (150-450) k/uL Chloride 118 H (98-107) mmol/L Carbon Dioxide 20 L (22-30) mmol/L Glucose (74-99) mg/dL POC Glucose (mg/dL) (70-110) mg/dL Calcium 7.9 L (8.4-10.2) mg/dL Total Bilirubin (0.2-1.3) mg/dL Ammonia 61 H (<30) umol/L Total Protein (6.3-8.2) g/dL Albumin (3.5-5.0) g/dL Microbiology - Last 24 Hours (Table) 07/11/23 19:20 Blood Culture - Preliminary Blood
[2023-07-13 17:20] LABS: Glucose,Whole Blood 129 mg/dL (70-110)
[2023-07-13] MEDS: NICOTINE 21MG/24HR PATCH TRANSDERM SCH (17:28)
[2023-07-13 21:24] LABS: Glucose,Whole Blood 120 mg/dL (70-110)
[2023-07-14] MEDS: LEVOTHYROXINE 125 MCG TAB PO SCH (06:49)
[2023-07-14 07:45] LABS: Glucose,Whole Blood 112 mg/dL (70-110)
[2023-07-14 07:55] VITALS: RESP 16
[2023-07-14] MEDS: FUROSEMIDE 40 MG TAB PO SCH (09:15)
[2023-07-14] MEDS: RIFAXIMIN 550 MG TABLET PO SCH (09:15)
[2023-07-14] MEDS: THIAMINE 100 MG TAB PO SCH (09:16)
[2023-07-14] MEDS: lisinopriL 10 MG TAB PO SCH (09:16)
[2023-07-14] MEDS: SPIRONOLACTONE 25 MG TAB PO SCH (09:16)
[2023-07-14] MEDS: LACTULOSE 20 GM/30 ML CUP PO SCH ×2 (09:17→15:47)
[2023-07-14] MEDS: NICOTINE 21MG/24HR PATCH TRANSDERM SCH (09:17)
[2023-07-14] MEDS: MULTIVITAMINS, THERA 1 EACH TAB PO SCH (09:17)
[2023-07-14] MEDS: FERROUS SULFATE 325 MG TAB PO SCH (09:19)
[2023-07-14 09:25] LABS: ALT 35 U/L (10-49); AST 60 U/L (14-35); Albumin 2.8 d/dL (3.8-4.9); Alkaline Phosphatase 96 U/L (41-126); BUN/Creat Ratio 11.22 Ratio (12.00-20.00); Blood Urea Nitrogen 10.1 mg/dL (9.0-27.0); Calcium 8.9 mg/dL (8.7-10.3); Carbon Dioxide 24.2 mmol/L (21.6-31.8); Chloride 111 mmol/L (96-109); Globulin 3.1 d/dL (1.6-3.3); Glucose 89 mg/dL (70-110); Potassium 3.8 mmol/L (3.5-5.5); Sodium 142 mmol/L (135-145); Total Bilirubin 1.7 mg/dL (0.3-1.2); Total Protein 5.9 d/dL (6.2-8.2)
--- NOTE | 2023-07-14 11:05 | P.DS ---
Providers Date of admission: 07/11/23 22:01 Expected date of discharge: 07/14/23 Attending physician: Tuan Cheatham MD Consults: 07/11/23 22:38 Consult Physician Stat Consulting Provider: Ambreen Arzola Consult Reason/Comments: Hepatic encephalopathy and alcoholic cirrhosis Do you want consulting provider notified?: Yes Primary care physician: [facility] Course: Discharge Diagnosis: Hepatic encephalopathy Alcoholic cirrhosis Pancytopenia secondary to liver disease, with leukopenia, anemia, and thrombocytopenia Hypertension COPD without exacerbation Hyperkalemia, resolved Metabolic acidosis, hyperchloremic Hospital Course: Patient is a 62-year-old male with alcoholic cirrhosis and esophageal varices with no alcohol use in 7 years, COPD with continued nicotine dependency, hypertension, dyslipidemia, and multiple other comorbid conditions who presented to the ER with altered mentation and a history of recurrent episodes of elevated ammonia. In the ER he underwent an extensive evaluation. On arrival his vital signs were within normal limits. Chest x-ray showed no acute process. CT head showed no acute process. Laboratory analysis was remarkable for hemoglobin 12.3, platelets 78, INR 1.3, potassium 5.6, chloride 111, bicarb 17, bilirubin 2.5, AST 85, troponin 0.018, and ammonia level [id number]. Urine drug screen was positive for marijuana. Patient was subsequently admitted and started on lactulose and Xifaxan. Meld score was 14 showing a 6% estimated 3 month mortali ty rate. GI agreed with continued lactulose and Xifaxan. The patient had multiple bowel movements. His ammonia level normalized. He was doing well and determined stable for discharge home. Follow-up: Dr. Gallegos in 1-2 weeks, [facility] in 1-2 weeks. He was given refills on Xifaxan and lactulose. He was given instructions to titrate lactulose to 3-4 bowel movements daily. Patient seen and examined at bedside. He is unsure what caused his ammonia level is high, he adamantly denies missing any medications. He is feeling well. Denies any chest pain, shortness breath, nausea and vomiting. He has had multiple bowel movements last 24 hours. He would like to go. Vital signs reviewed and stable. General: nontoxic, no distress, appears at stated age, multiple areas of ecchymosis in various stages of healing Cardiovascular: S1S2 reg, no murmur, positive posterior tibial pulse bilateral, Lungs: Decreased breath bilateral, no rhonchi, no rales , no accessory muscle use Abdominal: soft, nontender to palpation, no guarding, no appreciable organomegaly Ext: + gross muscle atrophy, no edema b/l lower extremities, no contractures Neuro: CN II-XI grossly intact, no focal neuro deficits Psych: Alert, oriented, appropriate affect A total of 25 minutes of time were spent preparing this complex discharge summary. Patient was discharged on 07/14/23. This dictation was prepared using Smart[employer] voice recognition software. Though every attempt is made to correct errors during dictation some may still exist. Patient Condition at Discharge: Stable Plan - Discharge Summary Discharge Rx Participant: No New Discharge Prescriptions: Continue Ferrous Sulfate [Iron (65 MG Elemental)] 325 mg PO MOWEFR Multivitamins, Thera [Multivitamin (formulary)] 1 tab PO DAILY lisinopriL [Zestril] 10 mg PO DAILY Thiamine [Vitamin B-1] 100 mg PO DAILY Levothyroxine Sodium [Synthroid] 125 mcg PO DAILY Ipratropium-Albuterol Nebulize [Duoneb 0.5 mg-3 mg/3 ml Soln] 3 ml INHALATION RT-Q6H PRN PRN Reason: Shortness Of Breath Spironolactone [Aldactone] 100 mg PO DAILY #60 tab Rifaximin [Xifaxan] 550 mg PO AC-BID #60 tab Albuterol Inhaler [Ventolin Hfa Inhaler] 2 puff INHALATION RT-QID PRN PRN Reason: Shortness Of Breath Furosemide [Lasix] 40 mg PO DAILY #60 tab Lactulose [Cephulac] 20 gm PO TID #1000 ml Discharge Medication List Ferrous Sulfate [Iron (65 MG Elemental)] 325 mg PO MOWEFR 08/18/18 [History] Multivitamins, Thera [Multivitamin (formulary)] 1 tab PO DAILY 09/14/19 [History] lisinopriL [Zestril] 10 mg PO DAILY 09/14/19 [History] Albuterol Inhaler [Ventolin Hfa Inhaler] 2 puff INHALATION RT-QID PRN 06/23/23 [History] Ipratropium-Albuterol Nebulize [Duoneb 0.5 mg-3 mg/3 ml Soln] 3 ml INHALATION RT-Q6H PRN 06/23/23 [History] Levothyroxine Sodium [Synthroid] 125 mcg PO DAILY 06/23/23 [History] Thiamine [Vitamin B-1] 100 mg PO DAILY 06/23/23 [History] Furosemide [Lasix] 40 mg PO DAILY #60 tab 06/27/23 [Rx] Spironolactone [Aldactone] 100 mg PO DAILY #60 tab 06/27/23 [Rx] Lactulose [Cephulac] 20 gm PO TID #1000 ml 07/14/23 [Rx] Rifaximin [Xifaxan] 550 mg PO AC-BID #60 tab 07/14/23 [Rx] Follow up Appointment(s)/Referral(s): Ambreen Arzola MD [STAFF PHYSICIAN] - 07/29/23 2:45 pm [facility] [Primary Care Provider] - 07/23/23 9:00 am Patient Instructions/Handouts: Lactulose (By mouth), Rifaximin (By mouth), Hepatic Encephalopathy (DC) Activity/Diet/Wound Care/Special Instructions: Activity: As tolerated Diet: low sodium Special Instructions: Please titrate your lactulose use to 3-4 bowel movements daily, if you are having more bowel movements than that you can decrease your lactulose to twice daily. Discharge Disposition: HOME SELF-CARE
[2023-07-14 12:19] LABS: Glucose,Whole Blood 218 mg/dL (70-110)
[2023-07-14 12:34] VITALS: BP 149/56; PULSE 82; TEMP 99.5
[2023-07-14 13:39] LABS: HCT 32.6 % (39.6-50.0); HGB 10.8 d/dL (13.0-17.0); Immature Platelet Fraction 6.4 % (1.1-6.1); MCH 32.3 pg (27.0-32.0); MCHC 33.1 d/dL (32.0-37.0); MCV 97.6 FL (80.0-97.0); Mean Platelet Volume 11.8 FL (9.5-12.2); NRBC Per 100 WBC 0 X 10*3/uL (0.00-0.01); Platelet Count 70 X 10*3/uL (140-440); RBC 3.34 X 10*6/uL (4.40-5.60); RDW 15.1 % (11.5-14.5)
--- NOTE | 2023-07-14 14:13 | P.PN ---
Subjective Progress Note Date: 07/14/23 This is 62-year-old male with a history of alcoholic cirrhosis of the liver, CVA, hypothyroidism, hypertension, hyperlipidemia, COPD and diabetes. HPI is obtained from patient's chart as patient remains with altered mental status changes and is very lethargic. After reviewing chart looks like patient has a history of alcoholic liver cirrhosis and history of hepatic encephalopathy with portal hypertension and esophageal varices possibly diagnosed back in 2018. Patient was brought in by EMS for altered mental status changes. He currently has soft wrist restraints in place with a sitter at the bedside. He is resting with his eyes closed but arousable with stimulation. He has not answering quest ions appropriately. 07/13/2023 Patient seen and examined today as follow-up. He is much more awake and alert. He was able to take his oral lactulose and is having at least 3-4 bowel movements a day. Ammonia level continues to trend down with repeat ammonia 61. Patient denies any abdominal pain, no nausea or vomiting. Patient states he quit drinking many years ago. States he was taking his medication as prescribed. 07/14/2023 Patient was seen and examined today as a follow-up. His sitting up at the bedside. His awake and alert. Denies any abdominal pain, nausea, or vomiting. No shortness breath or chest pain. His been afebrile. Having at least 2-3 bowel movements daily. Patient states he is ready to go home. Objective - Vital Signs Vital signs: Vital Signs Temp 99.5 F 07/14/23 12:17 Pulse 82 07/14/23 12:17 Resp 16 07/14/23 12:17 BP 149/56 07/14/23 12:17 Pulse Ox 99 07/14/23 12:17 FiO2 Intake & Output 07/13/23 07/14/23 07/14/23 18:59 06:59 18:59 Output Total 600 1700 Balance -600 -1700 Output: Urine 600 1700 Other: Voiding Method Indwelling Catheter Urinal Urinal # Voids 1 1 1 # Bowel Movements 1 1 - Exam General appearance: The patient is alert, oriented, appears in no acute distress. HET: Head is normocephalic and atraumatic. Conjunctiva pink. Sclera anicteric. Neck: Supple without lymphadenopathy. Abdomen: Soft, nontender, nondistended with bowel sounds. No guarding or rigidity. Extremities: Normal skin color and turgor. No pedal edema Skin: No rashes, no jaundice Neurological: No focal deficits. Alert and oriented. - Labs CBC & Chem 7: 07/14/23 05:29 07/14/23 05:29 Labs: Abnormal Lab Results - Last 24 Hours (Table) 07/13/23 07/13/23 07/14/23 Range/Units 17:04 21:18 05:29 RBC (4.40-5.60) X 10*6/uL Hgb (13.0-17.0) d/dL Hct (39.6-50.0) % MCV (80.0-97.0) FL MCH (27.0-32.0) pg RDW (11.5-14.5) % Plt Count (140-440) X 10*3/uL Immature Plt Fraction (1.1-6.1) % Chloride 111 H (96-109) mmol/L BUN/Creatinine Ratio 11.22 L (12.00-20.00) Ratio POC Glucose (mg/dL) 129 H 120 H (70-110) mg/dL Total Bilirubin 1.7 H (0.3-1.2) mg/dL AST 60 H (14-35) U/L Total Protein 5.9 L (6.2-8.2) d/dL Albumin 2.8 L (3.8-4.9) d/dL Albumin/Globulin Ratio 0.90 L (1.60-3.17) Ratio 07/14/23 07/14/23 07/14/23 Range/Units 05:29 07:43 12:17 RBC 3.34 L (4.40-5.60) X 10*6/uL Hgb 10.8 L (13.0-17.0) d/dL Hct 32.6 L (39.6-50.0) % MCV 97.6 H (80.0-97.0) FL MCH 32.3 H (27.0-32.0) pg RDW 15.1 H (11.5-14.5) % Plt Count 70 L (140-440) X 10*3/uL Immature Plt Fraction 6.4 H (1.1-6.1) % Chloride (96-109) mmol/L BUN/Creatinine Ratio (12.00-20.00) Ratio POC Glucose (mg/dL) 112 H 218 H (70-110) mg/dL Total Bilirubin (0.3-1.2) mg/dL AST (14-35) U/L Total Protein (6.2-8.2) d/dL Albumin (3.8-4.9) d/dL Albumin/Globulin Ratio (1.60-3.17) Ratio Microbiology - Last 24 Hours (Table) 07/11/23 19:05 Blood Culture - Preliminary Blood 07/11/23 19:20 Blood Culture - Preliminary Blood Assessment and Plan (1) Hepatic encephalopathy Narrative/Plan: 62-year-old male with known history of alcoholic liver cirrhosis with many years of alcohol abuse presented to the emergency department with confusion. Chart reviewed as patient is confused and lethargic. He has a history of alcoholic cirrhosis looks as though diagnosed approximately in 2018 with history of hepatic encephalopathy, portal hypertension and esophageal varices. Patient with noted elevated ammonia at 228 on admission. Likely dealing with d ecompensated cirrhosis of the liver due to alcohol abuse. Continue lactulose, give rectally if needed. Current Visit: Yes Status: Acute Code(s): K72.90 - HEPATIC FAILURE, UNSPECIFIED WITHOUT COMA SNOMED Code(s): 99063354 (2) Alcoholic cirrhosis of liver Current Visit: Yes Status: Acute Code(s): K70.30 - ALCOHOLIC CIRRHOSIS OF LIVER WITHOUT ASCITES SNOMED Code(s): 545072485 Plan: 1. Continue symptomatic and supportive care 2. Continue lactulose 30 g 3 times a day, titrate to have 3-4 bowel movements daily. Must have 1 dose daily. 3. Continue Xifaxan 550 mg by mouth twice a day 4. Continue alcohol abstinence 5. Encourage ambulation 6. Patient is cleared for discharge from gastroenterology. He will need follow-up in 1-2 weeks. Thank you for this consultation, we will sign off at this time. Dr. America Arzola I agree with the dictator's note, documented as a scribe by Dipika Guaman.
== END 2023-07-14 17:01 | disposition home or self-care (01) | DRG 433 ==
LOC: EC 17:20 → 5NMEDONC 22:01
PROVIDERS: ADMIT Internal Medicine; ATTEND Internal Medicine
DX: K70.30 Alcoholic cirrhosis of liver without ascites (principal); D61.818 Other pancytopenia; E87.20 Acidosis, unspecified; I85.10 Secondary esophageal varices without bleeding; K76.6 Portal hypertension; J98.11 Atelectasis; K76.82 Hepatic encephalopathy; E78.5 Hyperlipidemia, unspecified; E87.5 Hyperkalemia; E87.8 Other disorders of electrolyte and fluid balance, not elsewhere classified; F17.210 Nicotine dependence, cigarettes, uncomplicated; F31.9 Bipolar disorder, unspecified; H91.92 Unspecified hearing loss, left ear; I10 Essential (primary) hypertension; K31.89 Other diseases of stomach and duodenum; K70.40 Alcoholic hepatic failure without coma; Z78.1 Physical restraint status; Z79.890 Hormone replacement therapy; Z79.899 Other long term (current) drug therapy; Z80.8 Family history of malignant neoplasm of other organs or systems; Z86.73 Personal history of transient ischemic attack (TIA), and cerebral infarction without residual deficits; Z90.5 Acquired absence of kidney; J44.9 Chronic obstructive pulmonary disease, unspecified; Z88.0 Allergy status to penicillin; Z87.442 Personal history of urinary calculi
CPT/HCPCS: 36415; 70450; 71045; 80048; 80053; 80306; 81003; 82140; 84484; 85025; 85027; 85610; 85730; 87040; 93005; 94760; 96360; 96361; 99285

== ENCOUNTER 2023-10-18 21:10 | Inpatient (IN) | payer MEDICARE, OTHER ==
--- NOTE | 2023-10-18 21:26 | ED ---
Altered Mental Status HPI - General Chief Complaint: Altered Mental Status Stated Complaint: ALT Mental Time Seen by Provider: 10/18/23 21:23 Source: patient Mode of arrival: EMS Limitations: no limitations - History of Present Illness Initial Comments: Brodie is a 63-year-old male with history of alcoholic liver disease who is brought to the hospital today by EMS for altered mental status. Family reports that the patient was recently hospitalized for 2 days, patient has been home but has been constipated. Family reports that he is not acting like himself he seems very confused family told EMS this is what happens when his ammonia gets too high. Family did not come to bedside. - Related Data Home Medications Medication Instructions Recorded Confirmed Ferrous Sulfate [Iron (65 MG 325 mg PO MOWEFR 08/18/18 10/18/23 Elemental)] Multivitamins, Thera [Multivitamin 1 tab PO DAILY 09/14/19 10/18/23 (formulary)] lisinopriL [Zestril] 10 mg PO DAILY 09/14/19 10/18/23 Ipratropium-Albuterol Nebulize 3 ml INHALATION RT-Q6H PRN 06/23/23 10/18/23 [Duoneb 0.5 mg-3 mg/3 ml Soln] Levothyroxine Sodium [Synthroid] 125 mcg PO DAILY 06/23/23 10/18/23 Thiamine [Vitamin B-1] 100 mg PO DAILY 06/23/23 10/18/23 Albuterol Sulfate [Albuterol 2 puff PO RT-QID PRN 10/18/23 10/18/23 Sulfate Hfa] Fenofibrate 54 mg PO DAILY 10/18/23 10/18/23 Magnesium Oxide [Mag-Ox] 400 mg PO BID 10/18/23 10/18/23 Potassium Chloride 10 meq PO DAILY 10/18/23 10/18/23 Tamsulosin [Flomax] 0.4 mg PO DAILY 10/18/23 10/18/23 Previous Rx's Medication Instructions Recorded Furosemide [Lasix] 40 mg PO DAILY #60 tab 06/27/23 Allergies Allergy/AdvReac Type Severity Reaction Status Date / Time Penicillins Allergy Unknown Verified 10/18/23 22:10 Childhood Review of Systems ROS Statement: Those systems with pertinent positive or pertinent negative responses have been documented in the HPI. ROS Other: All systems not noted in ROS Statement are negative. Past Medical History Past Medical History: COPD, CVA/TIA, Diabetes Mellitus, Hearing Disorder / Deafness, Hyperlipidemia, Hypertension, Liver Disease, Thyroid Disorder Additional Past Medical History / Comment(s): Pt recently admitted to [facility] on 08/05/18 with acute hepatic encephalopathy/increased ammonia levels. Other hx: Alcoholism, alcoholic liver cirrhosis, history of hepatic encephalopathy, portal hypertension and esophageal varices and portal hypertensive gastropathy, significant other states pt has not drank alcohol since March 2018, CVA, kidney stones, hypothyroidism, L ear deafness. Last Myocardial Infarction Date:: unknown History of Any Multi-Drug Resistant Organisms: None Reported Past Surgical History: Joint Replacement Additional Past Surgical History / Comment(s): Right nephrectomy as an for nonfunctioning kidney, bilateral total knee surgery, liver drain or stents done at [facility], EGD Past Anesthesia/Blood Transfusion Reactions: No Reported Reaction Additional Past Anesthesia/Blood Transfusion Reaction / Comment(s): blood trandfusion - no known reaction Past Psychological History: Bipolar, Depression Smoking Status: Current every day smoker Past Alcohol Use History: Abuse Past Drug Use History: None Reported - Past Family History Mother Family Medical History: Cancer Additional Family Medical History / Comment(s): skin cancer Father History Unknown: Yes Additional Family Medical History / Comment(s): pt was raised buy his step dad. General Exam Limitations: no limitations General appearance: alert Head exam: Present: atraumatic, normocephalic Eye exam: Present: PERRL. Absent: scleral icterus ENT exam: Present: mucous membranes dry Respiratory exam: Absent: respiratory distress Cardiovascular Exam: Present: normal rhythm, tachycardia GI/Abdominal exam: Present: soft. Absent: distended Extremities exam: Present: full ROM Neurological exam: Present: alert, other (Oriented to self, intermittently follows commands) Psychiatric exam: Present: other (Unable to assess due to altered mental status) Skin exam: Present: other (Bruising noted on the anterior medial right leg) Course Vital Signs 10/18/23 10/19/23 10/19/23 21:13 00:34 01:32 Temperature 99.3 F Pulse Rate 103 H 93 84 Respiratory 20 19 19 Rate Blood Pressure 125/103 165/78 152/82 O2 Sat by Pulse 96 98 Oximetry 10/19/23 04:31 Temperature Pulse Rate 77 Respiratory 19 Rate Blood Pressure 146/58 O2 Sat by Pulse 98 Oximetry Procedures - Restraint - Face to Face Restraint Occurrence 1 Patient's Immediate Situation: Endangers self safety Patient's Reaction to the Intervention: Uncooperative, Restless Patient's Medical & Behavioral Condition: Awake, Confused, Bizarre behavior Need to Continue or Terminate Restraint or Seclusion: Continue Face to Face Eval of Restraint Date: 10/19/23 Face to Face Eval of Restraint Time: 00:01 - Sepsis Sepsis Focused Exam #1 Time Sepsis Criteria Met: 01:56 Sepsis Focused Exam Date: 10/19/23 Sepsis Focused Exam Time: 02:00 Capillary Refill: > 2 Seconds: Fingers, Toes Peripheral Pulses: Normal: Radial (R), Radial (L) Skin Color: Normal for Patient Respiratory Exam: normal lung sounds Cardiovascular Exam: tachycardia Medical Decision Making - Medical Decision Making Was pt. sent in by a medical professional or institution (, PA, COMMAND AND CONTROL SPECIALIST, urgent care, hospital, or alf...) When possible be specific @ -No Did you speak to anyone other than the patient for history (EMS, parent, family, police, friend...)? What history was obtained from this source @ -EMS Did you review nursing and triage notes (agree or disagree)? Why? @ -I reviewed and agree with nursing and triage notes Were old charts reviewed (outside hosp., previous admission, EMS record, old EKG, old radiological studies, urgent care reports/EKG's, alf records)? Report findings @ -Previous admission and labs were reviewed Differential Diagnosis (chest pain, altered mental status, abdominal pain women, abdominal pain men, vaginal bleeding, weakness, fever, dyspnea, syncope, headache, dizziness, GI bleed, back pain, seizure, CVA, palpatations, mental health, musculoskeletal)? @ -Differential Altered Mental Status: Hypoglycemia, DKA, hypercapnia, ETOH, overdose, CO poisoning, trauma, myxedema coma, HTN encephalopathy, infection, encephalitis, psychosis, intercranial hemorrhage, hepatic encephalopathy, meningitis, CVA, this is not meant to be an all-inclusive list EKG interpreted by me (3pts min.). @ -As above X-rays interpreted by me (1pt min.). Chest x-ray with no pneumothorax, no large focal consolidations - over read by radiology with concern for perihilar opacities this is likely related to COVID- 19 however we will treat empirically for pneumonia CT interpreted by me (1pt min.). @ -None done U/S interpreted by me (1pt. min.). @ -None done What testing was considered but not performed or refused? (CT, X-rays, U/S, labs)? Why? @ -None What meds were considered but not given or refused? Why? @ -None Did you discuss the management of the patient with other professionals (prof jeanine i.e. , PA, COMMAND AND CONTROL SPECIALIST, lab, RT, psych nurse, social science professor, sales representative door to door, teacher, probation officer, lead case manager)? Give summary @ -Admitting physician Dr. Cheatham Was smoking cessation discussed for >3mins.? @ -No Was critical care preformed (if so, how long)? @ -No Were there social determinants of health that impacted care today? How? (Homelessness, low income, unemployed, alcoholism, drug addiction, transportation, low edu. Level, literacy, decrease access to med. care, shelter, rehab)? @ -Alcoholism Was there de-escalation of care discussed even if they declined (Discuss DNR or withdrawal of care, Hospice)? DNR status @ -No What co-morbidities impacted this encounter? (DM, HTN, Smoking, COPD, CAD, Cancer, CVA, ARF, Chemo, Hep., AIDS, mental health diagnosis, sleep apnea, morbid obesity)? @ -Alcoholic cirrhosis Was patient admitted / discharged? Hospital course, mention meds given and route, prescriptions, significant lab abnormalities, going to OR and other pert inent info. @ -Admit The patient was seen and evaluated upon arrival, patient was noted to be tachycardic temperature was mildly elevated but not technically a fever, patient was altered has history of liver disease, workup was initiated, due to history of cirrhosis with ascites gentle fluids were ordered initially. Patient lactic acidosis with a lactic greater than 4 this is likely multifactorial related to acute illness as well as chronic liver disease and inability to metabolize lactic appropriately, a second 1 L bolus and IV fluids at 130 mL/h were ordered Patient did have significantly elevated ammonia level which could cause his altered mental status however he also tested positive for COVID 19 which would explain his temperature elevation and elevated heart rate. Chest x-ray showed some perihilar opacities this is likely due to COVID-19 virus however with an abundance of caution a single dose of IV antibiotics was ordered Patient's lactic improving after IV fluids, patient's stature improving blood pressure is stable, he's well perfused at this time there is no signs of severe sepsis and patient seems to be improving She'll be admitted to the floor for hepatic encephalopathy and COVID-19 Undiagnosed new problem with uncertain prognosis? @ -Yes, COVID-19 Drug Therapy requiring intensive monitoring for toxicity (Heparin, Nitro, Insulin, Cardizem)? @ -No Were any procedures done? @ -No Diagnosis/symptom? @ -Metabolic encephalopathy secondary to alcohol and liver cirrhosis and elevated ammonia level Acute, or Chronic, or Acute on Chronic? @ -Acute on chronic Uncomplicated (without systemic symptoms) or Complicated (systemic symptoms)? @ -Complicated Side effects of treatment? @ -No Exacerbation, Progression, or Severe Exacerbation? @ -No Poses a threat to life or bodily function? How? (Chest pain, USA, RI, pneumonia, PE, COPD, DKA, ARF, appy, cholecystitis, CVA, Diverticulitis, Homicidal, Suicidal, threat to staff... and all critical care pts) @ -Yes Diagnosis/symptom? @ -COVID 19 Acute, or Chronic, or Acute on Chronic? @ -Acute Uncomplicated (without systemic symptoms) or Complicated (systemic symptoms)? @ -Complicated Side effects of treatment? @ -none Exacerbation, Progression, or Severe Exacerbation] @ -no Poses a threat to life or bodily function? @ -Yes - Lab Data Result diagrams: 10/19/23 04:26 10/19/23 04:26 Lab Results 10/18/23 10/18/23 10/18/23 Range/Units 21:31 21:31 21:31 WBC 4.6 (3.8-10.6) k/uL RBC 3.63 L (4.30-5.90) m/uL Hgb 11.5 L (13.0-17.5) gm/dL Hct 35.0 L (39.0-53.0) % MCV 96.5 (80.0-100.0) fL MCH 31.6 (25.0-35.0) pg MCHC 32.8 (31.0-37.0) g/dL RDW 15.3 (11.5-15.5) % Plt Count 85 L (150-450) k/uL MPV 9.6 Neutrophils % 80 % Lymphocytes % 6 % Monocytes % 11 % Eosinophils % 1 % Basophils % 0 % Neutrophils # 3.7 (1.3-7.7) k/uL Lymphocytes # 0.3 L (1.0-4.8) k/uL Monocytes # 0.5 (0-1.0) k/uL Eosinophils # 0.0 (0-0.7) k/uL Basophils # 0.0 (0-0.2) k/uL Sodium 141 (137-145) mmol/L Potassium 3.8 (3.5-5.1) mmol/L Chloride 114 H (98-107) mmol/L Carbon Dioxide 17 L (22-30) mmol/L Anion Gap 10 mmol/L BUN 22 H (9-20) mg/dL Creatinine 1.22 (0.66-1.25) mg/dL Est GFR (CKD-EPI)AfAm 72 (>60 ml/min/1.73 sqM) Est GFR (CKD-EPI)NonAf 62 (>60 ml/min/1.73 sqM) Glucose 92 (74-99) mg/dL Lactic Ac Sepsis Rflx Plasma Lactic Acid Iker 4.2 H* (0.7-2.0) mmol/L Calcium 8.9 (8.4-10.2) mg/dL Total Bilirubin 2.1 H (0.2-1.3) mg/dL AST 102 H (17-59) U/L ALT 42 (4-49) U/L Alkaline Phosphatase 152 H (38-126) U/L Ammonia 77 H (<30) umol/L Total Protein 6.6 (6.3-8.2) g/dL Albumin 2.9 L (3.5-5.0) g/dL Serum Alcohol <10 mg/dL Influenza Type A (PCR) (Not Detectd) Influenza Type B (PCR) (Not Detectd) RSV (PCR) (Not Detectd) SARS-CoV-2 (PCR) (Not Detectd) 10/18/23 10/18/23 Range/Units 21:45 22:17 WBC (3.8-10.6) k/uL RBC (4.30-5.90) m/uL Hgb (13.0-17.5) gm/dL Hct (39.0-53.0) % MCV (80.0-100.0) fL MCH (25.0-35.0) pg MCHC (31.0-37.0) g/dL RDW (11.5-15.5) % Plt Count (150-450) k/uL MPV Neutrophils % % Lymphocytes % % Monocytes % % Eosinophils % % Basophils % % Neutrophils # (1.3-7.7) k/uL Lymphocytes # (1.0-4.8) k/uL Monocytes # (0-1.0) k/uL Eosinophils # (0-0.7) k/uL Basophils # (0-0.2) k/uL Sodium (137-145) mmol/L Potassium (3.5-5.1) mmol/L Chloride (98-107) mmol/L Carbon Dioxide (22-30) mmol/L Anion Gap mmol/L BUN (9-20) mg/dL Creatinine (0.66-1.25) mg/dL Est GFR (CKD-EPI)AfAm (>60 ml/min/1.73 sqM) Est GFR (CKD-EPI)NonAf (>60 ml/min/1.73 sqM) Glucose (74-99) mg/dL Lactic Ac Sepsis Rflx Y Plasma Lactic Acid Iker (0.7-2.0) mmol/L Calcium (8.4-10.2) mg/dL Total Bilirubin (0.2-1.3) mg/dL AST (17-59) U/L ALT (4-49) U/L Alkaline Phosphatase (38-126) U/L Ammonia (<30) umol/L Total Protein (6.3-8.2) g/dL Albumin (3.5-5.0) g/dL Serum Alcohol mg/dL Influenza Type A (PCR) Not Detected (Not Detectd) Influenza Type B (PCR) Not Detected (Not Detectd) RSV (PCR) Not Detected (Not Detectd) SARS-CoV-2 (PCR) Detected A (Not Detectd) - EKG Data -: EKG Interpreted by Ms EKG Comments: EKG was obtained and tachycardia, EKG was obtained at 2117 rate is 102 rhythm is a narrow complex regular tachycardia. Before each QRS is a sinus tachycardia. Normal axis, normal intervals, RI 154, QRS 83, QTC 427 there is no acute ST elevations or depressions no evidence of ischemia or infarction. Disposition Clinical Impression: Cirrhosis, Hepatic encephalopathy, Chronic liver disease, COVID-19 Disposition: ADMITTED IP TO THIS HOSP Condition: Serious
[2023-10-18] MEDS: SODIUM CHLORIDE 0.9% 500 ML 500 ML IV SCH ×2 (21:35→21:57)
[2023-10-18] MEDS: SODIUM CHLORIDE 0.9% 1,000 ML IV SCH (21:36)
[2023-10-18] MEDS ORDERED: LORazepam 2 MG/ML INJ IV STA (21:52)
[2023-10-18 22:00] LABS: Basophils % (A) 0 %; Eosinophils % (A) 1 %; HGB 11.5 gm/dL (13.0-17.5); Lymphocytes # (A) 0.3 k/uL (1.0-4.8); Lymphocytes % (A) 6 %; MCH 31.6 pg (25.0-35.0); MCHC 32.8 g/dL (31.0-37.0); MCV 96.5 fL (80.0-100.0); Mean Platelet Volume 9.6; Monocytes # (A) 0.5 k/uL (0-1.0); Monocytes % (A) 11 %; Neutrophils # (A) 3.7 k/uL (1.3-7.7); Neutrophils % (A) 80 %; RBC 3.63 m/uL (4.30-5.90); RDW 15.3 % (11.5-15.5); WBC 4.6 k/uL (3.8-10.6)
[2023-10-18 22:08] LABS: ALT 42 U/L (4-49); AST 102 U/L (17-59); African American GFR (CKD) 72 (>60 ml/min/1.73 sqM); Albumin 2.9 g/dL (3.5-5.0); Alcohol <10 mg/dL; Alkaline Phosphatase 152 U/L (38-126); Anion Gap 10 mmol/L; Blood Urea Nitrogen 22 mg/dL (9-20); Calcium 8.9 mg/dL (8.4-10.2); Carbon Dioxide 17 mmol/L (22-30); Chloride 114 mmol/L (98-107); Glucose 92 mg/dL (74-99); Non-African American GFR(CKD) 62 (>60 ml/min/1.73 sqM); Potassium 3.8 mmol/L (3.5-5.1); Sodium 141 mmol/L (137-145); Total Bilirubin 2.1 mg/dL (0.2-1.3); Total Protein 6.6 g/dL (6.3-8.2)
[2023-10-18 22:16] LABS: Lactic Acid, Venous 4.2 mmol/L (0.7-2.0)
[2023-10-18] MEDS ORDERED: LACTULOSE 20 GM/30 ML CUP PO ONE (22:23)
[2023-10-18 22:32] LABS: INR 1.4 (<1.2); Partial Thromboplastin Time 27.9 sec (22.0-30.0); Prothrombin Time 14.5 sec (10.0-12.5)
[2023-10-18 22:44] LABS: Platelet Count 85 k/uL (150-450)
[2023-10-18] MEDS ORDERED: NICOTINE 21MG/24HR PATCH TRANSDERM STA (23:23)
[2023-10-18] MEDS ORDERED: SODIUM CHLORIDE 0.9% 1,000 ML IV ONE (23:55)
[2023-10-19] MEDS ORDERED: NALOXONE 0.4 MG/ML 1 ML VIAL IV PRN (00:02)
[2023-10-19] MEDS ORDERED: LORazepam 2 MG/ML INJ IV STA (00:04)
[2023-10-19] MEDS ORDERED: IBUPROFEN IV 400 MG in SODIUM CHLORIDE 0.9% 100 ML IV ONE (00:15)
--- NOTE | 2023-10-19 01:57 | XR ---
EXAM: XR Chest, 1 View CLINICAL HISTORY: ITS.REASON XR Reason: sepsis TECHNIQUE: Frontal view of the chest. COMPARISON: No relevant prior studies available. FINDINGS: Lungs: Perihilar opacities, correlate for pneumonia. Pleural space: Mild pneumothorax. Heart: Unremarkable. No cardiomegaly. Mediastinum: Unremarkable. Normal mediastinal contour. Bones/joints: Unremarkable. No acute fracture. IMPRESSION: Perihilar opacities, correlate for pneumonia.
--- NOTE | 2023-10-19 04:20 | P.HPIM ---
History of Present Illness H&P Date: 10/19/23 Patient is a 63-year-old male with a PMH of alcoholic liver cirrhosis with esophageal varices, COPD, hypertension, hyperlipidemia, who presents to the emergency room for confusion. The patient had reportedly been constipated over the past several days as per family. He had been getting increasingly confused which is typical for when his ammonia levels get elevated as per family. At time of interview, the patient was still confused but did state that his had brought him to the hospital because he was not acting like himself. He denied any active complaints including any pain. Denied experiencing abdominal pain, chest discomfort, shortness of breath, fever, chills, cough, nausea, vom iting, diarrhea. In the emergency room a chest x-ray revealed perihilar opacities concerning for pneumonia. EKG revealed sinus a cardiac [address]/T-wave changes noted as reviewed by me. Laboratory evaluation revealed a lactic acid of 4.2, ammonia 77, platelet count 85, and total bilirubin 2.1 with coronavirus PCR positive. ED documentation reviewed and case discussed with ED provider. Review of systems: Pertinent positives and negatives as discussed in HPI, a complete review of systems was performed and all other systems are negative. Physical examination: Vital signs reviewed General: non toxic, no distress, appears at stated age, overweight Derm: no unusual rashes/lesions, warm Head: atraumatic, normocephalic, symmetric Eyes: EOMI, no lid lag, anicteric sclera, pupils equal round reactive to light ENT: Nose and ears atraumatic Neck: No cervical lymphadenopathy, trachea midline, supple Mouth: no lip lesion, mucus membranes moist Cardiovascular: S1S2 reg, no murmur, positive dorsalis pedis pulse bilateral, no edema Lungs: CTA bilateral, no rhonchi, no rales, no accessory muscle use Abdominal: soft, nontender to palpation, no guarding Ext: muscle strength 5 out of 5 in all 4 extremities grossly, no gross muscle atrophy, no contractures, Neuro: CN II-XI grossly intact, no gross focal neuro deficits Psych: Confused, oriented to person and place, not oriented to time Assessment: Altered mental status, likely hepatic encephalopathy Coronavirus infection, not requiring oxygen therapy Lactic acidosis Thrombocytopenia, at baseline Imaging: In the emergency room a chest x-ray revealed perihilar opacities concerning for pneumonia. EKG revealed sinus a cardiac [address]/T-wave changes noted as reviewed by me. Data Review: Laboratory evaluation revealed a lactic acid of 4.2, ammonia 77, platelet count 85, and total bilirubin 2.1 with coronavirus PCR positive. Plan: Patient does not appear to have lactulose on his home medication list despite being discharged with it back in June 2023 Continue with lactulose 20 mg by mouth 3 times a day (previous dose) Monitor lactic acid level Monitor CBC IV fluids with normal saline at 130 mL/h DVT prophylaxis: Lovenox The patient is admitted with an anticipated greater than 2 midnight stay for evaluation of AMS CODE STATUS: Full Code Discussed with: Patient Anticipated discharge place: Home Past Medical History Past Medical History: COPD, CVA/TIA, Diabetes Mellitus, Hearing Disorder / Deafness, Hyperlipidemia, Hypertension, Liver Disease, Thyroid Disorder Additional Past Medical History / Comment(s): Pt recently admitted to [facility] on 08/05/18 with acute hepatic encephalopathy/increased ammonia levels. Other hx: Alcoholism, alcoholic liver cirrhosis, history of hepatic encephalopathy, portal hypertension and esophageal varices and portal hypertensive gastropathy, significant other states pt has not drank alcohol since March 2018, CVA, kidney stones, hypothyroidism, L ear deafness. 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, bilateral total knee surgery, liver drain or stents done at [facility], EGD Past Anesthesia/Blood Transfusion Reactions: No Reported Reaction Additional Past Anesthesia/Blood Transfusion Reaction / Comment(s): blood t randfusion - no known reaction Past Psychological History: Bipolar, Depression Smoking Status: Current every day smoker Past Alcohol Use History: Abuse Past Drug Use History: None Reported - Past Family History Mother Family Medical History: Cancer Additional Family Medical History / Comment(s): skin cancer Father History Unknown: Yes Additional Family Medical History / Comment(s): pt was raised buy his step dad. Medications and Allergies Home Medications Medication Instructions Recorded Confirmed Type Ferrous Sulfate [Iron (65 MG 325 mg PO MOWEFR 08/18/18 10/18/23 History Elemental)] Multivitamins, Thera [Multivitamin 1 tab PO DAILY 09/14/19 10/18/23 History (formulary)] lisinopriL [Zestril] 10 mg PO DAILY 09/14/19 10/18/23 History Ipratropium-Albuterol Nebulize 3 ml INHALATION RT-Q6H PRN 06/23/23 10/18/23 History [Duoneb 0.5 mg-3 mg/3 ml Soln] Levothyroxine Sodium [Synthroid] 125 mcg PO DAILY 06/23/23 10/18/23 History Thiamine [Vitamin B-1] 100 mg PO DAILY 06/23/23 10/18/23 History Furosemide [Lasix] 40 mg PO DAILY #60 tab 06/27/23 10/18/23 Rx Albuterol Sulfate [Albuterol 2 puff PO RT-QID PRN 10/18/23 10/18/23 History Sulfate Hfa] Fenofibrate 54 mg PO DAILY 10/18/23 10/18/23 History Magnesium Oxide [Mag-Ox] 400 mg PO BID 10/18/23 10/18/23 History Potassium Chloride 10 meq PO DAILY 10/18/23 10/18/23 History Tamsulosin [Flomax] 0.4 mg PO DAILY 10/18/23 10/18/23 History Allergies Allergy/AdvReac Type Severity Reaction Status Date / Time Penicillins Allergy Unknown Verified 10/18/23 22:10 Childhood Physical Exam Vitals: Vital Signs Temp Pulse Resp BP Pulse Ox 10/19/23 01:32 84 19 152/82 98 10/19/23 00:34 93 19 165/78 10/18/23 21:13 99.3 F 103 H 20 125/103 96 Intake and Output 10/18/23 10/18/23 10/19/23 14:59 22:59 06:59 Other: Weight 87.997 kg Results CBC & Chem 7: 10/18/23 21:31 10/18/23 21:31 Labs: Abnormal Lab Results - Last 24 Hours (Table) 10/18/23 10/18/23 10/18/23 Range/Units 21:31 21:31 21:31 RBC 3.63 L (4.30-5.90) m/uL Hgb 11.5 L (13.0-17.5) gm/dL Hct 35.0 L (39.0-53.0) % Plt Count 85 L (150-450) k/uL Lymphocytes # 0.3 L (1.0-4.8) k/uL PT (10.0-12.5) sec INR (<1.2) Chloride 114 H (98-107) mmol/L Carbon Dioxide 17 L (22-30) mmol/L BUN 22 H (9-20) mg/dL Plasma Lactic Acid Iker 4.2 H* (0.7-2.0) mmol/L Total Bilirubin 2.1 H (0.2-1.3) mg/dL AST 102 H (17-59) U/L Alkaline Phosphatase 152 H (38-126) U/L Ammonia 77 H (<30) umol/L Albumin 2.9 L (3.5-5.0) g/dL SARS-CoV-2 (PCR) (Not Detectd) 10/18/23 10/19/23 10/19/23 Range/Units 21:45 00:12 01:22 RBC (4.30-5.90) m/uL Hgb (13.0-17.5) gm/dL Hct (39.0-53.0) % Plt Count (150-450) k/uL Lymphocytes # (1.0-4.8) k/uL PT 14.5 H (10.0-12.5) sec INR 1.4 H (<1.2) Chloride (98-107) mmol/L Carbon Dioxide (22-30) mmol/L BUN (9-20) mg/dL Plasma Lactic Acid Iker 2.7 H* (0.7-2.0) mmol/L Total Bilirubin (0.2-1.3) mg/dL AST (17-59) U/L Alkaline Phosphatase (38-126) U/L Ammonia (<30) umol/L Albumin (3.5-5.0) g/dL SARS-CoV-2 (PCR) Detected A (Not Detectd)
[2023-10-19] MEDS: SODIUM CHLORIDE 0.9% 1,000 ML IV SCH (04:21)
[2023-10-19 04:39] LABS: HCT 29.8 % (39.0-53.0); MCH 32.6 pg (25.0-35.0); MCHC 33.4 g/dL (31.0-37.0); MCV 97.5 fL (80.0-100.0); Mean Platelet Volume 9.6; Platelet Count 53 k/uL (150-450); RBC 3.06 m/uL (4.30-5.90); RDW 15.3 % (11.5-15.5); WBC 3.1 k/uL (3.8-10.6)
[2023-10-19 04:50] LABS: African American GFR (CKD) >90 (>60 ml/min/1.73 sqM); Anion Gap 5 mmol/L; Blood Urea Nitrogen 24 mg/dL (9-20); Calcium 7.8 mg/dL (8.4-10.2); Carbon Dioxide 17 mmol/L (22-30); Chloride 117 mmol/L (98-107); Glucose 108 mg/dL (74-99); Non-African American GFR(CKD) 80 (>60 ml/min/1.73 sqM); Potassium 3.5 mmol/L (3.5-5.1); Sodium 139 mmol/L (137-145)
[2023-10-19] MEDS ORDERED: AZITHROMYCIN 500 MG in SODIUM CHLORIDE 0.9% 250 ML IVPB ONE (05:00)
[2023-10-19] MEDS: LACTULOSE 20 GM/30 ML CUP PO SCH ×6 (09:45→21:30)
[2023-10-19] MEDS: TAMSULOSIN 0.4 MG CAP.ER.24H PO SCH (10:28)
[2023-10-19] MEDS: lisinopriL 10 MG TAB PO SCH (10:28)
[2023-10-19] MEDS: FUROSEMIDE 40 MG TAB PO SCH (10:28)
[2023-10-19] MEDS: LEVOTHYROXINE 125 MCG TAB PO SCH (10:28)
[2023-10-19] MEDS: FENOFIBRATE 54 MG TAB PO SCH (10:28)
[2023-10-19] MEDS: MULTIVITAMINS, THERA 1 EACH TAB PO SCH (10:28)
[2023-10-19] MEDS: THIAMINE 100 MG TAB PO SCH (10:28)
[2023-10-19] MEDS: ENOXAPARIN 40 MG/0.4 ML SYRINGE SQ SCH (10:29)
[2023-10-19 10:47] LABS: ALT 40 U/L (4-49); AST 98 U/L (17-59); African American GFR (CKD) >90 (>60 ml/min/1.73 sqM); Albumin 2.2 g/dL (3.5-5.0); Alkaline Phosphatase 110 U/L (38-126); Anion Gap 5 mmol/L; Blood Urea Nitrogen 22 mg/dL (9-20); Calcium 7.4 mg/dL (8.4-10.2); Carbon Dioxide 18 mmol/L (22-30); Chloride 118 mmol/L (98-107); Glucose 74 mg/dL (74-99); Magnesium 1.9 mg/dL (1.6-2.3); Non-African American GFR(CKD) >90 (>60 ml/min/1.73 sqM); Sodium 141 mmol/L (137-145); Total Bilirubin 1.4 mg/dL (0.2-1.3); Total Protein 5.4 g/dL (6.3-8.2)
[2023-10-19 10:54] LABS: Potassium 3.7 mmol/L (3.5-5.1)
[2023-10-19 10:57] LABS: HCT 31.3 % (39.0-53.0); HGB 9.6 gm/dL (13.0-17.5); Hypochromasia Slight; MCH 30.7 pg (25.0-35.0); MCHC 30.8 g/dL (31.0-37.0); MCV 99.7 fL (80.0-100.0); Macrocytosis Slight; Mean Platelet Volume 9.7; RBC 3.14 m/uL (4.30-5.90); RDW 15.6 % (11.5-15.5); WBC 2.5 k/uL (3.8-10.6)
[2023-10-19 11:29] LABS: Platelet Count 44 k/uL (150-450)
[2023-10-19 13:08] LABS: Appearance,Urine Clear (Clear); Bilirubin,Urine Negative (Negative); Blood,Urine Negative (Negative); Color,Urine Colorless; Glucose,Urine (UA) Negative (Negative); Ketones,Urine Negative (Negative); Leukocyte Esterase,Urine Negative (Negative); Nitrite,Urine Negative (Negative); PH, Urine 5.5 (5.0-8.0); Protein,Urine Negative (Negative); Specific Gravity,Urine 1.003 (1.001-1.035); Urobilinogen,Urine <2.0 mg/dL (<2.0)
--- NOTE | 2023-10-19 15:33 | P.PN ---
Subjective Progress Note Date: 10/19/23 Hospital course: Patient is a very pleasant 63-year-old male with a past medical history of alcoholic liver cirrhosis with esophageal varices, COPD, hypertension, and hyperlipidemia. He presented to the emergency department overnight with a chief complaint of confusion. Patient had reportedly been constipated per family over the past few days and has a history of having elevated ammonia levels requiring hospitalizations. Patient underwent full evaluation in the emergency depart ment. An EKG was completed showing sinus tachycardia at 102 bpm with T-wave inversion in lateral leads. Chest x-ray was completed showing. Hilar opacities concerning for possible pneumonia. Labs were completed and reviewed. CBC showing bicytopenia with normocytic anemia with hemoglobin of 11.5 and thrombocytopenia with platelet count of 85. Coagulation profile showing elevated PT of 14.5 and INR of 1.4. BMP revealing hyperchloremia with chloride of 114, bicarb of 17, and anion gap of 10 with elevated BUN of 22. Initial lactic acid was 4.2. Liver profile showing total bili of 2.1, AST of 102, ALT of 42, alkaline phosphatase is 152, and elevated ammonia levels of 77. Influenza A, influenza B, and RSV were negative. Covid PCR was positive. Patient was admitted under our services at this time. Repeat lactate downtrending at 2.7. MELD score is 16 at time of admission. Patient admitted under our services to general medical unit with telemetry. Physical exam: Vital signs reviewed and stable. General: Nontoxic, no distress and appears stated age. Derm: Skin warm and dry, normal coloration for ethnicity. Head: Atraumatic, normocephalic and symmetric. Eyes: EOMs intact, no lid lag, and anicteric sclera Mouth: no lip lesions, mucus membranes moist Cardiovascular: regular rate and rhythm with normal S1S2, no murmur, positive posterior tibial pulses bilaterally, and cap refill < 2 seconds. Lungs: Respirations even, regular, and unlabored on room air. Lungs CTA bila terally, no rhonchi, no rales, no wheezing, and no accessory muscle usage. Abdominal: soft and distended, nontender to palpation, no guarding Ext: ROM intact. No gross muscle atrophy, no edema, no contractures Neuro: Speech clear, face symmetrical and CN II-XII grossly intact with no noted focal neuro deficits Psych: Alert and oriented to person, place, time, and situation. Appropriate and pleasant affect. Assessment and Plan of Care: Metabolic encephalopathy secondary to hyperammonemia resulting from advanced liver cirrhosis Alcoholic liver cirrhosis Hyperbilirubinemia, secondary to alcoholic liver cirrhosis Elevated liver enzymes, secondary to alcoholic liver cirrhosis Pancytopenia, secondary to advanced liver cirrhosis Lactic acidosis secondary to liver cirrhosis, improving History of esophageal varices Hypertension Hyperlipidemia COPD -Order placed for repeat morning CMP, CBC, and ammonia levels to monitor for improvement/resolution of hyperammonemia, close monitoring of pancytopenia, and continued close monitoring of liver function. -Neuro checks every 4 hours. -Fall precautions -Telemetry monitoring -Continue with lactulose 20 mg 3 times daily for treatment of hyperammonemia. -Fecal management system in place at this time secondary to persistent liquid stool -Patient to continue daily medication regimen with fenofibrate 54 mg daily, ferrous sulfate 325 mg Mondays/Wednesdays/Fridays, furosemide 40 mg daily, levothyroxine 125 g daily, Flomax 0.4 mg daily, thiamine 100 mg daily, and lisinopril 10 mg daily. Data reviewed: Vital signs reviewed. Blood pressure 121/54, heart rate 72, respiratory rate 17, temp 98.2F, and SpO2 of 97% on room air. CBC showing pancytopenia with WBC count of 30.1, hemoglobin 10.0, platelet count of 53. BMP revealing hyperchloremia with chloride of 117 and hypocarbia with bicarb of 17 and BUN of 24. Lactate 2.4 improving from previous 4.2. DVT prophylaxis: Lovenox Anticipated discharge date: Clinical course to determine Anticipated discharge place: Clinical course to determine Patient was seen independently by Nurse Pracitioner. This document was prepared using [employer] dictation software. Please allow for errors in stock hanger, while rare they do occur. Ramses Angelo NP rendered care for this patient independently, reviewed the findings and plan as documented in the note above. I did not physically speak with or examine the patient on this date. Objective - Vital Signs Vital signs: Vital Signs Temp 98.2 F 10/19/23 06:07 Pulse 72 10/19/23 06:37 Resp 17 10/19/23 06:37 BP 121/54 10/19/23 06:37 Pulse Ox 97 10/19/23 06:37 FiO2 Intake & Output 10/18/23 10/19/23 10/19/23 18:59 06:59 18:59 Weight 87.997 kg - Labs CBC & Chem 7: 10/20/23 06:06 10/20/23 06:06 Labs: Abnormal Lab Results - Last 24 Hours (Table) 10/18/23 10/18/23 10/18/23 Range/Units 21:31 21:31 21:31 WBC (3.8-10.6) k/uL RBC 3.63 L (4.30-5.90) m/uL Hgb 11.5 L (13.0-17.5) gm/dL Hct 35.0 L (39.0-53.0) % Plt Count 85 L (150-450) k/uL Lymphocytes # 0.3 L (1.0-4.8) k/uL PT (10.0-12.5) sec INR (<1.2) Chloride 114 H (98-107) mmol/L Carbon Dioxide 17 L (22-30) mmol/L BUN 22 H (9-20) mg/dL Glucose (74-99) mg/dL Plasma Lactic Acid Iker 4.2 H* (0.7-2.0) mmol/L Calcium (8.4-10.2) mg/dL Total Bilirubin 2.1 H (0.2-1.3) mg/dL AST 102 H (17-59) U/L Alkaline Phosphatase 152 H (38-126) U/L Ammonia 77 H (<30) umol/L Albumin 2.9 L (3.5-5.0) g/dL SARS-CoV-2 (PCR) (Not Detectd) 10/18/23 10/19/23 10/19/23 Range/Units 21:45 00:12 01:22 WBC (3.8-10.6) k/uL RBC (4.30-5.90) m/uL Hgb (13.0-17.5) gm/dL Hct (39.0-53.0) % Plt Count (150-450) k/uL Lymphocytes # (1.0-4.8) k/uL PT 14.5 H (10.0-12.5) sec INR 1.4 H (<1.2) Chloride (98-107) mmol/L Carbon Dioxide (22-30) mmol/L BUN (9-20) mg/dL Glucose (74-99) mg/dL Plasma Lactic Acid Iker 2.7 H* (0.7-2.0) mmol/L Calcium (8.4-10.2) mg/dL Total Bilirubin (0.2-1.3) mg/dL AST (17-59) U/L Alkaline Phosphatase (38-126) U/L Ammonia (<30) umol/L Albumin (3.5-5.0) g/dL SARS-CoV-2 (PCR) Detected A (Not Detectd) 10/19/23 10/19/23 10/19/23 Range/Units 04:21 04:26 04:26 WBC 3.1 L (3.8-10.6) k/uL RBC 3.06 L (4.30-5.90) m/uL Hgb 10.0 L D (13.0-17.5) gm/dL Hct 29.8 L (39.0-53.0) % Plt Count 53 L (150-450) k/uL Lymphocytes # (1.0-4.8) k/uL PT (10.0-12.5) sec INR (<1.2) Chloride 117 H (98-107) mmol/L Carbon Dioxide 17 L (22-30) mmol/L BUN 24 H (9-20) mg/dL Glucose 108 H (74-99) mg/dL Plasma Lactic Acid Iker 2.4 H* (0.7-2.0) mmol/L Calcium 7.8 L (8.4-10.2) mg/dL Total Bilirubin (0.2-1.3) mg/dL AST (17-59) U/L Alkaline Phosphatase (38-126) U/L Ammonia (<30) umol/L Albumin (3.5-5.0) g/dL SARS-CoV-2 (PCR) (Not Detectd)
[2023-10-19 16:30] LABS: Glucose,Whole Blood 90 mg/dL (70-110)
[2023-10-20] MEDS: LEVOTHYROXINE 125 MCG TAB PO SCH (06:21)
[2023-10-20 08:52] LABS: HCT 28.3 % (39.6-50.0); HGB 9.2 g/dL (13.0-17.0); Immature Platelet Fraction 4.1 % (1.1-6.1); MCHC 32.5 g/dL (32.0-37.0); MCV 95.3 FL (80.0-97.0); Mean Platelet Volume 12.4 FL (9.5-12.2); NRBC Per 100 WBC 0 X 10*3/uL (0.00-0.01); Platelet Count 50 X 10*3/uL (140-440); RBC 2.97 X 10*6/uL (4.40-5.60); RDW 15.7 % (11.5-14.5); WBC 2.24 X 10*3/uL (4.50-10.00)
[2023-10-20 08:55] LABS: ALT 36 U/L (10-49); AST 90 U/L (14-35); Albumin 2.2 g/dL (3.8-4.9); Albumin/Globulin Ratio 0.85 Ratio (1.60-3.17); Alkaline Phosphatase 114 U/L (41-126); BUN/Creat Ratio 19.33 Ratio (12.00-20.00); Blood Urea Nitrogen 17.4 mg/dL (9.0-27.0); Calcium 7.7 mg/dL (8.7-10.3); Carbon Dioxide 20.6 mmol/L (21.6-31.8); Chloride 114 mmol/L (96-109); Globulin 2.6 g/dL (1.6-3.3); Glucose 78 mg/dL (70-110); Magnesium 1.9 mg/dL (1.5-2.4); Potassium 3.6 mmol/L (3.5-5.5); Sodium 141 mmol/L (135-145); Total Bilirubin 0.8 mg/dL (0.3-1.2); Total Protein 4.8 g/dL (6.2-8.2)
[2023-10-20] MEDS: TAMSULOSIN 0.4 MG CAP.ER.24H PO SCH (09:45)
[2023-10-20] MEDS: THIAMINE 100 MG TAB PO SCH (09:45)
[2023-10-20] MEDS: MULTIVITAMINS, THERA 1 EACH TAB PO SCH (09:45)
[2023-10-20] MEDS: lisinopriL 10 MG TAB PO SCH (09:45)
[2023-10-20] MEDS: LACTULOSE 20 GM/30 ML CUP PO SCH ×3 (09:45→20:59)
[2023-10-20] MEDS: ENOXAPARIN 40 MG/0.4 ML SYRINGE SQ SCH (09:45)
[2023-10-20] MEDS: FUROSEMIDE 40 MG TAB PO SCH (09:45)
[2023-10-20] MEDS: FERROUS SULFATE 325 MG TAB PO SCH (09:45)
[2023-10-20] MEDS: NICOTINE 21MG/24HR PATCH TRANSDERM SCH (14:49)
[2023-10-20] MEDS: FENOFIBRATE 54 MG TAB PO SCH (14:49)
[2023-10-20] MEDS ORDERED: DEXTROSE 50% SYRINGE 50 ML IVP PRN ×2 (18:02)
--- NOTE | 2023-10-20 18:13 | P.PN ---
Subjective Progress Note Date: 10/20/23 Hospital course: Patient is a very pleasant 63-year-old male with a past medical history of alcoholic liver cirrhosis with esophageal varices, COPD, hypertension, and hyperlipidemia. He presented to the emergency department overnight with a chief complaint of confusion. Patient had reportedly been constipated per family over the past few days and has a history of having elevated ammonia levels requiring hospitalizations. Patient underwent full evaluation in the emergency depart ment. An EKG was completed showing sinus tachycardia at 102 bpm with T-wave inversion in lateral leads. Chest x-ray was completed showing. Hilar opacities concerning for possible pneumonia. Labs were completed and reviewed. CBC showing bicytopenia with normocytic anemia with hemoglobin of 11.5 and thrombocytopenia with platelet count of 85. Coagulation profile showing elevated PT of 14.5 and INR of 1.4. BMP revealing hyperchloremia with chloride of 114, bicarb of 17, and anion gap of 10 with elevated BUN of 22. Initial lactic acid was 4.2. Liver profile showing total bili of 2.1, AST of 102, ALT of 42, alkaline phosphatase is 152, and elevated ammonia levels of 77. Influenza A, influenza B, and RSV were negative. Covid PCR was positive. Patient was admitted under our services at this time. Repeat lactate downtrending at 2.7. MELD score is 16 at time of admission. Patient admitted under our services to general medical unit with telemetry. Physical exam: Patient seen and fully evaluated at bedside this morning. He was sitting up on the edge of bed and appeared to be doing well this morning. Mentation back to baseline patient is alert and oriented to person, place, time, and situation. Patient currently denies having any needs and complains however ammonia levels did elevate and patient being started on rifaximin in addition to lactulose. Discussed with patient need to decrease ammonia levels and will plan for discharge home likely tomorrow. Vital signs reviewed and stable. General: Nontoxic, no distress and appears stated age. Derm: Skin warm and dry, normal coloration for ethnicity. Head: Atraumatic, normocephalic and symmetric. Eyes: EOMs intact, no lid lag, and anicteric sclera Mouth: no lip lesions, mucus membranes moist Cardiovascular: regular rate and rhythm with normal S1S2, no murmur, positive posterior tibial pulses bilaterally, and cap refill < 2 seconds. Lungs: Respirations even, regular, and unlabored on room air. Lungs CTA kristina aterally, no rhonchi, no rales, no wheezing, and no accessory muscle usage. Abdominal: soft and distended, nontender to palpation, no guarding Ext: ROM intact. No gross muscle atrophy, no edema, no contractures Neuro: Speech clear, face symmetrical and CN II-XII grossly intact with no noted focal neuro deficits Psych: Alert and oriented to person, place, time, and situation. Appropriate and pleasant affect. Assessment and Plan of Care: Metabolic encephalopathy secondary to hyperammonemia resulting from advanced liver cirrhosis accompanied by current COVID pneumonia Covid pneumonia Alcoholic liver cirrhosis Hyperbilirubinemia, secondary to alcoholic liver cirrhosis Elevated liver enzymes, secondary to alcoholic liver cirrhosis Pancytopenia, secondary to advanced liver cirrhosis Lactic acidosis secondary to liver cirrhosis, improving History of esophageal varices Hypertension Hyperlipidemia COPD -Order placed for repeat morning CMP, CBC, and ammonia levels to monitor for improvement/resolution of hyperammonemia, close monitoring of pancytopenia, and continued close monitoring of liver function. -Continue Neuro checks every 4 hours. -Provide oxygenation as needed to maintain SpO2 equal to or greater than 90%. Patient remains on room air. -Symptomatic treatment -Fall precautions -Telemetry monitoring -Continue with lactulose 20 mg 3 times daily for treatment of hyperammonemia and secondary to further elevation of ammonia levels patient also started on rifaximin 550 mg twice daily. -Fecal management system was removed secondary to patient's improvement in mentation and inability to walk to and from bathroom at this time. -Patient to continue daily medication regimen with fenofibrate 54 mg daily, ferrous sulfate 325 mg Mondays/Wednesdays/Fridays, furosemide 40 mg daily, levothyroxine 125 g daily, Flomax 0.4 mg daily, thiamine 100 mg daily, and lisinopril 10 mg daily. Data reviewed: Vital signs reviewed. Blood pressure 131/60, heart rate 70, respiratory rate 16, temp 98.1F, and SpO2 of 96% on room air. CBC showing persistent but stable pancytopenia with WBC count of 2.24, hemoglobin 9.2, and platelet count of 50. BMP revealing hyperchloremia with chloride of 114 and hypocarbia with bicarb of 20.6. Ammonia level worsening this morning from previous 43 up to 59. DVT prophylaxis: Lovenox Anticipated discharge date: Clinical course to determine Anticipated discharge place: Clinical course to determine Patient was seen independently by Nurse Pracitioner. This document was prepared using [employer] dictation software. Please allow for errors in assistant teacher primary, while rare they do occur. Ramses Angelo NP rendered care for this patient independently, reviewed the findings and plan as documented in the note above. I did not physically speak with or examine the patient on this date. Objective - Vital Signs Vital signs: Vital Signs Temp 98.9 F 10/20/23 00:00 Pulse 74 10/20/23 00:00 Resp 18 10/20/23 00:00 BP 148/74 10/20/23 00:00 Pulse Ox 97 10/20/23 00:00 FiO2 Intake & Output 10/19/23 10/20/23 10/20/23 18:59 06:59 18:59 Weight 87.997 kg 92.8 kg Other: Voiding Method Toilet # Voids 3 # Bowel Movements 2 - Labs CBC & Chem 7: 10/20/23 06:06 10/20/23 06:06 Labs: Abnormal Lab Results - Last 24 Hours (Table) 10/19/23 10/19/23 10/19/23 Range/Units 10:25 10:25 10:25 WBC 2.5 L (3.8-10.6) k/uL RBC 3.14 L (4.30-5.90) m/uL Hgb 9.6 L (13.0-17.5) gm/dL Hct 31.3 L (39.0-53.0) % MCHC 30.8 L (31.0-37.0) g/dL RDW 15.6 H (11.5-15.5) % Plt Count 44 L (150-450) k/uL Chloride 118 H (98-107) mmol/L Carbon Dioxide 18 L (22-30) mmol/L BUN 22 H (9-20) mg/dL Calcium 7.4 L (8.4-10.2) mg/dL Total Bilirubin 1.4 H (0.2-1.3) mg/dL AST 98 H (17-59) U/L Ammonia 43 H (<30) umol/L Total Protein 5.4 L (6.3-8.2) g/dL Albumin 2.2 L (3.5-5.0) g/dL 10/20/23 Range/Units 06:06 WBC (3.8-10.6) k/uL RBC (4.30-5.90) m/uL Hgb (13.0-17.5) gm/dL Hct (39.0-53.0) % MCHC (31.0-37.0) g/dL RDW (11.5-15.5) % Plt Count (150-450) k/uL Chloride (98-107) mmol/L Carbon Dioxide (22-30) mmol/L BUN (9-20) mg/dL Calcium (8.4-10.2) mg/dL Total Bilirubin (0.2-1.3) mg/dL AST (17-59) U/L Ammonia 59 H (<30) umol/L Total Protein (6.3-8.2) g/dL Albumin (3.5-5.0) g/dL Microbiology - Last 24 Hours (Table) 10/18/23 21:31 Blood Culture - Preliminary Blood 10/18/23 21:31 Blood Culture - Preliminary Blood
[2023-10-20] MEDS: RIFAXIMIN 550 MG TABLET PO SCH (20:59)
[2023-10-21] MEDS: LEVOTHYROXINE 125 MCG TAB PO SCH (06:24)
[2023-10-21 08:40] LABS: HCT 30.8 % (39.0-53.0); HGB 10.2 gm/dL (13.0-17.5); MCH 32.3 pg (25.0-35.0); MCHC 33.1 g/dL (31.0-37.0); MCV 97.6 fL (80.0-100.0); Mean Platelet Volume 9.7; RBC 3.15 m/uL (4.30-5.90); RDW 15.3 % (11.5-15.5)
[2023-10-21 08:58] LABS: ALT 40 U/L (4-49); AST 99 U/L (17-59); African American GFR (CKD) >90 (>60 ml/min/1.73 sqM); Albumin/Globulin Ratio 0.6; Alkaline Phosphatase 110 U/L (38-126); Anion Gap 4 mmol/L; Blood Urea Nitrogen 15 mg/dL (9-20); Calcium 7.5 mg/dL (8.4-10.2); Carbon Dioxide 21 mmol/L (22-30); Chloride 111 mmol/L (98-107); Globulin 3.2 g/dL; Glucose 72 mg/dL (74-99); Magnesium 1.7 mg/dL (1.6-2.3); Non-African American GFR(CKD) >90 (>60 ml/min/1.73 sqM); Potassium 3.3 mmol/L (3.5-5.1); Sodium 136 mmol/L (137-145); Total Protein 5.2 g/dL (6.3-8.2)
[2023-10-21 09:05] LABS: WBC 1.2 k/uL (3.8-10.6)
[2023-10-21 09:57] LABS: Platelet Count 48 k/uL (150-450)
[2023-10-21] MEDS: MULTIVITAMINS, THERA 1 EACH TAB PO SCH (10:29)
[2023-10-21] MEDS: lisinopriL 10 MG TAB PO SCH (10:29)
[2023-10-21] MEDS: FUROSEMIDE 40 MG TAB PO SCH (10:29)
[2023-10-21] MEDS: TAMSULOSIN 0.4 MG CAP.ER.24H PO SCH (10:29)
[2023-10-21] MEDS: THIAMINE 100 MG TAB PO SCH (10:29)
[2023-10-21] MEDS: NICOTINE 21MG/24HR PATCH TRANSDERM SCH (10:30)
[2023-10-21] MEDS: LACTULOSE 20 GM/30 ML CUP PO SCH ×3 (10:30→20:18)
[2023-10-21] MEDS: FENOFIBRATE 54 MG TAB PO SCH (10:30)
[2023-10-21] MEDS: RIFAXIMIN 550 MG TABLET PO SCH ×2 (10:31→20:18)
[2023-10-21 11:18] LABS: Glucose,Whole Blood 122 mg/dL (70-110)
[2023-10-21] MEDS: ENOXAPARIN 40 MG/0.4 ML SYRINGE SQ SCH (11:23)
[2023-10-21] MEDS: MAGNESIUM SULFATE-D5W PMX 1 GM in DEXTROSE/WATER 1 100ML.BAG IVPB SCH ×2 (13:26→14:37)
[2023-10-21] MEDS ORDERED: POTASSIUM CHLORIDE ER 20 MEQ TAB.ER PO STA (16:02)
--- NOTE | 2023-10-21 16:12 | P.PN ---
Subjective Progress Note Date: 10/21/23 Hospital course: Patient is a very pleasant 63-year-old male with a past medical history of alcoholic liver cirrhosis with esophageal varices, COPD, hypertension, and hyperlipidemia. He presented to the emergency department overnight with a chief complaint of confusion. Patient had reportedly been constipated per family over the past few days and has a history of having elevated ammonia levels requiring hospitalizations. Patient underwent full evaluation in the emergency depart ment. An EKG was completed showing sinus tachycardia at 102 bpm with T-wave inversion in lateral leads. Chest x-ray was completed showing. Hilar opacities concerning for possible pneumonia. Labs were completed and reviewed. CBC showing bicytopenia with normocytic anemia with hemoglobin of 11.5 and thrombocytopenia with platelet count of 85. Coagulation profile showing elevated PT of 14.5 and INR of 1.4. BMP revealing hyperchloremia with chloride of 114, bicarb of 17, and anion gap of 10 with elevated BUN of 22. Initial lactic acid was 4.2. Liver profile showing total bili of 2.1, AST of 102, ALT of 42, alkaline phosphatase is 152, and elevated ammonia levels of 77. Influenza A, influenza B, and RSV were negative. Covid PCR was positive. Patient was admitted under our services at this time. Repeat lactate downtrending at 2.7. MELD score is 16 at time of admission. Patient admitted under our services to general medical unit with telemetry. The patient denied having any symptoms or complaints from Covid pneumonia at this time. He was treated for hyperammonemia with lactulose 20 g 3 times daily and started on rifaximin 550 mg twice daily. Physical exam: Patient seen and fully evaluated at bedside this morning. He was resting in bed this morning and currently denies having any complaints. Patient preparing to watch football game. Ammonia levels remain elevated at 42 patient remains on lactulose 20 mg twice daily and was started on rifaximin last night. Discussed with patient we will continue this current plan and likely discharge home tomorrow. Vital signs reviewed and stable. General: Nontoxic, no distress and appears stated age. Derm: Skin warm and dry, normal coloration for ethnicity. Head: Atraumatic, normocephalic and symmetric. Eyes: EOMs intact, no lid lag, and anicteric sclera Mouth: no lip lesions, mucus membranes moist Cardiovascular: regular rate and rhythm with normal S1S2, no murmur, positive posterior tibial pulses bilaterally, and cap refill < 2 seconds. Lungs: Respirations even, regular, and unlabored on room air. Lungs CTA bilaterally, no rhonchi, no rales, no wheezing, and no accessory muscle usage. Abdominal: soft and distended, nontender to palpation, no guarding Ext: ROM intact. No gross muscle atrophy, no edema, no contractures Neuro: Speech clear, face symmetrical and CN II-XII grossly intact with no noted focal neuro deficits Psych: Alert and oriented to person, place, time, and situation. Appropriate and pleasant affect. Assessment and Plan of Care: Metabolic encephalopathy secondary to hyperammonemia resulting from advanced liver cirrhosis accompanied by current COVID pneumonia Covid pneumonia Hyperammonemia Alcoholic liver cirrhosis Hyperbilirubinemia, secondary to alcoholic liver cirrhosis Elevated liver enzymes, secondary to alcoholic liver cirrhosis Pancytopenia, secondary to advanced liver cirrhosis Lactic acidosis secondary to liver cirrhosis, improving History of esophageal varices Hypertension Hyperlipidemia COPD -Order placed for repeat morning CMP, CBC, and ammonia levels to monitor for improvement/resolution of hyperammonemia, close monitoring of pancytopenia, and continued close monitoring of liver function. -Continue Neuro checks every 4 hours. -Provide oxygenation as needed to maintain SpO2 equal to or greater than 90%. Patient remains on room air. -Symptomatic treatment -Fall precautions -Telemetry monitoring -Continue with lactulose 20 mg 3 times daily and rifaximin 550 mg twice daily for treatment of hyperammonemia -Patient to continue daily medication regimen with fenofibrate 54 mg daily, ferrous sulfate 325 mg Mondays/Wednesdays/Fridays, furosemide 40 mg daily, levothyroxine 125 g daily, Flomax 0.4 mg daily, thiamine 100 mg daily, and lisinopril 10 mg daily. Hypokalemia Hypomagnesemia Hypoglycemia Potassium 3. [address] for K Dur 40 mEq by mouth 1 dose Magnesium 1.7 order magnesium sulfate 2 g IVPB 1 dose. Hypoglycemia with glucose of 72. Patient was provided with juice with repeat glucose of 122. Patient placed on every 6 hours glucose checks with glycemic protocol. Data reviewed: Vital signs reviewed. Blood pressure 136/63, heart rate 63, respiratory rate 19, temp 98.0F, and SpO2 99% on room air. CBC showing persistent pancytopenia with WBC count of 1.2, hemoglobin 10.2, and platelet count of 48. BMP showing hypokalemia with potassium of 3.3 and hypomagnesemia with magnesium of 1.7. Patient also with hypoglycemia this mo rning with glucose of 72 and provided with some juice with repeat glucose 122. DVT prophylaxis: Lovenox Anticipated discharge date: Clinical course to determine Anticipated discharge place: Clinical course to determine Patient was seen independently by Nurse Pracitioner. This document was prepared using [employer] dictation software. Please allow for errors in emergency medical dispatcher, while rare they do occur. Ramses Angelo NP rendered care for this patient independently, reviewed the find ings and plan as documented in the note above. I did not physically speak with or examine the patient on this date. Objective - Vital Signs Vital signs: Vital Signs Temp 98.0 F 10/21/23 08:10 Pulse 63 10/21/23 08:10 Resp 19 10/21/23 08:10 BP 136/63 10/21/23 08:10 Pulse Ox 99 10/21/23 08:10 FiO2 Intake & Output 10/20/23 10/21/23 10/21/23 18:59 06:59 18:59 Output Total 400 Balance -400 Output: Urine 400 Other: Voiding Method Toilet # Voids 1 # Bowel Movements 1 - Labs CBC & Chem 7: 10/22/23 08:09 10/22/23 08:09 Labs: Abnormal Lab Results - Last 24 Hours (Table) 10/20/23 10/20/23 Range/Units 06:06 06:06 WBC 2.24 L (4.50-10.00) X 10*3/uL RBC 2.97 L (4.40-5.60) X 10*6/uL Hgb 9.2 L (13.0-17.0) g/dL Hct 28.3 L (39.6-50.0) % RDW 15.7 H (11.5-14.5) % Plt Count 50 L (140-440) X 10*3/uL MPV 12.4 H (9.5-12.2) FL Chloride 114 H (96-109) mmol/L Carbon Dioxide 20.6 L (21.6-31.8) mmol/L Calcium 7.7 L (8.7-10.3) mg/dL AST 90 H (14-35) U/L Total Protein 4.8 L (6.2-8.2) g/dL Albumin 2.2 L (3.8-4.9) g/dL Albumin/Globulin Ratio 0.85 L (1.60-3.17) Ratio Microbiology - Last 24 Hours (Table) 10/18/23 21:31 Blood Culture - Preliminary Blood 10/18/23 21:31 Blood Culture - Preliminary Blood
[2023-10-21] MEDS ORDERED: MAGNESIUM SULFATE-D5W PMX 1 GM in DEXTROSE/WATER 1 100ML.BAG IVPB SCH (16:15)
[2023-10-21 16:39] LABS: Glucose,Whole Blood 130 mg/dL (70-110)
[2023-10-21 20:39] LABS: Glucose,Whole Blood 126 mg/dL (70-110)
[2023-10-22 00:10] LABS: Glucose,Whole Blood 88 mg/dL (70-110)
[2023-10-22] MEDS: LEVOTHYROXINE 125 MCG TAB PO SCH (06:10)
[2023-10-22 06:25] LABS: Glucose,Whole Blood 90 mg/dL (70-110)
[2023-10-22] MEDS: MULTIVITAMINS, THERA 1 EACH TAB PO SCH (08:58)
[2023-10-22] MEDS: LACTULOSE 20 GM/30 ML CUP PO SCH ×3 (08:58→21:35)
[2023-10-22] MEDS: NICOTINE 21MG/24HR PATCH TRANSDERM SCH (08:58)
[2023-10-22] MEDS: FUROSEMIDE 40 MG TAB PO SCH (08:58)
[2023-10-22] MEDS: ENOXAPARIN 40 MG/0.4 ML SYRINGE SQ SCH (08:58)
[2023-10-22] MEDS: THIAMINE 100 MG TAB PO SCH (08:58)
[2023-10-22] MEDS: TAMSULOSIN 0.4 MG CAP.ER.24H PO SCH (08:58)
[2023-10-22] MEDS: FENOFIBRATE 54 MG TAB PO SCH (08:58)
[2023-10-22] MEDS: lisinopriL 10 MG TAB PO SCH (08:58)
[2023-10-22] MEDS: RIFAXIMIN 550 MG TABLET PO SCH ×2 (08:58→21:35)
[2023-10-22] MEDS: FERROUS SULFATE 325 MG TAB PO SCH (09:28)
[2023-10-22 11:39] LABS: Glucose,Whole Blood 103 mg/dL (70-110)
[2023-10-22 12:07] LABS: HCT 33.2 % (39.6-50.0); HGB 10.9 g/dL (13.0-17.0); Immature Platelet Fraction 4.4 % (1.1-6.1); MCH 31.9 pg (27.0-32.0); MCHC 32.8 g/dL (32.0-37.0); MCV 97.1 FL (80.0-97.0); Mean Platelet Volume 12.7 FL (9.5-12.2); NRBC Per 100 WBC 0 X 10*3/uL (0.00-0.01); Platelet Count 66 X 10*3/uL (140-440); RBC 3.42 X 10*6/uL (4.40-5.60); RDW 15.5 % (11.5-14.5); WBC 2.03 X 10*3/uL (4.50-10.00)
[2023-10-22 12:10] LABS: ALT 45 U/L (10-49); AST 104 U/L (14-35); Albumin 2.5 g/dL (3.8-4.9); Albumin/Globulin Ratio 0.81 Ratio (1.60-3.17); Alkaline Phosphatase 120 U/L (41-126); Blood Urea Nitrogen 12.4 mg/dL (9.0-27.0); Calcium 7.9 mg/dL (8.7-10.3); Carbon Dioxide 20.2 mmol/L (21.6-31.8); Chloride 112 mmol/L (96-109); Globulin 3.1 g/dL (1.6-3.3); Glucose 97 mg/dL (70-110); Magnesium 1.7 mg/dL (1.5-2.4); Potassium 4.4 mmol/L (3.5-5.5); Sodium 137 mmol/L (135-145); Total Bilirubin 0.9 mg/dL (0.3-1.2); Total Protein 5.6 g/dL (6.2-8.2)
[2023-10-22] MEDS: MAGNESIUM SULFATE-D5W PMX 1 GM in DEXTROSE/WATER 1 100ML.BAG IVPB SCH ×2 (16:02→18:04)
[2023-10-22 16:35] LABS: Glucose,Whole Blood 117 mg/dL (70-110)
--- NOTE | 2023-10-22 18:54 | P.PN ---
Subjective Progress Note Date: 10/22/23 Hospital course: Patient is a very pleasant 63-year-old male with a past medical history of alcoholic liver cirrhosis with esophageal varices, COPD, hypertension, and hyperlipidemia. He presented to the emergency department overnight with a chief complaint of confusion. Patient had reportedly been constipated per family over the past few days and has a history of having elevated ammonia levels requiring hospitalizations. Patient underwent full evaluation in the emergency depart ment. An EKG was completed showing sinus tachycardia at 102 bpm with T-wave inversion in lateral leads. Chest x-ray was completed showing. Hilar opacities concerning for possible pneumonia. Labs were completed and reviewed. CBC showing bicytopenia with normocytic anemia with hemoglobin of 11.5 and thrombocytopenia with platelet count of 85. Coagulation profile showing elevated PT of 14.5 and INR of 1.4. BMP revealing hyperchloremia with chloride of 114, bicarb of 17, and anion gap of 10 with elevated BUN of 22. Initial lactic acid was 4.2. Liver profile showing total bili of 2.1, AST of 102, ALT of 42, alkaline phosphatase is 152, and elevated ammonia levels of 77. Influenza A, influenza B, and RSV were negative. Covid PCR was positive. Patient was admitted under our services at this time. Repeat lactate downtrending at 2.7. MELD score is 16 at time of admission. Patient admitted under our services to general medical unit with telemetry. The patient denied having any symptoms or complaints from Covid pneumonia at this time. He was treated for hyperammonemia with lactulose 20 g 3 times daily and started on rifaximin 550 mg twice daily. Physical exam: Vital signs reviewed and stable. General: Nontoxic, no distress and appears stated age. Derm: Skin warm and dry, normal coloration for ethnicity. Head: Atraumatic, normocephalic and symmetric. Eyes: EOMs intact, no lid lag, and anicteric sclera Mouth: no lip lesions, mucus membranes moist Cardiovascular: regular rate and rhythm with normal S1S2, no murmur, positive posterior tibial pulses bilaterally, and cap refill < 2 seconds. Lungs: Respirations even, regular, and unlabored on room air. Lungs CTA b ilaterally, no rhonchi, no rales, no wheezing, and no accessory muscle usage. Abdominal: soft and distended, nontender to palpation, no guarding Ext: ROM intact. No gross muscle atrophy, no edema, no contractures Neuro: Speech clear, face symmetrical and CN II-XII grossly intact with no noted focal neuro deficits Psych: Alert and oriented to person, place, time, and situation. Appropriate and pleasant affect. Assessment and Plan of Care: Metabolic encephalopathy secondary to hyperammonemia resulting from advanced liver cirrhosis accompanied by current COVID pneumonia Covid pneumonia Hyperammonemia Alcoholic liver cirrhosis Hyperbilirubinemia, secondary to alcoholic liver cirrhosis Elevated liver enzymes, secondary to alcoholic liver cirrhosis Pancytopenia, secondary to advanced liver cirrhosis Lactic acidosis secondary to liver cirrhosis, improving History of esophageal varices Hypertension Hyperlipidemia COPD -Order placed for repeat morning CMP, CBC, and ammonia levels to monitor for improvement/resolution of hyperammonemia, close monitoring of pancytopenia, and continued close monitoring of liver function. -Continue Neuro checks every 4 hours. -Provide oxygenation as needed to maintain SpO2 equal to or greater than 90%. Patient remains on room air. -Symptomatic treatment -Fall precautions -Telemetry monitoring -Lactulose increased to 30 mg 3 times daily along with continuation of rifaximin 550 mg twice daily for treatment of hyperammonemia as levels increase this morn ing up to 68 again. -Patient to continue daily medication regimen with fenofibrate 54 mg daily, ferr ous sulfate 325 mg Mondays/Wednesdays/Fridays, furosemide 40 mg daily, levothyroxine 125 g daily, Flomax 0.4 mg daily, thiamine 100 mg daily, and lisinopril 10 mg daily. Hypomagnesemia Hypoglycemia Magnesium 1.7 order magnesium sulfate 2 g IVPB 1 dose. Patient to continue glycemic protocol with [id number] glucose checks every 6 hours. Hypokalemia, resolved Data reviewed: Vital signs reviewed. Blood pressure 118/65, heart rate 67, respiratory rate 20, temp 98.2F, SpO2 99% on room air. CBC showing persistent pancytopenia with WBC count of 2.03, hemoglobin 10.9, and platelet count of 66. BMP showing mild hyperchloremia with chloride of 112 and bicarb of 20.2. Magnesium 1.7. Liver profile showing elevated AST of 104. Ammonia level elevating this morning to 68. DVT prophylaxis: Lovenox Anticipated discharge date: Clinical course to determine Anticipated discharge place: Clinical course to determine Patient was seen independently by Nurse Pracitioner. This document was prepared using [employer] dictation software. Please allow for errors in delivery person, while rare they do occur. Ramses Angelo, INSIDE SALES ACCOUNT MANAGER rendered care for this patient independently, reviewed the findings and plan as documented in the note above. I did not physically speak with or examine the patient on this date. Objective - Vital Signs Vital signs: Vital Signs Temp 98.2 F 10/22/23 07:30 Pulse 67 10/22/23 07:30 Resp 20 10/22/23 07:30 BP 118/65 10/22/23 07:30 Pulse Ox 99 10/22/23 07:30 FiO2 Intake & Output 10/21/23 10/22/23 10/22/23 18:59 06:59 18:59 Weight 90.6 kg Other: Voiding Method Toilet # Voids 1 # Bowel Movements 4 1 - Labs CBC & Chem 7: 10/24/23 06:56 10/24/23 06:56 Labs: Abnormal Lab Results - Last 24 Hours (Table) 10/21/23 10/21/23 10/21/23 Range/Units 08:05 11:16 16:37 Plt Count 48 L (150-450) k/uL POC Glucose (mg/dL) 122 H 130 H (70-110) mg/dL Ammonia (<30) umol/L 10/21/23 10/22/23 Range/Units 20:38 08:09 Plt Count (150-450) k/uL POC Glucose (mg/dL) 126 H (70-110) mg/dL Ammonia 68 H (<30) umol/L Microbiology - Last 24 Hours (Table) 10/18/23 21:31 Blood Culture - Preliminary Blood 10/18/23 21:31 Blood Culture - Preliminary Blood
[2023-10-22 23:05] LABS: Glucose,Whole Blood 108 mg/dL (70-110)
[2023-10-23 05:38] LABS: Glucose,Whole Blood 104 mg/dL (70-110)
[2023-10-23] MEDS: LEVOTHYROXINE 125 MCG TAB PO SCH (06:01)
[2023-10-23 09:49] LABS: ALT 40 U/L (10-49); AST 85 U/L (14-35); Albumin 2.3 g/dL (3.8-4.9); Albumin/Globulin Ratio 0.79 Ratio (1.60-3.17); Alkaline Phosphatase 114 U/L (41-126); BUN/Creat Ratio 13.12 Ratio (12.00-20.00); Blood Urea Nitrogen 10.5 mg/dL (9.0-27.0); Chloride 112 mmol/L (96-109); Globulin 2.9 g/dL (1.6-3.3); Glucose 76 mg/dL (70-110); Potassium 4.1 mmol/L (3.5-5.5); Sodium 138 mmol/L (135-145); Total Bilirubin 0.8 mg/dL (0.3-1.2); Total Protein 5.2 g/dL (6.2-8.2)
[2023-10-23 09:53] LABS: HCT 33.1 % (39.6-50.0); HGB 10.7 g/dL (13.0-17.0); Immature Platelet Fraction 5.3 % (1.1-6.1); MCH 31.2 pg (27.0-32.0); MCHC 32.3 g/dL (32.0-37.0); MCV 96.5 FL (80.0-97.0); Mean Platelet Volume 11.8 FL (9.5-12.2); NRBC Per 100 WBC 0 X 10*3/uL (0.00-0.01); Platelet Count 55 X 10*3/uL (140-440); RBC 3.43 X 10*6/uL (4.40-5.60); RDW 15.3 % (11.5-14.5); WBC 1.75 X 10*3/uL (4.50-10.00)
[2023-10-23] MEDS: THIAMINE 100 MG TAB PO SCH (10:12)
[2023-10-23] MEDS: LACTULOSE 20 GM/30 ML CUP PO SCH ×3 (10:12→21:24)
[2023-10-23] MEDS: FENOFIBRATE 54 MG TAB PO SCH (10:12)
[2023-10-23] MEDS: TAMSULOSIN 0.4 MG CAP.ER.24H PO SCH (10:12)
[2023-10-23] MEDS: ENOXAPARIN 40 MG/0.4 ML SYRINGE SQ SCH (10:12)
[2023-10-23] MEDS: FUROSEMIDE 40 MG TAB PO SCH (10:12)
[2023-10-23] MEDS: lisinopriL 10 MG TAB PO SCH (10:13)
[2023-10-23] MEDS: RIFAXIMIN 550 MG TABLET PO SCH ×2 (10:13→21:25)
[2023-10-23] MEDS: MULTIVITAMINS, THERA 1 EACH TAB PO SCH (10:13)
[2023-10-23] MEDS: NICOTINE 21MG/24HR PATCH TRANSDERM SCH (10:13)
[2023-10-23 11:35] LABS: Glucose,Whole Blood 138 mg/dL (70-110)
[2023-10-23 16:42] LABS: Glucose,Whole Blood 105 mg/dL (70-110)
--- NOTE | 2023-10-23 16:45 | P.PN ---
Subjective Progress Note Date: 10/23/23 Hospital course: Patient is a very pleasant 63-year-old male with a past medical history of alcoholic liver cirrhosis with esophageal varices, COPD, hypertension, and hyperlipidemia. He presented to the emergency department overnight with a chief complaint of confusion. Patient had reportedly been constipated per family over the past few days and has a history of having elevated ammonia levels requiring hospitalizations. Patient underwent full evaluation in the emergency depart ment. An EKG was completed showing sinus tachycardia at 102 bpm with T-wave inversion in lateral leads. Chest x-ray was completed showing. Hilar opacities concerning for possible pneumonia. Labs were completed and reviewed. CBC showing bicytopenia with normocytic anemia with hemoglobin of 11.5 and thrombocytopenia with platelet count of 85. Coagulation profile showing elevated PT of 14.5 and INR of 1.4. BMP revealing hyperchloremia with chloride of 114, bicarb of 17, and anion gap of 10 with elevated BUN of 22. Initial lactic acid was 4.2. Liver profile showing total bili of 2.1, AST of 102, ALT of 42, alkaline phosphatase is 152, and elevated ammonia levels of 77. Influenza A, influenza B, and RSV were negative. Covid PCR was positive. Patient was admitted under our services at this time. Repeat lactate downtrending at 2.7. MELD score is 16 at time of admission. Patient admitted under our services to general medical unit with telemetry. The patient denied having any symptoms or complaints from Covid pneumonia at this time. He was treated for hyperammonemia with lactulose 20 g 3 times daily and started on rifaximin 550 mg twice daily. Ammonia levels remained elevated lactulose was increased to 30 g 3 times a day along with continuation of rifaximin 550 mg twice daily. Anticipate discharge within the next 24 hours. Physical exam: Vital signs reviewed and stable. General: Nontoxic, no distress and appears stated age. Derm: Skin warm and dry, normal coloration for ethnicity. Head: Atraumatic, normocephalic and symmetric. Eyes: EOMs intact, no lid lag, and anicteric sclera Mouth: no lip lesions, mucus membranes moist Cardiovascular: regular rate and rhythm with normal S1S2, no murmur, positive posterior tibial pulses bilaterally, and cap refill < 2 seconds. Lungs: Respirations even, regular, and unlabored on room air. Lungs CTA bilaterally, no rhonchi, no rales, no wheezing, and no accessory muscle usage. Abdominal: soft and distended, nontender to palpation, no guarding Ext: ROM intact. No gross muscle atrophy, no edema, no contractures Neuro: Speech clear, face symmetrical and CN II-XII grossly intact with no noted focal neuro deficits Psych: Alert and oriented to person, place, time, and situation. Appropriate and pleasant affect. Assessment and Plan of Care: Metabolic encephalopathy secondary to hyperammonemia resulting from advanced liver cirrhosis accompanied by current COVID pneumonia Covid pneumonia Hyperammonemia Alcoholic liver cirrhosis Hyperbilirubinemia, secondary to alcoholic liver cirrhosis Elevated liver enzymes, secondary to alcoholic liver cirrhosis Pancytopenia, secondary to advanced liver cirrhosis Lactic acidosis secondary to liver cirrhosis, improving History of esophageal varices Hypertension Hyperlipidemia COPD -Order placed for repeat morning CMP, CBC, and ammonia levels to monitor for improvement/resolution of hyperammonemia, close monitoring of pancytopenia, and continued close monitoring of liver function. -Continue Neuro checks every 4 hours. -Provide oxygenation as needed to maintain SpO2 equal to or greater than 90%. Patient remains on room air. -Symptomatic treatment -Fall precautions -Telemetry monitoring -Continue Lactulose 30 mg 3 times daily along with rifaximin 550 mg twice daily for treatment of hyperammonemia -Patient to continue daily medication regimen with fenofibrate 54 mg daily, ferrous sulfate 325 mg Mondays/Wednesdays/Fridays, furosemide 40 mg daily, levothyroxine 125 g daily, Flomax 0.4 mg daily, thiamine 100 mg daily, and lisinopril 10 mg daily. Hypomagnesemia Hypoglycemia Magnesium 1.7 order magnesium sulfate 2 g IVPB 1 dose. Patient to continue glycemic protocol with sftwz-ow-boan glucose checks every 6 hours. Hypokalemia, resolved Data reviewed: Vital signs reviewed. Blood pressure 133/61, heart rate 69, respiratory rate 16, temp 98.4F, SpO2 of 97% on room air. CBC showing persistent pancytopenia with WBC count of 1.75, hemoglobin 10.7, platelet count of 55. BMP showing mild hyperchloremia with chloride of 112 otherwise normal findings. Glucose on the lower side 76 this morning. Liver profile showing elevated AST of 85. Ammonia levels remain elevated at 53. DVT prophylaxis: Lovenox Anticipated discharge date: Likely within the next [address]: Home Patient was seen independently by Nurse Pracitioner. This document was prepared using [employer] dictation software. Please allow for errors in potash flaker, while rare they do occur. Ramses Angelo, FLYER MAKER rendered care for this patient independently, reviewed the findings and plan as documented in the note above. I did not physically speak with or examine the patient on this date. Objective - Vital Signs Vital signs: Vital Signs Temp 98.4 F 10/23/23 07:48 Pulse 69 10/23/23 07:48 Resp 16 10/23/23 07:48 BP 133/61 10/23/23 07:48 Pulse Ox 97 10/23/23 07:48 FiO2 Intake & Output 10/22/23 10/23/23 10/23/23 18:59 06:59 18:59 Intake Total 900 Balance 900 Intake: Oral 900 Other: Voiding Method Toilet Toilet # Voids 3 0 # Bowel Movements 3 - Labs CBC & Chem 7: 10/24/23 06:56 10/24/23 06:56 Labs: Abnormal Lab Results - Last 24 Hours (Table) 10/22/23 10/22/23 10/22/23 Range/Units 08:09 08:09 08:09 WBC 2.03 L (4.50-10.00) X 10*3/uL RBC 3.42 L (4.40-5.60) X 10*6/uL Hgb 10.9 L (13.0-17.0) g/dL Hct 33.2 L (39.6-50.0) % MCV 97.1 H (80.0-97.0) FL RDW 15.5 H (11.5-14.5) % Plt Count 66 L (140-440) X 10*3/uL MPV 12.7 H (9.5-12.2) FL Chloride 112 H (96-109) mmol/L Carbon Dioxide 20.2 L (21.6-31.8) mmol/L POC Glucose (mg/dL) (70-110) mg/dL Calcium 7.9 L (8.7-10.3) mg/dL AST 104 H (14-35) U/L Ammonia 68 H (<30) umol/L Total Protein 5.6 L (6.2-8.2) g/dL Albumin 2.5 L (3.8-4.9) g/dL Albumin/Globulin Ratio 0.81 L (1.60-3.17) Ratio 10/22/23 10/23/23 Range/Units 16:33 07:14 WBC (4.50-10.00) X 10*3/uL RBC (4.40-5.60) X 10*6/uL Hgb (13.0-17.0) g/dL Hct (39.6-50.0) % MCV (80.0-97.0) FL RDW (11.5-14.5) % Plt Count (140-440) X 10*3/uL MPV (9.5-12.2) FL Chloride (96-109) mmol/L Carbon Dioxide (21.6-31.8) mmol/L POC Glucose (mg/dL) 117 H (70-110) mg/dL Calcium (8.7-10.3) mg/dL AST (14-35) U/L Ammonia 53 H (<30) umol/L Total Protein (6.2-8.2) g/dL Albumin (3.8-4.9) g/dL Albumin/Globulin Ratio (1.60-3.17) Ratio Microbiology - Last 24 Hours (Table) 10/18/23 21:31 Blood Culture - Preliminary Blood 10/18/23 21:31 Blood Culture - Preliminary Blood
[2023-10-23 20:02] LABS: Glucose,Whole Blood 103 mg/dL (70-110)
[2023-10-23 23:59] LABS: Glucose,Whole Blood 120 mg/dL (70-110)
[2023-10-24 05:09] LABS: Glucose,Whole Blood 107 mg/dL (70-110)
[2023-10-24] MEDS: LEVOTHYROXINE 125 MCG TAB PO SCH (06:07)
[2023-10-24 07:26] LABS: HCT 30.3 % (39.0-53.0); HGB 10.1 gm/dL (13.0-17.5); MCHC 33.3 g/dL (31.0-37.0); Mean Platelet Volume 9.7; RBC 3.15 m/uL (4.30-5.90); RDW 15.1 % (11.5-15.5); WBC 1.5 k/uL (3.8-10.6)
[2023-10-24 07:29] LABS: Platelet Count 45 k/uL (150-450)
[2023-10-24 07:55] LABS: ALT 36 U/L (4-49); AST 80 U/L (17-59); African American GFR (CKD) >90 (>60 ml/min/1.73 sqM); Albumin 1.9 g/dL (3.5-5.0); Albumin/Globulin Ratio 0.6; Alkaline Phosphatase 104 U/L (38-126); Anion Gap 2 mmol/L; Blood Urea Nitrogen 12 mg/dL (9-20); Calcium 7.6 mg/dL (8.4-10.2); Carbon Dioxide 24 mmol/L (22-30); Chloride 111 mmol/L (98-107); Globulin 3.1 g/dL; Glucose 90 mg/dL (74-99); Magnesium 1.7 mg/dL (1.6-2.3); Non-African American GFR(CKD) >90 (>60 ml/min/1.73 sqM); Potassium 3.8 mmol/L (3.5-5.1); Sodium 137 mmol/L (137-145); Total Bilirubin 0.9 mg/dL (0.2-1.3)
[2023-10-24] MEDS: LACTULOSE 20 GM/30 ML CUP PO SCH ×3 (08:31→21:18)
[2023-10-24] MEDS: NICOTINE 21MG/24HR PATCH TRANSDERM SCH (08:31)
[2023-10-24] MEDS: THIAMINE 100 MG TAB PO SCH (08:32)
[2023-10-24] MEDS: FENOFIBRATE 54 MG TAB PO SCH (08:32)
[2023-10-24] MEDS: lisinopriL 10 MG TAB PO SCH (08:32)
[2023-10-24] MEDS: MULTIVITAMINS, THERA 1 EACH TAB PO SCH (08:32)
[2023-10-24] MEDS: TAMSULOSIN 0.4 MG CAP.ER.24H PO SCH (08:32)
[2023-10-24] MEDS: RIFAXIMIN 550 MG TABLET PO SCH ×2 (08:32→21:18)
[2023-10-24] MEDS: FUROSEMIDE 40 MG TAB PO SCH (08:32)
[2023-10-24] MEDS ORDERED: MAGNESIUM OXIDE 400 MG TAB PO STA (09:12)
[2023-10-24] MEDS: ENOXAPARIN 40 MG/0.4 ML SYRINGE SQ SCH (12:54)
[2023-10-24 14:10] LABS: Glucose,Whole Blood 105 mg/dL (70-110)
--- NOTE | 2023-10-24 16:17 | P.PN ---
Subjective Progress Note Date: 10/24/23 Hospital course: Patient is a very pleasant 63-year-old male with a past medical history of alcoholic liver cirrhosis with esophageal varices, COPD, hypertension, and hyperlipidemia. He presented to the emergency department overnight with a chief complaint of confusion. Patient had reportedly been constipated per family over the past few days and has a history of having elevated ammonia levels requiring hospitalizations. Patient underwent full evaluation in the emergency depart ment. An EKG was completed showing sinus tachycardia at 102 bpm with T-wave inversion in lateral leads. Chest x-ray was completed showing. Hilar opacities concerning for possible pneumonia. Labs were completed and reviewed. CBC showing bicytopenia with normocytic anemia with hemoglobin of 11.5 and thrombocytopenia with platelet count of 85. Coagulation profile showing elevated PT of 14.5 and INR of 1.4. BMP revealing hyperchloremia with chloride of 114, bicarb of 17, and anion gap of 10 with elevated BUN of 22. Initial lactic acid was 4.2. Liver profile showing total bili of 2.1, AST of 102, ALT of 42, alkaline phosphatase is 152, and elevated ammonia levels of 77. Influenza A, influenza B, and RSV were negative. Covid PCR was positive. Patient was admitted under our services at this time. Repeat lactate downtrending at 2.7. MELD score is 16 at time of admission. Patient admitted under our services to general medical unit with telemetry. The patient denied having any symptoms or complaints from Covid pneumonia at this time. He was treated for hyperammonemia with lactulose 20 g 3 times daily and started on rifaximin 550 mg twice daily. Ammonia levels remained elevated lactulose was increased to 30 g 3 times a day along with continuation of rifaximin 550 mg twice daily. Anticipate discharge within the next 24 hours. Physical exam: Vital signs reviewed and stable. General: Nontoxic, no distress and appears stated age. Derm: Skin warm and dry, normal coloration for ethnicity. Head: Atraumatic, normocephalic and symmetric. Eyes: EOMs intact, no lid lag, and anicteric sclera Mouth: no lip lesions, mucus membranes moist Cardiovascular: regular rate and rhythm with normal S1S2, no murmur, positive posterior tibial pulses bilaterally, and cap refill < 2 seconds. Lungs: Respirations even, regular, and unlabored on room air. Lungs CTA bilaterally, no rhonchi, no rales, no wheezing, and no accessory muscle usage. Abdominal: soft and distended, nontender to palpation, no guarding Ext: ROM intact. No gross muscle atrophy, no edema, no contractures Neuro: Speech clear, face symmetrical and CN II-XII grossly intact with no noted focal neuro deficits Psych: Alert and oriented to person, place, time, and situation. Appropriate and pleasant affect, however patient did appear slightly sleepy and withdrawn. Assessment and Plan of Care: Metabolic encephalopathy secondary to hyperammonemia resulting from advanced liver cirrhosis accompanied by current COVID pneumonia Covid pneumonia Hyperammonemia Alcoholic liver cirrhosis Hyperbilirubinemia, secondary to alcoholic liver cirrhosis Elevated liver enzymes, secondary to alcoholic liver cirrhosis Pancytopenia, secondary to advanced liver cirrhosis Lactic acidosis secondary to liver cirrhosis, improving History of esophageal varices Hypertension Hyperlipidemia COPD -Order placed for repeat morning CMP, CBC, and ammonia levels to monitor for improvement/resolution of hyperammonemia, close monitoring of pancytopenia, and continued close monitoring of liver function. -Continue Neuro checks every 4 hours. -Provide oxygenation as needed to maintain SpO2 equal to or greater than 90%. Patient remains on room air. -Symptomatic treatment -Fall precautions -Telemetry monitoring -Continue Lactulose 30 mg 3 times daily along with rifaximin 550 mg twice daily for treatment of hyperammonemia -Patient to continue daily medication regimen with fenofibrate 54 mg daily, ferrous sulfate 325 mg Mondays/Wednesdays/Fridays, furosemide 40 mg daily, levothyroxine 125 g daily, Flomax 0.4 mg daily, thiamine 100 mg daily, and lisinopril 10 mg daily. Hypomagnesemia Hypoglycemia Magnesium 1.7 order placed for magnesium oxide 400 mg by mouth 1 dose. Patient to continue glycemic protocol with agyjz-[id number] glucose checks every 6 hours. No further episodes of hypoglycemia. Hypokalemia, resolved Data reviewed: Vital signs reviewed. Blood pressure 134/64, heart rate 60, respiratory rate 19, temp 98.4F, SpO2 97% on room air. CBC showing persistent pancytopenia with WBC count of 1.5, hemoglobin 10.1, platelet count of 45. BMP showing hyperchloremia with chloride of 111. Magnesium was low at 1.7 order Mag-Ox 400 mg 1 dose. Liver profile showing elevated AST of 80. Albumin 1.9. Ammonia levels elevating to 77. Ammonia levels elevating back up to 77 this morning. Patient does not seem confused but definitely seems more sleepy and reports feeling "out of it.". We will continue to monitor for an additional 24 hours and if no confusion and patient's mentation is stable we will plan for discharge tomorrow morning. DVT prophylaxis: Lovenox Anticipated discharge date: Tomorrow morning Anticipated discharge place: Home Patient was seen independently by Nurse Pracitioner. This document was prepared using [employer] dictation software. Please allow for errors in headlight assembler, while rare they do occur. Ramses Angelo NP rendered care for this patient independently, reviewed the findings and plan as documented in the note above. I did not physically speak with or examine the patient on this date. Objective - Vital Signs Vital signs: Vital Signs Temp 98.4 F 10/24/23 08:05 Pulse 60 10/24/23 08:05 Resp 19 10/24/23 08:05 BP 134/64 10/24/23 08:05 Pulse Ox 97 10/24/23 08:05 FiO2 Intake & Output 10/23/23 10/24/23 10/24/23 18:59 06:59 18:59 Intake Total 200 Balance 200 Weight 90.8 kg Intake: Oral 200 Other: Voiding Method Toilet Toilet # Voids 2 # Bowel Movements 1 - Labs CBC & Chem 7: 10/24/23 06:56 10/24/23 06:56 Labs: Abnormal Lab Results - Last 24 Hours (Table) 10/23/23 10/23/23 10/23/23 Range/Units 07:14 07:14 11:28 WBC 1.75 L (4.50-10.00) X 10*3/uL RBC 3.43 L (4.40-5.60) X 10*6/uL Hgb 10.7 L (13.0-17.0) g/dL Hct 33.1 L (39.6-50.0) % RDW 15.3 H (11.5-14.5) % Plt Count 55 L (140-440) X 10*3/uL Chloride 112 H (96-109) mmol/L Carbon Dioxide 21.0 L (21.6-31.8) mmol/L POC Glucose (mg/dL) 138 H (70-110) mg/dL Calcium 8.0 L (8.7-10.3) mg/dL AST 85 H (14-35) U/L Ammonia (<30) umol/L Total Protein 5.2 L (6.2-8.2) g/dL Albumin 2.3 L (3.8-4.9) g/dL Albumin/Globulin Ratio 0.79 L (1.60-3.17) Ratio 10/23/23 10/24/23 10/24/23 Range/Units 23:57 06:56 06:56 WBC 1.5 L (4.50-10.00) X 10*3/uL RBC 3.15 L (4.40-5.60) X 10*6/uL Hgb 10.1 L (13.0-17.0) g/dL Hct 30.3 L (39.6-50.0) % RDW (11.5-14.5) % Plt Count 45 L (140-440) X 10*3/uL Chloride 111 H (96-109) mmol/L Carbon Dioxide (21.6-31.8) mmol/L POC Glucose (mg/dL) 120 H (70-110) mg/dL Calcium 7.6 L (8.7-10.3) mg/dL AST 80 H (14-35) U/L Ammonia (<30) umol/L Total Protein 5.0 L (6.2-8.2) g/dL Albumin 1.9 L (3.8-4.9) g/dL Albumin/Globulin Ratio (1.60-3.17) Ratio 10/24/23 Range/Units 06:56 WBC (4.50-10.00) X 10*3/uL RBC (4.40-5.60) X 10*6/uL Hgb (13.0-17.0) g/dL Hct (39.6-50.0) % RDW (11.5-14.5) % Plt Count (140-440) X 10*3/uL Chloride (96-109) mmol/L Carbon Dioxide (21.6-31.8) mmol/L POC Glucose (mg/dL) (70-110) mg/dL Calcium (8.7-10.3) mg/dL AST (14-35) U/L Ammonia 77 H (<30) umol/L Total Protein (6.2-8.2) g/dL Albumin (3.8-4.9) g/dL Albumin/Globulin Ratio (1.60-3.17) Ratio Microbiology - Last 24 Hours (Table) 10/18/23 21:31 Blood Culture - Final Blood 10/18/23 21:31 Blood Culture - Final Blood
[2023-10-24 16:58] LABS: Glucose,Whole Blood 102 mg/dL (70-110)
[2023-10-24 19:48] LABS: Glucose,Whole Blood 128 mg/dL (70-110)
[2023-10-25 00:01] LABS: Glucose,Whole Blood 104 mg/dL (70-110)
[2023-10-25 06:09] LABS: Glucose,Whole Blood 86 mg/dL (70-110)
[2023-10-25] MEDS: LEVOTHYROXINE 125 MCG TAB PO SCH (06:30)
[2023-10-25 07:56] VITALS: BP 190/60; PULSE 78; RESP 20; TEMP 97.4
[2023-10-25] MEDS: ENOXAPARIN 40 MG/0.4 ML SYRINGE SQ SCH (08:15)
[2023-10-25] MEDS: FUROSEMIDE 40 MG TAB PO SCH (08:22)
[2023-10-25] MEDS: TAMSULOSIN 0.4 MG CAP.ER.24H PO SCH (08:22)
[2023-10-25] MEDS: THIAMINE 100 MG TAB PO SCH (08:23)
[2023-10-25] MEDS: FENOFIBRATE 54 MG TAB PO SCH (08:23)
[2023-10-25] MEDS: LACTULOSE 20 GM/30 ML CUP PO SCH (08:23)
[2023-10-25] MEDS: MULTIVITAMINS, THERA 1 EACH TAB PO SCH (08:23)
[2023-10-25] MEDS: lisinopriL 10 MG TAB PO SCH (08:23)
[2023-10-25] MEDS: RIFAXIMIN 550 MG TABLET PO SCH (08:23)
[2023-10-25] MEDS: FERROUS SULFATE 325 MG TAB PO SCH (08:26)
[2023-10-25] MEDS: NICOTINE 21MG/24HR PATCH TRANSDERM SCH (08:28)
--- NOTE | 2023-10-25 17:26 | P.DS ---
Providers Date of admission: 10/19/23 00:02 Expected date of discharge: 10/25/23 Attending physician: Tuan Cheatham MD Primary care physician: [facility] Course: Discharge Diagnosis: Metabolic encephalopathy secondary to hyperammonemia resulting from advanced liver cirrhosis accompanied by current COVID pneumonia. Covid pneumonia Hyperammonemia Alcoholic liver cirrhosis Hyperbilirubinemia, secondary to alcoholic liver cirrhosis Elevated liver enzymes, secondary to alcoholic liver cirrhosis Pancytopenia, secondary to advanced liver cirrhosis Lactic acidosis secondary to liver cirrhosis, improving History of esophageal varices Hypertension Hyperlipidemia COPD Hypomagnesemia Hypoglycemia Hypokalemia, resolved Hospital Course: Patient is a very pleasant 63-year-old male with a past medical history of alcoholic liver cirrhosis with esophageal varices, COPD, hypertension, and hyperlipidemia. He presented to the emergency department overnight with a chief complaint of confusion. Patient had reportedly been constipated per family over the past few days and has a history of having elevated ammonia levels requiring hospitalizations. Patient underwent full evaluation in the emergency department. An EKG was completed showing sinus tachycardia at 102 bpm with T- wave inversion in lateral leads. Chest x-ray was completed showing. Hilar opacities concerning for possible pneumonia. Labs were completed and reviewed. CBC showing bicytopenia with normocytic anemia with hemoglobin of 11.5 and throm bocytopenia with platelet count of 85. Coagulation profile showing elevated PT of 14.5 and INR of 1.4. BMP revealing hyperchloremia with chloride of 114, bicarb of 17, and anion gap of 10 with elevated BUN of 22. Initial lactic acid was 4.2. Liver profile showing total bili of 2.1, AST of 102, ALT of 42, alkaline phosphatase is 152, and elevated ammonia levels of 77. Influenza A, influenza B, and RSV were negative. Covid PCR was positive. Patient was admitted under our services at this time. Repeat lactate downtrending at 2.7. MELD score is 16 at time of admission. Patient admitted under our services to general medical unit with telemetry. The patient denied having any symptoms or complaints from Covid pneumonia at this time. He was treated for hyperammonemia with lactulose 20 g 3 times daily and started on rifaximin 550 mg twice daily. Ammonia levels remained elevated lactulose was increased to 30 g 3 times a day along with continuation of rifaximin 550 mg twice daily. Patient was not able to obtain prescription for rifaximin as insurance declined and cost is significant. Patient discharged home with lactulose 30 g 3 times daily and educated on the importance of taking this medication to prevent further episodes of hyperammonemia resulting in metabolic encephalopathy. Patient is alert and oriented to person, place, time, and situation. He denies having any complaints at this time. Patient ambulating in room without any difficulties. Patient medically stable for discharge at this time and to follow up with PCP in 1-2 days and home office representative in 1 week. Physical exam: Vital signs reviewed and stable. General: Nontoxic, no distress and appears stated age. Derm: Skin warm and dry, normal coloration for ethnicity. Head: Atraumatic, normocephalic and symmetric. Eyes: EOMs intact, no lid lag, and anicteric sclera Mouth: no lip lesions, mucus membranes moist Cardiovascular: regular rate and rhythm with normal S1S2, no murmur, positive posterior tibial pulses bilaterally, and cap refill < 2 seconds. Lungs: Respirations even, regular, and unlabored on room air. Lungs CTA bilaterally, no rhonchi, no rales, no wheezing, and no accessory muscle usage. Abdominal: soft and distended, nontender to palpation, no guarding Ext: ROM intact. No gross muscle atrophy, no edema, no contractures Neuro: Speech clear, face symmetrical and CN II-XII grossly intact with no noted focal neuro deficits Psych: Alert and oriented to person, place, time, and situation. Appropriate and pleasant affect, however patient did appear slightly sleepy and withdrawn. A total of 36 minutes of time were spent preparing this complex discharge summary. Pt was discharged on 10/25/23 at 9:50 AM Patient was seen independently by Nurse Practitioner. This document was prepared using Treater dictation software. Please allow for errors in brand coordinator while rare they do occur. Ramses Angelo NP rendered care for this patient independently, reviewed the findings and plan as documented in the note above. I did not physically speak with or examine the patient on this date. Patient Condition at Discharge: Stable Plan - Discharge Summary Discharge Rx Participant: Yes New Discharge Prescriptions: New Lactulose [Cephulac] 30 gm PO TID 30 Days #2700 gram Continue Ferrous Sulfate [Iron (65 MG Elemental)] 325 mg PO MOWEFR Multivitamins, Thera [Multivitamin (formulary)] 1 tab PO DAILY lisinopriL [Zestril] 10 mg PO DAILY Thiamine [Vitamin B-1] 100 mg PO DAILY Levothyroxine Sodium [Synthroid] 125 mcg PO DAILY Ipratropium-Albuterol Nebulize [Duoneb 0.5 mg-3 mg/3 ml Soln] 3 ml INHALATION RT-Q6H PRN PRN Reason: Shortness Of Breath Magnesium Oxide [Mag-Ox] 400 mg PO BID Furosemide [Lasix] 40 mg PO DAILY #60 tab Albuterol Sulfate [Albuterol Sulfate Hfa] 2 puff PO RT-QID PRN PRN Reason: Shortness Of Breath Tamsulosin [Flomax] 0.4 mg PO DAILY Potassium Chloride 10 meq PO DAILY Fenofibrate 54 mg PO DAILY Discharge Medication List Ferrous Sulfate [Iron (65 MG Elemental)] 325 mg PO MOWEFR 08/18/18 [History] Multivitamins, Thera [Multivitamin (formulary)] 1 tab PO DAILY 09/14/19 [History] lisinopriL [Zestril] 10 mg PO DAILY 09/14/19 [History] Ipratropium-Albuterol Nebulize [Duoneb 0.5 mg-3 mg/3 ml Soln] 3 ml INHALATION RT-Q6H PRN 06/23/23 [History] Levothyroxine Sodium [Synthroid] 125 mcg PO DAILY 06/23/23 [History] Thiamine [Vitamin B-1] 100 mg PO DAILY 06/23/23 [History] Furosemide [Lasix] 40 mg PO DAILY #60 tab 06/27/23 [Rx] Albuterol Sulfate [Albuterol Sulfate Hfa] 2 puff PO RT-QID PRN 10/18/23 [History ] Fenofibrate 54 mg PO DAILY 10/18/23 [History] Magnesium Oxide [Mag-Ox] 400 mg PO BID 10/18/23 [History] Potassium Chloride 10 meq PO DAILY 10/18/23 [History] Tamsulosin [Flomax] 0.4 mg PO DAILY 10/18/23 [History] Lactulose [Cephulac] 30 gm PO TID 30 Days #2700 gram 10/25/23 [Rx] Follow up Appointment(s)/Referral(s): Ambreen Arzola MD [STAFF PHYSICIAN] - 1 Week (Office is not answering. Please call for a appointment due to cirrhosis of the liver.) [facility] [Primary Care Provider] - 11/02/23 4:30 pm Patient Instructions/Handouts: Cirrhosis (DC), Encephalopathy (DC) Discharge Disposition: HOME SELF-CARE
== END 2023-10-25 13:01 | disposition home or self-care (01) | DRG 177 ==
LOC: EC 21:10 → 3SCARD 10-19 00:02 → 4SSUR 10-19 15:49
PROVIDERS: ADMIT Internal Medicine; ATTEND Internal Medicine
PROC: 8E0ZXY6 Isolation (ICD-10-PCS; principal; 2023-10-19)
DX: U07.1 COVID-19 (principal); G93.41 Metabolic encephalopathy; J12.82 Pneumonia due to coronavirus disease 2019; E72.20 Disorder of urea cycle metabolism, unspecified; K76.6 Portal hypertension; D61.818 Other pancytopenia; E87.20 Acidosis, unspecified; J44.0 Chronic obstructive pulmonary disease with (acute) lower respiratory infection; K76.82 Hepatic encephalopathy; K70.30 Alcoholic cirrhosis of liver without ascites; K59.00 Constipation, unspecified; E80.6 Other disorders of bilirubin metabolism; I10 Essential (primary) hypertension; H91.90 Unspecified hearing loss, unspecified ear; F32.A Depression, unspecified; F17.200 Nicotine dependence, unspecified, uncomplicated; F10.21 Alcohol dependence, in remission; E87.8 Other disorders of electrolyte and fluid balance, not elsewhere classified; E11.649 Type 2 diabetes mellitus with hypoglycemia without coma; E78.5 Hyperlipidemia, unspecified; E83.42 Hypomagnesemia; E87.6 Hypokalemia; Z28.310 Unvaccinated for COVID-19; Z88.0 Allergy status to penicillin; Z90.5 Acquired absence of kidney; Z79.899 Other long term (current) drug therapy; Z79.890 Hormone replacement therapy
CPT/HCPCS: 36415; 71045; 80048; 80053; 80320; 81003; 82140; 83036; 83605; 83735; 85025; 85027; 85610; 85730; 87040; 87636; 93005; 96361; 96365; 96367; 96372; 96375; 96376; 99285

== ENCOUNTER 2024-02-04 14:25 | Emergency (ER) | payer MEDICARE, OTHER ==
[2024-02-04] MEDS: LORazepam 2 MG/ML INJ IV STA (14:37)
[2024-02-04 14:38] LABS: Glucose,Whole Blood 126 mg/dL (70-110)
--- NOTE | 2024-02-04 14:39 | ED ---
General Adult HPI - General Chief complaint: Altered Mental Status Stated complaint: AMS Time Seen by Provider: 02/04/24 14:31 Source: EMS Mode of arrival: ambulatory Limitations: altered mental status - History of Present Illness Initial comments: Dictation was produced using [employer] dictation software. please excuse any grammatical, word or spelling errors. Chief Complaint: 63-year-old male presents to the emergency department for altered mental status History of Present Illness: Patient 63-year-old male he has extensive past medical history including COPD, liver disease, dyslipidemia and diabetes and stroke. Patient brought in by EMS. EMS provides entirety of history of present illness. Patient was last normal sometime yesterday. Today he was found to be altered, minimally responsive and tremulous. He has been suffering frequent falls for the last 24 hours. Unable obtain ROS secondary to mental status - Related Data Home Medications Medication Instructions Recorded Confirmed Ferrous Sulfate [Iron (65 MG 325 mg PO MOWEFR 08/18/18 10/18/23 Elemental)] Multivitamins, Thera [Multivitamin 1 tab PO DAILY 09/14/19 10/18/23 (formulary)] lisinopriL [Zestril] 10 mg PO DAILY 09/14/19 10/18/23 Ipratropium-Albuterol Nebulize 3 ml INHALATION RT-Q6H PRN 06/23/23 10/18/23 [Duoneb 0.5 mg-3 mg/3 ml Soln] Levothyroxine Sodium [Synthroid] 125 mcg PO DAILY 06/23/23 10/18/23 Thiamine [Vitamin B-1] 100 mg PO DAILY 06/23/23 10/18/23 Albuterol Sulfate [Albuterol 2 puff PO RT-QID PRN 10/18/23 10/18/23 Sulfate Hfa] Fenofibrate 54 mg PO DAILY 10/18/23 10/18/23 Magnesium Oxide [Mag-Ox] 400 mg PO BID 10/18/23 10/18/23 Potassium Chloride 10 meq PO DAILY 10/18/23 10/18/23 Tamsulosin [Flomax] 0.4 mg PO DAILY 10/18/23 10/18/23 Previous Rx's Medication Instructions Recorded Furosemide [Lasix] 40 mg PO DAILY #60 tab 06/27/23 Lactulose [Cephulac] 30 gm PO TID 30 Days #2700 gram 10/25/23 Allergies Allergy/AdvReac Type Severity Reaction Status Date / Time Penicillins Allergy Unknown Verified 02/04/24 14:33 Childhood Review of Systems ROS Statement: Those systems with pertinent positive or pertinent negative responses have been documented in the HPI. ROS Other: All systems not noted in ROS Statement are negative. Past Medical History Past Medical History: COPD, CVA/TIA, Diabetes Mellitus, Hearing Disorder / Deafness, Hyperlipidemia, Hypertension, Liver Disease, Thyroid Disorder Additional Past Medical History / Comment(s): Currently admitted to [facility] with acute hepatic encephalopathy/increased ammonia levels. Other hx: Alcoholism, alcoholic liver cirrhosis, history of hepatic encephalopathy, portal hypertension and esophageal varices and portal hypertensive gastropathy, significant other states pt has not drank alcohol since March 2018, CVA, kidney stones, hypothyroidism, L ear deafness. Last Myocardial Infarction Date:: unknown History of Any Multi-Drug Resistant Organisms: None Reported Past Surgical History: Joint Replacement Additional Past Surgical History / Comment(s): Right nephrectomy as an for nonfunctioning kidney, bilateral total knee surgery, liver drain or stents done at [facility], EGD Past Anesthesia/Blood Transfusion Reactions: No Reported Reaction Additional Past Anesthesia/Blood Transfusion Reaction / Comment(s): blood trandfusion - no known reaction Past Psychological History: Bipolar, Depression Smoking Status: Current every day smoker Past Alcohol Use History: Abuse Past Drug Use History: None Reported - Past Family History Mother Family Medical History: Cancer Additional Family Medical History / Comment(s): skin cancer Father History Unknown: Yes Additional Family Medical History / Comment(s): pt was raised buy his step dad. General Exam - General Exam Comments Initial Comments: PHYSICAL EXAM: General Impression: Uncooperative, yelling help, pale HEENT: Normocephalic atraumatic, extra-ocular movements intact, pupils equal and reactive to light bilaterally, dry mucous membranes Cardiovascular: Heart regular rate and rhythm Chest: no retractions, no tachypnea Abdomen: abdomen soft, n mild distention Musculoskeletal: Pulses present and equal in all extremities, no peripheral edema Motor: Moving all extremities grossly Neurological: CN II-XII grossly intact, not following commands, truncal instability Limitations: altered mental status Course Vital Signs 02/04/24 02/04/24 02/04/24 14:27 14:44 14:55 Temperature 98.1 F Pulse Rate 117 H 106 H 109 H Respiratory 20 20 16 Rate Blood Pressure 186/104 164/121 125/82 O2 Sat by Pulse 97 94 L 96 Oximetry 02/04/24 02/04/24 02/04/24 15:05 15:10 15:15 Temperature Pulse Rate 100 98 93 Respiratory 15 19 18 Rate Blood Pressure 180/83 187/92 173/85 O2 Sat by Pulse 95 97 95 Oximetry 02/04/24 15:20 Temperature 97.0 F L Pulse Rate 93 Respiratory 16 Rate Blood Pressure 175/78 O2 Sat by Pulse 95 Oximetry - Reevaluation(s) Reevaluation #1: 02/04/24 16:00 patient seen and evaluated immediately in trauma bay #1. Differential upon initial time of evaluation was stroke versus head injury. Pat ient outside the window for alteplase. It is obscure when his last known normal was. EMS simply stated that "sometime yesterday" was when patient was last normal per patient's fianc. Allegedly patient is AO x 4 and able to perform back tibias of daily living independently. Patient went off to CT EKG Findings - EKG Comments: EKG Findings:: My EKG interpretation: Ventricular rate 99, sinus rhythm,. 160, QRS 85, QTc 423. No NC prolongation, no QTC prolongation, no ST or T-wave changes noted. Overall, this EKG is unremarkable Procedures - Intubation Sedative: Etomidate Paralytic: Rocuronium Laryngoscope: Karla Size: 3 ET Tube Size: 7.5 ET Tube Uncuffed: No Tube Secured Depth (cm): 23 Tube Secured Location: lips Tube Placement Confirmation: visualized tube passing through cords, equal breath sounds bilaterally, no breath sounds over epigastrium, confirmation by capnometry Patient Tolerated Procedure: well Intubation Complications: none Medical Decision Making - Medical Decision Making Was pt. sent in by a medical professional or institution (, PA, [employer], urgent care, hospital, or jail...) When possible be specific @ -No Did you speak to anyone other than the patient for history (EMS, parent, family, police, friend...)? What history was obtained from this source @ -Per EMS as stated above Did you review nursing and triage notes (agree or disagree)? Why? @ -I reviewed and agree with nursing and triage notes Were old charts reviewed (outside hosp., previous admission, EMS record, old EKG, old radiological studies, urgent care reports/EKG's, jail records)? Report findings @ -No old charts were reviewed Differential Diagnosis (chest pain, altered mental status, abdominal pain women, abdominal pain men, vaginal bleeding, musculoskeletal, weakness, fever, dyspnea, syncope, headache, dizziness, GI bleed, back pain, seizure, CVA, palpatations, mental health)? @ -Differential Altered Mental Status: Hypoglycemia, DKA, hypercapnia, ETOH, overdose, CO poisoning, trauma, myxedema coma, HTN encephalopathy, infection, encephalitis, psychosis, intercranial hemorrhage, hepatic encephalopathy, meningitis, CVA, this is not meant to be an all-inclusive list EKG interpreted by me (3pts min.). @ -My EKG interpretation: Ventricular rate 99, sinus rhythm,. 160, QRS 85, QTc 423. No NC prolongation, no QTC prolongation, no ST or T-wave changes noted. Overall, this EKG is unremarkable X-rays interpreted by me (1pt min.). @ -Chest and pelvis x-ray shows no acute processes CT interpreted by me (1pt min.). @ -CT scan of the brain shows well-circumscribed hyperdense lesion in the right hemisphere concerning for mass versus bleed. Case discussed with radiology states that imaging studies more consistent with bleed U/S interpreted by me (1pt. min.). @ -None done What testing was considered but not performed or refused? (CT, X-rays, U/S, labs)? Why? @ -None What meds were considered but not given or refused? Why? @ -None Did you discuss the management of the patient with other professionals (adele salguero i.e. , PA, [employer], lab, RT, psych nurse, social worker clinical, urban designer, teacher, correctional probation officer, manager of case)? Give summary @ -Case discussed with Dr. Chaney at [facility] who is agreeable for crespo sfer Was smoking cessation discussed for >3mins.? @ -No Was critical care preformed (if so, how long)? @ -Yes, 33 minutes Were there social determinants of health that impacted care today? How? (Yamila elessness, low income, unemployed, alcoholism, drug addiction, transportation, low edu. Level, literacy, decrease access to med. care, half-way, rehab)? @ -No Was there de-escalation of care discussed even if they declined (Discuss DNR or withdrawal of care, Hospice)? DNR status @ -No What co-morbidities impacted this encounter? (DM, HTN, Smoking, COPD, CAD, Cancer, CVA, ARF, Chemo, Hep., AIDS, mental health diagnosis, sleep apnea, morbid obesity)? @ -None Was patient admitted / discharged? Hospital course, mention meds given and route, prescriptions, significant lab abnormalities, going to OR and other pertinent info. @ -63-year-old male with multiple comorbidities presents to the emergency department for acute altered mental status. Last known normal was sometime yesterday. Vital signs upon arrival are within acceptable limits. Patient obviously altered at the bedside. Patient went to CT showing bleed versus mass. However given history present illness of frequent falls there is concern of bleed.Laboratory evaluation obtained. CBC, coag panel unremarkable. Metabolic panel shows mild nongap acidosis. Lactic acidosis of 4.9. He is a known liver disease patient. His is likely decreased lactate clearance from liver disease. Elevated liver enzymes. Ammonia of 198. Urinalysis within acceptable limits. Patient will be transferred to [facility] for further care. Undiagnosed new problem with uncertain prognosis? @ -No Drug Therapy requiring intensive monitoring for toxicity (Heparin, Nitro, Insulin, Cardizem)? @ -No Were any procedures done? @ -Endotracheal intubation Diagnosis/symptom? Acute, or Chronic, or Acute on Chronic? Uncomplicated (without systemic symptoms) or Complicated (systemic symptoms)? @ -Intracranial bleed, hyperammonia Side effects of treatment? @ -No Exacerbation, Progression, or Severe Exacerbation? @ -No Poses a threat to life or bodily function? How? (Chest pain, USA, GA, pneumonia, PE, COPD, DKA, ARF, appy, cholecystitis, CVA, Diverticulitis, Homicidal, Suicidal, threat to staff... and all critical care pts) @ -yes - Lab Data Result diagrams: 02/04/24 14:44 02/04/24 14:44 Lab Results 02/04/24 02/04/24 02/04/24 Range/Units 14:36 14:44 14:44 WBC 6.0 (3.8-10.6) k/uL RBC 3.70 L (4.30-5.90) m/uL Hgb 12.0 L (13.0-17.5) gm/dL Hct 36.5 L (39.0-53.0) % MCV 98.7 (80.0-100.0) fL MCH 32.5 (25.0-35.0) pg MCHC 33.0 (31.0-37.0) g/dL RDW 15.8 H (11.5-15.5) % Plt Count 113 L (150-450) k/uL MPV 9.2 Neutrophils % (Manual) 69 % Lymphocytes % (Manual) 22 % Monocytes % (Manual) 7 % Eosinophils % (Manual) 2 % Neutrophils # (Manual) 4.14 (1.3-7.7) k/uL Lymphocytes # (Manual) 1.32 (1.0-4.8) k/uL Monocytes # (Manual) 0.42 (0-1.0) k/uL Eosinophils # (Manual) 0.12 (0-0.7) k/uL Nucleated RBCs 0 (0-0) /100 WBC Manual Slide Review Performed Hypochromasia Slight Macrocytosis Slight PT 15.3 H (10.0-12.5) sec INR 1.5 H (<1.2) APTT 28.5 (22.0-30.0) sec Sodium (137-145) mmol/L Potassium (3.5-5.1) mmol/L Chloride (98-107) mmol/L Carbon Dioxide (22-30) mmol/L Anion Gap mmol/L BUN (9-20) mg/dL Creatinine (0.66-1.25) mg/dL Est GFR (CKD-EPI)AfAm (>60 ml/min/1.73 sqM) Est GFR (CKD-EPI)NonAf (>60 ml/min/1.73 sqM) Glucose (74-99) mg/dL POC Glucose (mg/dL) 126 H (70-110) mg/dL POC Glu Abstractor ID Kellen Bob Plasma Lactic Acid Iker (0.7-2.0) mmol/L Calcium (8.4-10.2) mg/dL Magnesium (1.6-2.3) mg/dL Total Bilirubin (0.2-1.3) mg/dL AST (17-59) U/L ALT (4-49) U/L Alkaline Phosphatase (38-126) U/L Ammonia (<30) umol/L Creatine Kinase (55-170) U/L Troponin I (0.000-0.034) ng/mL Total Protein (6.3-8.2) g/dL Albumin (3.5-5.0) g/dL Urine Color Urine Appearance (Clear) Urine pH (5.0-8.0) Ur Specific Capulin (1.001-1.035) Urine Protein (Negative) Urine Glucose (UA) (Negative) Urine Ketones (Negative) Urine Blood (Negative) Urine Nitrite (Negative) Urine Bilirubin (Negative) Urine Urobilinogen (<2.0) mg/dL Ur Leukocyte Esterase (Negative) Urine RBC (0-5) /hpf Urine WBC (0-5) /hpf Ur Squamous Epith Cells (0-4) /hpf Urine Mucus (None) /hpf 02/04/24 02/04/24 02/04/24 Range/Units 14:44 14:44 14:44 WBC (3.8-10.6) k/uL RBC (4.30-5.90) m/uL Hgb (13.0-17.5) gm/dL Hct (39.0-53.0) % MCV (80.0-100.0) fL MCH (25.0-35.0) pg MCHC (31.0-37.0) g/dL RDW (11.5-15.5) % Plt Count (150-450) k/uL MPV Neutrophils % (Manual) % Lymphocytes % (Manual) % Monocytes % (Manual) % Eosinophils % (Manual) % Neutrophils # (Manual) (1.3-7.7) k/uL Lymphocytes # (Manual) (1.0-4.8) k/uL Monocytes # (Manual) (0-1.0) k/uL Eosinophils # (Manual) (0-0.7) k/uL Nucleated RBCs (0-0) /100 WBC Manual Slide Review Hypochromasia Macrocytosis PT (10.0-12.5) sec INR (<1.2) APTT (22.0-30.0) sec Sodium 145 (137-145) mmol/L Potassium 3.9 (3.5-5.1) mmol/L Chloride 118 H (98-107) mmol/L Carbon Dioxide 18 L (22-30) mmol/L Anion Gap 9 mmol/L BUN 17 (9-20) mg/dL Creatinine 0.85 (0.66-1.25) mg/dL Est GFR (CKD-EPI)AfAm >90 (>60 ml/min/1.73 sqM) Est GFR (CKD-EPI)NonAf >90 (>60 ml/min/1.73 sqM) Glucose 135 H (74-99) mg/dL POC Glucose (mg/dL) (70-110) mg/dL POC Glu Abstractor ID Plasma Lactic Acid Iker 4.9 H* (0.7-2.0) mmol/L Calcium 7.9 L (8.4-10.2) mg/dL Magnesium 2.3 (1.6-2.3) mg/dL Total Bilirubin 2.3 H (0.2-1.3) mg/dL AST 82 H (17-59) U/L ALT 39 (4-49) U/L Alkaline Phosphatase 278 H (38-126) U/L Ammonia 198 H (<30) umol/L Creatine Kinase 103 (55-170) U/L Troponin I (0.000-0.034) ng/mL Total Protein 6.6 (6.3-8.2) g/dL Albumin 2.4 L (3.5-5.0) g/dL Urine Color Dark Brown Urine Appearance Clear (Clear) Urine pH 6.5 (5.0-8.0) Ur Specific Capulin 1.036 H (1.001-1.035) Urine Protein 1+ H (Negative) Urine Glucose (UA) Negative (Negative) Urine Ketones Trace H (Negative) Urine Blood Negative (Negative) Urine Nitrite Negative (Negative) Urine Bilirubin Negative (Negative) Urine Urobilinogen 6.0 (<2.0) mg/dL Ur Leukocyte Esterase Negative (Negative) Urine RBC 5 (0-5) /hpf Urine WBC 2 (0-5) /hpf Ur Squamous Epith Cells <1 (0-4) /hpf Urine Mucus Rare H (None) /hpf 02/04/24 Range/Units 14:44 WBC (3.8-10.6) k/uL RBC (4.30-5.90) m/uL Hgb (13.0-17.5) gm/dL Hct (39.0-53.0) % MCV (80.0-100.0) fL MCH (25.0-35.0) pg MCHC (31.0-37.0) g/dL RDW (11.5-15.5) % Plt Count (150-450) k/uL MPV Neutrophils % (Manual) % Lymphocytes % (Manual) % Monocytes % (Manual) % Eosinophils % (Manual) % Neutrophils # (Manual) (1.3-7.7) k/uL Lymphocytes # (Manual) (1.0-4.8) k/uL Monocytes # (Manual) (0-1.0) k/uL Eosinophils # (Manual) (0-0.7) k/uL Nucleated RBCs (0-0) /100 WBC Manual Slide Review Hypochromasia Macrocytosis PT (10.0-12.5) sec INR (<1.2) APTT (22.0-30.0) sec Sodium (137-145) mmol/L Potassium (3.5-5.1) mmol/L Chloride (98-107) mmol/L Carbon Dioxide (22-30) mmol/L Anion Gap mmol/L BUN (9-20) mg/dL Creatinine (0.66-1.25) mg/dL Est GFR (CKD-EPI)AfAm (>60 ml/min/1.73 sqM) Est GFR (CKD-EPI)NonAf (>60 ml/min/1.73 sqM) Glucose (74-99) mg/dL POC Glucose (mg/dL) (70-110) mg/dL POC Glu Abstractor ID Plasma Lactic Acid Iker (0.7-2.0) mmol/L Calcium (8.4-10.2) mg/dL Magnesium (1.6-2.3) mg/dL Total Bilirubin (0.2-1.3) mg/dL AST (17-59) U/L ALT (4-49) U/L Alkaline Phosphatase (38-126) U/L Ammonia (<30) umol/L Creatine Kinase (55-170) U/L Troponin I <0.012 (0.000-0.034) ng/mL Total Protein (6.3-8.2) g/dL Albumin (3.5-5.0) g/dL Urine Color Urine Appearance (Clear) Urine pH (5.0-8.0) Ur Specific Capulin (1.001-1.035) Urine Protein (Negative) Urine Glucose (UA) (Negative) Urine Ketones (Negative) Urine Blood (Negative) Urine Nitrite (Negative) Urine Bilirubin (Negative) Urine Urobilinogen (<2.0) mg/dL Ur Leukocyte Esterase (Negative) Urine RBC (0-5) /hpf Urine WBC (0-5) /hpf Ur Squamous Epith Cells (0-4) /hpf Urine Mucus (None) /hpf Disposition Clinical Impression: Intracranial bleed Disposition: OTHER INSTITUTION NOT DEFINED Condition: Critical Referrals: [facility] [Primary Care Provider] - 1-2 days Time of Disposition: 16:05 - Out of Hospital Transfer - Req. Specs Out of Hospital Transfer - Requested Specifics: Other Emergency Center ([facility])
[2024-02-04] MEDS: SODIUM CHLORIDE 0.9% 500 ML 500 ML IV STA (14:40)
[2024-02-04 14:57] LABS: HCT 36.5 % (39.0-53.0); Hypochromasia Slight; MCH 32.5 pg (25.0-35.0); MCV 98.7 fL (80.0-100.0); Macrocytosis Slight; Mean Platelet Volume 9.2; Platelet Count 113 k/uL (150-450); RDW 15.8 % (11.5-15.5)
[2024-02-04 15:00] LABS: INR 1.5 (<1.2); Partial Thromboplastin Time 28.5 sec (22.0-30.0); Prothrombin Time 15.3 sec (10.0-12.5)
[2024-02-04 15:03] LABS: ALT 39 U/L (4-49); AST 82 U/L (17-59); African American GFR (CKD) >90 (>60 ml/min/1.73 sqM); Albumin 2.4 g/dL (3.5-5.0); Alkaline Phosphatase 278 U/L (38-126); Anion Gap 9 mmol/L; Blood Urea Nitrogen 17 mg/dL (9-20); Calcium 7.9 mg/dL (8.4-10.2); Carbon Dioxide 18 mmol/L (22-30); Chloride 118 mmol/L (98-107); Creatine Kinase 103 U/L (55-170); Glucose 135 mg/dL (74-99); Magnesium 2.3 mg/dL (1.6-2.3); Non-African American GFR(CKD) >90 (>60 ml/min/1.73 sqM); Potassium 3.9 mmol/L (3.5-5.1); Sodium 145 mmol/L (137-145); Total Bilirubin 2.3 mg/dL (0.2-1.3); Total Protein 6.6 g/dL (6.3-8.2)
[2024-02-04 15:12] LABS: Lactic Acid, Venous 4.9 mmol/L (0.7-2.0)
--- NOTE | 2024-02-04 15:23 | CT ---
EXAMINATION TYPE: CT brain cspine wo con DATE OF EXAM: 02/04/2024 COMPARISON: CT brain on 07/11/2023. HISTORY: Altered mental status. CT DLP: 1516 mGycm Automated exposure control for dose reduction was used. TECHNIQUE: CT scan of the head and cervical spine are performed without contrast. FINDINGS: There is a hyperdense masslike area within the parietal white matter measuring approximat reena 2.3 cm in diameter. This could partially represent an area of hemorrhage. There is no surrounding edema or mass effect otherwise noted. An underlying mass would also be difficult to exclude. There i s patchy hypoattenuation otherwise seen within the paraventricular, subcortical and deep white matter which likely relates to chronic ischemic small vessel disease. The masslike area is new since the pr evious examination. No definitive acute major vessel infarct is seen at the simental-white distinction ot herwise appears intact. Cervical spine is visualized in its entirety from C1 through upper thoracic levels and demonstrates s atisfactory alignment without evidence of acute fracture or dislocation. Prevertebral soft tissue ap pears within normal limits. The C1-C2 articulation is unremarkable. IMPRESSION: 1. Hemorrhage versus hemorrhagic mass within the right parietal white matter. 2. No acute infarct. 3. No fracture, subluxation or dislocation of the cervical spine. These critical findings were discussed with Dr. Valdez.
[2024-02-04 15:33] LABS: Appearance,Urine Clear (Clear); Bilirubin,Urine Negative (Negative); Blood,Urine Negative (Negative); Color,Urine Dark Brown; Glucose,Urine (UA) Negative (Negative); Ketones,Urine Trace (Negative); Leukocyte Esterase,Urine Negative (Negative); Mucus,Urine Rare /hpf; Nitrite,Urine Negative (Negative); PH, Urine 6.5 (5.0-8.0); Protein,Urine 1+ (Negative); RBC,Urine 5 /hpf (0-5); Specific Gravity,Urine 1.036 (1.001-1.035); Squamous Epithelial Cell,Urine <1 /hpf (0-4); WBC,Urine 2 /hpf (0-5)
[2024-02-04 15:40] VITALS: RESP 16
[2024-02-04 15:47] LABS: Eosinophils # (M) 0.12 k/uL (0-0.7); Lymphocytes # (M) 1.32 k/uL (1.0-4.8); Monocytes # (M) 0.42 k/uL (0-1.0); Neutrophils # (M) 4.14 k/uL (1.3-7.7); Neutrophils % (M) 69 %; Nucleated Red Blood Cells 0 /100 WBC (0-0); Total Cells Counted 100
[2024-02-04] MEDS: ETOMIDATE 2 MG/ML 10 ML VIAL IVP STA (15:53)
--- NOTE | 2024-02-04 15:53 | XR ---
AP pelvis. DATE: 02/04/2024. COMPARISON: None available. HISTORY: Frequent falls. IMPRESSION: There is no fracture, subluxation or dislocation. There are hip joint spaces are mildly narrowed bilaterally.
--- NOTE | 2024-02-04 15:53 | XR ---
EXAMINATION TYPE: XR chest 1V portable DATE OF EXAM: 02/04/2024 COMPARISON: 10/19/2023. HISTORY: Altered mental status with frequent falls. TECHNIQUE: Single frontal view of the chest is obtained. FINDINGS: There is no focal air space opacity, pleural effusion, or pneumothorax seen. The cardiac silhouette size is within normal limits. The osseous structures are intact. IMPRESSION: No acute process.
[2024-02-04] MEDS: ROCURONIUM 10 MG/ML (5 ML VIAL) IV STA (15:54)
--- NOTE | 2024-02-04 16:13 | XR ---
EXAMINATION TYPE: XR chest 1V portable DATE OF EXAM: 02/04/2024 COMPARISON: 02/04/2024 at 3:41 PM. HISTORY: ET and NG tube placement. TECHNIQUE: Single frontal view of the chest is obtained. IMPRESSION: 1 age-related NG tube tip projects over the diaphragm and not included on the evaluation. Endotrachea l tube tip is approximately 4.6 cm above the miko. Transferred to her next available Evaluation of the heart and lungs is otherwise unchanged.
[2024-02-04] MEDS: LABETALOL 5 MG/ML VIAL MDV IVP STA (16:32)
[2024-02-04] MEDS: LACTULOSE 20 GM/30 ML CUP OG-TUBE SCH (16:34)
[2024-02-04] MEDS: LACTULOSE 200 GM/300 ML (FROM 1/2 GAL JUG) RECTAL ONE (16:35)
[2024-02-04 17:14] VITALS: BP 173/86; PULSE 70; TEMP 97.9
== END 2024-02-04 16:55 | disposition other institution (70) ==
LOC: EC 14:25
DX: I61.9 Nontraumatic intracerebral hemorrhage, unspecified (principal); E87.20 Acidosis, unspecified; K76.9 Liver disease, unspecified; E11.9 Type 2 diabetes mellitus without complications; I10 Essential (primary) hypertension; I25.2 Old myocardial infarction; J44.9 Chronic obstructive pulmonary disease, unspecified; E03.9 Hypothyroidism, unspecified; F17.200 Nicotine dependence, unspecified, uncomplicated; Z79.899 Other long term (current) drug therapy; Z79.890 Hormone replacement therapy; Z88.0 Allergy status to penicillin; Z86.73 Personal history of transient ischemic attack (TIA), and cerebral infarction without residual deficits
CPT/HCPCS: 36415; 94002; 93005; 80053; 82140; 82550; 83605; 83735; 84484; 85025; 85610; 85730; 81001; 72170; 71045; 72125; 70450; 31500; 99291; 96374; 96375; J2060; J2704; J1920